=== PATIENT | male | born 1955 | race Caucasian/White ===

== ENCOUNTER → 2021-12-28 12:00 | Outpatient (BNVA) | payer MEDICARE, SELFPAY | PROVIDERS: Visit Provider Emergency Medicine | DX: R05.9 Cough, unspecified (principal); R06.02 Shortness of breath | CPT/HCPCS: 71046 ==

== ENCOUNTER 2022-01-04 13:10 | Outpatient (CLI) | payer MEDICARE, SELFPAY ==
--- NOTE | 2022-01-04 13:30 | CT_ITS ---
WS: [id number] CT CHEST TECHNIQUE: Noncontrast CT of the chest with coronal and sagittal reformatted images. CLINICAL INFORMATION: R91.8 - Other nonspecific abnormal finding of lung field COMPARISON: None. DLP: 771.[address] scans at [facility] use at least one of these dose optimization techniques: automated e xposure control; mA and/or kV adjustment per patient size (includes targeted exams where dose is matc hed to clinical indication); or iterative reconstruction. FINDINGS: Large RIGHT hilar and suprahilar mass measuring approximately 4.9 x 5.9 x 10.3 cm AP by transverse by craniocaudal. Mild associated narrowing of the RIGHT mainstem and RIGHT upper lobe bronchi. Associat ed mediastinal invasion. Anterior mediastinal and RIGHT hilar lymphadenopathy. Bulky subcarinal lymph adenopathy. Associated extension into the RIGHT upper lobe anteriorly along the anterior mediastinum. Compression of the SVC. Several noncalcified nodules in both lungs mainly in a subpleural location the largest measuring 7 mm . Normal GE junction. Noncontrast pancreas is normal. Splenic granulomas. Adrenal glands are normal. No axillary lymphadenopathy. CT/CT chest wo con [id number] IMPRESSION: 1. Large RIGHT hilar and suprahilar mass with compression of the SVC compatibl e with neoplasm. Recommend further evaluation with bronchoscopy. 2. Associated mediastinal invasion with bulky anterior mediastinal, RIGHT inez r, peribronchial, subcarinal lymphadenopathy. 3. Multiple noncalcified subpleural pulmonary nodules largest measuring 5 to 6 mm bilaterally. These are nonspecific but metastatic disease not excluded.
== END 2022-01-04 13:11 | disposition home or self-care (01) ==
LOC: RAD 13:14
PROVIDERS: Referring Provider Internal Medicine Pulmonary Disease; Visit Provider Emergency Medicine
DX: R91.8 Other nonspecific abnormal finding of lung field (principal); R05.9 Cough, unspecified; R06.02 Shortness of breath
CPT/HCPCS: 71250

== ENCOUNTER → 2022-01-07 08:31 | Outpatient (BNVA) | payer MEDICARE, SELFPAY | LOC: GILAB 01-08 06:05 → PULOACUTE 01-08 06:18 | PROVIDERS: PCP Emergency Medicine; Visit Provider Internal Medicine Pulmonary Disease | DX: R91.8 Other nonspecific abnormal finding of lung field (principal); R59.0 Localized enlarged lymph nodes; R68.89 Other general symptoms and signs; Z71.6 Tobacco abuse counseling; F17.210 Nicotine dependence, cigarettes, uncomplicated | CPT/HCPCS: 99204 ==

== ENCOUNTER 2022-01-08 07:37 | Day surgery (SDC) | payer MEDICARE, SELFPAY ==
[2022-01-08] VITALS (8 sets, daily range): BP systolic 121–142; BP diastolic 76–99; PULSE 68–91; RESP 18; TEMP 36.6–37.2; O2SAT 90–95; BMI 33.6
--- NOTE | 2022-01-08 08:40 | ANES.PREANE2 ---
Pre-Anesthetic Assessment Height/Weight: Height 1.7 m Weight 97.522 kg Temp Pulse Resp BP Pulse Ox O2 Del Method O2 Flow Rate 97.8 F 68 18 121/78 94 2 01/08/22 08:32 01/08/22 08:32 01/08/22 08:32 01/08/22 08:32 01/08/22 08:33 01/08/22 08:33 01/08/22 08:33 Operation Date: 01/08/22 09:20 Proposed Procedures p Ebus(Not Applicable) - Vito Chatterjee MD s Bronchoscopy(Not Applicable) - Vito Chatterjee MD Familial anesthetic complications: none Was Beta Arlene taken within 24 hours: Yes Was Clonidine taken within 24 hours: N/A Last intake: Intake Last Liquid Date 01/07/22 Last Liquid Time 22:30 Last Solid Date 01/07/22 Last Solid Time 18:00 Social Tobacco and No alcohol Exam alert, oriented x 3 and regular rate & rhythm Airway Submandibular: within normal limits Cervical ROM: within normal limits Mallampati: Class II Dentition: false Pulmonary Chronic Obstructive Pulmonary Disease and Sleep Apnea CV/HEM Coronary Artery Disease (stent), Hypertension, Myocardial Infarction and Peripheral Vascular Disease (AAA stent) Metabolic Morbid Obesity Anesthetic Plan ASA status: 3 Anesthesia: General Medications/Allergies Home Medications Medication Instructions Recorded Confirmed Last Taken Type albuterol sulfate 90 mcg/actuation 2 puff inhalation Q6H PRN 12/28/21 01/08/22 01/07/22 Rx aerosol inhaler shortness of breath or wheezing #8.5 grams ipratropium 0.5 mg-albuterol 3 mg 3 ml inhalation QID #180 mL 01/02/22 01/08/22 01/07/22 Rx (2.5 mg base)/3 mL nebulization soln nebulizers #1 ea 01/02/22 01/08/22 01/07/22 Rx amoxicillin 875 mg-potassium 1 tab PO BID 7 days #14 tabs 01/07/22 01/08/22 01/07/22 Rx clavulanate 125 mg tablet aspirin 81 mg tablet,delayed 81 mg PO DAILY 01/07/22 01/08/22 01/06/22 History release gabapentin 300 mg capsule 300 mg PO TID 01/07/22 01/08/22 01/07/22 History metoprolol tartrate 50 mg tablet 50 mg PO BID 01/07/22 01/08/22 01/08/22 History omeprazole 20 mg capsule,delayed 20 mg PO DAILY 01/07/22 01/08/22 01/07/22 History release tiotropium bromide 1.25 2 puff inhalation DAILY #4 grams 01/07/22 01/08/22 Unknown Rx mcg/actuation mist for inhalation (Spiriva Respimat) Allergies Allergy/AdvReac Type Severity Reaction Status Date / Time Statin Allergy Unknown Uncoded 01/07/22 08:48 [facility] Anesthesia Medical History Hilar mass Tuberculous tracheobronchial adenopathy Social History Smoking and tobacco status: current every day smoker cigarettes Packs smoked per day: 1.5 Years cigarettes smoked: 52 [ Other cigarette details: started at age 14] Data Anesthesia Cardiac Studies: No Data to Display
[2022-01-08] MEDS: sodium chloride 0.9% 1,000 ML 30 ML IV (12:03)
--- NOTE | 2022-01-08 12:32 | W.PM.OPSUD ---
Surgery/Procedure H&P Update DATE OF PROCEDURE: January 08, 2022 DATE H&P PERFORMED: 01/08/22 CHANGES TO PREVIOUS DOCUMENTATION: NONE PRIMARY INDICATION FOR PROCEDURE: HILAR /MEDIASTINAL LYMPHADENOPAHTY IN SMOKER - SUSPICIOUS FOR MALIGNANCY PLANNED PROCEDURE: Operation Date: 01/08/22 09:20 Proposed Procedures p Ebus(Not Applicable) - Vito Chatterjee MD s Bronchoscopy(Not Applicable) - Vito Chatterjee MD
[2022-01-08] MEDS: EPINEPHrine 1 mg/mL INJ XX (13:57)
[2022-01-08] MEDS: lidocaine 1% INJ 20 mL XX (13:57)
--- NOTE | 2022-01-08 14:05 | PM.OP ---
Operative Report Date of procedure: January 08, 2022 Pre-op diagnosis: suspected malignancy Post-op diagnosis: same Procedure done: 71884:Bronch via Trach site 70266:Dx Bronchoscope w/Washings or airway inspection 53217:Dx Bronchoscope w/BAL 57633:EBUS Sampling 1/2 nodes Brief History: 66-year-old male referred for mediastinal/hilar mass on recent imaging 01/04/2022. Patient endorses the loss of appetite as well as weight loss which he has been noticing last few months but could not quantify. Chest x-ray 12/28/2021 showed probable right hilar mass with associated right tracheobronchial lymphadenopathy for which he underwent a CT chest 01/04/2022 confirmed a large right hilar suprahilar mass with compression of SVC compatible with neoplasm and there is associated mediastinal invasion with bulky anterior mediastinal right hilar peribronchial and subcarinal lymphadenopathy.? There are multiple noncalcified subpleural pulmonary nodules largest measuring 5 to 6 mm bilaterally. Patient is current every day smoker, 1.5ppd X 52 years.? Currently smoking 1 pack/day.? Given his a significant smoking history these findings on CT chest are suspicious for malignancy. Today scheduled for bronchoscopic evaluation and endobronchial ultrasound-guided biopsies of hilar/mediastinal mass. Procedure: 24872:Bronch via Trach site 16404:Dx Bronchoscope w/Washings or airway inspection 29978:Dx Bronchoscope w/BAL 91042:EBUS Sampling 1/2 nodes Surgeon: Vito Chatterjee MD, [facility] Indication: large right hilar suprahilar mass with compression of SVC compatible with neoplasm and there is associated mediastinal invasion with bulky anterior mediastinal right hilar peribronchial and subcarinal lymphadenopathy-highly suspicious for malignancy in this patient with chronic smoking history. Anesthesia: General anesthesia. Local anesthesia: The yrn in the right and left mainstem bronchi were anesthetized with 1% lidocaine, 3 mL. Description of the procedure: The procedure was explained to the patient and the consent was obtained. The patient was brought to the OR. The patient underwent laryngeal mask airway for general anesthesia. Following induction of general anesthesia, the bronchoscope was advanced through the LMA. The trachea mucosa appeared normal, no endotracheal lesion was seen. The yrn was sharp. The ynr, the right and left mainstem bronchi are anesthetized with 1% lidocaine. In a systematic manner bilateral bronchial tree was then examined. The bronchoscope was advanced into the left mainstem bronchus. The mucosa appeared normal with no endobronchial lesions. The left upper lobe, lingula and left lower lobe bronchi were examined up to the third subsegmental level and no abnormalities were identified. Mucosa appeared normal with no endobronchial lesion, active bleeding or mucous plug. There were some clear secretions in lower lobe-which were suctioned right away. The bronchoscope was then introduced into the right mainstem bronchus. The right upper lobe, right middle lobe and right lower lobe bronchi were examined up to the third subsegmental level and no abnormalities were identified. The mucosa appeared normal with no endobronchial lesions, active bleeding or mucous plugs. Bronchoalveolar lavage was performed from the right upper lobe. 30 mL of saline was instilled, fluid return was 15 mL. The bronchoscope was retracted and endobronchial ultrasound was introduced. Identified a lymph node in station 7 area and fine-needle aspiration cytology samples were obtained. Prepared 1 touch prep from station 7 lymph node for JEN and preliminary pathology diagnosis was suspicious for malignancy. I made 3-4 more passes and obtained in station 7 area and tissue was placed in formalin for histopathology review. Also identified a large mass in 4R area- I made 3-4 more passes and obtained in station 7 area and tissue was placed in formalin for histopathology review. There were some bleeding from biopsy sites, which was controlled with cold saline and epinephrine mixture. EBUS retracted. Diagnostic bronchoscope reintroduced and after making sure there is no active bleeding, procedure was terminated. Samples: 1. Bronchoalveolar lavage specimen was sent for cell count and differential, gram stain and culture 2. EBUS guided fine-needle aspiration cytology of station 7 lymph node station 4R-samples sent in formalin for histopathology review Complications: None.The patient was extubated and brought to the PACU in stable condition. Disposition: Patient can be discharged home in stable condition. I will set up clinic follow-up in 7-10 days to follow-up on biopsy results.
[2022-01-08 14:45] LABS: Cyto Order Verification Order Verified
--- NOTE | 2022-01-08 16:08 | ANE.PACU2 ---
Inpatient post-anesthesia follow up: Airway intact: Yes Vital signs: Temperature 99.0 F Pulse Rate 84 Respiratory Rate 18 Blood Pressure 134/99 Pulse Oximetry 92 Oxygen Delivery Me thod Room Air Oxygen Flow Rate 2 Fraction of Inspir ed Oxygen Hydration adequate: Yes Nausea and vomiting: No Pain level: 2 Mental status: Baseline
[2022-01-09 14:15] LABS: Lymphoma Profile (BBPL) See Report
== END 2022-01-08 15:01 | disposition home or self-care (01) ==
PROVIDERS: PCP Emergency Medicine; Visit Provider Internal Medicine Pulmonary Disease
PROC: BB4BZZZ Ultrasonography of Pleura (ICD-10-PCS; principal; 2022-01-08 09:10)
PROC: 0BJ08ZZ Inspection of Tracheobronchial Tree, Via Natural or Artificial Opening Endoscopic (ICD-10-PCS; CPT 31622; 2022-01-08 09:10)
DX: C34.90 Malignant neoplasm of unspecified part of unspecified bronchus or lung (principal); I25.10 Atherosclerotic heart disease of native coronary artery without angina pectoris; J44.9 Chronic obstructive pulmonary disease, unspecified; G47.30 Sleep apnea, unspecified; Z95.5 Presence of coronary angioplasty implant and graft; I10 Essential (primary) hypertension; I25.2 Old myocardial infarction; E66.01 Morbid (severe) obesity due to excess calories; Z68.33 Body mass index [BMI] 33.0-33.9, adult; Z79.82 Long term (current) use of aspirin; F17.210 Nicotine dependence, cigarettes, uncomplicated
CPT/HCPCS: 31624; 31652; 80503; 87070; 87077; 87102; 87186; 87205; 87206; 88108; 88184; 88185; 88305; 88342; J0171; J2704; J7030

== ENCOUNTER → 2022-01-22 14:10 | Outpatient (BNVA) | payer MEDICARE, SELFPAY | PROVIDERS: PCP Emergency Medicine; Visit Provider Surgery | DX: C34.90 Malignant neoplasm of unspecified part of unspecified bronchus or lung (principal) | CPT/HCPCS: 99203 ==

== ENCOUNTER 2022-01-24 10:16 | Day surgery (SDC) | payer MEDICARE, SELFPAY ==
[2022-01-23 14:27] VITALS: BMI 32.8
[2022-01-24] VITALS (9 sets, daily range): BP systolic 106–137; BP diastolic 68–94; PULSE 57–64; RESP 17–25; TEMP 36.3–36.6; O2SAT 91–99
--- NOTE | 2022-01-24 | SCC_ITS ---
Procedure done: Mediport insertion 37 seconds of fluoroscopic guidance, for a cumulative dose of 9.8 mGy, was provided to Dr. Peña by the radiology department. C-arm images of the chest were saved for the patient's permanent record. [facility]
--- NOTE | 2022-01-24 | XR_ITS ---
WS: [id number] Portable AP upright chest, 01/24/2022 Clinical Data: pacu, post op, mediport Comparison: PA and lateral chest, 12/28/2021 Findings: The large right hilar and right tracheobronchial mass remains the same. The right diaphragm is elevated. There is a left infusion catheter which ends in the superior vena cava. The heart is sl ightly enlarged. The aortic arch shows calcification and tortuosity. The left lung is clear. There is a monitor lead on the chest wall. XR/XR chest 1V portable [id number] Impression: 1. No change in right hilar and right upper lobe mass. 2. Atherosclerosis.
--- NOTE | 2022-01-24 10:25 | W.PM.OPSUD ---
Surgery/Procedure H&P Update DATE OF PROCEDURE: January 24, 2022 DATE H&P PERFORMED: 01/22/22 PLANNED PROCEDURE: Operation Date: 01/24/22 11:50 Proposed Procedures p 11470 port a cath placement C34.90(Not Applicable) - Prasanth Peña DO
--- NOTE | 2022-01-24 10:28 | SC_ITS ---
WS: [id number] C-arm fluoroscopy of infusion port placement, 01/24/2022 Clinical Data: s/p mediport Comparison: None. Findings: Dr. Peña placed a left subclavian port catheter and the tip of the port ends in the superior vena cava. SC/C-arm FL for CVA 62025 Impression: Left infusion port catheter placement.
[2022-01-24] MEDS: sodium chloride 0.9% 1,000 ML 30 ML IV (10:50)
[2022-01-24] MEDS: ceFAZolin 2,000 MG in sodium chloride 0.9% (plus) 50 ML 100 MG IV (11:36)
[2022-01-24] MEDS: heparin, porcine 1,000 unit/mL INJ 10 mL 10000 UNIT INJECTION (12:06)
--- NOTE | 2022-01-24 13:06 | PM.OP ---
Operative Report Date of procedure: January 24, 2022 Pre-op diagnosis: Preop Diagnosis Lung cancer Post-op diagnosis: same Procedure done: Mediport insertion Implants: Mediport Surgeon: Dr. Prasanth Peña DO Anesthesia: MAC Estimated blood loss (mL): 20 Complications: None apparent Brief History: This very pleasant 66-year-old gentleman with lung cancer. Mediport placement is indicated for chemotherapy. The risks and benefits were explained and documented. Procedure: Patient was taken to the operating room and placed supine on the operating room table. All bony prominences were padded. She was given IV sedation and monitored throughout the case by the anesthesia personnel. SCDs were placed and turned on. The arms were tucked to the side. Patient received Ancef 2 g preoperatively IV. The bilateral chest wall was prepped and draped in usual sterile fashion using chlorhexidine base prep. Sterile drapes were applied. We did procedure pause prior to beginning. An 18 gauge needle was placed in the right/left subclavian vein. Dark, nonpulsatile blood was aspirated. A guidewire was placed through the needle centrally toward the atrial/vena caval junction. Fluoroscopy visualized good placement. The needle was removed and the guidewire was clipped to the drape with a hemostat. Further local anesthetic was infiltrated in the soft tissues of the right/left chest wall and a #15 blade was used to make a horizontal skin incision. A subcutaneous Mediport pocket was created using Bovie cautery, dissecting down through the skin and subcutaneous tissues. Meticulous hemostasis was achieved. The Mediport was sutured in position using 3-0 vicryl suture x2 stitches. A #15 blade was used to make a small skin luz around the guidewire insertion area. The Mediport tubing was tunneled through the subcutaneous tissues up to the needle insertion location. A dilator with a peel-away sheath was placed over the guidewire and placed centrally. After measuring with fluoroscopy, the Mediport tubing was cut to length so that the tip would end at the atrial/vena caval junction. The inner cannula and the guidewire were removed, leaving the dilator sheath in place. The Mediport was flushed. The tip of the catheter was inserted through the peel-away sheath and the peel-away sheath removed in the standard fashion. Despite numerous attempts to get the catheter to go caudad towards the heart, it repeatedly would go across the mediastinum. The Mediport was accessed with a straight Tillman needle and dark, nonpulsatile blood was aspirated and flushed using heparinized saline to hep-lock the Mediport. The Mediport was functioning very well. Final fluoroscopy visualization showed no kink in the catheter and the tip of the Mediport going across the mediastinum. But again the Mediport was functioning very well.. Both skin incisions were thoroughly irrigated and suctioned dry. Meticulous hemostasis noted. The Mediport incision was closed using interrupted 3-0 Vicryl suture for the deep dermal layer and 4-0 Vicryl run to close the skin edge. The right/left subclavian insertion site incision was closed with a single subcuticular stitch. Skin glue was applied as a topical dressing. This was allowed to dry. Patient was awakened from anesthesia and transferred via her cart to the recovery room in stable condition. All needle, sponge, and instrument counts were correct per the operating personnel x2 count
--- NOTE | 2022-01-24 13:49 | P.ANESASSM_ITS ---
Pre-Anesthetic Assessment Height/Weight: Height 1.7 m Weight 95.254 kg Temp Pulse Resp BP Pulse Ox O2 Del Method O2 Flow Rate 97.6 F 61 19 H 117/76 94 6 01/24/22 13:30 01/24/22 13:30 01/24/22 13:30 01/24/22 13:30 01/24/22 13:30 01/24/22 13:30 01/24/22 13:20 Preop Diagnosis: Lung cancer Operation Date: 01/24/22 11:50 Proposed Procedures p [id number] port a cath placement C34.90(Not Applicable) - Prasanth Peña DO Familial anesthetic complications: none Was Beta Arlene taken within 24 hours: Yes Was Clonidine taken within 24 hours: N/A Last intake: Intake Last Liquid Date 01/24/22 Last Liquid Time 07:40 Last Solid Date 01/23/22 Last Solid Time 19:00 Social Tobacco and No alcohol Exam alert, oriented x 3 and regular rate & rhythm Airway Submandibular: within normal limits Cervical ROM: within normal limits Mallampati: Class II Dentition: false Pulmonary Chronic Obstructive Pulmonary Disease and Sleep Apnea CV/HEM Coronary Artery Disease (stents) and Hypertension GI Gastroesophageal Reflux Disease Metabolic Morbid Obesity Anesthetic Plan ASA status: 3 Anesthesia: Choice Medications/Allergies Home Medications Medication Instructions Recorded Confirmed Last Taken Type albuterol sulfate 90 mcg/actuation 2 puff inhalation Q6H PRN 12/28/21 01/23/22 01/07/22 Rx aerosol inhaler shortness of breath or wheezing #8.5 grams ipratropium 0.5 mg-albuterol 3 mg 3 ml inhalation QID #180 mL 01/02/22 01/23/22 01/07/22 Rx (2.5 mg base)/3 mL nebulization soln nebulizers #1 ea 01/02/22 01/22/22 01/07/22 Rx aspirin 81 mg tablet,delayed 81 mg PO DAILY 01/07/22 01/24/22 01/23/22 History release metoprolol tartrate 50 mg tablet 50 mg PO BID 01/07/22 01/24/22 01/24/22 07:40 History omeprazole 20 mg capsule,delayed 20 mg PO DAILY 01/07/22 01/24/22 01/23/22 Histo ry release gabapentin 300 mg capsule 300 mg PO BID 11/10/0501/24/22 01/23/22 History lorazepam 0.5 mg tablet (Ativan) 0.5 mg PO Q8H PRN anxiety #60 tabs 01/21/22 01/23/22 Unknown Rx oxycodone-acetaminophen 5 mg-325 1 - 2 tab PO .Q4-6H PRN pain 30 01/21/22 01/24/22 01/23/22 Rx mg tablet (Percocet) days #60 tabs umeclidinium 62.5 mcg-vilanterol 1 inh inhalation DAILY #60 ea 01/21/22 01/24/22 01/23/22 Rx 25 mcg/actuation powdr for inhalation (Anoro Ellipta) Allergies Allergy/AdvReac Type Severity Reaction Status Date / Time Statin Allergy Unknown Uncoded 01/23/22 14:15 Current Medications Generic Name Dose Route Start Last Admin Trade Name Freq PRN Reason Stop Dose Admin Sodium Chloride 1,000 mls @ 30 mls/hr 01/24/22 10:30 01/24/22 10:50 Sodium Chloride 0.9% IV 01/25/22 10:29 30 mls/hr .Q24H DESTINY Administration PFSH Anesthesia Medical History (Updated 01/23/22 @ 16:18 by Ayla Desai MD) Abdominal aortic aneurysm Carpal tunnel syndrome on both sides Congenital umbilical hernia Hilar mass Hypertension Past heart attack Small cell lung cancer Small cell lung cancer, right middle lobe Tuberculous tracheobronchial adenopathy Surgical History History of heart artery stent S/P rotator cuff repair Family History Other CAD (coronary artery disease) Cancer Diabetes Hyperlipidemia Hypertension Lung disease Psychiatric illness Stroke Denies family history of Clotting disorder Dementia Chronic kidney disease (CKD) Suicide Anesthesia complication Bleeding disorder Social History Smoking and tobacco status: former smoker (smoked x 50+ years) Alcohol intake: never Data Anesthesia Cardiac Studies: No Data to Display
[2022-01-24] MEDS: oxyCODONE-APAP 5-325 mg Tablet 1 TAB PO (14:11)
--- NOTE | 2022-01-24 14:33 | SUR.PHASEII ---
patient port site oozing minimally. additional dressing of gauze and tegaderm applied to incision site. instructed patient to leave for 2 days
--- NOTE | 2022-01-24 15:36 | ANE.PACU2 ---
Inpatient post-anesthesia follow up: Airway intact: Yes Vital signs: Temperature 97.6 F Pulse Rate 57 Respiratory Rate 18 Blood Pressure 125/76 Pulse Oximetry 91 Oxygen Delivery Me thod Room Air Oxygen Flow Rate 6 Fraction of Inspir ed Oxygen Hydration adequate: Yes Nausea and vomiting: No Pain level: 2 Mental status: Baseline
== END 2022-01-24 14:32 | disposition home or self-care (01) ==
PROVIDERS: PCP Emergency Medicine; Visit Provider Surgery
PROC: (CPT 36561; principal; 2022-01-24 11:40)
DX: C34.90 Malignant neoplasm of unspecified part of unspecified bronchus or lung (principal); J44.9 Chronic obstructive pulmonary disease, unspecified; G47.30 Sleep apnea, unspecified; I25.10 Atherosclerotic heart disease of native coronary artery without angina pectoris; Z95.5 Presence of coronary angioplasty implant and graft; I10 Essential (primary) hypertension; K21.9 Gastro-esophageal reflux disease without esophagitis; E66.01 Morbid (severe) obesity due to excess calories; Z68.32 Body mass index [BMI] 32.0-32.9, adult; Z79.82 Long term (current) use of aspirin
CPT/HCPCS: 36561; 71045; 77001; C1788; J0690; J1644; J2704; J3010; J7030

== ENCOUNTER 2022-02-04 09:09 | Inpatient (IN) | payer MEDICARE, SELFPAY ==
[2022-02-04] VITALS (43 sets, daily range): BP systolic 119–168; BP diastolic 77–104; PULSE 64–882; RESP 14–25; TEMP 36.5–36.8; O2SAT 90–98; BMI 33.0
--- NOTE | 2022-02-04 09:14 | ECG_ITS ---
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 Measurements Intervals [place] Rate: 65 P: -40 WA: 213 QRS: -60 QRSD: 114 T: 17 QT: 389 QTc: 407 Interpretive Statements SINUS RHYTHM WITH FIRST DEGREE AV BLOCK PATTERN CONSISTENT WITH PULMONARY DISEASE LEFT ANTERIOR FASCICULAR BLOCK [QRS AXIS <= -45, QR IN I, RS IN II] No previous ECG available for comparison Electronically Signed On 02-04-2022 17:08:07 [employer] by Mervin Noe M.D. [id number]
--- NOTE | 2022-02-04 09:14 | CT_ITS ---
WS: [id number] CT HEAD NONCONTRAST HISTORY: SYMPTOMS OF ACUTE STROKE TECHNIQUE: Contiguous axial imaging performed through the brain in 2.5 mm imaging. Bone and soft tiss ue windows. Sagittal and coronal reformats reviewed. All CT scans at [facility] use at least one of these dose optimization techniques: automated exposure control; mA and/or kV adjustment per pa tient size (includes targeted exams where dose is matched to clinical indication); or iterative recon struction. DLP: 1149.75 mGy-cm. COMPARISON: Recent MRI 01/23/2022 No acute intracranial hemorrhage, midline shift or mass effect. Very mild atrophy and mild to moderate small vessel ischemic type changes. No loss of the simpson-white matter differentiation. No hemorrhage. Ventricles: Normal size with no hydrocephalus. No inferior displacement of the cerebellar tonsils. Paranasal sinuses: As visualized are clear. Mastoid air cells: Well pneumatized. Calvarium and scalp: Skull is intact with no soft tissue edema or swelling. CT/CT head thrombolytic 25847 IMPRESSION: 1. No acute intracranial hemorrhage or edema. 2. Mild atrophy and mild to moderate small vessel ischemic changes.
--- NOTE | 2022-02-04 09:24 | ED_ITS ---
HPI - Neuro Symptoms/Deficit General: Chief Complaint: Neuro Symptoms/Deficit Stated Complaint: STROKE LIKE SYMPTOMS Time Seen by Provider: 02/04/22 09:14 History of Present Illness: 66-year-old male who presents to the emergency room from the waiting room of the oncology center with complaints of a right- sided weakness. He was there to get an infusion and suddenly began to feel nu mbness tingling weakness in his right arm and leg and developed facial weakness. He was able to identify all of his symptoms and vocalized them there was also report of some difficulty with his speech. Rapid response was called he was brought back to the emergency room as a stroke alert they stopped in CT suite initially. I seen very briefly there. His CT did not show any signs of bleed. He did have a subclavian PowerPort placed to 2 weeks ago on the left. Couple months ago he had a iliac stent placed. He has stage III lung cancer. Onset (ago): minute(s) Location: speech History of same: Yes Severity: mild Quality: weak and numb Relieving factors: none Exacerbating factors: none Context: sudden onset Associated symptoms: Reports tingling and weakness; Deny chest pain, cough, diaphoresis, fevers/chills, headache(s), anorexia, ma laise, nausea, seizures, short of breath, syncope, vertigo or vomiting Treatments Prior to Arrival: none Review of Systems Const: Denies: fever(s), chills, fatigue, malaise or diaphoresis ENMT: Denies: throat pain, ear or mastoid pain, nasal discharge or nasal congestion Card: Denies: chest pain or syncope Resp: Denies: dyspnea, productive cough or non-productive cough GI: Denies: abdominal pain, nausea or vomiting : Denies: flank pain, dysuria, urinary frequency or urinary urgency Skin/Breast: Denies: rash or pruritus Neuro: Reports: numbness in extremities, weakness in extremities, sensory changes, lack of coordination, difficulty walking, dizziness and Slurred speech present; Denies: headache(s) or vertigo PFS ED PFSH: Medical History (Updated 02/04/22 @ 12:13 by Dimas Cuadra DO) Abdominal aortic aneurysm Carpal tunnel syndrome on both sides Chronic back pain Congenital umbilical hernia COPD (chronic obstructive pulmonary disease) Coronary artery disease GERD (gastroesophageal reflux disease) Hilar mass Hypertension Past heart attack Small cell lung cancer Small cell lung cancer, right middle lobe Tuberculous tracheobronchial adenopathy Surgical History (Updated 02/04/22 @ 12:00 by Montrell Graff MD) History of endovascular stent graft for abdominal aortic aneurysm (AAA) History of heart artery stent S/P rotator cuff repair Family History Other CAD (coronary artery disease) Cancer Diabetes Hyperlipidemia Hypertension Lung disease Psychiatric illness Stroke Denies family history of Clotting disorder Dementia Chronic kidney disease (CKD) Suicide Anesthesia complication Bleeding disorder Social History Smoking and tobacco status: former smoker (smoked x 50+ years) Alcohol intake: never NIH stroke score NIHSS: Level Of Consciousness - 1a: 0 Level Of Consciousness Questions - 1b: Both Correct Level Of Consciousness Commands - 1c: Both Correct Best Gaze - 2: Normal Visual Vidal - 3: No Visual Loss Facial Palsy - 4: Minor Paralysis Motor Arm Right - 5: No Drift Motor Arm Left - 5: Effort Against [place] Motor Leg Right - 6: No Drift Motor Leg Left - 6: Effort Against [place] Limb Ataxia - 7: Present In Two Limbs Sensory - 8: Mild To Moderate Loss Best Language - 9: No Aphasia Dysarthia - 10: Normal Extinction And Inattention - 11: 0 Score: Total Score: 8 Physical Exam Const: GENERAL APPEARANCE: cooperative and comfortable ORIENTATION/CONSCIOUSNESS: Yes awake, Yes oriented to person, Yes oriented to place and Yes oriented to time HENMT: COMMON NORMALS: normocephalic, atraumatic and hearing grossly normal bilaterally HEAD & SCALP: normocephalic and atraumatic Resp: COMMON NORMALS: normal respiratory effort, No retractions, No use of accessory muscles and clear to auscultation bilaterally AUSCULTATION: clear to auscultation bilaterally Cardio: COMMON NORMALS: regular rate, regular rhythm and No murmurs present (Cardio) RATE: regular rate RHYTHM: regular rhythm GI: COMMON NORMALS: Soft to palpation and No hepatosplenomegaly present AUSCULTATION: Yes normoactive bowel sounds PALPATION: Yes Soft to palpation, No Tenderness to palpation present (GI), No Guarding due to palpation present (GI) and Yes No hepatosplenomegaly present Extremity: COMMON NORMALS: normal to inspection, capillary refill normal, no clubbing, cyanosis or edema, no calf tenderness and no pedal edema Neuro: SENSORIUM/ORIENTATION: Yes oriented to person, Yes oriented to place and Yes oriented to time Skin: COMMON NORMALS: no rashes or lesions noted GENERAL SKIN EXAM: no rashes or lesions noted Course Vital Signs: Vital signs: Vital Signs Temperature 97.7 F 02/04/22 09:22 Pulse Rate 66 02/04/22 10:45 Respiratory Rate 20 H 02/04/22 10:45 Blood Pressure 136/80 02/04/22 10:45 Pulse Oximetry 93 02/04/22 10:45 Oxygen Delivery Me thod 02/04/22 09:22 Oxygen Flow Rate 2 02/04/22 09:22 MDM - Neuro Symptoms/Deficit Medical Decision Making By report I would put his initial NIH at 8 or 9. When I first contact the patient he had improved to a 7. The initial NIH documented in the chart was my initial contact with him. They reported facial weakness and speech difficulties that were present prior to him arriving here that would have given him 2 more points. When I seen him the speech and facial difficulties had resolved. Interestingly from the time I did a complete NIH in the trauma bay documented in the computer and went back into talk to the patient about the possibility of tPA his score had improved to a 4 he was able to lift and move his left arm and leg. I discussed with Dr. Hicks we both agree he has no exclusionary criteria and he still does meet criteria for thrombolytics discussed with the patient and his our recommendation of them is to proceed they wish to go and proceed he was given tPA Dr. Hicks did come to the ER and see the patient as well and discussed with him and she concurs with tPA treatment. Patient significantly improved. His port was not able to draw the infuse of tPA through the port hopefully they will open it up as well. Patient's left-sided symptoms have nearly completely resolved will admit to ICU discussed Dr. Graff orders are written Medical Records I reviewed the patient's medical records. Lab Data I reviewed the patient's lab results. 02/04/22 09:30 02/04/22 09:[address] 02/04/22 09:14 IMPRESSION: 1. No acute intracranial hemorrhage or edema. 2. Mild atrophy and mild to moderate small vessel ischemic changes. Head/Neck CTA 02/04/22 09:46 IMPRESSION: 1. Mild atherosclerotic disease. No significant stenosis or acute occlusion. 2. No occlusion or aneurysm within the [place] of [place]. 3. Known large RIGHT paratracheal mass and pulmonary nodules. Laboratory Results WBC 8.8 10^3/uL (4.0-10.0) 02/04/22 09:30 RBC 4.50 10^6/uL (4.1-5.3) 02/04/22 09:30 Hgb 13.1 g/dL (11.7-16.6) 02/04/22 09:30 Hct 39.8 % (42.0-52.0) L 02/04/22 09:30 MCV 88.4 fl (80-94) 02/04/22 09:30 MCH 29.1 pg (28.0-34.0) 02/04/22 09:30 MCHC 32.9 g/dL (30.0-36.0) 02/04/22 09:30 RDW 15.1 % (12.1-15.1) 02/04/22 09:30 Plt Count 207 10^3/cmm (130-400) 02/04/22 09:30 MPV 11.6 fL (7.4-10.4) H 02/04/22 09:30 Neut % (Auto) 48.4 % 02/04/22 09:30 Lymph % (Auto) 34.2 % 02/04/22 09:30 [place] % (Auto) 13.1 % 02/04/22 09:30 Eos % (Auto) 3.3 % 02/04/22 09:30 Baso % (Auto) 0.8 % 02/04/22 09:30 Neut # (Auto) 4.25 10^3/uL (1.8-7.7) 02/04/22 09:30 Lymph # (Auto) 3.0 10^3/uL (0.8-4.8) 02/04/22 09:30 [place] # (Auto) 1.2 10^3/uL (0.2-0.9) H 02/04/22 09:30 Eos # (Auto) 0.3 10^3/uL (0.0-0.8) 02/04/22 09:30 Baso # (Auto) 0.1 10^3/uL (0.0-0.1) 02/04/22 09:30 Nucleated RBC % (auto) 0 % 02/04/22 09:30 Nucleated RBCs # 0.0 /100WBC 02/04/22 09:30 PT 13.80 SECONDS (12.1-14.9) 02/04/22 09:30 INR 1.03 (0.8-1.2) 02/04/22 09:30 APTT 33.6 SECONDS (23.9-36.7) 02/04/22 09:30 Sodium 136 mmol/L (136-145) 02/04/22 09:30 Potassium 4.4 mmol/L (3.5-5.1) 02/04/22 09:30 Chloride 98 mmol/L (98-107) 02/04/22 09:30 Carbon Dioxide 27 mmol/L (22-29) 02/04/22 09:30 Anion Gap 15.4 (5-19) 02/04/22 09:30 BUN 16 mg/dL (8-23) 02/04/22 09:30 Creatinine 0.8 mg/dL (0.7-1.2) 02/04/22 09:30 GFR Calculation 96.4 mL/min (90-130) 02/04/22 09:30 Glucose 85 mg/dL (65-115) 02/04/22 09:30 Calculated Osmolality 282 mOsm/kg (285-295) L 02/04/22 09:30 Calcium 10.2 mg/dL (8.5-10.5) 02/04/22 09:30 Total Bilirubin 0.7 mg/dL (0.15-1.2) 02/04/22 09:30 AST 23 U/L (0-40) 02/04/22 09:30 ALT 14 U/L (0-41) 02/04/22 09:30 Alkaline Phosphatase 109 U/L (40-130) 02/04/22 09:30 Total Protein 7.7 g/dL (6.6-8.7) 02/04/22 09:30 Albumin 3.9 g/dL (3.5-5.2) 02/04/22 09:30 Globulin 3.8 g/dL (1.3-4.6) 11/21/22 09:30 Discharge Plan Discharge Patient Disposition: Admitted As Inpatient Admit Provider: Montrell Graff Clinical Impression: Cerebrovascular accident, Small cell lung cancer, right middle lobe Condition: Stable Coding Level of Care Code ED Stem Crusher for Chg Fwd Exam Detailed
[2022-02-04 09:38] LABS: Basophils # 0.1 10^3/uL (0.0-0.1); Basophils % 0.8 %; Eosinophils # 0.3 10^3/uL (0.0-0.8); Eosinophils % 3.3 %; Hematocrit 39.8 % (42.0-52.0); Hemoglobin 13.1 g/dL (11.7-16.6); Lymphocytes % 34.2 %; Mean Corpuscular HGB Conc 32.9 g/dL (30.0-36.0); Mean Corpuscular Hemoglobin 29.1 pg (28.0-34.0); Mean Corpuscular Volume 88.4 fl (80-94); Mean Platelet Volume 11.6 fL (7.4-10.4); Monocytes # 1.2 10^3/uL (0.2-0.9); Monocytes % 13.1 %; Neutrophils # 4.25 10^3/uL (1.8-7.7); Neutrophils % 48.4 %; Nucleated Red Blood Cells % 0 %; Platelet Count 207 10^3/cmm (130-400); Red Cell Distribution Width 15.1 % (12.1-15.1); White Blood Count 8.8 10^3/uL (4.0-10.0)
--- NOTE | 2022-02-04 09:38 | PC.NURSE ---
PT IS ON CONTINUOUS SPO2, NIBP, AND CM.
--- NOTE | 2022-02-04 09:46 | CT_ITS ---
WS: [id number] CT ANGIOGRAM CEREBRAL AND CAROTID ARTERIES HISTORY: acute CVA TECHNIQUE: CT angiogram is performed of the carotid and cerebral arteries. During arterial injection imaging is obtained from the skull vertex to the aortic arch in 1.25 mm imaging. Coronal and sagittal reformats are submitted. Additional multi planar reformats of the carotid and cerebral arteries are submitted, MIP imaging also reviewed. NASCET criteria utilized. [facility] CT [facility] at least one of these dose optimization techniques: automated exposure control; mA and/or kV adjust ment per patient size (includes targeted exams where dose is matched to clinical indication); or iter ative reconstruction. CONTRAST: Omnipaque 350; 100 mL IV. DLP: 514.26 mGy.cm COMPARISON: 01/04/2022 Carotid Angiogram: Right carotid: Common carotid artery: Arises normally from the innominate artery. No significant plaque or stenosis. Internal carotid artery: Mild atherosclerotic thickening. No significant plaque deposition or stenosi s. External carotid artery: Patent. Left carotid: Common carotid artery: Arises normally from the aorta. No significant plaque or stenosis. Internal carotid artery: Very mild atherosclerotic plaque and intimal thickening. No occlusions. External carotid artery: Patent. Right vertebral artery: Dominant and well opacified. Left vertebral artery: Small caliber LEFT vertebral artery. May be occluded proximally. There is a ve ry small proximal LEFT vertebral artery. Subclavian arteries: No stenosis or significant abnormality. Upper thorax: Patient has known bilateral pulmonary nodules. There is a large mass centered in the me diastinum and RIGHT paratracheal region which has been previously described on 01/04/2022 with partia l obstruction and displacement of the SVC. Thyroid gland: Normal. Osseous structures: Unremarkable. CEREBRAL ANGIOGRAM: Intracranial vertebral arteries: Dominant RIGHT vertebral artery. Very small caliber distal LEFT vert ebral artery but it is patent. Basilar artery: No significant stenosis or occlusion. No aneurysm. Intracranial Internal carotid arteries: Mild scattered plaque. No occlusions or thrombus identified. Middle cerebral arteries: Normal. Anterior cerebral arteries and ACOM: Normal. Posterior cerebral arteries and PCOM's: Very small or hypoplastic LEFT posterior communicating artery . Posterior cerebral arteries are both patent. Dural venous sinuses are normally enhancing. Mastoid air cells: Normal. Paranasal sinuses: Normal. Calvarium: Normal. CT/CT angio headneck* [id number] IMPRESSION: 1. Mild atherosclerotic disease. No significant stenosis or acute occlusion. 2. No occlusion or aneurysm within the [place] of [place]. 3. Known large RIGHT paratracheal mass and pulmonary nodules.
[2022-02-04 09:54] LABS: INR 1.03 (0.8-1.2)
[2022-02-04 09:55] LABS: Partial Thromboplastin Time 33.6 SECONDS (23.9-36.7)
[2022-02-04 09:58] LABS: Alanine Aminotransferase 14 U/L (0-41); Albumin Level 3.9 g/dL (3.5-5.2); Alkaline Phosphatase 109 U/L (40-130); Anion Gap 15.4 (5-19); Aspartate Amino Transferase 23 U/L (0-40); Blood Urea Nitrogen 16 mg/dL (8-23); Calcium 10.2 mg/dL (8.5-10.5); Carbon Dioxide 27 mmol/L (22-29); Chloride 98 mmol/L (98-107); Globulin 3.8 g/dL (1.3-4.6); Glomerular Filtration Rate 96.4 mL/min (90-130); Glucose 85 mg/dL (65-115); Osmolality Calculated 282 mOsm/kg (285-295); Potassium 4.4 mmol/L (3.5-5.1); Sodium 136 mmol/L (136-145); Total Bilirubin 0.7 mg/dL (0.15-1.2); Total Protein 7.7 g/dL (6.6-8.7)
[2022-02-04] MEDS: iohexol 350 mg/mL 500 mL Btl (per mL) IV ×2 (10:10→17:20)
--- NOTE | 2022-02-04 11:55 | PM.HP ---
Providers/Chief Complaint Admitting Physician: Montrell Graff MD Primary Care Provider: EUSEBIO Sanchez Chief Complaint: STROKE LIKE SYMPTOMS History of Present Illness Karl Martinez is a 66 year old male who this morning around 9 AM was at the infusion center getting ready for his first chemotherapy treatment. He started having trouble with left facial numbness, slurred speech, left upper and left lower extremity paresis. noticed symptoms of stroke, alerted the nurse, and he was diverted to the emergency department and stroke alert was called. Evaluation by the emergency department physician as well as neurology occurred, and it was deemed he was a candidate for tPA which was given after CT scan head showed no hemorrhage. CTA head and neck also done which demonstrated no occlusion or aneurysm. Stroke score prior to tPA was a 7. Patient reports he is currently doing better. reports he has no slurred speech, or facial droop currently. She reports his strength is improving and patient agrees. He denies any headache or nausea. He denies any recent injury. Most recent surgery was a port placement, January 24. Occasionally does have dark stools. Review of Systems General: Reports: 10 or more systems reviewed and unremarkable except in HPI and below Const: Denies: fever(s) or chills Eyes: Denies: change in vision ENMT: Denies: throat pain Card: Denies: chest pain Resp: Denies: dyspnea GI: Denies: nausea or vomiting : Denies: flank pain Musc: Denies: neck pain Skin/Breast: Denies: rash Neuro: Reports: weakness in extremities and sensory changes; Denies: headache(s) Psych: Denies: anxiety or depression Endo: Denies: polyuria Antoni/Lymph: Denies: easy bruising All/Imm: Denies: urticaria Medications/Allergies Home Medications Medication Instructions Recorded Confirmed Last Taken Type albuterol sulfate 90 mcg/actuation 2 puff inhalation Q6H PRN 12/28/21 02/04/22 01/07/22 Rx aerosol inhaler shortness of breath or wheezing #8.5 grams nebulizers #1 ea 01/02/22 02/04/22 01/07/22 Rx aspirin 81 mg tablet,delayed 81 mg PO QAM 01/07/22 02/04/22 02/04/22 History release metoprolol tartrate 50 mg tablet 50 mg PO BID 10/02/04/22 02/04/22 History omeprazole 20 mg capsule,delayed 20 mg PO QAM 01/07/22 02/04/22 02/04/22 History release gabapentin 300 mg capsule 300 mg PO BEDTIME 01/21/22 02/04/22 02/03/22 History lorazepam 0.5 mg tablet (Ativan) 0.5 mg PO Q8H PRN anxiety #60 tabs 01/21/22 02/04/22 Unknown Rx oxycodone-acetaminophen 5 mg-325 1 - 2 tab PO .Q4-6H PRN pain 30 01/21/22 02/04/22 02/03/22 Rx mg tablet (Percocet) days #60 tabs lorazepam 1 mg tablet 0.5 - 1 mg PO Q6H PRN Severe 01/31/22 02/04/22 Unknown Rx Nausea #30 tabs prochlorperazine maleate 10 mg 10 mg PO Q4H PRN Mild Nausea #30 01/31/22 02/04/22 Unknown Rx tablet (Compazine) tabs allopurinol 100 mg tablet 100 mg PO BID #60 tabs 02/01/22 02/04/22 02/04/22 Rx ascorbic acid (vitamin C) 1,000 mg 1,000 mg PO QAM 02/04/22 02/04/22 02/04/22 History tablet (Vitamin C) cholecalciferol (vitamin D3) 25 25 mcg PO QAM 02/04/22 02/04/22 02/04/22 History mcg (1,000 unit) tablet (Vitamin D3) cyanocobalamin (vitamin B-12) 1,000 mcg PO QAM 02/04/22 02/04/22 02/04/22 History 1,000 mcg tablet (Vitamin B-12) ipratropium 0.5 mg-albuterol 3 mg 3 ml inhalation QID PRN unknown 02/04/22 02/04/22 Unknown History (2.5 mg base)/3 mL nebulization soln multivitamin 1 tab PO QAM 02/04/22 02/04/22 02/04/22 History nitroglycerin 0.4 mg sublingual 0.4 mg sublingual Q5M PRN Chest 02/04/22 02/04/22 Unknown History tablet (Nitrostat) Pain umeclidinium 62.5 mcg-vilanterol 1 inh inhalation QAM 02/04/22 02/04/22 02/04/22 History 25 mcg/actuation powdr for inhalation (Anoro Ellipta) Allergies Allergy/AdvReac Type Severity Reaction Status Date / Time [id number] Reductase Allergy Unknown Verified 02/04/22 10:26 Inhibitor PFSH Acute PFSH: Medical History (Updated 02/04/22 @ 12:14 by Montrell Graff MD) Abdominal aortic aneurysm Carpal tunnel syndrome on both sides Chronic back pain Congenital umbilical hernia COPD (chronic obstructive pulmonary disease) Coronary artery disease GERD (gastroesophageal reflux disease) Hilar mass Hypertension Past heart attack Small cell lung cancer Small cell lung cancer, right middle lobe Tuberculous tracheobronchial adenopathy Surgical History (Updated 02/04/22 @ 12:00 by Montrell Graff MD) History of endovascular stent graft for abdominal aortic aneurysm (AAA) History of heart artery stent S/P rotator cuff repair Family History Other CAD (coronary artery disease) Cancer Diabetes Hyperlipidemia Hypertension Lung disease Psychiatric illness Stroke Denies family history of Clotting disorder Dementia Chronic kidney disease (CKD) Suicide Anesthesia complication Bleeding disorder Social History Smoking and tobacco status: former smoker (smoked x 50+ years) Alcohol intake: never Vitals/I&O/Wt Last Vital Signs Temp 97.7 F 02/04/22 09:22 Pulse 66 02/04/22 10:45 Resp 20 H 02/04/22 10:45 BP 136/80 02/04/22 10:45 Pulse Ox 93 02/04/22 10:45 O2 Del Method 02/04/22 09:22 O2 Flow Rate 2 02/04/22 09:22 Weight last 48 hrs Weight 95.799 kg Physical Exam Narrative: General exam no distress, conversant. I did a bedside swallow with a small amount of water and he did well. HEENT: Atraumatic normocephalic. Pupils equally round. Oropharynx clear. Neck is supple no lymphadenopathy or thyromegaly Cardiovascular regular rate and rhythm without murmur, no S3 or S4 Lungs clear no wheezing or crackles Abdomen is soft with positive bowel sounds. No obvious organomegaly. Diastases recti is noted. exams deferred Extremities no cyanosis clubbing or edema, cap refill brisk Skin no rash Neuro no facial droop currently. Excellent strength left upper and left lower extremity. Some issues with dexterity in his left hand. No facial droop or slurring of speech. I did not repeat a full NIHSS score at this exam although it is evident he is improved from the emergency department physician's scoring Data 02/04/22 09:30 02/04/22 09:30 Other Labs: INR is normal Calcium 10.2 LFTs normal Albumin 3.9 Head and neck CTA demonstrated mild atherosclerotic disease without significant stenosis or acute occlusion right paratracheal mass noted. Head CT mild to moderate small vessel disease changes but no hemorrhage EKG demonstrates sinus rhythm, left axis deviation, left anterior fascicular block and no obvious acute changes. Previous recent CT chest demonstrated a large right hilar and suprahilar mass with compression of SVC compatible with neoplasm, mediastinal invasion with bulky lymph nodes and some noncalcified subpleural nodules A&P Assessment and plan (1) Cerebrovascular accident: Status post tPA Permissive hypertension, not to treat unless blood pressure greater than 180/105 No antiplatelet medication currently, will initiate 24 hours following tPA Repeat CT head tomorrow Check echocardiogram Therapy evaluations Initiate statin. We will clarify why this is listed as an allergy. With his history of hypertension, being on metoprolol and not wanting withdrawal and tachycardia, but wanting to allow for some permissive hypertension initiate half dose at 25 mg twice daily (2) Small cell lung cancer: Newly diagnosed small cell lung cancer. Follow-up with oncology as an outpatient (3) COPD (chronic obstructive pulmonary disease): Budesonide DuoNeb as needed (4) Coronary artery disease: Continue beta-abraham, lower dose considering CVA. Initiate aspirin 24 hours after tPA dose Initiate statin, clarify allergy prior to doing so. Plan Multiple other medical problems as outlined in past medical history Full code SCDs, anticoagulation contraindicated in first 24 hours following tPA. Attestations Medical Necessity Statement*: Will need greater than 2 midnight stay for evaluation and treatment of stroke, status post tPA treatment. Coding Level of Care Code Acute Hand Collator for Gigi Roverto Diagnoses Cerebrovascular accident I63.9 Small cell lung cancer C34.90 COPD (chronic obstructive pulmonary disease) J44.9 Coronary artery disease I25.10
[2022-02-04 12:27] LABS: Add Urine Microscopic? NO; Charge for UA Resulting for Rev
[2022-02-04 12:30] LABS: Bilirubin Urine Neg (Negative); Blood Urine Neg (Negative); Glucose Urine UA Norm (Normal); Ketones Urine Negative (Negative); Leukocyte Esterase Urine Negative (Negative); Nitrate Urine Negative (Negative); Protein Urine Neg (Negative); Urine Appearance Clear (CLEAR); Urine Color Yellow (Yellow); Urobilinogen Urine Norm (Negative); pH Urine 6 (5-7)
[2022-02-04 12:37] LABS: Amphetamines Screen Urine Negative (Negative); Barbiturates Screen Urine Negative (Negative); Benzodiazepines Screen Urine Negative (Negative); Cocaine Screen Urine Negative (Negative); Opiate Screen Urine Negative (Negative); PCP Screen Urine Negative (Negative); THC Screen Urine Negative (Negative)
[2022-02-04] MEDS: sodium chloride 0.9% 1,000 ML 75 ML IV (13:25)
[2022-02-04] MEDS: ondansetron 2 mg/ML SDV 2 mL 4 MG IVP ×2 (13:26→17:26)
--- NOTE | 2022-02-04 13:34 | PC.NURSE ---
Patient arrived to ICU from ER at 1300. All v/s are WNL. Patient is able to move all limbs.
--- NOTE | 2022-02-04 16:54 | CTR_ITS ---
PROCEDURE INFORMATION: Exam: CTA Abdomen and Pelvis Without And With Contrast Exam date and time: 02/04/2022 5:05 PM Age: 66 years old Clinical indication: Prior surgery; Surgery date: 6+ months; Surgery type: Endograft; Patient HX: Acute abdominal pain today; Additional info: Nausea abd pain, endograft protocol TECHNIQUE: Imaging protocol: Computed tomographic angiography of the abdomen and pelvis without and with contrast. 3D rendering (Not supervised by radiologist): MIP and/or 3D reconstructed images were created by the technologist. Radiation optimization: All CT scans at this facility use at least one of these dose optimization techniques: automated exposure control; mA and/or kV adjustment per patient size (includes targeted exams where dose is matched to clinical indication); or iterative reconstruction. Contrast material: OMNIPAQUE 350; Contrast volume: 100 ml; Contrast route: INTRAVENOUS (IV); COMPARISON: CT chest wo con [id number] 01/04/2022 1:24 PM RADIATION DOSE METRICS: Total DLP (mGy-cm): 2390.77 FINDINGS: Lungs: Continued large right hilar and subcarinal mass most consistent with lung carcinoma versus other neoplasm. Interval mild right basilar atelectasis and/or pneumonia. Heart: Stable severe calcified coronary artery disease. Aorta: Calcification of the abdominal aorta and/or iliac arteries consistent with atherosclerotic vessel disease. 5.8 cm saccular infrarenal abdominal aortic aneurysm without rupture. Patent aortic bilateral iliac artery endovascular stent. 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 Renal arteries: No occlusion or significant stenosis. Right iliac arteries: No occlusion or significant stenosis. Left iliac arteries: No occlusion or significant stenosis. Liver: No mass. Gallbladder and bile ducts: Unremarkable. No calcified stones. No ductal dilation. Pancreas: Unremarkable. No mass. No ductal dilation. Spleen: Calcified splenic granulomas. Adrenal glands: Unremarkable. No mass. Kidneys and ureters: Acute infarct in the medial inferior 25% of the left kidney which can create pain, nausea, fever and leukocytosis. Stomach and bowel: Severe descending and/or sigmoid colon diverticulosis without diverticulitis. Appendix: No evidence of appendicitis. Intraperitoneal space: Unremarkable. No free air. No significant fluid collection. Lymph nodes: Stable right calcified hilar nodes and/or mediastinal nodes and/or lung nodules consistent with old granulomatous disease. Urinary bladder: Uniform urinary bladder wall thickening consistent with partial collapse of the urinary bladder, cystitis or chronic outlet obstruction. Reproductive: Nonspecific prostate calcifications. Bones/joints: Small endovascular leak identified with contrast enhanced blood extending superiorly from the anterior margin of the left common iliac branch of the endovascular stent. Axial series 7, images 142-143. Soft tissues: On the images without contrast, there is residual contrast in the collecting system from recent CTA head and neck which was performed 7 hours prior to this exam. CT/CT angio abdomen pelvis [id number] IMPRESSION: 1. Acute infarct in the medial inferior 25% of the left kidney which can create pain, nausea, fever and leukocytosis. 2. Continued large right hilar and subcarinal mass most consistent with lung carcinoma versus other neoplasm. 3. Interval mild right basilar atelectasis and/or pneumonia. 4. 5.8 cm saccular infrarenal abdominal aortic aneurysm without rupture. 5. Patent aortic bilateral iliac artery endovascular stent. 6. 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 7. Small endovascular leak identified with contrast enhanced blood extending superiorly from the anterior margin of the left common iliac branch of the endovascular stent. Axial series 7, images 142-143. 8. Uniform urinary bladder wall thickening consistent with partial collapse of the urinary bladder, cystitis or chronic outlet obstruction.
--- NOTE | 2022-02-04 17:05 | PC.NURSE ---
Patient complaining of left lower quadrant pain, pain level 6/10 along with vomiting. Zofran given earlier in the shift see MAR for record and patient continues to vomit. Notified Dr. Graff and he gave orders to obtain CT of abd and pelvis with contrast to monitor Aorta due to previous noted AAA repair with a leak. Patient received TPA in ER due to stroke and complete left side placidness. Patient transported to CT at 1705.
[2022-02-04] MEDS: allopurinol 100 mg Tablet PO (17:24)
[2022-02-04] MEDS: morphine 4 mg/mL SDV 1 mL 2 MG IVP ×2 (17:27→20:00)
[2022-02-04] MEDS: pantoprazole 40 mg SDV IVP (18:03)
[2022-02-04] MEDS: metoprolol tartrate 25 mg Tablet PO (20:01)
[2022-02-04] MEDS: atorvastatin 40 mg Tablet PO (20:01)
[2022-02-04] MEDS: gabapentin 300 mg Capsule PO (20:01)
[2022-02-04] MEDS: budesonide 0.5 mg/2 mL Neb INHALATION (20:24)
[2022-02-04] MEDS: ipratropium-albuterol 3 mL Neb INHALATION (20:24)
[2022-02-05] VITALS (21 sets, daily range): BP systolic 120–155; BP diastolic 78–98; PULSE 74–104; RESP 0–27; TEMP 36.7–36.8; O2SAT 90–95
[2022-02-05] MEDS: morphine 4 mg/mL SDV 1 mL 2 MG IVP (02:02)
[2022-02-05] MEDS: sodium chloride 0.9% 1,000 ML 75 ML IV ×2 (02:03→17:19)
[2022-02-05 03:41] LABS: Basophils % 0.4 %; Eosinophils % 0.3 %; Hematocrit 37.5 % (42.0-52.0); Hemoglobin 12.3 g/dL (11.7-16.6); Lymphocytes # 1.8 10^3/uL (0.8-4.8); Lymphocytes % 17.2 %; Mean Corpuscular HGB Conc 32.8 g/dL (30.0-36.0); Mean Corpuscular Hemoglobin 28.3 pg (28.0-34.0); Mean Corpuscular Volume 86.4 fl (80-94); Monocytes # 1.3 10^3/uL (0.2-0.9); Monocytes % 11.9 %; Neutrophils # 7.42 10^3/uL (1.8-7.7); Neutrophils % 69.7 %; Nucleated Red Blood Cells % 0 %; Platelet Count 195 10^3/cmm (130-400); Red Blood Count 4.34 10^6/uL (4.1-5.3); White Blood Count 10.6 10^3/uL (4.0-10.0)
[2022-02-05 03:43] LABS: Estmated Average Glucose 105; Hemoglobin A1C 5.3 % (4.0-6.0)
[2022-02-05 03:49] LABS: Anion Gap 16.9 (5-19); Blood Urea Nitrogen 16 mg/dL (8-23); Calcium 9.8 mg/dL (8.5-10.5); Carbon Dioxide 24 mmol/L (22-29); Chloride 99 mmol/L (98-107); Chol HDL Ratio 3.39 mg/dL (1.0-5.00); Cholesterol 156 mg/dL (0-200); Glomerular Filtration Rate 96.4 mL/min (90-130); Glucose 121 mg/dL (65-115); HDL Cholesterol 46 mg/dL (60-100); LDL Cholesterol Calculated 92 mg/dL (50-129); Osmolality Calculated 284 mOsm/kg (285-295); Potassium 3.9 mmol/L (3.5-5.1); Sodium 136 mmol/L (136-145); Triglycerides 91 mg/dL (0-150)
[2022-02-05] MEDS: pantoprazole 40 mg SDV IVP ×2 (05:34→17:18)
--- NOTE | 2022-02-05 06:00 | USCV_ITS ---
Karl Martinez Age: 66 Gender: M : 1955 Exam Date: 02/05/2022 01:19 Ordering Phys: Montrell Graff MD Technologist: CHASE [place] [facility] [place]: murmur BP: 147 / 96 HR: 84 Rhythm: Atrial fibrillation Technical Quality: Adequate MEASUREMENTS (Male / Female) Normal Values 2D ECHO LV Diastolic Diameter PLAX 3.5 cm 4.2 - 5.9 / 3.9 - 5.3 cm LV Systolic Diameter PLAX 2.4 cm IVS Diastolic Thickness 1.8 cm 0.6 - 1.0 / 0.6 - 0.9 cm IVS Systolic Thickness 1.8 cm LVPW Diastolic Thickness 1.5 cm 0.6 - 1.0 / 0.6 - 0.9 cm LVPW Systolic Thickness 1.8 cm LVOT Diameter 2.1 cm LV Ejection Fraction 2D Teich 62.7 % LV Ejection Fraction MOD 2C 67.6 % LV Ejection Fraction 2C AL 68.3 % LA Diameter 4.6 cm LA Width 3.5 cm LA Height 5.0 cm RA Width 2.1 cm RA Height 5.1 cm Aorta at Sinotubular Diameter 3.6 cm IVC Diameter 1.8 cm M-MODE Aortic Annulus Diameter 3.6 cm LA Ao Ratio MM 1.3 MV E Point Septal Separation 0.0 cm DOPPLER AV Peak Velocity 115.1 cm/s LVOT Peak Velocity 118.0 cm/s AV Area Cont Eq vti 3.3 cm squared AV Area Cont Eq pk 3.7 cm squared MV Peak Velocity 111.4 cm/s MV Area PHT 4.6 cm squared Mitral E to A Ratio 0.7 MV E' Velocity 35.3 cm/s Mitral E to MV E' Ratio 7.5 Mitral E to LV E' Lateral Ratio 7.6 Mitral E to LV E' Septal Ratio 7.5 TV Peak E Velocity 112.1 cm/s PV Peak Velocity 121.3 cm/s RV Acceleration Time 0.1 s RV Ejection Time 0.3 s RV AcT/ET 0.4 FINDINGS Left Ventricle Normal left ventricular size and systolic function, EF 64 %. Mild left ventricular hypertrophy. No regional wall motion abnormalities. Right Ventricle The right ventricle is normal in size and function. Right Atrium The right atrium is normal in size. Left Atrium The left atrium is normal in size. Mitral Valve Mild mitral annular calcification. Aortic Valve minimally thickened aortic valve. Possible bicuspid aortic valve Tricuspid Valve No gross abnormalities noted Pulmonic Valve Trace pulmonary valve regurgitation. Pericardium No pericardial effusion. Aorta Normal ascending aorta dimension. IVC The inferior vena cava appears normal. CONCLUSIONS Normal left ventricular size and systolic function, EF 64 %. Mild left ventricular hypertrophy. No regional wall motion abnormalities. Mild mitral annular calcification. Possible bicuspid aortic valve Trace pulmonary valve regurgitation. There is no pericardial effusion. There are no intracardiac masses. No similar previous studies are available for comparison Dr Asuncion Benjamin MD FACC (Electronically Signed) Final Date: 12 February 2022 21:08 S
[2022-02-05] MEDS: metoprolol tartrate 25 mg Tablet PO ×2 (08:09→20:16)
[2022-02-05] MEDS: allopurinol 100 mg Tablet PO ×2 (08:09→17:19)
--- NOTE | 2022-02-05 09:00 | CT_ITS ---
WS: [id number] CT HEAD NONCONTRAST HISTORY: Follow-up tPA TECHNIQUE: Contiguous axial imaging performed through the brain in 2.5 mm imaging. Bone and soft tiss ue windows. Sagittal and coronal reformats reviewed. All CT scans at [facility] use at least one of these dose optimization techniques: automated exposure control; mA and/or kV adjustment per pa tient size (includes targeted exams where dose is matched to clinical indication); or iterative recon struction. DLP: 1159.95 mGy.cm COMPARISON: 02/04/2022 No acute intracranial hemorrhage, midline shift or mass effect. Mild atrophy and small vessel ischemic disease. No interval hemorrhage. No new infarct or sulcal effa cement. Ventricles: Normal size with no hydrocephalus. No inferior displacement of the cerebellar tonsils. Paranasal sinuses: Mild mucoperiosteal thickening in the ethmoid air cells. No air-fluid levels. Mastoid air cells: Well pneumatized. Calvarium and scalp: Skull is intact with no soft tissue edema or swelling. CT/CT head wo con* [id number] IMPRESSION: 1. No intracranial hemorrhage. No mass effect or new infarct. 2. Mild atrophy and small vessel ischemic disease.
[2022-02-05] MEDS: budesonide 0.5 mg/2 mL Neb INHALATION (09:50)
[2022-02-05] MEDS: ipratropium-albuterol 3 mL Neb INHALATION (09:50)
--- NOTE | 2022-02-05 10:12 | P.PN_ITS ---
Subjective Subjective: Karl reports he feels better. No significant abdominal pain or nausea currently which she had yesterday prompting CT scan demonstrating renal infarct. Feels like he has back to normal neurologically. Medications: Reviewed: Yes Vitals/I&O/Wt Last Vital Signs Temp 98.0 F 02/05/22 04:00 Pulse 78 02/05/22 09:40 Resp 16 02/05/22 09:40 BP 139/83 02/05/22 09:00 Pulse Ox 94 02/05/22 09:40 O2 Del Method 02/05/22 09:40 O2 Flow Rate 2 02/05/22 09:40 02/04/22 02/05/22 02/05/22 22:59 06:59 14:59 Intake Total 240 / 326.9 1007.5 / 1334.4 360 / 360 Output Total 400 / 400 425 / 825 Balance -160 / -73.1 582.5 / 509.4 360 / 360 Weight last 48 hrs Weight 94 kg Weight 95.799 kg Physical Exam Narrative: General exam no distress, Neck is supple no lymphadenopathy or thyromegaly Cardiovascular regular rate and rhythm without murmur, no S3 or S4 Lungs clear no wheezing or crackles Abdomen is soft with positive bowel sounds. No obvious organomegaly. No pain this morning Extremities no cyanosis clubbing or edema, cap refill brisk Skin no rash Neuro appears neurologically intact with the exception of some left hand clumsiness but I did not get up and ambulate him yet. Data 02/05/22 02:24 02/05/22 02:24 A&P Assessment and plan (1) Cerebrovascular accident: Status post tPA 02/04 Permissive hypertension, not to treat unless blood pressure greater than 180/105 No antiplatelet medication currently, will initiate 24 hours following tPA. As anticoagulation is going to be added as well aspirin only 81 mg daily. [address] head CT, echocardiogram Therapy evaluations today Continue statin. With his history of hypertension, being on metoprolol and not wanting withdrawal and tachycardia, but wanting to allow for some permissive hypertension initiate half dose at 25 mg twice daily As a renal infarct was identified yesterday on a CT scan abdomen and pelvis, and stroke was noted yesterday as well consideration for anticoagulation. I discussed briefly with neurology and agree that anticoagulation is currently indicated. Plan on Xarelto to initiate tonight after discussing risks and benefits with the family. RADHA as outpatient, event monitor as outpatient. No arrhythmias detected on telemetry as of yet. (2) Small cell lung cancer: Newly diagnosed small cell lung cancer. Follow-up with oncology as an outpatient (3) COPD (chronic obstructive pulmonary disease): Budesonide DuoNeb as needed (4) Coronary artery disease: Continue beta-abraham, lower dose considering CVA. Initiate aspirin 24 hours after tPA dose. 81 mg Continue statin (5) Renal infarct: Identified on CT scan. Initiate anticoagulation prior to discharge. See comments under CVA. Plan Multiple other medical problems as outlined in past medical history Full code SCDs, anticoagulation contraindicated in first 24 hours following tPA. Attestations Medical Necessity Statement*: Needs continued hospital stay for close monitoring following tPA administration, initiation of Xarelto, therapy evaluations in this patient with multiple comorbidities and risks following CVA with renal infarct. Coding Level of Care Code Acute Switch Repairer for Preeti Layne Diagnoses Cerebrovascular accident I63.9 Small cell lung cancer C34.90 COPD (chronic obstructive pulmonary disease) J44.9 Coronary artery disease I25.10 Renal infarct N28.0
--- NOTE | 2022-02-05 14:54 | PC.NURSE ---
Patient transferred up to [place] at 1430.
[2022-02-05] MEDS: atorvastatin 40 mg Tablet PO (20:16)
[2022-02-05] MEDS: rivaroxaban 10 mg Tablet 20 MG PO (20:16)
[2022-02-05] MEDS: gabapentin 300 mg Capsule PO (20:16)
[2022-02-06 03:40] VITALS: BP 131/81; PULSE 99; RESP 16; TEMP 36.8; O2SAT 94
[2022-02-06 05:05] LABS: Basophils % 0.4 %; Eosinophils # 0.1 10^3/uL (0.0-0.8); Eosinophils % 0.7 %; Hematocrit 36.1 % (42.0-52.0); Hemoglobin 11.8 g/dL (11.7-16.6); Lymphocytes # 2.1 10^3/uL (0.8-4.8); Lymphocytes % 19.3 %; Mean Corpuscular HGB Conc 32.7 g/dL (30.0-36.0); Mean Corpuscular Hemoglobin 28.2 pg (28.0-34.0); Mean Corpuscular Volume 86.2 fl (80-94); Mean Platelet Volume 12.1 fL (7.4-10.4); Monocytes # 1.5 10^3/uL (0.2-0.9); Monocytes % 13.6 %; Neutrophils # 7.19 10^3/uL (1.8-7.7); Neutrophils % 65.6 %; Nucleated Red Blood Cells % 0 %; Platelet Count 171 10^3/cmm (130-400); Red Blood Count 4.19 10^6/uL (4.1-5.3)
[2022-02-06 05:26] LABS: Anion Gap 16.1 (5-19); Blood Urea Nitrogen 10 mg/dL (8-23); Calcium 9.4 mg/dL (8.5-10.5); Carbon Dioxide 25 mmol/L (22-29); Chloride 99 mmol/L (98-107); Glomerular Filtration Rate 96.4 mL/min (90-130); Glucose 96 mg/dL (65-115); Osmolality Calculated 281 mOsm/kg (285-295); Potassium 4.1 mmol/L (3.5-5.1); Sodium 136 mmol/L (136-145)
[2022-02-06] MEDS: pantoprazole 40 mg SDV IVP (05:47)
[2022-02-06 06:00] VITALS: PULSE 96
[2022-02-06 08:00] VITALS: BP 116/73; PULSE 89; RESP 18; TEMP 36.8; O2SAT 91
--- NOTE | 2022-02-06 08:09 | P.CONIM_ITS ---
Providers/Reason For Consult Consulting Physician/Specialty*: SHERIE Benjamin MD/cardiology Reason for Consult*: Patient with CVA/Eliquis for RADHA to evaluate for any cardiac source of embolization Requesting Physician: Dr. Graff/Dr. Hicks Attending Physician: Montrell Graff MD Primary Care Provider: EUSEBIO Sanchez History of Present Illness History of Present Illness Karl Martinez is a 66 year old male, is admitted to hospital with features of left-sided CVA. He was given tPA. He is almost back to his baseline. CT of his neck revealed no unstable lesions or any significant carotid artery stenosis. Cardiology consult is requested mainly to perform a RADHA to evaluate for any cardiac source of embolization. This patient is known to have atherosclerotic heart diseas and had PCI approximately 10 years ago. He also had aortic stent graft placement 2 weeks ago?. He moved to the [facility] recently from [place]. Is diagnosed with small cell carcinoma of the lung and had a Port-A-Cath placement on the left side 2 weeks ago. On the day of hospital admission, he was getting ready for a chemoradiation treatment. According the patient, history of Port-A-Cath was getting flashed for the IV infusion. While he was undergoing this, all of a sudden, he started getting weak on his left side with slurring of speech. The stroke team was alerted and he was evaluated in the emergency room. Subsequently he received the tPA. He has not had any complications with the tPA. Currently he is almost back to his baseline. He also developed features of renal infarct. A RADHA was requested to evaluate for any cardiac source of embolization. Patient also is scheduled for an event monitor as an outpatient. This patient has no previous history for any cardiac arrhythmia. No history for previous CVA. He has a history of high blood pressure, dyslipidemia and abdominal aortic aneurysm. Patient is in the process of being discharged home today Review of Systems Narrative: CONSTITUTIONAL: No fever or chills. EYES: No blurring of vision or other visual disturbances lately. ENT: No hoarseness of voice, auditory disturbances or sore throat. CARDIOVASCULAR: As mentioned above. RESPIRATORY: No significant cough. GASTROINTESTINAL: No hematemesis or melena. GENITOURINARY: Patient also developed renal infarct INTEGUMENTARY: No skin rashes or history of skin cancer. NEURO: Left-sided CVA as mentioned above. PSYCHIATRIC: No history of psychosis or major depression. HEMATOLOGIC: No bleeding disorders or significant anemia. ENDOCRINE: No history of polyuria or polydipsia. MUSCULOSKELETAL: No recent joint pain or swelling. ALLERGY/IMMUNOLOGY: As mentioned above. Medications/Allergies Home Medications Medication Instructions Recorded Confirmed Last Taken Type albuterol sulfate 90 mcg/actuation 2 puff inhalation Q6H PRN 12/28/21 02/04/22 01/07/22 Rx aerosol inhaler shortness of breath or wheezing #8.5 grams nebulizers #1 ea 01/02/22 02/04/22 01/07/22 Rx aspirin 81 mg tablet,delayed 81 mg PO QAM 01/07/22 02/04/22 02/04/22 History release metoprolol tartrate 50 mg tablet 50 mg PO BID 01/07/22 02/04/22 02/04/22 History omeprazole 20 mg capsule,delayed 20 mg PO QAM 01/07/22 02/04/22 02/04/22 History release gabapentin 300 mg capsule 300 mg PO BEDTIME 01/21/22 02/04/22 02/03/22 History lorazepam 0.5 mg tablet (Ativan) 0.5 mg PO Q8H PRN anxiety #60 tabs 01/21/22 02/04/22 Unknown Rx oxycodone-acetaminophen 5 mg-325 1 - 2 tab PO .Q4-6H PRN pain 30 01/21/22 02/04/22 02/03/22 Rx mg tablet (Percocet) days #60 tabs lorazepam 1 mg tablet 0.5 - 1 mg PO Q6H PRN Severe 01/31/22 02/04/22 Unknown Rx Nausea #30 tabs prochlorperazine maleate 10 mg 10 mg PO Q4H PRN Mild Nausea #30 01/31/22 02/04/22 Unknown Rx tablet (Compazine) tabs allopurinol 100 mg tablet 100 mg PO BID #60 tabs 02/01/22 02/04/22 02/04/22 Rx ascorbic acid (vitamin C) 1,000 mg 1,000 mg PO QAM 02/04/22 02/04/22 02/04/22 History tablet (Vitamin C) cholecalciferol (vitamin D3) 25 25 mcg PO QAM 02/04/22 02/04/22 02/04/22 History mcg (1,000 unit) tablet (Vitamin D3) cyanocobalamin (vitamin B-12) 1,000 mcg PO QAM 02/04/22 02/04/22 02/04/22 History 1,000 mcg tablet (Vitamin B-12) ipratropium 0.5 mg-albuterol 3 mg 3 ml inhalation QID PRN unknown 02/04/22 02/04/22 Unknown History (2.5 mg base)/3 mL nebulization soln multivitamin 1 tab PO QAM 02/04/22 02/04/22 02/04/22 History nitroglycerin 0.4 mg sublingual 0.4 mg sublingual Q5M PRN Chest 02/04/22 02/04/22 Unknown History tablet (Nitrostat) Pain umeclidinium 62.5 mcg-vilanterol 1 inh inhalation QAM 02/04/22 02/04/22 02/04/22 History 25 mcg/actuation powdr for inhalation (Anoro Ellipta) Allergies Allergy/AdvReac Type Severity Reaction Status Date / Time [id number] Reductase Allergy Unknown Verified 02/04/22 10:26 Inhibitor Current Medications Generic Name Dose Route Start Last Admin Trade Name Freq PRN Reason Stop Dose Admin Albuterol/Ipratropium 3 ml 02/04/22 12:22 02/05/22 09:50 Ipratropium-Albuterol 3 Ml Neb INHALATION 3 ml Q4H PRN Administration SHORTNESS OF BREATH Allopurinol 100 mg 02/04/22 18:00 02/05/22 17:19 Allopurinol 100 Mg Tablet PO 100 mg BID DESTINY Administration Atorvastatin Calcium 40 mg 02/04/22 21:00 02/05/22 20:16 Atorvastatin 40 Mg Tablet PO 40 mg BEDTIME DESTINY Administration Budesonide 0.5 mg 02/04/22 20:00 02/05/22 23:07 Budesonide 0.5 Mg/2 Ml Neb INHALATION Not Given BID.RESPIRATORY DESTINY Gabapentin 300 mg 02/04/22 21:00 02/05/22 20:16 Gabapentin 300 Mg Capsule PO 300 mg BEDTIME DESTINY Administration Sodium Chloride 1,000 mls @ 75 mls/hr 02/04/22 12:03 02/05/22 17:19 Sodium Chloride 0.9% IV 75 mls/hr .[id number] DESTINY Administration Metoprolol Tartrate 25 mg 02/04/22 21:00 02/05/22 20:16 Metoprolol Tartrate 25 Mg Tablet PO 25 mg BID@0900,2100 DESTINY Administration Morphine Sulfate 2 mg 02/04/22 19:46 02/05/22 02:02 Morphine 4 Mg/Ml Sdv 1 Ml IVP 2 mg Q3H PRN Administration SEVERE PAIN Ondansetron HCl 4 mg 02/04/22 13:09 02/04/22 17:26 Ondansetron 2 Mg/Ml Sdv 2 Ml IVP 4 mg Q6H PRN Administration NAUSEA AND VOMITING Pantoprazole Sodium 40 mg 02/04/22 17:45 02/06/22 05:47 Pantoprazole 40 Mg Sdv IVP 40 mg Q12H DESTINY Administration Rivaroxaban 20 mg 02/05/22 21:00 02/05/22 20:16 Rivaroxaban 10 Mg Tablet PO 20 mg BEDTIME DESTINY Administration PFSH Acute PFSH: Medical History Abdominal aortic aneurysm Carpal tunnel syndrome on both sides Chronic back pain Congenital umbilical hernia COPD (chronic obstructive pulmonary disease) Coronary artery disease GERD (gastroesophageal reflux disease) Hilar mass Hypertension Past heart attack Small cell lung cancer Small cell lung cancer, right middle lobe Tuberculous tracheobronchial adenopathy Surgical History History of endovascular stent graft for abdominal aortic aneurysm (AAA) History of heart artery stent S/P rotator cuff repair Family History Other CAD (coronary artery disease) Cancer Diabetes Hyperlipidemia Hypertension Lung disease Psychiatric illness Stroke Denies family history of Clotting disorder Dementia Chronic kidney disease (CKD) Suicide Anesthesia complication Bleeding disorder Social History Smoking and tobacco status: former smoker (smoked x 50+ years) Alcohol intake: never Vitals/I&O/Wt Last Vital Signs Temp 98.3 F 02/06/22 03:40 Pulse 96 02/06/22 06:00 Resp 16 02/06/22 03:40 BP 131/81 02/06/22 03:40 Pulse Ox 94 02/06/22 03:40 O2 Del Method 02/06/22 03:40 O2 Flow Rate 2 02/05/22 20:00 02/05/22 02/06/22 02/06/22 22:59 06:59 14:59 Intake Total 1240 / 1600 / 1959 Balance 1240 / 1600 / 1959 Weight last 48 hrs Weight 208 lb Weight 207 lb 3.752 oz Weight 211 lb 3.2 oz Physical Exam Narrative: GENERAL: The patient is alert and oriented times three. Not in any acute distress. HEENT: No significant pallor, icterus or lymphadenopathy.Oral cavity: There are no mucous membrane lesions. NECK: Trachea appears to be central. No masses noted. No JVD or thyromegaly appreciated. RESPIRATORY: Chest is symmetrical. No intercostals muscle retraction or any accessory muscle activation. There is no chest wall tenderness. Breath sounds are heard bilaterally. No rales or rhonchi heard. No evidence of any consolidation. BREASTS: Deferred. HEART: The heart sounds are normal. No S3 or S4. No significant murmurs. No pericardial rub ABDOMEN: No vessel pulsations or distention. No tenderness. No organomegaly appreciated. Bowel sounds are normally heard. : Deferred. RECTAL: Deferred. LYMPHATIC: No lymphadenopathy noted in the neck. EXTREMITIES: No edema or cyanosis. No clubbing. MUSCULOSKELETAL: No acute joint deformities or swelling SKIN: There are no significant rashes or ecchymosis NEUROPSYCHIATRIC: The patient is alert and oriented x3. Appears to be in a good mood. No tremors or rigidity noted. Data 02/06/22 04:30 02/06/22 04:30 Micro: Laboratory Last Values WBC 11.0 10^3/uL (4.0-10.0) H 02/06/22 04:30 RBC 4.19 10^6/uL (4.1-5.3) 02/06/22 04:30 Hgb 11.8 g/dL (11.7-16.6) 02/06/22 04:30 Hct 36.1 % (42.0-52.0) L 02/06/22 04:30 MCV 86.2 fl (80-94) 02/06/22 04:30 MCH 28.2 pg (28.0-34.0) 02/06/22 04:30 MCHC 32.7 g/dL (30.0-36.0) 02/06/22 04:30 RDW 15.0 % (12.1-15.1) 02/06/22 04:30 Plt Count 171 10^3/cmm (130-400) 02/06/22 04:30 MPV 12.1 fL (7.4-10.4) H 02/06/22 04:30 Neut % (Auto) 65.6 % 02/06/22 04:30 Lymph % (Auto) 19.3 % 02/06/22 04:30 [place] % (Auto) 13.6 % 02/06/22 04:30 Eos % (Auto) 0.7 % 02/06/22 04:30 Baso % (Auto) 0.4 % 02/06/22 04:30 Neut # (Auto) 7.19 10^3/uL (1.8-7.7) 02/06/22 04:30 Lymph # (Auto) 2.1 10^3/uL (0.8-4.8) 02/06/22 04:30 [place] # (Auto) 1.5 10^3/uL (0.2-0.9) H 02/06/22 04:30 Eos # (Auto) 0.1 10^3/uL (0.0-0.8) 02/06/22 04:30 Baso # (Auto) 0.0 10^3/uL (0.0-0.1) 02/06/22 04:30 Nucleated RBC % (auto) 0 % 02/06/22 04:30 Nucleated RBCs # 0.0 /100WBC 02/06/22 04:30 PT 13.80 SECONDS (12.1-14.9) 02/04/22 09:30 INR 1.03 (0.8-1.2) 02/04/22 09:30 APTT 33.6 SECONDS (23.9-36.7) 02/04/22 09:30 Sodium 136 mmol/L (136-145) 02/06/22 04:30 Potassium 4.1 mmol/L (3.5-5.1) 02/06/22 04:30 Chloride 99 mmol/L (98-107) 02/06/22 04:30 Carbon Dioxide 25 mmol/L (22-29) 02/06/22 04:30 Anion Gap 16.1 (5-19) 02/06/22 04:30 BUN 10 mg/dL (8-23) 02/06/22 04:30 Creatinine 0.8 mg/dL (0.7-1.2) 02/06/22 04:30 GFR Calculation 96.4 mL/min (90-130) 02/06/22 04:30 Glucose 96 mg/dL (65-115) 02/06/22 04:30 Estimat Average Glucose 105 02/05/22 02:24 Hemoglobin A1c 5.3 % (4.0-6.0) 02/05/22 02:24 Calculated Osmolality 281 mOsm/kg (285-295) L 02/06/22 04:30 Calcium 9.4 mg/dL (8.5-10.5) 02/06/22 04:30 Total Bilirubin 0.7 mg/dL (0.15-1.2) 02/04/22 09:30 AST 23 U/L (0-40) 02/04/22 09:30 ALT 14 U/L (0-41) 02/04/22 09:30 Alkaline Phosphatase 109 U/L (40-130) 02/04/22 09:30 Total Protein 7.7 g/dL (6.6-8.7) 02/04/22 09:30 Albumin 3.9 g/dL (3.5-5.2) 02/04/22 09:30 Globulin 3.8 g/dL (1.3-4.6) 02/04/22 09:30 Triglycerides 91 mg/dL (0-150) 02/05/22 02:24 Cholesterol 156 mg/dL (0-200) 02/05/22 02:24 LDL Cholesterol, Calc 92 mg/dL (50-129) 02/05/22 02:24 HDL Cholesterol 46 mg/dL (60-100) L 02/05/22 02:24 LDL/HDL Ratio 2.00 RATIO (0.00-3.22) 02/05/22 02:24 Cholesterol/HDL Ratio 3.39 mg/dL (1.0-5.00) 02/05/22 02:24 Urine Color Yellow (Yellow) 02/04/22 11:50 Urine Appearance Clear (CLEAR) 02/04/22 11:50 Urine pH 6 (5-7) 02/04/22 11:50 Ur Specific [place] 1.010 (1.005-1.030) 02/04/22 11:50 Urine Protein Neg (Negative) 02/04/22 11:50 Urine Glucose (UA) Norm (Normal) 02/04/22 11:50 Urine Ketones Negative (Negative) 02/04/22 11:50 Urine Blood Neg (Negative) 02/04/22 11:50 Urine Nitrate Negative (Negative) 02/04/22 11:50 Urine Bilirubin Neg (Negative) 02/04/22 11:50 Urine Urobilinogen Norm mg/dL (Negative) 02/04/22 11:50 Ur Leukocyte Esterase Negative (Negative) 02/04/22 11:50 Urine Opiates Screen Negative ng/mL (Negative) 02/04/22 11:50 Ur Barbiturates Screen Negative ng/mL (Negative) 02/04/22 11:50 Ur Phencyclidine Scrn Negative ng/mL (Negative) 02/04/22 11:50 Ur Amphetamines Screen Negative ng/mL (Negative) 02/04/22 11:50 U Benzodiazepines Scrn Negative ng/mL (Negative) 02/04/22 11:50 Urine Cocaine Screen Negative ng/mL (Negative) 02/04/22 11:50 U Marijuana (THC) Screen Negative ng/mL (Negative) 02/04/22 11:50 EKG 1: My Interpretation: No sinus rhythm with a heart rate of 65 bpm. Left anterior fascicular block first-degree AV block. Some nonspecific IVCD EKG computer-generated impression: Head/Neck CTA 02/04/22 09:46 IMPRESSION: 1. Mild atherosclerotic disease. No significant stenosis or acute occlusion. 2. No occlusion or aneurysm within the [place]. 3. Known large RIGHT paratracheal mass and pulmonary nodules. Abdomen/Pelvis CTA 02/04/22 16:54 IMPRESSION: 1. Acute infarct in the medial inferior 25% of the left kidney which can create pain, nausea, fever and leukocytosis. 2. Continued large right hilar and subcarinal mass most consistent with lung carcinoma versus other neoplasm. 3. Interval mild right basilar atelectasis and/or pneumonia. 4. 5.8 cm saccular infrarenal abdominal aortic aneurysm without rupture. 5. Patent aortic bilateral iliac artery endovascular stent. 6. 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 7. Small endovascular leak identified with contrast enhanced blood extending superiorly from the anterior margin of the left common iliac branch of the endovascular stent. Axial series 7, images 142-143. 8. Uniform urinary bladder wall thickening consistent with partial collapse of the urinary bladder, cystitis or chronic outlet obstruction. Head CT 02/05/22 09:00 IMPRESSION: 1. No intracranial hemorrhage. No mass effect or new infarct. 2. Mild atrophy and small vessel ischemic disease. A&P Assessment and plan (1) Cerebrovascular accident: Patient currently developed CVA and renal infarct. It is possible that he may have had a paradoxical embolization. Possibility of PFO is a consideration. For further evaluation, a RADHA would be appropriate. (2) Small cell lung cancer: Patient is in the process of getting the chemoradiation treatment (3) COPD (chronic obstructive pulmonary disease): Patient has a [id number] history of smoking abuse which he quit a month ago (4) Atherosclerosis of coronary artery of [place] heart without angina pectoris: Patient has no specific symptoms of coronary insufficiency. Continue current medications. (5) S/P AAA repair using bifurcation graft: Patient had a recent stent placement. Was found to have a small endoleak in the iliac graft. Need to get information about his aortic stent graft from [place]. (6) Dyslipidemia: Patient apparently has intolerance to statin. May need to consider PCSK9 inhibitors (7) Benign essential hypertension with target blood pressure below 140/90: Currently the patient is normotensive. Plan We will make arrangements to have the RADHA done as an outpatient. Apparently this patient had some difficulty in swallowing, possibly from the upper mediastinal lymph node. He had some features of venous obstruction. But he is able to eat his food without any difficulty. I may discuss with the oncology service as to the timing of the RADHA The risk of aspiration, bleeding, soft tissue injury, perforation of the stomach/esophagus and other concomitant complications were explained to the patient in detail. The patient understood this well and consented to proceed. Thank you for the opportunity to participate in the care of this patient Consult Attestations Medical Necessity Statement: Possible discharge home today Coding Level of Care Code Acute [employer] for [employer] Medical Decision Making Moderate Complexity Diagnoses Cerebrovascular accident I63.9 Small cell lung cancer C34.90 COPD (chronic obstructive pulmonary disease) J44.9 Atherosclerosis of coronary artery of [place] heart without angina pectoris I25.10 S/P AAA repair using bifurcation graft Z95.828; Z86.79 Dyslipidemia E78.5 Benign essential hypertension with target blood pressure below 140/90 I10
[2022-02-06] MEDS: allopurinol 100 mg Tablet PO (08:17)
[2022-02-06] MEDS: metoprolol tartrate 25 mg Tablet PO (08:17)
[2022-02-06] MEDS: aspirin 81 mg EC Tablet PO (08:17)
[2022-02-06 09:55] VITALS: PULSE 89; RESP 18; O2SAT 91
--- NOTE | 2022-02-06 10:49 | PM.DCS ---
Discharge Providers Date of Admission: 02/04/22 12:03 Date of Discharge: February 06, 2022 Attending Provider at Admission: Montrell Graff MD Attending Provider at Discharge: Montrell Graff MD Primary Care Provider: EUSEBIO Sanhcez Diagnoses at Discharge Discharge Diagnosis (1) Cerebrovascular accident: Status: Acute (2) Small cell lung cancer: Status: Acute (3) COPD (chronic obstructive pulmonary disease): Status: Acute (4) Atherosclerosis of coronary artery of [place] heart without angina pectoris: Status: Acute (5) S/P AAA repair using bifurcation graft: Status: Acute (6) Dyslipidemia: Status: Acute (7) Benign essential hypertension with target blood pressure below 140/90: Status: Acute Reason for Visit Reason for Visit: STROKE LIKE SYMPTOMS Hospital Course Hospital Course Karl presented to the hospital from the infusion center at [facility] with left hemiparesis and slurred speech. He was found to be having a stroke and initial CT demonstrated no hemorrhage. tPA was given as directed by neurology. He then transversed to ICU for close monitoring. In ICU heart rate remained sinus rhythm. He did develop abdominal pain, and CT scan of abdomen and pelvis was done with contrast demonstrating a left renal infarct. He was observed closely in the ICU and repeat CT scan following day of the head demonstrated no hemorrhage. He was moved out of the ICU and I had a brief discussion with neurology regarding anticoagulation. Secondary to 2 different areas of infarct anticoagulation was started in the form of Xarelto. Low-dose aspirin was continued secondary to patient's heart disease. He tolerated this well, had near complete resolution of his neurologic defect, and was able to go home on February 06. I had a long discussion with the patient regarding statin therapy. He reported this was an allergy in the past with rash as well as muscle pain. As statins are a more effective treatment to reduce CVA in the future he was amenable to continuing to try this at home, monitoring for any rash on muscle plan. We discussed that sometimes dose needs to be lowered, different agent tried to be able to tolerate these medicines as many people have muscle pain as a side effect but it is not a true allergy. He will monitor for this closely and notify his primary care provider should any of this occur. He will get a RADHA as an outpatient by cardiology, an event monitor as an outpatient, follow-up with neurology in 2 weeks, follow-up with his primary care provider 4 to 7 days. Physical Exam Narrative: General exam no distress Neck is supple no lymphadenopathy thyromegaly Cardiovascular regular in rhythm without murmur Lungs clear but with diminished breath sounds right side which is unchanged secondary to patient's history of lung malignancy. Abdomen is soft with positive bowel sounds Extremities no cyanosis clubbing or edema Skin without rash Neuro: No obvious residual deficit other than slight clumsiness of the left hand. Discharge Data Studies Completed and Pending Completed Studies During Hospitalization Category Date Time Status CT angio abdomen pelvis [id number] Stat Cat Scan 02/04/22 16:[address] head thrombolytic [id number] Stat Cat Scan 02/04/22 09:[address] head wo con* [id number] Routine Cat Scan 02/05/22 09:00 Completed CTA head neck [CT angio headneck* [id number]] Stat Cat Scan 02/04/22 09:46 Completed Pending at discharge Category Date Time Status CV. echo complete* [id number] Routine Ultrasound 02/05/22 06:00 Taken Radiology Impressions Head/Neck CTA 02/04/22 09:46 IMPRESSION: 1. Mild atherosclerotic disease. No significant stenosis or acute occlusion. 2. No occlusion or aneurysm within the [place] of [place]. 3. Known large RIGHT paratracheal mass and pulmonary nodules. Abdomen/Pelvis CTA 02/04/22 16:54 IMPRESSION: 1. Acute infarct in the medial inferior 25% of the left kidney which can create pain, nausea, fever and leukocytosis. 2. Continued large right hilar and subcarinal mass most consistent with lung carcinoma versus other neoplasm. 3. Interval mild right basilar atelectasis and/or pneumonia. 4. 5.8 cm saccular infrarenal abdominal aortic aneurysm without rupture. 5. Patent aortic bilateral iliac artery endovascular stent. 6. 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 7. Small endovascular leak identified with contrast enhanced blood extending superiorly from the anterior margin of the left common iliac branch of the endovascular stent. Axial series 7, images 142-143. 8. Uniform urinary bladder wall thickening consistent with partial collapse of the urinary bladder, cystitis or chronic outlet obstruction. Head CT 02/05/22 09:00 IMPRESSION: 1. No intracranial hemorrhage. No mass effect or new infarct. 2. Mild atrophy and small vessel ischemic disease. Laboratory Results WBC 11.0 10^3/uL (4.0-10.0) H 02/06/22 04:30 RBC 4.19 10^6/uL (4.1-5.3) 02/06/22 04:30 Hgb 11.8 g/dL (11.7-16.6) 02/06/22 04:30 Hct 36.1 % (42.0-52.0) L 02/06/22 04:30 MCV 86.2 fl (80-94) 02/06/22 04:30 MCH 28.2 pg (28.0-34.0) 02/06/22 04:30 MCHC 32.7 g/dL (30.0-36.0) 02/06/22 04:30 RDW 15.0 % (12.1-15.1) 02/06/22 04:30 Plt Count 171 10^3/cmm (130-400) 02/06/22 04:30 MPV 12.1 fL (7.4-10.4) H 02/06/22 04:30 Neut % (Auto) 65.6 % 02/06/22 04:30 Lymph % (Auto) 19.3 % 02/06/22 04:30 [place] % (Auto) 13.6 % 02/06/22 04:30 Eos % (Auto) 0.7 % 02/06/22 04:30 Baso % (Auto) 0.4 % 02/06/22 04:30 Neut # (Auto) 7.19 10^3/uL (1.8-7.7) 02/06/22 04:30 Lymph # (Auto) 2.1 10^3/uL (0.8-4.8) 02/06/22 04:30 [place] # (Auto) 1.5 10^3/uL (0.2-0.9) H 02/06/22 04:30 Eos # (Auto) 0.1 10^3/uL (0.0-0.8) 02/06/22 04:30 Baso # (Auto) 0.0 10^3/uL (0.0-0.1) 02/06/22 04:30 Nucleated RBC % (auto) 0 % 02/06/22 04:30 Nucleated RBCs # 0.0 /100WBC 02/06/22 04:30 PT 13.80 SECONDS (12.1-14.9) 02/04/22 09:30 INR 1.03 (0.8-1.2) 02/04/22 09:30 APTT 33.6 SECONDS (23.9-36.7) 02/04/22 09:30 Sodium 136 mmol/L (136-145) 02/06/22 04:30 Potassium 4.1 mmol/L (3.5-5.1) 02/06/22 04:30 Chloride 99 mmol/L (98-107) 02/06/22 04:30 Carbon Dioxide 25 mmol/L (22-29) 02/06/22 04:30 Anion Gap 16.1 (5-19) 02/06/22 04:30 BUN 10 mg/dL (8-23) 02/06/22 04:30 Creatinine 0.8 mg/dL (0.7-1.2) 02/06/22 04:30 GFR Calculation 96.4 mL/min (90-130) 02/06/22 04:30 Glucose 96 mg/dL (65-115) 02/06/22 04:30 Estimat Average Glucose 105 02/05/22 02:24 Hemoglobin A1c 5.3 % (4.0-6.0) 02/05/22 02:24 Calculated Osmolality 281 mOsm/kg (285-295) L 02/06/22 04:30 Calcium 9.4 mg/dL (8.5-10.5) 02/06/22 04:30 Total Bilirubin 0.7 mg/dL (0.15-1.2) 02/04/22 09:30 AST 23 U/L (0-40) 02/04/22 09:30 ALT 14 U/L (0-41) 02/04/22 09:30 Alkaline Phosphatase 109 U/L (40-130) 02/04/22 09:30 Total Protein 7.7 g/dL (6.6-8.7) 02/04/22 09:30 Albumin 3.9 g/dL (3.5-5.2) 02/04/22 09:30 Globulin 3.8 g/dL (1.3-4.6) 02/04/22 09:30 Triglycerides 91 mg/dL (0-150) 02/05/22 02:24 Cholesterol 156 mg/dL (0-200) 02/05/22 02:24 LDL Cholesterol, Calc 92 mg/dL (50-129) 02/05/22 02:24 HDL Cholesterol 46 mg/dL (60-100) L 02/05/22 02:24 LDL/HDL Ratio 2.00 RATIO (0.00-3.22) 02/05/22 02:24 Cholesterol/HDL Ratio 3.39 mg/dL (1.0-5.00) 02/05/22 02:24 Urine Color Yellow (Yellow) 02/04/22 11:50 Urine Appearance Clear (CLEAR) 02/04/22 11:50 Urine pH 6 (5-7) 02/04/22 11:50 Ur Specific [place] 1.010 (1.005-1.030) 02/04/22 11:50 Urine Protein Neg (Negative) 02/04/22 11:50 Urine Glucose (UA) Norm (Normal) 02/04/22 11:50 Urine Ketones Negative (Negative) 02/04/22 11:50 Urine Blood Neg (Negative) 02/04/22 11:50 Urine Nitrate Negative (Negative) 02/04/22 11:50 Urine Bilirubin Neg (Negative) 02/04/22 11:50 Urine Urobilinogen Norm mg/dL (Negative) 02/04/22 11:50 Ur Leukocyte Esterase Negative (Negative) 02/04/22 11:50 Urine Opiates Screen Negative ng/mL (Negative) 02/04/22 11:50 Ur Barbiturates Screen Negative ng/mL (Negative) 02/04/22 11:50 Ur Phencyclidine Scrn Negative ng/mL (Negative) 02/04/22 11:50 Ur Amphetamines Screen Negative ng/mL (Negative) 02/04/22 11:50 U Benzodiazepines Scrn Negative ng/mL (Negative) 02/04/22 11:50 Urine Cocaine Screen Negative ng/mL (Negative) 02/04/22 11:50 U Marijuana (THC) Screen Negative ng/mL (Negative) 02/04/22 11:50 Vitals Last Vital Signs Temp 98.3 F 02/06/22 08:00 Pulse 89 02/06/22 09:55 Resp 18 02/06/22 09:55 BP 116/73 02/06/22 08:00 Pulse Ox 91 02/06/22 09:55 O2 Del Method 11/23/22 09:55 O2 Flow Rate 2 02/05/22 20:00 Discharge Plan Discharge Patient Disposition: Home Condition: Stable Prescriptions: New atorvastatin 40 mg Tablet 40 mg PO BEDTIME Qty: 30 0RF Xarelto 10 mg Tablet 20 mg PO BEDTIME Qty: 30 0RF Continued albuterol sulfate 90 mcg/actuation HFA aerosol inhaler 2 puff inhalation Q6H PRN (Reason: shortness of breath or wheezing) Qty: 8.5 0RF (DME) nebulizers Misc See Rx Instructions .MEDSUPPLY Qty: 1 0RF Rx Instructions: As directed metoprolol tartrate 50 mg tablet 50 mg PO BID omeprazole 20 mg capsule,delayed release(DR/EC) 20 mg PO QAM aspirin 81 mg tablet,delayed release (DR/EC) 81 mg PO QAM gabapentin 300 mg capsule 300 mg PO BEDTIME lorazepam [Ativan] 0.5 mg tablet 0.5 mg PO Q8H PRN (Reason: anxiety) Qty: 60 0RF oxycodone-acetaminophen [Percocet] 5-325 mg tablet 1 - 2 tab PO .Q4-6H PRN (Reason: pain) 30 Days Qty: 60 0RF allopurinol 100 mg tablet 100 mg PO BID Qty: 60 0RF prochlorperazine maleate [Compazine] 10 mg tablet 10 mg PO Q4H PRN (Reason: Mild Nausea) Qty: 30 3RF lorazepam 1 mg tablet 0.5 - 1 mg PO Q6H PRN (Reason: Severe Nausea) Qty: 30 3RF multivitamin Tablet 1 tab PO QAM Vitamin C 1,000 mg Tablet 1,000 mg PO QAM Vitamin B-12 1,000 mcg Tablet 1,000 mcg PO QAM Vitamin D3 25 mcg (1,000 unit) Tablet 25 mcg PO QAM ipratropium-albuterol 0.5 mg-3 mg(2.5 mg base)/3 mL solution for nebulization 3 ml inhalation QID PRN (Reason: unknown) Anoro Ellipta 62.5-25 mcg/actuation blister with device 1 inh inhalation QAM Nitrostat 0.4 mg Tablet, Sublingual 0.4 mg SUBLINGUAL Q5M PRN (Reason: Chest Pain) Rx Instructions: do not exceed 3 doses per episode Discharge Orders: Discharge Order (Routine); Ordered 02/06/22 Ordered By: Montrell Graff Other Ambulatory Orders: CV. echo transesophageal [id number] (Routine) Timeframe: 2 Weeks Facility: [facility] - Location: GI Lab Ordered By: Asuncion Benjamin MCT/Event Monitor 21 Days (Routine) Timeframe: 1 Day Facility: [facility] - Location: Radiology Ordered By: Montrell Graff Referrals: Gayatri Hicks MD [Physician] - 04/15/22 12:30 pm (followup CVA) Asuncion Benjamin MD [Physician] - 02/11/22 10:45 am (Event monitor will be set up at this appointment. ) Cipriano Plascencia PA [Primary Care Provider] - 4-7 days (Please follow up within 1 week.) Discharge Diet: Cardiac Discharge Activity: Increase activity as tolerated Patient Instructions: Atorvastatin (By mouth), Rivaroxaban (By mouth), Opioid Safety Activity Restrictions/Additional Instructions: Take all medicine as prescribed Keep all follow-up Monitor for any bleeding such as blood in stool or black or tarry stools Please give stroke booklet, educate on Xarelto Patient's Health Concerns: Stroke Assessment: Significantly improved with resolution of much of left hemiparesis Plan of Treatment: Xarelto, cholesterol medicine for prevention of stroke Discharge Attestations Time Spent in Discharge Care*: greater than 30 min Quality Metrics Clinical Quality Measures [ Cerebrovascular Accident { Contraindication to Antithrombotic: None; antithrombotic prescribed; Contraindication to Anticoagulation: None; anticoagulation prescribed; Contraindication to Statin: None; Statin prescribed;}] Coding Level of Care Code Acute [facility] note Diagnoses Cerebrovascular accident I63.9 Small cell lung cancer C34.90 COPD (chronic obstructive pulmonary disease) J44.9 Atherosclerosis of coronary artery of [place] heart without angina pectoris I25.10 S/P AAA repair using bifurcation graft Z95.828; Z86.79 Dyslipidemia E78.5 Benign essential hypertension with target blood pressure below 140/90 I10
[2022-02-06 11:13] VITALS: BP 116/73; PULSE 89; RESP 18; TEMP 36.8; O2SAT 91
--- NOTE | 2022-02-06 16:25 | P.PNCC_ITS ---
Stroke Alert Activation ED Arrival Date: 02/04/22 ED Arrival Time: 09:14 Last Known Normal/at Baseline: < 1 hour ago Other Last Known Well Infomation: I was called stat for a stroke to the emergency department. This is a 66-year-old man with lung cancer and he was at the [facility] having placement of a port when he developed pure motor weakness of his entire right side. It started out with numbness and tingling and he called out to the staff and describe what he was experiencing. Rapid response was called and he was transferred to the emergency department where he was seen immediately by Dr. Castellanos who activated the stroke team. I called immediately and talked with Dr. Castellanos and we agreed that the patient should receive tPA. His blood pressure and blood sugar were both established to be stable. He was not on a blood thinner. His CT scan of the head was unremarkable. I talked with Dr. Castellanos by phone and I arrived in the emergency department just as the patient received his bolus of tPA. I reviewed his NIH stroke scale, performed an exam and talked with the patient and his about the treatment and the treatment plan. I later talked with Dr. Graff and asked him to go ahead with an outpatient stroke work-up. The patient's symptoms completely resolved after tPA and his CT angiogram did not show carotid artery or intracranial artery stenosis. I am scheduled to see him as an outpatient within a few weeks. Stroke Alert Activated by: Rapid manohar/Dr. Cuadra Stroke Alert Activation Time: 09:14 Stroke MD @ Bedside Time: 09:20 NIH stroke score NIHSS: Level Of Consciousness - 1a: 0 Level Of Consciousness Questions - 1b: Both Correct Level Of Consciousness Commands - 1c: Both Correct Best Gaze - 2: Normal Visual Vidal - 3: No Visual Loss Facial Palsy - 4: Minor Paralysis Motor Arm Right - 5: Drift Motor Arm Left - 5: No Drift Motor Leg Right - 6: Drift Motor Leg Left - 6: No Drift Limb Ataxia - 7: Absent Sensory - 8: Normal Best Language - 9: No Aphasia Dysarthia - 10: Mild/Moderate Dysarthia Stroke Alert Data/Treatment CT Impression: Mild white matter disease Stroke Risk Factors: hypertension tPA Started Date: 02/04/22 tPA Admin Prior to Arrival: No Other Patient & Family Education: Plan of care. Risks and benefits of tPA. Standardized Stroke Orders Used: Yes Critical Care Time Critical Care Time: 30 - 74 mins A&P Assessment and plan (1) Left acute arterial ischemic stroke, MCA (middle cerebral artery): 66-year-old man with known lung cancer presents with an acute stroke with pure motor hemiparesis on the right. Even with lacunar stroke it has been established that tPA is the correct treatment. I discussed this with the patient, his and with Dr. Castellanos and we were all in agreement. He received the bolus within 30 minutes of onset of his symptoms. Coding Level of Care Code Acute [employer] Diagnoses Left acute arterial ischemic stroke, MCA (middle cerebral artery) I63.512
== END 2022-02-06 12:00 | disposition home or self-care (01) | DRG 62 ==
LOC: ER 10:09 → ICU 12:13 → MEDSURG 02-05 14:36
PROVIDERS: Admitting Provider Internal Medicine; Emergency Provider Family Medicine; PCP Emergency Medicine; Visit Provider Internal Medicine
DX: I63.512 Cerebral infarction due to unspecified occlusion or stenosis of left middle cerebral artery (principal); C34.2 Malignant neoplasm of middle lobe, bronchus or lung; G81.91 Hemiplegia, unspecified affecting right dominant side; N28.0 Ischemia and infarction of kidney; R29.810 Facial weakness; R47.81 Slurred speech; R29.707 NIHSS score 7; I71.43 Infrarenal abdominal aortic aneurysm, without rupture; G89.29 Other chronic pain; M54.9 Dorsalgia, unspecified; J44.9 Chronic obstructive pulmonary disease, unspecified; I25.10 Atherosclerotic heart disease of native coronary artery without angina pectoris; Z95.5 Presence of coronary angioplasty implant and graft; K21.9 Gastro-esophageal reflux disease without esophagitis; I10 Essential (primary) hypertension; I25.2 Old myocardial infarction; Z87.891 Personal history of nicotine dependence; E78.5 Hyperlipidemia, unspecified; Z79.51 Long term (current) use of inhaled steroids; Z79.82 Long term (current) use of aspirin; Z79.891 Long term (current) use of opiate analgesic
CPT/HCPCS: 36415; 36416; 36593; 70450; 70496; 70498; 74174; 77300; 77301; 77338; 77386; 80048; 80053; 80061; 80306; 81003; 82962; 83036; 85025; 85610; 85730; 92507; 92523; 92526; 92610; 93005; 93306; 94640; 96374; 97110; 97161; 97165; 99285; 99291; C9113; J2270; J2405; J2997; J7030; J7626; Q9967

== ENCOUNTER 2022-02-11 06:00 | Outpatient (CLI) | payer MEDICARE, SELFPAY | END 2022-02-11 06:01 | disposition home or self-care (01) | LOC: LAB 03-27 13:02 | PROVIDERS: PCP Family Medicine; Visit Provider Family Medicine | DX: I63.9 Cerebral infarction, unspecified (principal); I49.1 Atrial premature depolarization; I49.3 Ventricular premature depolarization | CPT/HCPCS: 93270 ==

== ENCOUNTER 2022-02-13 08:00 | Oncology outpatient (recurring) (ONCR) | payer MEDICARE, SELFPAY ==
[2022-01-21 16:46] LABS: Basophils # 0.1 10^3/uL (0.0-0.1); Basophils % 0.8 %; Eosinophils # 0.4 10^3/uL (0.0-0.8); Eosinophils % 3.8 %; Hematocrit 38.5 % (42.0-52.0); Hemoglobin 12.2 g/dL (11.7-16.6); Lymphocytes # 3.3 10^3/uL (0.8-4.8); Lymphocytes % 36.7 %; Mean Corpuscular HGB Conc 31.7 g/dL (30.0-36.0); Mean Corpuscular Volume 88.3 fl (80-94); Mean Platelet Volume 11.1 fL (7.4-10.4); Monocytes # 1.1 10^3/uL (0.2-0.9); Monocytes % 12.4 %; Neutrophils % 46.1 %; Nucleated Red Blood Cells % 0 %; Platelet Count 248 10^3/cmm (130-400); Red Blood Count 4.36 10^6/uL (4.1-5.3); Red Cell Distribution Width 15.1 % (12.1-15.1); White Blood Count 9.1 10^3/uL (4.0-10.0)
[2022-01-21 17:33] LABS: Alanine Aminotransferase 15 U/L (0-41); Alkaline Phosphatase 102 U/L (40-130); Anion Gap 12.3 (5-19); Aspartate Amino Transferase 22 U/L (0-40); Blood Urea Nitrogen 18 mg/dL (8-23); Carbon Dioxide 29 mmol/L (22-29); Chloride 97 mmol/L (98-107); Globulin 3.5 g/dL (1.3-4.6); Glomerular Filtration Rate 84.2 mL/min (90-130); Glucose 82 mg/dL (65-115); Osmolality Calculated 277 mOsm/kg (285-295); Potassium 5.3 mmol/L (3.5-5.1); Sodium 133 mmol/L (136-145); Total Bilirubin 0.6 mg/dL (0.15-1.2); Total Protein 7.5 g/dL (6.6-8.7); Uric Acid 8.2 mg/dL (3.4-7.0)
--- NOTE | 2022-01-22 08:32 | N.ONRAD NP_ITS ---
Radiation Oncology Consultation Patient Name: Karl Martinez Date of : 1955 Date of Service: 01/21/2022 Attending Physician: Karl Hester M.D. Karl Martinez was seen in consultation this afternoon at the request of Chris Desai M.D. for consideration of palliative thoracic radiotherapy. He was evaluated by his primary care physician approximately 1 month ago for pain, dyspnea, and fatigue. A chest radiograph obtained on December 28, 2021 revealed a 5.7 cm lobulated mass in the right hilum. A thoracic CT scan (dependently reviewed in [facility]) ordered on January 04, 2022 confirmed a 4.9 cm x 5.9 cm x 10.3 cm right hilar mass that was associated with narrowing of the right mainstem bronchus and right upper lobe bronchus, anterior mediastinal, and bulky subcarinal lymphadenopathy. Endoscopy with endobronchial ultrasonography and biopsy was performed by Vito Chatterjee M.D. on January 08, 2022. 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 Following a discussion concerning Mr. Martinez???s symptoms, an attempt at palliative radiotherapy is warranted. I would recommend a two week course of hypo-fractionated treatment. A computed tomographic radiotherapy planning scan will be performed to identify the gross tumor volume. The potential toxicities of thoracic radiotherapy were reviewed. The patient has verbalized understanding would like to proceed as recommended. The patient's medical treatment plan was discussed with Chris Desai M.D. Signed by: Dr. Karl Hester 01/22/2022 8:30:37 AM
--- NOTE | 2022-01-23 | CT_ITS ---
Radiation Therapy Planning CT images; total exam DLP: 993.12 mGy-cm MTDD
--- NOTE | 2022-01-23 16:00 | MR_ITS ---
WS: [id number] MRI HEAD WITH CONTRAST TECHNIQUE: Sagittal T1, T2 axial, T2 axial FLAIR, axial susceptibility weighted imaging, axial diffus ion weighted images, and coronal T2 images were obtained. Pre and post-T1 axial and post T1 coronal i mages. ADC and FSPGR images. CLINICAL INFORMATION: STAGING COMPARISON: None. FINDINGS: No evidence of restricted diffusion to suggest acute ischemia. Ventricular system and basal cisterns are patent. Moderate small vessel changes. Moderate parenchymal volume loss. Normal posterior fossa. Normal vascular flow voids at the skull base. No extra-axial fluid collections. No evidence of mass o r mass effect. Mild mucosal thickening in the paranasal sinuses. Mastoid air cells are well aerated. Normal posterior nasopharynx. Normal parapharyngeal fat. No hemosiderin on susceptibly weighted image s. Normal optic chiasm and pituitary infundibulum. Temporal lobes and hippocampal formations are norm al in appearance. No abnormal gadolinium enhancement. No evidence of enhancing intracranial metastatic disease. Normal visualized dural venous sinuses. Enhancing small polypoid lesion adjacent to the RIGHT middle nasal t urbinate measuring 12 mm. Bilateral marlo bullosa. IMPRESSION: 1. No evidence of enhancing intracranial metastatic disease. 2. Moderate small vessel changes moderate parenchymal volume loss. 3. No restricted diffusion to suggest acute ischemia. 4. Small enhancing polypoid lesion adjacent to the RIGHT middle nasal turbinate measuring 12 mm. Thi s can be followed up with endoscopy. Bilateral marlo bullosa.
[2022-01-23] MEDS: gadobenate dimeglumine 20 mL vial IV (16:36)
[2022-02-04 09:10] VITALS: BP 140/88; PULSE 63; RESP 16; TEMP 36.6; O2SAT 95
[2022-02-04 09:25] LABS: Glucose Point of Care 90 mg/dL (70-110)
--- NOTE | 2022-02-04 09:56 | PC.NURSE ---
0905: Pt complains of left sided weakness after APC insertion, no blood return noted. CAthflo ordered. 0910: Pt states that pt cannot move left arm or lelg, noticable left sided facial droop noted. pt states he feelsfine but canoot move his left arm or leg at all. Dr fox in room, rapid response called. 0918: rapid response in room, pt transported to ER via infusion chair.
[2022-02-12 08:13] LABS: Basophils # 0.1 10^3/uL (0.0-0.1); Basophils % 1.1 %; Eosinophils # 0.3 10^3/uL (0.0-0.8); Eosinophils % 4.1 %; Hematocrit 34.7 % (42.0-52.0); Hemoglobin 11.4 g/dL (11.7-16.6); Lymphocytes # 1.6 10^3/uL (0.8-4.8); Lymphocytes % 22.5 %; Mean Corpuscular HGB Conc 32.9 g/dL (30.0-36.0); Mean Corpuscular Hemoglobin 28.4 pg (28.0-34.0); Mean Corpuscular Volume 86.5 fl (80-94); Mean Platelet Volume 10.8 fL (7.4-10.4); Monocytes # 0.9 10^3/uL (0.2-0.9); Monocytes % 12.4 %; Neutrophils # 4.22 10^3/uL (1.8-7.7); Neutrophils % 59.2 %; Nucleated Red Blood Cells % 0 %; Platelet Count 271 10^3/cmm (130-400); Red Blood Count 4.01 10^6/uL (4.1-5.3); Red Cell Distribution Width 14.6 % (12.1-15.1); White Blood Count 7.1 10^3/uL (4.0-10.0)
[2022-02-12 08:33] LABS: Alanine Aminotransferase 11 U/L (0-41); Albumin Level 3.6 g/dL (3.5-5.2); Alkaline Phosphatase 88 U/L (40-130); Anion Gap 15.3 (5-19); Aspartate Amino Transferase 20 U/L (0-40); Blood Urea Nitrogen 16 mg/dL (8-23); Calcium 9.9 mg/dL (8.5-10.5); Carbon Dioxide 24 mmol/L (22-29); Chloride 99 mmol/L (98-107); Globulin 3.6 g/dL (1.3-4.6); Glomerular Filtration Rate 96.4 mL/min (90-130); Glucose 99 mg/dL (65-115); Osmolality Calculated 279 mOsm/kg (285-295); Potassium 4.3 mmol/L (3.5-5.1); Sodium 134 mmol/L (136-145); Total Bilirubin 0.6 mg/dL (0.15-1.2); Total Protein 7.2 g/dL (6.6-8.7)
--- NOTE | 2022-02-12 09:03 | ONCRAD TMN_ITS ---
Radiation Oncology Treatment Management Note Patient Name: Karl Martinez Date of : 1955 Date of Service: 02/12/2022 Attending Physician: Karl Hester M.D. 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 A chest radiograph obtained on December 28, 2021 revealed a 5.7 cm lobulated mass in the right hilum. A thoracic CT scan ordered on January 04, 2022 confirmed a 4.9 cm x 5.9 cm x 10.3 cm right hilar mass that was associated with narrowing of the right mainstem bronchus and right upper lobe bronchus, anterior mediastinal, and bulky subcarinal lymphadenopathy. Endoscopy with endobronchial ultrasonography and biopsy was performed by Vito Chatterjee M.D. on January 08, 2022. 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 A PET scan ordered on January 31, 2022 confirmed a right suprahilar mass and right upper-lobe densities. An MRI of the head did not identify intracranial disease. The patient has received 8 Gy of a prescribed 66 Cadena with an intensity modulated radiotherapy plan utilizing a step and shoot treatment technique. He has been prescribed cisplatin (75 mg/m???) and etoposide (100 mg/m???) every three weeks. Upon review of systems, he denied new pulmonary symptoms. On physical examination, the patient weighed 205 lbs. His temperature was 98.2 ???F and the blood pressure was 96/64 mmHg. The pulse was 67 bpm and his respiratory rate was 18. Oxygen saturation while breathing room air was 95%. There was no erythema within the treatment kiser. Continue thoracic radiotherapy as prescribed. Signed by: Dr. Karl Hester 02/12/2022 9:07:11 AM
[2022-02-12] MEDS: sodium chloride 0.9% 250 ML 100 ML IV (11:01)
[2022-02-12] MEDS: ondansetron 2 mg/ML SDV 2 mL 8 MG IVP (11:02)
[2022-02-12] MEDS: diphenhydrAMINE 50 mg/mL SDV 1mL 25 MG IVP (11:03)
[2022-02-12] MEDS: OLANZapine 5 mg TABLET PO (11:04)
[2022-02-12] MEDS: acetaminophen 325 mg Tablet 650 MG PO (11:04)
[2022-02-12] MEDS: fosaprepitant 150 MG in sodium chloride 0.9% 150 ML 300 MG IV (11:06)
[2022-02-12] MEDS: famotidine 20 mg/2 mL INJ IVP (11:51)
[2022-02-12] MEDS: etoposide 205 MG in sodium chloride 0.9%(non-DEHP) 500 ML 510.25 MG IV (12:07)
[2022-02-12] MEDS: FUROsemide 10 mg/mL SDV 2mL 20 MG IVP (14:38)
[2022-02-12] MEDS: potassium chloride 20 MEQ in sodium chloride 0.9% 500 ML 500 MEQ IV (14:41)
[2022-02-12 15:44] VITALS: BP 120/72; PULSE 80; RESP 16; TEMP 36.7; O2SAT 93
[2022-02-13] MEDS: sodium chloride 0.9% 250 ML 100 ML IV (08:34)
[2022-02-13] MEDS: ondansetron 2 mg/ML SDV 2 mL 8 MG IVP (08:37)
[2022-02-13 08:54] VITALS: BP 131/80; PULSE 62; RESP 16; TEMP 36.2; O2SAT 94
[2022-02-13] MEDS: etoposide 205 MG in sodium chloride 0.9%(non-DEHP) 500 ML 510.25 MG IV (09:09)
== END 2022-02-13 23:59 | disposition home or self-care (01) ==
PROVIDERS: Internal Medicine Hematology & Oncology; PCP Emergency Medicine; Visit Provider Radiology Radiation Oncology
DX: Z51.0 Encounter for antineoplastic radiation therapy; Z51.11 Encounter for antineoplastic chemotherapy; C34.81 Malignant neoplasm of overlapping sites of right bronchus and lung; Z79.52 Long term (current) use of systemic steroids; Z79.899 Other long term (current) drug therapy
CPT/HCPCS: 36416; 36593; 70553; 77300; 77301; 77334; 77338; 77386; 77470; 80053; 82962; 84550; 85025; 96367; 96375; 96413; 96417; 99204; 99205; A9577; J1100; J1200; J1453; J1940; J2405; J3475; J3480; J3490; J7030; J7040; J7050; J9060; J9181

== ENCOUNTER 2022-02-27 10:12 | Emergency (ER) | payer MEDICARE, SELFPAY ==
[2022-02-27] VITALS (36 sets, daily range): BP systolic 94–151; BP diastolic 65–87; PULSE 100–117; RESP 15–22; TEMP 36.8–36.9; O2SAT 90–98; BMI 29.7; BMI 29.2
--- NOTE | 2022-02-27 11:02 | W.ED.GENADLT ---
HPI - General Adult General: Chief complaint: Shortness of Breath/Dyspnea Stated complaint: Dr. Acosta sent for low white blood cells Time Seen by Provider: 02/27/22 11:01 History of Present Illness: Mr. Martinez is a 66-year-old gentleman with recent diagnosis of small cell carcinoma of the lung presenting to the emergency department due to generalized illness with concern for neutropenic fever. He is currently on cisplatin/etoposide as well as radiation. He began feeling ill 2 days ago with generalized illness and subjective fevers. He continues to endorse sore throat which is largely unchanged likely secondary to radiation, he is currently undergoing treatment for thrush as well. He presented to clinic and was administered IV fluids for hypotension however still continues to feel worse. Laboratory studies yesterday noted an ANC of 160 and he was referred to the emergency department for further treatment. Continues to feel generally ill without focal source of infection. Intensity symptoms moderate. Course has worsened. No other specific changes in health, exacerbating, or alleviating factors identified. Onset (ago): day(s) Severity: moderate Relieving factors: none Exacerbating factors: other (Exertion) Associated symptoms: Reports fevers/chills and malaise Review of Systems General: Reports: 10 or more systems reviewed and unremarkable except in HPI and below Const: Reports: malaise PFSH ED PFSH: Medical History Abdominal aortic aneurysm Carpal tunnel syndrome on both sides Chronic back pain Congenital umbilical hernia COPD (chronic obstructive pulmonary disease) Coronary artery disease GERD (gastroesophageal reflux disease) Hypertension Past heart attack Port-A-Cath in place Small cell lung cancer, right middle lobe Surgical History History of bilateral carpal tunnel release History of endovascular stent graft for abdominal aortic aneurysm (AAA) History of heart artery stent History of tonsillectomy and adenoidectomy Hx of umbilical hernia repair S/P AAA repair using bifurcation graft S/P rotator cuff repair Family History Family/Other Cancer Father CAD (coronary artery disease) Stroke Brother CAD (coronary artery disease) Brother CAD (coronary artery disease) Diabetes Sister CAD (coronary artery disease) Cancer Chronic kidney disease (CKD) Diabetes Sister Cancer Diabetes Mother Stroke Other Hyperlipidemia Hypertension Psychiatric illness Denies family history of Clotting disorder Dementia Suicide Anesthesia complication Bleeding disorder Lung disease Social History Smoking and tobacco status: former smoker (smoked x 50+ years) Alcohol intake: never Physical Exam Const: COMMON NORMALS: alert GENERAL APPEARANCE: cooperative and well developed HENMT: COMMON NORMALS: normocephalic and atraumatic HEAD & SCALP: normocephalic and atraumatic THROAT: posterior oropharynx normal Eye: COMMON NORMALS: conjunctivae normal CONJUNCTIVA: Yes conjunctivae normal SCLERA: sclerae normal Neck/C-Spine: COMMON NORMALS: supple GENERAL: Yes trachea midline Resp: COMMON NORMALS: clear to auscultation bilaterally EFFORT & INSPECTION: Yes able to speak in complete sentences AUSCULTATION: clear to auscultation bilaterally Cardio: COMMON NORMALS: regular rate and regular rhythm RATE: regular rate RHYTHM: regular rhythm GI: COMMON NORMALS: Soft to palpation PALPATION: Yes Soft to palpation and No Tenderness to palpation present (GI) Extremity: GENERAL: Yes normal exam except as noted and No edema Neuro: COMMON NORMALS: moves all extremities SENSORIUM/ORIENTATION: Yes alert and No Orientation impaired Psych: COMMON NORMALS: mental status grossly normal and Normal thought process present THOUGHT PROCESS: Normal thought process present Course Vital Signs: Vital signs: Vital Signs Temperature 98.3 F 02/27/22 11:07 Pulse Rate 105 H 02/27/22 14:34 Respiratory Rate 16 02/27/22 14:34 Blood Pressure 111/69 02/27/22 14:34 Pulse Oximetry 94 02/27/22 14:34 Oxygen Delivery Az thod 02/27/22 11:07 Oxygen Flow Rate 6 02/27/22 11:07 [facility] - General Adult Medical Decision Making 66-year-old gentleman on chemotherapy presenting due to low white blood cell count. He has felt somewhat ill however has not had measured fevers at home. He is on baseline oxygen. Patient is mildly ill however nontoxic in appearance. Labs notable for improved white blood cell count with ANC now greater than 500. Mild evidence of dehydration on metabolic panel. No UTI. Viral panel negative. Chest x-ray with significant improved infiltrate compared to prior Prior to obtaining completed lab results patient was empirically given cefepime dose. He feels significantly improved after 1 L of IV fluids. I discussed possible disposition options. Given improvement and no measured fever at home the patient feels comfortable going home with antibiotics and strict return precautions. Most likely etiology of patient symptoms is unclear. The results of ED evaluation were discussed with the patient including prescriptions and/or symptomatic cares (if applicable) including appropriate and responsible use, followup plan, and return precautions. The patient verbalized understanding and felt safe for discharge. Medical Records I reviewed the patient's medical records. Lab Data I reviewed the patient's lab results. 02/27/22 11:27 02/27/22 11:27 Radiology Impressions Chest X-Ray 02/27/22 11:11 IMPRESSION: Considerable improvement regarding right hilar lung mass and adjacent perihilar infiltrate. Laboratory Results WBC 1.7 10^3/uL (4.0-10.0) L 02/27/22 11:27 RBC 3.53 10^6/uL (4.1-5.3) L 02/27/22 11:27 Hgb 9.9 g/dL (11.7-16.6) L 02/27/22 11:27 Hct 30.0 % (42.0-52.0) L 02/27/22 11:27 MCV 85.0 fl (80-94) 02/27/22 11:27 MCH 28.0 pg (28.0-34.0) 02/27/22 11:27 MCHC 33.0 g/dL (30.0-36.0) 02/27/22 11:27 RDW 14.5 % (12.1-15.1) 02/27/22 11:27 Plt Count 145 10^3/cmm (130-400) 02/27/22 11:27 MPV 9.9 fL (7.4-10.4) 02/27/22 11:27 Neut % (Auto) 35.5 % 02/27/22 11:27 Lymph % (Auto) 19.9 % 02/27/22 11:27 [place] % (Auto) 39.2 % 02/27/22 11:27 Eos % (Auto) 4.2 % 02/27/22 11:27 Baso % (Auto) 0.0 % 02/27/22 11:27 Neut # (Auto) 0.59 10^3/uL (1.8-7.7) L* 02/27/22 11:27 Lymph # (Auto) 0.3 10^3/uL (0.8-4.8) L 02/27/22 11:27 [place] # (Auto) 0.7 10^3/uL (0.2-0.9) 02/27/22 11:27 Eos # (Auto) 0.1 10^3/uL (0.0-0.8) 02/27/22 11:27 Baso # (Auto) 0.0 10^3/uL (0.0-0.1) 02/27/22 11:27 Nucleated RBC % (auto) 0 % 02/27/22 11:27 Nucleated RBCs # 0.0 /100WBC 02/27/22 11:27 Sodium 135 mmol/L (136-145) L 02/27/22 11:27 Potassium 4.2 mmol/L (3.5-5.1) 02/27/22 11:27 Chloride 99 mmol/L (98-107) 02/27/22 11:27 Carbon Dioxide 24 mmol/L (22-29) 02/27/22 11:27 Anion Gap 16.2 (5-19) 02/27/22 11:27 BUN 16 mg/dL (8-23) 02/27/22 11:27 Creatinine 0.9 mg/dL (0.7-1.2) 02/27/22 11:27 GFR Calculation 84.2 mL/min (90-130) L 02/27/22 11:27 Glucose 93 mg/dL (65-115) 02/27/22 11:27 Calculated Osmolality 281 mOsm/kg (285-295) L 02/27/22 11:27 Lactic Acid 1.0 mmol/L (0.5-2.2) 02/27/22 11:47 Calcium 9.3 mg/dL (8.5-10.5) 02/27/22 11:27 Total Bilirubin 0.7 mg/dL (0.15-1.2) 02/27/22 11:27 AST 18 U/L (0-40) 02/27/22 11:27 ALT 15 U/L (0-41) 02/27/22 11:27 Alkaline Phosphatase 77 U/L (40-130) 02/27/22 11:27 Total Protein 7.0 g/dL (6.6-8.7) 02/27/22 11:27 Albumin 3.9 g/dL (3.5-5.2) 02/27/22 11:27 Globulin 3.1 g/dL (1.3-4.6) 02/27/22 11:27 Urine Color Debbie (Yellow) 02/27/22 13:54 Urine Appearance Clear (CLEAR) 02/27/22 13:54 Urine pH 5 (5-7) 02/27/22 13:54 Ur Specific [place] 1.015 (1.005-1.030) 02/27/22 13:54 Urine Protein Neg (Negative) 02/27/22 13:54 Urine Glucose (UA) Norm (Normal) 02/27/22 13:54 Urine Ketones 2+ (Negative) H 02/27/22 13:54 Urine Blood 2+ (Negative) H 02/27/22 13:54 Urine Nitrate Negative (Negative) 02/27/22 13:54 Urine Bilirubin Neg (Negative) 02/27/22 13:54 Urine Urobilinogen Neg mg/dL (Negative) 02/27/22 13:54 Ur Leukocyte Esterase Negative (Negative) 02/27/22 13:54 Urine RBC 0-4 /hpf (0-2) H 02/27/22 13:54 Urine WBC None /hpf (0-5) 02/27/22 13:54 Ur Squamous Epith Cells Rare /hpf (0-5) 02/27/22 13:54 Amorphous Sediment Not Reportable 02/27/22 13:54 Urine Bacteria None /hpf (NONE) 02/27/22 13:54 Urine Mucus 3+ /hpf 02/27/22 13:54 Nasal Influ A H1 2009 PCR Not detected (NOT DETECT) 02/27/22 11:45 Adenovirus (PCR) Not detected (NOT DETECT) 02/27/22 11:45 C. pneumoniae DNA (PCR) Not detected (NOT DETECT) 02/27/22 11:45 Coronavirus 229E (PCR) Not detected (NOT DETECT) 02/27/22 11:45 Human Metapneumovir PCR Not detected (NOT DETECT) 02/27/22 11:45 Influenza A (H1) PCR Not detected (NOT DETECT) 02/27/22 11:45 Influenza A (H3) PCR Not detected (NOT DETECT) 02/27/22 11:45 Influenza Type A (PCR) Not detected (NOT DETECT) 02/27/22 11:45 Influenza Type B (PCR) Not detected (NOT DETECT) 02/27/22 11:45 M. pneumoniae (PCR) Not detected (NOT DETECT) 02/27/22 11:45 Parainfluenza 1 (PCR) Not detected (NOT DETECT) 02/27/22 11:45 Parainfluenza 2 (PCR) Not detected (NOT DETECT) 02/27/22 11:45 Parainfluenza 3 (PCR) Not detected (NOT DETECT) 02/27/22 11:45 Parainfluenza 4 (PCR) Not detected (NOT DETECT) 02/27/22 11:45 RSV Type A (PCR) Not detected (NOT DETECT) 02/27/22 11:45 RSV Type B (PCR) Not detected (NOT DETECT) 02/27/22 11:45 Entero/Rhino (PCR) Not detected (NOT DETECT) 02/27/22 11:45 SARS-CoV-2 (PCR) Not detected (NOT DETECT) 02/27/22 11:45 Discharge Plan Discharge Patient Disposition: Home Clinical Impression: Generalized weakness, Leukopenia, Neutropenia, Dehydration, Anemia, Hematuria Condition: Stable Prescriptions: No Action albuterol sulfate 90 mcg/actuation HFA aerosol inhaler 2 puff inhalation Q6H PRN (Reason: shortness of breath or wheezing) Qty: 8.5 0RF (DME) nebulizers Misc See Rx Instructions .MEDSUPPLY Qty: 1 0RF Rx Instructions: As directed gabapentin 300 mg capsule 300 mg PO BEDTIME 30 Days Qty: 30 2RF omeprazole 20 mg capsule,delayed release(DR/EC) 20 mg PO QAM 90 Days Qty: 90 1RF Nitrostat 0.4 mg tablet, sublingual 0.4 mg SUBLINGUAL Q5M PRN (Reason: Chest Pain) Qty: 25 0RF Rx Instructions: do not exceed 3 doses per episode tizanidine 2 mg tablet 2 mg PO Q8H PRN (Reason: muscle spasticity) Qty: 30 1RF aspirin 81 mg tablet,delayed release (DR/EC) 81 mg PO QAM oxycodone-acetaminophen [Percocet] 5-325 mg tablet 1 - 2 tab PO .Q4-6H PRN (Reason: pain) 30 Days Qty: 60 0RF allopurinol 100 mg tablet 100 mg PO BID Qty: 60 0RF lidocaine-prilocaine 2.5-2.5 % cream 1 applic topical .COMPLEX Qty: 30 0RF Rx Instructions: Apply quarter sized amount 30-45 minutes prior to port access. Cover with cellophane after application. Xarelto 10 mg tablet 20 mg PO BEDTIME Qty: 30 3RF oxycodone 5 mg/5 mL solution 5 mg PO Q6H PRN (Reason: pain) 14 Days Qty: 250 0RF lidocaine HCl [Lidocaine Viscous] 2 % solution 5 ml mucous membrane QID PRN (Reason: pain) 7 Days Qty: 80 5RF Rx Instructions: Add 80cc Benadryl and 80cc Maalox - Magic Mouthwash. Swallow nystatin 100,000 unit/mL suspension 5 ml PO TID Qty: 200 0RF Rx Instructions: swish and swallow atorvastatin 40 mg tablet 40 mg PO BEDTIME prochlorperazine maleate [Compazine] 10 mg tablet 10 mg PO Q4H PRN (Reason: Mild Nausea) Qty: 30 3RF multivitamin Tablet 1 tab PO QAM ascorbic acid (vitamin C) [Vitamin C] 1,000 mg Tablet 1,000 mg PO QAM cyanocobalamin (vitamin B-12) [Vitamin B-12] 1,000 mcg Tablet 1,000 mcg PO QAM cholecalciferol (vitamin D3) [Vitamin D3] 25 mcg (1,000 unit) Tablet 25 mcg PO QAM Anoro Ellipta 62.5-25 mcg/actuation blister with device 1 inh inhalation QAM mupirocin 2 % ointment kit See Rx Instructions .ROUTE .COMPLEX Qty: 1 0RF Rx Instructions: Nasal, armpit folds, groin folds daily for 5 days in a month for 6 months Discharge Orders: Discharge ED (Routine); Ordered 02/27/22 Ordered By: Arturo Markham Referrals: Lianet Hannah MD [Primary Care Provider] - Discharge Diet: Usual diet Discharge Activity: Increase activity as tolerated Patient Instructions: Dehydration (ED), Hematuria (ED), Neutropenia - Oncology Activity Restrictions/Additional Instructions: Thank you for visiting the emergency department. You were seen and evaluated for abnormal lab work with concern for generalized illness. Because your absolute neutrophil count has improved and because you have not had documented fever I believe that outpatient management is reasonable especially since you feel significantly improved. I will prescribe antibiotics. Please ensure that you are staying hydrated and follow up closely with your primary care provider and oncology. Please return to the emergency department for worsening symptoms or anything else that you are concerned about and feel needs emergency department evaluation. 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
--- NOTE | 2022-02-27 11:11 | XRR_ITS ---
PROCEDURE INFORMATION: Exam: XR Chest Exam date and time: 02/27/2022 11:59 AM Age: 66 years old Clinical indication: Fever; Additional info: Neutropenic fever TECHNIQUE: Imaging protocol: Radiologic exam of the chest. Views: 1 view. COMPARISON: CR XR chest 1V portable [id number] 01/24/2022 1:14 PM FINDINGS: Tubes, catheters and devices: There is a left-sided chest port whose tip terminates at the junction of the left subclavian vein and SVC, unchanged. There is an electronic monitoring device projecting over the left mid chest. Lungs: There is considerable improvement regarding right perihilar lung mass and adjacent perihilar infiltrate that is presumed neoplastic in nature. There are stable granulomatous calcifications within the right lung. Left lung field is aerated and clear. Pleural spaces: Unremarkable. No pleural effusion. No pneumothorax. Heart/Mediastinum: Unremarkable. No cardiomegaly. Diaphragm: There is moderate elevation right hemidiaphragm, stable. Bones/joints: Unremarkable for age. XR/XR chest 1V portable [id number] IMPRESSION: Considerable improvement regarding right hilar lung mass and adjacent perihilar infiltrate.
[2022-02-27 11:39] LABS: Eosinophils # 0.1 10^3/uL (0.0-0.8); Eosinophils % 4.2 %; Hemoglobin 9.9 g/dL (11.7-16.6); Lymphocytes # 0.3 10^3/uL (0.8-4.8); Lymphocytes % 19.9 %; Mean Platelet Volume 9.9 fL (7.4-10.4); Monocytes # 0.7 10^3/uL (0.2-0.9); Monocytes % 39.2 %; Neutrophils % 35.5 %; Nucleated Red Blood Cells % 0 %; Platelet Count 145 10^3/cmm (130-400); Red Blood Count 3.53 10^6/uL (4.1-5.3); Red Cell Distribution Width 14.5 % (12.1-15.1); White Blood Count 1.7 10^3/uL (4.0-10.0)
[2022-02-27] MEDS: sodium chloride 0.9% 1,000 ML 999 ML IV (11:51)
[2022-02-27] MEDS: cefepime 2,000 MG in sodium chloride 0.9% (plus) 50 ML 100 MG IV (11:51)
[2022-02-27 11:55] LABS: Neutrophils # 0.59 10^3/uL (1.8-7.7)
[2022-02-27 11:56] LABS: Alanine Aminotransferase 15 U/L (0-41); Albumin Level 3.9 g/dL (3.5-5.2); Alkaline Phosphatase 77 U/L (40-130); Anion Gap 16.2 (5-19); Aspartate Amino Transferase 18 U/L (0-40); Blood Urea Nitrogen 16 mg/dL (8-23); Calcium 9.3 mg/dL (8.5-10.5); Carbon Dioxide 24 mmol/L (22-29); Chloride 99 mmol/L (98-107); Globulin 3.1 g/dL (1.3-4.6); Glomerular Filtration Rate 84.2 mL/min (90-130); Glucose 93 mg/dL (65-115); Osmolality Calculated 281 mOsm/kg (285-295); Potassium 4.2 mmol/L (3.5-5.1); Slide Review Slide Review Perform; Sodium 135 mmol/L (136-145); Total Bilirubin 0.7 mg/dL (0.15-1.2)
[2022-02-27 14:10] LABS: Blood Urine 2+ (Negative); Glucose Urine UA Norm (Normal); Ketones Urine 2+ (Negative); Protein Urine Neg (Negative); Specific Gravity, Urine 1.015 (1.005-1.030); Urine Appearance Clear (CLEAR); Urine Color Amber (Yellow); pH Urine 5 (5-7)
[2022-02-27 14:11] LABS: Add Urine Microscopic? YES; Bilirubin Urine Neg (Negative); Leukocyte Esterase Urine Negative (Negative); Nitrate Urine Negative (Negative); Urobilinogen Urine Neg (Negative)
[2022-02-27 14:12] LABS: Adenovirus Not Detected (NOT DETECT); Chlamydia Pneumoniae Not Detected (NOT DETECT); Coronavirus 229E,HKU1,NL63,OC4 Not Detected (NOT DETECT); Human Metapneumovirus Not Detected (NOT DETECT); Human Rhinovirus/Enterovirus Not Detected (NOT DETECT); Influenza A Not Detected (NOT DETECT); Influenza A H1 Not Detected (NOT DETECT); Influenza A H1-2009 Not Detected (NOT DETECT); Influenza A H3 Not Detected (NOT DETECT); Influenza B Not Detected (NOT DETECT); Mycoplasma Pneumoniae Not Detected (NOT DETECT); Parainfluenza Virus Type 1 Not Detected (NOT DETECT); Parainfluenza Virus Type 2 Not Detected (NOT DETECT); Parainfluenza Virus Type 3 Not Detected (NOT DETECT); Parainfluenza Virus Type 4 Not Detected (NOT DETECT); Respiratory Syncytial Virus A Not Detected (NOT DETECT); Respiratory Syncytial Virus B Not Detected (NOT DETECT); SARS-COV-2 Not Detected (NOT DETECT)
[2022-02-27 14:12] LABS: Add Urine Culture? No; Mucus Urine 3+ /hpf; RBC Urine 0-4 /hpf (0-2); Squamous Epithelial Cell Urine RARE /hpf (0-5)
--- NOTE | 2022-02-28 06:17 | PC.NURSE ---
lab called with positive blood culture, gram positive cocci in clusters; Dr. Parker informed of results and that patient was sent home on Levaquin; agreed patient was covered.
== END 2022-02-27 14:38 | disposition home or self-care (01) ==
PROVIDERS: Physician Assistant; Emergency Provider Emergency Medicine; PCP Family Medicine
DX: D70.9 Neutropenia, unspecified (principal); E86.0 Dehydration; R31.9 Hematuria, unspecified; D64.9 Anemia, unspecified; R53.1 Weakness; Z79.82 Long term (current) use of aspirin; Z20.822 Contact with and (suspected) exposure to COVID-19; Z87.891 Personal history of nicotine dependence; J44.9 Chronic obstructive pulmonary disease, unspecified; I25.10 Atherosclerotic heart disease of native coronary artery without angina pectoris; I10 Essential (primary) hypertension; C34.90 Malignant neoplasm of unspecified part of unspecified bronchus or lung; Z79.899 Other long term (current) drug therapy
CPT/HCPCS: 36415; 71045; 80053; 81001; 83605; 85025; 87040; 87077; 87086; 87150; 87186; 87205; 87486; 87581; 87633; 96365; 99284; J0692; J7030

== ENCOUNTER 2022-02-28 20:10 | Inpatient (IN) | payer MEDICARE, SELFPAY ==
[2022-02-28 20:13] VITALS: BP 114/77; PULSE 87; RESP 16; TEMP 36.9; O2SAT 96; BMI 29.7
--- NOTE | 2022-02-28 20:23 | XRR_ITS ---
PROCEDURE INFORMATION: Exam: XR Chest Exam date and time: 02/28/2022 8:34 PM Age: 66 years old Clinical indication: Fever TECHNIQUE: Imaging protocol: Radiologic exam of the chest. Views: 1 view. COMPARISON: CR XR chest 1V portable [id number] 02/27/2022 11:59 AM FINDINGS: Tubes, catheters and devices: Left-sided Port-A-Cath. Lungs: Bilateral mid to lower lung field right greater left mixed interstitial and airspace infiltrates. Pleural spaces: Unremarkable. No pleural effusion. No pneumothorax. Heart/Mediastinum: Unremarkable. No cardiomegaly. Bones/joints: Unremarkable. XR/XR chest 1V portable [id number] IMPRESSION: 1. Bilateral mid to lower lung field right greater left mixed interstitial and airspace infiltrates. 2. Left-sided Port-A-Cath.
--- NOTE | 2022-02-28 20:27 | W.ED.GENADLT ---
HPI - General Adult General: Chief complaint: General Medical Stated complaint: Staff Infections Time Seen by Provider: 02/28/22 20:19 Source: patient Mode of arrival: ambulatory Limitations: no limitations History of Present Illness: 66-year-old male who has a history of small cell lung cancer is currently on radiation he was sent here yesterday for neutropenia he was afebrile he states he felt improved and wanted to go home states today's felt much worse he has been fatigued he is slept all day he is called to come back she did have a positive blood culture. He is still afebrile denies any cough denies any vomiting diarrhea Associated symptoms: Deny chest pain, dyspnea, headache(s), nausea, rash or vomiting Review of Systems Const: Reports: chills, body aches and fatigue Eyes: Denies: blurry vision or eye discomfort ENMT: Denies: throat pain or dental pain Card: Denies: chest pain Resp: Denies: dyspnea GI: Denies: abdominal pain, nausea, vomiting or diarrhea : Denies: dysuria Musc: Denies: neck pain or back pain Skin/Breast: Denies: rash Neuro: Denies: headache(s) Psych: Denies: depression Antoni/Lymph: Denies: easy bruising All/Imm: Denies: urticaria PFSH ED PFSH: Medical History Abdominal aortic aneurysm Carpal tunnel syndrome on both sides Chronic back pain Congenital umbilical hernia COPD (chronic obstructive pulmonary disease) Coronary artery disease GERD (gastroesophageal reflux disease) Hypertension Past heart attack Small cell lung cancer, right middle lobe Surgical History History of endovascular stent graft for abdominal aortic aneurysm (AAA) History of heart artery stent S/P rotator cuff repair Family History Family/Other Cancer Father CAD (coronary artery disease) Stroke Brother CAD (coronary artery disease) Brother CAD (coronary artery disease) Diabetes Sister CAD (coronary artery disease) Cancer Chronic kidney disease (CKD) Diabetes Sister Cancer Diabetes Mother Stroke Other Hyperlipidemia Hypertension Psychiatric illness Denies family history of Clotting disorder Dementia Suicide Anesthesia complication Bleeding disorder Lung disease Social History Smoking and tobacco status: former smoker (smoked x 50+ years) Alcohol intake: never Physical Exam Const: COMMON NORMALS: patient oriented x3 GENERAL APPEARANCE: ill appearing HENMT: COMMON NORMALS: normocephalic and atraumatic HEAD & SCALP: normocephalic and atraumatic Eye: COMMON NORMALS: Equal, round and reactive pupils present and EOMs intact bilaterally PUPIL: Yes Equal, round and reactive pupils present Neck/C-Spine: COMMON NORMALS: full ROM and supple Chest: COMMONS NORMALS: normal inspection of the chest and normal palpation of entire chest wall Resp: COMMON NORMALS: normal respiratory effort, No retractions, No use of accessory muscles and clear to auscultation bilaterally AUSCULTATION: clear to auscultation bilaterally Cardio: COMMON NORMALS: regular rate, regular rhythm and No murmurs present (Cardio) RATE: regular rate RHYTHM: regular rhythm GI: COMMON NORMALS: Normal to inspection, nondistended, normoactive bowel sounds present, Soft to palpation, non-tender and no masses PALPATION: Yes Soft to palpation Extremity: COMMON NORMALS: normal to inspection and full ROM Neuro: COMMON NORMALS: patient oriented x3, moves all extremities and no focal motor deficits Psych: COMMON NORMALS: mental status grossly normal, Normal thought process present and cooperative THOUGHT PROCESS: Normal thought process present Skin: COMMON NORMALS: no rashes or lesions noted and no wounds GENERAL SKIN EXAM: no rashes or lesions noted Course Vital Signs: Vital signs: Vital Signs Temperature 98.4 F 02/28/22 20:13 Pulse Rate 87 02/28/22 20:13 Respiratory Rate 16 02/28/22 20:13 Blood Pressure 114/77 02/28/22 20:13 Pulse Oximetry 96 02/28/22 20:13 Oxygen Delivery Me thod 02/28/22 20:13 [facility] - General Adult Medical Decision Making Patient presents here with neutropenia x-ray shows a possible pneumonia he did have positive blood cultures that were drawn yesterday will admit for IV antibiotics at this time. Lab Data 02/28/22 20:45 02/28/22 20:45 Radiology Impressions Chest X-Ray 02/28/22 20:23 IMPRESSION: 1. Bilateral mid to lower lung field right greater left mixed interstitial and airspace infiltrates. 2. Left-sided Port-A-Cath. Laboratory Results WBC 3.0 10^3/uL (4.0-10.0) L 02/28/22 20:45 RBC 3.28 10^6/uL (4.1-5.3) L 02/28/22 20:45 Hgb 9.2 g/dL (11.7-16.6) L 02/28/22 20:45 Hct 28.1 % (42.0-52.0) L 02/28/22 20:45 MCV 85.7 fl (80-94) 02/28/22 20:45 MCH 28.0 pg (28.0-34.0) 02/28/22 20:45 MCHC 32.7 g/dL (30.0-36.0) 02/28/22 20:45 RDW 14.6 % (12.1-15.1) 02/28/22 20:45 Plt Count 197 10^3/cmm (130-400) 02/28/22 20:45 MPV 10.8 fL (7.4-10.4) H 02/28/22 20:45 Neut % (Auto) 47.2 % 02/28/22 20:45 Lymph % (Auto) 13.3 % 02/28/22 20:45 [place] % (Auto) 35.2 % 02/28/22 20:45 Eos % (Auto) 1.7 % 02/28/22 20:45 Baso % (Auto) 0.3 % 02/28/22 20:45 Neut # (Auto) 1.42 10^3/uL (1.8-7.7) L 02/28/22 20:45 Lymph # (Auto) 0.4 10^3/uL (0.8-4.8) L 02/28/22 20:45 [place] # (Auto) 1.1 10^3/uL (0.2-0.9) H 02/28/22 20:45 Eos # (Auto) 0.1 10^3/uL (0.0-0.8) 02/28/22 20:45 Baso # (Auto) 0.0 10^3/uL (0.0-0.1) 02/28/22 20:45 Nucleated RBC % (auto) 0 % 02/28/22 20:45 Nucleated RBCs # 0.0 /100WBC 02/28/22 20:45 Discharge Plan Discharge Patient Disposition: Admitted As Inpatient Clinical Impression: Small cell lung cancer, right middle lobe, Neutropenia, Pneumonia Condition: Stable 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
[2022-02-28] MEDS: piperacillin-tazobactam 3.375 GM in sodium chloride 0.9% (plus) 50 ML IV (21:03)
[2022-02-28 21:17] VITALS: BP 126/81; PULSE 102; RESP 18; O2SAT 94
[2022-02-28 21:17] LABS: Basophils % 0.3 %; Eosinophils # 0.1 10^3/uL (0.0-0.8); Eosinophils % 1.7 %; Hematocrit 28.1 % (42.0-52.0); Hemoglobin 9.2 g/dL (11.7-16.6); Lymphocytes # 0.4 10^3/uL (0.8-4.8); Lymphocytes % 13.3 %; Mean Corpuscular HGB Conc 32.7 g/dL (30.0-36.0); Mean Corpuscular Volume 85.7 fl (80-94); Mean Platelet Volume 10.8 fL (7.4-10.4); Monocytes # 1.1 10^3/uL (0.2-0.9); Monocytes % 35.2 %; Neutrophils # 1.42 10^3/uL (1.8-7.7); Neutrophils % 47.2 %; Nucleated Red Blood Cells % 0 %; Platelet Count 197 10^3/cmm (130-400); Red Blood Count 3.28 10^6/uL (4.1-5.3); Red Cell Distribution Width 14.6 % (12.1-15.1)
[2022-02-28] MEDS: vancomycin 1,000 MG in sodium chloride 0.9% 250 ML 250 MG IV (21:25)
[2022-02-28 21:34] LABS: Alanine Aminotransferase 14 U/L (0-41); Albumin Level 3.7 g/dL (3.5-5.2); Alkaline Phosphatase 78 U/L (40-130); Anion Gap 15.8 (5-19); Aspartate Amino Transferase 18 U/L (0-40); Blood Urea Nitrogen 15 mg/dL (8-23); Calcium 9.2 mg/dL (8.5-10.5); Carbon Dioxide 22 mmol/L (22-29); Chloride 100 mmol/L (98-107); Globulin 3.2 g/dL (1.3-4.6); Glomerular Filtration Rate 112.5 mL/min (90-130); Glucose 95 mg/dL (65-115); Osmolality Calculated 279 mOsm/kg (285-295); Potassium 3.8 mmol/L (3.5-5.1); Sodium 134 mmol/L (136-145); Total Bilirubin 0.5 mg/dL (0.15-1.2); Total Protein 6.9 g/dL (6.6-8.7)
--- NOTE | 2022-02-28 21:34 | P.HP_ITS ---
Providers/Chief Complaint Primary Care Provider: Lianet Hannah MD Chief Complaint: Staff Infections History of Present Illness Karl Martinez is a 66 year old male with history of small cell lung cancer, was admitted last month for management and evaluation of left hemiparesis slurred speech, cranial imaging unremarkable. He was given tPA and monitored in ICU. He had complete resolution of his symptoms, CT scan of abdomen pelvis showed renal infarct, he was put on Xarelto secondary to 2 different areas of infarct, was called in by the ER physician today for positive blood cultures, he was discharged from the ER yesterday when he was sent for evaluation of neutropenia. Patient is under care of Dr. Desai for chemoradiation. He is getting cisplatin/etoposide. Patient was seen in the ER yesterday for neutropenia and hypotension, his blood pressure improved after IV fluids and he was discharged home he was called and by the ER physician because 1 out of 4 cultures are positive with MRSA patient has not noticed any fever, chest pain. Patient is stating mostly after his radiation therapy he gets nauseous and gets couple of episodes of diarrhea. Today he has only eaten 2 cups of pudding his appetite is poor urine is c oncentrated. He does not use oxygen. Review of Systems Const: Reports: chills, body aches and fatigue Eyes: Denies: change in vision ENMT: Denies: throat pain Card: Reports: dyspnea on exertion; Denies: chest pain Resp: Reports: dyspnea GI: Reports: nausea; Denies: abdominal pain : Denies: flank pain Musc: Denies: neck pain Skin/Breast: Denies: rash Neuro: Denies: headache(s) Psych: Denies: anxiety Endo: Denies: polyuria Antoni/Lymph: Denies: easy bruising All/Imm: Denies: urticaria Medications/Allergies Home Medications Medication Instructions Recorded Confirmed Last Taken Type albuterol sulfate 90 mcg/actuation 2 puff inhalation Q6H PRN 12/28/21 02/27/22 01/07/22 Rx aerosol inhaler shortness of breath or wheezing #8.5 grams nebulizers #1 ea 01/02/22 02/27/22 01/07/22 Rx aspirin 81 mg tablet,delayed 81 mg PO QAM 01/07/22 02/27/22 02/26/22 History release oxycodone-acetaminophen 5 mg-325 1 - 2 tab PO .Q4-6H PRN pain 30 01/21/22 02/27/22 02/03/22 Rx mg tablet (Percocet) days #60 tabs prochlorperazine maleate 10 mg 10 mg PO Q4H PRN Mild Nausea #30 01/31/22 02/27/22 Unknown Rx tablet (Compazine) tabs allopurinol 100 mg tablet 100 mg PO BID #60 tabs 02/01/22 02/27/22 02/26/22 Rx ascorbic acid (vitamin C) 1,000 mg 1,000 mg PO QAM 02/04/22 02/27/22 02/26/22 History tablet (Vitamin C) cholecalciferol (vitamin D3) 25 25 mcg PO QAM 02/04/22 02/27/22 02/26/22 History mcg (1,000 unit) tablet (Vitamin D3) cyanocobalamin (vitamin B-12) 1,000 mcg PO QAM 02/04/22 02/27/22 02/26/22 His tory 1,000 mcg tablet (Vitamin B-12) multivitamin 1 tab PO QAM 02/04/22 02/27/22 02/26/22 History umeclidinium 62.5 mcg-vilanterol 1 inh inhalation QAM 02/04/22 02/27/22 02/27/22 History 25 mcg/actuation powdr for inhalation (Anoro Ellipta) lidocaine-prilocaine 2.5 %-2.5 % 1 applic topical .COMPLEX #30 grams 02/06/22 02/27/22 Unknown Rx topical cream rivaroxaban 10 mg tablet (Xarelto) 20 mg PO BEDTIME #30 tabs 02/13/22 02/27/22 02/26/22 Rx gabapentin 300 mg capsule 300 mg PO BEDTIME 30 days #30 caps 02/21/22 02/27/22 02/26/22 Rx nitroglycerin 0.4 mg sublingual 0.4 mg sublingual Q5M PRN Chest 02/21/22 02/27/22 Unknown Rx tablet (Nitrostat) Pain #25 tabs omeprazole 20 mg capsule,delayed 20 mg PO QAM 90 days #90 caps 02/21/22 02/27/22 02/26/22 Rx release tizanidine 2 mg tablet 2 mg PO Q8H PRN muscle spasticity 02/21/22 02/27/22 Unknown Rx #30 tabs oxycodone 5 mg/5 mL oral solution 5 mg (5 mL) PO Q6H PRN pain 2 02/25/22 02/27/22 Unknown Rx weeks #250 mL lidocaine HCl 2 % mucosal solution 5 ml mucous membrane QID PRN pain 02/26/22 02/27/22 Unknown Rx (Lidocaine Viscous) 1 week #80 mL nystatin 100,000 unit/mL oral 5 ml PO TID #200 mL 02/26/22 02/27/22 Unknown Rx suspension atorvastatin 40 mg tablet 40 mg PO BEDTIME 02/27/22 02/27/22 02/26/22 History levofloxacin 750 mg tablet 750 mg PO Q24H 10 days #10 tabs 02/27/22 Unknown Rx Allergies Allergy/AdvReac Type Severity Reaction Status Date / Time Hpqihht-MEJ-MfX Reductase Allergy Unknown Verified 02/27/22 11:23 Inhibitor PFSH Acute PFSH: Medical History Abdominal aortic aneurysm Carpal tunnel syndrome on both sides Chronic back pain Congenital umbilical hernia COPD (chronic obstructive pulmonary disease) Coronary artery disease GERD (gastroesophageal reflux disease) Hypertension Past heart attack Small cell lung cancer, right middle lobe Surgical History History of endovascular stent graft for abdominal aortic aneurysm (AAA) History of heart artery stent S/P rotator cuff repair Family History Family/Other Cancer Father CAD (coronary artery disease) Stroke Brother CAD (coronary artery disease) Brother CAD (coronary artery disease) Diabetes Sister CAD (coronary artery disease) Cancer Chronic kidney disease (CKD) Diabetes Sister Cancer Diabetes Mother Stroke Other Hyperlipidemia Hypertension Psychiatric illness Denies family history of Clotting disorder Dementia Suicide Anesthesia complication Bleeding disorder Lung disease Social History Smoking and tobacco status: former smoker (smoked x 50+ years) Alcohol intake: never Vitals/I&O/Wt Last Vital Signs Temp 98.4 F 02/28/22 20:13 Pulse 87 02/28/22 20:13 Resp 16 02/28/22 20:13 BP 114/77 02/28/22 20:13 Pulse Ox 96 02/28/22 20:13 O2 Del Method 02/28/22 20:13 02/28/22 02/28/22 02/28/22 06:59 14:59 22:59 Intake Total 50 / 50 Balance 50 / 50 Weight last 48 hrs Weight 86.183 kg Physical Exam Narrative: Patient is sitting comfortably in his bed Clinically looks dehydrated Currently on room air S1, S2 sinus tachycardia Abdomen soft No signs of edema Pleasant and cooperative Nonfocal neuro exam Hard of hearing at the bedside No audible stridor or wheezing Bilateral breath sounds slightly diminished right as compared to left No active rhonchi or wheezing Data 02/28/22 20:45 02/28/22 20:45 Micro: Microbiology 02/28/22 20:53 Blood Culture - Preliminary Blood SPECIMEN COLLECTED 02/28/22 20:45 Blood Culture - Preliminary Blood SPECIMEN COLLECTED A&P Assessment and plan (1) Generalized weakness: (2) Neutropenia: (3) Dehydration: (4) Leukopenia: (5) Anemia: Plan Perihilar infiltrate Neutropenia, leukopenia likely chemo radiation therapy related Severity of neutropenia improving Afebrile Sinus tachycardia Blood pressure stable Currently on room air No active signs of sepsis Perihilar infiltrate with increased vascular marking, could be related to underlying cancer, patient is not experiencing cough, fever sputum production, he does get shortness of breath on exertion We will start him on cefepime and vancomycin, check MRSA PCR, in the ER he has received vancomycin and Zosyn Blood culture 1/4 positive for MRSA Check procalcitonin level At this point we are not sure whether this is contamination versus real bacte remia Patient suffers from emesis and diarrhea after radiation therapy, last radiation therapy was on 02/28 He is on anticoagulating agent since his recent stroke for stroke and renal infarct, continue Xarelto Chronic anemia hemoglobin stable Hemodynamically stable Patient is dehydrated we will start him on IV fluids Full code in case of any event to make decision for him Regular diet Neutropenic precautions with contact isolation Attestations Medical Necessity Statement*: Anticipating more than 2 midnights Time Spent in Patient Care: 40 Coding Level of Care Code Acute Inspecting Engineer for [facility] [facility] Diagnoses Generalized weakness R53.1 Neutropenia D70.9 Dehydration E86.0 Leukopenia D72.819 Anemia D64.9
[2022-02-28 22:04] LABS: Add Urine Microscopic? YES; Bilirubin Urine Neg (Negative); Blood Urine 2+ (Negative); Glucose Urine UA Norm (Normal); Ketones Urine Trace (Negative); Leukocyte Esterase Urine Negative (Negative); Nitrate Urine Negative (Negative); Protein Urine Trace (Negative); Urine Appearance Clear (CLEAR); Urine Color Yellow (Yellow); Urobilinogen Urine Norm (Negative); pH Urine 5 (5-7)
[2022-02-28 22:05] LABS: Add Urine Culture? No; Mucus Urine 2+ /hpf; Transitional Epi Cells Urine 0-4 /hpf
[2022-02-28 22:14] VITALS: BP 126/81; PULSE 102; RESP 18; O2SAT 94
[2022-02-28 22:26] VITALS: BMI 30.2
[2022-02-28 22:46] LABS: Influenza A by IFA negative (Negative); Influenza B by IFA negative (Negative); SARS Covid-2 Antigen negative (Negative)
[2022-02-28 23:15] LABS: Procalcitonin 0.15 ng/mL (0-0.5)
[2022-02-28 23:31] VITALS: BP 109/74; PULSE 103; RESP 18; TEMP 37.1; O2SAT 94
[2022-03-01] VITALS (7 sets, daily range): BP systolic 98–120; BP diastolic 62–78; PULSE 83–95; RESP 16–19; TEMP 36.6–37.7; O2SAT 92–97
[2022-03-01 04:35] LABS: Basophils % 0.6 %; Eosinophils % 1.2 %; Hematocrit 26.8 % (42.0-52.0); Lymphocytes # 0.4 10^3/uL (0.8-4.8); Mean Corpuscular HGB Conc 33.6 g/dL (30.0-36.0); Mean Corpuscular Hemoglobin 28.6 pg (28.0-34.0); Mean Corpuscular Volume 85.1 fl (80-94); Mean Platelet Volume 10.7 fL (7.4-10.4); Monocytes # 1.1 10^3/uL (0.2-0.9); Monocytes % 32.7 %; Neutrophils # 1.64 10^3/uL (1.8-7.7); Neutrophils % 50.7 %; Nucleated Red Blood Cells % 0 %; Platelet Count 209 10^3/cmm (130-400); Red Blood Count 3.15 10^6/uL (4.1-5.3); Red Cell Distribution Width 14.6 % (12.1-15.1); White Blood Count 3.2 10^3/uL (4.0-10.0)
[2022-03-01] MEDS: acetaminophen 500 mg Tablet PO (04:35)
[2022-03-01 04:59] LABS: Anion Gap 13.9 (5-19); Blood Urea Nitrogen 15 mg/dL (8-23); C Reactive Protein 177.1 mg/L (0.0-4.9); Calcium 8.2 mg/dL (8.5-10.5); Carbon Dioxide 23 mmol/L (22-29); Chloride 103 mmol/L (98-107); Glomerular Filtration Rate 112.5 mL/min (90-130); Glucose 94 mg/dL (65-115); Magnesium 1.8 mg/dL (1.7-2.3); Osmolality Calculated 283 mOsm/kg (285-295); Phosphorus 2.7 mg/dL (2.5-4.5); Potassium 3.9 mmol/L (3.5-5.1); Sodium 136 mmol/L (136-145)
[2022-03-01] MEDS: aspirin 81 mg EC Tablet PO (05:33)
[2022-03-01] MEDS: pantoprazole DR 40 mg Tablet PO (05:33)
[2022-03-01] MEDS: nystatin 100,000 unit/mL UDC 5 mL 500000 UNIT PO ×3 (10:30→20:04)
[2022-03-01] MEDS: allopurinol 100 mg Tablet PO ×2 (10:30→18:20)
[2022-03-01] MEDS: vancomycin 1,500 MG/300 ML PIGGYBACK 200 MG IV ×2 (10:55→21:26)
--- NOTE | 2022-03-01 11:15 | USCV_ITS ---
Karl Martinez Age: 66 Gender: M : 1955 Exam Date: 03/01/2022 14:53 Ordering Phys: Garth Crowder MD Technologist: KYRA Exam Location: [facility] [place] Indication: stroke BP: 99 / 64 HR: 75 Rhythm: Sinus Technical Quality: Adequate MEASUREMENTS (Male / Female) Normal Values 2D ECHO LV Diastolic Diameter PLAX 5.7 cm 4.2 - 5.9 / 3.9 - 5.3 cm LV Systolic Diameter PLAX 3.3 cm IVS Diastolic Thickness 0.5 cm 0.6 - 1.0 / 0.6 - 0.9 cm IVS Systolic Thickness 0.8 cm LVPW Diastolic Thickness 0.6 cm 0.6 - 1.0 / 0.6 - 0.9 cm LVPW Systolic Thickness 0.9 cm LVOT Diameter 2.4 cm LV Ejection Fraction 2D Teich 72.4 % LV Ejection Fraction MOD 2C 59.9 % LV Ejection Fraction 2C AL 59.5 % LA Diameter 3.6 cm M-MODE Aortic Annulus Diameter 3.6 cm LA Ao Ratio MM 1.2 MV E Point Septal Separation 0.0 cm DOPPLER AV Peak Velocity 140.0 cm/s LVOT Peak Velocity 91.0 cm/s AV Area Cont Eq vti 2.6 cm squared AV Area Cont Eq pk 2.9 cm squared MV Area PHT 3.2 cm squared Mitral E to A Ratio 0.8 MV E' Velocity 46.0 cm/s Mitral E to MV E' Ratio 9.2 Mitral E to LV E' Lateral Ratio 7.8 Mitral E to LV E' Septal Ratio 11.4 TR Peak Velocity 194.0 cm/s TR Peak Gradient 15.1 mmHg TV Peak E Velocity 84.0 cm/s PV Peak Velocity 110.0 cm/s FINDINGS Left Ventricle Normal left ventricular size, systolic function and wall thickness, with no regional wall motion abnormalities. EF 58 %. Contrast utilized for this study.Grade I/IV diastolic dysfunction (abnormal relaxation filling pattern), normal to mildly elevated filling pressures. Right Ventricle The right ventricle is normal in size and function. Right Atrium The right atrium is normal in size. Left Atrium The left atrium is normal in size. Mitral Valve Structurally normal mitral valve without significant stenosis or prolapse. There is no mitral regurgitation. Aortic Valve Structurally normal aortic valve without significant sclerosis or stenosis. There is trace aortic regurgitation. Tricuspid Valve Structurally normal tricuspid valve without significant stenosis or regurgitation. Pulmonary artery systolic pressure is normal. Pulmonic Valve Structurally normal pulmonic valve without significant stenosis. There is trace pulmonic regurgitation. Pericardium Normal pericardium without effusion. Aorta Normal ascending aorta dimension. IVC The inferior vena cava appears normal. CONCLUSIONS Normal left ventricular size, systolic function and wall thickness, with no regional wall motion abnormalities. EF 58 %. Contrast utilized for this study.Grade I/IV diastolic dysfunction (abnormal relaxation filling pattern), normal to mildly elevated filling pressures. Gabriele Garcia MD (Electronically Signed) Final Date: 03 March 2022 14:10 S
[2022-03-01 11:54] LABS: Iron 20 ug/dL (59-158); Percent Saturation 11.5 % (20-50); Total Iron Binding Capacity 173 mcg/dl; Unsaturated Iron Binding 153 ug/dL (112-347)
[2022-03-01 12:32] LABS: Vitamin B12 > 2000 pg/mL (232-1245)
[2022-03-01] MEDS: cefepime 1,000 MG in sodium chloride 0.9% (plus) 50 ML 100 MG IV ×2 (13:00→20:04)
--- NOTE | 2022-03-01 15:41 | P.PN_ITS ---
Subjective Subjective: Admitted overnight. H&P and labs appreciated. Seen with family at bedside. Patient is awake and alert sitting up in chair. Denies any nausea, vomiting, headache. Remains on room air. Blood pressure stable. Port site looks healthy without any drainage. Event monitor in place. Vitals/I&O/Wt Last Vital Signs Temp 97.8 F 03/01/22 07:00 Pulse 86 03/01/22 07:52 Resp 16 03/01/22 07:52 BP 99/64 03/01/22 07:00 Pulse Ox 97 03/01/22 07:52 O2 Del Method 03/01/22 07:52 03/01/22 03/01/22 03/01/22 06:59 14:59 22:59 Intake Total 600 / 900 350 / 350 Balance 600 / 900 350 / 350 Weight last 48 hrs Weight 87.742 kg Weight 86.183 kg Physical Exam Narrative: General: No acute distress, AO x3, on room air HEENT: PERRLA, pupils bilaterally equal and reactive Chest: Bilateral bronchial breath sounds, occasional rhonchi all over the lung kiser, coarse crackles present in right parasternal space CVS: S1-S2 regular, no murmurs, no tachycardia, no gallops, no rubs Abdomen: Soft, nontender, no organomegaly, bowel sounds present, morbidly obese Neuro: No focal deficits, no facial deformity, AO x3, power 5/5 in all limbs Data 03/01/22 04:20 03/01/22 04:20 Micro: Microbiology 02/28/22 20:53 Blood Culture - Preliminary Blood SPECIMEN COLLECTED 02/28/22 20:45 Blood Culture - Preliminary Blood SPECIMEN COLLECTED A&P Assessment and plan (1) Bacteremia due to Staphylococcus aureus: Blood cultures from 02/27 positive for Staph aureus. MRSA not sure for now as sensitivities still awaited. Repeat blood cultures sent on 02/28. Check MRSA swab. For now continue with vancomycin and Zosyn. Will de-escalate as per culture sensitivities. Check echocardiogram. If repeat blood cultures are positive will need to discuss about removing the port for possible port infection. Will consult ID for further recommendation. (2) Neutropenia: On chemotherapy for small cell lung cancer. Seems to be resolving. Neutropenia seems to resolve today. Continue to monitor. Maintain neutropenic precautions for 1 more day. (3) Small cell lung cancer, right middle lobe: Follows up with Dr. Desai as an outpatient. Under going chemoradiation. Maintained on room air currently. (4) Atherosclerosis of coronary artery of [place] heart without angina pectoris: No chest pain. Continue with home dose of aspirin, statin. Qualifiers: Coronary Disease-Associated Artery/Lesion type: [place] artery Qualified Code(s): I25.10 - Atherosclerotic heart disease of [place] coronary artery without angina pectoris (5) Renal infarct: (6) Left acute arterial ischemic stroke, MCA (middle cerebral artery): Recent. Most likely thromboembolic given presence of renal infarct as well. No residual effects. Continue with Xarelto 20 mg daily. (7) Port-A-Cath in place: Plan Full code. Cardiac diet. Xarelto will suffice for DVT prophylaxis. Protonix for PUD prophylaxis Attestations Medical Necessity Statement*: Requires further hospitalization for management of Staphylococcus bacteremia, resolving neutropenia in a patient who is postchemotherapy for small lung cell cancer Time Spent in Patient Care: Greater than 35 minutes Coding Level of Care Code Acute Green Marketing Specialist for [facility] Diagnoses Bacteremia due to Staphylococcus aureus R78.81; B95.61 Neutropenia D70.9 Small cell lung cancer, right middle lobe C34.2 Atherosclerosis of coronary artery of [place] heart without angina pectoris I25.10 Coronary Disease-Associated Artery/Lesion type: [place] artery Renal infarct N28.0 Left acute arterial ischemic stroke, MCA (middle cerebral artery) I63.512 Port-A-Cath in place Z95.828
[2022-03-01] MEDS: perflutren protein-a microsphr 0.22 mg/mL SDV 3 mL IV (15:54)
--- NOTE | 2022-03-01 19:45 | PM.CONSULT ---
Providers/Reason For Consult Consulting Physician/Specialty*: Yuki Soto MD/ Infectious disease Reason for Consult*: Staph bacteremia Requesting Physician: Garth Crowder MD Attending Physician: Garth Crowder MD Primary Care Provider: Lianet Hannah MD History of Present Illness History of Present Illness Karl Martinez is a 66 year old male with lung cancer, right suprahilar mass invading the mediastinum and prominent subcarinal lymph nodes, currently on chemoradiation with cisplatin etoposide, last dose February 12, 2022. His course has been complicated by recent CVA in January 2022. He was recently seen in the medical oncology office on February 27, 2022 where he was found to be neutropenic with a white blood cell count of 1.1 ANC of 160 and had a fever. He was also noted to be tachycardic at that time. Sent him to the emergency room Where he was noted to be hypotensive transiently. This improved with fluids. Neutropenic fever work-up was done and patient was discharged home. He was called back when his blood cultures returned positive for Staph aureus. His T-max during this course of admission is 99.9 Fahrenheit. Neutropenia has since resolved. His Mediport was inserted on January 24, 2022. He has not noticed any problems with the port recently. Denies any symptoms of cough dyspnea chest pain abdominal pain nausea vomiting or diarrhea. Review of records show that he was admitted here between 02 04-02 06 with left hemiparesis and slurred speech. He received tPA for acute stroke. Interestingly he was also noted to have left renal infarct after he complained of abdominal pain. Secondary to 2 different areas of infarct anticoagulation was started with Xarelto. He was supposed to get a RADHA as an outpatient by cardiology and also an event monitor, however this is yet to happen. Blood cultures are not available from this admission. A TTE obtained on 02/05/2022 had shown LVEF of 64% possible bicuspid aortic valve. Review of Systems General: Reports: 10 or more systems reviewed and unremarkable except in HPI and below Const: Denies: fever(s), chills or body aches Eyes: Denies: change in vision, blurry vision or photophobia ENMT: Reports: hoarseness; Denies: throat pain, enlarged tonsils, odynophagia or nasal congestion Card: Denies: chest pain, palpitations, irregular heart rhythm, edema, swelling of feet/ankles, lightheadedness, pre-syncope, dyspnea on exertion or orthopnea Resp: Denies: dyspnea, productive cough, non-productive cough, wheezing, stridor, pain on inspiration, change in phlegm color, hemoptysis or chest congestion GI: Denies: abdominal pain, nausea, vomiting, hematemesis, coffee ground emesis, dysphagia, heartburn, diarrhea, constipation, GI cramping, change in stool character, hematochezia or melena : Denies: flank pain, dysuria, urinary frequency, urinary urgency, urinary hesitancy or hematuria Musc: Denies: neck pain, back pain, extremity pain, joint swelling, joint warmth or deformity Neuro: Denies: headache(s), numbness in extremities, weakness in extremities, sensory changes, difficulty walking, frequent falls, dizziness, vertigo, behavioral changes, Slurred speech present or seizure-like activity Psych: Denies: anxiety, depression, suicidal ideation or homicidal ideation Endo: Denies: polyuria, polydipsia, tired all the time, cold intolerance or hot flashes Antoni/Lymph: Denies: easy bruising or easy bleeding Medications/Allergies Home Medications Medication Instructions Recorded Confirmed Last Taken Type albuterol sulfate 90 mcg/actuation 2 puff inhalation Q6H PRN 12/28/21 03/01/22 01/07/22 Rx aerosol inhaler shortness of breath or wheezing #8.5 grams nebulizers #1 ea 01/02/22 03/01/22 01/07/22 Rx aspirin 81 mg tablet,delayed 81 mg PO QAM 01/07/22 03/01/22 02/26/22 History release oxycodone-acetaminophen 5 mg-325 1 - 2 tab PO .Q4-6H PRN pain 30 01/21/22 03/01/22 02/03/22 Rx mg tablet (Percocet) days #60 tabs prochlorperazine maleate 10 mg 10 mg PO Q4H PRN Mild Nausea #30 01/31/22 03/01/22 Unknown Rx tablet (Compazine) tabs allopurinol 100 mg tablet 100 mg PO BID #60 tabs 02/01/22 03/01/22 02/26/22 Rx ascorbic acid (vitamin C) 1,000 mg 1,000 mg PO QAM 02/04/22 03/01/22 02/26/22 History tablet (Vitamin C) cholecalciferol (vitamin D3) 25 25 mcg PO QAM 02/04/22 03/01/22 02/26/22 History mcg (1,000 unit) tablet (Vitamin D3) cyanocobalamin (vitamin B-12) 1,000 mcg PO QAM 02/04/22 03/01/22 02/26/22 History 1,000 mcg tablet (Vitamin B-12) multivitamin 1 tab PO QAM 02/04/22 03/01/22 02/26/22 History umeclidinium 62.5 mcg-vilanterol 1 inh inhalation QAM 02/04/22 03/01/22 02/27/22 History 25 mcg/actuation powdr for inhalation (Anoro Ellipta) lidocaine-prilocaine 2.5 %-2.5 % 1 applic topical .COMPLEX #30 grams 02/06/22 03/01/22 Unknown Rx topical cream rivaroxaban 10 mg tablet (Xarelto) 20 mg PO BEDTIME #30 tabs 02/13/22 03/01/22 02/26/22 Rx gabapentin 300 mg capsule 300 mg PO BEDTIME 30 days #30 caps 02/21/22 03/01/22 02/26/22 Rx nitroglycerin 0.4 mg sublingual 0.4 mg sublingual Q5M PRN Chest 02/21/22 03/01/22 Unknown Rx tablet (Nitrostat) Pain #25 tabs omeprazole 20 mg capsule,delayed 20 mg PO QAM 90 days #90 caps 02/21/22 03/01/22 02/26/22 Rx release tizanidine 2 mg tablet 2 mg PO Q8H PRN muscle spasticity 02/21/22 03/01/22 Unknown Rx #30 tabs oxycodone 5 mg/5 mL oral solution 5 mg (5 mL) PO Q6H PRN pain 2 02/25/22 03/01/22 Unknown Rx weeks #250 mL lidocaine HCl 2 % mucosal solution 5 ml mucous membrane QID PRN pain 02/26/22 03/01/22 Unknown Rx (Lidocaine Viscous) 1 week #80 mL nystatin 100,000 unit/mL oral 5 ml PO TID #200 mL 02/26/22 03/01/22 Unknown Rx suspension atorvastatin 40 mg tablet 40 mg PO BEDTIME 02/27/22 03/01/22 02/26/22 History levofloxacin 750 mg tablet 750 mg PO Q24H 10 days #10 tabs 02/27/22 03/01/22 Unknown Rx Allergies Allergy/AdvReac Type Severity Reaction Status Date / Time [id number] Reductase Allergy Unknown Verified 02/27/22 11:23 Inhibitor Current Medications Generic Name Dose Route Start Last Admin Trade Name [place] PRN Reason Stop Dose Admin Acetaminophen 500 mg 02/28/22 22:25 03/01/22 04:35 Acetaminophen 500 Mg Tablet PO 500 mg Q4H PRN Administration fever Allopurinol 100 mg 03/01/22 09:00 03/01/22 18:20 Allopurinol 100 Mg Tablet PO 100 mg BID DESTINY Administration Aspirin 81 mg 03/01/22 06:00 03/01/22 05:33 Aspirin 81 Mg Ec Tablet PO 81 mg QAM DESTINY Administration Cefepime HCl 1,000 mg/ Sodium 50 mls @ 100 mls/hr 03/01/22 09:00 03/01/22 13:38 Chloride IV Infused Q12H DESTINY Infusion Protocol Vancomycin/PEG/NADA/Lysine/Water 1,500 mg in 300 mls @ 200 mls/hr 03/01/22 09:00 03/01/22 13:04 Vancocin IV Infused Q12H DESTINY Infusion Nystatin 500,000 unit 03/01/22 09:00 03/01/22 16:39 Nystatin 100,000 Unit/Ml Udc 5 Ml PO 500,000 unit TID DESTINY Administration Pantoprazole Sodium 40 mg 03/01/22 06:00 03/01/22 05:[address] 40 Mg Tablet PO 40 mg QAM DESTINY Administration Senna/Docusate Sodium 1 tab 03/01/22 09:00 03/01/22 10:34 Sennosides-Docusate Tablet PO Not Given DAILY DESTINY PFSH Acute PFSH: Medical History Abdominal aortic aneurysm Carpal tunnel syndrome on both sides Chronic back pain Congenital umbilical hernia COPD (chronic obstructive pulmonary disease) Coronary artery disease GERD (gastroesophageal reflux disease) Hypertension Past heart attack Port-A-Cath in place Small cell lung cancer, right middle lobe Surgical History History of bilateral carpal tunnel release History of endovascular stent graft for abdominal aortic aneurysm (AAA) History of heart artery stent History of tonsillectomy and adenoidectomy Hx of umbilical hernia repair S/P AAA repair using bifurcation graft S/P rotator cuff repair Family History Family/Other Cancer Father CAD (coronary artery disease) Stroke Brother CAD (coronary artery disease) Brother CAD (coronary artery disease) Diabetes Sister CAD (coronary artery disease) Cancer Chronic kidney disease (CKD) Diabetes Sister Cancer Diabetes Mother Stroke Other Hyperlipidemia Hypertension Psychiatric illness Denies family history of Clotting disorder Dementia Suicide Anesthesia complication Bleeding disorder Lung disease Social History Smoking and tobacco status: former smoker (smoked x 50+ years) Alcohol intake: never Vitals/I&O/Wt Last Vital Signs Temp 98.5 F 03/01/22 19:42 Pulse 95 03/01/22 19:42 Resp 17 03/01/22 19:42 BP 113/73 03/01/22 19:42 Pulse Ox 92 03/01/22 19:42 O2 Del Method 03/01/22 07:52 03/01/22 03/01/22 03/01/22 06:59 14:59 22:59 Intake Total 600 / 900 710 / 710 Balance 600 / 900 710 / 710 Weight last 48 hrs Weight 87.742 kg Weight 86.183 kg Physical Exam Narrative: General: No acute distress, AO x3 HEENT: PERRLA, pupils bilaterally equal and reactive, pallors not present Chest: Normal vesicular breath sounds, no added sounds, equal good air entry bilaterally CVS: S1-S2 regular, no murmurs, no tachycardia, no gallops, no rubs Abdomen: Soft, nontender, no organomegaly, bowel sounds present Neuro: No focal deficits, no facial deformity, AO x3, power 5/5 in all limbs Data 03/01/22 04:20 03/01/22 04:20 Other Labs: PBCX: 1 of 4 : 02/27: Staph aureus, pending susceptibility 02/28: PBCX: pending Micro: Microbiology 02/28/22 22:38 MRSA Culture - Final Nose 02/28/22 20:53 Blood Culture - Preliminary Blood SPECIMEN COLLECTED 02/28/22 20:45 Blood Culture - Preliminary Blood SPECIMEN COLLECTED A&P Assessment and plan (1) Bacteremia due to Staphylococcus aureus: (2) Port-A-Cath in place: Plan Patient with lung cancer, port placement in early January, presenting today with recent neutropenic fever and blood culture positive for staph aureus upon evaluation on February 27, 2022. Repeat blood cultures from February 28, 2022 are pending. Recommend to obtain port cultures additionally. Given patient's recent history of infarct in 2 separate areas including abdomen and head with presence of a bicuspid aortic valve, suspicious for an endovascular infection which may be related to port infection versus endocarditis. Patient was planned for a RADHA on last admit, would recommend to complete this admission as this will additionally help rule out endocarditis conclusively. Based on clearance of blood cultures, echo findings and port cultures will likely need to decide if port needs to be removed. Can continue cefepime and vancomycin for now, will narrow antibiotics once susceptibilities are obtained. 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
[2022-03-01] MEDS: rivaroxaban 10 mg Tablet 20 MG PO (20:04)
[2022-03-01] MEDS: gabapentin 300 mg Capsule PO (20:04)
[2022-03-02 04:00] VITALS: BP 103/64; PULSE 84; RESP 17; TEMP 36.9; O2SAT 95
[2022-03-02 04:30] LABS: Basophils % 0.6 %; Eosinophils % 1.2 %; Hemoglobin 8.4 g/dL (11.7-16.6); Lymphocytes # 0.4 10^3/uL (0.8-4.8); Lymphocytes % 12.6 %; Mean Corpuscular HGB Conc 32.3 g/dL (30.0-36.0); Mean Corpuscular Hemoglobin 27.9 pg (28.0-34.0); Mean Corpuscular Volume 86.4 fl (80-94); Mean Platelet Volume 10.8 fL (7.4-10.4); Monocytes % 29.5 %; Neutrophils # 1.68 10^3/uL (1.8-7.7); Neutrophils % 51.8 %; Nucleated Red Blood Cells % 0 %; Platelet Count 243 10^3/cmm (130-400); Red Blood Count 3.01 10^6/uL (4.1-5.3); Red Cell Distribution Width 14.6 % (12.1-15.1); White Blood Count 3.3 10^3/uL (4.0-10.0)
[2022-03-02 05:17] LABS: Estmated Average Glucose 108; Hemoglobin A1C 5.4 % (4.0-6.0)
[2022-03-02 05:29] LABS: Albumin Level 2.9 g/dL (3.5-5.2); Aspartate Amino Transferase 18 U/L (0-40); Blood Urea Nitrogen 13 mg/dL (8-23); Calcium 8.9 mg/dL (8.5-10.5); Carbon Dioxide 22 mmol/L (22-29); Globulin 3.3 g/dL (1.3-4.6); Glomerular Filtration Rate 112.5 mL/min (90-130); Glucose 85 mg/dL (65-115); Potassium 3.4 mmol/L (3.5-5.1); Total Bilirubin 0.4 mg/dL (0.15-1.2); Total Protein 6.2 g/dL (6.6-8.7)
[2022-03-02 05:31] LABS: Alanine Aminotransferase 16 U/L (0-41); Alkaline Phosphatase 71 U/L (40-130)
[2022-03-02 05:33] LABS: Folate Level 18.4 ng/mL (4.5-32.2)
[2022-03-02 05:51] LABS: HDL Cholesterol 27 mg/dL (60-100); LDL Cholesterol Calculated 51 mg/dL (50-129); Thyroid Stimulating Hormone 0.48 uIU/mL (0.27-4.20); Triglycerides 79 mg/dL (0-150); VLDL Cholestrol Calculation 16 mg/dL (0-30)
[2022-03-02 05:53] LABS: Chol HDL Ratio 3.48 mg/dL (1.0-5.00); Cholesterol 94 mg/dL (0-200)
[2022-03-02] MEDS: aspirin 81 mg EC Tablet PO (06:12)
[2022-03-02] MEDS: pantoprazole DR 40 mg Tablet PO (06:12)
[2022-03-02 07:52] VITALS: PULSE 79; RESP 16; O2SAT 92
[2022-03-02 08:00] VITALS: BP 109/73; PULSE 87; RESP 17; TEMP 36.9; O2SAT 95
[2022-03-02] MEDS: cefepime 1,000 MG in sodium chloride 0.9% (plus) 50 ML 100 MG IV ×2 (10:24→20:42)
[2022-03-02] MEDS: nystatin 100,000 unit/mL UDC 5 mL 500000 UNIT PO ×3 (10:24→20:42)
[2022-03-02] MEDS: allopurinol 100 mg Tablet PO ×2 (10:25→18:12)
[2022-03-02] MEDS: vancomycin 1,500 MG/300 ML PIGGYBACK 200 MG IV ×2 (11:16→21:47)
[2022-03-02 12:00] VITALS: BP 102/66; PULSE 82; RESP 17; TEMP 36.6; O2SAT 96
[2022-03-02 12:08] LABS: Anion Gap 15.4 (5-19); Chloride 101 mmol/L (98-107); Osmolality Calculated 279 mOsm/kg (285-295); Sodium 135 mmol/L (136-145)
[2022-03-02] MEDS: lidocaine 2% viscous 1.667 ML, diphenhydrAMINE oral liq 4.165 MG, aluminum-mag hydrox-s... MUCOUS MEM ×2 (13:34→18:11)
--- NOTE | 2022-03-02 15:36 | PM.PN ---
Subjective Subjective: No acute events continues to remain on room air. Seen with family at bedside. Sitting in chair. Continues to have few episodes of diarrhea. T-max in last 24 hours 99.9 Fahrenheit. Vitals/I&O/Wt Last Vital Signs Temp 97.8 F 03/02/22 12:00 Pulse 82 03/02/22 12:00 Resp 17 03/02/22 12:00 BP 102/66 03/02/22 12:00 Pulse Ox 96 03/02/22 12:00 O2 Del Method 03/02/22 08:00 03/02/22 03/02/22 03/02/22 06:59 14:59 22:59 Intake Total 780 / 1780 510 / 510 Balance 780 / 1780 510 / 510 Weight last 48 hrs Weight 86.682 kg Weight 87.742 kg Weight 86.183 kg Physical Exam Narrative: General: No acute distress, AO x3, on room air HEENT: PERRLA, pupils bilaterally equal and reactive Chest: Bilateral bronchial breath sounds, occasional rhonchi all over the lung kiser, coarse crackles present in right parasternal space CVS: S1-S2 regular, no murmurs, no tachycardia, no gallops, no rubs Abdomen: Soft, nontender, no organomegaly, bowel sounds present, morbidly obese Neuro: No focal deficits, no facial deformity, AO x3, power 5/5 in all limbs Data 03/02/22 04:13 03/02/22 04:13 Micro: Microbiology 03/02/22 02:00 Blood Culture - Preliminary Blood SPECIMEN COLLECTED 02/28/22 20:53 Blood Culture - Preliminary Blood NEGATIVE TO DATE 02/28/22 20:45 Blood Culture - Preliminary Blood NEGATIVE TO DATE 02/28/22 22:38 MRSA Culture - Final Nose A&P Assessment and plan (1) Bacteremia due to Staphylococcus aureus: Blood cultures from 02/27 positive for Staph aureus. MRSA not sure for now as sensitivities still awaited. Repeat blood cultures sent on 02/28. Repeat cultures through port sent. MRSA swab positive. Appreciate ID recommendations. For now continue with vancomycin and cefepime. Will de-escalate as per culture sensitivities. Echocardiogram showed EF 64% with mild LVH, mild mitral annular calcification, possible bicuspid aortic valve. Patient will need infective endocarditis work-up with RADHA as per ID recommendations. If repeat blood cultures are positive will need to discuss about removing the port for possible port infection. (2) Neutropenia: On chemotherapy for small cell lung cancer. Seems to be resolving. Neutropenia seems to resolve today. Continue to monitor. Remove isolation as per neutropenic precautions. (3) Small cell lung cancer, right middle lobe: Follows up with Dr. Desai as an outpatient. Under going chemoradiation. Maintained on room air currently. (4) Atherosclerosis of coronary artery of [place] heart without angina pectoris: No chest pain. Continue with home dose of aspirin, statin. Qualifiers: Coronary Disease-Associated Artery/Lesion type: [place] artery Qualified Code(s): I25.10 - Atherosclerotic heart disease of [place] coronary artery without angina pectoris (5) Renal infarct: (6) Left acute arterial ischemic stroke, MCA (middle cerebral artery): Recent. Most likely thromboembolic given presence of renal infarct as well. No residual effects. Continue with Xarelto 20 mg daily. (7) Port-A-Cath in place: (8) Oral thrush: Extensive. Continue with nystatin swish and swallow. Continue with Magic mouthwash. Patient currently is okay with regular cardiac diet. Plan Full code. Cardiac diet. Xarelto will suffice for DVT prophylaxis. 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
[2022-03-02 16:00] VITALS: BP 110/76; PULSE 77; RESP 17; TEMP 36.8; O2SAT 92
--- NOTE | 2022-03-02 17:58 | PM.PN ---
Subjective Subjective: Infectious disease progress note no new complaints , awaiting cx Vitals/I&O/Wt Last Vital Signs Temp 97.8 F 03/02/22 12:00 Pulse 82 03/02/22 12:00 Resp 17 03/02/22 12:00 BP 102/66 03/02/22 12:00 Pulse Ox 96 03/02/22 12:00 O2 Del Method 03/02/22 08:00 03/02/22 03/02/22 03/02/22 06:59 14:59 22:59 Intake Total 780 / 1780 510 / 510 Balance 780 / 1780 510 / 510 Weight last 48 hrs Weight 86.682 kg Weight 87.742 kg Weight 86.183 kg Physical Exam Narrative: General: No acute distress, AO x3 HEENT: PERRLA, pupils bilaterally equal and reactive, pallors not present Chest: Normal vesicular breath sounds, no added sounds, equal good air entry bilaterally CVS: S1-S2 regular, no murmurs, no tachycardia, no gallops, no rubs Abdomen: Soft, nontender, no organomegaly, bowel sounds present Neuro: No focal deficits, no facial deformity, AO x3, power 5/5 in all limbs Data 03/02/22 04:13 03/02/22 04:13 Micro: Microbiology 03/02/22 02:00 Blood Culture - Preliminary Blood SPECIMEN COLLECTED 02/28/22 20:53 Blood Culture - Preliminary Blood NEGATIVE TO DATE 02/28/22 20:45 Blood Culture - Preliminary Blood NEGATIVE TO DATE 02/28/22 22:38 MRSA Culture - Final Nose A&P Assessment and plan (1) Bacteremia due to Staphylococcus aureus: (2) Port-A-Cath in place: Plan Patient with lung cancer, port placement in early January, presenting today with recent neutropenic fever and blood culture positive for staph aureus upon evaluation on February 27, 2022. Repeat blood cultures from February 28, 2022 are pending. Recommend to obtain port cultures additionally. Given patient's recent history of infarct in 2 separate areas including abdomen and head with presence of a bicuspid aortic valve, suspicious for an endovascular infection which may be related to port infection versus endocarditis. Patient was planned for a RADHA on last admit, would recommend to complete this admission as this will additionally help rule out endocarditis conclusively. Based on clearance of blood cultures, echo findings and port cultures will likely need to decide if port needs to be removed. Can continue cefepime and vancomycin for now, will narrow antibiotics once susceptibilities are obtained. 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
[2022-03-02] MEDS: potassium chloride ER 20 mEq Tablet 40 MEQ PO (18:12)
[2022-03-02 20:00] VITALS: BP 101/67; PULSE 85; PULSE 90; RESP 17; TEMP 36.9; O2SAT 93; O2SAT 95
[2022-03-02] MEDS: rivaroxaban 10 mg Tablet 20 MG PO (20:42)
[2022-03-02] MEDS: gabapentin 300 mg Capsule PO (20:42)
[2022-03-02 21:20] LABS: Vancomycin Trough 15.7 ug/mL (10-15)
[2022-03-03] VITALS (7 sets, daily range): BP systolic 91–99; BP diastolic 52–66; PULSE 82–88; RESP 16–18; TEMP 36.5–36.9; O2SAT 91–97
[2022-03-03 04:08] LABS: Basophils % 0.6 %; Eosinophils % 1.1 %; Hematocrit 26.2 % (42.0-52.0); Hemoglobin 8.5 g/dL (11.7-16.6); Lymphocytes # 0.7 10^3/uL (0.8-4.8); Lymphocytes % 18.5 %; Mean Corpuscular HGB Conc 32.4 g/dL (30.0-36.0); Mean Corpuscular Volume 86.2 fl (80-94); Mean Platelet Volume 10.6 fL (7.4-10.4); Monocytes # 0.9 10^3/uL (0.2-0.9); Monocytes % 25.9 %; Neutrophils # 1.73 10^3/uL (1.8-7.7); Neutrophils % 47.6 %; Nucleated Red Blood Cells % 0 %; Platelet Count 348 10^3/cmm (130-400); Red Blood Count 3.04 10^6/uL (4.1-5.3); Red Cell Distribution Width 14.8 % (12.1-15.1); White Blood Count 3.6 10^3/uL (4.0-10.0)
[2022-03-03 04:33] LABS: Alanine Aminotransferase 18 U/L (0-41); Albumin Level 3.3 g/dL (3.5-5.2); Alkaline Phosphatase 71 U/L (40-130); Anion Gap 15.1 (5-19); Aspartate Amino Transferase 21 U/L (0-40); Blood Urea Nitrogen 12 mg/dL (8-23); Calcium 9.1 mg/dL (8.5-10.5); Carbon Dioxide 21 mmol/L (22-29); Chloride 100 mmol/L (98-107); Globulin 2.9 g/dL (1.3-4.6); Glomerular Filtration Rate 112.5 mL/min (90-130); Glucose 87 mg/dL (65-115); Osmolality Calculated 273 mOsm/kg (285-295); Potassium 4.1 mmol/L (3.5-5.1); Sodium 132 mmol/L (136-145); Total Bilirubin 0.4 mg/dL (0.15-1.2); Total Protein 6.2 g/dL (6.6-8.7)
[2022-03-03 04:52] LABS: Slide Review Slide Review Perform
[2022-03-03] MEDS: aspirin 81 mg EC Tablet PO (05:05)
[2022-03-03] MEDS: pantoprazole DR 40 mg Tablet PO (05:06)
[2022-03-03] MEDS: cefepime 1,000 MG in sodium chloride 0.9% (plus) 50 ML 100 MG IV (08:37)
[2022-03-03] MEDS: lidocaine 2% viscous 1.667 ML, diphenhydrAMINE oral liq 4.165 MG, aluminum-mag hydrox-s... MUCOUS MEM ×2 (08:37→17:27)
[2022-03-03] MEDS: allopurinol 100 mg Tablet PO ×2 (08:37→17:27)
[2022-03-03] MEDS: nystatin 100,000 unit/mL UDC 5 mL 500000 UNIT PO ×3 (08:37→20:34)
--- NOTE | 2022-03-03 09:28 | PC.SOCIAL ---
IMM update Imm updated with patient at bedside. Copy of page 2 provided. Patient verbalized understanding. Copy in chart initialed, dated and timed.
[2022-03-03] MEDS: vancomycin 1,500 MG/300 ML PIGGYBACK 200 MG IV ×2 (09:36→20:34)
--- NOTE | 2022-03-03 14:37 | P.PN_ITS ---
Subjective Subjective: No acute events overnight. Patient denies any nausea, vomiting, headache. Seen sitting up in chair. Denies any new complaints. Vitals/I&O/Wt Last Vital Signs Temp 97.7 F 03/03/22 11:25 Pulse 83 03/03/22 11:25 Resp 16 03/03/22 11:25 BP 98/66 03/03/22 11:25 Pulse Ox 97 03/03/22 11:25 O2 Del Method 03/03/22 11:25 03/02/22 03/03/22 03/03/22 22:59 06:59 14:59 Intake Total 520 / 1030 300 / 1330 710 / 710 Balance 520 / 1030 300 / 1330 710 / 710 Weight last 48 hrs Weight 86.682 kg Physical Exam Narrative: General: No acute distress, AO x3, on room air HEENT: PERRLA, pupils bilaterally equal and reactive Chest: Bilateral bronchial breath sounds, occasional rhonchi all over the lung kiser, coarse crackles present in right parasternal space CVS: S1-S2 regular, no murmurs, no tachycardia, no gallops, no rubs Abdomen: Soft, nontender, no organomegaly, bowel sounds present, morbidly obese Neuro: No focal deficits, no facial deformity, AO x3, power 5/5 in all limbs Data 03/03/22 03:20 03/03/22 03:26 Micro: Microbiology 03/02/22 02:00 Blood Culture - Preliminary Blood NEGATIVE TO DATE A&P Assessment and plan (1) Bacteremia due to Staphylococcus aureus: Blood cultures from 02/27 positive for Staph aureus. Culture ID today changed to Staph hominis. As per micro tech staff aureus read was by mistake. Care discussed in detail with ID. For now we will continue to follow cultures sent during the hospitalization. Most likely if blood cultures remain negative patient will not need any further treatment. For now we will continue with IV antibiotics. Will DC cefepime and continue vancomycin. Will hold off on RADHA for now. Appreciate ID recommendations. For now continue with vancomycin and cefepime. (2) Neutropenia: On chemotherapy for small cell lung cancer. Seems to be resolving. Neutropenia seems to resolve today. Continue to monitor. Remove isolation as per neutropenic precautions. (3) Small cell lung cancer, right middle lobe: Follows up with Dr. Desai as an outpatient. Under going chemoradiation. Maintained on room air currently. Will reach out to radiation team tomorrow for therapy on Friday. If blood cultures come back negative patient can most likely get chemotherapy as well. (4) Atherosclerosis of coronary artery of [place] heart without angina pectoris: No chest pain. Continue with home dose of aspirin, statin. Qualifiers: Coronary Disease-Associated Artery/Lesion type: [place] artery Qualified Code(s): I25.10 - Atherosclerotic heart disease of [place] coronary artery without angina pectoris (5) Renal infarct: (6) Left acute arterial ischemic stroke, MCA (middle cerebral artery): Recent. Most likely thromboembolic given presence of renal infarct as well. No residual effects. Continue with Xarelto 20 mg daily. (7) Port-A-Cath in place: (8) Oral thrush: Extensive. Continue with nystatin swish and swallow. Continue with Magic mouthwash. Patient currently is okay with regular cardiac diet. Plan Full code. Cardiac diet. Xarelto will suffice for DVT prophylaxis. 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
--- NOTE | 2022-03-03 16:32 | P.PN_ITS ---
Subjective Subjective: Infectious disease progress note no new complaints updated by lab today that staph aureus reported on blood cx from02/27 was an error. the onky isolate identified on was staph hominis. Vitals/I&O/Wt Last Vital Signs Temp 97.7 F 03/03/22 11:25 Pulse 83 03/03/22 11:25 Resp 16 03/03/22 11:25 BP 98/66 03/03/22 11:25 Pulse Ox 97 03/03/22 11:25 O2 Del Method 03/03/22 15:31 03/03/22 03/03/22 03/03/22 06:59 14:59 22:59 Intake Total 300 / 1330 710 / 710 Balance 300 / 1330 710 / 710 Weight last 48 hrs Weight 86.682 kg Physical Exam Narrative: General: No acute distress, AO x3 HEENT: PERRLA, pupils bilaterally equal and reactive, pallors not present Chest: Normal vesicular breath sounds, no added sounds, equal good air entry bilaterally CVS: S1-S2 regular, no murmurs, no tachycardia, no gallops, no rubs Abdomen: Soft, nontender, no organomegaly, bowel sounds present Neuro: No focal deficits, no facial deformity, AO x3, power 5/5 in all limbs Data 03/03/22 03:20 03/03/22 03:26 Micro: Microbiology 03/02/22 02:00 Blood Culture - Preliminary Blood NEGATIVE TO DATE [facility] [address] [place] [address] OR[place]O PARSONS, [facility] SCI[employer] NAME: Karl Martinez LOC: ER U #: [id number] AGE/SX: 66/M ROOM: RE02/27/[address]: Arturo Markham MD : 1955 BED: DIS: FAX #: STATUS: DEP ER TLOC: Spec #: [id number] Marcus: 02/27/22 Status: COMP Req #: [id number] Recd: 02/27/22-[address]: Arturo Markham MD Src: Blood SpDesc: Ordered: Bcult Procedure Result Verified Site Blood Culture Final 03/03/22-1439 BLOOD CULTURE BOTTLE POSITIVE, AEROBIC BOTTLE 1 OF 4 DIRECT GRAM STAIN: GRAM POSITIVE COCCI IN CLUSTERS IDENTIFICATION BY PCR CORRECTED REPORT: NO STAPH AUREUS ISOLATED Organism 1 Staphylococcus hominis Growth 1 BOTTLE Gram Stain Charge Charge for Gram Stain CRITICAL RESULT YES/NO: YES CRITICAL CALLED BY: RT TO AND READ BACK BY: JC DATE: 02/28/22 TIME: 1039 2ND CRITICAL RES YES/NO: YES 2ND CRITICAL CALLED BY: DANA 2ND TO AND READ BACK BY: DR PRUITT DATE: 03/03/22 2ND CRITICAL TIME: 1438 * This is a corrected result. * A prior result that was reported as final has been changed. S hominis M.I.C. RX --------- ------ * Amoxicillin/Clavulanate >4/2 R * Ampicillin >8 R * Ampicillin/Sulbactam 16/8 R * Ceftriaxone 32 R * Ciprofloxacin <=1 S * Clindamycin <=0.5 S * Erythromycin <=0.5 S * Gentamicin <=4 S * Levofloxacin <=1 S * Linezolid 2 S * Oxacillin >2 R * Penicillin >8 R * Rifampin <=1 S * Tetracycline <=4 S * Trimethoprim/Sulfamethoxazole <=0.5/9.5 S Vancomycin 1 S Daptomycin <=0.5 S Blood Culture Final (changed) 03/02/22-2148 BLOOD CULTURE BOTTLE POSITIVE, AEROBIC BOTTLE 1OF 4 DIRECT GRAM STAIN: GRAM POSITIVE COCCI IN CLUSTERS Staphylococcus aureusMEC A Organism 1 Staphylococcus hominis Growth 1 BOTTLE Gram Stain Charge Charge for Gram Stain CRITICAL RESULT YES/NO: YES CRITICAL CALLED BY: RT TO AND READ BACK BY: JC DATE: 02/28/22 TIME: 1039 S hominis M.I.C. RX --------- ------ * Amoxicillin/Clavulanate >4/2 R * Ampicillin >8 R * Ampicillin/Sulbactam 16/8 R * Ceftriaxone 32 R * Ciprofloxacin <=1 S * Clindamycin <=0.5 S * Erythromycin <=0.5 S * Gentamicin <=4 S * Levofloxacin <=1 S * Linezolid 2 S * Oxacillin >2 R * Penicillin >8 R * Rifampin <=1 S * Tetracycline <=4 S * Trimethoprim/Sulfamethoxazole <=0.5/9.5 S Vancomycin 1 S Daptomycin <=0.5 S Blood Culture Preliminary (changed) 02/28/22-1039 BLOOD CULTURE BOTTLE POSITIVE, AEROBIC BOTTLE 1OF 4 DIRECT GRAM STAIN: GRAM POSITIVE COCCI IN CLUSTERS Staphylococcus aureusMEC A SUSCEPTIBILITIES TO FOLLOW Organism 1 Staphylococcus aureus Growth 1 BOTTLE Gram Stain Charge Charge for Gram Stain CRITICAL RESULT YES/NO: YES CRITICAL CALLED BY: RT CLIFTON AND READ BACK BY: JC DATE: 02/28/22 TIME: 1039 Blood Culture Preliminary (changed) 02/27/22-1141 SPECIMEN COLLECTED A&P Assessment and plan (1) Bacteremia due to Staphylococcus aureus: (2) Port-A-Cath in place: Plan Patient with lung cancer, port placement in early January, admitted for recent neutropenic fever and blood culture positive for 1 of 4 staph aureus upon evaluation on February 27, 2022. However now reported by lab that this isolate was not a staph aureus at all. In error, staph hominis was reported as staph aureus. Repeat peripheral blood cultures from February 28, 2022 are thus far negative. Port cx from 03/02 thus far negative. Given this updated information, staph hominis is likely to be a contaminant in this case, therefore would not recommend port removal or RADHA for endocarditis specifically anymore. Can d/c cefepime Repeat PBCX and port cx are currently running. If no organism identified at 48 h, can d/c all abx and discharge Will follow Attestations Medical Necessity Statement*: per admitting Coding Level of Care Code Acute Sleeve Setter Lockstitch for [facility] Fwd Diagnoses Bacteremia due to Staphylococcus aureus R78.81; B95.61 Port-A-Cath in place Z95.828
[2022-03-03] MEDS: rivaroxaban 10 mg Tablet 20 MG PO (20:33)
[2022-03-03] MEDS: gabapentin 300 mg Capsule PO (20:34)
[2022-03-03] MEDS: acetaminophen 500 mg Tablet PO (20:42)
[2022-03-04] VITALS: BP 94/58; PULSE 71; RESP 16; TEMP 36.6; O2SAT 92
[2022-03-04 04:00] VITALS: BP 88/58; PULSE 64; RESP 17; TEMP 36.8; O2SAT 91
[2022-03-04 04:21] LABS: Hematocrit 27.1 % (42.0-52.0); Hemoglobin 8.8 g/dL (11.7-16.6); Mean Corpuscular HGB Conc 32.5 g/dL (30.0-36.0); Mean Corpuscular Hemoglobin 28.1 pg (28.0-34.0); Mean Corpuscular Volume 86.6 fl (80-94); Mean Platelet Volume 10.7 fL (7.4-10.4); Platelet Count 370 10^3/cmm (130-400); Red Blood Count 3.13 10^6/uL (4.1-5.3); Red Cell Distribution Width 14.9 % (12.1-15.1)
[2022-03-04 04:55] LABS: Alanine Aminotransferase 19 U/L (0-41); Alkaline Phosphatase 68 U/L (40-130); Anion Gap 14.3 (5-19); Aspartate Amino Transferase 19 U/L (0-40); Blood Urea Nitrogen 11 mg/dL (8-23); Calcium 9.3 mg/dL (8.5-10.5); Carbon Dioxide 23 mmol/L (22-29); Chloride 102 mmol/L (98-107); Globulin 3.2 g/dL (1.3-4.6); Glomerular Filtration Rate 112.5 mL/min (90-130); Glucose 90 mg/dL (65-115); Osmolality Calculated 279 mOsm/kg (285-295); Potassium 4.3 mmol/L (3.5-5.1); Sodium 135 mmol/L (136-145); Total Bilirubin 0.3 mg/dL (0.15-1.2); Total Protein 6.2 g/dL (6.6-8.7)
[2022-03-04 05:03] LABS: Total Cells Counted 100 (0-100)
[2022-03-04 05:07] LABS: Absolute Neutrophil 2.5 10^3/cmm (1.4-6.5); Absolute Segmented Neutrophil 2.2 10/cmm (1.6-7.1); Band Neutrophils Absolute 0.4 10^3/cmm (0.0-1.2); Eosinophils 0 %; Lymphocytes 15 %; Lymphocytes Absolute 0.6 10^3/cmm (1.2-3.4); Monocytes Absolute 0.7 10^3/cmm (0.1-0.6); Platelet Estimate Normal (Normal); Segmented Neutrophils 54 %
[2022-03-04 05:08] LABS: Anisocytosis 2+; Polychromasia Trace
[2022-03-04] MEDS: aspirin 81 mg EC Tablet PO (05:48)
[2022-03-04] MEDS: pantoprazole DR 40 mg Tablet PO (05:48)
[2022-03-04 08:00] VITALS: BP 101/65; PULSE 74; PULSE 86; RESP 15; RESP 18; TEMP 36.7; O2SAT 94; O2SAT 95
[2022-03-04] MEDS: allopurinol 100 mg Tablet PO (09:13)
[2022-03-04] MEDS: nystatin 100,000 unit/mL UDC 5 mL 500000 UNIT PO ×2 (09:13→15:02)
[2022-03-04] MEDS: lidocaine 2% viscous 1.667 ML, diphenhydrAMINE oral liq 4.165 MG, aluminum-mag hydrox-s... MUCOUS MEM (09:15)
[2022-03-04] MEDS: vancomycin 1,500 MG/300 ML PIGGYBACK 200 MG IV (09:17)
[2022-03-04 12:00] VITALS: BP 96/64; PULSE 83; RESP 16; TEMP 36.6; O2SAT 97
--- NOTE | 2022-03-04 12:19 | PC.CHAP ---
Pastoral Care Encounter/Spiritual Assessment Type of Contact [] Declined neurology technologist visit [] Patient/Family/Request visit [] Outpatient visit [] Follow-up visit [] Physician referral [] Code/Alert [x] Routine visit [] Staff referral [] Actively dying [] Patient sleeping [] Family support [] [] Out of room [] Palliative care [] [] Receiving care in room [] Pre-surgical visit [] Trauma [] Long length of stay [] ICU visit [] Other: Relational/Emotional Strength [x] Patient feels connected with others/family/visitors/staff [] Distress [] Loneliness/isolation [] Abandonment Spirituality of Patient [x] Person of [place] [x] Attends Voodoo of their [place] [x] Believes in Prayer [x] Reads Bible or Church materials [] There are Spiritual issues to be addressed Broodmare Barn Groom Interventions [x] Prayer []x Active listening x[] Non-anxious presence [x] Spiritual/emotional support [] Crisis/trauma care [] Spiritual counseling [] Bereavement support [] Provided bereavement packet [] Provided Bible/devotional materials [] Provided toy/stuffed animal, coloring book to patient or family member [] Provided Communion [] Anointing/[place] [] Salvation [x] Completed spiritual assessment [] Other: Impact on Illness or Injury [] Angry [] Fearful [] Anxious [] Often cries [] Exhaustion [] Unable to work [] Unable to attend buddhism [] Unable to walk/stand [] Unable to read [] Unable to drive [] Unable to eat/drink [] Unable to sleep [] Unable to be with family [] Patient intubated [] Other: Summary Time spent with patient 15 min
--- NOTE | 2022-03-04 13:33 | P.PN_ITS ---
Subjective Subjective: infectiosu disease progress note Chart reveiwed, care discussed with hospitalist, micro lab ; patient not examined today no acute interim events Medications: Reviewed: Yes Vitals/I&O/Wt Last Vital Signs Temp 97.8 F 03/04/22 12:00 Pulse 83 03/04/22 12:00 Resp 16 03/04/22 12:00 BP 96/64 03/04/22 12:00 Pulse Ox 97 03/04/22 12:00 O2 Del Method 03/04/22 12:00 O2 Flow Rate 1 03/03/22 20:00 03/03/22 03/04/22 03/04/22 22:59 06:59 14:59 Intake Total 740 / 1450 400 / 1850 360 / 360 Balance 740 / 1450 400 / 1850 360 / 360 Data 03/04/22 03:59 03/04/22 03:59 A&P Assessment and plan (1) Bacteremia due to coagulase-negative Staphylococcus: (2) MRSA nasal colonization: Plan Patient with lung cancer, port placement in early January, admitted for recent neutropenic fever and blood culture positive for 1 of 4 staph aureus upon evaluation on February 27, 2022. However now reported by lab on 03/03 that this isolate was not a staph aureus at all. In error, staph hominis was reported as staph aureus by lab. Repeat peripheral blood cultures from February 28, 2022 are thus far negative. Port cx from 03/02 thus far negative. Given this updated information, staph hominis is likely to be a contaminant in this case, therefore would not recommend port removal or RADHA for endocarditis specifically anymore. Since all follow up cultures remains negative, can discontinue all antibiotics. For MRSA nasal colonization, recommend decolonization with Mupirocin 2% to B/L anterior nares, B/L groin folds and B/L axillae for 5 days a month for 6 months. Additionally also recommend hibiclens 4% bath five days a month, to be repeated montly x 6 months. okay to get chemo tomorrow from ID standpoint Attestations Medical Necessity Statement*: per admitting Coding Level of Care Code Acute Resident Services Manager for [facility] Fwd Diagnoses Bacteremia due to coagulase-negative Staphylococcus R78.81; B95.7 MRSA nasal colonization Z22.322
--- NOTE | 2022-03-04 15:30 | PM.DCS ---
Discharge Providers Date of Admission: 02/28/22 21:26 Date of Discharge: March 04, 2022 Attending Provider at Admission: Caio Hollis MD Attending Provider at Discharge: Salazar Mcbride Primary Care Provider: Lianet Hannah MD Diagnoses at Discharge Discharge Diagnosis (1) Bacteremia due to coagulase-negative Staphylococcus: Status: Acute (2) MRSA nasal colonization: Status: Acute Reason for Visit Reason for Visit: Staff Infections Hospital Course Hospital Course Pleasant 66-year-old gentleman with lung cancer, currently undergoing chemoradiation, recent CVA, renal infarct, recently neutropenic, tachycardic on February 27, was assessed in ER where he was transiently hypotensive but improved with fluids. He was discharged home after work-up that included blood cultures. Blood cultures were then reported positive for staph aureus. Neutropenia has since resolved. He has had odynophagia with oropharyngeal candidiasis, but this has been improving with nystatin swish and swallow. He has not had any issues with his port. He otherwise is doing well. During his hospitalization he was initially started on Ceftin and vancomycin empirically also with question of whether perihilar infiltrate was not related to pneumonia. Repeat blood cultures were drawn. TTE was obtained which showed normal ejection fraction, no R WMA. Grade 1 diastolic dysfunction. Structurally normal aortic valve. Trace TVR. RADHA was considered depending on progress and findings. He was assessed by infectious disease. Repeat cultures are all so far negative. Also per discussion by ID specialist with micro lab, MRSA finding on additional culture appears to have been overread in error with MRSA reported instead of staph hominis. He does appear to have MRSA colonization with nasal MRSA PCR positive. On discharge medication protocol is recommended with mupirocin to bilateral anterior nares, bilateral groin folds and axilla for 5 days a month for 6 months. Additionally recommended also Hibiclens 4% bath 5 days a month, to be repeated monthly for 6 months. He otherwise is doing well, and is ready for discharge with chemotherapy tomorrow and resuming prior follow-up. Physical Exam Narrative: Spouse at bedside. Const: COMMON NORMALS: patient oriented x3 and alert GENERAL APPEARANCE: cooperative ORIENTATION/CONSCIOUSNESS: Yes awake HENMT: COMMON NORMALS: oropharynx normal OTHER: No thrush Neck/C-Spine: COMMON NORMALS: no JVD Resp: COMMON NORMALS: normal respiratory effort and clear to auscultation bilaterally AUSCULTATION: clear to auscultation bilaterally Cardio: COMMON NORMALS: no JVD, regular rhythm, S1 normal heart sound present, S2 normal heart sound present and No murmurs present (Cardio) RHYTHM: regular rhythm HEART SOUNDS: S1 normal heart sound present and S2 normal heart sound present GI: COMMON NORMALS: Normal to inspection, nondistended, normoactive bowel sounds present, Soft to palpation and non-tender PALPATION: Yes Soft to palpation Extremity: COMMON NORMALS: no joint enlargement and no pedal edema Neuro: COMMON NORMALS: patient oriented x3 and moves all extremities SENSORIUM/ORIENTATION: Yes alert Skin: COMMON NORMALS: no rashes or lesions noted GENERAL SKIN EXAM: no rashes or lesions noted Discharge Data Studies Completed and Pending Completed Studies During Hospitalization Category Date Time Status CXRP [XR chest 1V portable [id number]] Stat Exams 02/28/22 20:23 Completed CV. echo wo/w contrast [id number] Routine Ultrasound 03/01/22 11:15 Completed Pending at discharge Category Date Time Status Basic Metabolic Panel AM LABS Lab 03/05/22 04:00 Ordered Basic Metabolic Panel AM LABS Lab 03/06/22 04:00 Ordered Basic Metabolic Panel AM LABS Lab 03/07/22 04:00 Ordered Blood Culture Stat Lab 02/28/22 20:53 Results Blood Culture Stat Lab 03/02/22 02:00 Results Clostridioides Difficile PCR Routine Lab 03/02/22 15:37 Ordered Complete Blood Count w/Auto AM LABS Lab 03/05/22 04:00 Ordered Complete Blood Count w/Auto AM LABS Lab 03/06/22 04:00 Ordered Complete Blood Count w/Auto AM LABS Lab 03/07/22 04:00 Ordered Enteric Bacterial Panel by PCR Routine Lab 03/02/22 15:37 Ordered Enteric Parasite Panel by PCR Routine Lab 03/02/22 15:37 Ordered Immunochemical Fecal OCB Routine Lab 03/02/22 15:37 Ordered Lactoferrin Routine Lab 03/02/22 15:37 Ordered Sputum Culture and Gram Stain Routine Lab 02/28/22 21:38 Uncollected Radiology Impressions Chest X-Ray 02/28/22 20:23 IMPRESSION: 1. Bilateral mid to lower lung field right greater left mixed interstitial and airspace infiltrates. 2. Left-sided Port-A-Cath. Laboratory Results WBC 4.0 10^3/uL (4.0-10.0) 03/04/22 03:59 RBC 3.13 10^6/uL (4.1-5.3) L 03/04/22 03:59 Hgb 8.8 g/dL (11.7-16.6) L 03/04/22 03:59 Hct 27.1 % (42.0-52.0) L 03/04/22 03:59 MCV 86.6 fl (80-94) 03/04/22 03:59 MCH 28.1 pg (28.0-34.0) 03/04/22 03:59 MCHC 32.5 g/dL (30.0-36.0) 03/04/22 03:59 RDW 14.9 % (12.1-15.1) 03/04/22 03:59 Plt Count 370 10^3/cmm (130-400) 03/04/22 03:59 MPV 10.7 fL (7.4-10.4) H 03/04/22 03:59 Neut % (Auto) 47.6 % 03/03/22 03:20 Lymph % (Auto) Not Reportable 03/04/22 03:59 [place] % (Auto) Not Reportable 03/04/22 03:59 Eos % (Auto) 1.1 % 03/03/22 03:20 Baso % (Auto) 0.6 % 03/03/22 03:20 Neut # (Auto) 1.73 10^3/uL (1.8-7.7) L 03/03/22 03:20 Lymph # (Auto) Not Reportable 03/04/22 03:59 [place] # (Auto) Not Reportable 03/04/22 03:59 Eos # (Auto) 0.0 10^3/uL (0.0-0.8) 03/03/22 03:20 Baso # (Auto) 0.0 10^3/uL (0.0-0.1) 03/03/22 03:20 Nucleated RBC % (auto) 0 % 03/03/22 03:20 Total Counted 100 (0-100) 03/04/22 03:59 Atypical Lymphs % 1.0 % (0-5) 03/04/22 03:59 Absolute Neutrophils 2.5 10^3/cmm (1.4-6.5) 03/04/22 03:59 Segmented Neutrophils 54 % 03/04/22 03:59 Abs Segm Neuts (Man) 2.2 10/cmm (1.6-7.1) 03/04/22 03:59 Band Neutrophils 9.0 % 03/04/22 03:59 Abs Band Neuts (Man) 0.4 10^3/cmm (0.0-1.2) 03/04/22 03:59 Absolute Lymphocytes 0.6 10^3/cmm (1.2-3.4) L 03/04/22 03:59 Lymphocytes (Manual) 15 % 03/04/22 03:59 Monocytes (Manual) 18.0 % 03/04/22 03:59 Absolute Monocytes 0.7 10^3/cmm (0.1-0.6) H 03/04/22 03:59 Eosinophils (Manual) 0 % 03/04/22 03:59 Absolute Eosinophils 0.0 10^3/cmm (0.0-0.7) 03/04/22 03:59 Basophils (Manual) 0.0 % 03/04/22 03:59 Absolute Basophils 0.0 10^3/cmm (0.0-0.2) 03/04/22 03:59 Metamyelocytes 3.0 % 03/04/22 03:59 Nucleated RBCs # 0.0 /100WBC 03/03/22 03:20 Platelet Estimate Normal (Normal) 03/04/22 03:59 Polychromasia Trace 03/04/22 03:59 Anisocytosis 2+ H 03/04/22 03:59 Sodium 135 mmol/L (136-145) L 03/04/22 03:59 Potassium 4.3 mmol/L (3.5-5.1) 03/04/22 03:59 Chloride 102 mmol/L (98-107) 03/04/22 03:59 Carbon Dioxide 23 mmol/L (22-29) 03/04/22 03:59 Anion Gap 14.3 (5-19) 03/04/22 03:59 BUN 11 mg/dL (8-23) 03/04/22 03:59 Creatinine 0.7 mg/dL (0.7-1.2) 03/04/22 03:59 GFR Calculation 112.5 mL/min (90-130) 03/04/22 03:59 Glucose 90 mg/dL (65-115) 03/04/22 03:59 Estimat Average Glucose 108 03/02/22 04:13 Hemoglobin A1c 5.4 % (4.0-6.0) 03/02/22 04:13 Calculated Osmolality 279 mOsm/kg (285-295) L 03/04/22 03:59 Calcium 9.3 mg/dL (8.5-10.5) 03/04/22 03:59 Phosphorus 2.7 mg/dL (2.5-4.5) 03/01/22 04:20 Magnesium 1.8 mg/dL (1.7-2.3) 03/01/22 04:20 Iron 20 ug/dL (59-158) L 03/01/22 04:20 TIBC 173 mcg/dl 03/01/22 04:20 % Saturation 11.5 % (20-50) L 03/01/22 04:20 Unsat Iron Binding 153 ug/dL (112-347) 03/01/22 04:20 Total Bilirubin 0.3 mg/dL (0.15-1.2) 03/04/22 03:59 AST 19 U/L (0-40) 03/04/22 03:59 ALT 19 U/L (0-41) 03/04/22 03:59 Alkaline Phosphatase 68 U/L (40-130) 03/04/22 03:59 C-Reactive Protein 177.1 mg/L (0.0-4.9) H 03/01/22 04:20 Total Protein 6.2 g/dL (6.6-8.7) L 03/04/22 03:59 Albumin 3.0 g/dL (3.5-5.2) L 03/04/22 03:59 Globulin 3.2 g/dL (1.3-4.6) 03/04/22 03:59 Triglycerides 79 mg/dL (0-150) 03/02/22 04:13 Cholesterol 94 mg/dL (0-200) 03/02/22 04:13 LDL Cholesterol, Calc 51 mg/dL (50-129) 03/02/22 04:13 Total VLDL Cholesterol 16 mg/dL (0-30) 03/02/22 04:13 HDL Cholesterol 27 mg/dL (60-100) L 03/02/22 04:13 Cholesterol/HDL Ratio 3.48 mg/dL (1.0-5.00) 03/02/22 04:13 Vitamin B12 > 2000 pg/mL (232-1245) H 03/01/22 04:20 Folate 18.4 ng/mL (4.5-32.2) 03/02/22 04:13 Procalcitonin 0.15 ng/mL (0-0.5) 02/28/22 20:45 TSH 0.48 uIU/mL (0.27-4.20) 03/02/22 04:13 Urine Color Yellow (Yellow) 02/28/22 21: Urine Appearance Clear (CLEAR) 02/28/22 21: Urine pH 5 (5-7) 02/28/22 21:26 Ur Specific [place] 1.020 (1.005-1.030) 02/28/22 21:26 Urine Protein Trace (Negative) 02/28/22 21: Urine Glucose (UA) Norm (Normal) 02/28/22 21:26 Urine Ketones Trace (Negative) H 02/28/22 21:26 Urine Blood 2+ (Negative) H 02/28/22 21: Urine Nitrate Negative (Negative) 02/28/22 21: Urine Bilirubin Neg (Negative) 02/28/22 21:26 Urine Urobilinogen Norm mg/dL (Negative) 02/28/22 21:26 Ur Leukocyte Esterase Negative (Negative) 02/28/22 21:26 Urine RBC 5-10 /hpf (0-2) H 02/28/22 21:26 Urine WBC None /hpf (0-5) 02/28/22 21:26 Ur Squamous Epith Cells None /hpf (0-5) 02/28/22 21:26 Ur Transition Epith Cell 0-4 /hpf 02/28/22 21: Amorphous Sediment Not Reportable 02/28/22 21: Urine Bacteria None /hpf (NONE) 02/28/22 21:26 Urine Mucus 2+ /hpf 02/28/22 21:26 Vancomycin Trough 15.7 ug/mL (10-15) H 03/02/22 20:25 Influenza Type A Ag negative (Negative) 02/28/22 21:34 Influenza Type B Ag negative (Negative) 02/28/22 21:34 SARS-CoV-2 Ag (Rapid) negative (Negative) 02/28/22 21:34 Vitals Last Vital Signs Temp 97.8 F 03/04/22 12:00 Pulse 83 03/04/22 12:00 Resp 16 03/04/22 12:00 BP 96/64 03/04/22 12:00 Pulse Ox 97 03/04/22 12:00 O2 Del Method 03/04/22 12:00 O2 Flow Rate 1 03/03/22 20:00 Discharge Plan Discharge Patient Disposition: Home Condition: Stable Prescriptions: New mupirocin 2 % ointment kit See Rx Instructions .ROUTE .COMPLEX Qty: 1 0RF Rx Instructions: Nasal, armpit folds, groin folds daily for 5 days in a month for 6 months Continued albuterol sulfate 90 mcg/actuation HFA aerosol inhaler 2 puff inhalation Q6H PRN (Reason: shortness of breath or wheezing) Qty: 8.5 0RF (DME) nebulizers Misc See Rx Instructions .MEDSUPPLY Qty: 1 0RF Rx Instructions: As directed gabapentin 300 mg capsule 300 mg PO BEDTIME 30 Days Qty: 30 2RF omeprazole 20 mg capsule,delayed release(DR/EC) 20 mg PO QAM 90 Days Qty: 90 1RF Nitrostat 0.4 mg tablet, sublingual 0.4 mg SUBLINGUAL Q5M PRN (Reason: Chest Pain) Qty: 25 0RF Rx Instructions: do not exceed 3 doses per episode tizanidine 2 mg tablet 2 mg PO Q8H PRN (Reason: muscle spasticity) Qty: 30 1RF aspirin 81 mg tablet,delayed release (DR/EC) 81 mg PO QAM oxycodone-acetaminophen [Percocet] 5-325 mg tablet 1 - 2 tab PO .Q4-6H PRN (Reason: pain) 30 Days Qty: 60 0RF allopurinol 100 mg tablet 100 mg PO BID Qty: 60 0RF lidocaine-prilocaine 2.5-2.5 % cream 1 applic topical .COMPLEX Qty: 30 0RF Rx Instructions: Apply quarter sized amount 30-45 minutes prior to port access. Cover with cellophane after application. Xarelto 10 mg tablet 20 mg PO BEDTIME Qty: 30 3RF oxycodone 5 mg/5 mL solution 5 mg PO Q6H PRN (Reason: pain) 14 Days Qty: 250 0RF lidocaine HCl [Lidocaine Viscous] 2 % solution 5 ml mucous membrane QID PRN (Reason: pain) 7 Days Qty: 80 5RF Rx Instructions: Add 80cc Benadryl and 80cc Maalox - Magic Mouthwash. Swallow nystatin 100,000 unit/mL suspension 5 ml PO TID Qty: 200 0RF Rx Instructions: swish and swallow atorvastatin 40 mg tablet 40 mg PO BEDTIME prochlorperazine maleate [Compazine] 10 mg tablet 10 mg PO Q4H PRN (Reason: Mild Nausea) Qty: 30 3RF multivitamin Tablet 1 tab PO QAM ascorbic acid (vitamin C) [Vitamin C] 1,000 mg Tablet 1,000 mg PO QAM cyanocobalamin (vitamin B-12) [Vitamin B-12] 1,000 mcg Tablet 1,000 mcg PO QAM cholecalciferol (vitamin D3) [Vitamin D3] 25 mcg (1,000 unit) Tablet 25 mcg PO QAM Anoro Ellipta 62.5-25 mcg/actuation blister with device 1 inh inhalation QAM Discontinued levofloxacin 750 mg tablet 750 mg PO Q24H 10 Days Qty: 10 0RF Discharge Orders: Discharge Order (Routine); Ordered 03/04/22 Ordered By: Salazar Mcbride Referrals: Lianet Hannah MD [Primary Care Provider] - 03/12/22 9:15 am Discharge Diet: Cardiac Discharge Activity: Increase activity as tolerated Patient Instructions: Mupirocin (On the skin), Opioid Safety Activity Restrictions/Additional Instructions: Apply mupirocin to anterior nares, both armpits, both groin folds daily for 5 days each month for 6 months. At the same time use 4% Hibiclens for showers five days a month, to be repeated montly x 6 months. Chemotherapy tomorrow at 0800. Labs will be done at this appointment. Discharge Attestations Time Spent in Discharge Care*: greater than 30 min Quality Metrics Clinical Quality Measures [ No reported AMI, CVA or VTE this stay] Coding Level of Care Code Acute Chg FW DC note Diagnoses Bacteremia due to coagulase-negative Staphylococcus R78.81; B95.7 MRSA nasal colonization Z22.322
--- NOTE | 2022-03-04 17:23 | PC.NURSE ---
Discharged discussed with patient and spouse. New medications with special instructions, stopped medications, follow up appointments and chemo/radiation appointments discussed. Verbalized understaning.
[2022-03-04 17:25] VITALS: BP 96/64; PULSE 83; RESP 16; TEMP 36.6; O2SAT 97
--- NOTE | 2022-03-04 17:58 | PC.NURSE ---
Patient required Hibiclens 4% upon d/c per Dr. Mcbride's order. I placed a verbal order and it was delivered to bedside. Education provided on Hibiclens use with patient and patient's spouse. They verbalized understanding.
== END 2022-03-04 16:55 | disposition home or self-care (01) | DRG 809 ==
LOC: ER 21:31 → MEDSURG 21:37
PROVIDERS: Student in an Organized Health Care Education/Training Program; Admitting Provider Internal Medicine; Emergency Provider Emergency Medicine; PCP Family Medicine; Visit Provider Internal Medicine
DX: D70.1 Agranulocytosis secondary to cancer chemotherapy (principal); B37.0 Candidal stomatitis; C34.2 Malignant neoplasm of middle lobe, bronchus or lung; N28.0 Ischemia and infarction of kidney; E86.0 Dehydration; R11.0 Nausea; R00.0 Tachycardia, unspecified; T45.1X5A Adverse effect of antineoplastic and immunosuppressive drugs, initial encounter; T66.XXXA Radiation sickness, unspecified, initial encounter; D63.0 Anemia in neoplastic disease; J44.9 Chronic obstructive pulmonary disease, unspecified; I25.10 Atherosclerotic heart disease of native coronary artery without angina pectoris; I10 Essential (primary) hypertension; K21.9 Gastro-esophageal reflux disease without esophagitis; I25.2 Old myocardial infarction; Z87.891 Personal history of nicotine dependence; Z79.01 Long term (current) use of anticoagulants; Z22.322 Carrier or suspected carrier of Methicillin resistant Staphylococcus aureus; Z79.891 Long term (current) use of opiate analgesic; Z95.5 Presence of coronary angioplasty implant and graft; Z79.899 Other long term (current) drug therapy; Z86.73 Personal history of transient ischemic attack (TIA), and cerebral infarction without residual deficits; Z95.9 Presence of cardiac and vascular implant and graft, unspecified
CPT/HCPCS: 36415; 71045; 80048; 80053; 80061; 80202; 81001; 82607; 82746; 83036; 83540; 83550; 83605; 83735; 84100; 84145; 84443; 85007; 85025; 86140; 87040; 87077; 87086; 87150; 87186; 87205; 87426; 87486; 87581; 87633; 87641; 87804; 96365; 97161; 99284; C8929; J0692; J2543; J3370; J7030; J7050; Q9956

== ENCOUNTER 2022-03-16 10:01 | Oncology outpatient (recurring) (ONCR) | payer MEDICARE, SELFPAY ==
[2022-02-14 07:58] VITALS: BP 135/84; PULSE 53; RESP 16; TEMP 36.4; O2SAT 99
[2022-02-14] MEDS: sodium chloride 0.9% 250 ML 100 ML IV (08:17)
[2022-02-14] MEDS: palonosetron 0.25 mg/5 mL SDV IVP (08:18)
[2022-02-14] MEDS: etoposide 205 MG in sodium chloride 0.9%(non-DEHP) 500 ML 510.25 MG IV (09:00)
[2022-02-14 11:34] VITALS: BP 127/78; PULSE 57; RESP 18; TEMP 35.9; O2SAT 98
[2022-02-18 08:07] LABS: Basophils % 0.6 %; Eosinophils # 0.1 10^3/uL (0.0-0.8); Eosinophils % 1.9 %; Hematocrit 36.5 % (42.0-52.0); Hemoglobin 11.5 g/dL (11.7-16.6); Lymphocytes # 0.7 10^3/uL (0.8-4.8); Lymphocytes % 13.7 %; Mean Corpuscular HGB Conc 31.5 g/dL (30.0-36.0); Mean Corpuscular Hemoglobin 28.9 pg (28.0-34.0); Mean Corpuscular Volume 91.7 fl (80-94); Monocytes % 0.6 %; Neutrophils # 3.91 10^3/uL (1.8-7.7); Neutrophils % 82.1 %; Nucleated Red Blood Cells % 0 %; Platelet Count 222 10^3/cmm (130-400); Red Blood Count 3.98 10^6/uL (4.1-5.3); Red Cell Distribution Width 14.5 % (12.1-15.1); White Blood Count 4.8 10^3/uL (4.0-10.0)
[2022-02-18 08:25] LABS: Alanine Aminotransferase 18 U/L (0-41); Albumin Level 3.6 g/dL (3.5-5.2); Alkaline Phosphatase 85 U/L (40-130); Anion Gap 15.5 (5-19); Aspartate Amino Transferase 17 U/L (0-40); Blood Urea Nitrogen 21 mg/dL (8-23); Calcium 9.6 mg/dL (8.5-10.5); Carbon Dioxide 25 mmol/L (22-29); Chloride 94 mmol/L (98-107); Glomerular Filtration Rate 96.4 mL/min (90-130); Glucose 99 mg/dL (65-115); Osmolality Calculated 273 mOsm/kg (285-295); Potassium 4.5 mmol/L (3.5-5.1); Sodium 130 mmol/L (136-145); Total Bilirubin 0.6 mg/dL (0.15-1.2); Total Protein 6.6 g/dL (6.6-8.7)
[2022-02-18 08:40] LABS: Slide Review Slide Review Perform
--- NOTE | 2022-02-18 10:17 | ONCRAD TMN_ITS ---
Radiation Oncology Treatment Management Note Patient Name: Karl Martinez Date of : 1955 Date of Service: 02/18/2022 Attending Physician: Karl Hester M.D. 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 A chest radiograph obtained on December 28, 2021 revealed a 5.7 cm lobulated mass in the right hilum. A thoracic CT scan ordered on January 04, 2022 confirmed a 4.9 cm x 5.9 cm x 10.3 cm right hilar mass that was associated with narrowing of the right mainstem bronchus and right upper lobe bronchus, anterior mediastinal, and bulky subcarinal lymphadenopathy. Endoscopy with endobronchial ultrasonography and biopsy was performed by Vito Chatterjee M.D. on January 08, 2022. 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 A PET scan ordered on January 31, 2022 confirmed a right suprahilar mass and right upper-lobe densities. An MRI of the head did not identify intracranial disease. The patient has received 16 Gy of a prescribed 66 Cadena with an intensity modulated radiotherapy plan utilizing a step and shoot treatment technique. He has been prescribed cisplatin (75 mg/m???) and etoposide (100 mg/m???) every three weeks. Upon review of systems, he denied new pulmonary symptoms. On physical examination, the patient weighed 203 lbs. His temperature was 97 ???F and the blood pressure was 96/64 mmHg. The pulse was 87 bpm and his respiratory rate was 18. Oxygen saturation while breathing room air was 93%. There was no erythema within the treatment kiser. Bilateral decreased breath sounds were present Continue thoracic radiotherapy as planned. Signed by: Dr. Karl Hester 02/18/2022 10:15:26 AM
[2022-02-20] MEDS: loperamide 2 mg Capsule 4 MG PO (11:47)
[2022-02-20] MEDS: sodium chloride 0.9% 500 ML 999 ML IV (11:48)
[2022-02-20 12:05] VITALS: BP 109/64; PULSE 78; RESP 18; TEMP 36.6; O2SAT 97
--- NOTE | 2022-02-20 13:13 | PC.NURSE ---
patient had office visit with requesting IV fluids due to diarrhea with the port accessed by Peg Stewart RN with good blood return,IV normal saline started prior to radiation therapy. He also having loose stools with loperimide given.
--- NOTE | 2022-02-25 11:06 | ONCRAD TMN_ITS ---
Radiation Oncology Treatment Management Note Patient Name: Karl Martinez Date of : 1955 Date of Service: 02/25/2022 Attending Physician: Karl Hester M.D. 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 A chest radiograph obtained on December 28, 2021 revealed a 5.7 cm lobulated mass in the right hilum. A thoracic CT scan ordered on January 04, 2022 confirmed a 4.9 cm x 5.9 cm x 10.3 cm right hilar mass that was associated with narrowing of the right mainstem bronchus and right upper lobe bronchus, anterior mediastinal, and bulky subcarinal lymphadenopathy. Endoscopy with endobronchial ultrasonography and biopsy was performed by Vito Chatterjee M.D. on January 08, 2022. 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 A PET scan ordered on January 31, 2022 confirmed a right suprahilar mass and right upper-lobe densities. An MRI of the head did not identify intracranial disease. The patient has received 26 Gy of a prescribed 66 Cadena with an intensity modulated radiotherapy plan utilizing a step and shoot treatment technique. He has been prescribed cisplatin (75 mg/m???) and etoposide (100 mg/m???) every three weeks. Upon review of systems, he reported odynophagia. On physical examination, the patient weighed 194 lbs. His temperature was 98.1 ???F and the blood pressure was 92/62 mmHg. The pulse was 112 bpm and his respiratory rate was 18. Oxygen saturation while breathing room air was 95%. There was no erythema within the treatment kiser. Decreased breath sounds were auscultated. Continue thoracic radiotherapy as prescribed. I will prescribe oxycodone elixir for odynophagia. Signed by: Dr. Karl Hester 02/25/2022 11:04:27 AM
[2022-02-26] MEDS: sodium chloride 0.9% 500 ML 999 ML IV (10:00)
[2022-02-26 10:36] LABS: Basophils % 1.9 %; Eosinophils # 0.1 10^3/uL (0.0-0.8); Eosinophils % 5.6 %; Hematocrit 30.9 % (42.0-52.0); Hemoglobin 10.5 g/dL (11.7-16.6); Lymphocytes # 0.4 10^3/uL (0.8-4.8); Lymphocytes % 37.4 %; Mean Corpuscular Hemoglobin 28.5 pg (28.0-34.0); Mean Corpuscular Volume 83.7 fl (80-94); Mean Platelet Volume 10.5 fL (7.4-10.4); Monocytes # 0.4 10^3/uL (0.2-0.9); Monocytes % 40.2 %; Neutrophils % 14.9 %; Nucleated Red Blood Cells % 0 %; Platelet Count 132 10^3/cmm (130-400); Red Blood Count 3.69 10^6/uL (4.1-5.3); Red Cell Distribution Width 14.3 % (12.1-15.1); White Blood Count 1.1 10^3/uL (4.0-10.0)
[2022-02-26 10:39] LABS: Neutrophils # 0.16 10^3/uL (1.8-7.7)
[2022-02-26 10:58] LABS: Alanine Aminotransferase 14 U/L (0-41); Albumin Level 3.9 g/dL (3.5-5.2); Alkaline Phosphatase 77 U/L (40-130); Anion Gap 15.5 (5-19); Aspartate Amino Transferase 17 U/L (0-40); Blood Urea Nitrogen 21 mg/dL (8-23); Calcium 9.4 mg/dL (8.5-10.5); Carbon Dioxide 25 mmol/L (22-29); Chloride 100 mmol/L (98-107); Globulin 2.5 g/dL (1.3-4.6); Glomerular Filtration Rate 214.6 mL/min (90-130); Glucose 127 mg/dL (65-115); Osmolality Calculated 287 mOsm/kg (285-295); Potassium 4.5 mmol/L (3.5-5.1); Sodium 136 mmol/L (136-145); Total Bilirubin 0.6 mg/dL (0.15-1.2); Total Protein 6.4 g/dL (6.6-8.7)
[2022-02-26 11:04] VITALS: BP 88/66; PULSE 100; RESP 18; TEMP 36.9; O2SAT 98
[2022-03-05 08:45] VITALS: BMI 29.9
[2022-03-05] MEDS: alteplase 1 mg/mL SDV 2 mL 2 MG INTRACATH ×2 (08:49→09:47)
[2022-03-05] MEDS: sodium chloride 0.9% 250 ML 50 ML IV (12:46)
[2022-03-05] MEDS: acetaminophen 325 mg Tablet 650 MG PO (12:48)
[2022-03-05] MEDS: OLANZapine 5 mg TABLET PO (12:49)
[2022-03-05] MEDS: famotidine 20 mg/2 mL INJ IVP (12:51)
[2022-03-05] MEDS: diphenhydrAMINE 50 mg/mL SDV 1mL 25 MG IVP (12:51)
[2022-03-05] MEDS: ondansetron 2 mg/ML SDV 2 mL 8 MG IVP (12:54)
[2022-03-05] MEDS: fosaprepitant 150 MG in sodium chloride 0.9% 150 ML 300 MG IV (13:30)
[2022-03-05] MEDS: FUROsemide 10 mg/mL SDV 2mL 20 MG IVP (16:15)
[2022-03-05] MEDS: potassium chloride 20 MEQ in sodium chloride 0.9% 500 ML 500 MEQ IV (16:17)
[2022-03-05 17:29] VITALS: BP 110/68; PULSE 81; RESP 18; TEMP 36.3; O2SAT 97
[2022-03-06] MEDS: sodium chloride 0.9% 250 ML 75 ML IV (10:37)
[2022-03-06] MEDS: ondansetron 2 mg/ML SDV 2 mL 8 MG IVP (10:42)
[2022-03-06 12:58] VITALS: BP 129/82; PULSE 83; RESP 18; TEMP 35.8; O2SAT 99
[2022-03-07] MEDS: sodium chloride 0.9% 250 ML 100 ML IV (08:11)
[2022-03-07] MEDS: palonosetron 0.25 mg/5 mL SDV IVP (08:12)
[2022-03-07 09:50] VITALS: BP 118/79; PULSE 74; RESP 16; TEMP 36.7; O2SAT 93
--- NOTE | 2022-03-12 11:58 | ONCRAD TMN_ITS ---
Radiation Oncology Weekly Treatment Management Patient: Juan Romo MR#: [id number] : 1955> Attending Physician: Dr. Jason Willard Date of Service: 03/12/2022 Referring Physician(s) : Diagnosis: C34.10 - Malignant neoplasm of upper lobe, unspecified bronchus or lung, Diagnosed 01/08/2022 (Active) Limited, T4, N2, M0 Radiotherapy to date: Course: SVC - Rt Lung, Treatment Site: SCLCa - Rt Lung, Ref. ID: [id number], Energy: 6X, Dose/Fx (cGy): 200, #Fx: , Dose Correction (cGy): 0, Total Dose (cGy): 4,000, Start Date: 02/05/2022, Elapsed Days: 35 Reason for visit: The patient is being seen today as part of his regularly scheduled weekly on treatment visits to assess for acute toxicities from radiotherapy. Review of Systems: Activity level and appetite are stable. He has noticed some foods are not passing freely through the esophagus. He is also having mild esophageal discomfort. We will have Magic mouthwash prescribed today. No complaints with regard to his breathing. No fever or purulent sputum production. No unusual pain. Vital Signs: Performed on 03/12/2022 10:22 AM BMI - 29.476 kg/m2 (high), Height - 67 in, Weight - 188.2 lbs, Temperature - 98.7 f, Pulse - 100 /min, Respiration - 18 /min, O2 Sat - 94 % (low), Pain - 0, Fatigue - 8 and BP - 104/ 61 mm(hg)(/low). Physical Exam: Alert, oriented, no acute distress. Lungs clear to auscultation. No rales, rhonchi, or wheezes. Heart rhythm regular with no murmur or gallop. Imaging: Radiation therapy imaging related to accurate target localization (i.e. KV, MV and CBCT) was reviewed. Appropriate changes, if any, were made to ensure treatment accuracy. Plan: Magic mouthwash for mild esophagitis. Continue treatment as planned. Signed by: Dr. Mc Willard 03/12/2022 11:56:46 AM
[2022-03-13] MEDS: sodium chloride 0.9% 500 ML 999 ML IV ×2 (10:01→11:18)
[2022-03-13 12:13] LABS: Basophils % 1.1 %; Hematocrit 27.1 % (42.0-52.0); Hemoglobin 9.1 g/dL (11.7-16.6); Lymphocytes # 0.2 10^3/uL (0.8-4.8); Mean Corpuscular HGB Conc 33.6 g/dL (30.0-36.0); Mean Corpuscular Hemoglobin 28.4 pg (28.0-34.0); Mean Corpuscular Volume 84.7 fl (80-94); Monocytes % 1.7 %; Neutrophils # 1.45 10^3/uL (1.8-7.7); Neutrophils % 82.9 %; Nucleated Red Blood Cells % 0 %; Platelet Count 212 10^3/cmm (130-400); Red Cell Distribution Width 14.7 % (12.1-15.1); White Blood Count 1.8 10^3/uL (4.0-10.0)
[2022-03-13 12:24] LABS: Slide Review Slide Review Perform
[2022-03-13 12:32] LABS: Alanine Aminotransferase 26 U/L (0-41); Albumin Level 3.4 g/dL (3.5-5.2); Alkaline Phosphatase 89 U/L (40-130); Anion Gap 11.4 (5-19); Aspartate Amino Transferase 24 U/L (0-40); Blood Urea Nitrogen 22 mg/dL (8-23); Calcium 8.7 mg/dL (8.5-10.5); Carbon Dioxide 27 mmol/L (22-29); Chloride 98 mmol/L (98-107); Globulin 2.9 g/dL (1.3-4.6); Glomerular Filtration Rate 96.4 mL/min (90-130); Glucose 85 mg/dL (65-115); Osmolality Calculated 277 mOsm/kg (285-295); Potassium 4.4 mmol/L (3.5-5.1); Sodium 132 mmol/L (136-145); Total Bilirubin 0.3 mg/dL (0.15-1.2); Total Protein 6.3 g/dL (6.6-8.7)
[2022-03-14] MEDS: sodium chloride 0.9% 1,000 ML 999 ML IV (10:33)
[2022-03-14 11:42] VITALS: BP 103/71; PULSE 84; TEMP 36.6
[2022-03-15 09:00] VITALS: BP 100/69; TEMP 36.7
[2022-03-15] MEDS: sodium chloride 0.9% 1,000 ML 999 ML IV (09:11)
[2022-03-15 10:21] VITALS: BP 107/74; PULSE 88; TEMP 36.3
[2022-03-16 09:15] VITALS: BP 106/73; PULSE 94; TEMP 37.3; O2SAT 97
[2022-03-16 09:34] VITALS: BMI 29.9
[2022-03-16] MEDS: sodium chloride 0.9% 1,000 ML 999 ML IV (09:50)
[2022-03-16 11:00] VITALS: BP 135/95; PULSE 90; RESP 16; TEMP 37.2; O2SAT 98
[2022-03-16 11:05] VITALS: BP 135/95; PULSE 91; RESP 16; TEMP 37.2; O2SAT 98
== END 2022-03-16 23:59 | disposition home or self-care (01) ==
LOC: ONCMED 10:01 → OPS 03-17 00:01
PROVIDERS: Internal Medicine Hematology & Oncology; Internal Medicine Medical Oncology; PCP Family Medicine; Visit Provider Specialist
DX: C34.81 Malignant neoplasm of overlapping sites of right bronchus and lung; Z79.899 Other long term (current) drug therapy
CPT/HCPCS: 36415; 36591; 36593; 77014; 77336; 77386; 80053; 85025; 96360; 96365; 96366; 96367; 96375; 96413; 96417; 99024; 99213; 99214; J1100; J1200; J1453; J1940; J2405; J2469; J2997; J3475; J3480; J3490; J7030; J7040; J7050; J9060; J9181

== ENCOUNTER 2022-03-17 08:22 | Outpatient (RCR) | payer MEDICARE, SELFPAY ==
[2022-03-17 09:05] VITALS: BP 105/76; PULSE 102; RESP 17; TEMP 37.8; O2SAT 97
[2022-03-17] MEDS: sodium chloride 0.9% 1,000 ML 999 ML IV (09:30)
[2022-03-17 10:11] VITALS: BP 104/80; PULSE 95; RESP 17; TEMP 37.7; O2SAT 96
[2022-03-18 09:00] VITALS: BP 128/84; PULSE 100; RESP 18; TEMP 38.4; O2SAT 96
[2022-03-18] MEDS: sodium chloride 0.9% 1,000 ML 999 ML IV (09:15)
--- NOTE | 2022-03-18 09:31 | PC.NURSE ---
patient is here today for hydration ordered by Dr. Desai. patient's temp this morning is 101.2/101.4 on the forehead under beanie hat and 100.4 at shinto to ear. patient states his temp was the same yesterday. He feels cold, does not report any other symptoms. patients HR 100. temp documented Friday at 99.2. Dr. Desai notified of his temp for today and yesterday, he requests patient to go to ER for evaluation for infection. I told this to the patient. He is skilled nursing done with ordered hydration today and then will go to ER when done. is with him today and agrees.
[2022-03-18 10:08] VITALS: BP 126/78; PULSE 95; RESP 18; TEMP 38; O2SAT 96
== END 2022-04-16 23:59 | disposition home or self-care (01) ==
LOC: GILAB 08:22
PROVIDERS: PCP Family Medicine; Visit Provider Internal Medicine Hematology & Oncology
DX: C34.2 Malignant neoplasm of middle lobe, bronchus or lung (principal)
CPT/HCPCS: 96360; J7030

== ENCOUNTER 2022-03-19 13:04 | Inpatient (IN) | payer MEDICARE, SELFPAY ==
[2022-03-19] VITALS (40 sets, daily range): BP systolic 89–129; BP diastolic 50–87; PULSE 104–141; RESP 6–28; TEMP 37–39.3; O2SAT 89–98
--- NOTE | 2022-03-19 13:03 | PC.NURSE ---
Arrived to unit via wc with oncology staff, AYESHA x4, transferred self to bed
--- NOTE | 2022-03-19 13:09 | XR_ITS ---
WS: [id number] Portable AP upright chest, 03/19/2022 Clinical Data: cough, fever Comparison: Portable chest, 02/28/2022 Findings: No nodules, masses or effusions are seen. The heart is normal. The pulmonary vascularity is not increased. No pneumonia or pneumothorax is seen. The left Port-A-Cath remains in the same positi on. The aortic arch and descending thoracic aorta show tortuosity. Monitor leads are on the chest wal l. There are orthopedic anchors in the left shoulder. XR/XR chest 1V portable [id number] Impression: 1. Clearing of bibasilar opacities. 2. Atherosclerosis.
--- NOTE | 2022-03-19 13:12 | P.HP_ITS ---
Providers/Chief Complaint Admitting Physician: Montrell Graff MD Primary Care Provider: Lianet Hannah MD Chief Complaint: [place] History of Present Illness Karl Martinez is a 66 year old male with metastatic small cell cancer presenting from oncology clinic with hypotension, tachycardia, and fever. Had been running some low-grade fevers last several days but got up to 103 ?F last night. He has been coughing more than usual. He received his last chemotherapy, around March 05 with cisplatin/etoposide followed by Neulasta. He is also getting radiation, with last treatment being around March 12. He has been having some difficulty eating, but still able to tolerate some pur?ed foods. He denies any headache. reports that with his high fever he seemed confused, but this is gone away. No recent issues with his port. He has been known to be MRSA PCR positive in the past. He has been losing weight recently secondary to difficulty with feeding. Occasionally gags and chokes when trying to eat. Review of Systems General: Reports: 10 or more systems reviewed and unremarkable except in HPI and below Const: Reports: fever(s), chills and malaise Eyes: Denies: change in vision ENMT: Reports: odynophagia Card: Denies: chest pain Resp: Reports: dyspnea and non-productive cough GI: Reports: nausea; Denies: abdominal pain : Denies: flank pain Musc: Denies: neck pain Skin/Breast: Denies: rash Neuro: Denies: headache(s) Psych: Denies: anxiety or depression Endo: Denies: polyuria Antoni/Lymph: Denies: easy bruising All/Imm: Denies: urticaria Medications/Allergies Home Medications Medication Instructions Recorded Confirmed Last Taken Type albuterol sulfate 90 mcg/actuation 2 puff inhalation Q6H PRN 12/28/21 03/14/22 01/07/22 Rx aerosol inhaler shortness of breath or wheezing #8.5 grams nebulizers #1 ea 01/02/22 03/14/22 01/07/22 Rx aspirin 81 mg tablet,delayed 81 mg PO QAM 01/07/22 03/14/22 02/26/22 History release oxycodone-acetaminophen 5 mg-325 1 - 2 tab PO .Q4-6H PRN pain 30 01/21/22 03/14/22 02/03/22 Rx mg tablet (Percocet) days #60 tabs prochlorperazine maleate 10 mg 10 mg PO Q4H PRN Mild Nausea #30 01/31/22 03/14/22 Unknown Rx tablet (Compazine) tabs allopurinol 100 mg tablet 100 mg PO BID #60 tabs 02/01/22 03/14/22 02/26/22 Rx ascorbic acid (vitamin C) 1,000 mg 1,000 mg PO QAM 02/04/22 03/14/22 02/26/22 History tablet (Vitamin C) cholecalciferol (vitamin D3) 25 25 mcg PO QAM 02/04/22 03/14/22 02/26/22 History mcg (1,000 unit) tablet (Vitamin D3) cyanocobalamin (vitamin B-12) 1,000 mcg PO QAM 02/04/22 03/14/22 02/26/22 History 1,000 mcg tablet (Vitamin B-12) multivitamin 1 tab PO QAM 02/04/22 03/14/22 02/26/22 History umeclidinium 62.5 mcg-vilanterol 1 inh inhalation QAM 02/04/22 03/14/22 02/27/22 History 25 mcg/actuation powdr for inhalation (Anoro Ellipta) lidocaine-prilocaine 2.5 %-2.5 % 1 applic topical .COMPLEX #30 grams 02/06/22 03/14/22 Unknown Rx topical cream rivaroxaban 10 mg tablet (Xarelto) 20 mg PO BEDTIME #30 tabs 02/13/22 03/14/22 02/26/22 Rx gabapentin 300 mg capsule 300 mg PO BEDTIME 30 days #30 caps 02/21/22 03/14/22 02/26/22 Rx nitroglycerin 0.4 mg sublingual 0.4 mg sublingual Q5M PRN Chest 02/21/22 03/14/22 Unknown Rx tablet (Nitrostat) Pain #25 tabs omeprazole 20 mg capsule,delayed 20 mg PO QAM 90 days #90 caps 02/21/22 03/14/22 02/26/22 Rx release tizanidine 2 mg tablet 2 mg PO Q8H PRN muscle spasticity 02/21/22 03/14/22 Unknown Rx #30 tabs oxycodone 5 mg/5 mL oral solution 5 mg (5 mL) PO Q6H PRN pain 2 02/25/22 03/14/22 Unknown Rx weeks #250 mL lidocaine HCl 2 % mucosal solution 5 ml mucous membrane QID PRN pain 02/26/22 03/14/22 Unknown Rx (Lidocaine Viscous) 1 week #80 mL nystatin 100,000 unit/mL oral 5 ml PO TID #200 mL 02/26/22 03/14/22 Unknown Rx suspension mupirocin 2 % ointment topical kit See Rx Instructions .Route 03/04/22 03/14/22 Unknown Rx .COMPLEX #1 ea atorvastatin 40 mg tablet 20 mg PO BEDTIME 03/12/22 03/14/22 Unknown History Allergies Allergy/AdvReac Type Severity Reaction Status Date / Time Iccwrik-[id number]-DwY Reductase Allergy Unknown Verified 03/14/22 09:23 Inhibitor PFSH Acute PFSH: Medical History Abdominal aortic aneurysm Carpal tunnel syndrome on both sides Chronic back pain Congenital umbilical hernia COPD (chronic obstructive pulmonary disease) Coronary artery disease GERD (gastroesophageal reflux disease) Hypertension Past heart attack Port-A-Cath in place Small cell lung cancer, right middle lobe Surgical History History of bilateral carpal tunnel release History of endovascular stent graft for abdominal aortic aneurysm (AAA) History of heart artery stent History of tonsillectomy and adenoidectomy Hx of umbilical hernia repair S/P AAA repair using bifurcation graft S/P rotator cuff repair Family History Family/Other Cancer Father CAD (coronary artery disease) Stroke Brother CAD (coronary artery disease) Brother CAD (coronary artery disease) Diabetes Sister CAD (coronary artery disease) Cancer Chronic kidney disease (CKD) Diabetes Sister Cancer Diabetes Mother Stroke Other Hyperlipidemia Hypertension Psychiatric illness Denies family history of Clotting disorder Dementia Suicide Anesthesia complication Bleeding disorder Lung disease Social History Smoking and tobacco status: former smoker (smoked x 50+ years) Alcohol intake: never Physical Exam Narrative: General exam is a white male, no distress, conversive. HEENT: Atraumatic and normocephalic. Oropharynx no obvious thrush currently Neck is supple no lymphadenopathy or thyromegaly Cardiovascular regular rate and rhythm, no murmur, port noted left chest Lungs diminished breath sounds bilaterally but no wheezes or crackles Abdomen is soft, positive bowel sounds. No obvious organomegaly. exams deferred Extremities no cyanosis clubbing or edema, cap refill brisk Skin no rash Neuro no focal deficits Data Other Labs: White blood cell count 0.7, neutrophil count 230 Hemoglobin 8.9 Platelets 78,000 Sodium 135, potassium 3.2, chloride 98, bicarb 23, BUN 12, creatinine 0.9 Calcium, LFTs normal Urinalysis pending Chest x-ray, COVID/flu PCR ordered and pending Blood culture ordered A&P Assessment and plan (1) Fever and neutropenia: Patient with significant fever and neutropenia. Last chemotherapy given 2 weeks ago and subsequent radiation Blood cultures x2 Chest x-ray Await urinalysis Initiate cefepime and vancomycin COVID/flu PCR Reverse isolation Had hypotension in oncology office, but this resolved with 1 L fluid (2) Anemia: Continue to follow. No evidence of active blood loss (3) Thrombocytopenia: Likely secondary to chemotherapy. Continue to follow. No evidence of active blood loss. (4) Small cell lung cancer: Recent issues with hydration, and difficulty swallowing with the radiation he has been receiving Continue hydration here with D5 normal saline with 20 mill equivalents of potassium Plan Hypokalemia. Supplement. Check magnesium level tomorrow. Dysphagia. Continue pur?ed diet. Speech therapy evaluation. Other medical problems as outlined in past medical history Full code SCDs for DVT prophylaxis. Anticoagulation contraindicated secondary to thrombocytopenia. Attestations Medical Necessity Statement*: Will need greater than 2 midnight stay for evaluation and treatment of fever and neutropenia Coding Level of Care Code Acute Furniture Upholsterer Apprentice for g Fwd Diagnoses Fever and neutropenia D70.9; R50.81 Anemia D64.9 Thrombocytopenia D69.6 Small cell lung cancer C34.90
[2022-03-19] MEDS: cefepime 2,000 MG in sodium chloride 0.9% (plus) 50 ML 100 MG IV (14:57)
[2022-03-19] MEDS: lidocaine 1% 5 ML in potassium chloride premix 100 ML 25 ML IV (14:58)
[2022-03-19] MEDS: sodium chlor 0.9% + KCl 20 mEq 20 MEQ/1,000 ML BAG 125 MEQ IV (15:10)
[2022-03-19] MEDS: nystatin 100,000 unit/mL UDC 5 mL 500000 UNIT PO ×2 (16:03→20:00)
[2022-03-19] MEDS: allopurinol 100 mg Tablet PO (18:08)
[2022-03-19] MEDS: gabapentin 300 mg Capsule PO (20:00)
[2022-03-19] MEDS: acetaminophen 650 mg/20.3 mL UDC PO (20:00)
[2022-03-19] MEDS: atorvastatin 40 mg Tablet 20 MG PO (20:00)
[2022-03-19] MEDS: ondansetron 2 mg/ML SDV 2 mL 4 MG IVP (20:06)
[2022-03-19 20:07] LABS: Adenovirus Not Detected (NOT DETECT); Chlamydia Pneumoniae Not Detected (NOT DETECT); Coronavirus 229E,HKU1,NL63,OC4 Not Detected (NOT DETECT); Human Metapneumovirus Not Detected (NOT DETECT); Human Rhinovirus/Enterovirus Not Detected (NOT DETECT); Influenza A Not Detected (NOT DETECT); Influenza A H1 Not Detected (NOT DETECT); Influenza A H1-2009 Not Detected (NOT DETECT); Influenza A H3 Not Detected (NOT DETECT); Influenza B Not Detected (NOT DETECT); Mycoplasma Pneumoniae Not Detected (NOT DETECT); Parainfluenza Virus Type 1 Not Detected (NOT DETECT); Parainfluenza Virus Type 2 Not Detected (NOT DETECT); Parainfluenza Virus Type 3 Not Detected (NOT DETECT); Parainfluenza Virus Type 4 Not Detected (NOT DETECT); Respiratory Syncytial Virus A Not Detected (NOT DETECT); Respiratory Syncytial Virus B Not Detected (NOT DETECT); SARS-COV-2 Not Detected (NOT DETECT)
[2022-03-20] VITALS (49 sets, daily range): BP systolic 96–134; BP diastolic 56–88; PULSE 73–113; RESP 1–26; TEMP 36.4–37.9; O2SAT 86–98
[2022-03-20] MEDS: cefepime 2,000 MG in sodium chloride 0.9% (plus) 50 ML 100 MG IV ×2 (00:32→13:18)
[2022-03-20] MEDS: tizanidine 4 mg Tablet 2 MG PO (01:43)
[2022-03-20] MEDS: sodium chlor 0.9% + KCl 20 mEq 20 MEQ/1,000 ML BAG 125 MEQ IV ×2 (02:12→10:58)
[2022-03-20] MEDS: vancomycin 1,250 MG/250 ML PIGGYBACK 250 MG IV ×2 (02:15→16:33)
[2022-03-20 04:05] LABS: Basophils % 1.2 %; Eosinophils % 1.2 %; Hematocrit 22.5 % (42.0-52.0); Hemoglobin 7.2 g/dL (11.7-16.6); Lymphocytes # 0.1 10^3/uL (0.8-4.8); Lymphocytes % 14.6 %; Mean Corpuscular Hemoglobin 27.8 pg (28.0-34.0); Mean Corpuscular Volume 86.9 fl (80-94); Mean Platelet Volume 11.8 fL (7.4-10.4); Monocytes # 0.2 10^3/uL (0.2-0.9); Monocytes % 24.4 %; Neutrophils % 57.4 %; Nucleated Red Blood Cells % 0 %; Platelet Count 72 10^3/cmm (130-400); Red Blood Count 2.59 10^6/uL (4.1-5.3); Red Cell Distribution Width 15.9 % (12.1-15.1)
[2022-03-20 04:33] LABS: Magnesium 1.5 mg/dL (1.7-2.3)
[2022-03-20 04:36] LABS: Alanine Aminotransferase 12 U/L (0-41); Albumin Level 2.9 g/dL (3.5-5.2); Alkaline Phosphatase 63 U/L (40-130); Anion Gap 14.6 (5-19); Aspartate Amino Transferase 23 U/L (0-40); Blood Urea Nitrogen 13 mg/dL (8-23); Carbon Dioxide 22 mmol/L (22-29); Chloride 105 mmol/L (98-107); Globulin 2.5 g/dL (1.3-4.6); Glomerular Filtration Rate 112.5 mL/min (90-130); Glucose 86 mg/dL (65-115); Osmolality Calculated 285 mOsm/kg (285-295); Potassium 3.6 mmol/L (3.5-5.1); Sodium 138 mmol/L (136-145); Total Bilirubin 0.6 mg/dL (0.15-1.2); Total Protein 5.4 g/dL (6.6-8.7)
[2022-03-20 05:32] LABS: Neutrophils # 0.47 10^3/uL (1.8-7.7); White Blood Count 0.8 10^3/uL (4.0-10.0)
[2022-03-20] MEDS: aspirin 81 mg EC Tablet PO (05:52)
[2022-03-20] MEDS: pantoprazole DR 40 mg Tablet PO (05:52)
[2022-03-20] MEDS: magnesium sulfate premix 2 GM/50 ML PIGGYBACK IV (08:15)
[2022-03-20] MEDS: nystatin 100,000 unit/mL UDC 5 mL 500000 UNIT PO ×4 (08:20→20:30)
[2022-03-20] MEDS: allopurinol 100 mg Tablet PO ×2 (08:20→17:36)
[2022-03-20] MEDS: lidocaine 2% viscous 1.667 ML, diphenhydrAMINE oral liq 4.165 MG, aluminum-mag hydrox-s... MUCOUS MEM (09:33)
--- NOTE | 2022-03-20 10:17 | PM.PN ---
Subjective Subjective: Karl reports he is doing okay. Wanting some Magic mouthwash so he can drive to eat. Feels like he has a little bit more energy than yesterday. Medications: Reviewed: Yes Vitals/I&O/Wt Last Vital Signs Temp 100.2 F H 03/20/22 06:00 Pulse 101 H 03/20/22 09:15 Resp 16 03/20/22 09:15 BP 118/77 03/20/22 08:30 Pulse Ox 92 03/20/22 09:15 O2 Del Method 03/20/22 09:15 03/19/22 03/20/22 03/20/22 22:59 06:59 14:59 Intake Total 955.00 / 955.00 1306.25 / 2261.25 Output Total 400 / 400 550 / 950 Balance 555.00 / 555.00 756.25 / 1311.25 Weight last 48 hrs Weight 83.007 kg Weight 83.007 kg Physical Exam Narrative: General exam is a white male, no distress, conversive. T-max 101.2 Neck is supple no lymphadenopathy or thyromegaly Cardiovascular regular rate and rhythm, no murmur, port noted left chest Lungs diminished breath sounds bilaterally but no wheezes or crackles Abdomen is soft, positive bowel sounds. No obvious organomegaly. Extremities no cyanosis clubbing or edema, cap refill brisk Skin no rash Neuro no focal deficits Data 03/20/22 03:17 03/20/22 03:17 Micro: Microbiology 03/19/22 12:23 Blood Culture - Preliminary Blood SPECIMEN COLLECTED 03/19/22 11:52 Blood Culture - Preliminary Blood SPECIMEN COLLECTED A&P Assessment and plan (1) Fever and neutropenia: Patient with significant fever and neutropenia. Last chemotherapy given 2 weeks ago and subsequent radiation ANC has increased to 470 Blood cultures x2 have been obtained and are negative to date Chest x-ray no infiltrate Urinalysis no infection Continue cefepime and vancomycin COVID/flu PCR negative Continue reverse isolation Had hypotension in oncology office, but this resolved with 1 L fluid (2) Anemia: Continue to follow. No evidence of active blood loss Hemoglobin drifted down to 7.2. Transfuse 1 unit irradiated leukocyte deplete (3) Thrombocytopenia: Likely secondary to chemotherapy. Continue to follow. No evidence of active blood loss. Stable currently (4) Small cell lung cancer: Recent issues with hydration, and difficulty swallowing with the radiation he has been receiving Continue hydration here with D5 normal saline with 20 mill equivalents of potassium Plan Hypokalemia. Supplemented and normal. Magnesium slightly low and will supplement today. Dysphagia. Continue pur?ed diet. Speech therapy evaluation. Other medical problems as outlined in past medical history Full code SCDs for DVT prophylaxis. Anticoagulation contraindicated secondary to thrombocytopenia. Transfer out of ICU. Attestations Medical Necessity Statement*: Needs continued hospitalization for IV antibiotics secondary to fever and neutropenia. Coding Level of Care Code Acute Telegraph And Teletype Operator for g Fwd Diagnoses Fever and neutropenia D70.9; R50.81 Anemia D64.9 Thrombocytopenia D69.6 Small cell lung cancer C34.90
--- NOTE | 2022-03-20 10:39 | PC.CHAP ---
Pastoral Care Encounter/Spiritual Assessment Type of Contact [] Declined set up inspector visit [] Patient/Family/Request visit [] Outpatient visit [] Follow-up visit [] Physician referral [] Code/Alert [x] Routine visit [] Staff referral [] Actively dying [] Patient sleeping [] Family support [] [] Out of room [] Palliative care [] [] Receiving care in room [] Pre-surgical visit [] Trauma [] Long length of stay [x] ICU visit [x] Other: setting up in bed.. preparing to have breakfast... enjoyed visit Relational/Emotional Strength [] Patient feels connected with others/family/visitors/staff [] Distress [] Loneliness/isolation [] Abandonment Spirituality of Patient [] Person of [place] [] Attends Adventist of their [place] [] Believes in Prayer [] Reads Bible or Baptism materials [] There are Spiritual issues to be addressed Asset Liability Analyst Interventions [x] Prayer [] Active listening [] Non-anxious presence [] Spiritual/emotional support [] Crisis/trauma care [] Spiritual counseling [] Bereavement support [] Provided bereavement packet [] Provided Bible/devotional materials [] Provided toy/stuffed animal, coloring book to patient or family member [] Provided Communion [] Anointing/[place] [] Salvation [x] Completed spiritual assessment [] Other: Impact on Illness or Injury [] Angry [] Fearful [] Anxious [] Often cries [] Exhaustion [] Unable to work [] Unable to attend gnosticist [] Unable to walk/stand [] Unable to read [] Unable to drive [] Unable to eat/drink [] Unable to sleep [] Unable to be with family [] Patient intubated [] Other: Summary Time spent with patient
[2022-03-20] MEDS: oxyCODONE 5 mg IR Tab/Cap PO (12:10)
[2022-03-20] MEDS: sodium chloride 0.9% 100 mL Bag 50 ML IV (14:54)
[2022-03-20] MEDS: albuterol 2.5 mg/3 mL Neb INHALATION (21:35)
[2022-03-20] MEDS: atorvastatin 40 mg Tablet 20 MG PO (22:16)
[2022-03-20] MEDS: gabapentin 300 mg Capsule PO (22:16)
[2022-03-21] VITALS (14 sets, daily range): BP systolic 100–133; BP diastolic 63–86; PULSE 79–109; RESP 16–20; TEMP 36.4–37.9; O2SAT 90–98
[2022-03-21] MEDS: cefepime 2,000 MG in sodium chloride 0.9% (plus) 50 ML 100 MG IV ×2 (01:36→14:31)
[2022-03-21] MEDS: acetaminophen 650 mg/20.3 mL UDC PO (01:36)
[2022-03-21] MEDS: sodium chlor 0.9% + KCl 20 mEq 20 MEQ/1,000 ML BAG 125 MEQ IV ×2 (01:37→03:12)
[2022-03-21 02:00] LABS: Basophils % 0.8 %; Eosinophils % 3.2 %; Hematocrit 24.4 % (42.0-52.0); Lymphocytes # 0.1 10^3/uL (0.8-4.8); Lymphocytes % 7.9 %; Mean Corpuscular HGB Conc 32.8 g/dL (30.0-36.0); Mean Corpuscular Volume 85.3 fl (80-94); Monocytes # 0.3 10^3/uL (0.2-0.9); Monocytes % 20.6 %; Neutrophils % 66.7 %; Nucleated Red Blood Cells % 0 %; Platelet Count 75 10^3/cmm (130-400); Positive M 1; Red Blood Count 2.86 10^6/uL (4.1-5.3); Red Cell Distribution Width 15.6 % (12.1-15.1); White Blood Count 1.3 10^3/uL (4.0-10.0)
[2022-03-21 02:33] LABS: Alanine Aminotransferase 14 U/L (0-41); Albumin Level 2.9 g/dL (3.5-5.2); Alkaline Phosphatase 60 U/L (40-130); Anion Gap 13.3 (5-19); Aspartate Amino Transferase 25 U/L (0-40); Blood Urea Nitrogen 15 mg/dL (8-23); Calcium 7.9 mg/dL (8.5-10.5); Carbon Dioxide 22 mmol/L (22-29); Chloride 106 mmol/L (98-107); Globulin 2.5 g/dL (1.3-4.6); Glomerular Filtration Rate 134.4 mL/min (90-130); Glucose 85 mg/dL (65-115); Osmolality Calculated 286 mOsm/kg (285-295); Potassium 3.3 mmol/L (3.5-5.1); Sodium 138 mmol/L (136-145); Total Bilirubin 0.8 mg/dL (0.15-1.2); Total Protein 5.4 g/dL (6.6-8.7); Vancomycin Trough 11.8 ug/mL (10-15)
[2022-03-21] MEDS: vancomycin 1,250 MG/250 ML PIGGYBACK 250 MG IV ×2 (03:12→15:41)
[2022-03-21 05:34] LABS: Neutrophils # 0.84 10^3/uL (1.8-7.7)
[2022-03-21] MEDS: aspirin 81 mg EC Tablet PO (05:50)
[2022-03-21] MEDS: pantoprazole DR 40 mg Tablet PO (05:50)
[2022-03-21] MEDS: nystatin 100,000 unit/mL UDC 5 mL 500000 UNIT PO ×4 (08:57→20:23)
[2022-03-21] MEDS: allopurinol 100 mg Tablet PO ×2 (08:57→19:03)
[2022-03-21] MEDS: oxyCODONE 5 mg IR Tab/Cap PO (09:42)
[2022-03-21] MEDS: potassium chloride oral liq 20 mEq/15 mL UDC 40 MEQ PO (09:42)
--- NOTE | 2022-03-21 10:52 | P.PN_ITS ---
Subjective Subjective: Karl reports he feels little stronger today. No complaints of pain. Able to eat small amounts. Medications: Reviewed: Yes Vitals/I&O/Wt Last Vital Signs Temp 97.6 F 03/21/22 07:36 Pulse 90 03/21/22 07:46 Resp 18 03/21/22 09:42 BP 117/78 03/21/22 07:36 Pulse Ox 97 03/21/22 07:46 O2 Del Method 03/21/22 07:46 O2 Flow Rate 2 03/21/22 08:00 03/20/22 03/21/22 03/21/22 22:59 06:59 14:59 Intake Total 1490 / 2590 197.917 / 2787.917 420 / 420 Balance 1490 / 2590 197.917 / 2787.917 420 / 420 Weight last 48 hrs Weight 86.636 kg Weight 83.007 kg Weight 83.007 kg Physical Exam Narrative: General exam is a white male, no distress, conversive. T-max 100.2 Neck is supple no lymphadenopathy or thyromegaly Cardiovascular regular rate and rhythm, no murmur, port noted left chest Lungs diminished breath sounds bilaterally but no wheezes or crackles Abdomen is soft, positive bowel sounds. No obvious organomegaly. Extremities no cyanosis clubbing or edema, cap refill brisk Skin no rash Neuro no focal deficits Data 03/21/22 01:33 03/21/22 01:33 Micro: Microbiology 03/19/22 12:23 Blood Culture - Preliminary Blood NEGATIVE TO DATE 03/19/22 11:52 Blood Culture - Preliminary Blood NEGATIVE TO DATE A&P Assessment and plan (1) Fever and neutropenia: Patient with significant fever and neutropenia. Last chemotherapy given 2 weeks ago and subsequent radiation ANC has increased to 840 Blood cultures x2 have been obtained and are negative to date Chest x-ray no infiltrate Urinalysis no infection Continue cefepime and vancomycin COVID/flu PCR negative Continue reverse isolation Had hypotension in oncology office, but this resolved with 1 L fluid Possible discharge tomorrow if continues to remain stable, and afebrile (2) Anemia: Continue to follow. No evidence of active blood loss Transfused yesterday and hemoglobin increased appropriately to 8.0 (3) Thrombocytopenia: Likely secondary to chemotherapy. Continue to follow. No evidence of active blood loss. Stable currently (4) Small cell lung cancer: Recent issues with hydration, and difficulty swallowing with the radiation he has been receiving Continue hydration here with D5 normal saline with 20 mill equivalents of potassium. Reduce rate Plan Hypokalemia. Supplement today Dysphagia. Continue pur?ed diet. Speech therapy evaluation appreciated History of CVA, renal infarct. Platelet count and hemoglobin relatively stable. Reinitiate Xarelto at lower dose tonight Other medical problems as outlined in past medical history Full code SCDs for DVT prophylaxis. Anticoagulation contraindicated secondary to thrombocytopenia. Transfer out of ICU. Attestations Medical Necessity Statement*: Requires continued hospitalization with fever neutropenia awaiting cultures Coding Level of Care Code Acute Television News Reporter for g Fwd Diagnoses Fever and neutropenia D70.9; R50.81 Anemia D64.9 Thrombocytopenia D69.6 Small cell lung cancer C34.90
[2022-03-21] MEDS: sodium chlor 0.9% + KCl 20 mEq 20 MEQ/1,000 ML BAG 75 MEQ IV (11:21)
[2022-03-21] MEDS: ondansetron 2 mg/ML SDV 2 mL 4 MG IVP (13:12)
[2022-03-21] MEDS: lidocaine 2% viscous 1.667 ML, diphenhydrAMINE oral liq 4.165 MG, aluminum-mag hydrox-s... MUCOUS MEM (16:14)
[2022-03-21] MEDS: rivaroxaban 10 mg Tablet 15 MG PO (20:23)
[2022-03-21] MEDS: gabapentin 300 mg Capsule PO (20:23)
[2022-03-21] MEDS: atorvastatin 40 mg Tablet 20 MG PO (20:24)
[2022-03-21] MEDS: albuterol 2.5 mg/3 mL Neb INHALATION (20:53)
[2022-03-22] VITALS (22 sets, daily range): BP systolic 107–132; BP diastolic 69–87; PULSE 74–106; RESP 17–18; TEMP 36.3–37.6; O2SAT 89–98
[2022-03-22] MEDS: cefepime 2,000 MG in sodium chloride 0.9% (plus) 50 ML 100 MG IV (00:24)
[2022-03-22] MEDS: sodium chlor 0.9% + KCl 20 mEq 20 MEQ/1,000 ML BAG 75 MEQ IV (00:24)
[2022-03-22] MEDS: vancomycin 1,250 MG/250 ML PIGGYBACK 250 MG IV (02:45)
[2022-03-22] MEDS: pantoprazole DR 40 mg Tablet PO (05:31)
[2022-03-22] MEDS: aspirin 81 mg EC Tablet PO (05:31)
[2022-03-22 06:00] LABS: Basophils % 0.8 %; Eosinophils # 0.1 10^3/uL (0.0-0.8); Eosinophils % 5.5 %; Hemoglobin 7.4 g/dL (11.7-16.6); Lymphocytes # 0.2 10^3/uL (0.8-4.8); Lymphocytes % 15.6 %; Mean Corpuscular HGB Conc 32.2 g/dL (30.0-36.0); Mean Corpuscular Hemoglobin 27.5 pg (28.0-34.0); Mean Corpuscular Volume 85.5 fl (80-94); Mean Platelet Volume 11.5 fL (7.4-10.4); Monocytes # 0.3 10^3/uL (0.2-0.9); Monocytes % 20.3 %; Nucleated Red Blood Cells % 0 %; Platelet Count 94 10^3/cmm (130-400); Red Blood Count 2.69 10^6/uL (4.1-5.3); Red Cell Distribution Width 15.9 % (12.1-15.1); White Blood Count 1.3 10^3/uL (4.0-10.0)
[2022-03-22 06:09] LABS: Neutrophils # 0.73 10^3/uL (1.8-7.7)
[2022-03-22 06:15] LABS: Anion Gap 11.7 (5-19); Blood Urea Nitrogen 12 mg/dL (8-23); Carbon Dioxide 21 mmol/L (22-29); Chloride 105 mmol/L (98-107); Glomerular Filtration Rate 134.4 mL/min (90-130); Glucose 81 mg/dL (65-115); Magnesium 1.6 mg/dL (1.7-2.3); Osmolality Calculated 277 mOsm/kg (285-295); Potassium 3.7 mmol/L (3.5-5.1); Sodium 134 mmol/L (136-145)
[2022-03-22] MEDS: allopurinol 100 mg Tablet PO (09:05)
[2022-03-22] MEDS: magnesium sulfate premix 2 GM/50 ML PIGGYBACK IV (09:05)
[2022-03-22] MEDS: nystatin 100,000 unit/mL UDC 5 mL 500000 UNIT PO ×2 (09:05→13:43)
[2022-03-22] MEDS: sodium chloride 0.9% 100 mL Bag 50 ML IV (09:13)
--- NOTE | 2022-03-22 11:41 | PM.DCS ---
Discharge Providers Date of Admission: 03/19/22 13:04 Date of Discharge: March 22, 2022 Attending Provider at Admission: Montrell Graff MD Attending Provider at Discharge: Montrell Graff MD Primary Care Provider: Lianet Hannah MD Diagnoses at Discharge Discharge Diagnosis (1) Fever and neutropenia: Status: Acute (2) Anemia: Status: Acute (3) Thrombocytopenia: Status: Acute (4) Small cell lung cancer: Status: Acute Reason for Visit Reason for Visit: [facility] Hospital Course Hospital Course Karl is a 66-year-old white male who presented to the hospital with fever and neutropenia. He been getting chemo therapy as well as radiation for his lung cancer. ANC was less than 500. He was febrile with a temperature of over 102 ?F. No obvious infection was noted. He was placed on vancomycin and cefepime and cultures were obtained. Throughout his hospital stay he had gradual improvement. Fevers went away. ANC became greater than 500. He did require 1 unit of blood initially, and another 2 units at discharge for anemia likely associated with his chemoradiation. By March 22 he was feeling much better, cultures were negative, and he was requested to go home. It was thought he could finish 5 days of Levaquin as an outpatient, following up with his oncologist next week for repeat blood counts. In total he received 3 units of blood at the hospital. Other tests done at the hospital included a COVID and flu PCR which were negative. Physical Exam Narrative: General exam is no distress Neck is supple Cardiovascular regular rate and rhythm without murmur Lungs clear Abdomen is soft, positive bowel sounds Extremities no cyanosis clubbing or edema Skin without rash Discharge Data Studies Completed and Pending Completed Studies During Hospitalization Category Date Time Status XR chest 1V portable [id number] Routine Exams 03/19/22 13:09 Completed Pending at discharge Category Date Time Status Blood Culture Stat Lab 03/19/22 12:23 Results Irradiated Leuko Red RBC Routine Lab 03/20/22 09:04 Results Type and Screen Routine Lab 03/20/22 09:04 Results Radiology Impressions Chest X-Ray 03/19/22 13:09 Impression: 1. Clearing of bibasilar opacities. 2. Atherosclerosis. Laboratory Results WBC 1.3 10^3/uL (4.0-10.0) L 03/22/22 05:23 RBC 2.69 10^6/uL (4.1-5.3) L 03/22/22 05:23 Hgb 7.4 g/dL (11.7-16.6) L 03/22/22 05:23 Hct 23.0 % (42.0-52.0) L 03/22/22 05:23 MCV 85.5 fl (80-94) 03/22/22 05:23 MCH 27.5 pg (28.0-34.0) L 03/22/22 05: MCHC 32.2 g/dL (30.0-36.0) 03/22/22 05:23 RDW 15.9 % (12.1-15.1) H 03/22/22 05:23 Plt Count 94 10^3/cmm (130-400) L 03/22/22 05: MPV 11.5 fL (7.4-10.4) H 03/22/22 05:23 Neut % (Auto) 57.0 % 03/22/22 05:23 Lymph % (Auto) 15.6 % 03/22/22 05:23 Metcalfe % (Auto) 20.3 % 03/22/22 05:23 Eos % (Auto) 5.5 % 03/22/22 05:23 Baso % (Auto) 0.8 % 03/22/22 05:23 Neut # (Auto) 0.73 10^3/uL (1.8-7.7) L* 03/22/22 05:23 Lymph # (Auto) 0.2 10^3/uL (0.8-4.8) L 03/22/22 05:23 Metcalfe # (Auto) 0.3 10^3/uL (0.2-0.9) 03/22/22 05:23 Eos # (Auto) 0.1 10^3/uL (0.0-0.8) 03/22/22 05:23 Baso # (Auto) 0.0 10^3/uL (0.0-0.1) 03/22/22 05:23 Nucleated RBC % (auto) 0 % 03/22/22 05: Nucleated RBCs # 0.0 /100WBC 03/22/22 05: Sodium 134 mmol/L (136-145) L 03/22/22 05:23 Potassium 3.7 mmol/L (3.5-5.1) 03/22/22 05:23 Chloride 105 mmol/L (98-107) 03/22/22 05:23 Carbon Dioxide 21 mmol/L (22-29) L 03/22/22 05:23 Anion Gap 11.7 (5-19) 03/22/22 05:23 BUN 12 mg/dL (8-23) 03/22/22 05:23 Creatinine 0.6 mg/dL (0.7-1.2) L 03/22/22 05:23 GFR Calculation 134.4 mL/min (90-130) H 03/22/22 05:23 Glucose 81 mg/dL (65-115) 03/22/22 05: Calculated Osmolality 277 mOsm/kg (285-295) L 03/22/22 05:23 Calcium 8.0 mg/dL (8.5-10.5) L 03/22/22 05: Magnesium 1.6 mg/dL (1.7-2.3) L 03/22/22 05:23 Total Bilirubin 0.8 mg/dL (0.15-1.2) 03/21/22 01:33 AST 25 U/L (0-40) 03/21/22 01:33 ALT 14 U/L (0-41) 03/21/22 01:33 Alkaline Phosphatase 60 U/L (40-130) 03/21/22 01:33 Total Protein 5.4 g/dL (6.6-8.7) L 03/21/22 01:33 Albumin 2.9 g/dL (3.5-5.2) L 03/21/22 01:33 Globulin 2.5 g/dL (1.3-4.6) 03/21/22 01:33 Vancomycin Trough 11.8 ug/mL (10-15) 03/21/22 01:33 Coronavirus 229E (PCR) Not detected (NOT DETECT) 03/19/22 18:10 SARS-CoV-2 (PCR) Not detected (NOT DETECT) 03/19/22 18:10 Blood Type O Positive 03/20/22 09:04 Rho(D) Type Positive 03/20/22 09:04 Antibody Screen Negative 03/20/22 09:04 Crossmatch See Detail 03/20/22 09:04 Vitals Last Vital Signs Temp 97.9 F 03/22/22 07:52 Pulse 80 03/22/22 08:22 Resp 18 03/22/22 08:22 BP 112/72 03/22/22 07:52 Pulse Ox 96 03/22/22 08:22 O2 Del Method 03/22/22 08:22 O2 Flow Rate 1.5 03/22/22 08:22 Discharge Plan Discharge Patient Disposition: Home Condition: Stable Prescriptions: New levofloxacin 750 mg tablet 750 mg PO DAILY 5 Days Qty: 5 0RF Continued albuterol sulfate 90 mcg/actuation HFA aerosol inhaler 2 puff inhalation Q6H PRN (Reason: shortness of breath or wheezing) Qty: 8.5 0RF (DME) nebulizers Misc See Rx Instructions .MEDSUPPLY Qty: 1 0RF Rx Instructions: As directed gabapentin 300 mg capsule 300 mg PO BEDTIME 30 Days Qty: 30 2RF omeprazole 20 mg capsule,delayed release(DR/EC) 20 mg PO QAM 90 Days Qty: 90 1RF Nitrostat 0.4 mg tablet, sublingual 0.4 mg SUBLINGUAL Q5M PRN (Reason: Chest Pain) Qty: 25 0RF Rx Instructions: do not exceed 3 doses per episode tizanidine 2 mg tablet 2 mg PO Q8H PRN (Reason: muscle spasticity) Qty: 30 1RF aspirin 81 mg tablet,delayed release (DR/EC) 81 mg PO QAM oxycodone-acetaminophen [Percocet] 5-325 mg tablet 1 - 2 tab PO .Q4-6H PRN (Reason: pain) 30 Days Qty: 60 0RF allopurinol 100 mg tablet 100 mg PO BID Qty: 60 0RF lidocaine-prilocaine 2.5-2.5 % cream 1 applic topical .COMPLEX Qty: 30 0RF Rx Instructions: Apply quarter sized amount 30-45 minutes prior to port access. Cover with cellophane after application. Xarelto 10 mg tablet 20 mg PO BEDTIME Qty: 30 3RF oxycodone 5 mg/5 mL solution 5 mg PO Q6H PRN (Reason: pain) 14 Days Qty: 250 0RF lidocaine HCl [Lidocaine Viscous] 2 % solution 5 ml mucous membrane QID PRN (Reason: pain) 7 Days Qty: 80 5RF Rx Instructions: Add 80cc Benadryl and 80cc Maalox - Magic Mouthwash. Swallow nystatin 100,000 unit/mL suspension 5 ml PO TID Qty: 200 0RF Rx Instructions: swish and swallow atorvastatin 40 mg tablet 20 mg PO BEDTIME prochlorperazine maleate [Compazine] 10 mg tablet 10 mg PO Q4H PRN (Reason: Mild Nausea) Qty: 30 3RF Anoro Ellipta 62.5-25 mcg/actuation blister with device 1 inh inhalation QAM mupirocin 2 % ointment kit See Rx Instructions .ROUTE .COMPLEX Qty: 1 0RF Rx Instructions: Nasal, armpit folds, groin folds daily for 5 days in a month for 6 months Discharge Orders: Discharge Order (Routine); Ordered 03/22/22 Ordered By: Montrell Graff Referrals: Ayla Desai MD [Staff Physician] - 4-7 days Lianet Hannah MD [Primary Care Provider] - 4-7 days Discharge Diet: Usual diet Discharge Activity: Increase activity as tolerated Patient Instructions: Opioid Safety Activity Restrictions/Additional Instructions: Take all medicine as prescribed CBC and BMP on Friday Follow-up with Dr. Desai, primary care provider 4 to 7 days May discharge after blood transfusion completed Home oxygen evaluation prior to discharge Patient's Health Concerns: Fever Assessment: Now resolved, no evidence of definitive infection Plan of Treatment: Finish short course of antibiotics Discharge Attestations Time Spent in Discharge Care*: greater than 30 min Quality Metrics Clinical Quality Measures [ No reported AMI, CVA or VTE this stay] Coding Level of Care Code Acute Chg FW DC note Diagnoses Fever and neutropenia D70.9; R50.81 Anemia D64.9 Thrombocytopenia D69.6 Small cell lung cancer C34.90
--- NOTE | 2022-03-22 12:32 | PC.SOCIAL ---
Pg 2 IMM Explained to pt Pg 2 IMM. No questions voiced. Provided pt a copy. Initialed, dated, & timed a copy & placed in chart.
[2022-03-22] MEDS: sodium chloride 0.9% 100 mL Bag IV (14:29)
== END 2022-03-22 17:20 | disposition home or self-care (01) | DRG 809 ==
LOC: ICU 03-20 10:07 → MEDSURG 03-20 16:34
PROVIDERS: Admitting Provider Internal Medicine; PCP Family Medicine; Visit Provider Internal Medicine
DX: D70.1 Agranulocytosis secondary to cancer chemotherapy (principal); C34.2 Malignant neoplasm of middle lobe, bronchus or lung; T45.1X5A Adverse effect of antineoplastic and immunosuppressive drugs, initial encounter; I95.9 Hypotension, unspecified; Z79.899 Other long term (current) drug therapy; Z86.14 Personal history of Methicillin resistant Staphylococcus aureus infection; I71.40 Abdominal aortic aneurysm, without rupture, unspecified; G89.29 Other chronic pain; M54.9 Dorsalgia, unspecified; J44.9 Chronic obstructive pulmonary disease, unspecified; I25.10 Atherosclerotic heart disease of native coronary artery without angina pectoris; Z95.5 Presence of coronary angioplasty implant and graft; K21.9 Gastro-esophageal reflux disease without esophagitis; I10 Essential (primary) hypertension; I25.2 Old myocardial infarction; Z79.01 Long term (current) use of anticoagulants; Z79.891 Long term (current) use of opiate analgesic; Z79.82 Long term (current) use of aspirin; Z79.51 Long term (current) use of inhaled steroids; D64.81 Anemia due to antineoplastic chemotherapy; Z86.73 Personal history of transient ischemic attack (TIA), and cerebral infarction without residual deficits; R13.10 Dysphagia, unspecified; E87.6 Hypokalemia; D69.59 Other secondary thrombocytopenia; Z87.891 Personal history of nicotine dependence
CPT/HCPCS: 36430; 36591; 71045; 77386; 80048; 80053; 80202; 81001; 83735; 85025; 86850; 86900; 86920; 87040; 87635; 92526; 92610; 94640; 94760; 96360; 96365; 99024; J0692; J2405; J3370; J3475; J3480; J7030; J7050; J7613; P9040

== ENCOUNTER 2022-04-06 11:51 | Outpatient (CLI) | payer MEDICARE, SELFPAY ==
--- NOTE | 2022-04-06 | PETR_ITS ---
PROCEDURE INFORMATION: Exam: PET/CT Skull Base to Mid-thigh Exam date and time: 04/06/2022 12:35 PM Age: 66 years old Clinical indication: Primary cancer: Small cell lung CA middle lobe dx'd 01/05; Follow-up oncological assessment; Condition/disease: Patient was started on combined chemoradiation with cisplatin/etoposide on February 12, 2022, due to progressive, severe radiation-induced esophagitis, patient decided to discontinue radiation therapy on March 19, 2022, by that time, he had already completed 24/33 recommended dose of radiation therapy; Prior surgery; Surgery type: Port, cardiac stent, abd aorta stent. LABS AND CLINICAL REPORTS: Glucose: 104 mg/dl Treatment strategy for malignancy (PET staging): Initial Staging (PI) TECHNIQUE: Imaging protocol: Following at least four-hour fasting and following the injection of F-18-FDG, low dose CT images were obtained. Then, PET images were obtained. Attenuation corrected images were constructed using the CT scan. Fused images of PET and CT were reviewed. The standardized uptake values (SUV) reported below are maximum values within a region of interest, expressed in gm/ml. Exam includes orbital meatal line to mid-thigh. Radiopharmaceutical: 13.1 mCi F-18 FDG (Fluorodeoxyglucose), IV. Time of imaging post radiopharmaceutical administration: 1 hour Injection site: Right hand COMPARISON: CT chest wo con 01/04/2022, CT abdomen pelvis 02/04/2022 FINDINGS: Brain: Visualized brain has normal physiologic uptake. Pharynx: No abnormal uptake. Larynx: No abnormal uptake. Lungs, pleura and trachea: About 3.4 x 1.8 cm patchy consolidation anteriorly in the right upper lobe on image 53 with borderline uptake of 2.7 SUV, 2.2 x 0.6 cm on gated focus of consolidation in the right upper lobe on image 51 with low-grade uptake of 1.3 SUV probably represent acute postradiation pneumonitis. There is subsegmental atelectasis medially in the right upper lobe abutting the mediastinal pleura measuring 2.6 SUV suggestive of benign finding. There are stable granulomas inferiorly in the right lung. No pleural effusion. Heart: Normal physiologic uptake. There is no cardiomegaly. Coronary artery calcification is present. There is no pericardial effusion. Mediastinal space: Conglomerate of treated malignant lymph nodes in the right mediastinum between the superior vena cava and the right mainstem bronchus decreased in anterior-posterior diameter from 5.8 cm to 2.4 cm and in frdk-it-yqbb diameter from 8 cm to 3.5 cm with increased uptake of 6.9 SUV. There is stable sequela of exposure to granulomatous disease with calcified right hilar lymph nodes. Liver: No abnormal uptake. Gallbladder and bile ducts: No abnormal uptake. No calcified gallstones. Pancreas: No abnormal uptake. Spleen: No abnormal uptake. The liver is normal in size with multiple tiny calcified granulomas.. Adrenal glands: No abnormal uptake. No nodules. Kidneys and ureters: Normal physiologic uptake. No hydronephrosis. Small nonobstructive stone in the mid tacos of the left kidney. Stomach and bowel: No abnormal uptake. Intraperitoneal and retroperitoneal spaces: No abnormal uptake. No ascites. Bladder: Normal physiologic uptake. Reproductive: No abnormal uptake. The prostate is mildly enlarged. Vasculature: No abnormal uptake. Stable stent graft within infrarenal abdominal aortic aneurysm. The aneurysmal sac measures 5.1 cm, previously 5.4 cm. Lymph nodes: See above in mediastinal space . No FDG avid lymphadenopathy in the head, neck, abdomen, pelvis, and extremities. Bones/joints: No abnormal uptake in the visualized axial and appendicular skeleton. Soft tissues: No mass. Small focus of uptake in the right hand likely representing injection site. Catheters, tubes and devices: Port catheter placed via the left subclavian vein terminates in the superior vena cava. PET[facility] SUBSEQ [id number] IMPRESSION: There is no baseline PET-CT for comparison. In comparison with CT chest on 01/04/2022 there is significant morphologic response with decrease in size of the mediastinal mass. Current increased uptake within the mediastinal mass measures 6.9 SUV. There is no FDG avid findings outside of the chest to suggest distant metastatic disease. New small opacities in the right upper lobe with low-grade uptake up to 2.7 SUV are suggestive of benign findings (postradiation pneumonitis given course of radiotherapy terminated on 03/19/2022 versus pneumonia). Benign incidental findings (sequela of exposure to granulomatous disease with calcified granulomas in the right hilar lymph nodes, right lung and the spleen, nonobstructive stone in the left kidney, 5.1 cm infrarenal abdominal aortic aneurysm with stent graft in place, enlarged prostate).
== END 2022-04-06 11:52 | disposition home or self-care (01) ==
LOC: RAD 04-08 06:08
PROVIDERS: PCP Family Medicine; Visit Provider Internal Medicine Hematology & Oncology
DX: C34.2 Malignant neoplasm of middle lobe, bronchus or lung (principal)
CPT/HCPCS: 78815; A9552

== ENCOUNTER 2022-04-08 08:08 | Outpatient (RCR) | payer MEDICARE, SELFPAY ==
[2022-03-19 09:43] LABS: Hematocrit 26.9 % (42.0-52.0); Hemoglobin 8.9 g/dL (11.7-16.6); Lymphocytes # 0.1 10^3/uL (0.8-4.8); Lymphocytes % 18.2 %; Mean Corpuscular HGB Conc 33.1 g/dL (30.0-36.0); Mean Corpuscular Hemoglobin 27.7 pg (28.0-34.0); Mean Corpuscular Volume 83.8 fl (80-94); Monocytes # 0.3 10^3/uL (0.2-0.9); Monocytes % 43.9 %; Neutrophils % 34.9 %; Nucleated Red Blood Cells % 0 %; Platelet Count 78 10^3/cmm (130-400); Red Blood Count 3.21 10^6/uL (4.1-5.3); Red Cell Distribution Width 15.6 % (12.1-15.1)
[2022-03-19 09:56] LABS: Alanine Aminotransferase 12 U/L (0-41); Albumin Level 3.7 g/dL (3.5-5.2); Alkaline Phosphatase 77 U/L (40-130); Anion Gap 17.2 (5-19); Aspartate Amino Transferase 19 U/L (0-40); Blood Urea Nitrogen 12 mg/dL (8-23); Calcium 8.6 mg/dL (8.5-10.5); Carbon Dioxide 23 mmol/L (22-29); Chloride 98 mmol/L (98-107); Globulin 2.8 g/dL (1.3-4.6); Glomerular Filtration Rate 84.2 mL/min (90-130); Glucose 105 mg/dL (65-115); Osmolality Calculated 280 mOsm/kg (285-295); Potassium 3.2 mmol/L (3.5-5.1); Sodium 135 mmol/L (136-145); Total Bilirubin 0.8 mg/dL (0.15-1.2); Total Protein 6.5 g/dL (6.6-8.7)
[2022-03-19 10:13] LABS: Neutrophils # 0.23 10^3/uL (1.8-7.7); White Blood Count 0.7 10^3/uL (4.0-10.0)
[2022-03-19 10:14] LABS: Slide Review Slide Review Perform
--- NOTE | 2022-03-19 10:25 | ONCRAD TMN_ITS ---
Radiation Oncology Treatment Management Note Patient Name: Karl Martinez Date of : 1955 Date of Service: 03/19/2022 Attending Physician: Karl Hester M.D. 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 A chest radiograph obtained on December 28, 2021 revealed a 5.7 cm lobulated mass in the right hilum. A thoracic CT scan ordered on January 04, 2022 confirmed a 4.9 cm x 5.9 cm x 10.3 cm right hilar mass that was associated with narrowing of the right mainstem bronchus and right upper lobe bronchus, anterior mediastinal, and bulky subcarinal lymphadenopathy. Endoscopy with endobronchial ultrasonography and biopsy was performed by Vito Chatterjee M.D. on January 08, 2022. Biopsies of a lymph node from station 4R and station 7 were positive for small-cell carcinoma. A PET scan ordered on January 31, 2022 confirmed a right suprahilar mass and right upper-lobe densities. An MRI of the head did not identify intracranial disease. The patient has received 48 Gy of a prescribed 66 Cadena with an intensity modulated radiotherapy plan utilizing a step and shoot treatment technique. He has been prescribed cisplatin (75 mg/m???) and etoposide (100 mg/m???) every three weeks. Upon review of systems, he continues to have esophagitis. He had a 103???F oral temperature this morning. On physical examination, the patient weighed 179 lbs. His temperature was 98.8???F and the blood pressure was 87/59 mmHg. The pulse was 113 bpm and his respiratory rate was 16. Oxygen saturation while breathing room air was 93%. He will be admitted for neutropenic fever (ANC 230). Signed by: Dr. Karl Hester 03/19/2022 10:23:04 AM
[2022-03-19] MEDS: sodium chloride 0.9% 1,000 ML 999 ML IV (10:39)
[2022-03-19 13:51] LABS: Specific Gravity, Urine 1.025 (1.005-1.030); Urine Appearance Hazy (CLEAR); Urine Color Yellow (Yellow); pH Urine 5 (5-7)
[2022-03-19 13:52] LABS: Add Urine Microscopic? YES; Bacteria Urine 1+ /hpf; Bilirubin Urine Neg (Negative); Blood Urine 3+ (Negative); Glucose Urine UA Norm (Normal); Hyaline Casts Urine 0-4 /lpf; Ketones Urine 1+ (Negative); Leukocyte Esterase Urine Negative (Negative); Mucus Urine 1+ /hpf; Nitrate Urine Negative (Negative); Protein Urine 1+ (Negative); RBC Urine 0-4 /hpf (0-2); Squamous Epithelial Cell Urine 0-4 /hpf (0-5); Urobilinogen Urine 1 mg/dL (Negative); WBC Urine 0-4 /hpf (0-5)
[2022-03-25 08:52] LABS: Basophils % 0.7 %; Eosinophils % 0.5 %; Hemoglobin 10.8 g/dL (11.7-16.6); Lymphocytes # 1.3 10^3/uL (0.8-4.8); Mean Corpuscular HGB Conc 32.7 g/dL (30.0-36.0); Mean Corpuscular Hemoglobin 27.6 pg (28.0-34.0); Mean Corpuscular Volume 84.2 fl (80-94); Mean Platelet Volume 11.5 fL (7.4-10.4); Monocytes # 0.7 10^3/uL (0.2-0.9); Monocytes % 16.6 %; Neutrophils # 2.12 10^3/uL (1.8-7.7); Nucleated Red Blood Cells % 0 %; Platelet Count 172 10^3/cmm (130-400); Red Blood Count 3.92 10^6/uL (4.1-5.3); Red Cell Distribution Width 15.8 % (12.1-15.1); White Blood Count 4.3 10^3/uL (4.0-10.0)
[2022-03-25 09:13] LABS: Alanine Aminotransferase 26 U/L (0-41); Albumin Level 3.2 g/dL (3.5-5.2); Alkaline Phosphatase 75 U/L (40-130); Anion Gap 13.1 (5-19); Aspartate Amino Transferase 30 U/L (0-40); Blood Urea Nitrogen 8 mg/dL (8-23); Calcium 8.6 mg/dL (8.5-10.5); Carbon Dioxide 27 mmol/L (22-29); Chloride 97 mmol/L (98-107); Globulin 2.6 g/dL (1.3-4.6); Glomerular Filtration Rate 134.4 mL/min (90-130); Glucose 90 mg/dL (65-115); Osmolality Calculated 276 mOsm/kg (285-295); Potassium 3.1 mmol/L (3.5-5.1); Sodium 134 mmol/L (136-145); Total Bilirubin 0.4 mg/dL (0.15-1.2); Total Protein 5.8 g/dL (6.6-8.7)
[2022-03-25 09:16] LABS: Slide Review Slide Review Perform
[2022-03-25] MEDS: sodium chlor 0.45% +KCl 20 mEq 20 MEQ/1,000 ML BAG 500 MEQ IV (11:10)
[2022-03-25] MEDS: magnesium sulfate premix 2 GM/50 ML PIGGYBACK IV (11:10)
[2022-03-25 13:22] VITALS: BP 109/75; PULSE 90; TEMP 36.2; O2SAT 98
[2022-04-01 08:39] LABS: Basophils # 0.1 10^3/uL (0.0-0.1); Basophils % 0.9 %; Eosinophils % 0.4 %; Hematocrit 34.1 % (42.0-52.0); Hemoglobin 10.8 g/dL (11.7-16.6); Lymphocytes # 2.4 10^3/uL (0.8-4.8); Lymphocytes % 35.1 %; Mean Corpuscular HGB Conc 31.7 g/dL (30.0-36.0); Mean Corpuscular Hemoglobin 27.3 pg (28.0-34.0); Mean Corpuscular Volume 86.1 fl (80-94); Mean Platelet Volume 10.2 fL (7.4-10.4); Monocytes % 14.2 %; Neutrophils # 3.29 10^3/uL (1.8-7.7); Neutrophils % 48.4 %; Nucleated Red Blood Cells % 0 %; Platelet Count 257 10^3/cmm (130-400); Red Blood Count 3.96 10^6/uL (4.1-5.3); Red Cell Distribution Width 16.5 % (12.1-15.1); White Blood Count 6.8 10^3/uL (4.0-10.0)
[2022-04-01 08:56] LABS: Alanine Aminotransferase 14 U/L (0-41); Albumin Level 3.4 g/dL (3.5-5.2); Alkaline Phosphatase 105 U/L (40-130); Aspartate Amino Transferase 19 U/L (0-40); Blood Urea Nitrogen 11 mg/dL (8-23); Calcium 9.8 mg/dL (8.5-10.5); Carbon Dioxide 28 mmol/L (22-29); Globulin 3.1 g/dL (1.3-4.6); Glomerular Filtration Rate 112.5 mL/min (90-130); Glucose 90 mg/dL (65-115); Total Bilirubin 0.6 mg/dL (0.15-1.2); Total Protein 6.5 g/dL (6.6-8.7)
[2022-04-01 09:29] LABS: Chloride 100 mmol/L (98-107); Osmolality Calculated 281 mOsm/kg (285-295); Sodium 136 mmol/L (136-145)
[2022-04-01 09:31] LABS: Anion Gap 12.1 (5-19); Potassium 4.1 mmol/L (3.5-5.1)
== END 2022-04-16 23:59 | disposition home or self-care (01) ==
LOC: ONCMED 08:08
PROVIDERS: Internal Medicine Hematology & Oncology; PCP Family Medicine; Visit Provider Radiology Radiation Oncology
DX: Z51.0 Encounter for antineoplastic radiation therapy (principal); C34.81 Malignant neoplasm of overlapping sites of right bronchus and lung; C77.8 Secondary and unspecified malignant neoplasm of lymph nodes of multiple regions; K20.90 Esophagitis, unspecified without bleeding; Z79.899 Other long term (current) drug therapy; C78.02 Secondary malignant neoplasm of left lung; K52.9 Noninfective gastroenteritis and colitis, unspecified; E87.6 Hypokalemia; D70.1 Agranulocytosis secondary to cancer chemotherapy; Z79.52 Long term (current) use of systemic steroids; T45.1X5A Adverse effect of antineoplastic and immunosuppressive drugs, initial encounter; Z79.2 Long term (current) use of antibiotics; Z86.19 Personal history of other infectious and parasitic diseases; Z87.891 Personal history of nicotine dependence
CPT/HCPCS: 36591; 77386; 80053; 81001; 85025; 96365; 96366; 96368; 99024; 99214; J3475; J3480; J7030

== ENCOUNTER → 2022-04-23 14:00 | Outpatient (BNVA) | payer MEDICARE, SELFPAY | PROVIDERS: PCP Family Medicine; Visit Provider Internal Medicine Cardiovascular Disease | DX: I25.10 Atherosclerotic heart disease of native coronary artery without angina pectoris (principal); I10 Essential (primary) hypertension; E78.5 Hyperlipidemia, unspecified; J41.0 Simple chronic bronchitis; C34.2 Malignant neoplasm of middle lobe, bronchus or lung; Z87.891 Personal history of nicotine dependence; Z86.73 Personal history of transient ischemic attack (TIA), and cerebral infarction without residual deficits | CPT/HCPCS: 99214 ==

== ENCOUNTER 2022-05-13 10:00 | Oncology outpatient (recurring) (ONCR) | payer MEDICARE, SELFPAY ==
[2022-04-26 09:59] LABS: Basophils # 0.1 10^3/uL (0.0-0.1); Basophils % 0.7 %; Eosinophils # 0.3 10^3/uL (0.0-0.8); Eosinophils % 4.5 %; Hematocrit 31.8 % (42.0-52.0); Hemoglobin 10.1 g/dL (11.7-16.6); Lymphocytes # 1.6 10^3/uL (0.8-4.8); Lymphocytes % 22.8 %; Mean Corpuscular HGB Conc 31.8 g/dL (30.0-36.0); Mean Corpuscular Volume 91.4 fl (80-94); Mean Platelet Volume 11.2 fL (7.4-10.4); Monocytes # 0.8 10^3/uL (0.2-0.9); Monocytes % 10.4 %; Neutrophils # 4.41 10^3/uL (1.8-7.7); Neutrophils % 61.3 %; Nucleated Red Blood Cells % 0 %; Platelet Count 176 10^3/cmm (130-400); Red Blood Count 3.48 10^6/uL (4.1-5.3); Red Cell Distribution Width 18.7 % (12.1-15.1); White Blood Count 7.2 10^3/uL (4.0-10.0)
[2022-04-26 10:17] LABS: Alanine Aminotransferase 9 U/L (0-41); Albumin Level 4.1 g/dL (3.5-5.2); Alkaline Phosphatase 123 U/L (40-130); Anion Gap 15.4 (5-19); Aspartate Amino Transferase 19 U/L (0-40); Blood Urea Nitrogen 15 mg/dL (8-23); Calcium 9.5 mg/dL (8.5-10.5); Carbon Dioxide 26 mmol/L (22-29); Chloride 101 mmol/L (98-107); Globulin 2.4 g/dL (1.3-4.6); Glomerular Filtration Rate 96.4 mL/min (90-130); Glucose 130 mg/dL (65-115); Osmolality Calculated 289 mOsm/kg (285-295); Potassium 4.4 mmol/L (3.5-5.1); Sodium 138 mmol/L (136-145); Total Bilirubin 0.5 mg/dL (0.15-1.2); Total Protein 6.5 g/dL (6.6-8.7)
[2022-04-29] MEDS: acetaminophen 325 mg Tablet 650 MG PO (10:17)
[2022-04-29] MEDS: OLANZapine 5 mg TABLET PO (10:18)
[2022-04-29] MEDS: sodium chloride 0.9% 250 ML 100 ML IV (10:47)
[2022-04-29] MEDS: ondansetron 2 mg/ML SDV 2 mL 8 MG IVP (10:48)
[2022-04-29] MEDS: famotidine 20 mg/2 mL INJ IVP (10:49)
[2022-04-29] MEDS: diphenhydrAMINE 50 mg/mL SDV 1mL 25 MG IVP (10:49)
[2022-04-29] MEDS: fosaprepitant 150 MG in sodium chloride 0.9% 150 ML 300 MG IV (10:57)
[2022-04-29] MEDS: FUROsemide 10 mg/mL SDV 2mL 20 MG IVP (14:43)
[2022-04-29] MEDS: potassium chloride 20 MEQ in sodium chloride 0.9% 500 ML 500 MEQ IV (14:46)
[2022-04-29 15:52] VITALS: BP 123/81; PULSE 92; TEMP 36.1; O2SAT 99
[2022-04-30] MEDS: sodium chloride 0.9% 250 ML 100 ML IV (10:13)
[2022-04-30] MEDS: ondansetron 2 mg/ML SDV 2 mL 8 MG IVP (10:13)
[2022-04-30 12:35] VITALS: BP 130/85; PULSE 84; TEMP 36.4; O2SAT 98
[2022-05-01] MEDS: sodium chloride 0.9% 250 ML 100 ML IV (10:38)
[2022-05-01] MEDS: palonosetron 0.25 mg/5 mL SDV IVP (10:38)
[2022-05-01] MEDS: chlorPROMazine 25 mg Tablet 12.5 MG PO (12:21)
[2022-05-01 15:54] VITALS: BP 120/79; PULSE 70; TEMP 36.6; O2SAT 98
[2022-05-10 08:46] LABS: Eosinophils % 3.8 %; Hematocrit 23.7 % (42.0-52.0); Hemoglobin 7.6 g/dL (11.7-16.6); Lymphocytes # 0.9 10^3/uL (0.8-4.8); Lymphocytes % 84.6 %; Mean Corpuscular HGB Conc 32.1 g/dL (30.0-36.0); Mean Corpuscular Hemoglobin 29.3 pg (28.0-34.0); Mean Corpuscular Volume 91.5 fl (80-94); Mean Platelet Volume 11.3 fL (7.4-10.4); Monocytes % 3.8 %; Neutrophils % 6.8 %; Nucleated Red Blood Cells % 0 %; Platelet Count 68 10^3/cmm (130-400); Red Blood Count 2.59 10^6/uL (4.1-5.3); Red Cell Distribution Width 17.4 % (12.1-15.1)
[2022-05-10 09:06] LABS: Alanine Aminotransferase 12 U/L (0-41); Albumin Level 3.8 g/dL (3.5-5.2); Alkaline Phosphatase 124 U/L (40-130); Anion Gap 14.6 (5-19); Aspartate Amino Transferase 15 U/L (0-40); Blood Urea Nitrogen 19 mg/dL (8-23); Calcium 9.3 mg/dL (8.5-10.5); Carbon Dioxide 27 mmol/L (22-29); Chloride 100 mmol/L (98-107); Globulin 2.6 g/dL (1.3-4.6); Glomerular Filtration Rate 96.4 mL/min (90-130); Glucose 96 mg/dL (65-115); Osmolality Calculated 286 mOsm/kg (285-295); Potassium 4.6 mmol/L (3.5-5.1); Sodium 137 mmol/L (136-145); Total Bilirubin 0.3 mg/dL (0.15-1.2); Total Protein 6.4 g/dL (6.6-8.7)
[2022-05-10 09:34] LABS: Slide Review Slide Review Perform
[2022-05-10 09:36] LABS: Neutrophils # 0.07 10^3/uL (1.8-7.7)
[2022-05-10] MEDS: filgrastim-sndz 480 mcg/0.8 mL Syringe SUBCUT (12:00)
[2022-05-13] VITALS (7 sets, daily range): BP systolic 98–109; BP diastolic 68–69; PULSE 86–87; RESP 18; TEMP 35.8–36.6; O2SAT 96–97
[2022-05-13 10:36] LABS: Basophils % 0.6 %; Eosinophils # 0.1 10^3/uL (0.0-0.8); Eosinophils % 3.8 %; Hematocrit 24.1 % (42.0-52.0); Hemoglobin 7.7 g/dL (11.7-16.6); Lymphocytes # 1.1 10^3/uL (0.8-4.8); Lymphocytes % 68.8 %; Mean Corpuscular Volume 93.8 fl (80-94); Mean Platelet Volume 11.1 fL (7.4-10.4); Monocytes # 0.3 10^3/uL (0.2-0.9); Neutrophils % 5.8 %; Nucleated Red Blood Cells % 0 %; Platelet Count 91 10^3/cmm (130-400); Red Blood Count 2.57 10^6/uL (4.1-5.3); Red Cell Distribution Width 18.4 % (12.1-15.1); White Blood Count 1.6 10^3/uL (4.0-10.0)
[2022-05-13 10:54] LABS: Alanine Aminotransferase 9 U/L (0-41); Alkaline Phosphatase 121 U/L (40-130); Anion Gap 15.3 (5-19); Aspartate Amino Transferase 15 U/L (0-40); Blood Urea Nitrogen 18 mg/dL (8-23); Calcium 9.6 mg/dL (8.5-10.5); Carbon Dioxide 25 mmol/L (22-29); Chloride 101 mmol/L (98-107); Globulin 2.4 g/dL (1.3-4.6); Glomerular Filtration Rate 74.5 mL/min (90-130); Glucose 91 mg/dL (65-115); Osmolality Calculated 285 mOsm/kg (285-295); Potassium 4.3 mmol/L (3.5-5.1); Sodium 137 mmol/L (136-145); Total Bilirubin 0.4 mg/dL (0.15-1.2); Total Protein 6.4 g/dL (6.6-8.7)
[2022-05-13 11:29] LABS: Neutrophils # 0.09 10^3/uL (1.8-7.7)
[2022-05-13 11:48] LABS: Slide Review Slide Review Perform
[2022-05-13] MEDS: sodium chloride 0.9% 250 mL Bag IV (12:35)
[2022-05-13] MEDS: diphenhydrAMINE 25 mg Capsule PO (12:35)
[2022-05-13] MEDS: acetaminophen 325 mg Tablet 650 MG PO (12:35)
== END 2022-05-14 23:59 | disposition home or self-care (01) ==
PROVIDERS: PCP Family Medicine; Visit Provider Internal Medicine Hematology & Oncology
DX: C34.2 Malignant neoplasm of middle lobe, bronchus or lung; D64.9 Anemia, unspecified; Z79.899 Other long term (current) drug therapy
CPT/HCPCS: 36415; 36430; 36591; 80053; 85025; 86850; 86900; 86920; 96366; 96367; 96372; 96375; 96413; 96417; 99214; J1100; J1200; J1453; J1940; J2405; J2469; J3475; J3480; J3490; J7030; J7040; J7050; J9060; J9181; P9040; Q0161; Q5101

== ENCOUNTER 2022-05-20 05:23 | Day surgery (SDC) | payer MEDICARE, SELFPAY ==
[2022-05-16 10:38] VITALS: BMI 29.7
[2022-05-20 06:12] VITALS: BP 111/79; PULSE 88; RESP 18; TEMP 36.6; O2SAT 98
[2022-05-20] MEDS: sodium chloride 0.9% 1,000 ML 30 ML IV (06:20)
--- NOTE | 2022-05-20 06:43 | USCV_ITS ---
MartinezKarl Age: 66 Gender: M : 1955 Exam Date: 05/20/2022 07:19 Ordering Phys: Asuncion Benjamin MD ([email or web address]) Technologist: Rahul Shepard [place] [facility] [place] Indication: cva BP: / HR: Rhythm: Sinus Technical Quality: Adequate MEASUREMENTS (Male / Female) Normal Values Medications Patient given IV sedation by anesthesia service, for details please refer to the anesthesia report. Complications None. Proc. Components The patient was brought to the RADHA examination room in a fasting state after obtaining an informed consent. The RADHA probe was passed into the posterior pharynx , mid-esophagus and distal esophagus. RADHA was performed at multiple levels. FINDINGS Left Ventricle Normal size and ejection fraction with no significant wall motion normalities Right Ventricle Appears to normal size with no intracardiac masses Right Atrium No intracavitary lesions were noted Left Atrium No intracavitary masses LA Appendage Normal left atrial appendage. Normal flow velocities in the left atrial appendage. IA Septum Lipomatous atrial septum. No patent foramen ovale. No evidence for an atrial septal defect. Mitral Valve Trace mitral valve regurgitation. Aortic Valve Thickened aortic valve. Tricuspid Valve No morphology abnormalities noted Pulmonic Valve Structurally normal pulmonic valve. Pericardium No pericardial effusion. Aorta Normal aortic annulus size. Minimal plaque in the arch and descending aorta CONCLUSIONS No intracavitary masses No intracardiac shunts based on color-flow Doppler examination/saline contrast injection Trace of mitral regurgitation Possibly normal cardiac chamber sizes. Minimal plaques in the arch and descending aorta. Left atrial appendage has normal contractility with no intracavitary masses. Minimally thickened aortic valve. Dr Asuncion Benjamin MD FAC (Electronically Signed) Final Date: 20 May 2022 17:55 S
--- NOTE | 2022-05-20 07:01 | ANES.PREANE2 ---
Pre-Anesthetic Assessment Height/Weight: Height 1.7 m Weight 86.183 kg Temp Pulse Resp BP Pulse Ox O2 Del Method 97.9 F 88 18 111/79 98 05/20/22 06:12 05/20/22 06:12 05/20/22 06:12 05/20/22 06:12 05/20/22 06:12 05/20/22 06:12 Preop Diagnosis: Lung cancer Operation Date: 05/20/22 07:00 Proposed Procedures p RADHA [id number],I63.512(Not Applicable) - Asuncion Benjamin MD Familial anesthetic complications: none Was Beta Arlene taken within 24 hours: N/A Was Clonidine taken within 24 hours: N/A Last intake: Intake Last Liquid Date 05/19/22 Last Liquid Time 21:00 Last Solid Date 05/19/22 Last Solid Time 18:00 Last Intake: 21:00 Social Tobacco (stop Dec 2021) and No alcohol Exam alert, oriented x 3, clear to auscultation bilaterally and regular rate & rhythm Airway Submandibular: within normal limits Cervical ROM: within normal limits Mallampati: Class II Dentition: false Pulmonary Chronic Obstructive Pulmonary Disease lung CA. Chemo and radiation CV/HEM Deep Vein Thrombosis, Hypertension and Myocardial Infarction (PTCA 2009. No problems since) None reported Hepatic None reported GI Gastroesophageal Reflux Disease Metabolic None reported Musc/skel Osteoarthritis/DJD Neuropsych Cerebrovascular Accident (L side weakness) Anesthetic Plan ASA status: 3 Anesthesia: MAC Risk of > 500 ml blood loss (7ml/kg in children): No Medications/Allergies Home Medications Medication Instructions Recorded Confirmed Last Taken Type albuterol sulfate 90 mcg/actuation 2 puff inhalation Q6H PRN 12/28/21 05/20/22 01/07/22 Rx aerosol inhaler shortness of breath or wheezing #8.5 grams nebulizers #1 ea 01/02/22 05/20/22 01/07/22 Rx aspirin 81 mg tablet,delayed 81 mg PO QAM 01/07/22 05/20/22 05/19/22 History release oxycodone-acetaminophen 5 mg-325 1 - 2 tab PO .Q4-6H PRN pain 30 01/21/22 05/20/22 02/03/22 Rx mg tablet (Percocet) days #60 tabs allopurinol 100 mg tablet 100 mg PO BID #60 tabs 02/01/22 05/20/22 05/19/22 Rx gabapentin 300 mg capsule 300 mg PO BEDTIME 30 days #30 caps 02/21/22 05/20/22 05/19/22 Rx nitroglycerin 0.4 mg sublingual 0.4 mg sublingual Q5M PRN Chest 02/21/22 05/20/22 Unknown Rx tablet (Nitrostat) Pain #25 tabs omeprazole 20 mg capsule,delayed 20 mg PO QAM 90 days #90 caps 02/21/22 05/20/22 05/19/22 Rx release tizanidine 2 mg tablet 2 mg PO Q8H PRN muscle spasticity 02/21/22 05/20/22 Unknown Rx #30 tabs oxycodone 5 mg/5 mL oral solution 5 mg (5 mL) PO Q6H PRN pain 2 02/25/22 05/20/22 Unknown Rx weeks #250 mL lidocaine HCl 2 % mucosal solution 5 ml mucous membrane QID PRN pain 02/26/22 05/20/22 Unknown Rx (Lidocaine Viscous) 1 week #80 mL diphenoxylate-atropine 2.5 1 tab PO Q6H PRN diarrhea #30 tabs 03/25/22 05/20/22 Unknown Rx mg-0.025 mg tablet (Lomotil) rivaroxaban 20 mg tablet (Xarelto) 20 mg PO DAILY #30 tabs 03/25/22 05/20/22 05/19/22 Rx nystatin 100,000 unit/mL oral 5 ml PO TID PRN sore mouth 04/26/22 05/20/22 Unknown History suspension chlorpromazine 10 mg tablet 10 mg PO TID PRN hiccups #15 tabs 05/01/22 05/20/22 Unknown Rx lidocaine-prilocaine 2.5 %-2.5 % 1 applic topical .COMPLEX #30 grams 05/13/22 05/20/22 05/17/22 Rx topical cream prochlorperazine maleate 10 mg 10 mg PO Q4H PRN Nausea 05/20/22 05/20/22 Unknown History tablet (Compazine) Allergies Allergy/AdvReac Type Severity Reaction Status Date / Time Jniokar-NCJ-CaC Reductase Allergy Unknown Verified 05/20/22 06:07 Inhibitor Current Medications Generic Name Dose Route Start Last Admin Trade Name Freq PRN Reason Stop Dose Admin Sodium Chloride 1,000 mls @ 30 mls/hr 05/20/22 06:15 05/20/22 06:20 Sodium Chloride 0.9% IV 05/21/22 06:14 30 mls/hr .Q24H DESTINY Administration PFSH Anesthesia Medical History Abdominal aortic aneurysm Carpal tunnel syndrome on both sides Chronic back pain Congenital umbilical hernia COPD (chronic obstructive pulmonary disease) Coronary artery disease GERD (gastroesophageal reflux disease) Hypertension Neutropenia Past heart attack Port-A-Cath in place Small cell lung cancer, right middle lobe Surgical History History of bilateral carpal tunnel release History of endovascular stent graft for abdominal aortic aneurysm (AAA) History of heart artery stent History of tonsillectomy and adenoidectomy Hx of umbilical hernia repair S/P AAA repair using bifurcation graft S/P rotator cuff repair Family History Family/Other Cancer Father CAD (coronary artery disease) Stroke Brother CAD (coronary artery disease) Brother CAD (coronary artery disease) Diabetes Sister CAD (coronary artery disease) Cancer Chronic kidney disease (CKD) Diabetes Sister Cancer Diabetes Mother Stroke Other Hyperlipidemia Hypertension Psychiatric illness Denies family history of Clotting disorder Dementia Suicide Anesthesia complication Bleeding disorder Lung disease Social History Smoking and tobacco status: former smoker (smoked x 50+ years) Alcohol intake: never Data Anesthesia Cardiac Studies: Echocardiogram 03/01/22 Cardiac Event Monitor 02/11/22
--- NOTE | 2022-05-20 07:05 | W.PM.OPSUD ---
Surgery/Procedure H&P Update DATE OF PROCEDURE: May 20, 2022 DATE H&P PERFORMED: 04/23/22 H&P UPDATE INFORMATION: I have reviewed H&P completed within last 30 days, I have examined patient prior to procedure and No changes to prior documentation PREOP DIAGNOSIS: CVA PRIMARY INDICATION FOR PROCEDURE: looking for any intra cardiac shunt PLANNED PROCEDURE: Operation Date: 05/20/22 07:00 Proposed Procedures p RADHA 47058,I63.512(Not Applicable) - Asuncion Benjamin MD
[2022-05-20 07:43] VITALS: BP 94/66; PULSE 82; RESP 16; TEMP 36.3; O2SAT 97
[2022-05-20 07:54] VITALS: BP 111/68; PULSE 78; RESP 18; O2SAT 90
--- NOTE | 2022-05-20 13:00 | ANE.PACU2 ---
Inpatient post-anesthesia follow up: Airway intact: Yes Vital signs: Temperature 97.3 F Pulse Rate 78 Respiratory Rate 18 Blood Pressure 111/68 Pulse Oximetry 90 Oxygen Delivery Me thod Room Air Oxygen Flow Rate Fraction of Inspir ed Oxygen Hydration adequate: Yes Nausea and vomiting: No Pain level: 1 Mental status: Baseline
== END 2022-05-20 08:17 | disposition home or self-care (01) ==
PROVIDERS: PCP Family Medicine; Visit Provider Internal Medicine Cardiovascular Disease
PROC: (CPT 93312; principal; 2022-05-20 07:00)
DX: I48.91 Unspecified atrial fibrillation (principal); I10 Essential (primary) hypertension; E78.5 Hyperlipidemia, unspecified; I25.10 Atherosclerotic heart disease of native coronary artery without angina pectoris; I25.2 Old myocardial infarction; J44.9 Chronic obstructive pulmonary disease, unspecified; C34.2 Malignant neoplasm of middle lobe, bronchus or lung; K21.9 Gastro-esophageal reflux disease without esophagitis; I69.354 Hemiplegia and hemiparesis following cerebral infarction affecting left non-dominant side; Z79.82 Long term (current) use of aspirin; Z86.718 Personal history of other venous thrombosis and embolism; Z87.891 Personal history of nicotine dependence; Z95.9 Presence of cardiac and vascular implant and graft, unspecified; Z82.49 Family history of ischemic heart disease and other diseases of the circulatory system
CPT/HCPCS: 93312; 93320; 93325; J2704; J7030

== ENCOUNTER → 2022-05-23 10:14 | Outpatient (BNVA) | payer MEDICARE, SELFPAY | PROVIDERS: PCP Family Medicine; Visit Provider Specialist | DX: N28.0 Ischemia and infarction of kidney (principal); C34.2 Malignant neoplasm of middle lobe, bronchus or lung; Z86.73 Personal history of transient ischemic attack (TIA), and cerebral infarction without residual deficits; Z87.891 Personal history of nicotine dependence; Z92.21 Personal history of antineoplastic chemotherapy | CPT/HCPCS: 99205 ==

== ENCOUNTER 2022-06-07 08:24 | Oncology outpatient (recurring) (ONCR) | payer MEDICARE, SELFPAY ==
[2022-05-17 09:16] LABS: Basophils % 0.3 %; Eosinophils % 1.2 %; Hematocrit 27.8 % (42.0-52.0); Hemoglobin 8.9 g/dL (11.7-16.6); Lymphocytes # 1.1 10^3/uL (0.8-4.8); Lymphocytes % 32.4 %; Mean Corpuscular Volume 93.6 fl (80-94); Mean Platelet Volume 10.2 fL (7.4-10.4); Monocytes # 0.7 10^3/uL (0.2-0.9); Monocytes % 21.6 %; Neutrophils # 1.41 10^3/uL (1.8-7.7); Neutrophils % 42.4 %; Nucleated Red Blood Cells % 0 %; Platelet Count 130 10^3/cmm (130-400); Red Blood Count 2.97 10^6/uL (4.1-5.3); Red Cell Distribution Width 18.8 % (12.1-15.1); White Blood Count 3.3 10^3/uL (4.0-10.0)
[2022-05-21] VITALS (11 sets, daily range): BP systolic 116–122; BP diastolic 70–82; PULSE 77–87; RESP 18; TEMP 36.3–37.1; O2SAT 95–99
[2022-05-21 08:32] LABS: Basophils % 0.5 %; Eosinophils % 0.7 %; Hematocrit 24.7 % (42.0-52.0); Hemoglobin 7.8 g/dL (11.7-16.6); Lymphocytes # 1.3 10^3/uL (0.8-4.8); Lymphocytes % 23.3 %; Mean Corpuscular HGB Conc 31.6 g/dL (30.0-36.0); Mean Corpuscular Hemoglobin 30.2 pg (28.0-34.0); Mean Corpuscular Volume 95.7 fl (80-94); Monocytes # 0.7 10^3/uL (0.2-0.9); Monocytes % 11.8 %; Nucleated Red Blood Cells % 0 %; Platelet Count 202 10^3/cmm (130-400); Red Blood Count 2.58 10^6/uL (4.1-5.3); Red Cell Distribution Width 18.5 % (12.1-15.1); White Blood Count 5.6 10^3/uL (4.0-10.0)
[2022-05-21 08:51] LABS: Alanine Aminotransferase 7 U/L (0-41); Albumin Level 3.8 g/dL (3.5-5.2); Alkaline Phosphatase 120 U/L (40-130); Anion Gap 11.3 (5-19); Aspartate Amino Transferase 14 U/L (0-40); Blood Urea Nitrogen 27 mg/dL (8-23); Calcium 9.3 mg/dL (8.5-10.5); Carbon Dioxide 27 mmol/L (22-29); Chloride 100 mmol/L (98-107); Globulin 2.5 g/dL (1.3-4.6); Glomerular Filtration Rate 112.5 mL/min (90-130); Glucose 92 mg/dL (65-115); Osmolality Calculated 283 mOsm/kg (285-295); Potassium 4.3 mmol/L (3.5-5.1); Sodium 134 mmol/L (136-145); Total Bilirubin 0.2 mg/dL (0.15-1.2); Total Protein 6.3 g/dL (6.6-8.7)
[2022-05-21] MEDS: acetaminophen 325 mg Tablet 650 MG PO (12:14)
[2022-05-21] MEDS: diphenhydrAMINE 25 mg Capsule PO (12:14)
[2022-05-21] MEDS: sodium chloride 0.9% 250 mL Bag IV (12:15)
[2022-05-21] MEDS: FUROsemide 10 mg/mL SDV 2mL 20 MG IVP (15:22)
[2022-05-28 08:46] LABS: Basophils # 0.1 10^3/uL (0.0-0.1); Basophils % 1.2 %; Eosinophils % 0.6 %; Hemoglobin 10.9 g/dL (11.7-16.6); Lymphocytes # 1.2 10^3/uL (0.8-4.8); Lymphocytes % 23.6 %; Mean Corpuscular HGB Conc 32.1 g/dL (30.0-36.0); Mean Corpuscular Hemoglobin 30.4 pg (28.0-34.0); Mean Corpuscular Volume 94.7 fl (80-94); Mean Platelet Volume 10.1 fL (7.4-10.4); Monocytes # 0.8 10^3/uL (0.2-0.9); Neutrophils # 2.91 10^3/uL (1.8-7.7); Neutrophils % 58.4 %; Nucleated Red Blood Cells % 0 %; Platelet Count 298 10^3/cmm (130-400); Red Blood Count 3.59 10^6/uL (4.1-5.3); Red Cell Distribution Width 17.2 % (12.1-15.1)
[2022-05-28 09:05] LABS: Alanine Aminotransferase 8 U/L (0-41); Alkaline Phosphatase 118 U/L (40-130); Anion Gap 15.5 (5-19); Aspartate Amino Transferase 20 U/L (0-40); Blood Urea Nitrogen 26 mg/dL (8-23); Calcium 9.6 mg/dL (8.5-10.5); Carbon Dioxide 26 mmol/L (22-29); Chloride 102 mmol/L (98-107); Globulin 2.8 g/dL (1.3-4.6); Glomerular Filtration Rate 84.2 mL/min (90-130); Glucose 103 mg/dL (65-115); Osmolality Calculated 293 mOsm/kg (285-295); Potassium 4.5 mmol/L (3.5-5.1); Sodium 139 mmol/L (136-145); Total Bilirubin 0.4 mg/dL (0.15-1.2); Total Protein 6.8 g/dL (6.6-8.7)
[2022-05-28] MEDS: ondansetron 2 mg/ML SDV 2 mL 8 MG IVP (12:39)
[2022-05-28] MEDS: famotidine 20 mg/2 mL INJ IVP (12:40)
[2022-05-28] MEDS: sodium chloride 0.9% 250 ML 100 ML IV (12:40)
[2022-05-28] MEDS: diphenhydrAMINE 50 mg/mL SDV 1mL 25 MG IVP (12:40)
[2022-05-28] MEDS: acetaminophen 325 mg Tablet 650 MG PO (12:48)
[2022-05-28] MEDS: OLANZapine 5 mg TABLET PO (12:48)
[2022-05-28] MEDS: fosaprepitant 150 MG in sodium chloride 0.9% 150 ML 300 MG IV (13:14)
[2022-05-28] MEDS: FUROsemide 10 mg/mL SDV 2mL 20 MG IVP (16:10)
[2022-05-28] MEDS: potassium chloride 20 MEQ in sodium chloride 0.9% 500 ML 500 MEQ IV (16:17)
[2022-05-28 16:51] VITALS: BP 125/82; PULSE 79; TEMP 36.4; O2SAT 98
[2022-05-29 09:57] VITALS: BP 133/89; PULSE 88; RESP 16; TEMP 36.2; O2SAT 95
[2022-05-29] MEDS: ondansetron 2 mg/ML SDV 2 mL 8 MG IVP (10:00)
[2022-05-29] MEDS: sodium chloride 0.9% 250 ML 75 ML IV (10:00)
[2022-05-29 12:22] VITALS: BP 136/89; PULSE 78; RESP 16; TEMP 37; O2SAT 98
[2022-05-30] MEDS: sodium chloride 0.9% 250 ML 100 ML IV (09:45)
[2022-05-30] MEDS: palonosetron 0.25 mg/5 mL SDV IVP (09:46)
[2022-05-30] MEDS: pegfilgrastim 6 mg/0.6 mL Kit (onpro) SUBCUT (11:47)
[2022-05-30 12:00] VITALS: BP 138/85; PULSE 71; TEMP 36.8; O2SAT 94
[2022-06-07 08:40] VITALS: BP 90/66; PULSE 80; TEMP 36.4; O2SAT 96
[2022-06-07 08:52] LABS: Basophils % 1.7 %; Eosinophils % 2.5 %; Hematocrit 27.9 % (42.0-52.0); Hemoglobin 9.1 g/dL (11.7-16.6); Lymphocytes # 0.6 10^3/uL (0.8-4.8); Lymphocytes % 46.3 %; Mean Corpuscular HGB Conc 32.6 g/dL (30.0-36.0); Mean Corpuscular Hemoglobin 30.1 pg (28.0-34.0); Mean Corpuscular Volume 92.4 fl (80-94); Mean Platelet Volume 12.4 fL (7.4-10.4); Monocytes # 0.2 10^3/uL (0.2-0.9); Monocytes % 14.9 %; Neutrophils % 33.8 %; Nucleated Red Blood Cells % 0 %; Platelet Count 65 10^3/cmm (130-400); Red Blood Count 3.02 10^6/uL (4.1-5.3); Red Cell Distribution Width 15.9 % (12.1-15.1); White Blood Count 1.2 10^3/uL (4.0-10.0)
[2022-06-07 09:10] LABS: Neutrophils # 0.41 10^3/uL (1.8-7.7); Slide Review Slide Review Perform
[2022-06-07 09:11] LABS: Alanine Aminotransferase 23 U/L (0-41); Albumin Level 3.5 g/dL (3.5-5.2); Alkaline Phosphatase 129 U/L (40-130); Anion Gap 14.9 (5-19); Aspartate Amino Transferase 25 U/L (0-40); Blood Urea Nitrogen 30 mg/dL (8-23); Calcium 8.6 mg/dL (8.5-10.5); Carbon Dioxide 24 mmol/L (22-29); Chloride 98 mmol/L (98-107); Globulin 2.8 g/dL (1.3-4.6); Glomerular Filtration Rate 66.8 mL/min (90-130); Glucose 136 mg/dL (65-115); Osmolality Calculated 284 mOsm/kg (285-295); Potassium 3.9 mmol/L (3.5-5.1); Sodium 133 mmol/L (136-145); Total Bilirubin 0.2 mg/dL (0.15-1.2); Total Protein 6.3 g/dL (6.6-8.7)
[2022-06-07] MEDS: sodium chloride 0.9% 1,000 ML 999 ML IV (10:21)
[2022-06-07] MEDS: levofloxacin-dextrose 5 % 500 MG/100 ML PREMIX 100 MG IV (10:21)
[2022-06-07 11:43] VITALS: BP 105/72; PULSE 69; TEMP 36.1; O2SAT 93
== END 2022-06-14 23:59 | disposition home or self-care (01) ==
PROVIDERS: PCP Family Medicine; Visit Provider Internal Medicine Hematology & Oncology
DX: C34.2 Malignant neoplasm of middle lobe, bronchus or lung; Z51.11 Encounter for antineoplastic chemotherapy; D70.1 Agranulocytosis secondary to cancer chemotherapy; T45.1X5A Adverse effect of antineoplastic and immunosuppressive drugs, initial encounter; Z79.2 Long term (current) use of antibiotics; Z79.899 Other long term (current) drug therapy; Z87.891 Personal history of nicotine dependence
CPT/HCPCS: 36430; 36591; 80053; 85025; 86850; 86900; 86920; 96361; 96365; 96367; 96372; 96375; 96413; 96417; 99214; J1100; J1200; J1453; J1940; J1956; J2405; J2469; J2506; J3475; J3480; J3490; J7030; J7040; J7050; J9060; J9181; P9016

== ENCOUNTER 2022-06-15 05:42 | Outpatient (CLI) | payer MEDICARE, SELFPAY ==
--- NOTE | 2022-06-15 09:00 | PETR_ITS ---
PROCEDURE INFORMATION: Exam: PET/CT Skull Base to Mid-thigh Exam date and time: 06/15/2022 8:55 AM Age: 66 years old Clinical indication: Condition or disease; Primary cancer: C34.2 malignant neoplasm of middle lobe, bronchus or lung; Follow-up oncological assessment; Additional info: Follow up, to be completed mid-june LABS AND CLINICAL REPORTS: Glucose: 103 mg/dl Treatment strategy for malignancy (PET staging): Restaging (PS) TECHNIQUE: Imaging protocol: Following at least four-hour fasting and following the injection of F-18-FDG, low dose CT images were obtained. Then, PET images were obtained. Attenuation corrected images were constructed using the CT scan. Fused images of PET and CT were reviewed. The standardized uptake values (SUV) reported below are maximum values within a region of interest, expressed in gm/ml. Exam includes orbital meatal line to mid-thigh. Radiopharmaceutical: 15.4 mCi F-18 FDG (Fluorodeoxyglucose), IV. Time of imaging post radiopharmaceutical administration: 1 hour Injection site: Right hand COMPARISON: PT PET [facility] INITIAL [id number] 04/06/2022 12:35 PM FINDINGS: Tubes, catheters and devices: Left Port-A-Cath terminates near the junction of the brachiocephalic vein and SVC. Brain: Visualized brain has normal physiologic uptake. Pharynx: No abnormal uptake. Larynx: No abnormal uptake. Lungs, pleura and trachea: Mildly decreased size of a wedge-shaped opacity in the right upper lobe with low level FDG uptake (SUV max 2.2), again favored to reflect post treatment change. Calcified granulomas in the right lung. Similar 6 mm left upper lobe pulmonary nodule without increased FDG uptake. Heart: Normal physiologic uptake. Mediastinal space: Mildly decreased size and FDG uptake of the right paratracheal mass in the mediastinum, now with SUV max 6.4, previously 6.9. This now measures approximately 2.5 x 2.4 cm. Liver: No abnormal uptake. Gallbladder and bile ducts: No abnormal uptake. Pancreas: No abnormal uptake. Spleen: Calcified splenic granulomas. Adrenal glands: No abnormal uptake. Kidneys and ureters: Tiny nonobstructing bilateral renal calculi. Stomach and bowel: Small duodenal diverticulum. No abnormal uptake in the small or large bowel. No bowel obstruction. Colonic diverticulosis without evidence of diverticulitis. Reproductive: Prostatomegaly. Small left hydrocele. Vasculature: Status post EVAR of an abdominal aortic aneurysm. The overall aneurysm sac measures similarly at 5.2 cm. Lymph nodes: Redemonstrated calcified mediastinal and hilar lymph nodes. Bones/joints: No abnormal uptake in the visualized axial and appendicular skeleton. Soft tissues: Small focus of increased FDG uptake with some associated skin thickening overlying the right lateral gluteal region with SUV max 3.1, which should be amenable to direct inspection. [id number] IMPRESSION: 1. Mildly decreased size and FDG uptake of the right paratracheal mass in the mediastinum as further described above. 2. Mildly decreased size of the right upper lobe wedge-shaped opacity with low level FDG uptake, again favored to reflect post treatment change. 3. Small focus of increased FDG uptake with some associated skin thickening overlying the right lateral gluteal region with SUV max 3.1, which should be amenable to direct inspection.
== END 2022-06-15 05:43 | disposition home or self-care (01) ==
PROVIDERS: PCP Family Medicine; Visit Provider Internal Medicine Hematology & Oncology
DX: C34.2 Malignant neoplasm of middle lobe, bronchus or lung (principal)
CPT/HCPCS: 78815; A9552

== ENCOUNTER 2022-06-28 08:00 | Oncology outpatient (recurring) (ONCR) | payer MEDICARE, SELFPAY ==
[2022-06-17 10:02] VITALS: BMI 30.5
[2022-06-17 10:14] VITALS: BP 119/80; PULSE 75; RESP 18; TEMP 36.5; O2SAT 99
[2022-06-17 10:21] LABS: Basophils % 0.4 %; Eosinophils % 0.5 %; Hematocrit 29.8 % (42.0-52.0); Hemoglobin 9.5 g/dL (11.7-16.6); Lymphocytes # 1.3 10^3/uL (0.8-4.8); Lymphocytes % 17.1 %; Mean Corpuscular HGB Conc 31.9 g/dL (30.0-36.0); Mean Corpuscular Hemoglobin 30.4 pg (28.0-34.0); Mean Corpuscular Volume 95.5 fl (80-94); Mean Platelet Volume 10.5 fL (7.4-10.4); Monocytes # 0.9 10^3/uL (0.2-0.9); Monocytes % 12.5 %; Neutrophils # 5.07 10^3/uL (1.8-7.7); Neutrophils % 68.3 %; Nucleated Red Blood Cells % 0 %; Platelet Count 282 10^3/cmm (130-400); Red Blood Count 3.12 10^6/uL (4.1-5.3); Red Cell Distribution Width 17.3 % (12.1-15.1); White Blood Count 7.4 10^3/uL (4.0-10.0)
[2022-06-17 10:49] LABS: Alanine Aminotransferase 9 U/L (0-41); Alkaline Phosphatase 118 U/L (40-130); Anion Gap 12.6 (5-19); Aspartate Amino Transferase 19 U/L (0-40); Blood Urea Nitrogen 18 mg/dL (8-23); Calcium 9.3 mg/dL (8.5-10.5); Carbon Dioxide 26 mmol/L (22-29); Chloride 98 mmol/L (98-107); Globulin 2.6 g/dL (1.3-4.6); Glomerular Filtration Rate 84.2 mL/min (90-130); Glucose 88 mg/dL (65-115); Osmolality Calculated 275 mOsm/kg (285-295); Potassium 4.6 mmol/L (3.5-5.1); Sodium 132 mmol/L (136-145); Total Bilirubin 0.2 mg/dL (0.15-1.2); Total Protein 6.6 g/dL (6.6-8.7)
[2022-06-17 11:43] LABS: Ferritin 418 ng/mL (30-400); Iron 49 ug/dL (59-158); Percent Saturation 18.7 % (20-50); Total Iron Binding Capacity 262 mcg/dl; Unsaturated Iron Binding 213 ug/dL (112-347)
[2022-06-17 11:47] VITALS: BP 119/80; PULSE 63; RESP 16; TEMP 36.5; O2SAT 99
[2022-06-28 08:10] VITALS: BP 120/83; PULSE 79; TEMP 36.3; O2SAT 99
[2022-06-28 08:36] LABS: Basophils % 0.7 %; Eosinophils # 0.1 10^3/uL (0.0-0.8); Eosinophils % 1.2 %; Hematocrit 31.5 % (42.0-52.0); Hemoglobin 10.1 g/dL (11.7-16.6); Lymphocytes # 1.2 10^3/uL (0.8-4.8); Mean Corpuscular HGB Conc 32.1 g/dL (30.0-36.0); Mean Corpuscular Hemoglobin 30.3 pg (28.0-34.0); Mean Corpuscular Volume 94.6 fl (80-94); Mean Platelet Volume 10.4 fL (7.4-10.4); Monocytes % 17.1 %; Neutrophils # 3.52 10^3/uL (1.8-7.7); Neutrophils % 59.5 %; Nucleated Red Blood Cells % 0 %; Platelet Count 204 10^3/cmm (130-400); Red Blood Count 3.33 10^6/uL (4.1-5.3); Red Cell Distribution Width 17.2 % (12.1-15.1); White Blood Count 5.9 10^3/uL (4.0-10.0)
[2022-06-28 09:02] LABS: Alanine Aminotransferase 7 U/L (0-41); Albumin Level 4.1 g/dL (3.5-5.2); Alkaline Phosphatase 116 U/L (40-130); Anion Gap 13.4 (5-19); Aspartate Amino Transferase 16 U/L (0-40); Blood Urea Nitrogen 15 mg/dL (8-23); Calcium 9.2 mg/dL (8.5-10.5); Carbon Dioxide 28 mmol/L (22-29); Chloride 102 mmol/L (98-107); Globulin 2.4 g/dL (1.3-4.6); Glomerular Filtration Rate 74.5 mL/min (90-130); Glucose 83 mg/dL (65-115); Osmolality Calculated 288 mOsm/kg (285-295); Potassium 4.4 mmol/L (3.5-5.1); Sodium 139 mmol/L (136-145); Total Bilirubin 0.3 mg/dL (0.15-1.2); Total Protein 6.5 g/dL (6.6-8.7)
== END 2022-07-14 23:59 | disposition home or self-care (01) ==
PROVIDERS: PCP Family Medicine; Visit Provider Internal Medicine Hematology & Oncology
DX: Z08 Encounter for follow-up examination after completed treatment for malignant neoplasm (principal); Z85.118 Personal history of other malignant neoplasm of bronchus and lung; D50.9 Iron deficiency anemia, unspecified; Z92.21 Personal history of antineoplastic chemotherapy; Z92.3 Personal history of irradiation; Z87.891 Personal history of nicotine dependence; Z79.899 Other long term (current) drug therapy
CPT/HCPCS: 36591; 80053; 82728; 83540; 83550; 85025; 99214

== ENCOUNTER 2022-08-09 09:09 | Oncology outpatient (recurring) (ONCR) | payer MEDICARE, SELFPAY ==
[2022-08-09 09:40] VITALS: BP 130/87; PULSE 77; RESP 18; TEMP 36.5; O2SAT 98
[2022-08-09 09:51] LABS: Basophils # 0.1 10^3/uL (0.0-0.1); Eosinophils # 0.3 10^3/uL (0.0-0.8); Eosinophils % 4.1 %; Hematocrit 35.6 % (42.0-52.0); Hemoglobin 11.3 g/dL (11.7-16.6); Lymphocytes # 1.4 10^3/uL (0.8-4.8); Lymphocytes % 23.3 %; Mean Corpuscular HGB Conc 31.7 g/dL (30.0-36.0); Mean Corpuscular Hemoglobin 30.5 pg (28.0-34.0); Mean Platelet Volume 10.6 fL (7.4-10.4); Monocytes # 0.8 10^3/uL (0.2-0.9); Neutrophils # 3.53 10^3/uL (1.8-7.7); Neutrophils % 58.3 %; Nucleated Red Blood Cells % 0 %; Platelet Count 198 10^3/cmm (130-400); Red Blood Count 3.71 10^6/uL (4.1-5.3); Red Cell Distribution Width 15.8 % (12.1-15.1); White Blood Count 6.1 10^3/uL (4.0-10.0)
[2022-08-09 10:05] LABS: Alanine Aminotransferase 10 U/L (0-41); Albumin Level 4.5 g/dL (3.5-5.2); Alkaline Phosphatase 111 U/L (40-130); Anion Gap 17.4 (5-19); Aspartate Amino Transferase 19 U/L (0-40); Blood Urea Nitrogen 28 mg/dL (8-23); Calcium 9.5 mg/dL (8.5-10.5); Carbon Dioxide 25 mmol/L (22-29); Chloride 101 mmol/L (98-107); Globulin 2.6 g/dL (1.3-4.6); Glomerular Filtration Rate 74.5 mL/min (90-130); Glucose 81 mg/dL (65-115); Osmolality Calculated 293 mOsm/kg (285-295); Potassium 4.4 mmol/L (3.5-5.1); Sodium 139 mmol/L (136-145); Total Bilirubin 0.5 mg/dL (0.15-1.2); Total Protein 7.1 g/dL (6.6-8.7)
== END 2022-08-14 23:59 | disposition home or self-care (01) ==
PROVIDERS: PCP Family Medicine; Visit Provider Internal Medicine Hematology & Oncology
DX: C34.2 Malignant neoplasm of middle lobe, bronchus or lung (principal); D64.9 Anemia, unspecified; Z87.891 Personal history of nicotine dependence; Z95.828 Presence of other vascular implants and grafts
CPT/HCPCS: 36591; 80053; 85025; 96374; 99213; J1642

== ENCOUNTER 2022-09-04 13:01 | Oncology outpatient (recurring) (ONCR) | payer MEDICARE, SELFPAY ==
[2022-09-04 13:15] VITALS: BP 107/74; PULSE 92; RESP 18; TEMP 37.1; O2SAT 95
== END 2022-09-13 23:59 | disposition home or self-care (01) ==
PROVIDERS: PCP Family Medicine; Visit Provider Internal Medicine Hematology & Oncology
DX: C34.2 Malignant neoplasm of middle lobe, bronchus or lung (principal); D64.9 Anemia, unspecified; Z87.891 Personal history of nicotine dependence; Z51.11 Encounter for antineoplastic chemotherapy
CPT/HCPCS: 96523; J1642

== ENCOUNTER 2022-09-11 07:53 | Outpatient (CLI) | payer MEDICARE, SELFPAY ==
--- NOTE | 2022-09-11 08:00 | MR_ITS ---
WS: [id number] MRI HEAD WITH CONTRAST TECHNIQUE: Sagittal T1, T2 axial, T2 axial FLAIR, axial susceptibility weighted imaging, axial diffus ion weighted images, and coronal T2 images were obtained. Pre and post-T1 axial and post T1 coronal i mages. ADC and FSPGR images. CLINICAL INFORMATION: SURVEILLANCE COMPARISON: MRI January 23, 2022 FINDINGS: No evidence of restricted diffusion to suggest acute ischemia. Ventricular system and basal cisterns are patent. Normal posterior fossa. Normal vascular flow voids at the skull base. No extra- axial fluid collections. No evidence of mass or mass effect. Paranasal sinuses and mastoid air cells well aerated. Moderate small vessel changes progressed compared to previous. Moderate parenchymal vol ume loss. Normal posterior nasopharynx and parapharyngeal fat. No hemosiderin on susceptibly weighted images. Normal optic chiasm and pituitary infundibulum. No abnormal gadolinium enhancement. No evidence of enhancing intracranial metastatic disease. Enhancing small polypoid lesion adjacent to the RIGHT middle nasal turbinate measuring 12 mm unchange d. Bilateral marlo bullosa. MR/MR head wo/w con [id number] IMPRESSION: 1. No evidence of enhancing intracranial metastatic disease. 2. Moderate small vessel changes with moderate parenchymal volume loss. Small vessel changes have progressed compared to previous. 3. No restricted diffusion to suggest acute ischemia. 4. Stable small enhancing polypoid lesion adjacent to the RIGHT middle nasal tu rbinate measuring 12 mm. This can be followed up with endoscopy. Bilateral conc amos bullosa.
[2022-09-11] MEDS: gadobenate dimeglumine 20 mL vial IV (08:49)
== END 2022-09-11 07:54 | disposition home or self-care (01) ==
PROVIDERS: PCP Family Medicine; Visit Provider Nurse Practitioner Family
DX: C34.90 Malignant neoplasm of unspecified part of unspecified bronchus or lung (principal); I67.89 Other cerebrovascular disease; J33.9 Nasal polyp, unspecified
CPT/HCPCS: 70553; A9577

== ENCOUNTER 2022-10-04 08:31 | Oncology outpatient (recurring) (ONCR) | payer MEDICARE, SELFPAY ==
[2022-10-04 08:42] VITALS: BP 121/79; PULSE 83; RESP 18; TEMP 36.4; O2SAT 97
[2022-10-04 08:55] LABS: Basophils # 0.1 10^3/uL (0.0-0.1); Basophils % 0.8 %; Eosinophils # 0.3 10^3/uL (0.0-0.8); Hematocrit 36.7 % (42.0-52.0); Lymphocytes # 1.5 10^3/uL (0.8-4.8); Lymphocytes % 19.4 %; Mean Corpuscular HGB Conc 32.7 g/dL (30.0-36.0); Mean Corpuscular Hemoglobin 30.3 pg (28.0-34.0); Mean Corpuscular Volume 92.7 fl (80-94); Mean Platelet Volume 10.4 fL (7.4-10.4); Monocytes # 0.9 10^3/uL (0.2-0.9); Monocytes % 12.1 %; Neutrophils # 4.88 10^3/uL (1.8-7.7); Neutrophils % 63.4 %; Nucleated Red Blood Cells % 0 %; Platelet Count 235 10^3/cmm (130-400); Red Blood Count 3.96 10^6/uL (4.1-5.3); Red Cell Distribution Width 14.2 % (12.1-15.1); White Blood Count 7.7 10^3/uL (4.0-10.0)
[2022-10-04 09:22] LABS: Alanine Aminotransferase 10 U/L (0-41); Albumin Level 4.2 g/dL (3.5-5.2); Alkaline Phosphatase 124 U/L (40-130); Anion Gap 15.8 (5-19); Aspartate Amino Transferase 18 U/L (0-40); Blood Urea Nitrogen 20 mg/dL (8-23); Calcium 9.7 mg/dL (8.5-10.5); Carbon Dioxide 25 mmol/L (22-29); Chloride 104 mmol/L (98-107); Ferritin 161 ng/mL (30-400); Globulin 2.7 g/dL (1.3-4.6); Glomerular Filtration Rate 66.6 mL/min (90-130); Glucose 93 mg/dL (65-115); Iron 51 ug/dL (59-158); Osmolality Calculated 292 mOsm/kg (285-295); Percent Saturation 19.9 % (20-50); Potassium 4.8 mmol/L (3.5-5.1); Sodium 140 mmol/L (136-145); Total Bilirubin 0.4 mg/dL (0.15-1.2); Total Iron Binding Capacity 256 mcg/dl; Total Protein 6.9 g/dL (6.6-8.7); Unsaturated Iron Binding 205 ug/dL (112-347)
== END 2022-10-14 23:59 | disposition home or self-care (01) ==
PROVIDERS: Nurse Practitioner Family; PCP Family Medicine; Visit Provider Internal Medicine Hematology & Oncology
DX: C34.90 Malignant neoplasm of unspecified part of unspecified bronchus or lung; D64.9 Anemia, unspecified
CPT/HCPCS: 36591; 80053; 82728; 83540; 83550; 85025; 99214; J1642

== ENCOUNTER → 2022-10-16 11:32 | Outpatient (BNVA) | payer MEDICARE, SELFPAY | PROVIDERS: PCP Family Medicine; Visit Provider Family Medicine | DX: M77.8 Other enthesopathies, not elsewhere classified (principal) | CPT/HCPCS: 73030 ==

== ENCOUNTER 2022-11-01 09:35 | Outpatient (CLI) | payer MEDICARE, SELFPAY ==
--- NOTE | 2022-11-01 10:30 | CTR_ITS ---
PROCEDURE INFORMATION: Exam: CT Chest Without Contrast; Diagnostic Exam date and time: 11/01/2022 9:48 AM Age: 67 years old Clinical indication: Condition or disease; Lung condition and disease; Cancer of the lung; Bilateral; Unspecified; Primary cancer: Lung cancer; Prior surgery; Surgery date: 6+ months; Surgery type: Cardiac stents, port, aaa; Additional info: Compare to previous TECHNIQUE: Imaging protocol: Diagnostic computed tomography of the chest without contrast. Radiation optimization: All CT scans at this facility use at least one of these dose optimization techniques: automated exposure control; mA and/or kV adjustment per patient size (includes targeted exams where dose is matched to clinical indication); or iterative reconstruction. REPORTING DATA: Count of CT and Cardiac NM exams in prior 12 months: This patient has received 8 known CTs and 0 known cardiac nuclear medicine studies in the 12 months prior to the current study. COMPARISON: [facility] IN[facility] [id number] 04/06/2022 12:35 PM RADIATION DOSE METRICS: Total DLP (mGy-cm): 301.47 FINDINGS: Lungs: Compared with prior exam, interval improvement with decrease in size right hilar and suprahilar mass noted. Interval decrease in size with improvement in nodular area within the anterior upper right lung is seen as well. Interval improvement in increased density draped along the adjacent right mediastinum is seen. Lung windows demonstrate interval new areas nodular type opacity within the mid and lower right lung with today's exam, including adjacent and below the right hilar region.. Rounded nodule within the posterior upper left is stable. Scattered ground-glass opacity is seen mid and lower left lung on the lung windows with today's exam. Benign calcified granulomas within the right lung and around the right hilar region again noted. Findings indicate healed granulomatous disease. No pleural effusion or pneumothorax. Pleural spaces: See Lungs finding. Heart: No significant cardiomegaly. Coronary artery calcification. No pericardial effusion. Lymph nodes: Stable appearance right mediastinal/hilar node appearance. Vasculature: Arteriosclerosis of the thoracic aorta. Bones/joints: Spondylotic change thoracic spine. No acute osseous abnormality. Soft tissues: Unremarkable. CT/CT chest wo con [id number] IMPRESSION: 1. Suggestion of mild improvement or decrease in size right hilar and suprahilar mass with prior exam. This includes improvement in nodular areas in the anterior upper right lung. 2. Lung windows demonstrate interval new areas of nodular opacity within the mid and lower right lung, including around the inferior right hilar region. This could indicate superimposed pneumonia (including possibly related to treatment) or interval worsening of malignancy within the mid and lower right lung. Follow-up suggested. 3. Mild scattered ground-glass opacity within the mid and lower left lung on the lung windows could reflect inflammatory change or edema. 4. Stable appearance otherwise with previous exam.
== END 2022-11-01 09:36 | disposition home or self-care (01) ==
PROVIDERS: PCP Family Medicine; Visit Provider Internal Medicine Hematology & Oncology
DX: C34.90 Malignant neoplasm of unspecified part of unspecified bronchus or lung (principal)
CPT/HCPCS: 71250

== ENCOUNTER 2022-11-06 12:40 | Oncology outpatient (recurring) (ONCR) | payer MEDICARE, SELFPAY ==
[2022-11-06 12:42] VITALS: BMI 30.8
[2022-11-06 12:43] VITALS: BP 110/74; PULSE 0; RESP 18; TEMP 36.8; O2SAT 95
[2022-11-06 13:03] LABS: Basophils # 0.1 10^3/uL (0.0-0.1); Basophils % 0.7 %; Eosinophils # 0.2 10^3/uL (0.0-0.8); Eosinophils % 2.5 %; Hematocrit 35.5 % (37-53); Lymphocytes # 1.2 10^3/uL (0.8-4.8); Lymphocytes % 17.2 %; Mean Corpuscular HGB Conc 32.7 g/dL (30-55); Mean Corpuscular Hemoglobin 29.7 pg (27-33); Mean Corpuscular Volume 90.8 fl (82-101); Mean Platelet Volume 10.2 fL (7.4-10.4); Monocytes # 0.7 10^3/uL (0.2-0.9); Monocytes % 10.2 %; Neutrophils # 4.65 10^3/uL (1.8-7.7); Neutrophils % 69.1 %; Nucleated Red Blood Cells % 0 %; Platelet Count 203 10^3/cmm (157-399); Red Blood Count 3.91 10^6/uL (3.85-5.65); White Blood Count 6.74 10^3/uL (3.29-11.43)
[2022-11-06 13:21] LABS: Alanine Aminotransferase 10 U/L (0-41); Albumin Level 4.2 g/dL (3.5-5.2); Alkaline Phosphatase 112 U/L (40-130); Anion Gap 14.6 (5-19); Aspartate Amino Transferase 20 U/L (0-40); Blood Urea Nitrogen 28 mg/dL (8-23); Calcium 9.1 mg/dL (8.5-10.5); Carbon Dioxide 25 mmol/L (22-29); Chloride 103 mmol/L (98-107); Globulin 2.4 g/dL (1.3-4.6); Glomerular Filtration Rate 60.2 mL/min (90-130); Glucose 138 mg/dL (65-115); Osmolality Calculated 294 mOsm/kg (285-295); Potassium 4.6 mmol/L (3.5-5.1); Sodium 138 mmol/L (136-145); Total Bilirubin 0.4 mg/dL (0.15-1.2); Total Protein 6.6 g/dL (6.6-8.7)
== END 2022-11-14 23:59 | disposition home or self-care (01) ==
LOC: ONCMED 12:40
PROVIDERS: Internal Medicine Medical Oncology; PCP Family Medicine; Visit Provider Internal Medicine Hematology & Oncology
DX: Z08 Encounter for follow-up examination after completed treatment for malignant neoplasm; Z85.118 Personal history of other malignant neoplasm of bronchus and lung; D64.9 Anemia, unspecified; J33.9 Nasal polyp, unspecified; Z87.891 Personal history of nicotine dependence; Z92.21 Personal history of antineoplastic chemotherapy; Z92.3 Personal history of irradiation
CPT/HCPCS: 36591; 80053; 85025; 99215; J1642

== ENCOUNTER → 2022-11-26 09:48 | Outpatient (BNVA) | payer MEDICARE, SELFPAY | PROVIDERS: PCP Family Medicine; Visit Provider Otolaryngology | DX: Z71.1 Person with feared health complaint in whom no diagnosis is made (principal); C34.2 Malignant neoplasm of middle lobe, bronchus or lung | CPT/HCPCS: 99203; 99204 ==

== ENCOUNTER 2022-11-30 05:43 | Outpatient (CLI) | payer MEDICARE, SELFPAY ==
--- NOTE | 2022-11-30 11:30 | PETR_ITS ---
PROCEDURE INFORMATION: Exam: PET/CT Skull Base to Mid-thigh Exam date and time: 11/30/2022 12:27 PM Age: 67 years old Clinical indication: Condition or disease; Follow-up oncological assessment; Prior surgery; Surgery date: 6+ months; Surgery type: Cardiac stents, port, aaa; Patient HX: HX of lung cancer; Additional info: Abnormal CT scan - compare, jessy LABS AND CLINICAL REPORTS: Glucose: 103 mg/dl Treatment strategy for malignancy (PET staging): Restaging (PS) TECHNIQUE: Imaging protocol: Following at least four-hour fasting and following the injection of radiopharmaceutical, low dose CT images were obtained. Then, PET images were obtained. Attenuation corrected images were constructed using the CT scan. Fused images of PET and CT were reviewed. The standardized uptake values (SUV) reported below are maximum values within a region of interest, expressed in gm/ml. Exam includes orbital meatal line to mid-thigh. Radiopharmaceutical: 12.39 mCi F-18 FDG (Fluorodeoxyglucose), IV. Time of imaging post radiopharmaceutical administration: 1 hour Injection site: Right hand COMPARISON: CT chest 11/01/2022, PT PET [facility] SUBSEQ [id number] 06/15/2022 8:55 AM FINDINGS: Limitations: Motion artifact. Tubes, catheters and devices: A left subclavian central venous port catheter terminates in the proximal SVC. Brain: Visualized brain has normal physiologic uptake. Paranasal sinuses: There is mild non radiotracer avid mucosal thickening of the right maxillary sinus consistent with chronic benign sinusitis. Pharynx: No abnormal uptake. Larynx: No abnormal uptake. Lungs, pleura and trachea: Multifocal regions of patchy and nodular density are identified throughout the right lung and to a lesser extent in the left lower lobe similar to the CT from 11/01/2022, increased since the prior PET-CT. New elevated uptake identified in these regions in the right lung, greatest along the posteromedial right lower lobe in a region measuring 2.9 x 1.7 cm on series 3, image 59, SUV max 3.7. A right superior paratracheal region of elevated uptake extending into the right hilar region is noted, SUV max 4.9. There appear to be clustered partially calcified lymph nodes or mass in this region which are difficult to measure secondary to lack of intravenous contrast. The appearance however is similar compared with 11/01/2022 and the prior PET-CT from 06/15/2022 where there was a previous SUV max in this region of 6.4. Non radiotracer avid right hilar and subcarinal lymph nodes are also present. Heart: Normal physiologic uptake. Mediastinal space: No abnormal uptake. Liver: No abnormal uptake. Gallbladder and bile ducts: No abnormal uptake. Pancreas: No abnormal uptake. Spleen: No abnormal uptake. Calcified granulomas in the spleen are present. Adrenal glands: New soft tissue density nodularity of the right adrenal gland is noted compared to the prior PET-CT measuring 2.9 x 1.9 cm on series 3, image 89, SUV max 6.8. This appears increased compared with the prior CT of 11/01/2022 where the region of right adrenal nodularity measuring approximately 2.0 x 1.5 cm. Unremarkable left adrenal gland. Kidneys and ureters: Normal physiologic uptake. There are small bilateral nonobstructing renal calculi. Stomach and bowel: No abnormal uptake. There are scattered colonic diverticula. Vasculature: No abnormal uptake. There are diffuse atherosclerotic changes. A distal abdominal aortic stent graft is noted with limbs extending into the bilateral common iliac arteries. The [place] infrarenal abdominal aorta in this region measures approximately 4.6 cm in diameter. Lymph nodes: There is a new rounded soft tissue density structure likely representing a lymph node along the right lateral aspect of the pancreatic head compared to the prior PET-CT measuring 2.2 cm in diameter on series 3, image 100, SUV max 10.4. Bones/joints: There is mild asymmetric probable inflammatory uptake in the region of the right glenohumeral joint capsule, SUV max 4.8. Yudp-zh-reboplao diffuse degenerative vertebral body spondylosis is present. Suture anchors in the left humeral greater tuberosity are present. Soft tissues: No abnormal uptake in the visualized head, neck, chest, abdomen, pelvis, and extremities. METRICS: Mediastinal blood pool: SUV max 2.1 PET/PET [facility] SUBSEQ [id number] IMPRESSION: 1. Similar morphologic appearance a right superior paratracheal masslike density with an SUV max 4.9 (previously 6.4) which may represent an interval partial response to therapy. 2. Numerous regions of patchy nodular density throughout the right hemithorax and to a lesser extent in the left lower lobe have increased in demonstrate new uptake on the right (SUV max 3.7). Although atypical infectious involvement and/or post treatment changes may account for this appearance, the possibility of hypermetabolic malignancy cannot be excluded. 3. New right adrenal nodule since the prior PET-CT which is radiotracer avid consistent with a metastasis. 4. A radiotracer avid prominent lymph node along the right lateral aspect of the pancreatic head has developed since the prior PET-CT consistent with malignancy. 5. Additional nonurgent findings as detailed above.
== END 2022-11-30 05:44 | disposition home or self-care (01) ==
LOC: RAD 12-02 05:43
PROVIDERS: PCP Family Medicine; Visit Provider Nurse Practitioner Family
DX: C34.90 Malignant neoplasm of unspecified part of unspecified bronchus or lung (principal); C79.71 Secondary malignant neoplasm of right adrenal gland; C77.2 Secondary and unspecified malignant neoplasm of intra-abdominal lymph nodes
CPT/HCPCS: 78815; A9552

== ENCOUNTER 2022-12-05 07:50 | Oncology outpatient (recurring) (ONCR) | payer MEDICARE, SELFPAY ==
--- NOTE | 2022-12-05 16:39 | ONCRAD EPV_ITS ---
Radiation Oncology Established Patient Visit Patient: Karl Martinez [id number] : 1955> Age: 67> Sex: Male> Dictated by: Axel Garcia Date of Service: 12/05/2022 Referring Physician(s) : Dr. Ndiaye Diagnosis: C34.10 - Malignant neoplasm of upper lobe, unspecified bronchus or lung, Diagnosed 01/08/2022 (Active) Limited, T4, N2, M0 Radiotherapy to Date: Course: SVC - Rt Lung, Treatment Site: SCLCa - Rt Lung, Ref. ID: [id number], Energy: 6X, Dose/Fx (cGy): 200, #Fx: , Dose Correction (cGy): 0, Total Dose (cGy): 4,800 Start Date: 02/05/2022, End Date: 03/19/2022, Elapsed Days: 42 Current History: He notes 6moths of right flank pain worse over the last 2 months. It comes and goes. Currently absent. Occasionally up to 7 to 8 on 10 scale. Pain treated with APAP and ibuprofen. Some cough with clear sputum. No fevers. Currently on ATB for this. Previous chest radiation was poorly due to severe esophagitis requiring IV fluids for hydration Treatment was stopped early as a result this. PET/CT 11/30/2022. Stable pot treatment changes in right chest> New regions of increased uptake in new right adrenal nodule and in lymph node next to pancreatic head both worrisome for metastatic progression. Current Medications: Allergies: statins. Current Complaints / Review of Systems: . Vital Signs: BMI - 30.228 kg/m2 (high), Height - 67 in, Weight - 193 lbs, Temperature - 97.8 f, Pulse - 79 /min, Respiration - 16 /min, O2 Sat - 96 %, Pain - 0, Fatigue - 0 and BP - 124/ 82 mm(hg). Physical Exam: General: Alert and oriented x 3. No acute distress. No palpable cervical or supraclavicular adenopathy. Mild right flank tenderness to palpation. No pedal edema. Performance Status: 0 - 1 Pathology: Primary, c34.10 - malignant neoplasm of upper lobe, unspecified bronchus or lung, Diagnosed 01/08/2022 (active) limited, t4, n2, m0. Impression: Limited small cell lung cancer now with systemic relapse in right adrenal gland and upper abdominal para pancreatic lymph node. His flank pain which may be related to the adrenal involvement is well controlled. I recommend systemic treatment alone at this time. Reconsider palliative radiation at the time of any symptomatic progression. Discussed in detail with patient and spouse. Signed by: 12/05/2022 4:38:27 PM <<Signature on File>> Time spent with patient: CPT Code: CPT Code:
== END 2022-12-14 23:59 | disposition home or self-care (01) ==
PROVIDERS: PCP Family Medicine; Visit Provider Internal Medicine Hematology & Oncology
DX: C34.91 Malignant neoplasm of unspecified part of right bronchus or lung (principal); C79.71 Secondary malignant neoplasm of right adrenal gland; C77.9 Secondary and unspecified malignant neoplasm of lymph node, unspecified; D64.9 Anemia, unspecified; J33.9 Nasal polyp, unspecified; Z87.891 Personal history of nicotine dependence
CPT/HCPCS: 99215

== ENCOUNTER 2022-12-17 07:58 | Oncology outpatient (recurring) (ONCR) | payer MEDICARE, SELFPAY ==
[2022-12-17 07:59] VITALS: BP 138/84; PULSE 72; RESP 16; TEMP 36.4; O2SAT 95
[2022-12-17 08:11] LABS: Basophils # 0.1 10^3/uL (0.0-0.1); Basophils % 0.8 %; Eosinophils # 0.3 10^3/uL (0.0-0.8); Eosinophils % 4.1 %; Hematocrit 36.9 % (37-53); Lymphocytes # 1.4 10^3/uL (0.8-4.8); Lymphocytes % 19.2 %; Mean Corpuscular HGB Conc 33.3 g/dL (30-55); Mean Platelet Volume 10.6 fL (7.4-10.4); Monocytes # 0.9 10^3/uL (0.2-0.9); Neutrophils # 4.49 10^3/uL (1.8-7.7); Neutrophils % 63.6 %; Nucleated Red Blood Cells % 0 %; Platelet Count 232 10^3/cmm (157-399); Red Cell Distribution Width 15.6 % (12.1-15.1); White Blood Count 7.07 10^3/uL (3.29-11.43)
[2022-12-17 08:29] LABS: Alanine Aminotransferase 9 U/L (0-41); Albumin Level 4.3 g/dL (3.5-5.2); Alkaline Phosphatase 119 U/L (40-130); Anion Gap 13.7 (5-19); Aspartate Amino Transferase 19 U/L (0-40); Blood Urea Nitrogen 26 mg/dL (8-23); Calcium 9.5 mg/dL (8.5-10.5); Carbon Dioxide 26 mmol/L (22-29); Chloride 104 mmol/L (98-107); Creatine Phosphokinase 52 U/L (39-308); Globulin 2.6 g/dL (1.3-4.6); Glomerular Filtration Rate 66.6 mL/min (90-130); Glucose 91 mg/dL (65-115); Osmolality Calculated 292 mOsm/kg (285-295); Potassium 4.7 mmol/L (3.5-5.1); Sodium 139 mmol/L (136-145); Total Bilirubin 0.4 mg/dL (0.15-1.2); Total Protein 6.9 g/dL (6.6-8.7)
[2022-12-17] MEDS: sodium chloride 0.9% 250 ML 75 ML IV (11:00)
[2022-12-17] MEDS: palonosetron 0.25 mg/5 mL SDV IVP (11:03)
[2022-12-17] MEDS: SODIUM CHLORIDE 0.9% IV (11:33)
[2022-12-17] MEDS: LURBINECTEDIN IV (11:33)
[2022-12-17 12:46] VITALS: BP 134/73; PULSE 77; RESP 17; TEMP 36.4; O2SAT 91
== END 2022-12-17 23:59 | disposition home or self-care (01) ==
PROVIDERS: Internal Medicine Medical Oncology; PCP Family Medicine; Visit Provider Internal Medicine Hematology & Oncology
DX: C34.90 Malignant neoplasm of unspecified part of unspecified bronchus or lung (principal); D64.9 Anemia, unspecified; Z51.11 Encounter for antineoplastic chemotherapy; J33.9 Nasal polyp, unspecified; Z79.899 Other long term (current) drug therapy; Z53.9 Procedure and treatment not carried out, unspecified reason
CPT/HCPCS: 80053; 82550; 85025; 96367; 96375; 96413; 99215; J1100; J1642; J2469; J7050; J9999

== ENCOUNTER 2022-12-31 09:39 | Outpatient (CLI) | payer MEDICARE, SELFPAY ==
--- NOTE | 2022-12-31 10:15 | MR_ITS ---
WS: [id number] MRI BRAIN WITH AND WITHOUT CONTRAST HISTORY: onset of headaches with SCLC COMPARISON: 09/11/2022 TECHNIQUE: Multiplanar imaging performed through the brain with MultiHance 20 ml's IV. No acute infarcts are seen. Cadena-white matter differentiation is well preserved. Moderate atrophy. Mo derate small vessel ischemic type changes are very similar to 09/11/2022. More than expected for the p atient's age. Periventricular and subcortical white matter signal abnormalities are identified. No susceptibility artifacts or prior lacunar infarcts. Ventricles and extra-axial spaces are normal. Clivus and pituitary gland are normal. Visualized posterior fossa and brainstem are also normal. Postcontrast images are negative for masses or vascular malformations. Dural venous sinuses are normal. Paranasal sinuses: Reidentified is a small polypoid lesion adjacent to the RIGHT middle nasal turbina te extending over a length of 10 mm. No interval change since 09/11/2022. Mastoid air cells: Normal. Calvarium and scalp: Normal. IMPRESSION: 1. No metastatic disease to the brain. 2. 2 stable moderate atrophy and small vessel ischemic disease. Very similar to the prior study with out progression. 3. No acute infarct. 4. Stable polypoid nodule along the RIGHT middle nasal turbinate.
[2022-12-31] MEDS: gadobenate dimeglumine 20 mL vial IV (10:27)
== END 2022-12-31 09:40 | disposition home or self-care (01) ==
LOC: RAD 09:39
PROVIDERS: PCP Family Medicine; Visit Provider Nurse Practitioner Family
DX: C34.2 Malignant neoplasm of middle lobe, bronchus or lung (principal); C79.71 Secondary malignant neoplasm of right adrenal gland; R51.9 Headache, unspecified; I67.89 Other cerebrovascular disease; J33.8 Other polyp of sinus; G89.3 Neoplasm related pain (acute) (chronic); D63.0 Anemia in neoplastic disease; D70.9 Neutropenia, unspecified; J33.9 Nasal polyp, unspecified; Z79.2 Long term (current) use of antibiotics; Z87.891 Personal history of nicotine dependence; Z92.21 Personal history of antineoplastic chemotherapy; Z92.3 Personal history of irradiation
CPT/HCPCS: 70553; 99214; A9577

== ENCOUNTER 2023-01-07 09:45 | Oncology outpatient (recurring) (ONCR) | payer MEDICARE, SELFPAY ==
[2022-12-24 09:08] VITALS: BP 108/77; PULSE 58; RESP 18; TEMP 36.3; O2SAT 98
[2022-12-24 09:26] LABS: Basophils % 0.6 %; Eosinophils # 0.1 10^3/uL (0.0-0.8); Eosinophils % 1.1 %; Hematocrit 34.8 % (37-53); Lymphocytes % 15.7 %; Mean Corpuscular Hemoglobin 29.6 pg (27-33); Mean Corpuscular Volume 89.7 fl (82-101); Mean Platelet Volume 10.7 fL (7.4-10.4); Monocytes # 0.2 10^3/uL (0.2-0.9); Neutrophils # 4.96 10^3/uL (1.8-7.7); Neutrophils % 78.6 %; Nucleated Red Blood Cells % 0 %; Platelet Count 164 10^3/cmm (157-399); Red Blood Count 3.88 10^6/uL (3.85-5.65); Red Cell Distribution Width 14.9 % (12.1-15.1); White Blood Count 6.31 10^3/uL (3.29-11.43)
[2022-12-24 09:47] LABS: Alanine Aminotransferase 21 U/L (0-41); Albumin Level 4.3 g/dL (3.5-5.2); Alkaline Phosphatase 115 U/L (40-130); Anion Gap 13.6 (5-19); Aspartate Amino Transferase 21 U/L (0-40); Blood Urea Nitrogen 34 mg/dL (8-23); Carbon Dioxide 26 mmol/L (22-29); Chloride 101 mmol/L (98-107); Globulin 2.7 g/dL (1.3-4.6); Glomerular Filtration Rate 66.6 mL/min (90-130); Glucose 97 mg/dL (65-115); Osmolality Calculated 290 mOsm/kg (285-295); Potassium 4.6 mmol/L (3.5-5.1); Sodium 136 mmol/L (136-145); Total Bilirubin 1.2 mg/dL (0.15-1.2)
[2022-12-31 10:27] LABS: Hematocrit 33.5 % (37-53); Mean Corpuscular HGB Conc 32.2 g/dL (30-55); Mean Corpuscular Hemoglobin 29.3 pg (27-33); Mean Platelet Volume 10.3 fL (7.4-10.4); Platelet Count 169 10^3/cmm (157-399); Red Blood Count 3.68 10^6/uL (3.85-5.65); Red Cell Distribution Width 15.2 % (12.1-15.1)
[2022-12-31 10:47] LABS: Alanine Aminotransferase 12 U/L (0-41); Albumin Level 4.2 g/dL (3.5-5.2); Alkaline Phosphatase 123 U/L (40-130); Anion Gap 13.3 (5-19); Aspartate Amino Transferase 18 U/L (0-40); Blood Urea Nitrogen 29 mg/dL (8-23); Calcium 9.4 mg/dL (8.5-10.5); Carbon Dioxide 26 mmol/L (22-29); Chloride 103 mmol/L (98-107); Globulin 2.6 g/dL (1.3-4.6); Glomerular Filtration Rate 74.3 mL/min (90-130); Glucose 98 mg/dL (65-115); Osmolality Calculated 292 mOsm/kg (285-295); Potassium 4.3 mmol/L (3.5-5.1); Sodium 138 mmol/L (136-145); Total Bilirubin 0.3 mg/dL (0.15-1.2); Total Protein 6.8 g/dL (6.6-8.7)
[2022-12-31 11:29] LABS: Slide Review Slide Review Perform
[2022-12-31 11:30] LABS: Absolute Eosinophils 0.1 10^3/cmm (0.0-0.7); Absolute Segmented Neutrophil 0.9 10/cmm (1.6-7.1); Eosinophils 4 %; Lymphocytes 33 %; Lymphocytes Absolute 1.1 10^3/cmm (1.2-3.4); Monocytes Absolute 0.3 10^3/cmm (0.1-0.6); Segmented Neutrophils 37 %; Total Cells Counted 100 (0-100)
[2022-12-31 11:31] LABS: Absolute Neutrophil 0.9 10^3/cmm (1.4-6.5); Anisocytosis 1+; Giant Platelets 1+; Macrocytosis 1+; Platelet Estimate Normal (Normal)
[2023-01-02 10:30] VITALS: BP 136/90; PULSE 80; RESP 18; TEMP 36.1; O2SAT 97
[2023-01-02 10:30] LABS: Basophils % 0.4 %; Eosinophils # 0.1 10^3/uL (0.0-0.8); Eosinophils % 3.5 %; Hematocrit 32.9 % (37-53); Lymphocytes # 0.9 10^3/uL (0.8-4.8); Lymphocytes % 35.2 %; Mean Corpuscular HGB Conc 33.1 g/dL (30-55); Mean Corpuscular Hemoglobin 30.1 pg (27-33); Mean Corpuscular Volume 90.9 fl (82-101); Mean Platelet Volume 10.3 fL (7.4-10.4); Monocytes # 0.9 10^3/uL (0.2-0.9); Neutrophils % 26.9 %; Nucleated Red Blood Cells % 0 %; Platelet Count 209 10^3/cmm (157-399); Red Blood Count 3.62 10^6/uL (3.85-5.65); Red Cell Distribution Width 15.3 % (12.1-15.1); White Blood Count 2.56 10^3/uL (3.29-11.43)
[2023-01-02 10:35] LABS: Neutrophils # 0.69 10^3/uL (1.8-7.7)
[2023-01-07 09:36] VITALS: BP 127/82; PULSE 67; RESP 16; TEMP 36.7; O2SAT 94
[2023-01-07] MEDS: alteplase 1 mg/mL SDV 2 mL 2 MG INTRACATH (09:58)
[2023-01-07 10:00] LABS: Basophils % 0.9 %; Eosinophils # 0.1 10^3/uL (0.0-0.8); Eosinophils % 1.1 %; Hematocrit 35.9 % (37-53); Lymphocytes # 1.1 10^3/uL (0.8-4.8); Lymphocytes % 24.7 %; Mean Corpuscular HGB Conc 32.6 g/dL (30-55); Mean Corpuscular Hemoglobin 29.7 pg (27-33); Mean Corpuscular Volume 91.1 fl (82-101); Mean Platelet Volume 9.7 fL (7.4-10.4); Monocytes % 21.4 %; Neutrophils # 2.37 10^3/uL (1.8-7.7); Neutrophils % 51.7 %; Nucleated Red Blood Cells % 0 %; Platelet Count 254 10^3/cmm (157-399); Red Blood Count 3.94 10^6/uL (3.85-5.65); Red Cell Distribution Width 15.6 % (12.1-15.1); White Blood Count 4.58 10^3/uL (3.29-11.43)
[2023-01-07 10:26] LABS: Alanine Aminotransferase 9 U/L (0-41); Albumin Level 4.1 g/dL (3.5-5.2); Alkaline Phosphatase 128 U/L (40-130); Anion Gap 14.1 (5-19); Aspartate Amino Transferase 16 U/L (0-40); Blood Urea Nitrogen 24 mg/dL (8-23); Calcium 9.7 mg/dL (8.5-10.5); Carbon Dioxide 27 mmol/L (22-29); Chloride 102 mmol/L (98-107); Chol HDL Ratio 3.31 mg/dL (1.0-5.00); Cholesterol 149 mg/dL (0-200); Creatine Phosphokinase 41 U/L (39-308); Glomerular Filtration Rate 60.2 mL/min (90-130); Glucose 96 mg/dL (65-115); HDL Cholesterol 45 mg/dL (60-100); LDL Cholesterol Calculated 87 mg/dL (50-129); LDL HDL Ratio 1.93 RATIO (0.00-3.22); Osmolality Calculated 290 mOsm/kg (285-295); Potassium 5.1 mmol/L (3.5-5.1); Sodium 138 mmol/L (136-145); Total Bilirubin 0.4 mg/dL (0.15-1.2); Total Protein 7.1 g/dL (6.6-8.7); Triglycerides 85 mg/dL (0-150)
[2023-01-07] MEDS: palonosetron 0.25 mg/5 mL SDV IVP (12:31)
[2023-01-07] MEDS: sodium chloride 0.9% 250 ML 75 ML IV (12:31)
[2023-01-07] MEDS: SODIUM CHLORIDE 0.9% IV (13:07)
[2023-01-07] MEDS: LURBINECTEDIN IV (13:07)
[2023-01-07 15:19] VITALS: BP 117/84; PULSE 79; TEMP 35.6; O2SAT 97
== END 2023-01-07 23:59 | disposition home or self-care (01) ==
PROVIDERS: Nurse Practitioner Family; PCP Family Medicine; Visit Provider Internal Medicine Medical Oncology
DX: C34.2 Malignant neoplasm of middle lobe, bronchus or lung (principal); D64.9 Anemia, unspecified; J33.9 Nasal polyp, unspecified; Z79.899 Other long term (current) drug therapy; Z51.11 Encounter for antineoplastic chemotherapy
CPT/HCPCS: 36415; 36591; 36593; 70553; 80053; 80061; 82550; 85007; 85025; 96367; 96375; 96413; 99213; 99214; A9577; J1100; J1642; J2469; J2997; J7050; J9999

== ENCOUNTER 2023-01-22 16:57 | Inpatient (IN) | payer MEDICARE, SELFPAY ==
[2023-01-22 17:11] VITALS: BP 129/70; PULSE 119; RESP 17; TEMP 39.1; O2SAT 92; BMI 29.7
--- NOTE | 2023-01-22 17:18 | ECG_ITS ---
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 Measurements Intervals Guinda Rate: 113 P: 7 ID: [id number] QRS: -71 QRSD: 102 T: 75 QT: 318 QTc: 436 Interpretive Statements SINUS TACHYCARDIA PATTERN CONSISTENT WITH PULMONARY DISEASE LEFT ANTERIOR FASCICULAR BLOCK [QRS AXIS <= -45, QR IN I, RS IN II] Compared to ECG 02/04/2022 09:24:18 Sinus rhythm no longer present First degree AV block no longer present Electronically Signed On 01-23-2023 0:44:49 EQUIP TECH by Asuncion Benjamin M.D. [id number]
--- NOTE | 2023-01-22 17:18 | XRR_ITS ---
PROCEDURE INFORMATION: Exam: XR Chest Exam date and time: 01/22/2023 5:22 PM Age: 67 years old Clinical indication: Shortness of breath; Additional info: SOB TECHNIQUE: Imaging protocol: Radiologic exam of the chest. Views: 1 view. COMPARISON: CT chest gerhard [id number] 11/01/2022 9:48 AM FINDINGS: Tubes, catheters and devices: Left subclavian central venous access catheter or port remains in good position with prior CT chest exam. Lungs: Nodular type opacity seen medial lower right lung below the right hilum. Patchy interstitial infiltrate is seen within both lower lungs. No significant pleural effusion. No pneumothorax. Pleural spaces: See Lungs finding. Heart/Mediastinum: Cardiac size is within normal limits. Vasculature: Mild calcification thoracic aorta. Bones/joints: Visualized osseous structures show no acute abnormality. Minimal thoracic scoliosis. XR/XR chest 1V portable [id number] IMPRESSION: Nodular type opacity medial lower right lung below the right hilum, along with patchy interstitial type infiltrate within both lower lungs. Findings worrisome for mass appearance inferior to the right hilum within the medial lower right lung, with suggestion of interval worsened appearance from prior CT chest. Patchy interstitial infiltrate within both lower lungs more suggestive of pneumonia appearance. Follow-up suggested.
[2023-01-22 17:43] VITALS: PULSE 68; RESP 17; O2SAT 98
[2023-01-22] MEDS: piperacillin-tazobactam 3.375 GM in sodium chloride 0.9% (plus) 50 ML IV ×2 (17:53→23:54)
--- NOTE | 2023-01-22 17:53 | ED_ITS ---
HPI - Fever General: Chief Complaint: Fever Stated Complaint: Fever\Cancer PT Time Seen by Provider: 01/22/23 17:17 Source: patient Mode of arrival: ambulatory Limitations: no limitations History of Present Illness: 67-year-old male with a history of cancer he is currently on chemo he states that he had had neutropenia recently he states that today he had a fever he does have a fever here 102 he states over the last 2 days he has had a increasing cough along with shortness of breath. He has body aches and chills as well. Denies any vomiting or diarrhea denies any abdominal pain. Associated symptoms: Reports chills; Deny abdominal pain, chest pain, diarrhea, dysuria, headache(s), nausea or vomiting Review of Systems Const: Reports: fever(s), chills and body aches; Denies: change in appetite Eyes: Denies: eye discomfort ENMT: Denies: throat pain or dental pain Card: Denies: chest pain Resp: Reports: dyspnea and productive cough GI: Denies: abdominal pain, nausea, vomiting or diarrhea : Denies: dysuria Musc: Denies: neck pain or back pain Skin/Breast: Denies: rash Neuro: Denies: headache(s) PFSH ED PFSH: Medical History Abdominal aortic aneurysm Carpal tunnel syndrome on both sides Chronic back pain Congenital umbilical hernia COPD (chronic obstructive pulmonary disease) Coronary artery disease GERD (gastroesophageal reflux disease) Hypertension Neutropenia Past heart attack Port-A-Cath in place Small cell lung cancer, right middle lobe Surgical History History of bilateral carpal tunnel release History of endovascular stent graft for abdominal aortic aneurysm (AAA) History of heart artery stent History of tonsillectomy and adenoidectomy Hx of umbilical hernia repair S/P AAA repair using bifurcation graft S/P rotator cuff repair Family History Family/Other Cancer Father CAD (coronary artery disease) Stroke Brother CAD (coronary artery disease) Brother CAD (coronary artery disease) Diabetes Sister CAD (coronary artery disease) Cancer Chronic kidney disease (CKD) Diabetes Sister Cancer Diabetes Mother Stroke Other Hyperlipidemia Hypertension Psychiatric illness Denies family history of Clotting disorder Dementia Suicide Anesthesia complication Bleeding disorder Lung disease Social History Smoking and tobacco/nicotine status: former use of tobacco/nicotine (smoked x 50+ years) Quit status (tobacco/nicotine): has quit using Year quit tobacco: 2021 Former quit date comment: December 2021 Alcohol intake: never Substance/Drug Use: never Physical Exam Const: COMMON NORMALS: patient oriented x3 GENERAL APPEARANCE: in distress and ill appearing HENMT: COMMON NORMALS: normocephalic and atraumatic HEAD & SCALP: normocephalic and atraumatic Eye: COMMON NORMALS: Equal, round and reactive pupils present and EOMs intact bilaterally PUPIL: Yes Equal, round and reactive pupils present Neck/C-Spine: COMMON NORMALS: full ROM and supple Chest: COMMONS NORMALS: normal inspection of the chest and normal palpation of entire chest wall Resp: COMMON NORMALS: No retractions and No use of accessory muscles EFFORT & INSPECTION: Yes tachypneic and Yes respiratory distress AUSCULTATION: rales Cardio: COMMON NORMALS: regular rhythm and No murmurs present (Cardio) RATE: tachycardic RHYTHM: regular rhythm GI: COMMON NORMALS: Normal to inspection, nondistended, normoactive bowel sounds present, Soft to palpation, non-tender and no masses PALPATION: Yes Soft to palpation Extremity: COMMON NORMALS: normal to inspection and full ROM Neuro: COMMON NORMALS: patient oriented x3, moves all extremities and no focal motor deficits Psych: COMMON NORMALS: mental status grossly normal, Normal thought process present and cooperative THOUGHT PROCESS: Normal thought process present Skin: COMMON NORMALS: no rashes or lesions noted and no wounds GENERAL SKIN EXAM: no rashes or lesions noted Course Vital Signs: Vital signs: Vital Signs Temperature 101.6 F H 01/22/23 18:05 Pulse Rate 103 H 01/22/23 18:05 Respiratory Rate 17 01/22/23 17:43 Blood Pressure 122/66 01/22/23 18:05 Pulse Oximetry 91 01/22/23 18:05 Oxygen Delivery Me thod Room Air 01/22/23 18:05 MDM - Fever Medical Decision Making Patient presents here with pneumonia seen on x-ray likely causing his fever he is not neutropenic here but will admit for IV to biotics that he is having hypoxia. Medical Records I reviewed the patient's medical records. Lab Data I reviewed the patient's lab results. 01/22/23 18:15 01/22/23 18:15 Radiology Impressions Chest X-Ray 01/22/23 17:18 IMPRESSION: Nodular type opacity medial lower right lung below the right hilum, along with patchy interstitial type infiltrate within both lower lungs. Findings worrisome for mass appearance inferior to the right hilum within the medial lower right lung, with suggestion of interval worsened appearance from prior CT chest. Patchy interstitial infiltrate within both lower lungs more suggestive of pneumonia appearance. Follow-up suggested. Laboratory Results WBC 3.09 10^3/uL (3.29-11.43) L 01/22/23 18:15 RBC 3.43 10^6/uL (3.85-5.65) L 01/22/23 18:15 Hgb 10.40 g/dL (11.27-16.99) L 01/22/23 18:15 Hct 30.9 % (37-53) L 01/22/23 18:15 MCV 90.1 fl (82-101) 01/22/23 18:15 MCH 30.3 pg (27-33) 01/22/23 18:15 MCHC 33.7 g/dL (30-55) 01/22/23 18:15 RDW 15.9 % (12.1-15.1) H 01/22/23 18:15 Plt Count 173 10^3/cmm (157-399) 01/22/23 18:15 MPV 10.8 fL (7.4-10.4) H 01/22/23 18:15 Neut % (Auto) 37.0 % 01/22/23 18:15 Lymph % (Auto) 23.6 % 01/22/23 18:15 Shannon % (Auto) 36.6 % 01/22/23 18:15 Eos % (Auto) 0.6 % 01/22/23 18:15 Baso % (Auto) 0.3 % 01/22/23 18:15 Neut # (Auto) 1.14 10^3/uL (1.8-7.7) L 01/22/23 18:15 Lymph # (Auto) 0.7 10^3/uL (0.8-4.8) L 01/22/23 18:15 Shannon # (Auto) 1.1 10^3/uL (0.2-0.9) H 01/22/23 18:15 Eos # (Auto) 0.0 10^3/uL (0.0-0.8) 01/22/23 18:15 Baso # (Auto) 0.0 10^3/uL (0.0-0.1) 01/22/23 18:15 Nucleated RBC % (auto) 0 % 01/22/23 18:15 Nucleated RBCs # 0.0 /100WBC 01/22/23 18:15 PT 14.40 SECONDS (12.1-14.9) 01/22/23 18:15 INR 1.09 (0.8-1.2) 01/22/23 18:15 Sodium 139 mmol/L (136-145) 01/22/23 18:15 Potassium 4.0 mmol/L (3.5-5.1) 01/22/23 18:15 Chloride 104 mmol/L (98-107) 01/22/23 18:15 Carbon Dioxide 22 mmol/L (22-29) 01/22/23 18:15 Anion Gap 17.0 (5-19) 01/22/23 18:15 BUN 27 mg/dL (8-23) H 01/22/23 18:15 Creatinine 1.1 mg/dL (0.7-1.2) 01/22/23 18:15 GFR Calculation 66.6 mL/min (90-130) L 01/22/23 18:15 Glucose 109 mg/dL (65-115) 01/22/23 18:15 Calculated Osmolality 294 mOsm/kg (285-295) 01/22/23 18:15 Lactic Acid 1.9 mmol/L (0.5-2.2) 01/22/23 18:15 Calcium 9.3 mg/dL (8.5-10.5) 01/22/23 18:15 Total Bilirubin 0.4 mg/dL (0.15-1.2) 01/22/23 18:15 AST 17 U/L (0-40) 01/22/23 18:15 ALT 10 U/L (0-41) 01/22/23 18:15 Alkaline Phosphatase 108 U/L (40-130) 01/22/23 18:15 Total Protein 6.3 g/dL (6.6-8.7) L 01/22/23 18:15 Albumin 3.9 g/dL (3.5-5.2) 01/22/23 18:15 Globulin 2.4 g/dL (1.3-4.6) 01/22/23 18:15 SARS-CoV-2 Ag (Rapid) negative (Negative) 01/22/23 18:12 All radiology interpretation(s) finalized by discharge Discharge Plan Discharge Patient Disposition: Admitted As Inpatient Clinical Impression: Small cell lung cancer, Community acquired pneumonia Condition: Stable Coding Level of Care Code 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
[2023-01-22 18:05] VITALS: BP 122/66; PULSE 103; TEMP 38.7; O2SAT 91
[2023-01-22] MEDS: acetaminophen 500 mg Tablet 1000 MG PO (18:09)
[2023-01-22 18:24] LABS: Basophils % 0.3 %; Eosinophils % 0.6 %; Hematocrit 30.9 % (37-53); Lymphocytes # 0.7 10^3/uL (0.8-4.8); Lymphocytes % 23.6 %; Mean Corpuscular HGB Conc 33.7 g/dL (30-55); Mean Corpuscular Hemoglobin 30.3 pg (27-33); Mean Corpuscular Volume 90.1 fl (82-101); Mean Platelet Volume 10.8 fL (7.4-10.4); Monocytes # 1.1 10^3/uL (0.2-0.9); Monocytes % 36.6 %; Neutrophils # 1.14 10^3/uL (1.8-7.7); Nucleated Red Blood Cells % 0 %; Platelet Count 173 10^3/cmm (157-399); Red Blood Count 3.43 10^6/uL (3.85-5.65); Red Cell Distribution Width 15.9 % (12.1-15.1); White Blood Count 3.09 10^3/uL (3.29-11.43)
[2023-01-22 18:39] LABS: INR 1.09 (0.8-1.2)
[2023-01-22 18:41] LABS: SARS Covid-2 Antigen negative (Negative)
[2023-01-22 18:45] LABS: Alanine Aminotransferase 10 U/L (0-41); Albumin Level 3.9 g/dL (3.5-5.2); Alkaline Phosphatase 108 U/L (40-130); Aspartate Amino Transferase 17 U/L (0-40); Blood Urea Nitrogen 27 mg/dL (8-23); Calcium 9.3 mg/dL (8.5-10.5); Carbon Dioxide 22 mmol/L (22-29); Chloride 104 mmol/L (98-107); Globulin 2.4 g/dL (1.3-4.6); Glomerular Filtration Rate 66.6 mL/min (90-130); Glucose 109 mg/dL (65-115); Osmolality Calculated 294 mOsm/kg (285-295); Sodium 139 mmol/L (136-145); Total Bilirubin 0.4 mg/dL (0.15-1.2); Total Protein 6.3 g/dL (6.6-8.7)
[2023-01-22 18:46] LABS: Lactic Sepsis W/Reflex 1.9 mmol/L (0.5-2.2)
[2023-01-22 18:54] LABS: Slide Review Slide Review Perform
[2023-01-22] MEDS: vancomycin 1,000 MG in sodium chloride 0.9% 250 ML 250 MG IV (19:13)
[2023-01-22 19:32] LABS: Add Urine Microscopic? NO; Charge for UA Resulting for Rev
[2023-01-22 19:34] LABS: Urine Appearance Clear (CLEAR); Urine Color Yellow (Yellow); pH Urine 5 (5-7)
[2023-01-22 19:35] LABS: Bilirubin Urine Neg (Negative); Blood Urine Neg (Negative); Glucose Urine UA Norm (Normal); Ketones Urine 1+ (Negative); Leukocyte Esterase Urine Negative (Negative); Nitrate Urine Negative (Negative); Protein Urine Neg (Negative); Urobilinogen Urine Norm (Negative)
[2023-01-22 19:56] VITALS: BP 109/67; PULSE 91; TEMP 36.9; O2SAT 91
--- NOTE | 2023-01-22 20:01 | P.HP_ITS ---
Providers/Chief Complaint Admitting Physician: Salazar Mcbride Primary Care Provider: Lianet Hannah MD Chief Complaint: Fever\Cancer PT History of Present Illness Pleasant 67-year-old gentleman with recurrent metastatic small cell lung cancer with mets including around his pancreas and right adrenal, recently started on palliative chemotherapy 2 weeks ago, subsequently several days afterwards started feeling unwell. At the end of December had a course of treatment with Levaquin. Comes into the hospital due to worsening dyspnea particularly this morning, states he was panting for air, as well as fever up to 104. Yesterday his neutrophils were 650. Review of Systems Const: Denies: fever(s), chills, body aches or malaise ENMT: Denies: throat pain Card: Denies: chest pain, edema, pre-syncope or dyspnea on exertion Resp: Denies: dyspnea, productive cough, change in phlegm color or hemoptysis GI: Denies: abdominal pain, nausea, vomiting, diarrhea, constipation, hematochezia or melena : Denies: flank pain, difficulty urinating, urinary frequency or hematuria Musc: Denies: back pain, joint swelling or joint redness Skin/Breast: Denies: rash or new lesions Neuro: Denies: headache(s), numbness in extremities, weakness in extremities, dizziness, confusion or seizure-like activity Medications/Allergies Home Medications Medication Instructions Recorded Confirmed Last Taken Type aspirin 81 mg tablet,delayed 81 mg PO QAM 01/07/22 01/21/23 05/19/22 History release nitroglycerin 0.4 mg sublingual 0.4 mg sublingual Q5M PRN Chest 02/21/22 01/21/23 Unknown Rx tablet (Nitrostat) Pain #25 tabs tizanidine 2 mg tablet 2 mg PO Q8H PRN muscle spasticity 02/21/22 01/21/23 Unknown Rx #30 tabs lidocaine-prilocaine 2.5 %-2.5 % 1 applic topical .COMPLEX #30 grams 05/13/22 01/21/23 05/17/22 Rx topical cream prochlorperazine maleate 10 mg 10 mg PO Q4H PRN Nausea 05/20/22 01/21/23 Unknown History tablet (Compazine) ferrous sulfate 325 mg (65 mg 325 mg PO DAILY 06/28/22 01/21/23 Unknown History iron) tablet ascorbic acid (vitamin C) 1,000 mg 1 g PO DAILY 08/09/22 01/21/23 Unknown History capsule cholecalciferol (vitamin D3) 125 125 mcg PO DAILY 08/09/22 01/21/23 Unknown History mcg (5,000 unit) capsule mecobalamin (vitamin B12) 500 mcg See Rx Instructions PO DAILY 08/09/22 01/21/23 Unknown History chewable tablet [id number] 150 mcg-vit K1 1 tab PO DAILY 08/09/22 01/21/23 Unknown History 30 mcg-lycop 300 mcg-lutein tablet (Centrum Minis Men 50 Plus) Focus Factor PO DAILY 11/06/22 01/21/23 Unknown History fluticasone propionate 50 1 spray intranasal Q12H #16 grams 12/04/22 01/21/23 Unknown Rx mcg/actuation nasal spray,suspension gabapentin 300 mg capsule 300 mg PO BEDTIME 30 days #30 caps 12/04/22 01/21/23 Unknown Rx omeprazole 20 mg capsule,delayed 20 mg PO QAM 90 days #90 caps 12/04/22 01/21/23 Unknown Rx release lorazepam 1 mg tablet 0.5 - 1 mg PO Q6H PRN Severe 12/16/22 01/21/23 Unknown Rx Nausea #30 tabs acetaminophen 650 mg 650 mg PO Q8H 12/17/22 01/21/23 Unknown History tablet,extended release (Pain Relief (acetaminophen)) dextromethorphan-guaifenesin 5 10 ml PO Q6H PRN 12/17/22 01/21/23 Unknown History mg-100 mg/5 mL oral liquid (Robitussin Cough-Chest Congestion DM) ibuprofen 200 mg capsule 200 mg PO Q6H PRN 12/17/22 01/21/23 Unknown History ondansetron HCl 4 mg tablet 4 mg PO QID PRN Nausea/vomiting 12/17/22 01/21/23 Unknown Rx #30 tabs prochlorperazine maleate 10 mg 10 mg PO Q4H PRN Mild Nausea #30 12/17/22 01/21/23 Unknown Rx tablet (Compazine) tabs levofloxacin 500 mg tablet 500 mg PO DAILY 7 days #7 tabs 12/31/22 01/21/23 Unknown Rx Allergies Allergy/AdvReac Type Severity Reaction Status Date / Time [id number] Reductase Allergy Unknown Verified 01/21/23 11:24 Inhibitor PFSH Acute PFSH: Medical History (Updated 01/22/23 @ 20:11 by Salazar Mcbride MD) Abdominal aortic aneurysm Carpal tunnel syndrome on both sides Chronic back pain Congenital umbilical hernia COPD (chronic obstructive pulmonary disease) Coronary artery disease GERD (gastroesophageal reflux disease) Hypertension Neutropenia Past heart attack Port-A-Cath in place Small cell lung cancer, right middle lobe Surgical History History of bilateral carpal tunnel release History of endovascular stent graft for abdominal aortic aneurysm (AAA) History of heart artery stent History of tonsillectomy and adenoidectomy Hx of umbilical hernia repair S/P AAA repair using bifurcation graft S/P rotator cuff repair Family History Family/Other Cancer Father CAD (coronary artery disease) Stroke Brother CAD (coronary artery disease) Brother CAD (coronary artery disease) Diabetes Sister CAD (coronary artery disease) Cancer Chronic kidney disease (CKD) Diabetes Sister Cancer Diabetes Mother Stroke Other Hyperlipidemia Hypertension Psychiatric illness Denies family history of Clotting disorder Dementia Suicide Anesthesia complication Bleeding disorder Lung disease Social History Smoking and tobacco/nicotine status: former use of tobacco/nicotine (smoked x 50+ years) Quit status (tobacco/nicotine): has quit using Year quit tobacco: 2021 Former quit date comment: December 2021 Alcohol intake: never Substance/Drug Use: never Vitals/I&O/Wt Last Vital Signs Temp 101.6 F H 01/22/23 18:05 Pulse 91 01/22/23 19:56 Resp 17 01/22/23 17:43 BP 109/67 01/22/23 19:56 Pulse Ox 91 01/22/23 19:56 O2 Del Method Room Air 01/22/23 19:56 01/22/23 01/22/23 01/22/23 06:59 14:59 22:59 Intake Total 50 / 50 Balance 50 / 50 Weight last 48 hrs Weight 86.183 kg Physical Exam Narrative: Accompanied by his . Const: COMMON NORMALS: patient oriented x3 and alert GENERAL APPEARANCE: co operative ORIENTATION/CONSCIOUSNESS: Yes awake HENMT: COMMON NORMALS: oropharynx normal Neck/C-Spine: COMMON NORMALS: no JVD Chest: OTHER: Port Resp: AUSCULTATION: rhonchi right lower and wheezes right lower Cardio: COMMON NORMALS: no JVD, regular rhythm, S1 normal heart sound present, S2 normal heart sound present and No murmurs present (Cardio) RHYTHM: regular rhythm HEART SOUNDS: S1 normal heart sound present and S2 normal heart sound present GI: COMMON NORMALS: Normal to inspection, nondistended, normoactive bowel sounds present, Soft to palpation and non-tender PALPATION: Yes Soft to palpation Extremity: COMMON NORMALS: no joint enlargement and no pedal edema Neuro: COMMON NORMALS: patient oriented x3 and moves all extremities SENSORIUM/ORIENTATION: Yes alert Skin: COMMON NORMALS: no rashes or lesions noted GENERAL SKIN EXAM: no rashes or lesions noted Data 01/22/23 18:15 01/22/23 18:15 Micro: Microbiology 01/22/23 18:15 Blood Culture - Preliminary Blood SPECIMEN COLLECTED 01/22/23 18:15 Blood Culture - Preliminary Blood SPECIMEN COLLECTED A&P Assessment and plan (1) Fever and neutropenia: Neutropenic fever, suspected secondary to pneumonia. Noted neutropenia with 1100 ANC. Collect blood cultures. Sputum cultures if able to provide. UA has been collected as well, pending. Follow-up. We will obtain respiratory viral panel. At this time treat empirically with Zosyn, vancomycin. CBC reviewed, follow-up CBC requested. ER documentation reviewed, discussed with ER physician. Oncology documentation reviewed. Obtain sputum culture, urine bacterial antigens, MRSA PCR, respiratory viral panel. Follow-up blood culture. Continue Zosyn, vancomycin. At risk of kidney injury with antibiotic treatment, creatinine at 1.1, BUN 27. Follow-up renal function. (2) Pneumonia: Right lower lobe pneumonia. In the setting of neutropenia. Metastatic small cell lung cancer, palliative care chemotherapy. History of radiation therapy. Additionally reports some oropharyngeal dysphagia, some liquid building up at the back of his throat. Possibility of aspiration pneumonia. Dysphagia diet. Mildly thick liquids. Assess with MBS (3) Dysphagia: Additionally reports some oropharyngeal dysphagia, some liquid building up at the back of his throat. Possibility of aspiration pneumonia. Dysphagia diet. Mildly thick liquids. 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 Plan Recurrent metastatic SCLC: On palliative chemo, s/p radiation. Continue follow up with oncology. AAA Chronic back pain COPD: DuoNebs CAD: Continue aspirin GERD: Continue PPI HTN: Monitor blood pressures Port-A-Cath in place Attestations Medical Necessity Statement*: Admission of over 2 midnights anticipated for assessment management of neutropenic fever, pneumonia, and a gentleman with recurrent metastatic small cell lung cancer currently on palliative chemotherapy. Diagnoses Fever and neutropenia D70.9; R50.81 Pneumonia J18.9 Dysphagia R13.10
[2023-01-22 21:02] VITALS: BP 98/62; PULSE 88; RESP 18; TEMP 36.8; O2SAT 91
--- NOTE | 2023-01-22 21:44 | PC.PHAR ---
[id number] vancomycin - pt pneumonia with cancer, standard dosing requested, dosing to reach higher end of 10-15 requested. 1250 q12h starting 0500 01-23-23 (2 hours earlier than schedule from ER dose due to increased dose) trough 01/24 before 4th dose of full dose @ 1600.
[2023-01-22 21:52] LABS: Influenza A by IFA Negative (Negative); Influenza B by IFA Negative (Negative)
[2023-01-22] MEDS: nystatin 100,000 unit/mL UDC 5 mL 400000 UNIT PO (22:29)
[2023-01-22] MEDS: enoxaparin 40 mg/0.4 mL Syringe SUBCUT (22:30)
[2023-01-22] MEDS: fluticasone nasal spray 16gm Btl 1 SPRAY INTRANASAL (22:30)
[2023-01-23] VITALS (7 sets, daily range): BP systolic 92–109; BP diastolic 57–71; PULSE 72–95; RESP 17–18; TEMP 36.4–37.2; O2SAT 90–93; BMI 29.7
[2023-01-23 00:27] LABS: Adenovirus Not Detected (NOT DETECT); Chlamydia Pneumoniae Not Detected (NOT DETECT); Coronavirus 229E,HKU1,NL63,OC4 Not Detected (NOT DETECT); Human Metapneumovirus Not Detected (NOT DETECT); Human Rhinovirus/Enterovirus Not Detected (NOT DETECT); Influenza A Not Detected (NOT DETECT); Influenza A H1 Not Detected (NOT DETECT); Influenza A H1-2009 Not Detected (NOT DETECT); Influenza A H3 Not Detected (NOT DETECT); Influenza B Not Detected (NOT DETECT); Mycoplasma Pneumoniae Not Detected (NOT DETECT); Parainfluenza Virus Type 1 Not Detected (NOT DETECT); Parainfluenza Virus Type 2 Not Detected (NOT DETECT); Parainfluenza Virus Type 3 Not Detected (NOT DETECT); Parainfluenza Virus Type 4 Not Detected (NOT DETECT); Respiratory Syncytial Virus A Not Detected (NOT DETECT); Respiratory Syncytial Virus B Not Detected (NOT DETECT); SARS-COV-2 Not Detected (NOT DETECT)
[2023-01-23] MEDS: tizanidine 4 mg Tablet 2 MG PO ×3 (01:31→21:14)
[2023-01-23] MEDS: vancomycin 1,250 MG/250 ML PIGGYBACK 250 MG IV ×2 (04:36→16:38)
--- NOTE | 2023-01-23 05:12 | PC.NURSE ---
pt stated he went voided 3x since he was admitted educated pt to use urinal
[2023-01-23] MEDS: pantoprazole DR 40 mg Tablet PO (05:30)
[2023-01-23] MEDS: aspirin 81 mg EC Tablet PO (05:30)
[2023-01-23 06:12] LABS: Hematocrit 27.7 % (37-53); Mean Corpuscular HGB Conc 32.9 g/dL (30-55); Mean Corpuscular Hemoglobin 29.8 pg (27-33); Mean Corpuscular Volume 90.8 fl (82-101); Mean Platelet Volume 11.1 fL (7.4-10.4); Platelet Count 161 10^3/cmm (157-399); Red Blood Count 3.05 10^6/uL (3.85-5.65); Red Cell Distribution Width 16.4 % (12.1-15.1); White Blood Count 3.46 10^3/uL (3.29-11.43)
[2023-01-23 06:35] LABS: Anion Gap 12.8 (5-19); Blood Urea Nitrogen 21 mg/dL (8-23); Calcium 8.9 mg/dL (8.5-10.5); Carbon Dioxide 22 mmol/L (22-29); Chloride 105 mmol/L (98-107); Creatinine Clr Calc Pharmacy 74.1332; Glomerular Filtration Rate 74.3 mL/min (90-130); Glucose 101 mg/dL (65-115); Osmolality Calculated 285 mOsm/kg (285-295); Potassium 3.8 mmol/L (3.5-5.1); Sodium 136 mmol/L (136-145)
[2023-01-23 07:10] LABS: Slide Review Slide Review Perform
[2023-01-23 07:15] LABS: Absolute Segmented Neutrophil 0.6 10/cmm (1.6-7.1); Band Neutrophils Absolute 0.6 10^3/cmm (0.0-1.2); Lymphocytes 42 %; Segmented Neutrophils 18 %; Total Cells Counted 100 (0-100)
[2023-01-23 07:16] LABS: Absolute Eosinophils 0.1 10^3/cmm (0.0-0.7); Eosinophils 3 %; Lymphocytes Absolute 1.5 10^3/cmm (1.2-3.4); Monocytes Absolute 0.7 10^3/cmm (0.1-0.6)
[2023-01-23 07:19] LABS: Absolute Neutrophil 1.2 10^3/cmm (1.4-6.5); Platelet Estimate Normal (Normal)
[2023-01-23 07:21] LABS: Anisocytosis Trace
[2023-01-23] MEDS: nystatin 100,000 unit/mL UDC 5 mL 400000 UNIT PO ×4 (08:50→21:15)
[2023-01-23] MEDS: piperacillin-tazobactam 3.375 GM in sodium chloride 0.9% (plus) 50 ML IV ×2 (08:50→16:39)
[2023-01-23 10:21] LABS: Procalcitonin 0.25 ng/mL (0-0.5)
--- NOTE | 2023-01-23 10:37 | PC.CHAP ---
Pastoral Care Encounter/Spiritual Assessment Type of Contact [] Declined collaborating supervising physician visit [] Patient/Family/Request visit [] Outpatient visit [] Follow-up visit [] Physician referral [] Code/Alert [] Routine visit [] Staff referral [] Actively dying [] Patient sleeping [] Family support [] [] Out of room [] Palliative care [] [] Receiving care in room [] Pre-surgical visit [] Trauma [] Long length of stay [] ICU visit [x I Isolation Other: Relational/Emotional Strength [] Patient feels connected with others/family/visitors/staff [] Distress [] Loneliness/isolation [] Abandonment Spirituality of Patient [] Person of [place] [] Attends Confucianism of their [place] [] Believes in Prayer [] Reads Bible or Yazidism materials [] There are Spiritual issues to be addressed Balance Weigher Interventions [] Prayer [] Active listening [] Non-anxious presence [] Spiritual/emotional support [] Crisis/trauma care [] Spiritual counseling [] Bereavement support [] Provided bereavement packet [] Provided Bible/devotional materials [] Provided toy/stuffed animal, coloring book to patient or family member [] Provided Communion [] Anointing/[place] [] Salvation [] Completed spiritual assessment [] Other: Impact on Illness or Injury [] Angry [] Fearful [] Anxious [] Often cries [] Exhaustion [] Unable to work [] Unable to attend cheondoism [] Unable to walk/stand [] Unable to read [] Unable to drive [] Unable to eat/drink [] Unable to sleep [] Unable to be with family [] Patient intubated [] Other: Summary Islation Time spent with patient
[2023-01-23] MEDS: fluticasone nasal spray 16gm Btl 1 SPRAY INTRANASAL ×2 (11:28→21:19)
[2023-01-23] MEDS: acetaminophen 325 mg Tablet 650 MG PO ×2 (11:28→21:14)
--- NOTE | 2023-01-23 16:37 | PM.PN ---
Subjective Subjective: Patient was seen this morning, he is sitting up to the side of the bed, is at bedside, denies any fevers, no chills, does have sinus congestion, mild cough, no abdominal pain, no diarrhea, no dysuria, no hematuria, no sick contacts, recent travel, his last round of chemotherapy was about a week ago, he also tells me that he got Neupogen roughly about a week ago Vitals/I&O/Wt Last Vital Signs Temp 97.5 F L 01/23/23 16:00 Pulse 75 01/23/23 16:00 Resp 18 01/23/23 16:00 BP 97/57 01/23/23 16:00 Pulse Ox 91 01/23/23 16:00 O2 Del Method Room Air 01/23/23 16:00 01/23/23 01/23/23 01/23/23 06:59 14:59 22:59 Intake Total 420 / 3425.49 530 / 530 Output Total 675 / 675 Balance 420 / 3425.49 -145 / -145 Weight last 48 hrs Weight 86.183 kg Weight 86.183 kg Physical Exam Const: COMMON NORMALS: no acute distress and patient oriented x3 Resp: COMMON NORMALS: normal respiratory effort, No retractions, No use of accessory muscles and clear to auscultation bilaterally AUSCULTATION: clear to auscultation bilaterally Cardio: COMMON NORMALS: regular rate, regular rhythm, S1 normal heart sound present and S2 normal heart sound present RATE: regular rate RHYTHM: regular rhythm HEART SOUNDS: S1 normal heart sound present and S2 normal heart sound present GI: COMMON NORMALS: Normal to inspection, nondistended, normoactive bowel sounds present and non-tender Extremity: COMMON NORMALS: no pedal edema Neuro: COMMON NORMALS: patient oriented x3 Psych: COMMON NORMALS: mental status grossly normal Data 01/23/23 05:30 01/23/23 05:30 Micro: Microbiology 01/22/23 21:20 Legionella Urinary Antigen - Final Urine,Voided Bacterial Antigens - Final 01/22/23 18:15 Blood Culture - Preliminary Blood SPECIMEN COLLECTED 01/22/23 18:15 Blood Culture - Preliminary Blood SPECIMEN COLLECTED A&P Assessment and plan (1) Fever and neutropenia: Neutropenic fever, suspected secondary to pneumonia, possible acute sinusitis, ? Follow sputum cultures, ?, Follow stool cultures, ?, Follow C. difficile, ?, Continue vancomycin, ? Continue Zosyn, ? Continue follow fever trend, - continue to clinically monitor, (2) Pneumonia: Right lower lobe pneumonia. In the setting of neutropenia. Metastatic small cell lung cancer, palliative care chemotherapy. History of radiation therapy. Additionally reports some oropharyngeal dysphagia, some liquid building up at the back of his throat. Possibility of aspiration pneumonia. Dysphagia diet. Mildly thick liquids. Assess with MBS (3) Dysphagia: Additionally reports some oropharyngeal dysphagia, some liquid building up at the back of his throat. Possibility of aspiration pneumonia. Dysphagia diet. Mildly thick liquids. 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 (4) Immunocompromised patient: (5) Chemotherapy induced neutropenia: Plan Recurrent metastatic SCLC: On palliative chemo, s/p radiation. Continue follow up with oncology. AAA Chronic back pain COPD: DuoNebs CAD: Continue aspirin GERD: Continue PPI HTN: Monitor blood pressures Port-A-Cath in place, Plan for today is to continue antibiotic therapy, follow cultures, DVT prophylaxis Lovenox, full code, follow-up modified barium swallow Attestations Medical Necessity Statement*: Patient requires hospitalization for pneumonia, febrile COVID neutropenia Related to chemotherapy Diagnoses Fever and neutropenia D70.9; R50.81 Pneumonia J18.9 Dysphagia R13.10 Immunocompromised patient D84.9 Chemotherapy induced neutropenia D70.1; T45.1X5A
[2023-01-23] MEDS: predniSONE 20 mg Tablet 40 MG PO (17:05)
--- NOTE | 2023-01-23 20:43 | FL_ITS ---
WS: [id number] Modified barium swallow, 01/23/2023 Clinical Data: Oropharyngeal dysphagia Comparison: None. Fluoroscopy time: 1min [id number] # of spot films: Findings: The patient initiated swallowing but there was premature spill and which did clear on further swallow ing. There is penetration with liquids but not solid foods. No aspiration occurred. There was minimal residual in the hypopharynx which did clear. The patient swallowed the barium tablet without hesitat ion and it advanced rapidly into the stomach. Impression: 1. Minimal premature spillage. 2. Mild penetration with liquids but not solid foods. 3. No aspiration.
[2023-01-23] MEDS: enoxaparin 40 mg/0.4 mL Syringe SUBCUT (21:15)
[2023-01-24] MEDS: piperacillin-tazobactam 3.375 GM in sodium chloride 0.9% (plus) 50 ML IV ×4 (00:39→23:20)
[2023-01-24 04:22] VITALS: BP 98/60; PULSE 76; RESP 18; TEMP 36.4; O2SAT 91
[2023-01-24] MEDS: vancomycin 1,250 MG/250 ML PIGGYBACK 250 MG IV ×2 (05:07→16:51)
[2023-01-24] MEDS: aspirin 81 mg EC Tablet PO (05:08)
[2023-01-24] MEDS: pantoprazole DR 40 mg Tablet PO (05:08)
[2023-01-24 06:52] LABS: Hematocrit 29.6 % (37-53); Mean Corpuscular HGB Conc 31.8 g/dL (30-55); Mean Corpuscular Hemoglobin 29.7 pg (27-33); Mean Corpuscular Volume 93.7 fl (82-101); Mean Platelet Volume 11.1 fL (7.4-10.4); Platelet Count 188 10^3/cmm (157-399); Red Blood Count 3.16 10^6/uL (3.85-5.65); Red Cell Distribution Width 16.3 % (12.1-15.1); White Blood Count 12.66 10^3/uL (3.29-11.43)
[2023-01-24 07:19] LABS: Anion Gap 18.1 (5-19); Blood Urea Nitrogen 18 mg/dL (8-23); Calcium 9.1 mg/dL (8.5-10.5); Carbon Dioxide 18 mmol/L (22-29); Chloride 106 mmol/L (98-107); Glomerular Filtration Rate 66.6 mL/min (90-130); Glucose 117 mg/dL (65-115); Osmolality Calculated 289 mOsm/kg (285-295); Potassium 4.1 mmol/L (3.5-5.1); Sodium 138 mmol/L (136-145)
[2023-01-24 08:00] VITALS: BP 104/64; PULSE 76; RESP 17; TEMP 36.4; O2SAT 92
[2023-01-24] MEDS: nystatin 100,000 unit/mL UDC 5 mL 400000 UNIT PO ×4 (08:38→19:44)
[2023-01-24 08:41] LABS: Slide Review Slide Review Perform
[2023-01-24 08:43] LABS: Absolute Neutrophil 9.5 10^3/cmm (1.4-6.5); Absolute Segmented Neutrophil 5.2 10/cmm (1.6-7.1); Anisocytosis Trace; Band Neutrophils Absolute 4.3 10^3/cmm (0.0-1.2); Eosinophils 0 %; Lymphocytes 8 %; Platelet Estimate Normal (Normal); Segmented Neutrophils 41 %; Total Cells Counted 100 (0-100)
[2023-01-24] MEDS: fluticasone nasal spray 16gm Btl 1 SPRAY INTRANASAL ×2 (11:44→19:44)
[2023-01-24] MEDS: tizanidine 4 mg Tablet 2 MG PO ×2 (11:45→21:24)
[2023-01-24] MEDS: acetaminophen 325 mg Tablet 650 MG PO ×2 (11:46→21:24)
--- NOTE | 2023-01-24 11:54 | PC.SOCIAL ---
Pg 2 IMM Explained to pt Pg 2 IMM. No questions voiced. Provided pt a copy. Initialed, dated, & timed a copy & placed in chart.
[2023-01-24 12:00] VITALS: BP 108/69; PULSE 75; RESP 17; TEMP 36.4; O2SAT 94
--- NOTE | 2023-01-24 15:49 | P.PN_ITS ---
Vitals/I&O/Wt Last Vital Signs Temp 97.6 F 01/24/23 12:00 Pulse 75 01/24/23 12:00 Resp 17 01/24/23 12:00 BP 108/69 01/24/23 12:00 Pulse Ox 94 01/24/23 12:00 O2 Del Method Room Air 01/23/23 16:00 01/24/23 01/24/23 01/24/23 06:59 14:59 22:59 Intake Total 780 / 2330.000 390 / 390 Output Total 1300 / 2575 275 / 275 Balance -520 / -245.000 115 / 115 Weight last 48 hrs Weight 86.183 kg Weight 86.183 kg Weight 86.183 kg Physical Exam Const: COMMON NORMALS: no acute distress and patient oriented x3 Resp: COMMON NORMALS: normal respiratory effort, No retractions, No use of accessory muscles and clear to auscultation bilaterally AUSCULTATION: clear to auscultation bilaterally Cardio: COMMON NORMALS: regular rate, regular rhythm, S1 normal heart sound present and S2 normal heart sound present RATE: regular rate RHYTHM: re gular rhythm HEART SOUNDS: S1 normal heart sound present and S2 normal heart sound present GI: COMMON NORMALS: Normal to inspection, nondistended, normoactive bowel sounds present and non-tender Extremity: COMMON NORMALS: no pedal edema Neuro: COMMON NORMALS: patient oriented x3 Psych: COMMON NORMALS: mental status grossly normal Data 01/24/23 06:10 01/24/23 06:10 Micro: Microbiology 01/22/23 18:15 Blood Culture - Preliminary Blood NEGATIVE TO DATE 01/22/23 18:15 Blood Culture - Preliminary Blood NEGATIVE TO DATE 01/22/23 21:20 Legionella Urinary Antigen - Final Urine,Voided Bacterial Antigens - Final A&P Assessment and plan (1) Fever and neutropenia: Neutropenic fever, suspected secondary to pneumonia, possible acute sinusitis, ? Follow sputum cultures, ?, Follow stool cultures, ?, Follow C. difficile, ?, Continue vancomycin, ? Continue Zosyn, ? Continue follow fever trend, - continue to clinically monitor, (2) Pneumonia: Right lower lobe pneumonia. In the setting of neutropenia. Metastatic small cell lung cancer, palliative care chemotherapy. History of radiation therapy. Additionally reports some oropharyngeal dysphagia, some liquid building up at the back of his throat. Possibility of aspiration pneumonia. Dysphagia diet. Mildly thick liquids. Assess with MBS (3) Dysphagia: Additionally reports some oropharyngeal dysphagia, some liquid building up at the back of his throat. Possibility of aspiration pneumonia. Dysphagia diet. Mildly thick liquids. 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 (4) Immunocompromised patient: (5) Chemotherapy induced neutropenia: Plan Recurrent metastatic SCLC: On palliative chemo, s/p radiation. Continue follow up with oncology. AAA Chronic back pain COPD: DuoNebs CAD: Continue aspirin GERD: Continue PPI HTN: Monitor blood pressures Port-A-Cath in place, Plan for today is to continue antibiotic therapy, follow cultures, DVT prophylaxis Lovenox, full code, follow-up modified barium swallow Attestations Medical Necessity Statement*: Patient requires hospitalization for chemotherapy-induced neutropenia with fevers, Diagnoses Fever and neutropenia D70.9; R50.81 Pneumonia J18.9 Dysphagia R13.10 Immunocompromised patient D84.9 Chemotherapy induced neutropenia D70.1; T45.1X5A
[2023-01-24 16:00] VITALS: BP 97/65; PULSE 78; TEMP 36.4; O2SAT 94
[2023-01-24 16:35] LABS: Vancomycin Trough 15.4 ug/mL (10-15)
[2023-01-24] MEDS: enoxaparin 40 mg/0.4 mL Syringe SUBCUT (19:44)
[2023-01-24 20:11] VITALS: BP 112/74; PULSE 78; RESP 18; TEMP 36.4; O2SAT 94
[2023-01-25 00:27] VITALS: BP 91/55; PULSE 62; RESP 16; TEMP 36.4; O2SAT 93
[2023-01-25 04:56] VITALS: BP 94/57; PULSE 72; RESP 18; TEMP 36.4; O2SAT 92
[2023-01-25 05:09] VITALS: BMI 29.7
[2023-01-25] MEDS: vancomycin 1,250 MG/250 ML PIGGYBACK 250 MG IV (05:12)
[2023-01-25] MEDS: pantoprazole DR 40 mg Tablet PO (05:12)
[2023-01-25] MEDS: aspirin 81 mg EC Tablet PO (05:12)
[2023-01-25 05:30] LABS: Basophils % 0.2 %; Eosinophils # 0.1 10^3/uL (0.0-0.8); Eosinophils % 0.5 %; Hematocrit 30.1 % (37-53); Lymphocytes # 1.4 10^3/uL (0.8-4.8); Lymphocytes % 6.9 %; Mean Corpuscular HGB Conc 32.2 g/dL (30-55); Mean Corpuscular Hemoglobin 29.6 pg (27-33); Mean Corpuscular Volume 91.8 fl (82-101); Monocytes # 2.8 10^3/uL (0.2-0.9); Monocytes % 14.2 %; Neutrophils # 13.58 10^3/uL (1.8-7.7); Neutrophils % 68.4 %; Nucleated Red Blood Cells # 0.1 /100WBC; Nucleated Red Blood Cells % 0.3 %; Platelet Count 252 10^3/cmm (157-399); Red Blood Count 3.28 10^6/uL (3.85-5.65); Red Cell Distribution Width 16.6 % (12.1-15.1); White Blood Count 19.85 10^3/uL (3.29-11.43)
[2023-01-25 05:58] LABS: Anion Gap 16.1 (5-19); Blood Urea Nitrogen 17 mg/dL (8-23); Calcium 9.3 mg/dL (8.5-10.5); Carbon Dioxide 21 mmol/L (22-29); Chloride 109 mmol/L (98-107); Glomerular Filtration Rate 60.2 mL/min (90-130); Glucose 87 mg/dL (65-115); Osmolality Calculated 295 mOsm/kg (285-295); Potassium 4.1 mmol/L (3.5-5.1); Sodium 142 mmol/L (136-145)
[2023-01-25 06:30] LABS: Slide Review Slide Review Perform
[2023-01-25 08:00] VITALS: BP 119/76; PULSE 66; RESP 17; TEMP 36.9; O2SAT 94
[2023-01-25] MEDS: nystatin 100,000 unit/mL UDC 5 mL 400000 UNIT PO (08:56)
[2023-01-25] MEDS: piperacillin-tazobactam 3.375 GM in sodium chloride 0.9% (plus) 50 ML IV (09:00)
--- NOTE | 2023-01-25 10:31 | PM.DCS ---
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 At the end of December had a course of treatment with Levaquin.? Comes into the hospital due to worsening dyspnea particularly this morning, states he was panting for air, as well as fever up to 104.? Yesterday his neutrophils were 650. This is a 67-year-old male, who presents [facility] for fevers, febrile neutropenia, likely secondary to pneumonia, right lower lobe, patient was monitored as inpatient, received broad-spectrum antibiotic therapy, blood cultures so far negative for the 8 hours, remains afebrile, clinically improving, ambulating without significant symptomatology, no fevers, no chills, no cough, no abdominal pain, no diarrhea, no dysuria, patient will be discharged home with 5 remaining days of Levaquin, continue to hydrate well, facemask, hand wash, if any recurrent fevers go to the emergency room, follow-up with oncology next week, for his dysphagia, follow dysphagia diet, 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, Physical Exam Const: COMMON NORMALS: no acute distress and patient oriented x3 Resp: COMMON NORMALS: normal respiratory effort, No retractions, No use of accessory muscles and clear to auscultation bilaterally AUSCULTATION: clear to auscultation bilaterally Cardio: COMMON NORMALS: regular rate, regular rhythm, S1 normal heart sound present and S2 normal heart sound present RATE: regular rate RHYTHM: regular rhythm HEART SOUNDS: S1 normal heart sound present and S2 normal heart sound present GI: COMMON NORMALS: Normal to inspection, nondistended, normoactive bowel sounds present and non-tender Extremity: COMMON NORMALS: no pedal edema Neuro: COMMON NORMALS: patient oriented x3 Psych: COMMON NORMALS: mental status grossly normal Discharge Data Studies Completed and Pending Completed Studies During Hospitalization Category Date Time Status FL barium swallow modifd 03106 Routine Exams 01/23/23 20:43 Completed XR chest 1V portable [id number] Stat Exams 01/22/23 17:18 Completed Pending at discharge Category Date Time Status Blood Culture Stat Lab 01/22/23 18:15 Results Clostridium Difficile PCR Routine Lab 01/23/23 08:54 Received MRSA [Methicillin Resistant S.aureu] Routine Lab 01/22/23 20:43 Ordered OVA and Parasites, Conc and PE Routine Lab 01/25/23 07:12 Received Salmonella / Shigella / Campy Routine Lab 01/23/23 08:54 Received Sputum Culture and Gram Stain Routine Lab 01/23/23 22:14 Received Radiology Impressions Chest X-Ray 01/22/23 17:18 IMPRESSION: Nodular type opacity medial lower right lung below the right hilum, along with patchy interstitial type infiltrate within both lower lungs. Findings worrisome for mass appearance inferior to the right hilum within the medial lower right lung, with suggestion of interval worsened appearance from prior CT chest. Patchy interstitial infiltrate within both lower lungs more suggestive of pneumonia appearance. Follow-up suggested. Laboratory Results WBC 19.85 10^3/uL (3.29-11.43) H 01/25/23 05:15 RBC 3.28 10^6/uL (3.85-5.65) L 01/25/23 05:15 Hgb 9.70 g/dL (11.27-16.99) L 01/25/23 05:15 Hct 30.1 % (37-53) L 01/25/23 05:15 MCV 91.8 fl (82-101) 01/25/23 05:15 MCH 29.6 pg (27-33) 01/25/23 05:15 MCHC 32.2 g/dL (30-55) 01/25/23 05:15 RDW 16.6 % (12.1-15.1) H 01/25/23 05:15 Plt Count 252 10^3/cmm (157-399) D 01/25/23 05:15 MPV 11.0 fL (7.4-10.4) H 01/25/23 05:15 Neut % (Auto) 68.4 % 01/25/23 05:15 Lymph % (Auto) 6.9 % 01/25/23 05:15 [place] % (Auto) 14.2 % 01/25/23 05:15 Eos % (Auto) 0.5 % 01/25/23 05:15 Baso % (Auto) 0.2 % 01/25/23 05:15 Neut # (Auto) 13.58 10^3/uL (1.8-7.7) H 01/25/23 05:15 Lymph # (Auto) 1.4 10^3/uL (0.8-4.8) 01/25/23 05:15 [place] # (Auto) 2.8 10^3/uL (0.2-0.9) H 01/25/23 05:15 Eos # (Auto) 0.1 10^3/uL (0.0-0.8) 01/25/23 05:15 Baso # (Auto) 0.0 10^3/uL (0.0-0.1) 01/25/23 05:15 Nucleated RBC % (auto) 0.3 % 01/25/23 05:15 Total Counted 100 (0-100) 01/24/23 06:10 Atypical Lymphs % 0.0 % (0-5) 01/24/23 06:10 Absolute Neutrophils 9.5 10^3/cmm (1.4-6.5) H 01/24/23 06:10 Segmented Neutrophils 41 % 01/24/23 06:10 Abs Segm Neuts (Man) 5.2 10/cmm (1.6-7.1) 01/24/23 06:10 Band Neutrophils 34.0 % 01/24/23 06:10 Abs Band Neuts (Man) 4.3 10^3/cmm (0.0-1.2) H 01/24/23 06:10 Absolute Lymphocytes 1.0 10^3/cmm (1.2-3.4) L 01/24/23 06:10 Lymphocytes (Manual) 8 % 01/24/23 06:10 Monocytes (Manual) 16.0 % 01/24/23 06:10 Absolute Monocytes 2.0 10^3/cmm (0.1-0.6) H 01/24/23 06:10 Eosinophils (Manual) 0 % 01/24/23 06:10 Absolute Eosinophils 0.0 10^3/cmm (0.0-0.7) 01/24/23 06:10 Basophils (Manual) 0.0 % 01/24/23 06:10 Absolute Basophils 0.0 10^3/cmm (0.0-0.2) 01/24/23 06:10 Metamyelocytes 1.0 % 01/24/23 06:10 Myelocytes 0.0 % 01/23/23 05:30 Nucleated RBCs # 0.1 /100WBC 01/25/23 05:15 Platelet Estimate Normal (Normal) 01/24/23 06:10 Anisocytosis Trace 01/24/23 06:10 PT 14.40 SECONDS (12.1-14.9) 01/22/23 18:15 INR 1.09 (0.8-1.2) 01/22/23 18:15 Sodium 142 mmol/L (136-145) 01/25/23 05:15 Potassium 4.1 mmol/L (3.5-5.1) 01/25/23 05:15 Chloride 109 mmol/L (98-107) H 01/25/23 05:15 Carbon Dioxide 21 mmol/L (22-29) L 01/25/23 05:15 Anion Gap 16.1 (5-19) 01/25/23 05:15 BUN 17 mg/dL (8-23) 01/25/23 05:15 Creatinine 1.2 mg/dL (0.7-1.2) 01/25/23 05:15 GFR Calculation 60.2 mL/min (90-130) L 01/25/23 05:15 Glucose 87 mg/dL (65-115) 01/25/23 05:15 Calculated Osmolality 295 mOsm/kg (285-295) 01/25/23 05:15 Lactic Acid 1.9 mmol/L (0.5-2.2) 01/22/23 18:15 Calcium 9.3 mg/dL (8.5-10.5) 01/25/23 05:15 Total Bilirubin 0.4 mg/dL (0.15-1.2) 01/22/23 18:15 AST 17 U/L (0-40) 01/22/23 18:15 ALT 10 U/L (0-41) 01/22/23 18:15 Alkaline Phosphatase 108 U/L (40-130) 01/22/23 18:15 Total Protein 6.3 g/dL (6.6-8.7) L 01/22/23 18:15 Albumin 3.9 g/dL (3.5-5.2) 01/22/23 18:15 Globulin 2.4 g/dL (1.3-4.6) 01/22/23 18:15 Procalcitonin 0.25 ng/mL (0-0.5) 01/23/23 05:30 Urine Color Yellow (Yellow) 01/22/23 19:15 Urine Appearance Clear (CLEAR) 01/22/23 19:15 Urine pH 5 (5-7) 01/22/23 19:15 Ur Specific [place] 1.020 (1.005-1.030) 01/22/23 19:15 Urine Protein Neg (Negative) 01/22/23 19:15 Urine Glucose (UA) Norm (Normal) 01/22/23 19:15 Urine Ketones 1+ (Negative) H 01/22/23 19:15 Urine Blood Neg (Negative) 01/22/23 19:15 Urine Nitrate Negative (Negative) 01/22/23 19:15 Urine Bilirubin Neg (Negative) 01/22/23 19:15 Urine Urobilinogen Norm mg/dL (Negative) 01/22/23 19:15 Ur Leukocyte Esterase Negative (Negative) 01/22/23 19:15 Nasal Influ A H1 2008 PCR Not detected (NOT DETECT) 01/22/23 22:35 Vancomycin Trough 15.4 ug/mL (10-15) H 01/24/23 16:08 Adenovirus (PCR) Not detected (NOT DETECT) 01/22/23 22:35 C. pneumoniae DNA (PCR) Not detected (NOT DETECT) 01/22/23 22:35 Coronavirus 229E (PCR) Not detected (NOT DETECT) 01/22/23 22:35 Human Metapneumovir PCR Not detected (NOT DETECT) 01/22/23 22:35 Influenza A (H1) PCR Not detected (NOT DETECT) 01/22/23 22:35 Influenza A (H3) PCR Not detected (NOT DETECT) 01/22/23 22:35 Influenza Type A Ag Negative (Negative) 01/22/23 18:12 Influenza Type A (PCR) Not detected (NOT DETECT) 01/22/23 22:35 Influenza Type B Ag Negative (Negative) 01/22/23 18:12 Influenza Type B (PCR) Not detected (NOT DETECT) 01/22/23 22:35 M. pneumoniae (PCR) Not detected (NOT DETECT) 01/22/23 22:35 Parainfluenza 1 (PCR) Not detected (NOT DETECT) 01/22/23 22:35 Parainfluenza 2 (PCR) Not detected (NOT DETECT) 01/22/23 22:35 Parainfluenza 3 (PCR) Not detected (NOT DETECT) 01/22/23 22:35 Parainfluenza 4 (PCR) Not detected (NOT DETECT) 01/22/23 22:35 RSV Type A (PCR) Not detected (NOT DETECT) 01/22/23 22:35 RSV Type B (PCR) Not detected (NOT DETECT) 01/22/23 22:35 Entero/Rhino (PCR) Not detected (NOT DETECT) 01/22/23 22:35 SARS-CoV-2 (PCR) Not detected (NOT DETECT) 01/22/23 22:35 SARS-CoV-2 Ag (Rapid) negative (Negative) 01/22/23 18:12 Vitals Last Vital Signs Temp 98.4 F 01/25/23 08:00 Pulse 66 01/25/23 08:00 Resp 17 01/25/23 08:00 BP 119/76 01/25/23 08:00 Pulse Ox 94 01/25/23 08:00 O2 Del Method Room Air 01/24/23 16:00 Discharge Plan Discharge Patient Disposition: Home Condition: Stable Prescriptions: New levofloxacin 750 mg tablet 750 mg PO DAILY 5 Days Qty: 5 0RF Continued Nitrostat 0.4 mg tablet, sublingual 0.4 mg SUBLINGUAL Q5M PRN (Reason: Chest Pain) Qty: 25 0RF Rx Instructions: do not exceed 3 doses per episode tizanidine 2 mg tablet 2 mg PO Q8H PRN (Reason: muscle spasticity) Qty: 30 1RF ibuprofen 200 mg capsule 200 mg PO Q6H PRN (Reason: Pain) acetaminophen [Pain Relief (acetaminophen)] 650 mg tablet extended release 650 mg PO Q8H Robitussin Cough-Chest Nate DM 5-100 mg/5 mL liquid 10 ml PO Q6H PRN (Reason: Cough) aspirin 81 mg tablet,delayed release (DR/EC) 81 mg PO QAM ferrous sulfate 325 mg (65 mg iron) tablet 325 mg PO DAILY cholecalciferol (vitamin D3) 125 mcg (5,000 unit) capsule 125 mcg PO DAILY mecobalamin (vitamin B12) 500 mcg tablet,chewable See Rx Instructions PO DAILY Rx Instructions: 1 tablet orally daily; ascorbic acid (vitamin C) 1,000 mg capsule 1 g PO DAILY Centrum Minis Men 50 Plus [phone] mcg tablet 1 tab PO DAILY gabapentin 300 mg capsule 300 mg PO BEDTIME 30 Days Qty: 30 5RF omeprazole 20 mg capsule,delayed release(DR/EC) 20 mg PO QAM 90 Days Qty: 90 3RF fluticasone propionate 50 mcg/actuation spray,suspension 1 spray intranasal Q12H Qty: 16 11RF Rx Instructions: administer into each nostril prochlorperazine maleate [Compazine] 10 mg tablet 10 mg PO Q4H PRN (Reason: Mild Nausea) Qty: 30 3RF ondansetron HCl 4 mg tablet 4 mg PO QID PRN (Reason: Nausea/vomiting) Qty: 30 3RF lorazepam 1 mg tablet 0.5 - 1 mg PO Q6H PRN (Reason: Severe Nausea) Qty: 30 3RF Discharge Orders: Discharge Order (Routine); Ordered 01/25/23 Ordered By: Carlito Valadez Referrals: Lianet Hannah MD [Primary Care Provider] - Discharge Diet: As Directed Discharge Activity: Resume usual activity Patient Instructions: Neutropenia (DC), Opioid Safety Activity Restrictions/Additional Instructions: -Please come back to the emergency room if you have fever, cough, Discharge Attestations Time Spent in Discharge Care*: greater than 30 min Quality Metrics Clinical Quality Measures [ No reported AMI, CVA or VTE this stay] Coding Level of Care Code 97651 Total time (in minutes) for Discharge: 45 Diagnoses Fever and neutropenia D70.9; R50.81 Pneumonia J18.9 Dysphagia R13.10 Immunocompromised patient D84.9 Chemotherapy induced neutropenia D70.1; T45.1X5A
[2023-01-25 12:00] VITALS: BP 116/72; PULSE 76; RESP 17; TEMP 36.4; O2SAT 92
[2023-01-25 14:02] VITALS: BP 116/72; PULSE 76; RESP 17; TEMP 36.4; O2SAT 92
[2023-01-27 13:39] LABS: Methicillin-Resist S.aureu PCR NOT DETECTED (NOT DETECTED)
== END 2023-01-25 12:55 | disposition home or self-care (01) | DRG 808 ==
LOC: ER 19:16 → MEDSURG 19:39
PROVIDERS: Admitting Provider Internal Medicine; Emergency Provider Emergency Medicine; PCP Family Medicine; Visit Provider Family Medicine
DX: D70.1 Agranulocytosis secondary to cancer chemotherapy (principal); J18.9 Pneumonia, unspecified organism; C34.2 Malignant neoplasm of middle lobe, bronchus or lung; C78.89 Secondary malignant neoplasm of other digestive organs; C79.71 Secondary malignant neoplasm of right adrenal gland; D84.821 Immunodeficiency due to drugs; Z79.60 Long term (current) use of unspecified immunomodulators and immunosuppressants; Z11.52 Encounter for screening for COVID-19; G89.29 Other chronic pain; M54.9 Dorsalgia, unspecified; J44.9 Chronic obstructive pulmonary disease, unspecified; I25.10 Atherosclerotic heart disease of native coronary artery without angina pectoris; Z95.5 Presence of coronary angioplasty implant and graft; K21.9 Gastro-esophageal reflux disease without esophagitis; I10 Essential (primary) hypertension; I25.2 Old myocardial infarction; Z95.828 Presence of other vascular implants and grafts; Z87.891 Personal history of nicotine dependence; T45.1X5A Adverse effect of antineoplastic and immunosuppressive drugs, initial encounter; R13.12 Dysphagia, oropharyngeal phase; K22.2 Esophageal obstruction; W88.1XXS Exposure to radioactive isotopes, sequela; J01.90 Acute sinusitis, unspecified; Z79.82 Long term (current) use of aspirin
CPT/HCPCS: 36415; 71045; 74230; 80048; 80053; 80202; 81003; 83605; 84145; 85007; 85018; 85025; 85610; 86403; 87040; 87045; 87070; 87177; 87205; 87209; 87426; 87427; 87449; 87486; 87493; 87581; 87633; 87641; 87804; 92611; 93005; 94640; 96372; 99214; J1642; J1650; J2543; J3370; J7030; J7050; J7512; Q5108

== ENCOUNTER 2023-02-04 09:15 | Oncology outpatient (recurring) (ONCR) | payer MEDICARE, SELFPAY ==
[2023-01-21 09:59] VITALS: BP 109/73; PULSE 87; RESP 16; TEMP 36.4; O2SAT 93
[2023-01-21 10:25] LABS: Basophils % 0.5 %; Eosinophils # 0.1 10^3/uL (0.0-0.8); Eosinophils % 3.3 %; Hematocrit 34.4 % (37-53); Lymphocytes # 0.9 10^3/uL (0.8-4.8); Lymphocytes % 42.1 %; Mean Corpuscular HGB Conc 33.4 g/dL (30-55); Mean Corpuscular Hemoglobin 30.2 pg (27-33); Mean Corpuscular Volume 90.3 fl (82-101); Mean Platelet Volume 10.6 fL (7.4-10.4); Monocytes # 0.5 10^3/uL (0.2-0.9); Monocytes % 24.8 %; Neutrophils % 28.8 %; Nucleated Red Blood Cells % 0 %; Platelet Count 168 10^3/cmm (157-399); Red Blood Count 3.81 10^6/uL (3.85-5.65); Red Cell Distribution Width 15.8 % (12.1-15.1); White Blood Count 2.14 10^3/uL (3.29-11.43)
[2023-01-21 10:46] LABS: Alanine Aminotransferase 15 U/L (0-41); Albumin Level 4.5 g/dL (3.5-5.2); Alkaline Phosphatase 116 U/L (40-130); Anion Gap 13.6 (5-19); Aspartate Amino Transferase 18 U/L (0-40); Blood Urea Nitrogen 31 mg/dL (8-23); Calcium 9.9 mg/dL (8.5-10.5); Carbon Dioxide 27 mmol/L (22-29); Chloride 101 mmol/L (98-107); Globulin 2.5 g/dL (1.3-4.6); Glomerular Filtration Rate 74.3 mL/min (90-130); Glucose 96 mg/dL (65-115); Osmolality Calculated 290 mOsm/kg (285-295); Potassium 4.6 mmol/L (3.5-5.1); Sodium 137 mmol/L (136-145); Total Bilirubin 0.4 mg/dL (0.15-1.2)
[2023-01-21 11:39] LABS: Neutrophils # 0.62 10^3/uL (1.8-7.7)
[2023-01-21 11:42] LABS: Slide Review Slide Review Perform
[2023-01-21 12:17] VITALS: BP 104/69; PULSE 84; RESP 18; TEMP 36.8; O2SAT 98
[2023-02-04 09:08] VITALS: BP 100/68; PULSE 76; RESP 16; TEMP 36.8; O2SAT 97
[2023-02-04 09:39] LABS: Basophils # 0.1 10^3/uL (0.0-0.1); Eosinophils # 0.1 10^3/uL (0.0-0.8); Eosinophils % 0.5 %; Hematocrit 34.1 % (37-53); Lymphocytes # 1.2 10^3/uL (0.8-4.8); Lymphocytes % 12.6 %; Mean Corpuscular HGB Conc 33.1 g/dL (30-55); Mean Corpuscular Volume 90.5 fl (82-101); Mean Platelet Volume 9.9 fL (7.4-10.4); Monocytes # 1.1 10^3/uL (0.2-0.9); Monocytes % 11.7 %; Neutrophils # 6.88 10^3/uL (1.8-7.7); Neutrophils % 73.9 %; Nucleated Red Blood Cells % 0 %; Platelet Count 328 10^3/cmm (157-399); Red Blood Count 3.77 10^6/uL (3.85-5.65); Red Cell Distribution Width 16.4 % (12.1-15.1); White Blood Count 9.31 10^3/uL (3.29-11.43)
[2023-02-04 09:51] LABS: Alanine Aminotransferase 10 U/L (0-41); Albumin Level 4.1 g/dL (3.5-5.2); Alkaline Phosphatase 132 U/L (40-130); Aspartate Amino Transferase 15 U/L (0-40); Blood Urea Nitrogen 28 mg/dL (8-23); Carbon Dioxide 26 mmol/L (22-29); Chloride 103 mmol/L (98-107); Globulin 3.2 g/dL (1.3-4.6); Glomerular Filtration Rate 74.3 mL/min (90-130); Glucose 92 mg/dL (65-115); Osmolality Calculated 293 mOsm/kg (285-295); Sodium 139 mmol/L (136-145); Total Bilirubin 0.5 mg/dL (0.15-1.2); Total Protein 7.3 g/dL (6.6-8.7)
[2023-02-04] MEDS: alteplase 1 mg/mL SDV 2 mL 2 MG INTRACATH (12:20)
[2023-02-04] MEDS: sodium chloride 0.9% 250 ML 75 ML IV (12:52)
[2023-02-04] MEDS: palonosetron 0.25 mg/5 mL SDV IVP (12:52)
[2023-02-04] MEDS: pegfilgrastim 6 mg/0.6 mL Kit (onpro) SUBCUT (14:43)
[2023-02-04 14:59] VITALS: BP 106/72; PULSE 78; RESP 16; TEMP 36.3; O2SAT 98
== END 2023-02-04 23:59 | disposition home or self-care (01) ==
PROVIDERS: Nurse Practitioner Family; PCP Family Medicine; Visit Provider Internal Medicine Medical Oncology
DX: C34.2 Malignant neoplasm of middle lobe, bronchus or lung (principal); C34.90 Malignant neoplasm of unspecified part of unspecified bronchus or lung; Z87.891 Personal history of nicotine dependence; Z79.899 Other long term (current) drug therapy; Z51.11 Encounter for antineoplastic chemotherapy
CPT/HCPCS: 36415; 36593; 80053; 85025; 96372; 96377; 96413; 99214; J1100; J1642; J2469; J2506; J2997; J7050; J9223; Q5108

== ENCOUNTER 2023-02-11 12:26 | Oncology outpatient (recurring) (ONCR) | payer MEDICARE, SELFPAY ==
[2023-02-11 12:35] VITALS: BP 119/78; PULSE 88; RESP 16; TEMP 36.8; O2SAT 97
[2023-02-11 12:57] LABS: Basophils # 0.1 10^3/uL (0.0-0.1); Basophils % 0.7 %; Eosinophils # 0.1 10^3/uL (0.0-0.8); Eosinophils % 0.8 %; Hematocrit 34.4 % (37-53); Lymphocytes # 1.6 10^3/uL (0.8-4.8); Mean Corpuscular HGB Conc 32.6 g/dL (30-55); Mean Corpuscular Volume 92.2 fl (82-101); Mean Platelet Volume 10.3 fL (7.4-10.4); Monocytes # 0.9 10^3/uL (0.2-0.9); Monocytes % 8.4 %; Neutrophils # 7.97 10^3/uL (1.8-7.7); Neutrophils % 73.9 %; Nucleated Red Blood Cells % 0 %; Platelet Count 281 10^3/cmm (157-399); Red Blood Count 3.73 10^6/uL (3.85-5.65); Red Cell Distribution Width 17.1 % (12.1-15.1)
[2023-02-11 13:18] LABS: Alanine Aminotransferase 20 U/L (0-41); Albumin Level 4.4 g/dL (3.5-5.2); Alkaline Phosphatase 162 U/L (40-130); Anion Gap 16.2 (5-19); Aspartate Amino Transferase 27 U/L (0-40); Blood Urea Nitrogen 20 mg/dL (8-23); Calcium 9.4 mg/dL (8.5-10.5); Carbon Dioxide 24 mmol/L (22-29); Chloride 99 mmol/L (98-107); Globulin 3.1 g/dL (1.3-4.6); Glomerular Filtration Rate 74.3 mL/min (90-130); Glucose 91 mg/dL (65-115); Osmolality Calculated 282 mOsm/kg (285-295); Potassium 4.2 mmol/L (3.5-5.1); Sodium 135 mmol/L (136-145); Total Bilirubin 0.6 mg/dL (0.15-1.2); Total Protein 7.5 g/dL (6.6-8.7)
[2023-02-11 13:56] LABS: Slide Review Slide Review Perform
== END 2023-02-13 23:59 | disposition home or self-care (01) ==
PROVIDERS: Nurse Practitioner Family; PCP Family Medicine; Visit Provider Internal Medicine Medical Oncology
DX: C34.90 Malignant neoplasm of unspecified part of unspecified bronchus or lung
CPT/HCPCS: 36591; 80053; 85025; J1642

== ENCOUNTER 2023-02-25 09:25 | Outpatient (CLI) | payer MEDICARE, SELFPAY ==
--- NOTE | 2023-02-25 10:30 | CT_ITS ---
WS: [id number] CT CHEST, ABDOMEN, AND PELVIS TECHNIQUE: Contrast-enhanced CT of the chest, abdomen, and pelvis with coronal and sagittal reformatt ed images. CLINICAL INFORMATION: restaging COMPARISON: PET/CT 11/30/[address] chest 11/01/2022 DLP: 975.[address] scans at [facility] use at least one of these dose optimization techniques: automated e xposure control; mA and/or kV adjustment per patient size (includes targeted exams where dose is matc hed to clinical indication); or iterative reconstruction. CT CHEST: Again seen is the RIGHT hilar and suprahilar masslike density measuring approximately 1.8 x 1.7 cm al constantine the RIGHT trachea. This is similar in appearance to the recent examinations. RIGHT mainstem bronc hus remains patent. Similar-appearing fibrotic infiltrates in the RIGHT upper and lower lobes some of which may be due to postobstructive pneumonia. This is not significantly changed compared to 11/02/[address] Tiny RIGHT pleural effusion. A few patchy opacities in the LEFT lower lobe are similar i n appearance. Normal caliber thoracic aorta. Aortic calcification. Coronary calcification. No axillar y lymphadenopathy. Hypertrophic changes thoracic spine. CT ABDOMEN AND PELVIS: Diffuse fatty filtration of the liver. Normal portal vein and splenic vein. Normal GE junction. Suspe cted RIGHT adrenal metastasis is stable to decreased in size since the prior PET/CT. Previously descr ibed FDG avid peripancreatic lymph node appears to have decreased in size today. Normal renal parench ymal enhancement. No hydronephrosis. A few tiny incidental renal cysts. Normal caliber upper abdomina l aorta. Aortic endograft is stable in appearance compared to the recent studies. Excluded aneurysm s ac measures 4.4 x 4.8 cm. Biiliac extension. Markedly enlarged prostate with heterogeneous enhancement. Recommend correlation PSA. Prostate measur es 5.2 cm with evidence of bladder outlet obstruction. Grade 1 anterolisthesis L4 on L5. Sigmoid dive rticulosis. No visualized adenopathy in the abdomen or pelvis. IMPRESSION: 1. No evidence of progressed disease in the chest. Findings are similar compared to previous. 2. No evidence of progressed disease in the abdomen or pelvis. 3. Previously described RIGHT adrenal metastasis appears smaller today. 4. Previously described peripancreatic FDG avid lymph node appears to have decreased in size compare d to the prior PET/CT 5. Markedly enlarged prostate suspicious for neoplasia/hyperplasia measuring 5.2 cm with evidence o f bladder outlet obstruction. Recommend correlation PSA. 6. Tiny RIGHT pleural effusion.
[2023-02-25] MEDS: iohexol 350 mg/mL 500 mL Btl (per mL) PO (11:08)
[2023-02-25] MEDS: iohexol 350 mg/mL 500 mL Btl (per mL) IV (11:08)
== END 2023-02-25 09:26 | disposition home or self-care (01) ==
LOC: RAD 09:25
PROVIDERS: PCP Family Medicine; Visit Provider Nurse Practitioner Family
DX: C79.71 Secondary malignant neoplasm of right adrenal gland (principal); C34.90 Malignant neoplasm of unspecified part of unspecified bronchus or lung; N40.1 Benign prostatic hyperplasia with lower urinary tract symptoms; N32.0 Bladder-neck obstruction
CPT/HCPCS: 71260; 74177; Q9967

== ENCOUNTER 2023-02-26 11:00 | Oncology outpatient (recurring) (ONCR) | payer MEDICARE, SELFPAY ==
[2023-02-18 12:07] VITALS: BP 104/69; PULSE 76; RESP 16; TEMP 36.7; O2SAT 92
[2023-02-18 12:26] LABS: Basophils % 0.3 %; Eosinophils # 0.2 10^3/uL (0.0-0.8); Eosinophils % 1.6 %; Lymphocytes # 1.7 10^3/uL (0.8-4.8); Lymphocytes % 14.9 %; Mean Corpuscular HGB Conc 33.3 g/dL (30-55); Mean Corpuscular Hemoglobin 31.1 pg (27-33); Mean Corpuscular Volume 93.3 fl (82-101); Mean Platelet Volume 10.5 fL (7.4-10.4); Neutrophils % 73.8 %; Nucleated Red Blood Cells % 0 %; Platelet Count 270 10^3/cmm (157-399); Red Blood Count 3.86 10^6/uL (3.85-5.65); Red Cell Distribution Width 17.8 % (12.1-15.1); White Blood Count 11.38 10^3/uL (3.29-11.43)
[2023-02-18 12:54] LABS: Alanine Aminotransferase 11 U/L (0-41); Albumin Level 4.3 g/dL (3.5-5.2); Alkaline Phosphatase 206 U/L (40-130); Anion Gap 14.4 (5-19); Aspartate Amino Transferase 35 U/L (0-40); Blood Urea Nitrogen 20 mg/dL (8-23); Calcium 9.8 mg/dL (8.5-10.5); Carbon Dioxide 24 mmol/L (22-29); Chloride 100 mmol/L (98-107); Globulin 3.1 g/dL (1.3-4.6); Glomerular Filtration Rate 74.3 mL/min (90-130); Glucose 130 mg/dL (65-115); Osmolality Calculated 282 mOsm/kg (285-295); Potassium 4.4 mmol/L (3.5-5.1); Sodium 134 mmol/L (136-145); Total Bilirubin 0.5 mg/dL (0.15-1.2); Total Protein 7.4 g/dL (6.6-8.7)
[2023-02-25 11:26] LABS: Basophils # 0.1 10^3/uL (0.0-0.1); Basophils % 0.6 %; Eosinophils # 0.1 10^3/uL (0.0-0.8); Eosinophils % 0.9 %; Hematocrit 33.5 % (37-53); Lymphocytes # 1.4 10^3/uL (0.8-4.8); Lymphocytes % 12.8 %; Mean Corpuscular HGB Conc 33.4 g/dL (30-55); Mean Corpuscular Hemoglobin 31.5 pg (27-33); Mean Corpuscular Volume 94.4 fl (82-101); Mean Platelet Volume 10.3 fL (7.4-10.4); Monocytes # 1.3 10^3/uL (0.2-0.9); Monocytes % 11.9 %; Neutrophils # 8.17 10^3/uL (1.8-7.7); Neutrophils % 73.4 %; Nucleated Red Blood Cells % 0 %; Platelet Count 249 10^3/cmm (157-399); Red Blood Count 3.55 10^6/uL (3.85-5.65); Red Cell Distribution Width 17.8 % (12.1-15.1); White Blood Count 11.13 10^3/uL (3.29-11.43)
[2023-02-25 11:48] LABS: Alanine Aminotransferase 10 U/L (0-41); Alkaline Phosphatase 122 U/L (40-130); Aspartate Amino Transferase 15 U/L (0-40); Blood Urea Nitrogen 23 mg/dL (8-23); Calcium 9.1 mg/dL (8.5-10.5); Carbon Dioxide 26 mmol/L (22-29); Chloride 100 mmol/L (98-107); Creatine Phosphokinase 45 U/L (39-308); Globulin 2.6 g/dL (1.3-4.6); Glomerular Filtration Rate 74.3 mL/min (90-130); Glucose 94 mg/dL (65-115); Osmolality Calculated 281 mOsm/kg (285-295); Sodium 134 mmol/L (136-145); Total Bilirubin 0.4 mg/dL (0.15-1.2); Total Protein 6.6 g/dL (6.6-8.7)
[2023-02-26] MEDS: sodium chloride 0.9% 250 ML 75 ML IV (12:51)
[2023-02-26] MEDS: palonosetron 0.25 mg/5 mL SDV IVP (12:52)
[2023-02-26 13:00] VITALS: BP 100/65; PULSE 90; RESP 16; TEMP 36.7; O2SAT 93
[2023-02-26 14:40] VITALS: BP 120/78; PULSE 77; RESP 16; O2SAT 96
== END 2023-02-26 23:59 | disposition home or self-care (01) ==
PROVIDERS: Internal Medicine; Nurse Practitioner Family; PCP Family Medicine; Visit Provider Internal Medicine Medical Oncology
DX: C34.90 Malignant neoplasm of unspecified part of unspecified bronchus or lung (principal); Z51.11 Encounter for antineoplastic chemotherapy; N40.0 Benign prostatic hyperplasia without lower urinary tract symptoms; D64.9 Anemia, unspecified; D70.9 Neutropenia, unspecified; Z79.899 Other long term (current) drug therapy
CPT/HCPCS: 36591; 71260; 74177; 80053; 82550; 84153; 85025; 96367; 96413; 99215; J1100; J1642; J2469; J7050; J9223; Q9967

== ENCOUNTER 2023-02-28 07:55 | Oncology outpatient (recurring) (ONCR) | payer MEDICARE, SELFPAY | END 2023-03-16 23:59 | disposition home or self-care (01) | PROVIDERS: PCP Family Medicine; Visit Provider Internal Medicine Medical Oncology | DX: C34.90 Malignant neoplasm of unspecified part of unspecified bronchus or lung (principal) | CPT/HCPCS: 96372; Q5108 ==

== ENCOUNTER 2023-03-19 09:06 | Oncology outpatient (recurring) (ONCR) | payer MEDICARE, SELFPAY ==
[2023-03-19 09:30] VITALS: BP 115/75; PULSE 83; RESP 16; TEMP 36.7; O2SAT 98
[2023-03-19 09:48] LABS: Basophils # 0.1 10^3/uL (0.0-0.1); Basophils % 0.8 %; Eosinophils # 0.2 10^3/uL (0.0-0.8); Eosinophils % 2.2 %; Hematocrit 36.3 % (37-53); Lymphocytes # 1.1 10^3/uL (0.8-4.8); Lymphocytes % 12.6 %; Mean Corpuscular HGB Conc 32.5 g/dL (30-55); Mean Corpuscular Hemoglobin 30.9 pg (27-33); Mean Platelet Volume 10.3 fL (7.4-10.4); Monocytes % 12.1 %; Neutrophils # 6.17 10^3/uL (1.8-7.7); Neutrophils % 71.8 %; Nucleated Red Blood Cells % 0 %; Platelet Count 258 10^3/cmm (157-399); Red Blood Count 3.82 10^6/uL (3.85-5.65); Red Cell Distribution Width 17.4 % (12.1-15.1); White Blood Count 8.59 10^3/uL (3.29-11.43)
[2023-03-19 10:17] LABS: Alanine Aminotransferase 9 U/L (0-41); Albumin Level 4.2 g/dL (3.5-5.2); Alkaline Phosphatase 130 U/L (40-130); Anion Gap 13.6 (5-19); Aspartate Amino Transferase 20 U/L (0-40); Blood Urea Nitrogen 22 mg/dL (8-23); Calcium 9.8 mg/dL (8.5-10.5); Carbon Dioxide 27 mmol/L (22-29); Chloride 101 mmol/L (98-107); Creatine Phosphokinase 41 U/L (39-308); Globulin 2.8 g/dL (1.3-4.6); Glomerular Filtration Rate 83.9 mL/min (90-130); Glucose 88 mg/dL (65-115); Osmolality Calculated 287 mOsm/kg (285-295); Potassium 4.6 mmol/L (3.5-5.1); Sodium 137 mmol/L (136-145); Total Bilirubin 0.5 mg/dL (0.15-1.2)
[2023-03-19] MEDS: sodium chloride 0.9% 250 ML 75 ML IV (11:41)
[2023-03-19] MEDS: palonosetron 0.25 mg/5 mL SDV IVP (11:43)
[2023-03-19] MEDS: LURBINECTEDIN IV (12:10)
[2023-03-19] MEDS: SODIUM CHLORIDE 0.9% IV (12:10)
[2023-03-19] MEDS: pegfilgrastim 6 mg/0.6 mL Kit (onpro) SUBCUT (13:02)
[2023-03-19 13:30] VITALS: BP 110/73; PULSE 76; O2SAT 94
== END 2023-03-19 23:59 | disposition home or self-care (01) ==
PROVIDERS: Internal Medicine; PCP Family Medicine; Visit Provider Internal Medicine Medical Oncology
DX: C34.90 Malignant neoplasm of unspecified part of unspecified bronchus or lung (principal); C34.01 Malignant neoplasm of right main bronchus; N40.0 Benign prostatic hyperplasia without lower urinary tract symptoms; D64.9 Anemia, unspecified; D70.9 Neutropenia, unspecified; Z79.899 Other long term (current) drug therapy
CPT/HCPCS: 80053; 82550; 84153; 85025; 96367; 96375; 96377; 96413; 99215; J1100; J1642; J2469; J2506; J7050; J9223

== ENCOUNTER 2023-04-09 09:21 | Oncology outpatient (recurring) (ONCR) | payer MEDICARE, SELFPAY ==
[2023-04-09 10:32] VITALS: BP 121/83; PULSE 76; RESP 18; TEMP 36.6; O2SAT 92
[2023-04-09 10:37] LABS: Basophils # 0.1 10^3/uL (0.0-0.1); Basophils % 0.7 %; Eosinophils # 0.1 10^3/uL (0.0-0.8); Eosinophils % 1.1 %; Lymphocytes # 1.3 10^3/uL (0.8-4.8); Lymphocytes % 13.6 %; Mean Corpuscular HGB Conc 33.4 g/dL (30-55); Mean Corpuscular Hemoglobin 32.1 pg (27-33); Mean Corpuscular Volume 95.9 fl (82-101); Mean Platelet Volume 10.4 fL (7.4-10.4); Monocytes # 1.2 10^3/uL (0.2-0.9); Monocytes % 12.6 %; Neutrophils # 6.57 10^3/uL (1.8-7.7); Neutrophils % 71.7 %; Nucleated Red Blood Cells % 0 %; Platelet Count 263 10^3/cmm (157-399); Red Blood Count 3.65 10^6/uL (3.85-5.65); Red Cell Distribution Width 16.6 % (12.1-15.1); White Blood Count 9.17 10^3/uL (3.29-11.43)
[2023-04-09 10:53] LABS: Alanine Aminotransferase 14 U/L (0-41); Albumin Level 4.3 g/dL (3.5-5.2); Alkaline Phosphatase 138 U/L (40-130); Anion Gap 13.5 (5-19); Aspartate Amino Transferase 21 U/L (0-40); Blood Urea Nitrogen 16 mg/dL (8-23); Carbon Dioxide 27 mmol/L (22-29); Chloride 101 mmol/L (98-107); Glomerular Filtration Rate 96.1 mL/min (90-130); Glucose 92 mg/dL (65-115); Osmolality Calculated 285 mOsm/kg (285-295); Potassium 4.5 mmol/L (3.5-5.1); Sodium 137 mmol/L (136-145); Total Bilirubin 0.5 mg/dL (0.15-1.2); Total Protein 7.3 g/dL (6.6-8.7)
[2023-04-09] MEDS: palonosetron 0.25 mg/5 mL SDV IVP (11:45)
[2023-04-09] MEDS: sodium chloride 0.9% 250 ML 75 ML IV (11:45)
[2023-04-09] MEDS: SODIUM CHLORIDE 0.9% IV (12:33)
[2023-04-09] MEDS: LURBINECTEDIN IV (12:33)
[2023-04-09] MEDS: pegfilgrastim 6 mg/0.6 mL Kit (onpro) SUBCUT (13:49)
[2023-04-09 14:00] VITALS: BP 103/65; PULSE 85; RESP 18; TEMP 36.8; O2SAT 94
[2023-04-09 18:19] VITALS: BMI 31.1
== END 2023-04-09 23:59 | disposition home or self-care (01) ==
PROVIDERS: Internal Medicine; PCP Family Medicine; Visit Provider Internal Medicine Medical Oncology
DX: C34.90 Malignant neoplasm of unspecified part of unspecified bronchus or lung (principal); C34.01 Malignant neoplasm of right main bronchus; Z79.899 Other long term (current) drug therapy; Z51.11 Encounter for antineoplastic chemotherapy; N40.0 Benign prostatic hyperplasia without lower urinary tract symptoms; D70.9 Neutropenia, unspecified
CPT/HCPCS: 99214; 80053; 85025; 96365; 96374; 96375; 96401; 96413; J1100; J1642; J2469; J2506; J7050; J9223

== ENCOUNTER 2023-04-14 00:08 | Inpatient (IN) | payer MEDICARE, SELFPAY ==
[2023-04-14] VITALS (25 sets, daily range): BP systolic 90–115; BP diastolic 56–71; PULSE 70–93; RESP 16–22; TEMP 36.8–37.9; O2SAT 90–97; BMI 29.7
--- NOTE | 2023-04-14 00:19 | ECG_ITS ---
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 Measurements Intervals [place] Rate: 83 P: 1 NH: 226 QRS: -57 QRSD: 95 T: 31 QT: 345 QTc: 406 Interpretive Statements SINUS RHYTHM WITH FIRST DEGREE AV BLOCK PATTERN CONSISTENT WITH PULMONARY DISEASE LEFT ANTERIOR FASCICULAR BLOCK [QRS AXIS <= -45, QR IN I, RS IN II] Compared to ECG 01/22/2023 17:31:24 First degree AV block now present Sinus tachycardia no longer present Electronically Signed On 04-14-2023 19:25:46 DATA SECURITY CONSULTANT by Asuncion Benjamin M.D. [email or web address]
--- NOTE | 2023-04-14 00:19 | XRR_ITS ---
PROCEDURE INFORMATION: Exam: XR Chest Exam date and time: 04/14/2023 12:24 AM Age: 67 years old Clinical indication: Chest pressure; Prior surgery; Surgery date: 6+ months; Surgery type: Chest port; Patient HX: C/O chest pain. History of lung cancer with RT hilar mass. ; Additional info: Cp TECHNIQUE: Imaging protocol: Radiologic exam of the chest. Views: 1 view. COMPARISON: CT chest abdpel w/*[id number] 02/25/2023 10:58 AM FINDINGS: Tubes, catheters and devices: Left-sided Port-A-Cath redemonstrated. Lungs: Large opacities in the right perihilar station extending laterally and right infrahilar station. Pleural spaces: Unremarkable. No pleural effusion. No pneumothorax. Heart/Mediastinum: Unremarkable. No cardiomegaly. Bones/joints: Unremarkable. XR/XR chest 1V portable [id number] IMPRESSION: Large opacities in the right perihilar station extending laterally and right infrahilar station.
[2023-04-14 00:48] LABS: Basophils % 0.1 %; Eosinophils # 0.1 10^3/uL (0.0-0.8); Eosinophils % 0.2 %; Hematocrit 31.6 % (37-53); Lymphocytes # 0.7 10^3/uL (0.8-4.8); Lymphocytes % 2.4 %; Mean Corpuscular HGB Conc 32.9 g/dL (30-55); Mean Corpuscular Hemoglobin 32.4 pg (27-33); Mean Corpuscular Volume 98.4 fl (82-101); Mean Platelet Volume 10.3 fL (7.4-10.4); Monocytes # 0.3 10^3/uL (0.2-0.9); Monocytes % 0.9 %; Neutrophils % 91.4 %; Nucleated Red Blood Cells % 0 %; Platelet Count 219 10^3/cmm (157-399); Red Blood Count 3.21 10^6/uL (3.85-5.65); Red Cell Distribution Width 16.7 % (12.1-15.1); White Blood Count 29.11 10^3/uL (3.29-11.43)
[2023-04-14 00:58] LABS: INR 0.96 (0.8-1.2)
[2023-04-14 01:04] LABS: Troponin(5th) Baseline 12 ng/L (0-15)
[2023-04-14 01:07] LABS: Alanine Aminotransferase 17 U/L (0-41); Alkaline Phosphatase 146 U/L (40-130); Anion Gap 17.5 (5-19); Aspartate Amino Transferase 23 U/L (0-40); Blood Urea Nitrogen 28 mg/dL (8-23); Calcium 9.3 mg/dL (8.5-10.5); Carbon Dioxide 22 mmol/L (22-29); Chloride 101 mmol/L (98-107); Globulin 2.5 g/dL (1.3-4.6); Glomerular Filtration Rate 66.6 mL/min (90-130); Glucose 138 mg/dL (65-115); Osmolality Calculated 290 mOsm/kg (285-295); Potassium 4.5 mmol/L (3.5-5.1); Sodium 136 mmol/L (136-145); Total Bilirubin 0.5 mg/dL (0.15-1.2); Total Protein 6.5 g/dL (6.6-8.7)
[2023-04-14 01:22] LABS: NT Pro B Type Natriuretic Pept 611 pg/mL (0-125)
[2023-04-14 01:25] LABS: Partial Thromboplastin Time 182.9 SECONDS (23.9-36.7)
[2023-04-14] MEDS: morphine 4 mg/mL SDV 1 mL IVP ×2 (01:45→02:32)
[2023-04-14] MEDS: ondansetron 2 mg/ML SDV 2 mL 4 MG IVP ×2 (01:46→06:43)
[2023-04-14] MEDS: LACTATED RINGERS 2585.49 ML IV (01:47)
[2023-04-14] MEDS: piperacillin-tazobactam 4.5 GM in sodium chloride 0.9% (plus) 50 ML IV (01:48)
--- NOTE | 2023-04-14 01:50 | CTR_ITS ---
PROCEDURE INFORMATION: Exam: CTA Chest With Contrast Exam date and time: 04/14/2023 2:51 AM Age: 67 years old Clinical indication: Shortness of breath; Prior surgery; Surgery date: 6+ months; Surgery type: Chest port. Coronary stent; Patient HX: C/O chest pain radiating into upper back with SOB. History of small cell lung cancer and copd. ; Additional info: Chest pain, Dr. Valadez request TECHNIQUE: Imaging protocol: Computed tomographic angiography of the chest with contrast. Exam focused on the arteries. 3D rendering (Not supervised by radiologist): MIP and/or 3D reconstructed images were created by the technologist. Radiation optimization: All CT scans at this facility use at least one of these dose optimization techniques: automated exposure control; mA and/or kV adjustment per patient size (includes targeted exams where dose is matched to clinical indication); or iterative reconstruction. Contrast material: OMNI 350; Contrast volume: 47 ml; Contrast route: INTRAVENOUS (IV); COMPARISON: CT chest abdpel w/*[id number] 02/25/2023 10:58 AM RADIATION DOSE METRICS: Total DLP (mGy-cm): 505.48 FINDINGS: Tubes, catheters and devices: A Port-A-Cath is implanted in the subcutaneous tissues of the anterior left upper chest with the catheter tip in the superior vena cava there is likely fibrin sheath noted at the catheter tip. Pulmonary arteries: There is relatively poor enhancement of the right upper lobe pulmonary arteries without evidence for a central filling defect. Aorta: Unremarkable. No aortic aneurysm. No aortic dissection. Lungs: There is perihilar, upper and lower lobe patchy consolidation in the right lung. Vague ground-glass interstitial change is noted in the left lower lobe. Calcified granulomas are noted in the right lung measuring up to 10 mm in the lower lobe. Pleural spaces: There is a small to moderate right pleural effusion with loculated fluid noted along the anterior aspect of the right upper lobe. Heart: Unremarkable. No cardiomegaly. No pericardial effusion. Coronary artery calcification is present. Lymph nodes: Calcified mediastinal right hilar lymphadenopathy is present. Spleen: Granulomatous disease is noted in the spleen. Bones/joints: Degenerative changes are noted in the bones. Soft tissues: Unremarkable. CT/CT angio chest PE protcl [id number] IMPRESSION: There is no evidence for acute pulmonary embolism. Relatively poor enhancement of the right upper lobe pulmonary arteries likely due to encasement and obstruction by lymphadenopathy. Perihilar consolidations noted on the right. Right pleural effusion. Granulomatous disease in the chest and upper abdomen. Other than mild enlargement of the right pleural effusion, there is no significant change from the prior examination.
[2023-04-14] MEDS: vancomycin 1,250 MG/250 ML PIGGYBACK 250 MG IV ×2 (01:51→20:28)
--- NOTE | 2023-04-14 02:53 | USCV_ITS ---
Karl Martinez Age: 67 Gender: M : 1955 Exam Date: 04/14/2023 08:09 Ordering Phys: Carlito Valadez MD Technologist: Rahul Shepard Exam Location: [facility] [place] Indication: CP BP: 156 / 86 HR: 83 Rhythm: Sinus Technical Quality: Adequate MEASUREMENTS (Male / Female) Normal Values 2D ECHO LV Diastolic Diameter PLAX 4.3 cm 4.2 - 5.9 / 3.9 - 5.3 cm LV Systolic Diameter PLAX 1.9 cm IVS Diastolic Thickness 1.1 cm 0.6 - 1.0 / 0.6 - 0.9 cm IVS Systolic Thickness 1.3 cm LVPW Diastolic Thickness 1.0 cm 0.6 - 1.0 / 0.6 - 0.9 cm LVPW Systolic Thickness 1.3 cm LVOT Diameter 2.0 cm LV Ejection Fraction 2D Teich 86.0 % LV Ejection Fraction MOD 2C 62.1 % LV Ejection Fraction 2C AL 62.2 % LA Diameter 3.4 cm M-MODE Aortic Annulus Diameter 4.0 cm LA Ao Ratio MM 1.0 MV E Point Septal Separation 0.6 cm DOPPLER AV Peak Velocity 168.0 cm/s LVOT Peak Velocity 118.0 cm/s AV Area Cont Eq vti 2.9 cm squared AV Area Cont Eq pk 2.3 cm squared MV Area PHT 5.0 cm squared Mitral E to A Ratio 1.2 MV E' Velocity 54.5 cm/s Mitral E to MV E' Ratio 9.3 Mitral E to LV E' Lateral Ratio 9.8 Mitral E to LV E' Septal Ratio 8.8 TR Peak Velocity 183.7 cm/s TR Peak Gradient 13.5 mmHg RV Acceleration Time 0.1 s FINDINGS Left Ventricle Left ventricle is normal in size. LV systolic function is normal with EF of 60 to 65%. No regional wall motion abnormalities are seen. Right Ventricle Normal in size and function Right Atrium Normal in size Left Atrium Normal in size Mitral Valve Structurally normal mitral valve. Mild mitral regurgitation. Aortic Valve Aortic valve is thickened. No significant stenosis or regurgitation. Tricuspid Valve Mild tricuspid regurgitation. Insufficient TR jet to calculate RVSP. Pulmonic Valve Not well-visualized. Pericardium Normal Aorta Normal in size IVC Appears to be normal CONCLUSIONS LV systolic function is normal with EF of 60 to 65%. Mild mitral regurgitation. Mild tricuspid regurgitation. Compared to prior echocardiogram from 2021, no significant changes are seen Mervin Noe MD (Electronically Signed) Final Date: 14 April 2023 12:15 S
--- NOTE | 2023-04-14 02:54 | PM.HP ---
Providers/Chief Complaint Chief Complaint: cp,back pain History of Present Illness Karl Martinez is a 67 year old male ecurrent metastatic small cell lung cancer with mets including around his pancreas and right adrenal, on chemotherapy, who presents to [facility] due to chest pain, and shortness of breath fatigue, malaise. Patient tells me that he recently had a chemotherapy session, received Neulasta, since then he has been feeling unwell, fatigue, malaise, this evening he started develop chest pain radiating to his back to his neck associate with shortness of breath does have a nonproductive cough, no fevers, no chills Review of Systems Const: Denies: fever(s) Card: Reports: chest pain Resp: Reports: dyspnea Medications/Allergies Home Medications Medication Instructions Recorded Confirmed Last Taken Type aspirin 81 mg tablet,delayed 81 mg PO QAM 01/07/22 04/09/23 05/19/22 History release nitroglycerin 0.4 mg sublingual 0.4 mg sublingual Q5M PRN Chest 02/21/22 04/09/23 Unknown Rx tablet (Nitrostat) Pain #25 tabs ferrous sulfate 325 mg (65 mg 325 mg PO DAILY 06/28/22 04/09/23 Unknown History iron) tablet ascorbic acid (vitamin C) 1,000 mg 1 g PO DAILY 08/09/22 04/09/23 Unknown History capsule cholecalciferol (vitamin D3) 125 125 mcg PO DAILY 08/09/22 04/09/23 Unknown History mcg (5,000 unit) capsule mecobalamin (vitamin B12) 500 mcg See Rx Instructions PO DAILY 08/09/22 04/09/23 Unknown History chewable tablet nmgedsru-yil-oaspg 150 mcg-vit K1 1 tab PO DAILY 08/09/22 04/09/23 Unknown History 30 mcg-lycop 300 mcg-lutein tablet (Centrum Minis Men 50 Plus) fluticasone propionate 50 1 spray intranasal Q12H #16 grams 12/04/22 04/09/23 Unknown Rx mcg/actuation nasal spray,suspension lorazepam 1 mg tablet 0.5 - 1 mg (0.5 - 1 x 1 mg) PO Q6H 12/16/22 04/09/23 Unknown Rx PRN Severe Nausea #30 tabs acetaminophen 650 mg 650 mg PO Q8H 12/17/22 04/09/23 Unknown History tablet,extended release (Pain Relief (acetaminophen)) ibuprofen 200 mg capsule 200 mg PO Q6H PRN Pain 12/17/22 04/09/23 Unknown History ondansetron HCl 4 mg tablet 4 mg PO QID PRN Nausea/vomiting 12/17/22 04/09/23 Unknown Rx #30 tabs prochlorperazine maleate 10 mg 10 mg PO Q4H PRN Mild Nausea #30 12/17/22 04/09/23 Unknown Rx tablet (Compazine) tabs tizanidine 2 mg tablet 2 mg PO Q8H PRN muscle spasticity 02/03/23 04/09/23 Unknown Rx #90 tabs omeprazole 20 mg capsule,delayed 20 mg PO QAM 90 days #90 caps 03/04/23 04/09/23 Unknown Rx release sertraline 25 mg tablet (Zoloft) 25 mg PO DAILY 90 days #90 tabs 03/04/23 04/09/23 Unknown Rx Allergies Allergy/AdvReac Type Severity Reaction Status Date / Time Hwmdxth-NOU-IpA Reductase Allergy Unknown Verified 04/09/23 10:46 Inhibitor PFSH Acute PFSH: Medical History Port-A-Cath in place Neutropenia Chronic back pain GERD (gastroesophageal reflux disease) Coronary artery disease Small cell lung cancer, right middle lobe Hypertension Abdominal aortic aneurysm Congenital umbilical hernia Carpal tunnel syndrome on both sides Past heart attack COPD (chronic obstructive pulmonary disease) Surgical History Hx of umbilical hernia repair History of tonsillectomy and adenoidectomy History of bilateral carpal tunnel release S/P AAA repair using bifurcation graft History of endovascular stent graft for abdominal aortic aneurysm (AAA) History of heart artery stent S/P rotator cuff repair Family History Family/Other Cancer Father CAD (coronary artery disease) Stroke Brother CAD (coronary artery disease) Brother CAD (coronary artery disease) Diabetes Sister CAD (coronary artery disease) Cancer Chronic kidney disease (CKD) Diabetes Sister Cancer Diabetes Mother Stroke Other Hyperlipidemia Hypertension Psychiatric illness Denies family history of Clotting disorder Dementia Suicide Anesthesia complication Bleeding disorder Lung disease Social History Smoking and tobacco/nicotine status: former use of tobacco/nicotine (smoked x 50+ years) Quit status (tobacco/nicotine): has quit using Year quit tobacco: 2021 Former quit date comment: December 2021 Alcohol intake: never Substance/Drug Use: never Vitals/I&O/Wt Last Vital Signs Temp 99.6 F 04/14/23 02:42 Pulse 84 04/14/23 02:42 Resp 22 H 04/14/23 02:32 BP 90/61 04/14/23 02:42 Pulse Ox 93 04/14/23 02:42 O2 Del Method Nasal Cannula 04/14/23 02:42 O2 Flow Rate 3 04/14/23 02:42 Weight last 48 hrs Weight 86.183 kg Physical Exam Const: COMMON NORMALS: no acute distress and patient oriented x3 HENMT: COMMON NORMALS: normocephalic HEAD & SCALP: normocephalic Eye: COMMON NORMALS: Equal, round and reactive pupils present and EOMs intact bilaterally Neck/C-Spine: COMMON NORMALS: full ROM and no lymphadenopathy Resp: COMMON NORMALS: normal respiratory effort, No retractions and No use of accessory muscles AUSCULTATION: crackles and wheezes Cardio: COMMON NORMALS: regular rate, regular rhythm, S1 normal heart sound present and S2 normal heart sound present RATE: regular rate RHYTHM: regular rhythm HEART SOUNDS: S1 normal heart sound present and S2 normal heart sound present GI: COMMON NORMALS: Normal to inspection, nondistended, normoactive bowel sounds present, Soft to palpation and non-tender Extremity: COMMON NORMALS: no calf tenderness and no pedal edema Neuro: COMMON NORMALS: patient oriented x3, CN's II-XII intact bilaterally and moves all extremities Psych: COMMON NORMALS: mental status grossly normal Data 04/14/23 00:39 04/14/23 00:39 A&P Assessment and plan (1) Acute hypoxic respiratory failure: (2) Small cell lung cancer: (3) Pneumonia: (4) Chest pain: Plan Acute hypoxic respiratory failure -Secondary to pneumonia -Suspicion for PE, CT angiogram of the chest ordered -Immunocompromised on chemotherapy Plan -CT angiogram of the chest, serial EKGs, short appointment telemetry monitoring, cardiac echo -Sputum cultures, blood cultures -Respiratory viral panel -Continue vancomycin -Continue zosyn -DuoNeb -Monitor respiratory status closely -Chest pain, serial EKGs, serial troponins, telemetry monitoring -Full code -Lovenox for DVT prophylaxis Attestations Medical Necessity Statement*: Patient requires hospitalization, inpatient, greater than 2 minutes, for acute hypoxic respiratory failure secondary to pneumonia Diagnoses Acute hypoxic respiratory failure J96.01 Small cell lung cancer C34.90 Pneumonia J18.9 Chest pain R07.9
[2023-04-14] MEDS: iohexol 350 mg/mL 500 mL Btl (per mL) IV (02:56)
--- NOTE | 2023-04-14 02:58 | CTR_ITS ---
PROCEDURE INFORMATION: Exam: CT Thoracic Spine Without Contrast Exam date and time: 04/14/2023 3:38 AM Age: 67 years old Clinical indication: Other: Radiating pain; Patient HX: C/O chest pain that radiates into upper back. History of small cell lung cancer. TECHNIQUE: Imaging protocol: Computed tomography of the thoracic spine without contrast. Radiation optimization: All CT scans at this facility use at least one of these dose optimization techniques: automated exposure control; mA and/or kV adjustment per patient size (includes targeted exams where dose is matched to clinical indication); or iterative reconstruction. COMPARISON: PT PET skulltothi INITIAL [id number] 04/06/2022 12:35 PM RADIATION DOSE METRICS: Total DLP (mGy-cm): 1262.51 FINDINGS: Bones/joints: There is a 19 degree dextroscoliosis of the thoracic spine centered at T7. Vertebral body heights are generally preserved. There is no significant thoracic canal or foraminal narrowing. Soft tissues: Unremarkable. Lungs: Please correlate with the report for a CT angiogram of the thorax for more complete description of pulmonary findings. CT/CT thoracic spin wo con* [id number] IMPRESSION: Dextroscoliosis of the thoracic spine. Otherwise no acute process. If there is clinical suspicion for metastatic disease, consider PET-CT or MRI of the thoracic spine with and without intravenous contrast.
[2023-04-14 03:01] LABS: Troponin 5 2HR 10.99 ng/L (0-15); Troponin 5 2HR Delta -1.01 ABS# (0-10)
[2023-04-14 03:21] LABS: C Reactive Protein 9.4 mg/L (0.0-4.9); Lactic Sepsis W/Reflex 1.6 mmol/L (0.5-2.2)
[2023-04-14 03:47] LABS: Adenovirus Not Detected (NOT DETECT); Chlamydia Pneumoniae Not Detected (NOT DETECT); Coronavirus 229E,HKU1,NL63,OC4 Not Detected (NOT DETECT); Human Metapneumovirus Not Detected (NOT DETECT); Human Rhinovirus/Enterovirus Not Detected (NOT DETECT); Influenza A Not Detected (NOT DETECT); Influenza A H1 Not Detected (NOT DETECT); Influenza A H1-2009 Not Detected (NOT DETECT); Influenza A H3 Not Detected (NOT DETECT); Influenza B Not Detected (NOT DETECT); Mycoplasma Pneumoniae Not Detected (NOT DETECT); Parainfluenza Virus Type 1 Not Detected (NOT DETECT); Parainfluenza Virus Type 2 Not Detected (NOT DETECT); Parainfluenza Virus Type 3 Not Detected (NOT DETECT); Parainfluenza Virus Type 4 Not Detected (NOT DETECT); Respiratory Syncytial Virus A Not Detected (NOT DETECT); Respiratory Syncytial Virus B Not Detected (NOT DETECT); SARS-COV-2 Not Detected (NOT DETECT)
[2023-04-14 04:15] LABS: Thyroid Stimulating Hormone 0.99 uIU/mL (0.27-4.20)
[2023-04-14] MEDS: enoxaparin 40 mg/0.4 mL Syringe SUBCUT (04:38)
[2023-04-14] MEDS: pantoprazole 40 mg SDV IVP (04:38)
--- NOTE | 2023-04-14 04:40 | ED_ITS ---
HPI - Chest Pain 2 General: Chief Complaint: Chest Pain Stated Complaint: cp,back pain Time Seen by Provider: 04/14/23 00:17 History of Present Illness: 67-year-old male with a known history of right-sided lung cancer. He presents with right greater than left pleuritic type chest discomfort. He is mildly short of breath. Pain is intense. It started around 10 PM. He has a history of coronary disease with a stent in 2009. No definite history of fever. PFSH ED 2 PFSH: Medical History Port-A-Cath in place Neutropenia Chronic back pain GERD (gastroesophageal reflux disease) Coronary artery disease Small cell lung cancer, right middle lobe Hypertension Abdominal aortic aneurysm Congenital umbilical hernia Carpal tunnel syndrome on both sides Past heart attack COPD (chronic obstructive pulmonary disease) Surgical History Hx of umbilical hernia repair History of tonsillectomy and adenoidectomy History of bilateral carpal tunnel release S/P AAA repair using bifurcation graft History of endovascular stent graft for abdominal aortic aneurysm (AAA) History of heart artery stent S/P rotator cuff repair Family History Family/Other Cancer Father CAD (coronary artery disease) Stroke Brother CAD (coronary artery disease) Brother CAD (coronary artery disease) Diabetes Sister CAD (coronary artery disease) Cancer Chronic kidney disease (CKD) Diabetes Sister Cancer Diabetes Mother Stroke Other Hyperlipidemia Hypertension Psychiatric illness Denies family history of Clotting disorder Dementia Suicide Anesthesia complication Bleeding disorder Lung disease Social History Smoking and tobacco/nicotine status: former use of tobacco/nicotine (smoked x 50+ years) Quit status (tobacco/nicotine): has quit using Year quit tobacco: 2021 Former quit date comment: December 2021 Alcohol intake: never Substance/Drug Use: never Course 2 Vital Signs: Vital signs: Vital Signs Temperature 98.2 F 04/14/23 05:00 Pulse Rate 81 04/14/23 05:00 Respiratory Rate 18 04/14/23 05:00 Blood Pressure 102/66 04/14/23 05:00 Pulse Oximetry 93 04/14/23 05:00 Oxygen Delivery Me thod Nasal Cannula 04/14/23 03:20 Oxygen Flow Rate 3 04/14/23 03:20 MDM - Chest Pain Medical Decision Making Patient's pain is improved after morphine and Zofran here in the ER. White blood cell count is 29, but the patient did receive Neupogen shot 3 days prior. Hemoglobin is 10. BUN is 28, creatinine is 1.1. Chest x-ray shows opacities in the right perihilar section of the lung consistent with pneumonia. Viral panel shows no virus detected. CRP is only 9. EKG shows a sinus rhythm with a rate of 90. No ST elevation was noted. SC interval is 0.23 indicating first-degree AV block. Other intervals are normal. CTA is performed showing right-sided infiltrates and effusion. Delta troponin is -1. He will be admitted given oxygen requirement, consolidation on chest x-ray and CTA, in fact that he is a cancer patient. He was started on Vanco and Zosyn after blood cultures in the ER. Fluid bolus was completed as well. Hospitalist has seen the patient in the ER. Lab Data 04/14/23 00:39 04/14/23 00:39 Radiology Impressions Chest X-Ray 04/14/23 00:19 IMPRESSION: Large opacities in the right perihilar station extending laterally and right infrahilar station. Chest CTA 04/14/23 01:50 IMPRESSION: There is no evidence for acute pulmonary embolism. Relatively poor enhancement of the right upper lobe pulmonary arteries likely due to encasement and obstruction by lymphadenopathy. Perihilar consolidations noted on the right. Right pleural effusion. Granulomatous disease in the chest and upper abdomen. Other than mild enlargement of the right pleural effusion, there is no significant change from the prior examination. Thoracic Spine CT 04/14/23 02:58 IMPRESSION: Dextroscoliosis of the thoracic spine. Otherwise no acute process. If there is clinical suspicion for metastatic disease, consider PET-CT or MRI of the thoracic spine with and without intravenous contrast. Laboratory Results WBC 29.11 10^3/uL (3.29-11.43) H 04/14/23 00:39 RBC 3.21 10^6/uL (3.85-5.65) L 04/14/23 00:39 Hgb 10.40 g/dL (11.27-16.99) L 04/14/23 00:39 Hct 31.6 % (37-53) L 04/14/23 00:39 MCV 98.4 fl (82-101) 04/14/23 00:39 MCH 32.4 pg (27-33) 04/14/23 00:39 MCHC 32.9 g/dL (30-55) 04/14/23 00:39 RDW 16.7 % (12.1-15.1) H 04/14/23 00:39 Plt Count 219 10^3/cmm (157-399) 04/14/23 00:39 MPV 10.3 fL (7.4-10.4) 04/14/23 00:39 Neut % (Auto) 91.4 % 04/14/23 00:39 Lymph % (Auto) 2.4 % 04/14/23 00:39 [place] % (Auto) 0.9 % 04/14/23 00:39 Eos % (Auto) 0.2 % 04/14/23 00:39 Baso % (Auto) 0.1 % 04/14/23 00:39 Neut # (Auto) 26.60 10^3/uL (1.8-7.7) H 04/14/23 00:39 Lymph # (Auto) 0.7 10^3/uL (0.8-4.8) L 04/14/23 00:39 [place] # (Auto) 0.3 10^3/uL (0.2-0.9) 04/14/23 00:39 Eos # (Auto) 0.1 10^3/uL (0.0-0.8) 04/14/23 00:39 Baso # (Auto) 0.0 10^3/uL (0.0-0.1) 04/14/23 00:39 Nucleated RBC % (auto) 0 % 04/14/23 00:39 Nucleated RBCs # 0.0 /100WBC 04/14/23 00:39 PT 13.00 SECONDS (12.1-14.9) 04/14/23 00:39 INR 0.96 (0.8-1.2) 04/14/23 00:39 APTT 182.9 SECONDS (23.9-36.7) H* 04/14/23 00:39 Sodium 136 mmol/L (136-145) 04/14/23 00:39 Potassium 4.5 mmol/L (3.5-5.1) 04/14/23 00:39 Chloride 101 mmol/L (98-107) 04/14/23 00:39 Carbon Dioxide 22 mmol/L (22-29) 04/14/23 00:39 Anion Gap 17.5 (5-19) 04/14/23 00:39 BUN 28 mg/dL (8-23) H 04/14/23 00:39 Creatinine 1.1 mg/dL (0.7-1.2) 04/14/23 00:39 GFR Calculation 66.6 mL/min (90-130) L 04/14/23 00:39 Glucose 138 mg/dL (65-115) H 04/14/23 00:39 Calculated Osmolality 290 mOsm/kg (285-295) 04/14/23 00:39 Lactic Acid 1.6 mmol/L (0.5-2.2) 04/14/23 00:39 Calcium 9.3 mg/dL (8.5-10.5) 04/14/23 00:39 Total Bilirubin 0.5 mg/dL (0.15-1.2) 04/14/23 00:39 AST 23 U/L (0-40) 04/14/23 00:39 ALT 17 U/L (0-41) 04/14/23 00:39 Alkaline Phosphatase 146 U/L (40-130) H 04/14/23 00:39 Troponin T Baseline 12 ng/L (0-15) 04/14/23 00:39 Troponin T 120 Minute 10.99 ng/L (0-15) 04/14/23 02:37 Delta Troponin T -1.01 ABS# (0-10) L 04/14/23 02:37 C-Reactive Protein 9.4 mg/L (0.0-4.9) H 04/14/23 00:39 NT-Pro-B Natriuret Pep 611 pg/mL (0-125) H 04/14/23 00:39 Total Protein 6.5 g/dL (6.6-8.7) L 04/14/23 00:39 Albumin 4.0 g/dL (3.5-5.2) 04/14/23 00:39 Globulin 2.5 g/dL (1.3-4.6) 04/14/23 00:39 Procalcitonin 0.10 ng/mL (0-0.5) 04/14/23 00:39 TSH 0.99 uIU/mL (0.27-4.20) 04/14/23 02:37 Adenovirus (PCR) Not detected (NOT DETECT) 04/14/23 01:53 C. pneumoniae DNA (PCR) Not detected (NOT DETECT) 04/14/23 01:53 Coronavirus 229E (PCR) Not detected (NOT DETECT) 04/14/23 01:53 Human Metapneumovir PCR Not detected (NOT DETECT) 04/14/23 01:53 Influenza A (H1) PCR Not detected (NOT DETECT) 04/14/23 01:53 Influ A (H1/09) PCR Not detected (NOT DETECT) 04/14/23 01:53 Influenza A (H3) PCR Not detected (NOT DETECT) 04/14/23 01:53 Influenza Type A (PCR) Not detected (NOT DETECT) 04/14/23 01:53 Influenza Type B (PCR) Not detected (NOT DETECT) 04/14/23 01:53 M. pneumoniae (PCR) Not detected (NOT DETECT) 04/14/23 01:53 Parainfluenza 1 (PCR) Not detected (NOT DETECT) 04/14/23 01:53 Parainfluenza 2 (PCR) Not detected (NOT DETECT) 04/14/23 01:53 Parainfluenza 3 (PCR) Not detected (NOT DETECT) 04/14/23 01:53 Parainfluenza 4 (PCR) Not detected (NOT DETECT) 04/14/23 01:53 RSV Type A (PCR) Not detected (NOT DETECT) 04/14/23 01:53 RSV Type B (PCR) Not detected (NOT DETECT) 04/14/23 01:53 Entero/Rhino (PCR) Not detected (NOT DETECT) 04/14/23 01:53 SARS-CoV-2 (PCR) Not detected (NOT DETECT) 04/14/23 01:53 All radiology interpretation(s) finalized by discharge Discharge Plan Discharge Patient Disposition: Admitted As Inpatient Admit Provider: Carlito Valadez Clinical Impression: Acute hypoxic respiratory failure, Chest pain, Small cell lung cancer, Pneumonia Condition: Fair Coding Level of Care Code ED Foundry Helper for g Fwd
[2023-04-14] MEDS: morphine 4 mg/mL SDV 1 mL 2 MG IVP ×3 (04:45→23:37)
[2023-04-14 05:02] LABS: Partial Thromboplastin Time 29.7 SECONDS (23.9-36.7)
[2023-04-14] MEDS: aspirin 81 mg EC Tablet PO (05:11)
--- NOTE | 2023-04-14 06:19 | ECG_ITS ---
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 Measurements Intervals [place] Rate: 80 P: -20 VT: 230 QRS: -56 QRSD: 92 T: 7 QT: 351 QTc: 406 Interpretive Statements SINUS RHYTHM WITH FIRST DEGREE AV BLOCK LEFT ANTERIOR FASCICULAR BLOCK [QRS AXIS <= -45, QR IN I, RS IN II] Compared to ECG 04/14/2023 02:19:06 No significant changes Electronically Signed On 04-14-2023 19:31:54 BIOMEDICAL ENGINEERING TECHNICIAN by Asuncion Benjamin M.D. [id number]
[2023-04-14 06:55] LABS: Troponin 5 6HR 11.62 ng/L (0-15); Troponin 5 6HR Delta -0.38 ng/L (0-12)
[2023-04-14] MEDS: piperacillin-tazobactam 3.375 GM in sodium chloride 0.9% (plus) 50 ML IV ×3 (08:58→23:36)
[2023-04-14] MEDS: sertraline 50 mg Tablet 25 MG PO (08:59)
[2023-04-14] MEDS: ipratropium-albuterol 3 mL Neb INHALATION ×4 (09:10→20:10)
--- NOTE | 2023-04-14 11:02 | W.PM.EVENTAC ---
Event Note Event Note: Significant leukocytosis No active chest pain No signs of PE however due to lymphadenopathy right upper lobe pulmonary vessels were not visualized completely she is requiring 3 L of oxygen Will plan for stress test tomorrow morning No signs of PE as of now Will request venous Doppler Right-sided pleural effusion Concern for pneumonia
--- NOTE | 2023-04-14 11:04 | ECG_ITS ---
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 Interpretive Statements NAME OF STUDY: LEXISCAN SESTAMIBI STRESS TEST INDICATION: [UA] Procedure: At the baseline, the blood pressure was 91/53 mmHg with a heart rate of 76 bpm. The electrocardiogram showed normal sinus rhythm, normal axis with baseline nonspecific ST elevation in lead I. The Lexiscan was infused over a period of 20 seconds. A total of 0.4 mg of Lexiscan was infused. The stress phase was continued for a total of 5 minutes. Heart rate was at the end of stress phase was 104 bpm and a blood pressure of 101/63 mmHg. The EKG at the peak infusion revealed normal sinus rhythm with no significant ST-T wave changes. Sestamibi was injected 20 seconds after the Lexiscan infusion. Blood pressure at the end of recovery phase was 95/45 mmHg with a heart rate of 88 bpm. Conclusion: 1. Normal EKG response to Lexiscan infusion 2. No Lexiscan induced chest pain or cardiac arrhythmia. 3. Normal blood pressure and heart rate response. 4. Sestamibi/sestamibi perfusion scan pending; see separate report. Electronically Signed On 04-20-2023 12:07:58 WATCH AND CLOCK MAKER AND REPAIRER by Mervin Noe M.D. [id number]
[2023-04-15] VITALS (10 sets, daily range): BP systolic 91–110; BP diastolic 45–78; PULSE 75–88; RESP 16–18; TEMP 36.7–36.9; O2SAT 85–97
[2023-04-15] MEDS: aspirin 81 mg EC Tablet PO (05:27)
[2023-04-15] MEDS: enoxaparin 40 mg/0.4 mL Syringe SUBCUT (05:27)
[2023-04-15 05:41] LABS: Basophils # 0.1 10^3/uL (0.0-0.1); Basophils % 0.7 %; Eosinophils % 0.3 %; Hematocrit 26.5 % (37-53); Lymphocytes # 0.7 10^3/uL (0.8-4.8); Lymphocytes % 7.5 %; Mean Corpuscular HGB Conc 32.5 g/dL (30-55); Mean Corpuscular Hemoglobin 32.1 pg (27-33); Mean Corpuscular Volume 98.9 fl (82-101); Mean Platelet Volume 9.9 fL (7.4-10.4); Monocytes # 0.3 10^3/uL (0.2-0.9); Monocytes % 3.4 %; Neutrophils # 7.47 10^3/uL (1.8-7.7); Neutrophils % 85.5 %; Nucleated Red Blood Cells % 0 %; Platelet Count 136 10^3/cmm (157-399); Red Blood Count 2.68 10^6/uL (3.85-5.65); Red Cell Distribution Width 16.4 % (12.1-15.1); White Blood Count 8.75 10^3/uL (3.29-11.43)
[2023-04-15 06:06] LABS: Anion Gap 14.6 (5-19); Blood Urea Nitrogen 22 mg/dL (8-23); Calcium 8.6 mg/dL (8.5-10.5); Carbon Dioxide 24 mmol/L (22-29); Chloride 101 mmol/L (98-107); Glomerular Filtration Rate 66.6 mL/min (90-130); Glucose 104 mg/dL (65-115); Osmolality Calculated 284 mOsm/kg (285-295); Potassium 4.6 mmol/L (3.5-5.1); Sodium 135 mmol/L (136-145)
[2023-04-15 06:11] LABS: Slide Review Slide Review Perform
[2023-04-15] MEDS: regadenoson 0.4 Mg/5 ml Syringe IVP (07:35)
--- NOTE | 2023-04-15 08:00 | NMCV_ITS ---
NM leah perf SPECT r/s* [id number] Karl Martinez Age: 67 Gender: M : 1955 Exam Date: 04/15/2023 06:39 Ordering Phys: Caio Hollis MD Technologist: BRANDIE Vides Exam Location: [facility] Indications: CHEST PAIN STRESS TEST Please see separate stress test report in [facility] for full findings IMAGE PROTOCOL Rest/Stress 1 Lexiscan Day Radiopharmaceutical Dose (mCi) Administration Site Administered by Rest: Tc-99m 10.7 IV BRANDIE Remy Sestamibi Stress:Tc-99m 33.0 IV BRANDIE Remy Sestamibi Rest: 15-Apr-2023 60 Discovery 630 Stress: 15-Apr-2023 30 Discovery 630 0.4mg Lexiscan. Supine position only as patient was unable to lay prone. SPECT RESULTS Technical Quality: Excellent Raw Data Analysis: Normal Image Corrections: No attenuation or motion correction applied Summed Stress Score: 8 Summed Rest Score: 10 Summed Difference Score: 1 PERFUSION FINDINGS There is a large in size, mostly fixed perfusion defect noted in inferior wall. This is consistent with large sized prior infarct with minimal brien-infarct ischemia seen in RCA territory. FUNCTIONAL RESULTS (calculated via Gated SPECT) Stress Image LV EF (%): 72 Stress EDV (mL):119 TID: 1.01 Stress ESV (mL):33 FUNCTIONAL FINDINGS: There is normal left ventricular systolic function. IMPRESSIONS 1. Large sized prior infarct with minimal brien-infarct ischemia is seen in the RCA territory. 2. LV systolic function is normal Mervin Noe MD (Electronically Signed) Final Date: 15 April 2023 09:47 S
[2023-04-15] MEDS: piperacillin-tazobactam 3.375 GM in sodium chloride 0.9% (plus) 50 ML IV (08:45)
[2023-04-15] MEDS: sertraline 50 mg Tablet 25 MG PO (08:45)
--- NOTE | 2023-04-15 10:08 | PC.CHAP ---
Pastoral Care Encounter/Spiritual Assessment Type of Contact [] Declined clay grinder visit [] Patient/Family/Request visit [] Outpatient visit [] Follow-up visit [] Physician referral [] Code/Alert [x] Routine visit [] Staff referral [] Actively dying [] Patient sleeping [] Family support [] [] Out of room [] Palliative care [] [] Receiving care in room [] Pre-surgical visit [] Trauma [] Long length of stay [] ICU visit [] Other: Relational/Emotional Strength [x] Patient feels connected with others/family/visitors/staff [] Distress [] Loneliness/isolation [] Abandonment Spirituality of Patient [x] Person of [place] [] Attends Caodaism of their [place] [x] Believes in Prayer [] Reads Bible or Bahai materials [] There are Spiritual issues to be addressed [place] Interventions [x] Prayer [] Active listening [] Non-anxious presence [x] Spiritual/emotional support [] Crisis/trauma care [] Spiritual counseling [] Bereavement support [] Provided bereavement packet [] Provided Bible/devotional materials [] Provided toy/stuffed animal, coloring book to patient or family member [] Provided Communion [] Anointing/[place] [] Salvation [x] Completed spiritual assessment [] Other: Impact on Illness or Injury [] Angry [] Fearful [] Anxious [] Often cries [] Exhaustion [] Unable to work [] Unable to attend zoroastrianism [] Unable to walk/stand [] Unable to read [] Unable to drive [] Unable to eat/drink [] Unable to sleep [] Unable to be with family [] Patient intubated [] Other: Summary Time spent with patient 5 min
--- NOTE | 2023-04-15 10:16 | PM.DCS ---
Discharge Providers Date of Admission: 04/14/23 02:49 Date of Discharge: April 15, 2023 Attending Provider at Admission: Carlito Valadez MD Attending Provider at Discharge: Caio Hollis MD Diagnoses at Discharge Discharge Diagnosis (1) Acute hypoxic respiratory failure: Status: Acute (2) Small cell lung cancer: Status: Acute (3) Pneumonia: Status: Resolved (4) Chest pain: Status: Acute Reason for Visit Reason for Visit: cp,back pain Hospital Course Hospital Course 67-year-old male who was admitted for management evaluation of atypical chest discomfort, stress test was recommended, his echo was unremarkable, CTA did not show any PE however he does seem to have right hilar consolidation consistent with pneumonia, he remained afebrile, he required 3 L of oxygen at the time of discharge which is new, etiology of hypoxia is likely pneumonia, please note right upper lobe blood vessels were not completely able to be visualized because of significant lymphadenopathy related to cancer patient is due for a PET scan in June, CBC unremarkable, process showed previous infarct and brien-infarct ischemia in RCA territory, echo is unremarkable, no active chest pain, troponins with negative delta maximum troponin value was noted to be 11.6 BNP 611 Optimize antianginal medication Physical Exam Narrative: Awake and alert Laying supine Currently requiring 3 L GCS 15 Pleasant cough No active chest pain Discharge Data Studies Completed and Pending Completed Studies During Hospitalization Category Date Time Status CT angio chest PE protcl [id number] Urgent Cat Scan 04/14/23 01:[address] thoracic spin wo con* [id number] Stat Cat Scan 04/14/23 02:58 Completed Sestamibi Stress Test Request Routine Exams 04/14/23 11:04 Draft XR chest 1V portable [id number] Stat Exams 04/14/23 00:19 Completed NM leah perf SPECT r/s* [id number] Routine Nuc Med 04/15/23 08:00 Completed CV. echo complete* [id number] Stat Ultrasound 04/14/23 02:53 Completed Pending at discharge Category Date Time Status Blood Cultures ([facility]) Routine Lab 04/14/23 01:22 Received Blood Cultures ([facility]) Routine Lab 04/14/23 01:24 Received Sputum Culture and Gram Stain Stat Lab 04/14/23 02:53 Uncollected Radiology Impressions Chest X-Ray 04/14/23 00:19 IMPRESSION: Large opacities in the right perihilar station extending laterally and right infrahilar station. Chest CTA 04/14/23 01:50 IMPRESSION: There is no evidence for acute pulmonary embolism. Relatively poor enhancement of the right upper lobe pulmonary arteries likely due to encasement and obstruction by lymphadenopathy. Perihilar consolidations noted on the right. Right pleural effusion. Granulomatous disease in the chest and upper abdomen. Other than mild enlargement of the right pleural effusion, there is no significant change from the prior examination. Thoracic Spine CT 04/14/23 02:58 IMPRESSION: Dextroscoliosis of the thoracic spine. Otherwise no acute process. If there is clinical suspicion for metastatic disease, consider PET-CT or MRI of the thoracic spine with and without intravenous contrast. Laboratory Results WBC 8.75 10^3/uL (3.29-11.43) 04/15/23 05:30 RBC 2.68 10^6/uL (3.85-5.65) L 04/15/23 05:30 Hgb 8.60 g/dL (11.27-16.99) L 04/15/23 05:30 Hct 26.5 % (37-53) L 04/15/23 05:30 MCV 98.9 fl (82-101) 04/15/23 05:30 MCH 32.1 pg (27-33) 04/15/23 05:30 MCHC 32.5 g/dL (30-55) 04/15/23 05:30 RDW 16.4 % (12.1-15.1) H 04/15/23 05:30 Plt Count 136 10^3/cmm (157-399) L D 04/15/23 05:30 MPV 9.9 fL (7.4-10.4) 04/15/23 05:30 Neut % (Auto) 85.5 % 04/15/23 05:30 Lymph % (Auto) 7.5 % 04/15/23 05:30 [place] % (Auto) 3.4 % 04/15/23 05:30 Eos % (Auto) 0.3 % 04/15/23 05:30 Baso % (Auto) 0.7 % 04/15/23 05:30 Neut # (Auto) 7.47 10^3/uL (1.8-7.7) 04/15/23 05:30 Lymph # (Auto) 0.7 10^3/uL (0.8-4.8) L 04/15/23 05:30 [place] # (Auto) 0.3 10^3/uL (0.2-0.9) 04/15/23 05:30 Eos # (Auto) 0.0 10^3/uL (0.0-0.8) 04/15/23 05:30 Baso # (Auto) 0.1 10^3/uL (0.0-0.1) 04/15/23 05:30 Nucleated RBC % (auto) 0 % 04/15/23 05:30 Nucleated RBCs # 0.0 /100WBC 04/15/23 05:30 PT 13.00 SECONDS (12.1-14.9) 04/14/23 00:39 INR 0.96 (0.8-1.2) 04/14/23 00:39 APTT 29.7 SECONDS (23.9-36.7) D 04/14/23 04:31 Sodium 135 mmol/L (136-145) L 04/15/23 05:30 Potassium 4.6 mmol/L (3.5-5.1) 04/15/23 05:30 Chloride 101 mmol/L (98-107) 04/15/23 05:30 Carbon Dioxide 24 mmol/L (22-29) 04/15/23 05:30 Anion Gap 14.6 (5-19) 04/15/23 05:30 BUN 22 mg/dL (8-23) 04/15/23 05:30 Creatinine 1.1 mg/dL (0.7-1.2) 04/15/23 05:30 GFR Calculation 66.6 mL/min (90-130) L 04/15/23 05:30 Glucose 104 mg/dL (65-115) 04/15/23 05:30 Calculated Osmolality 284 mOsm/kg (285-295) L 04/15/23 05:30 Lactic Acid 1.6 mmol/L (0.5-2.2) 04/14/23 00:39 Calcium 8.6 mg/dL (8.5-10.5) 04/15/23 05:30 Total Bilirubin 0.5 mg/dL (0.15-1.2) 04/14/23 00:39 AST 23 U/L (0-40) 04/14/23 00:39 ALT 17 U/L (0-41) 04/14/23 00:39 Alkaline Phosphatase 146 U/L (40-130) H 04/14/23 00:39 Troponin T Baseline 12 ng/L (0-15) 04/14/23 00:39 Troponin T 120 Minute 10.99 ng/L (0-15) 04/14/23 02:37 Delta Troponin T -1.01 ABS# (0-10) L 04/14/23 02:37 Troponin T Hi Sens 6Hr 11.62 ng/L (0-15) 04/14/23 06:27 Troponin T Hi Sens 6Hr Delta -0.38 ng/L (0-12) L 04/14/23 06:27 C-Reactive Protein 9.4 mg/L (0.0-4.9) H 04/14/23 00:39 NT-Pro-B Natriuret Pep 611 pg/mL (0-125) H 04/14/23 00:39 Total Protein 6.5 g/dL (6.6-8.7) L 04/14/23 00:39 Albumin 4.0 g/dL (3.5-5.2) 04/14/23 00:39 Globulin 2.5 g/dL (1.3-4.6) 04/14/23 00:39 Procalcitonin 0.10 ng/mL (0-0.5) 04/14/23 00:39 TSH 0.99 uIU/mL (0.27-4.20) 04/14/23 02:37 Adenovirus (PCR) Not detected (NOT DETECT) 04/14/23 01:53 C. pneumoniae DNA (PCR) Not detected (NOT DETECT) 04/14/23 01:53 Coronavirus 229E (PCR) Not detected (NOT DETECT) 04/14/23 01:53 Human Metapneumovir PCR Not detected (NOT DETECT) 04/14/23 01:53 Influenza A (H1) PCR Not detected (NOT DETECT) 04/14/23 01:53 Influ A (H1/09) PCR Not detected (NOT DETECT) 04/14/23 01:53 Influenza A (H3) PCR Not detected (NOT DETECT) 04/14/23 01:53 Influenza Type A (PCR) Not detected (NOT DETECT) 04/14/23 01:53 Influenza Type B (PCR) Not detected (NOT DETECT) 04/14/23 01:53 M. pneumoniae (PCR) Not detected (NOT DETECT) 04/14/23 01:53 Parainfluenza 1 (PCR) Not detected (NOT DETECT) 04/14/23 01:53 Parainfluenza 2 (PCR) Not detected (NOT DETECT) 04/14/23 01:53 Parainfluenza 3 (PCR) Not detected (NOT DETECT) 04/14/23 01:53 Parainfluenza 4 (PCR) Not detected (NOT DETECT) 04/14/23 01:53 RSV Type A (PCR) Not detected (NOT DETECT) 04/14/23 01:53 RSV Type B (PCR) Not detected (NOT DETECT) 04/14/23 01:53 Entero/Rhino (PCR) Not detected (NOT DETECT) 04/14/23 01:53 SARS-CoV-2 (PCR) Not detected (NOT DETECT) 04/14/23 01:53 Vitals Last Vital Signs Temp 98.1 F 04/15/23 08:00 Pulse 80 04/15/23 08:00 Resp 16 04/15/23 08:00 BP 110/69 04/15/23 08:00 Pulse Ox 85 L 04/15/23 08:46 O2 Del Method Nasal Cannula 04/15/23 08:00 O2 Flow Rate 3 04/15/23 08:46 Discharge Plan Discharge Patient Disposition: Home Condition: Fair Prescriptions: New furosemide [Lasix] 20 mg tablet 20 mg PO DAILY PRN (Reason: Weight gain more than 3 pounds in a day) Qty: 60 0RF levofloxacin 750 mg tablet 750 mg PO DAILY 7 Days Qty: 7 0RF potassium chloride 10 mEq tablet extended release 10 meq PO DAILY PRN (Reason: Only take when you do take Lasix) Qty: 30 0RF Rx Instructions: Only when you take Lasix albuterol sulfate 90 mcg/actuation HFA aerosol inhaler 2 inh inhalation Q8H PRN (Reason: shortness of breath or wheezing) Qty: 6.7 3RF metoprolol tartrate 25 mg tablet 12.5 mg PO BID Qty: 60 3RF Continued Nitrostat 0.4 mg tablet, sublingual 0.4 mg SUBLINGUAL Q5M PRN (Reason: Chest Pain) Qty: 25 0RF Rx Instructions: do not exceed 3 doses per episode tizanidine 2 mg tablet 2 mg PO Q8H PRN (Reason: muscle spasticity) Qty: 90 5RF acetaminophen [Pain Relief (acetaminophen)] 650 mg tablet extended release 650 mg PO Q8H sertraline [Zoloft] 25 mg tablet 25 mg PO DAILY 90 Days Qty: 90 2RF omeprazole 20 mg capsule,delayed release(DR/EC) 20 mg PO QAM 90 Days Qty: 90 3RF aspirin 81 mg tablet,delayed release (DR/EC) 81 mg PO QAM ferrous sulfate 325 mg (65 mg iron) tablet 325 mg PO DAILY cholecalciferol (vitamin D3) 125 mcg (5,000 unit) capsule 125 mcg PO DAILY mecobalamin (vitamin B12) 500 mcg tablet,chewable 500 mcg PO DAILY ascorbic acid (vitamin C) 1,000 mg capsule 1 g PO DAILY Centrum Minis Men 50 Plus [id number] mcg tablet 1 tab PO DAILY fluticasone propionate 50 mcg/actuation spray,suspension 1 spray intranasal Q12H Qty: 16 11RF Rx Instructions: administer into each nostril prochlorperazine maleate [Compazine] 10 mg tablet 10 mg PO Q4H PRN (Reason: Mild Nausea) Qty: 30 3RF ondansetron HCl 4 mg tablet 4 mg PO QID PRN (Reason: Nausea/vomiting) Qty: 30 3RF lorazepam 1 mg tablet 0.5 - 1 mg PO Q6H PRN (Reason: Severe Nausea) Qty: 30 3RF Discontinued ibuprofen 200 mg capsule 200 mg PO Q6H PRN (Reason: Pain) Patient Instructions: Opioid Safety Discharge Attestations Time Spent in Discharge Care*: greater than 30 min Quality Metrics Clinical Quality Measures [ No reported AMI, CVA or VTE this stay] Coding Level of Care Code Acute Code for [facility] Diagnoses Acute hypoxic respiratory failure J96.01 Small cell lung cancer C34.90 Pneumonia J18.9 Chest pain R07.9
[2023-04-15] MEDS: ipratropium-albuterol 3 mL Neb INHALATION (11:14)
[2023-04-15] MEDS: morphine 4 mg/mL SDV 1 mL 2 MG IVP (12:13)
--- NOTE | 2023-04-15 12:39 | PC.NURSE ---
Discharge Note Patient discharged to home via private vehicle accompanied by . Discharge instructions reviewed with patient and/or provider relations representative. Mobile pharmacy medications and/or prescriptions provided. Belongings/home medications returned.
== END 2023-04-15 14:43 | disposition home or self-care (01) | DRG 193 ==
LOC: ER 02:40 → MEDSURG 03:22
PROVIDERS: Admitting Provider Family Medicine; Emergency Provider Emergency Medicine; Visit Provider Internal Medicine
DX: J18.9 Pneumonia, unspecified organism (principal); J96.01 Acute respiratory failure with hypoxia; D84.821 Immunodeficiency due to drugs; J90 Pleural effusion, not elsewhere classified; C34.2 Malignant neoplasm of middle lobe, bronchus or lung; C78.89 Secondary malignant neoplasm of other digestive organs; C79.71 Secondary malignant neoplasm of right adrenal gland; Z87.891 Personal history of nicotine dependence; I25.10 Atherosclerotic heart disease of native coronary artery without angina pectoris; Z95.5 Presence of coronary angioplasty implant and graft; K21.9 Gastro-esophageal reflux disease without esophagitis; I10 Essential (primary) hypertension; I25.2 Old myocardial infarction; J44.9 Chronic obstructive pulmonary disease, unspecified; T45.1X5A Adverse effect of antineoplastic and immunosuppressive drugs, initial encounter; R59.0 Localized enlarged lymph nodes; Z95.828 Presence of other vascular implants and grafts
CPT/HCPCS: 36415; 36591; 71045; 71275; 72128; 78452; 80048; 80053; 83605; 83880; 84145; 84443; 84484; 85025; 85610; 85730; 86140; 87040; 87486; 87581; 87633; 93005; 93017; 93306; 94640; 94664; 94760; 96365; 96367; 96372; 96375; 96376; 99285; A9500; C9113; J1650; J2270; J2405; J2543; J2785; J3370; J7120; Q9967

== ENCOUNTER 2023-04-30 09:04 | Oncology outpatient (recurring) (ONCR) | payer MEDICARE, SELFPAY ==
[2023-04-30 09:47] LABS: Basophils # 0.1 10^3/uL (0.0-0.1); Basophils % 0.8 %; Eosinophils # 0.1 10^3/uL (0.0-0.8); Eosinophils % 0.7 %; Lymphocytes # 1.2 10^3/uL (0.8-4.8); Lymphocytes % 15.2 %; Mean Corpuscular HGB Conc 33.2 g/dL (30-55); Mean Corpuscular Hemoglobin 31.4 pg (27-33); Mean Corpuscular Volume 94.4 fl (82-101); Mean Platelet Volume 10.4 fL (7.4-10.4); Monocytes # 1.1 10^3/uL (0.2-0.9); Monocytes % 14.1 %; Neutrophils # 5.22 10^3/uL (1.8-7.7); Neutrophils % 68.9 %; Nucleated Red Blood Cells % 0 %; Platelet Count 317 10^3/cmm (157-399); Red Cell Distribution Width 14.9 % (12.1-15.1); White Blood Count 7.57 10^3/uL (3.29-11.43)
[2023-04-30 10:15] LABS: Alanine Aminotransferase 10 U/L (0-41); Albumin Level 4.2 g/dL (3.5-5.2); Alkaline Phosphatase 137 U/L (40-130); Anion Gap 14.4 (5-19); Aspartate Amino Transferase 19 U/L (0-40); Blood Urea Nitrogen 21 mg/dL (8-23); Calcium 9.3 mg/dL (8.5-10.5); Carbon Dioxide 27 mmol/L (22-29); Chloride 101 mmol/L (98-107); Creatine Phosphokinase 33 U/L (39-308); Globulin 3.1 g/dL (1.3-4.6); Glomerular Filtration Rate 74.3 mL/min (90-130); Glucose 88 mg/dL (65-115); Osmolality Calculated 288 mOsm/kg (285-295); Potassium 4.4 mmol/L (3.5-5.1); Sodium 138 mmol/L (136-145); Total Bilirubin 0.3 mg/dL (0.15-1.2); Total Protein 7.3 g/dL (6.6-8.7)
[2023-04-30] MEDS: sodium chloride 0.9% 250 ML 75 ML IV (12:11)
[2023-04-30] MEDS: palonosetron 0.25 mg/5 mL SDV IVP (12:12)
[2023-04-30] MEDS: LURBINECTEDIN IV (12:43)
[2023-04-30] MEDS: SODIUM CHLORIDE 0.9% IV (12:43)
[2023-04-30] MEDS: pegfilgrastim 6 mg/0.6 mL Kit (onpro) SUBCUT (13:56)
[2023-04-30 14:07] VITALS: BP 110/69; PULSE 92; RESP 17; TEMP 36.8; O2SAT 92
== END 2023-04-30 23:59 | disposition home or self-care (01) ==
PROVIDERS: Nurse Practitioner Family; PCP Family Medicine; Visit Provider Internal Medicine Medical Oncology
DX: C34.01 Malignant neoplasm of right main bronchus; Z51.11 Encounter for antineoplastic chemotherapy; D70.1 Agranulocytosis secondary to cancer chemotherapy; T45.1X5A Adverse effect of antineoplastic and immunosuppressive drugs, initial encounter; Z99.81 Dependence on supplemental oxygen; R06.02 Shortness of breath; Z87.891 Personal history of nicotine dependence; Z92.3 Personal history of irradiation; C79.71 Secondary malignant neoplasm of right adrenal gland; C77.5 Secondary and unspecified malignant neoplasm of intrapelvic lymph nodes; N40.0 Benign prostatic hyperplasia without lower urinary tract symptoms
CPT/HCPCS: 80053; 82550; 85025; 96367; 96372; 96375; 96377; 96413; 99213; J1100; J1642; J2469; J2506; J7050; J9223

== ENCOUNTER 2023-05-21 09:59 | Oncology outpatient (recurring) (ONCR) | payer MEDICARE, SELFPAY ==
[2023-05-21 10:48] LABS: Basophils # 0.1 10^3/uL (0.0-0.1); Basophils % 0.9 %; Eosinophils # 0.1 10^3/uL (0.0-0.8); Eosinophils % 1.1 %; Hematocrit 33.6 % (37-53); Lymphocytes # 1.2 10^3/uL (0.8-4.8); Lymphocytes % 15.3 %; Mean Corpuscular HGB Conc 33.3 g/dL (30-55); Mean Corpuscular Hemoglobin 31.6 pg (27-33); Mean Corpuscular Volume 94.9 fl (82-101); Mean Platelet Volume 10.1 fL (7.4-10.4); Monocytes # 1.2 10^3/uL (0.2-0.9); Monocytes % 14.7 %; Neutrophils # 5.47 10^3/uL (1.8-7.7); Neutrophils % 67.5 %; Nucleated Red Blood Cells % 0 %; Platelet Count 261 10^3/cmm (157-399); Red Blood Count 3.54 10^6/uL (3.85-5.65)
[2023-05-21 11:21] LABS: Alanine Aminotransferase 9 U/L (0-41); Albumin Level 4.2 g/dL (3.5-5.2); Alkaline Phosphatase 123 U/L (40-130); Anion Gap 15.6 (5-19); Aspartate Amino Transferase 17 U/L (0-40); Blood Urea Nitrogen 24 mg/dL (8-23); Calcium 9.2 mg/dL (8.5-10.5); Carbon Dioxide 26 mmol/L (22-29); Chloride 102 mmol/L (98-107); Creatine Phosphokinase 53 U/L (39-308); Globulin 2.8 g/dL (1.3-4.6); Glomerular Filtration Rate 96.1 mL/min (90-130); Glucose 99 mg/dL (65-115); Osmolality Calculated 292 mOsm/kg (285-295); Potassium 4.6 mmol/L (3.5-5.1); Sodium 139 mmol/L (136-145); Total Bilirubin 0.3 mg/dL (0.15-1.2)
[2023-05-21 12:45] LABS: Ferritin 194 ng/mL (30-400); Iron 54 ug/dL (59-158); Lactate Dehydrogenase 162 U/L (135-225); Percent Saturation 19.2 % (20-50); Total Iron Binding Capacity 280 mcg/dl; Unsaturated Iron Binding 226 ug/dL (112-347)
[2023-05-21] MEDS: sodium chloride 0.9% 250 ML 75 ML IV (13:00)
[2023-05-21] MEDS: palonosetron 0.25 mg/5 mL SDV IVP (13:00)
[2023-05-21] MEDS: SODIUM CHLORIDE 0.9% IV (13:37)
[2023-05-21] MEDS: LURBINECTEDIN IV (13:37)
[2023-05-21 14:44] VITALS: BP 108/68; PULSE 82; TEMP 36.3; O2SAT 90
[2023-05-21] MEDS: pegfilgrastim 6 mg/0.6 mL Kit (onpro) SUBCUT (14:51)
== END 2023-05-21 23:59 | disposition home or self-care (01) ==
PROVIDERS: Internal Medicine; Nurse Practitioner Family; PCP Family Medicine; Visit Provider Internal Medicine Medical Oncology
DX: C34.90 Malignant neoplasm of unspecified part of unspecified bronchus or lung (principal); C34.01 Malignant neoplasm of right main bronchus; D69.6 Thrombocytopenia, unspecified; D64.9 Anemia, unspecified; D70.9 Neutropenia, unspecified; Z79.899 Other long term (current) drug therapy
CPT/HCPCS: 80053; 82550; 82728; 83540; 83550; 83615; 84238; 85025; 96367; 96372; 96375; 96377; 96413; 99215; J1100; J1642; J2469; J2506; J7050; J9223

== ENCOUNTER 2023-06-04 14:49 | Emergency (ER) | payer MEDICARE, SELFPAY ==
[2023-06-04 14:57] VITALS: BP 110/72; PULSE 103; RESP 18; TEMP 38; O2SAT 95
--- NOTE | 2023-06-04 15:06 | CTR_ITS ---
PROCEDURE INFORMATION: Exam: CT Chest With Contrast; Diagnostic Exam date and time: 06/04/2023 3:48 PM Age: 67 years old Clinical indication: Other: Lung CA with mets, rlq pain, n/d; Prior surgery; Surgery date: 6+ months; Surgery type: Aaa, stent TECHNIQUE: Imaging protocol: Diagnostic computed tomography of the chest with contrast. Radiation optimization: All CT scans at this facility use at least one of these dose optimization techniques: automated exposure control; mA and/or kV adjustment per patient size (includes targeted exams where dose is matched to clinical indication); or iterative reconstruction. Contrast material: OMNI 350; Contrast volume: 100 ml; Contrast route: INTRAVENOUS (IV); COMPARISON: CT angio chest PE protcl [id number] 04/14/2023 2:51 AM RADIATION DOSE METRICS: Total DLP (mGy-cm): 436.1 FINDINGS: Lungs: There is extensive fibrotic consolidation involving the perihilar portion of the right lung. There is very faint patchy infiltrate involving the left lower lobe. Mildly enlarged lymph nodes involve the subcarinal space of the mediastinum measuring up to 2 cm in diameter. Pleural spaces: A small right pleural effusion is noted. Heart: Unremarkable. No cardiomegaly. No pericardial effusion. Lymph nodes: See Lungs finding. Vasculature: Unremarkable. No aortic aneurysm. Bones/joints: Unremarkable. No acute fracture. Soft tissues: Unremarkable. PROCEDURE INFORMATION: Exam: CT Abdomen And Pelvis With Contrast Exam date and time: 06/04/2023 3:48 PM Age: 67 years old Clinical indication: Other: Lung CA with mets, rlq pain, n/d; Prior surgery; Surgery date: 6+ months; Surgery type: Aaa, stent TECHNIQUE: Imaging protocol: Computed tomography of the abdomen and pelvis with contrast. Radiation optimization: All CT scans at this facility use at least one of these dose optimization techniques: automated exposure control; mA and/or kV adjustment per patient size (includes targeted exams where dose is matched to clinical indication); or iterative reconstruction. Contrast material: OMNI 350; Contrast volume: 100 ml; Contrast route: INTRAVENOUS (IV); COMPARISON: CT chest abdpel w/*[id number] 02/25/2023 10:58 AM RADIATION DOSE METRICS: Total DLP (mGy-cm): 649.5 FINDINGS: Lungs: Lung bases are clear. No pleural effusion. Liver: Normal. No mass. Gallbladder and bile ducts: Normal. No calcified stones. No ductal dilation. Pancreas: Normal. No ductal dilation. Spleen: Normal. No splenomegaly. Adrenal glands: Normal. No mass. Kidneys and ureters: Normal. No hydronephrosis. Stomach and bowel: Unremarkable. No obstruction. No mucosal thickening. Appendix: No evidence of appendicitis. Intraperitoneal space: Unremarkable. No free air. No significant fluid collection. Vasculature: There is a widely patent, intact aortic stent graft in the abdominal aorta. Aneurysm measures 4.7 cm. Lymph nodes: Unremarkable. No enlarged lymph nodes. Urinary bladder: Unremarkable as visualized. Reproductive: The prostate gland is abnormally enlarged. Bones/joints: Unremarkable. No acute fracture. Soft tissues: Unremarkable. CT/CT chest abdpel w/*[id number] IMPRESSION: I see no evidence of interval disease progression. There are stable pulmonary and pleural findings. Stable mediastinal adenopathy. IMPRESSION: 1. There is no evidence of active neoplastic disease. 2. Prostate enlargement again noted 3. Stable abdominal aortic aneurysm
--- NOTE | 2023-06-04 15:07 | ED_ITS ---
HPI - Abdominal Pain 2 General: Chief Complaint: Abdominal Pain Stated Complaint: right side abd pain Time Seen by Provider: 06/04/23 15:02 Source: patient Mode of arrival: ambulatory Limitations: no limitations History of Present Illness: 67-year-old male with history of small c ell carcinoma he is currently on chemo he states that this morning he started having right lower quadrant pain its worsened much worse with ambulation and palpation. He also has a fever here of 100.4 he denies any vomiting or diarrhea or cough. Associated Symptoms: Denies chills, diarrhea, dysuria, fever(s), nausea and vomiting Review of Systems 2 Const: Denies: fever(s), chills, body aches or change in appetite ENMT: Denies: throat pain or dental pain Card: Denies: chest pain Resp: Denies: dyspnea GI: Reports: abdominal pain; Denies: nausea, vomiting or diarrhea : Denies: dysuria Musc: Denies: neck pain or back pain Skin/Breast: Denies: rash Neuro: Denies: headache(s) PFSH ED 2 PFSH: Medical History Pneumonia Small cell lung cancer Port-A-Cath in place Neutropenia Chronic back pain GERD (gastroesophageal reflux disease) Coronary artery disease Small cell lung cancer, right middle lobe Hypertension Abdominal aortic aneurysm Congenital umbilical hernia Carpal tunnel syndrome on both sides Past heart attack COPD (chronic obstructive pulmonary disease) Surgical History Hx of umbilical hernia repair History of tonsillectomy and adenoidectomy History of bilateral carpal tunnel release S/P AAA repair using bifurcation graft History of endovascular stent graft for abdominal aortic aneurysm (AAA) History of heart artery stent S/P rotator cuff repair Family History Family/Other Cancer Father CAD (coronary artery disease) Stroke Brother CAD (coronary artery disease) Brother CAD (coronary artery disease) Diabetes Sister CAD (coronary artery disease) Cancer Chronic kidney disease (CKD) Diabetes Sister Cancer Diabetes Mother Stroke Other Hyperlipidemia Hypertension Psychiatric illness Denies family history of Clotting disorder Dementia Suicide Anesthesia complication Bleeding disorder Lung disease Social History Smoking and tobacco/nicotine status: former use of tobacco/nicotine (smoked x 50+ years) Quit status (tobacco/nicotine): has quit using Year quit tobacco: 2021 Former quit date comment: December 2021 Alcohol intake: never Substance/Drug Use: never Physical Exam 2 Const: COMMON NORMALS: no acute distress, patient oriented x3 and healthy appearing HENMT: COMMON NORMALS: normocephalic and atraumatic HEAD & SCALP: n ormocephalic and atraumatic Neck/C-Spine: COMMON NORMALS: full ROM and supple Chest: COMMONS NORMALS: normal inspection of the chest Resp: COMMON NORMALS: normal respiratory effort, No retractions, No use of accessory muscles and clear to auscultation bilaterally AUSCULTATION: clear to auscultation bilaterally Cardio: COMMON NORMALS: regular rate, regular rhythm and No murmurs present (Cardio) RATE: regular rate RHYTHM: regular rhythm GI: COMMON NORMALS: Normal to inspection, nondistended, normoactive bowel sounds present, Soft to palpation and no masses PALPATION: Yes Soft to palpation and Yes Tenderness to palpation present (GI) Details: RLQ Extremity: COMMON NORMALS: normal to inspection and full ROM Neuro: COMMON NORMALS: patient oriented x3, moves all extremities and no focal motor deficits Psych: COMMON NORMALS: mental status grossly normal, Normal thought process present and cooperative THOUGHT PROCESS: Normal thought process present Skin: COMMON NORMALS: no rashes or lesions noted and no wounds GENERAL SKIN EXAM: no rashes or lesions noted Course 2 Vital Signs: Vital signs: Vital Signs Temperature 100.4 F H 06/04/23 14:57 Pulse Rate 103 H 06/04/23 14:57 Respiratory Rate 16 06/04/23 16:06 Blood Pressure 110/72 06/04/23 14:57 Pulse Oximetry 93 06/04/23 16:06 Oxygen Delivery Me thod Nasal Cannula 06/04/23 14:57 Oxygen Flow Rate 3 06/04/23 14:57 MDM - Abdominal Pain Medical Decision Making Patient presents with fever along with abdominal pain is abdominal pain is improved here CT chest abdomen is all normal he does have a leukocytosis as well. I recommended admission due to his fever and high white count along with his history of cancer on chemo he stated he has been in the hospital multiple times and he does not want to stay and refused to stay. He is well-appearing here in feels improved did give him an IV dose of Levaquin we will place him on Levaquin will follow blood cultures he is follow-up with his oncologist return if worsening he understands agrees plan Medical Records I reviewed the patient's medical records. Lab Data I reviewed the patient's lab results. 06/04/23 15:15 06/04/23 15:15 Labs/Radiology: Radiology Impressions Chest/Abdomen/Pelvis CT 06/04/23 15:06 IMPRESSION: I see no evidence of interval disease progression. There are stable pulmonary and pleural findings. Stable mediastinal adenopathy. IMPRESSION: 1. There is no evidence of active neoplastic disease. 2. Prostate enlargement again noted 3. Stable abdominal aortic aneurysm Laboratory Results WBC 15.86 10^3/uL (3.29-11.43) H 06/04/23 15:15 RBC 3.53 10^6/uL (3.85-5.65) L 06/04/23 15:15 Hgb 11.20 g/dL (11.27-16.99) L 06/04/23 15:15 Hct 33.4 % (37-53) L 06/04/23 15:15 MCV 94.6 fl (82-101) 06/04/23 15:15 MCH 31.7 pg (27-33) 06/04/23 15:15 MCHC 33.5 g/dL (30-55) 06/04/23 15:15 RDW 16.3 % (12.1-15.1) H 06/04/23 15:15 Plt Count 149 10^3/cmm (157-399) L 06/04/23 15:15 MPV 11.3 fL (7.4-10.4) H 06/04/23 15:15 Neut % (Auto) 78.1 % 06/04/23 15:15 Lymph % (Auto) 8.3 % 06/04/23 15:15 [place] % (Auto) 12.5 % 06/04/23 15:15 Eos % (Auto) 0.1 % 06/04/23 15:15 Baso % (Auto) 0.3 % 06/04/23 15:15 Neut # (Auto) 12.39 10^3/uL (1.8-7.7) H 06/04/23 15:15 Lymph # (Auto) 1.3 10^3/uL (0.8-4.8) 06/04/23 15:15 [place] # (Auto) 2.0 10^3/uL (0.2-0.9) H 06/04/23 15:15 Eos # (Auto) 0.0 10^3/uL (0.0-0.8) 06/04/23 15:15 Baso # (Auto) 0.0 10^3/uL (0.0-0.1) 06/04/23 15:15 Nucleated RBC % (auto) 0 % 06/04/23 15:15 Nucleated RBCs # 0.0 /100WBC 06/04/23 15:15 Sodium 134 mmol/L (136-145) L 06/04/23 15:15 Potassium 3.9 mmol/L (3.5-5.1) 06/04/23 15:15 Chloride 99 mmol/L (98-107) 06/04/23 15:15 Carbon Dioxide 21 mmol/L (22-29) L 06/04/23 15:15 Anion Gap 17.9 (5-19) 06/04/23 15:15 BUN 22 mg/dL (8-23) 06/04/23 15:15 Creatinine 1.0 mg/dL (0.7-1.2) 06/04/23 15:15 GFR Calculation 74.3 mL/min (90-130) L 06/04/23 15:15 Glucose 105 mg/dL (65-115) 06/04/23 15:15 Calculated Osmolality 282 mOsm/kg (285-295) L 06/04/23 15:15 Lactic Acid 0.9 mmol/L (0.5-2.2) 06/04/23 15:15 Calcium 9.6 mg/dL (8.5-10.5) 06/04/23 15:15 Total Bilirubin 0.8 mg/dL (0.15-1.2) 06/04/23 15:15 AST 14 U/L (0-40) 06/04/23 15:15 ALT 9 U/L (0-41) 06/04/23 15:15 Alkaline Phosphatase 132 U/L (40-130) H 06/04/23 15:15 Total Protein 7.2 g/dL (6.6-8.7) 06/04/23 15:15 Albumin 4.0 g/dL (3.5-5.2) 06/04/23 15:15 Globulin 3.2 g/dL (1.3-4.6) 06/04/23 15:15 Lipase 14 U/L (13-60) 06/04/23 15:15 Urine Color Yellow (Yellow) 06/04/23 16:40 Urine Appearance Clear (CLEAR) 06/04/23 16:40 Urine pH 5 (5-7) 06/04/23 16:40 Ur Specific [place] 1.010 (1.005-1.030) 06/04/23 16:40 Urine Protein Neg (Negative) 06/04/23 16:40 Urine Glucose (UA) Norm (Normal) 06/04/23 16:40 Urine Ketones Negative (Negative) 06/04/23 16:40 Urine Blood Neg (Negative) 06/04/23 16:40 Urine Nitrate Negative (Negative) 06/04/23 16:40 Urine Bilirubin Neg (Negative) 06/04/23 16:40 Urine Urobilinogen Norm mg/dL (Negative) 06/04/23 16:40 Ur Leukocyte Esterase Negative (Negative) 06/04/23 16:40 All radiology interpretation(s) finalized by discharge Discharge Plan Discharge Patient Disposition: Home Clinical Impression: Abdominal pain, Fever Condition: Stable Prescriptions: New levofloxacin 750 mg tablet 750 mg PO DAILY 7 Days Qty: 7 0RF No Action Nitrostat 0.4 mg tablet, sublingual 0.4 mg SUBLINGUAL Q5M PRN (Reason: Chest Pain) Qty: 25 0RF Rx Instructions: do not exceed 3 doses per episode tizanidine 2 mg tablet 2 mg PO Q8H PRN (Reason: muscle spasticity) Qty: 90 5RF acetaminophen [Pain Relief (acetaminophen)] 650 mg tablet extended release 650 mg PO Q8H sertraline [Zoloft] 25 mg tablet 25 mg PO DAILY 90 Days Qty: 90 2RF omeprazole 20 mg capsule,delayed release(DR/EC) 20 mg PO QAM 90 Days Qty: 90 3RF aspirin 81 mg tablet,delayed release (DR/EC) 81 mg PO QAM ferrous sulfate 325 mg (65 mg iron) tablet 325 mg PO DAILY cholecalciferol (vitamin D3) 125 mcg (5,000 unit) capsule 125 mcg PO DAILY mecobalamin (vitamin B12) 500 mcg tablet,chewable 500 mcg PO DAILY ascorbic acid (vitamin C) 1,000 mg capsule 1 g PO DAILY Centrum Minis Men 50 Plus [id number] mcg tablet 1 tab PO DAILY fluticasone propionate 50 mcg/actuation spray,suspension 1 spray intranasal Q12H Qty: 16 11RF Rx Instructions: administer into each nostril prochlorperazine maleate [Compazine] 10 mg tablet 10 mg PO Q4H PRN (Reason: Mild Nausea) Qty: 30 3RF ondansetron HCl 4 mg tablet 4 mg PO QID PRN (Reason: Nausea/vomiting) Qty: 30 3RF lorazepam 1 mg tablet 0.5 - 1 mg PO Q6H PRN (Reason: Severe Nausea) Qty: 30 3RF furosemide [Lasix] 20 mg tablet 20 mg PO DAILY PRN (Reason: Weight gain more than 3 pounds in a day) Qty: 60 0RF potassium chloride 10 mEq tablet extended release 10 meq PO DAILY PRN (Reason: Only take when you do take Lasix) Qty: 30 0RF Rx Instructions: Only when you take Lasix albuterol sulfate 90 mcg/actuation HFA aerosol inhaler 2 inh inhalation Q8H PRN (Reason: shortness of breath or wheezing) Qty: 6.7 3RF Discharge Orders: Discharge ED (Routine); Ordered 06/04/23 Ordered By: Nicol Beasley Referrals: Lianet Hannah MD [Primary Care Provider] - Discharge Diet: Advance as tolerated Discharge Activity: Resume usual activity Patient Instructions: Fever in Adults (ED), Abdominal Pain (ED) Coding Level of Care Code ED 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
--- NOTE | 2023-06-04 15:09 | XR_ITS ---
WS: [id number] Portable AP upright chest, 06/04/2023 Clinical Data: fever Comparison: Portable chest, 04/14/2023 Findings: The right hilar opacity extending into the lateral aspect of the right lung remains the kasia e. The right diaphragm is elevated. The heart is at the upper limits of normal. The left lung shows m inimal opacity over the surface of the diaphragm. No nodules, masses or effusions are seen. The aorti c arch is tortuous. No pneumothorax is seen. There is an infusion catheter ending in the superior danielle a cava at its superior aspect. There are orthopedic anchors in the left humeral head. Impression: 1. No change in right hilar opacity and peripheral right lung opacity. 2. Minimal opacity over surface of the left diaphragm which could represent pneumonia and/or atelecta sis. 3. No change in atherosclerosis and mild cardiomegaly.
[2023-06-04 15:24] LABS: Basophils % 0.3 %; Eosinophils % 0.1 %; Hematocrit 33.4 % (37-53); Lymphocytes # 1.3 10^3/uL (0.8-4.8); Lymphocytes % 8.3 %; Mean Corpuscular HGB Conc 33.5 g/dL (30-55); Mean Corpuscular Hemoglobin 31.7 pg (27-33); Mean Corpuscular Volume 94.6 fl (82-101); Mean Platelet Volume 11.3 fL (7.4-10.4); Monocytes % 12.5 %; Neutrophils # 12.39 10^3/uL (1.8-7.7); Neutrophils % 78.1 %; Nucleated Red Blood Cells % 0 %; Platelet Count 149 10^3/cmm (157-399); Red Blood Count 3.53 10^6/uL (3.85-5.65); Red Cell Distribution Width 16.3 % (12.1-15.1); White Blood Count 15.86 10^3/uL (3.29-11.43)
--- NOTE | 2023-06-04 15:36 | PC.PHAR ---
PT ONLY ABLE TO TAKE HIS TYLENOL TODAY DUE TO NAUSEA. 06/04/23
[2023-06-04 15:44] LABS: Alanine Aminotransferase 9 U/L (0-41); Alkaline Phosphatase 132 U/L (40-130); Anion Gap 17.9 (5-19); Aspartate Amino Transferase 14 U/L (0-40); Blood Urea Nitrogen 22 mg/dL (8-23); Calcium 9.6 mg/dL (8.5-10.5); Carbon Dioxide 21 mmol/L (22-29); Chloride 99 mmol/L (98-107); Creatinine Clr Calc Pharmacy 74.1332; Globulin 3.2 g/dL (1.3-4.6); Glomerular Filtration Rate 74.3 mL/min (90-130); Glucose 105 mg/dL (65-115); Lipase 14 U/L (13-60); Osmolality Calculated 282 mOsm/kg (285-295); Potassium 3.9 mmol/L (3.5-5.1); Sodium 134 mmol/L (136-145); Total Bilirubin 0.8 mg/dL (0.15-1.2); Total Protein 7.2 g/dL (6.6-8.7)
[2023-06-04 15:45] LABS: Lactic Sepsis W/Reflex 0.9 mmol/L (0.5-2.2)
[2023-06-04] MEDS: iohexol 350 mg/mL 500 mL Btl (per mL) IV (15:49)
[2023-06-04] MEDS: sodium chloride 0.9% 1,000 ML 999 ML IV (16:05)
[2023-06-04 16:06] VITALS: RESP 16; O2SAT 93
[2023-06-04] MEDS: morphine 4 mg/mL SDV 1 mL IVP (16:06)
[2023-06-04] MEDS: ondansetron 2 mg/ML SDV 2 mL 4 MG IVP (16:06)
[2023-06-04] MEDS: levofloxacin-dextrose 5 % 750 MG/150 ML PREMIX 100 MG IV (16:35)
[2023-06-04 17:02] LABS: Add Urine Microscopic? NO; Charge for UA Resulting for Rev
[2023-06-04 17:07] LABS: Bilirubin Urine Neg (Negative); Blood Urine Neg (Negative); Glucose Urine UA Norm (Normal); Ketones Urine Negative (Negative); Leukocyte Esterase Urine Negative (Negative); Nitrate Urine Negative (Negative); Protein Urine Neg (Negative); Urine Appearance Clear (CLEAR); Urine Color Yellow (Yellow); Urobilinogen Urine Norm (Negative); pH Urine 5 (5-7)
--- NOTE | 2023-06-04 19:15 | PC.NURSE ---
pts port was accessed during visit. location: left upper chest. sterile technique used. de-accessed prior to leaving facility.
[2023-06-04 19:56] VITALS: BP 91/69; PULSE 88; O2SAT 93
== END 2023-06-04 19:57 | disposition home or self-care (01) ==
PROVIDERS: Emergency Provider Emergency Medicine; PCP Family Medicine
DX: R10.31 Right lower quadrant pain (principal); R50.9 Fever, unspecified; Z79.82 Long term (current) use of aspirin; Z87.891 Personal history of nicotine dependence; Z85.118 Personal history of other malignant neoplasm of bronchus and lung; I25.10 Atherosclerotic heart disease of native coronary artery without angina pectoris; I10 Essential (primary) hypertension; J44.9 Chronic obstructive pulmonary disease, unspecified
CPT/HCPCS: 36415; 71045; 71260; 74177; 80053; 81003; 83605; 83690; 85025; 87040; 96365; 96366; 96375; 99285; J1642; J1956; J2270; J2405; J7030; Q9967

== ENCOUNTER 2023-06-11 10:00 | Oncology outpatient (recurring) (ONCR) | payer MEDICARE, SELFPAY ==
[2023-06-11 10:27] LABS: Basophils # 0.1 10^3/uL (0.0-0.1); Basophils % 0.6 %; Eosinophils # 0.1 10^3/uL (0.0-0.8); Eosinophils % 0.8 %; Mean Corpuscular HGB Conc 32.9 g/dL (30-55); Mean Corpuscular Hemoglobin 31.5 pg (27-33); Mean Corpuscular Volume 95.7 fl (82-101); Mean Platelet Volume 10.1 fL (7.4-10.4); Monocytes # 1.2 10^3/uL (0.2-0.9); Monocytes % 13.9 %; Neutrophils # 6.06 10^3/uL (1.8-7.7); Neutrophils % 72.2 %; Nucleated Red Blood Cells % 0 %; Platelet Count 254 10^3/cmm (157-399); Red Blood Count 3.24 10^6/uL (3.85-5.65); Red Cell Distribution Width 15.5 % (12.1-15.1)
[2023-06-11 10:45] LABS: Alanine Aminotransferase 9 U/L (0-41); Albumin Level 3.6 g/dL (3.5-5.2); Alkaline Phosphatase 107 U/L (40-130); Aspartate Amino Transferase 17 U/L (0-40); Blood Urea Nitrogen 14 mg/dL (8-23); Calcium 9.3 mg/dL (8.5-10.5); Carbon Dioxide 26 mmol/L (22-29); Chloride 104 mmol/L (98-107); Creatine Phosphokinase 28 U/L (39-308); Globulin 2.7 g/dL (1.3-4.6); Glomerular Filtration Rate 83.9 mL/min (90-130); Glucose 137 mg/dL (65-115); Lactate Dehydrogenase 114 U/L (135-225); Osmolality Calculated 293 mOsm/kg (285-295); Sodium 140 mmol/L (136-145); Total Bilirubin 0.4 mg/dL (0.15-1.2); Total Protein 6.3 g/dL (6.6-8.7)
[2023-06-11] MEDS: sodium chloride 0.9% 250 ML 75 ML IV (12:49)
[2023-06-11] MEDS: palonosetron 0.25 mg/5 mL SDV IVP (12:50)
[2023-06-11 13:18] LABS: Ferritin 320 ng/mL (30-400); Iron 31 ug/dL (59-158); Percent Saturation 15.5 % (20-50); Thyroid Stimulating Hormone 2.83 uIU/mL (0.27-4.20); Total Iron Binding Capacity 200 mcg/dl; Unsaturated Iron Binding 169 ug/dL (112-347)
[2023-06-11] MEDS: SODIUM CHLORIDE 0.9% IV (13:23)
[2023-06-11] MEDS: LURBINECTEDIN IV (13:23)
[2023-06-11 14:39] LABS: Prostate Specific Antigen Scr 1.81 ng/mL (0-4)
[2023-06-11 14:40] LABS: Folate Level > 20.0 ng/mL (4.5-32.2)
[2023-06-11] MEDS: pegfilgrastim 6 mg/0.6 mL Kit (onpro) SUBCUT (14:49)
[2023-06-16 12:09] LABS: Soluble Transferrin Receptor 1.29 mg/L (0.76-1.76)
== END 2023-06-11 23:59 | disposition home or self-care (01) ==
PROVIDERS: Internal Medicine; PCP Family Medicine; Visit Provider Internal Medicine Medical Oncology
DX: C34.90 Malignant neoplasm of unspecified part of unspecified bronchus or lung (principal); C34.01 Malignant neoplasm of right main bronchus; Z53.9 Procedure and treatment not carried out, unspecified reason; Z79.899 Other long term (current) drug therapy; Z12.5 Encounter for screening for malignant neoplasm of prostate; E78.5 Hyperlipidemia, unspecified
CPT/HCPCS: 80053; 82550; 82728; 82746; 83540; 83550; 83615; 84238; 84443; 85025; 96367; 96377; 96413; 99215; G0103; J1100; J1642; J2469; J2506; J7050; J9223

== ENCOUNTER 2023-06-13 14:03 | Outpatient (CLI) | payer MEDICARE, SELFPAY ==
--- NOTE | 2023-06-13 14:30 | MR_ITS ---
WS: [id number] MRI BRAIN WITH AND WITHOUT CONTRAST HISTORY: small cell lung cancer COMPARISON: 12/31/2022 TECHNIQUE: Multiplanar imaging performed through the brain with MultiHance 20 ml's IV. No acute infarct. New enhancing cerebral masses are identified since 12/31/2022 highly suspicious for metastatic sites. At least 3 masses are identified. The largest measures 13 x 6 mm in the anterior RIGHT temporal lobe . Additional 5 mm enhancing cortical based mass in the parafalcine RIGHT frontal lobe. 7 mm enhancing mass posterior LEFT parietal cortex. There are a few additional very tiny areas of scattered nodules and enhancement within the brain which may be vessels on end or additional very early metastatic sit es. No hemorrhage. Additional mild to moderate small vessel ischemic changes. Ventricles and extra-axial spaces are normal. Clivus and pituitary gland are normal. Visualized posterior fossa and brainstem are also normal. Paranasal sinuses: Well aerated with no significant disease. Mastoid air cells: Normal. Calvarium and scalp: Nonenhancing nodule in the posterior LEFT occipital region is probably a small s ebaceous cyst. IMPRESSION: 1. New enhancing intracranial mass is highly suspicious for metastatic disease. 2. Intracranial masses x3. The largest in the RIGHT temporal lobe measures 13 x 6 mm. There is an ad ditional 5 mm cortical based mass in the parafalcine RIGHT frontal lobe and a 7 mm mass in the braille teacher ior LEFT parietal cortex. No hemorrhage. 3. Otherwise stable.
[2023-06-13] MEDS: gadobenate dimeglumine 20 mL vial IV (14:46)
== END 2023-06-13 14:04 | disposition home or self-care (01) ==
LOC: RAD 14:03
PROVIDERS: PCP Family Medicine; Visit Provider Internal Medicine
DX: D69.6 Thrombocytopenia, unspecified (principal); D64.9 Anemia, unspecified; D70.9 Neutropenia, unspecified
CPT/HCPCS: 70553; A9577

== ENCOUNTER 2023-07-02 09:30 | Oncology outpatient (recurring) (ONCR) | payer MEDICARE, SELFPAY ==
--- NOTE | 2023-06-16 15:18 | ONCRAD EPV_ITS ---
Radiation Oncology Established Patient Visit Patient: Juan Barajas [id number] : 1955> Age: 67> Sex: Male> Dictated by: Dr. Mounika Bradshaw Date of Service: 06/16/2023 Referring Physician(s) : Anne Diagnosis: C34.10 - Malignant neoplasm of upper lobe, unspecified bronchus or lung, Diagnosed 01/08/2022 (Active) Limited, T4, N2, M0 Brain metastasis: C79.1 Radiotherapy to Date: Course: SVC - Rt Lung, Treatment Site: SCLCa - Rt Lung, Ref. ID: [id number], Energy: 6X, Dose/Fx (cGy): 200, #Fx: , Dose Correction (cGy): 0, Total Dose Delivered (cGy): 4,800, Start Date: 02/05/2022, End Date: 03/19/2022, Elapsed Days: 42 Current History: Patient has completed the initial radiation and chemotherapy in March 2022. He subsequently within 2 to 3 months had developed metastatic disease in the pancreas and periaortic region. He received additional chemotherapy and had scans in the fall which were clear. He had an MRI in November which was also clear. He just last week had additional CTs of the chest abdomen pelvis which were clear but the MRI of his head showed 3 separate lesions. The largest was in the right temporal lobe and it was 13 x 6mm, 1 in the right frontal lobe was 5 mm and the 1 in the left parietal lobe was 7 mm. He is here today to discuss radiation for small cell carcinoma lung with brain metastasis. Current Medications: Tylenol as needed, albuterol, vitamin C, daily aspirin, vitamin D, iron, Nasonex, Lasix, lorazepam, B12, metoprolol, on parasol, ondansetron as needed, potassium, Compazine, Zoloft, tizanidine Allergies: statins. Current Complaints / Review of Systems: . He has begun to have increasing difficulty over the last several months with headaches. These were originally fairly sporadic. He was able to take Tylenol and they would decrease in severity. They have gotten to the point where they are daily. Vital Signs: Performed on 06/16/2023 2:12 PM BMI - 31.325 kg/m2 (high), Height - 67 in, Weight - 200 lbs, Temperature - 98.1 f, Pulse - 85 /min, Respiration - 16 /min, O2 Sat - 91 % (low), Pain - 3 and BP - 101/ 64 mm(hg)(/low). Physical Exam: General: Alert and oriented x 3. No acute distress. HEENT: Normocephalic, atraumatic. Extraocular Movements Intact: Pupils Equal, Round, Reactive tolight: Sclerae anicteric. LUNGS:. Respiratory rate is regular nonlabored HEART: Regular rate and rhythm, ABDOMEN: Soft, nontender, nondistended EXTREMITIES: No peripheral edema is identified NEUROLOGIC: Alert and orient x 3. Gait and speech within normal limits. No focal neurological deficits noted Psych: Appropriate for current situation. Performance Status: 100 Lab: None pending. Pathology: Primary, c34.10 - malignant neoplasm of upper lobe, unspecified bronchus or lung, Diagnosed 01/08/2022 (active) limited, t4, n2, m0. 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 Talavera and his the role of radiation in brain metastasis. We discussed the simulation process. We reviewed the daily treatment regiment. We discussed the risks and side effects both acute and long-term. He understands that he can have a worsening of the already poor short-term memory that he has from his chemotherapy. Since his diagnosis was initially small cell carcinoma he is not a candidate for SRS. Appropriate treatment is the whole brain. He has a this week in [place] and he will be back on Friday to undergo simulation. In the interim I have placed him on dexamethasone 4 mg twice a day. Will also go ahead and see if we can memantine approved. Patient has agreed to proceed. We did review his imaging on the laptop. Signed by: 06/16/2023 3:16:19 PM <<Signature on File>> Time spent with patient:45 CPT Code: CPT Code:
--- NOTE | 2023-07-01 10:24 | ONCRAD TMN_ITS ---
Radiation Oncology Weekly Treatment Management Patient: Juan Barajas> MR#: [id number] : 1955> Attending Physician: Dr. Mounika Bradshaw Date of Service: 07/01/2023 Referring Physician(s) : Diagnosis: C34.10 - Malignant neoplasm of upper lobe, unspecified bronchus or lung, Diagnosed 01/08/2022 (Active) Limited, T4, N2, M0 Radiotherapy to date: Course: WholeBrain 2023, Treatment Site: [id number], Ref. ID: [id number], Energy: 15X, Dose/Fx (cGy): 300, #Fx: 5 / 10, Dose Correction (cGy): 0, Total Dose Delivered (cGy): 1,500, Start Date: 06/25/2023, Elapsed Days: 6 Reason for visit: The patient is being seen today as part of their regularly scheduled weekly on treatment visits to assess for acute toxicities from radiotherapy. Review of Systems: Patient has had some brain fog over the last few days. Vital Signs: Performed on 07/01/2023 10:11 AM BMI - 30.322 kg/m2 (high), Height - 67 in, Weight - 193.6 lbs, Temperature - 96.7 f, Pulse - 96.718 /min, Respiration - 18 /min, O2 Sat - 97 %, Pain - 0, Fatigue - 0 and BP - 119/ 74 mm(hg). Physical Exam: No changes on exam Imaging: Radiation therapy imaging related to accurate target localization (i.e. KV, MV and CBCT) was reviewed. Appropriate changes, if any, were made to ensure treatment accuracy. Plan: I have given him a dexamethasone taper which I went over with his . He will be off of his steroids in 2 weeks. He has a PET scan scheduled for July 14 and we will go ahead and schedule an MRI of his head in a month. Will continue with treatments as planned. Signed by: Dr. Mounika Bradshaw 07/01/2023 10:23:15 AM
[2023-07-02 09:47] LABS: Basophils # 0.1 10^3/uL (0.0-0.1); Basophils % 0.2 %; Hematocrit 34.3 % (37-53); Lymphocytes # 0.6 10^3/uL (0.8-4.8); Lymphocytes % 2.1 %; Mean Corpuscular HGB Conc 33.2 g/dL (30-55); Mean Corpuscular Hemoglobin 32.3 pg (27-33); Mean Corpuscular Volume 97.2 fl (82-101); Mean Platelet Volume 10.6 fL (7.4-10.4); Monocytes # 1.8 10^3/uL (0.2-0.9); Monocytes % 6.8 %; Neutrophils # 23.77 10^3/uL (1.8-7.7); Neutrophils % 89.6 %; Nucleated Red Blood Cells % 0 %; Platelet Count 271 10^3/cmm (157-399); Red Blood Count 3.53 10^6/uL (3.85-5.65); Red Cell Distribution Width 19.2 % (12.1-15.1); White Blood Count 26.52 10^3/uL (3.29-11.43)
[2023-07-02 10:05] LABS: Alanine Aminotransferase 22 U/L (0-41); Albumin Level 3.6 g/dL (3.5-5.2); Alkaline Phosphatase 108 U/L (40-130); Anion Gap 13.9 (5-19); Aspartate Amino Transferase 14 U/L (0-40); Blood Urea Nitrogen 46 mg/dL (8-23); Calcium 8.9 mg/dL (8.5-10.5); Carbon Dioxide 24 mmol/L (22-29); Chloride 100 mmol/L (98-107); Glomerular Filtration Rate 83.9 mL/min (90-130); Glucose 92 mg/dL (65-115); Osmolality Calculated 288 mOsm/kg (285-295); Potassium 4.9 mmol/L (3.5-5.1); Sodium 133 mmol/L (136-145); Total Bilirubin 0.5 mg/dL (0.15-1.2); Total Protein 6.6 g/dL (6.6-8.7)
[2023-07-02] MEDS: sodium chloride 0.9% 250 ML 75 ML IV (12:50)
[2023-07-02] MEDS: palonosetron 0.25 mg/5 mL SDV IVP (12:51)
[2023-07-02] MEDS: loperamide 2 mg Capsule PO (12:51)
[2023-07-02] MEDS: LURBINECTEDIN IV (13:18)
[2023-07-02] MEDS: SODIUM CHLORIDE 0.9% IV (13:18)
[2023-07-02] MEDS: pegfilgrastim 6 mg/0.6 mL Kit (onpro) SUBCUT (14:44)
[2023-07-02 14:50] VITALS: BP 125/82; PULSE 73; RESP 16; TEMP 36.3; O2SAT 96
--- NOTE | 2023-07-02 15:00 | XR_ITS ---
WS: [id number] Exam: XR chest 2V* [id number] Date/Time of Exam: 07/02/2023 3:02 PM Reason For Exam: cough Comparison 06/04/2023. Again noted is large RIGHT hilar mass showing little change since the last study. Chronic elevation o f the RIGHT diaphragm. The LEFT lung is generally clear. No pneumothorax or pleural effusion. There a ppears to be some widening of the mediastinum. Heart size top limits normal. Bony structures are inta ct. LEFT subclavian port ends in the midportion of the SVC. IMPRESSION: 1. Large masslike consolidation at the RIGHT hilar area. Little change since the previous study. 2. There is likely some widening of the mediastinum that may be secondary to mediastinal mass or lymp hadenopathy. Chronic elevation of the RIGHT diaphragm. 3. LEFT subclavian port in satisfactory location unchanged.
== END 2023-07-02 23:59 | disposition home or self-care (01) ==
PROVIDERS: Internal Medicine; Absent Provider Internal Medicine Medical Oncology; PCP Family Medicine; Visit Provider Radiology Radiation Oncology
DX: Z53.9 Procedure and treatment not carried out, unspecified reason (principal); C34.81 Malignant neoplasm of overlapping sites of right bronchus and lung; C79.31 Secondary malignant neoplasm of brain; Z79.52 Long term (current) use of systemic steroids; Z51.0 Encounter for antineoplastic radiation therapy; C34.01 Malignant neoplasm of right main bronchus; Z51.11 Encounter for antineoplastic chemotherapy; Z79.899 Other long term (current) drug therapy; R05.9 Cough, unspecified; Z87.891 Personal history of nicotine dependence; D64.81 Anemia due to antineoplastic chemotherapy; I71.40 Abdominal aortic aneurysm, without rupture, unspecified
CPT/HCPCS: 71046; 77290; 77295; 77300; 77334; 77387; 77412; 80053; 85025; 96367; 96375; 96377; 96413; 99024; 99214; 99215; J1100; J2469; J2506; J7050; J9223

== ENCOUNTER 2023-07-08 09:31 | Oncology outpatient (recurring) (ONCR) | payer MEDICARE, SELFPAY ==
[2023-07-07 10:15] LABS: Basophils # 0.2 10^3/uL (0.0-0.1); Basophils % 0.6 %; Eosinophils % 0.1 %; Hematocrit 35.1 % (37-53); Lymphocytes # 0.6 10^3/uL (0.8-4.8); Lymphocytes % 2.2 %; Mean Corpuscular HGB Conc 33.3 g/dL (30-55); Mean Corpuscular Hemoglobin 32.4 pg (27-33); Mean Corpuscular Volume 97.2 fl (82-101); Mean Platelet Volume 10.6 fL (7.4-10.4); Monocytes # 0.2 10^3/uL (0.2-0.9); Monocytes % 0.6 %; Neutrophils # 23.92 10^3/uL (1.8-7.7); Nucleated Red Blood Cells % 0 %; Platelet Count 216 10^3/cmm (157-399); Red Blood Count 3.61 10^6/uL (3.85-5.65); Red Cell Distribution Width 18.2 % (12.1-15.1); White Blood Count 26.93 10^3/uL (3.29-11.43)
[2023-07-07 10:31] LABS: Alanine Aminotransferase 88 U/L (0-41); Albumin Level 3.6 g/dL (3.5-5.2); Alkaline Phosphatase 168 U/L (40-130); Anion Gap 14.8 (5-19); Aspartate Amino Transferase 30 U/L (0-40); Blood Urea Nitrogen 41 mg/dL (8-23); Carbon Dioxide 22 mmol/L (22-29); Chloride 100 mmol/L (98-107); Globulin 3.2 g/dL (1.3-4.6); Glomerular Filtration Rate 96.1 mL/min (90-130); Glucose 93 mg/dL (65-115); Osmolality Calculated 284 mOsm/kg (285-295); Potassium 4.8 mmol/L (3.5-5.1); Sodium 132 mmol/L (136-145); Total Bilirubin 0.9 mg/dL (0.15-1.2); Total Protein 6.8 g/dL (6.6-8.7)
[2023-07-07 10:46] LABS: Neutrophils % 96.5 %; Slide Review Slide Review Perform
[2023-07-07] MEDS: sodium chloride 0.9% 1,000 ML 999 ML IV (12:59)
--- NOTE | 2023-07-08 11:17 | N.ONRD TS_ITS ---
Radiation Oncology Treatment Summary/Treatment Management Note Patient: Karl Martinez MR#: [id number] : 1955 Age: 67 Sex: Male Dictated by: Dr. Mounika Bradshaw Date of Service: 07/08/2023 Referring Physician(s) : Diagnosis: C34.10 - Malignant neoplasm of upper lobe, unspecified bronchus or lung, Diagnosed 01/08/2022 (Active) Limited, T4, N2, M0 Radiotherapy to Date: Course: SVC - Rt Lung, Treatment Site: SCLCa - Rt Lung, Ref. ID: [id number], Energy: 6X, Dose/Fx (cGy): 200, #Fx: , Dose Correction (cGy): 0, Total Dose Delivered (cGy): 4,800, Start Date: 02/05/2022, End Date: 03/19/2022, Elapsed Days: 42 WholeBrain 2023, Treatment Site: [id number], Ref. ID: [id number], Energy: 15X, Dose/Fx (cGy): 300, #Fx: , Dose Correction (cGy): 0, Total Dose Delivered (cGy): 3,000, Start Date: 06/25/2023, End Date: 07/08/2023, Elapsed Days: 13 Clinical Summary: The patient tolerated RT well. He had no skin changes during the course of his treatment. He did have a weeks worth of diarrhea which was only related to his whole brain radiation Vitals: Performed on 07/08/2023 9:46 AM BMI - 29.57 kg/m2 (high), Height - 67 in, Weight - 188.8 lbs, Temperature - 96.7 f, Pulse - 69 /min, Respiration - 16 /min, O2 Sat - 97 %, Pain - 0, Fatigue - 3 and BP - 136/ 79 mm(hg). Plan: End of treatment today. Continue on the above medication until the skin reaction resolves. Patient will begin chemotherapy in 2 to 4 weeks. He has a PET scan scheduled prior to starting his chemo. His is requested an MRI of his head which will order for approximately 1 month.. Signed by: Dr. Mounika Bradshaw>07/08/2023 11:15:30 AM <<Signature on File>>
== END 2023-07-15 23:59 | disposition home or self-care (01) ==
PROVIDERS: Nurse Practitioner Family; Absent Provider Internal Medicine Medical Oncology; PCP Family Medicine; Visit Provider Radiology Radiation Oncology
DX: C34.90 Malignant neoplasm of unspecified part of unspecified bronchus or lung (principal); C34.01 Malignant neoplasm of right main bronchus; C34.2 Malignant neoplasm of middle lobe, bronchus or lung
CPT/HCPCS: 36591; 77336; 77387; 77412; 80053; 85025; 96360; 99024; J7030

== ENCOUNTER 2023-07-23 09:16 | Oncology outpatient (recurring) (ONCR) | payer MEDICARE, SELFPAY ==
[2023-07-23 09:33] LABS: Basophils # 0.1 10^3/uL (0.0-0.1); Basophils % 0.4 %; Eosinophils % 0.2 %; Hematocrit 37.1 % (37-53); Lymphocytes # 1.1 10^3/uL (0.8-4.8); Lymphocytes % 8.2 %; Mean Corpuscular HGB Conc 33.4 g/dL (30-55); Mean Corpuscular Hemoglobin 33.2 pg (27-33); Mean Corpuscular Volume 99.5 fl (82-101); Mean Platelet Volume 9.6 fL (7.4-10.4); Monocytes # 0.8 10^3/uL (0.2-0.9); Monocytes % 6.1 %; Neutrophils # 11.18 10^3/uL (1.8-7.7); Neutrophils % 82.8 %; Nucleated Red Blood Cells % 0 %; Platelet Count 148 10^3/cmm (157-399); Red Blood Count 3.73 10^6/uL (3.85-5.65); Red Cell Distribution Width 20.3 % (12.1-15.1)
[2023-07-23 09:53] LABS: Alanine Aminotransferase 24 U/L (0-41); Albumin Level 3.7 g/dL (3.5-5.2); Alkaline Phosphatase 114 U/L (40-130); Anion Gap 16.1 (5-19); Aspartate Amino Transferase 18 U/L (0-40); Blood Urea Nitrogen 37 mg/dL (8-23); Calcium 8.8 mg/dL (8.5-10.5); Carbon Dioxide 25 mmol/L (22-29); Chloride 99 mmol/L (98-107); Creatine Phosphokinase 32 U/L (39-308); Globulin 2.6 g/dL (1.3-4.6); Glomerular Filtration Rate 96.1 mL/min (90-130); Glucose 92 mg/dL (65-115); Osmolality Calculated 290 mOsm/kg (285-295); Potassium 4.1 mmol/L (3.5-5.1); Sodium 136 mmol/L (136-145); Total Bilirubin 0.4 mg/dL (0.15-1.2); Total Protein 6.3 g/dL (6.6-8.7)
[2023-07-23] MEDS: sodium chloride 0.9% 250 ML 75 ML IV (11:44)
[2023-07-23] MEDS: palonosetron 0.25 mg/5 mL SDV IVP (11:46)
[2023-07-23] MEDS: SODIUM CHLORIDE 0.9% IV (12:29)
[2023-07-23] MEDS: LURBINECTEDIN IV (12:29)
[2023-07-23] MEDS: pegfilgrastim 6 mg/0.6 mL Kit (onpro) SUBCUT (13:45)
[2023-07-23 13:50] VITALS: BP 117/75; PULSE 77; RESP 16; TEMP 36.2; O2SAT 99
== END 2023-07-23 23:59 | disposition home or self-care (01) ==
PROVIDERS: Nurse Practitioner Family; Absent Provider Internal Medicine Medical Oncology; PCP Family Medicine; Visit Provider Radiology Radiation Oncology
DX: C34.90 Malignant neoplasm of unspecified part of unspecified bronchus or lung (principal); Z53.9 Procedure and treatment not carried out, unspecified reason; Z51.11 Encounter for antineoplastic chemotherapy; Z87.891 Personal history of nicotine dependence; Z92.3 Personal history of irradiation; Z79.899 Other long term (current) drug therapy; Z79.52 Long term (current) use of systemic steroids; D70.1 Agranulocytosis secondary to cancer chemotherapy; D64.81 Anemia due to antineoplastic chemotherapy; T45.1X5A Adverse effect of antineoplastic and immunosuppressive drugs, initial encounter
CPT/HCPCS: 80053; 82550; 85025; 96367; 96375; 96377; 96413; 99213; J1100; J2469; J2506; J7050; J9223

== ENCOUNTER 2023-08-07 10:34 | Outpatient (CLI) | payer MEDICARE, SELFPAY ==
--- NOTE | 2023-08-07 11:00 | MR_ITS ---
WS: [id number] MRI HEAD WITH CONTRAST TECHNIQUE: Sagittal T1, T2 axial, T2 axial FLAIR, axial susceptibility weighted imaging, axial diffus ion weighted images, and coronal T2 images were obtained. Pre and post-T1 axial and post T1 coronal i mages. ADC and FSPGR images. CLINICAL INFORMATION: sp xrt for brain mets COMPARISON: MRI 06/13/2023 FINDINGS: No evidence of restricted diffusion to suggest acute ischemia. Ventricular system and basal cisterns are patent. Moderate small vessel changes. Moderate parenchymal volume loss. Normal posterior fossa. Normal vascular flow voids at the skull base. No extra-axial fluid collections. Paranasal sinuses and mastoid air cells are well aerated. No hemosiderin on the susceptibility weighted images. Normal opt ic chiasm and pituitary infundibulum. Mild symmetric atrophy temporal lobes and hippocampal formation s. Previously described enhancing metastatic lesions have improved or essentially resolved compared to p revious. Largest lesion in the RIGHT temporal lobe demonstrates a small punctate focus of residual en hancement with a small amount of residual T2 signal abnormality. No evidence of progressed or new dis ease. MR/MR head wo/w con [id number] IMPRESSION: 1. Previously described small areas of enhancing metastatic disease have impro ana or resolved resolved. Larger lesion in the RIGHT temporal lobe demonstrates a tiny punctate focus of residual enhancement. 2. No evidence of new or progressive disease. 3. No restricted diffusion to suggest acute ischemia. 4. Moderate small vessel changes with moderate parenchymal volume loss. 5. No other acute findings.
[2023-08-07] MEDS: gadobenate dimeglumine 20 mL vial IV (11:33)
== END 2023-08-07 10:35 | disposition home or self-care (01) ==
LOC: RAD 10:34
PROVIDERS: PCP Family Medicine; Visit Provider Radiology Radiation Oncology
DX: C79.31 Secondary malignant neoplasm of brain (principal); C34.90 Malignant neoplasm of unspecified part of unspecified bronchus or lung; C34.2 Malignant neoplasm of middle lobe, bronchus or lung
CPT/HCPCS: 70553; A9577

== ENCOUNTER 2023-08-13 09:30 | Oncology outpatient (recurring) (ONCR) | payer MEDICARE, SELFPAY | END 2023-08-15 23:59 | disposition home or self-care (01) | LOC: ONCMED 08-21 09:44 | PROVIDERS: Absent Provider Internal Medicine Medical Oncology; PCP Family Medicine; Visit Provider Radiology Radiation Oncology | DX: Z53.9 Procedure and treatment not carried out, unspecified reason (principal) | CPT/HCPCS: 99214 ==

== ENCOUNTER 2023-08-13 09:39 | Oncology outpatient (recurring) (ONCR) | payer MEDICARE, SELFPAY ==
--- NOTE | 2023-07-22 16:00 | PETR_ITS ---
PROCEDURE INFORMATION: Exam: PET/CT Skull Base to Mid-thigh Exam date and time: 07/22/2023 4:15 PM Age: 67 years old Clinical indication: Condition or disease; Primary cancer: Lung cancer with mets; Follow-up oncological assessment; Additional info: Lung cancer with mets, has progressive disease every 3 to 6 months LABS AND CLINICAL REPORTS: Glucose: 96 mg/dl Treatment strategy for malignancy (PET staging): Restaging (PS) TECHNIQUE: Imaging protocol: Following at least four-hour fasting and following the injection of radiopharmaceutical, low dose CT images were obtained. Then, PET images were obtained. Attenuation corrected images were constructed using the CT scan. Fused images of PET and CT were reviewed. The standardized uptake values (SUV) reported below are maximum values within a region of interest, expressed in gm/ml. Exam includes orbital meatal line to mid-thigh. Radiopharmaceutical: 12.16 mCi F-18 FDG (Fluorodeoxyglucose), IV. Time of imaging post radiopharmaceutical administration: 1 hour Injection site: Right hand COMPARISON: [id number] 11/30/2022 12:27 PM FINDINGS: Brain: Visualized brain has normal physiologic uptake. Pharynx: No abnormal uptake. Larynx: No abnormal uptake. Lungs, pleura and trachea: Redemonstrated regional linear areas of fibrotic change in the right perihilar/medial right upper lung corresponding to post treatment change. No focal FDG uptake seen in this region to suggest residual tumor. Heart: Normal physiologic uptake. Mediastinal space: No abnormal uptake. Liver: No abnormal uptake. Gallbladder and bile ducts: No abnormal uptake. Pancreas: No abnormal uptake. Spleen: No abnormal uptake. Adrenal glands: There is moderate residual uptake of the right adrenal gland mass now measuring 2.2 x 1.3 cm (previously measuring 3.2 x 2.0 cm) with a max SUV measuring 2.5 (previously measuring 6.0 SUV). Kidneys and ureters: Normal physiologic uptake. Stomach and bowel: No abnormal uptake. Vasculature: No abnormal uptake. Lymph nodes: No abnormal uptake. No lymphadenopathy in the head, neck, chest, abdomen, pelvis, and extremities. Bones/joints: No abnormal uptake in the visualized axial and appendicular skeleton. Soft tissues: No abnormal uptake in the visualized head, neck, chest, abdomen, pelvis, and extremities. PET[facility] SUB[facility] [id number] IMPRESSION: Compared to most recent PET-CT, the FDG avid mediastinal lymph nodes have intervally resolved as well as the radiotracer uptake lateral to the pancreatic head. There is improving size and FDG uptake of the right adrenal nodule described on prior study. No evidence of new or progressing disease.
[2023-08-13 10:24] LABS: Basophils % 0.2 %; Eosinophils % 0.1 %; Hematocrit 35.5 % (37-53); Lymphocytes # 1.2 10^3/uL (0.8-4.8); Lymphocytes % 6.2 %; Mean Corpuscular Hemoglobin 32.7 pg (27-33); Mean Corpuscular Volume 99.2 fl (82-101); Mean Platelet Volume 10.3 fL (7.4-10.4); Monocytes # 0.8 10^3/uL (0.2-0.9); Monocytes % 4.4 %; Neutrophils # 16.19 10^3/uL (1.8-7.7); Neutrophils % 86.5 %; Nucleated Red Blood Cells % 0.1 %; Platelet Count 158 10^3/cmm (157-399); Red Blood Count 3.58 10^6/uL (3.85-5.65); White Blood Count 18.73 10^3/uL (3.29-11.43)
[2023-08-13 10:45] LABS: Alanine Aminotransferase 18 U/L (0-41); Albumin Level 3.4 g/dL (3.5-5.2); Alkaline Phosphatase 104 U/L (40-130); Anion Gap 13.3 (5-19); Aspartate Amino Transferase 15 U/L (0-40); Blood Urea Nitrogen 37 mg/dL (8-23); Calcium 8.8 mg/dL (8.5-10.5); Carbon Dioxide 23 mmol/L (22-29); Chloride 101 mmol/L (98-107); Creatine Phosphokinase 41 U/L (39-308); Globulin 2.7 g/dL (1.3-4.6); Glomerular Filtration Rate 83.9 mL/min (90-130); Glucose 91 mg/dL (65-115); Osmolality Calculated 284 mOsm/kg (285-295); Potassium 4.3 mmol/L (3.5-5.1); Sodium 133 mmol/L (136-145); Total Bilirubin 0.4 mg/dL (0.15-1.2); Total Protein 6.1 g/dL (6.6-8.7)
[2023-08-13] MEDS: sodium chloride 0.9% (100 ml) 200 ML 75 ML (12:59)
[2023-08-13] MEDS: palonosetron 0.25 mg/5 mL SDV IVP (13:03)
[2023-08-13] MEDS: LURBINECTEDIN IV (13:44)
[2023-08-13] MEDS: SODIUM CHLORIDE 0.9% IV (13:44)
[2023-08-13 15:20] VITALS: BP 144/90; PULSE 65; RESP 17; TEMP 36.6; O2SAT 97
[2023-08-13] MEDS: pegfilgrastim 6 mg/0.6 mL Kit (onpro) SUBCUT (15:26)
== END 2023-08-13 23:59 | disposition home or self-care (01) ==
PROVIDERS: Nurse Practitioner Family; PCP Family Medicine; Visit Provider Radiology Radiation Oncology
DX: Z53.9 Procedure and treatment not carried out, unspecified reason; Z51.11 Encounter for antineoplastic chemotherapy; C34.2 Malignant neoplasm of middle lobe, bronchus or lung; Z87.891 Personal history of nicotine dependence; C79.71 Secondary malignant neoplasm of right adrenal gland; N40.0 Benign prostatic hyperplasia without lower urinary tract symptoms; Z92.21 Personal history of antineoplastic chemotherapy; Z92.3 Personal history of irradiation; J06.9 Acute upper respiratory infection, unspecified; Z79.52 Long term (current) use of systemic steroids
CPT/HCPCS: 78815; 80053; 82550; 85025; 96367; 96375; 96377; 96413; 99214; A9552; J1100; J2469; J2506; J7050; J9223

== ENCOUNTER 2023-09-03 11:13 | Oncology outpatient (recurring) (ONCR) | payer MEDICARE, SELFPAY ==
[2023-09-03 11:39] LABS: Basophils % 0.2 %; Eosinophils % 0.2 %; Hematocrit 36.8 % (37-53); Lymphocytes % 14.6 %; Mean Corpuscular HGB Conc 33.2 g/dL (30-55); Mean Corpuscular Hemoglobin 33.5 pg (27-33); Mean Corpuscular Volume 101.1 fl (82-101); Monocytes # 0.8 10^3/uL (0.2-0.9); Monocytes % 6.1 %; Neutrophils # 10.48 10^3/uL (1.8-7.7); Neutrophils % 75.9 %; Nucleated Red Blood Cells % 0.1 %; Platelet Count 136 10^3/cmm (157-399); Red Blood Count 3.64 10^6/uL (3.85-5.65); Red Cell Distribution Width 20.3 % (12.1-15.1); White Blood Count 13.81 10^3/uL (3.29-11.43)
[2023-09-03 11:55] LABS: Alanine Aminotransferase 27 U/L (0-41); Albumin Level 3.8 g/dL (3.5-5.2); Alkaline Phosphatase 109 U/L (40-130); Anion Gap 14.2 (5-19); Aspartate Amino Transferase 19 U/L (0-40); Blood Urea Nitrogen 35 mg/dL (8-23); Calcium 9.2 mg/dL (8.5-10.5); Carbon Dioxide 29 mmol/L (22-29); Chloride 97 mmol/L (98-107); Creatine Phosphokinase 26 U/L (39-308); Globulin 2.5 g/dL (1.3-4.6); Glomerular Filtration Rate 112.1 mL/min (90-130); Glucose 77 mg/dL (65-115); Osmolality Calculated 289 mOsm/kg (285-295); Potassium 4.2 mmol/L (3.5-5.1); Sodium 136 mmol/L (136-145); Total Bilirubin 0.4 mg/dL (0.15-1.2); Total Protein 6.3 g/dL (6.6-8.7)
[2023-09-03] MEDS: palonosetron 0.25 mg/5 mL SDV IVP (14:29)
[2023-09-03] MEDS: sodium chloride 0.9% 250 ML 75 ML IV (14:30)
[2023-09-03] MEDS: dexamethasone 4 mg/mL INJ 5 mL 12 MG IVP (14:32)
[2023-09-03] MEDS: SODIUM CHLORIDE 0.9% IV (14:57)
[2023-09-03] MEDS: LURBINECTEDIN IV (14:57)
[2023-09-03] MEDS: pegfilgrastim 6 mg/0.6 mL Kit (onpro) SUBCUT (16:45)
[2023-09-03 16:49] VITALS: BP 105/65; PULSE 85; RESP 18; TEMP 36.6; O2SAT 99
== END 2023-09-03 23:59 | disposition home or self-care (01) ==
PROVIDERS: Nurse Practitioner Family; PCP Family Medicine; Visit Provider Radiology Radiation Oncology
DX: C34.2 Malignant neoplasm of middle lobe, bronchus or lung (principal); Z51.11 Encounter for antineoplastic chemotherapy; Z79.899 Other long term (current) drug therapy; Z79.52 Long term (current) use of systemic steroids; Z87.891 Personal history of nicotine dependence; Z92.3 Personal history of irradiation; D70.1 Agranulocytosis secondary to cancer chemotherapy; T45.1X5A Adverse effect of antineoplastic and immunosuppressive drugs, initial encounter
CPT/HCPCS: 80053; 82550; 85025; 96375; 96377; 96413; 99214; J1100; J2469; J2506; J7050; J9223

== ENCOUNTER 2023-10-01 08:30 | Oncology outpatient (recurring) (ONCR) | payer MEDICARE, SELFPAY ==
[2023-09-24 09:00] LABS: Mean Corpuscular HGB Conc 33.9 g/dL (30-55); Mean Corpuscular Hemoglobin 34.6 pg (27-33); Platelet Count 186 10^3/cmm (157-399); Red Blood Count 3.53 10^6/uL (3.85-5.65); Red Cell Distribution Width 18.3 % (12.1-15.1); White Blood Count 14.65 10^3/uL (3.29-11.43)
[2023-09-24 09:26] LABS: Alanine Aminotransferase 15 U/L (0-41); Albumin Level 3.7 g/dL (3.5-5.2); Alkaline Phosphatase 100 U/L (40-130); Anion Gap 16.3 (5-19); Aspartate Amino Transferase 17 U/L (0-40); Blood Urea Nitrogen 43 mg/dL (8-23); Calcium 9.2 mg/dL (8.5-10.5); Carbon Dioxide 23 mmol/L (22-29); Chloride 102 mmol/L (98-107); Creatine Phosphokinase 20 U/L (39-308); Globulin 2.9 g/dL (1.3-4.6); Glomerular Filtration Rate 133.6 mL/min (90-130); Glucose 102 mg/dL (65-115); Osmolality Calculated 295 mOsm/kg (285-295); Potassium 4.3 mmol/L (3.5-5.1); Sodium 137 mmol/L (136-145); Total Bilirubin 0.3 mg/dL (0.15-1.2); Total Protein 6.6 g/dL (6.6-8.7)
[2023-09-24 09:39] LABS: Slide Review Slide Review Perform
[2023-09-24 09:40] LABS: Absolute Neutrophil 11.9 10^3/cmm (1.4-6.5); Absolute Segmented Neutrophil 11.9 10/cmm (1.6-7.1); Anisocytosis 1+; Eosinophils 0 %; Lymphocytes 10 %; Lymphocytes Absolute 1.5 10^3/cmm (1.2-3.4); Macrocytosis 1+; Monocytes Absolute 0.4 10^3/cmm (0.1-0.6); Platelet Estimate Normal (Normal); Segmented Neutrophils 81 %; Total Cells Counted 100 (0-100)
[2023-09-24] MEDS: sodium chloride 0.9% 1,000 ML 999 ML IV (11:15)
[2023-10-01 08:55] LABS: Basophils % 0.3 %; Eosinophils % 0.3 %; Hematocrit 35.3 % (37-53); Lymphocytes # 1.9 10^3/uL (0.8-4.8); Lymphocytes % 15.4 %; Mean Corpuscular HGB Conc 33.7 g/dL (30-55); Mean Corpuscular Hemoglobin 34.6 pg (27-33); Mean Corpuscular Volume 102.6 fl (82-101); Mean Platelet Volume 10.4 fL (7.4-10.4); Monocytes # 0.7 10^3/uL (0.2-0.9); Monocytes % 6.1 %; Neutrophils # 9.05 10^3/uL (1.8-7.7); Neutrophils % 75.5 %; Nucleated Red Blood Cells % 0.2 %; Platelet Count 180 10^3/cmm (157-399); Red Blood Count 3.44 10^6/uL (3.85-5.65); Red Cell Distribution Width 17.8 % (12.1-15.1); White Blood Count 11.99 10^3/uL (3.29-11.43)
[2023-10-01 09:13] LABS: Alanine Aminotransferase 28 U/L (0-41); Albumin Level 3.6 g/dL (3.5-5.2); Alkaline Phosphatase 94 U/L (40-130); Anion Gap 17.1 (5-19); Aspartate Amino Transferase 21 U/L (0-40); Blood Urea Nitrogen 38 mg/dL (8-23); Calcium 8.9 mg/dL (8.5-10.5); Carbon Dioxide 21 mmol/L (22-29); Chloride 107 mmol/L (98-107); Glomerular Filtration Rate 111.8 mL/min (90-130); Glucose 80 mg/dL (65-115); Osmolality Calculated 300 mOsm/kg (285-295); Potassium 4.1 mmol/L (3.5-5.1); Sodium 141 mmol/L (136-145); Total Bilirubin 0.4 mg/dL (0.15-1.2); Total Protein 6.6 g/dL (6.6-8.7)
[2023-10-01] MEDS: sodium chloride 0.9% 500 ML 999 ML IV (11:07)
[2023-10-01 11:46] VITALS: BP 107/78; PULSE 88; RESP 17; TEMP 36.3; O2SAT 94
== END 2023-10-15 23:59 | disposition home or self-care (01) ==
PROVIDERS: PCP Family Medicine; Visit Provider Nurse Practitioner Family
DX: C34.2 Malignant neoplasm of middle lobe, bronchus or lung (principal); Z53.9 Procedure and treatment not carried out, unspecified reason; C79.9 Secondary malignant neoplasm of unspecified site; D64.9 Anemia, unspecified; D70.1 Agranulocytosis secondary to cancer chemotherapy; T45.1X5A Adverse effect of antineoplastic and immunosuppressive drugs, initial encounter; X58.XXXA Exposure to other specified factors, initial encounter
CPT/HCPCS: 80053; 82550; 85007; 85025; 96360; 99214; J7030; J7040

== ENCOUNTER 2023-10-14 06:00 | Outpatient (RCR) | payer MEDICARE, SELFPAY | END 2023-10-15 23:59 | disposition home or self-care (01) | LOC: MPT 06:00 | PROVIDERS: Visit Provider Emergency Medicine | DX: R54 Age-related physical debility (principal) | CPT/HCPCS: 97162 ==

== ENCOUNTER 2023-11-03 14:28 | Oncology outpatient (recurring) (ONCR) | payer MEDICARE, SELFPAY ==
--- NOTE | 2023-10-16 14:30 | MR_ITS ---
WS: [id number] MRI BRAIN WITH AND WITHOUT CONTRAST HISTORY: falling frequently, history of lung cancer. COMPARISON: 08/07/2023 TECHNIQUE: Multiplanar imaging performed through the brain with MultiHance 20 ml's IV. Diffusion imaging is normal. Moderate small vessel ischemic changes within the white matter. No progr ession. No susceptibility artifacts or prior lacunar infarcts. Ventricles and extra-axial spaces are normal. Clivus and pituitary gland are normal. Visualized posterior fossa and brainstem are also normal. Reidentified is a single enhancing nodule within the anterior RIGHT temporal lobe that was previously described. Enhancing cortical lesion measures 3 mm. No additional or recurrent metastatic sites are identified. Dural venous sinuses are normal. Paranasal sinuses: Mucoperiosteal thickening in the LEFT sphenoid sinus. No air-fluid levels. Mastoid air cells: Normal. Calvarium and scalp: Normal. MR/MR head wo/w con [id number] IMPRESSION: 1. No acute infarct. 2. Reidentified is a focus of residual enhancement for metastatic disease in t he anterior RIGHT temporal lobe measuring 3 mm. Unchanged since 08/07/2023. No n ew or additional metastatic sites are identified today. 3. Moderate small vessel ischemic disease. 4. LEFT sphenoid sinus disease.
[2023-10-16] MEDS: gadobenate dimeglumine 20 mL vial IV (14:58)
[2023-10-16 15:58] LABS: Basophils # 0.1 10^3/uL (0.0-0.1); Basophils % 0.6 %; Eosinophils # 0.1 10^3/uL (0.0-0.8); Eosinophils % 1.1 %; Hematocrit 32.3 % (37-53); Mean Corpuscular HGB Conc 32.2 g/dL (30-55); Mean Corpuscular Volume 105.6 fl (82-101); Mean Platelet Volume 10.5 fL (7.4-10.4); Monocytes # 1.1 10^3/uL (0.2-0.9); Monocytes % 12.8 %; Neutrophils # 5.14 10^3/uL (1.8-7.7); Neutrophils % 60.7 %; Nucleated Red Blood Cells % 0.2 %; Platelet Count 204 10^3/cmm (157-399); Red Blood Count 3.06 10^6/uL (3.85-5.65); Red Cell Distribution Width 17.2 % (12.1-15.1); White Blood Count 8.46 10^3/uL (3.29-11.43)
[2023-10-16 16:22] LABS: Alanine Aminotransferase 13 U/L (0-41); Albumin Level 3.6 g/dL (3.5-5.2); Alkaline Phosphatase 81 U/L (40-130); Anion Gap 18.3 (5-19); Aspartate Amino Transferase 42 U/L (0-40); Blood Urea Nitrogen 22 mg/dL (8-23); Calcium 9.4 mg/dL (8.5-10.5); Carbon Dioxide 22 mmol/L (22-29); Chloride 107 mmol/L (98-107); Globulin 3.1 g/dL (1.3-4.6); Glomerular Filtration Rate 95.8 mL/min (90-130); Glucose 92 mg/dL (65-115); Osmolality Calculated 299 mOsm/kg (285-295); Potassium 4.3 mmol/L (3.5-5.1); Sodium 143 mmol/L (136-145); Total Bilirubin 0.4 mg/dL (0.15-1.2); Total Protein 6.7 g/dL (6.6-8.7)
== END 2023-11-15 23:59 | disposition home or self-care (01) ==
PROVIDERS: PCP Family Medicine; Visit Provider Nurse Practitioner Family
DX: C79.31 Secondary malignant neoplasm of brain (principal); C34.2 Malignant neoplasm of middle lobe, bronchus or lung; B02.29 Other postherpetic nervous system involvement; Z87.891 Personal history of nicotine dependence; Z86.73 Personal history of transient ischemic attack (TIA), and cerebral infarction without residual deficits; Z92.3 Personal history of irradiation; Z92.21 Personal history of antineoplastic chemotherapy; Z79.52 Long term (current) use of systemic steroids; Z79.891 Long term (current) use of opiate analgesic
CPT/HCPCS: 36591; 70553; 80053; 85025; 99214; A9577

== ENCOUNTER 2023-11-21 10:56 | Inpatient (IN) | payer MEDICARE, SELFPAY ==
[2023-11-21] VITALS (94 sets, daily range): BP systolic 77–129; BP diastolic 47–88; PULSE 67–122; RESP 9–31; TEMP 36.7–38.6; O2SAT 89–100; BMI 29.7
--- NOTE | 2023-11-21 11:04 | XR_ITS ---
WS: [id number] Examination: XR chest 1V portable [id number] Reason for Exam: dyspnea/cough Date: 11/21/2023 Comparison: 09/29/2023 Findings: An ET tube is identified with its tip in good position above the yrn. An NG tube is seen with its tip looped within the stomach. There is a left-sided Port-A-Cath. The cardiomediastinal silhouette is unchanged with continued mass density and parenchymal opacity rose mary und the right hilum There is no failure or effusion The lung markings are increased which may be at least in part chronic in nature and/or developing pne umonia, particularly on the left.. XR/XR chest 1V portable [id number] Impression: The ET tube is well-positioned. The right perihilar mass density persists. In general lung markings are increased without edema or effusion. This may be c hronic in nature versus developing pneumonia..
--- NOTE | 2023-11-21 11:05 | ECG_ITS ---
[facility] Test Date: 2023-11-21 Pat Name: Karl Martinez Department: Room: Gender: Male Product Info Specialist: : 1955 Requested By: Dimas Granados Order Number: [id number] Malinda MD: Asuncion Benjamin M.D. Measurements Intervals [place] Rate: 119 P: 14 SC: 194 QRS: -66 QRSD: 92 T: 63 QT: 282 QTc: 397 Interpretive Statements SINUS TACHYCARDIA LEFT ANTERIOR FASCICULAR BLOCK [QRS AXIS <= -45, QR IN I, RS IN II] POSSIBLE ANTERIOR MYOCARDIAL INFARCTION , OF INDETERMINATE AGE [30 ms Q WAVE IN V3/V4, OR R < 0.2 mV IN V4] Compared to ECG 04/14/2023 05:28:49 Myocardial infarct finding now present Sinus rhythm no longer present First degree AV block no longer present Electronically Signed On 11-21-2023 17:03:37 CDT by Asuncion Benjamin M.D. [id number]
[2023-11-21] MEDS: etomidate 2 mg/mL INJ SDV 10 mL 20 MG IVP (11:09)
[2023-11-21] MEDS: succinylcholine 20 mg/mL SDV 10mL 100 MG IVP (11:09)
--- NOTE | 2023-11-21 11:09 | PC.NURSE ---
100 MG SUCC WASTED WITH PATTI Dowd RN.
--- NOTE | 2023-11-21 11:11 | CT_ITS ---
WS: [id number] CT HEAD NONCONTRAST HISTORY: Possible stroke TECHNIQUE: Contiguous axial imaging performed through the brain in 3.0 mm imaging. Bone and soft tiss ue windows. Sagittal and coronal reformats reviewed. All CT scans at [facility] use at least one of these dose optimization techniques: automated exposure control; mA and/or kV adjustment per pa tient size (includes targeted exams where dose is matched to clinical indication); or iterative recon struction. DLP: 1150.00 mGy.cm COMPARISON: 02/05/2022 No acute intracranial hemorrhage, midline shift or mass effect. Mild atrophy. There is extensive decreased attenuation throughout the white matter which has progress ed since 02/05/2022. With this amount of white matter disease small acute infarcts would easily be ob scured. Small lacunar infarct RIGHT basal ganglia. Ventricles: Normal size with no hydrocephalus. Paranasal sinuses: Air-fluid level RIGHT maxillary sinus. Mild mucoperiosteal thickening in the poste rior ethmoid air cells. Mild sphenoid sinus thickening. Increased secretions in the posterior nasopha rynx. Mastoid air cells: Well pneumatized. Calvarium and scalp: Skull is intact with no soft tissue edema or swelling. CT/CT head wo con* [id number] IMPRESSION: 1. No acute intracranial hemorrhage or edema. 2. Moderate progression of small vessel ischemic changes since 02/05/2022. Acu te infarct would be difficult to exclude this amount of chronic microvascular d isease. 3. Acute sinusitis. Air-fluid level in the RIGHT maxillary sinus. Increased se cretions also in the posterior nasopharynx.
[2023-11-21] MEDS: propofol 1,000 MG/100 ML INJ 2.59 MG IV ×2 (11:22→19:00)
[2023-11-21 11:24] LABS: Hematocrit 42.5 % (37-53); Mean Corpuscular HGB Conc 32.2 g/dL (30-55); Mean Corpuscular Hemoglobin 33.2 pg (27-33); Mean Corpuscular Volume 102.9 fl (82-101); Mean Platelet Volume 11.1 fL (7.4-10.4); Platelet Count 90 10^3/cmm (157-399); Red Blood Count 4.13 10^6/uL (3.85-5.65); Red Cell Distribution Width 16.5 % (12.1-15.1); White Blood Count 4.07 10^3/uL (3.29-11.43)
[2023-11-21] MEDS: sodium chloride 0.9% 1,000 ML 999 ML IV ×2 (11:30→11:40)
[2023-11-21 11:32] LABS: ABG PCO2 46.7 mmHg (35-45); ABG PH Result 7.34 (7.35-7.45); Arterial Blood Gas Hematocrit 41.1 % (42-52); Base Excess ABG -1.2 mmol/L (-2.0-2.0); Blood Gas Allen Test Pos; Blood Gas Sample Type Arterial; Carboxyhemoglobin 1.6 %THgb (0.4-20.1); Ionized Calcium Level - ABG 1.2 mmol/L (1.1-1.4); Methemoglobin 0.4 % (0.4-1.5); Potassium Level - ABG 4.4 mmol/L (3.5-5.0); Total Hemoglobin 13.4 g/dL (14-18)
--- NOTE | 2023-11-21 11:32 | W.ED.AMS ---
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 She was extremely somnolent and not responsive to any painful stimuli. I intubated him fairly quickly on presentation. Family was not present initially. Related Data Home Medications Medication Instructions Recorded Confirmed aspirin 81 mg tablet,delayed 81 mg PO QAM 01/07/22 11/20/23 release ferrous sulfate 325 mg (65 mg 325 mg PO DAILY 06/28/22 11/20/23 iron) tablet ascorbic acid (vitamin C) 1,000 mg 1 g PO DAILY 08/09/22 11/20/23 capsule cholecalciferol (vitamin D3) 125 125 mcg PO DAILY 08/09/22 11/20/23 mcg (5,000 unit) capsule mecobalamin (vitamin B12) 500 mcg 500 mcg PO DAILY 08/09/22 11/20/23 chewable tablet [id number] 150 mcg-vit K1 1 tab PO DAILY 08/09/22 11/20/23 30 mcg-lycop 300 mcg-lutein tablet (Centrum Minis Men 50 Plus) acetaminophen 650 mg 650 mg PO Q8H 12/17/22 11/20/23 tablet,extended release (Pain Relief (acetaminophen)) Previous Rx's Medication Instructions Recorded nitroglycerin 0.4 mg sublingual 0.4 mg sublingual Q5M PRN Chest 02/21/22 tablet (Nitrostat) Pain #25 tabs lorazepam 1 mg tablet 0.5 - 1 mg (0.5 - 1 x 1 mg) PO Q6H 12/16/22 PRN Severe Nausea #30 tabs ondansetron HCl 4 mg tablet 4 mg PO QID PRN Nausea/vomiting 12/17/22 #30 tabs prochlorperazine maleate 10 mg 10 mg PO Q4H PRN Mild Nausea #30 12/17/22 tablet (Compazine) tabs albuterol sulfate 90 mcg/actuation 2 inh inhalation Q8H PRN shortness 04/15/23 aerosol inhaler of breath or wheezing #6.7 grams furosemide 20 mg tablet (Lasix) 20 mg PO DAILY PRN Weight gain 04/15/23 more than 3 pounds in a day #60 tabs metoprolol tartrate 25 mg tablet 12.5 mg (1/2 x 25 mg) PO BID #30 06/16/23 tabs cefuroxime axetil 500 mg tablet 500 mg PO BID 10 days #20 tabs 08/13/23 omeprazole 20 mg capsule,delayed 20 mg PO BID 90 days #180 caps 08/14/23 release fluticasone propionate 50 1 spray intranasal Q12H #16 grams 08/15/23 mcg/actuation nasal spray,suspension sertraline 25 mg tablet (Zoloft) 25 mg PO DAILY 90 days #90 tabs 08/15/23 tizanidine 2 mg tablet 2 mg PO Q8H PRN muscle spasticity 08/15/23 #90 tabs acetaminophen 300 mg-codeine 30 mg 1 tab PO Q8H PRN pain 7 days #21 10/13/23 tablet tabs dexamethasone 4 mg tablet 4 mg PO BID #60 tabs 10/20/23 gabapentin 300 mg capsule 600 mg (2 x 300 mg) PO BID 30 days 10/20/23 #120 caps oxycodone 15 mg tablet 15 mg PO Q6H PRN pain 30 days #120 11/03/23 tabs Allergies Allergy/AdvReac Type Severity Reaction Status Date / Time [id number] Reductase Allergy Unknown Verified 11/20/23 09:17 Inhibitor Review of Systems General: Reports: ROS unobtainable due to endotracheal tube, ROS unobtainable due to medical condition and ROS unobtainable due to mental status PFSH ED PFSH: Medical History Falls frequently Frail elderly Small cell lung cancer Pneumonia Port-A-Cath in place Neutropenia Chronic back pain GERD (gastroesophageal reflux disease) Coronary artery disease Hypertension Abdominal aortic aneurysm Congenital umbilical hernia Carpal tunnel syndrome on both sides Past heart attack COPD (chronic obstructive pulmonary disease) Surgical History Hx of umbilical hernia repair History of tonsillectomy and adenoidectomy History of bilateral carpal tunnel release S/P AAA repair using bifurcation graft History of endovascular stent graft for abdominal aortic aneurysm (AAA) History of heart artery stent S/P rotator cuff repair Family History Family/Other Cancer Father CAD (coronary artery disease) Stroke Brother CAD (coronary artery disease) Brother CAD (coronary artery disease) Diabetes Sister CAD (coronary artery disease) Cancer Chronic kidney disease (CKD) Diabetes Sister Cancer Diabetes Mother Stroke Other Hyperlipidemia Hypertension Psychiatric illness Denies family history of Clotting disorder Dementia Suicide Anesthesia complication Bleeding disorder Lung disease Social History Smoking and tobacco/nicotine status: unknown if used tobacco/nicotine Quit status (tobacco/nicotine): has quit using Year quit tobacco: 2021 Former quit date comment: December 2021 Alcohol intake: never Substance/Drug Use: never Physical Exam Narrative: General: Does not respond to painful stimuli Skin: Warm, dry Head: Normocephalic, atraumatic. Neck: Supple, trachea midline. Eye: Extraocular movements are intact. Ears, nose, mouth and throat: Dry oral mucosa. Cardiovascular: Regular rate and rhythm, Normal peripheral perfusion. Does have some edema Respiratory: Sonorous breathing, requiring significant oxygen support. Appears in respiratory distress. Intubated to protect airway. Gastrointestinal: Soft, mildly distended, Normal bowel sounds. Musculoskeletal: no deformity. Neurological: Not Alert and oriented, No obvious focal neurological deficit observed. Psychiatric: unable to assess. Course Vital Signs: Vital signs: Vital Signs Temperature 101.5 F H 11/21/23 10:59 Pulse Rate 97 11/21/23 13:05 Respiratory Rate 14 11/21/23 13:05 Blood Pressure 105/66 11/21/23 13:05 Pulse Oximetry 100 11/21/23 13:05 Oxygen Delivery Me thod Mechanical Ventil ation 11/21/23 13:05 Oxygen Flow Rate 15 11/21/23 10:59 Fraction of Inspir ed Oxygen 100 11/21/23 11:40 MDM - Altered Mental Status Medical Decision Making Medical decision making: Differential diagnosis including but not limited to and based on the above HPI, review of systems and physical exam: In this patient with altered mental status: Stroke. Hypoglycemia. Metabolic encephalopathy. Infections such as pneumonia, urinary tract infection, Covid-19, Influenza. Electrolyte abnormalities such as hypernatremia. Renal failure / uremia. Hepatic encephalopathy. Hypoxemia. Hypercapnic respiratory failure. Psychosis. Drug or alcohol intoxication. Medication overdose. Orders placed to evaluate differential diagnosis based on the above differential, HPI and physical exam Endotracheal intubation Time: 1100 a.m. Confirmed: Patient, procedure, and site correct. Consent: , Emergent. Indication: Respiratory failure. Airway protection Procedural sedation: Succinylcholine and etomidate . Monitoring: Cardiac, blood pressure, continuous pulse oximetry. Preparation: Pre oxygenated, Inline stabilization of cervical spine maintained, Ensured proper cuff inflation. Technique: Oral intubation: A 8 ET tube was inserted, glydescope, visualized cords and ett passing through cords. . Confirmation of tube placement: Bilateral chest rise, Positive color change indicated on end title CO2. Post procedure exam: Equal breath sounds. Complications: None. Performed by: Self. Total time: 10 minutes. AB.34/47/227. 100% oxygenation. Patient was a bit over oxygenated. No CO2 retention to speak of. No overt acidosis. Although he is mildly acidotic. EKG: Time 1259. Rate 96. Normal sinus rhythm, No ST-T changes, no ectopy, first degree AV Block, EP Interpretation. This was reviewed and interpreted by myself the ER physician at 103 Chest x-ray: ET tube is in good place. There is a right perihilar mass that is persistent. Lung markings are increased without obvious edema or effusion. CT head: No obvious masses. Progression of small vessel ischemic changes. No acute intracranial process. no intracranial hemorrhage, no evidence of infarct. no evidence of acute fracture.This was reviewed and interpreted by myself the ER physician. CT of the chest abdomen pelvis with contrast: This was ordered secondary to unclear source of possible sepsis. He also had some abdominal distention which was concerning with copious watery diarrhea so the abdomen was added as well. Fibrotic changes and continued mass in the right lung. Acute bilateral groundglass attenuation and opacifications and atelectasis. Suspicion for acute pneumonia/pneumonitis. Significant fluid and air distention of the colon. There is no wall thickening or pneumatosis. May be some mild colitis. No free fluid. No free air. No renal obstructions. No pneumothorax. This was reviewed and interpreted by myself the emergency room physician. I also reviewed the radiology report. Lab Review: Laboratory results were reviewed and interpreted by myself the emergency room physician. White count normal at 4. Hemoglobin normal at 13.7. Platelets a little low at 90. Sodium is 132. Some mild acidosis with a bicarb of 20. BUN is elevated at 32 with a normal creatinine at 0.8. Troponin initially is elevated slightly at 132. proBNP is elevated as well at 20 870/500 and a previous measurement. UA is negative but a bit concentrated. UDS is positive for opiates. Patient takes oxycodone. I reviewed the patient's medical record. Reexamination: Patient is now stable on the vent. Blood pressures have been a little bit soft. Whether this is from sedation or from sepsis difficult to say. His heart rate has improved from initial. He has coughed and moved while on the vent received vecuronium for CT scan. Further history: I spoke with the family. They do endorse that he is a full code. He has non-small cell lung cancer. Has been receiving chemotherapy. He has mets to the brain which she said have been getting smaller and mets to his adrenals. She says it is very aggressive and he follows with Dr. Recinos. She says he has been fighting with pain from shingles that he had a couple months ago. He had been on gabapentin which made him extremely somnolent. She says she stopped this abruptly 2 days ago when he started back on oxycodone. He has had 2 doses of oxycodone in the last 1224 hrs. She says this morning when she went to wake him up he was completely unresponsive. He has had a bad cough recently she says. Assessment and plan: Metabolic encephalopathy/unresponsiveness Respiratory failure Sepsis Pneumonia Hypotension Fever -2.5 L normal saline bolus. Fluid volumes based on ideal body weight. -Broad-spectrum antibiotics were administered. Zyvox and meropenem -Sepsis quality measures. -Lactic acid with a reflex was ordered. -Blood cultures were ordered. -Levophed has been ordered but has not been required thus far. ?Sedation initially with propofol but blood pressure did not tolerate so now on Versed. -I discussed the patient with the hospitalist on-call who is admitting the patient. - Discussed findings and plan with patient. Answered any questions. - All laboratory values were reviewed and interpreted personally by myself, the ER physician - All imaging was reviewed and interpreted personally by myself, the ER physician. - Evaluation and treatment of this problem were appropriate in the emergency setting Critical care -I spent a total of >75 minutes of critical care time managing the patient, independent of any other practitioner. -The time involved in the performance of separately reportable procedures was not counted towards critical care time. Lab Data 11/21/23 11:05 11/21/23 11:05 Radiology Impressions Chest X-Ray 11/21/23 11:04 Impression: The ET tube is well-positioned. The right perihilar mass density persists. In general lung markings are increased without edema or effusion. This may be chronic in nature versus developing pneumonia.. Head CT 11/21/23 11:11 IMPRESSION: 1. No acute intracranial hemorrhage or edema. 2. Moderate progression of small vessel ischemic changes since 02/05/2022. Acute infarct would be difficult to exclude this amount of chronic microvascular disease. 3. Acute sinusitis. Air-fluid level in the RIGHT maxillary sinus. Increased secretions also in the posterior nasopharynx. Chest/Abdomen/Pelvis CT 11/21/23 11:39 IMPRESSION: 1. Patient is status post treatment for RIGHT lung cancer. Pulmonary fibrotic changes centrally are reidentified. 2. Acute bilateral groundglass attenuation, opacifications and atelectasis. Lung volumes are decreased. Suspect acute pneumonitis. 3. Patient is intubated. 4. Nasogastric tube in good position. 5. No pneumothorax. 6. No renal obstruction. 7. Significant fluid and air distention of the colon. There is no wall thickening or pneumatosis. The distal colon there is slight wall thickening and enhancement suggesting a mild colitis. With the increasing fluid and colon diameter ileus should be considered. 8. No free fluid. 9. Status post endovascular graft repair abdominal aorta, no complications. Laboratory Results WBC 4.07 10^3/uL (3.29-11.43) 11/21/23 11:05 RBC 4.13 10^6/uL (3.85-5.65) 11/21/23 11:05 Hgb 13.70 g/dL (11.27-16.99) 11/21/23 11:05 Hct 42.5 % (37-53) 11/21/23 11:05 MCV 102.9 fl (82-101) H 11/21/23 11:05 MCH 33.2 pg (27-33) H 11/21/23 11:05 MCHC 32.2 g/dL (30-55) 11/21/23 11:05 RDW 16.5 % (12.1-15.1) H 11/21/23 11:05 Plt Count 90 10^3/cmm (157-399) L 11/21/23 11:05 MPV 11.1 fL (7.4-10.4) H 11/21/23 11:05 Lymph % (Auto) Not Reportable 11/21/23 11:05 [place] % (Auto) Not Reportable 11/21/23 11:05 Lymph # (Auto) Not Reportable 11/21/23 11:05 [place] # (Auto) Not Reportable 11/21/23 11:05 Total Counted 100 (0-100) 11/21/23 11:05 Atypical Lymphs % 3.0 % (0-5) 11/21/23 11:05 Absolute Neutrophils 3.1 10^3/cmm (1.4-6.5) 11/21/23 11:05 Segmented Neutrophils 52 % 11/21/23 11:05 Abs Segm Neuts (Man) 2.1 10/cmm (1.6-7.1) 11/21/23 11:05 Band Neutrophils 24.0 % 11/21/23 11:05 Abs Band Neuts (Man) 1.0 10^3/cmm (0.0-1.2) 11/21/23 11:05 Absolute Lymphocytes 0.8 10^3/cmm (1.2-3.4) L 11/21/23 11:05 Lymphocytes (Manual) 17 % 11/21/23 11:05 Monocytes (Manual) 4.0 % 11/21/23 11:05 Absolute Monocytes 0.2 10^3/cmm (0.1-0.6) 11/21/23 11:05 Eosinophils (Manual) 0 % 11/21/23 11:05 Absolute Eosinophils 0.0 10^3/cmm (0.0-0.7) 11/21/23 11:05 Basophils (Manual) 0.0 % 11/21/23 11:05 Absolute Basophils 0.0 10^3/cmm (0.0-0.2) 11/21/23 11:05 Nucleated RBCs 2.0 /100WBC (0-1) H 11/21/23 11:05 Platelet Estimate Decreased (Normal) 11/21/23 11:05 Giant Platelets Trace 11/21/23 11:05 Anisocytosis 1+ H 11/21/23 11:05 Specimen Type Arterial 11/21/23 11:20 Sample Site Radial, right 11/21/23 11:20 ABG pH 7.34 (7.35-7.45) L 11/21/23 11:20 ABG pCO2 46.7 mmHg (35-45) H 11/21/23 11:20 ABG pO2 227.0 mmHg (80.0-100.0) H 11/21/23 11:20 ABG PO2/FiO2 Ratio 227 11/21/23 11:20 ABG HCO3 25.0 mmol/L (22-26) 11/21/23 11:20 ABG O2 Saturation 100.0 11/21/23 11:20 ABG Base Excess -1.2 mmol/L (-2.0-2.0) 11/21/23 11:20 Juan Test Pos 11/21/23 11:20 A-a O2 Gradient 55.5 mmHg (5-10) H 11/21/23 11:20 Hematocrit 41.1 % (42-52) L 11/21/23 11:20 Hgb O2 Saturation 98.0 % (95-100) 11/21/23 11:20 Carboxyhemoglobin 1.6 %THgb (0.4-20.1) 11/21/23 11:20 Methemoglobin 0.4 % (0.4-1.5) 11/21/23 11:20 Total Hemoglobin 13.4 g/dL (14-18) L 11/21/23 11:20 Sodium 134.0 mmol/L (131-143) 11/21/23 11:20 Potassium 4.4 mmol/L (3.5-5.0) 11/21/23 11:20 Glucose 102.0 mg/dL (70-115) 11/21/23 11:20 Ionized Calcium 1.2 mmol/L (1.1-1.4) 11/21/23 11:20 O2 Delivery Device Ambu 11/21/23 11:20 FiO2 100.0 % 11/21/23 11:20 Security Solutions Engineer ID [facility]h 11/21/23 11:20 Sodium 132 mmol/L (136-145) L 11/21/23 11:05 Potassium 4.5 mmol/L (3.5-5.1) 11/21/23 11:05 Chloride 98 mmol/L (98-107) 11/21/23 11:05 Carbon Dioxide 20 mmol/L (22-29) L 11/21/23 11:05 Anion Gap 18.5 (5-19) 11/21/23 11:05 BUN 32 mg/dL (8-23) H 11/21/23 11:05 Creatinine 0.8 mg/dL (0.7-1.2) 11/21/23 11:05 GFR Calculation 95.8 mL/min (90-130) 11/21/23 11:05 Glucose 105 mg/dL (65-115) 11/21/23 11:05 Calculated Osmolality 281 mOsm/kg (285-295) L 11/21/23 11:05 Lactic Acid 1.9 mmol/L (0.5-2.2) 11/21/23 11:05 Calcium 8.0 mg/dL (8.5-10.5) L 11/21/23 11:05 Magnesium 2.6 mg/dL (1.7-2.3) H 11/21/23 11:05 Total Bilirubin 1.3 mg/dL (0.15-1.2) H 11/21/23 11:05 AST 44 U/L (0-40) H 11/21/23 11:05 ALT 32 U/L (0-41) 11/21/23 11:05 Alkaline Phosphatase 77 U/L (40-130) 11/21/23 11:05 Troponin T Baseline 132 ng/L (0-15) H* 11/21/23 11:05 NT-Pro-B Natriuret Pep 2870 pg/mL (0-125) H 11/21/23 11:05 Total Protein 5.7 g/dL (6.6-8.7) L 11/21/23 11:05 Albumin 3.0 g/dL (3.5-5.2) L 11/21/23 11:05 Globulin 2.7 g/dL (1.3-4.6) 11/21/23 11:05 Lipase 9 U/L (13-60) L 11/21/23 11:05 Urine Color Dark yellow (Yellow) A 11/21/23 11:22 Urine Appearance Clear (CLEAR) 11/21/23 11:22 Urine pH 5.0 (5-7) 11/21/23 11:22 Ur Specific Malcom 1.020 (1.005-1.030) 11/21/23 11:22 Urine Protein Negative (Negative) 11/21/23 11:22 Urine Glucose (UA) Negative (Normal) 11/21/23 11:22 Urine Ketones Negative (Negative) 11/21/23 11:22 Urine Blood Negative (Negative) 11/21/23 11:22 Urine Nitrate Negative (Negative) 11/21/23 11:22 Urine Bilirubin 1+ (Negative) H 11/21/23 11:22 Urine Urobilinogen 1.0 mg/dL (Negative) 11/21/23 11:22 Ur Leukocyte Esterase Negative (Negative) 11/21/23 11:22 Amorphous Sediment Not Reportable 11/21/23 11:22 Salicylates < 0.3 mg/dL (3-10) L 11/21/23 11:05 Urine Opiates Screen Positive ng/mL (Negative) H 11/21/23 11:22 Acetaminophen < 5.0 ug/mL (10-30) L 11/21/23 11:05 Ur Barbiturates Screen Negative ng/mL (Negative) 11/21/23 11:22 Ur Phencyclidine Scrn Negative ng/mL (Negative) 11/21/23 11:22 Ur Amphetamines Screen Negative ng/mL (Negative) 11/21/23 11:22 U Benzodiazepines Scrn Negative ng/mL (Negative) 11/21/23 11:22 Urine Cocaine Screen Negative ng/mL (Negative) 11/21/23 11:22 U Marijuana (THC) Screen Negative ng/mL (Negative) 11/21/23 11:22 Ethyl Alcohol < 10 mg/dL (0-10) 11/21/23 11:05 Serum Ketones Negative (Negative) 11/21/23 11:05 Adenovirus (PCR) Cancelled 11/21/23 12:57 C. pneumoniae DNA (PCR) Cancelled 11/21/23 12:57 Coronavirus 229E (PCR) Cancelled 11/21/23 12:57 Human Metapneumovir PCR Cancelled 11/21/23 12:57 Influenza A (H1) PCR Cancelled 11/21/23 12:57 Influ A (H1/09) PCR Cancelled 11/21/23 12:57 Influenza A (H3) PCR Cancelled 11/21/23 12:57 Influenza Type A (PCR) Cancelled 11/21/23 12:57 M. pneumoniae (PCR) Cancelled 11/21/23 12:57 Parainfluenza 1 (PCR) Cancelled 11/21/23 12:57 Parainfluenza 2 (PCR) Cancelled 11/21/23 12:57 Parainfluenza 3 (PCR) Cancelled 11/21/23 12:57 Parainfluenza 4 (PCR) Cancelled 11/21/23 12:57 RSV Type A (PCR) Cancelled 11/21/23 12:57 RSV Type B (PCR) Cancelled 11/21/23 12:57 Entero/Rhino (PCR) Cancelled 11/21/23 12:57 SARS-CoV-2 (PCR) Cancelled 11/21/23 12:57 All radiology interpretation(s) finalized by discharge Discharge Plan Discharge Patient Disposition: Admitted As Inpatient Clinical Impression: Respiratory failure, Small cell lung cancer, right middle lobe, Sepsis, Acute metabolic encephalopathy, Pneumonia Condition: Stable Coding Level of Care Code ED Securities Compliance Examiner for Preeti Layne
[2023-11-21 11:33] LABS: Alveolar-Arterial Oxygen Gradi 55.5 mmHg (5-10); Blood Gas Operator Identificat AMH; Blood Gas Sample Site Radial, right; Oxygen Device AMBU; PO2 FiO2 Ratio Arterial Blood 227
[2023-11-21 11:35] LABS: Ketone (Acetest) Serum Negative (Negative)
--- NOTE | 2023-11-21 11:39 | CT_ITS ---
WS: [id number] CT CHEST, ABDOMEN AND PELVIS WITH CONTRAST HISTORY: trauma TECHNIQUE: Contiguous 5 mm axial imaging performed through the chest, abdomen and pelvis with IV cont rast, oral contrast has not been provided. Coronal and sagittal reformats chest. Coronal and sagittal reformats through the abdomen and pelvis. All CT scans at [facility] use at least one of the se dose optimization techniques: automated exposure control; mA and/or kV adjustment per patient size (includes targeted exams where dose is matched to clinical indication); or iterative reconstruction. CONTRAST: Omnipaque 350; 100 mL IV. DLP: 1444.43 mGy.cm COMPARISON: 06/04/[address]: Patient is intubated. Patient with a history of lung cancer. There is extensive pulmonary f ibrotic changes centered at the medial RIGHT lung. This has been previously described and thought to be related to patient's lung cancer treatment. There has been a progression otherwise bilaterally of patchy opacification) and groundglass attenuation. Small RIGHT pleural effusion. No pneumothorax. Levi g volumes are decreased. Mild atherosclerosis aorta. Normal size pulmonary artery. Proximally the pul monary artery is normal size. No RIGHT heart strain. No pericardial effusion. Nasogastric tube is not ed. Abdomen CT: Artifact through the abdomen by patient's arm placement. Gallbladder is slightly hydropic without adjacent inflammatory changes. Normal size spleen. Splenic granulomata. Mild pancreatic atro phy. RIGHT adrenal mass 2.4 x 2.7 cm is new since 06/04/2023. No LEFT adrenal mass. Mild bilateral sylvain al atrophy with perinephric stranding. Nonobstructing calcifications. Prior stent grafting of the abd ominal aorta. Stent graft appears appropriate. Proximal mesenteric arteries are normal. Nasogastric tube in the stomach. No small bowel obstruction. Increased air and fluid throughout the c olon. No ischemic changes. No pneumatosis. No appendicitis. No ascites or adenopathy in the abdomen or pelvis. Pelvic CT: No free fluid. Strange catheter present in the urinary bladder. No destructive bone lesions. CT/CT chest abdpel w/*[id number] IMPRESSION: 1. Patient is status post treatment for RIGHT lung cancer. Pulmonary fibrotic changes centrally are reidentified. 2. Acute bilateral groundglass attenuation, opacifications and atelectasis. Megan ng volumes are decreased. Suspect acute pneumonitis. 3. Patient is intubated. 4. Nasogastric tube in good position. 5. No pneumothorax. 6. No renal obstruction. 7. Significant fluid and air distention of the colon. There is no wall thicken ing or pneumatosis. The distal colon there is slight wall thickening and enhanc ement suggesting a mild colitis. With the increasing fluid and colon diameter i leus should be considered. 8. No free fluid. 9. Status post endovascular graft repair abdominal aorta, no complications.
[2023-11-21 11:40] LABS: Lactic Sepsis W/Reflex 1.9 mmol/L (0.5-2.2)
--- NOTE | 2023-11-21 11:45 | PC.NURSE ---
THIS NURSE CALLED PHARMACY TO CHECK COMPATIBILITY OF DRUGS VERSED AND PROPOFOL. SPOKE WITH PHARMACIST YU, HE VERIFIED THEY ARE COMPATIBLE AND OKAY TO RUN TOGETHER.
[2023-11-21] MEDS: midazolam hcl 100 MG/100 ML BAG IV (11:47)
[2023-11-21 11:50] LABS: Alanine Aminotransferase 32 U/L (0-41); Alkaline Phosphatase 77 U/L (40-130); Blood Urea Nitrogen 32 mg/dL (8-23); Carbon Dioxide 20 mmol/L (22-29); Chloride 98 mmol/L (98-107); Creatinine Clr Calc Pharmacy 91.3795; Globulin 2.7 g/dL (1.3-4.6); Glomerular Filtration Rate 95.8 mL/min (90-130); Glucose 105 mg/dL (65-115); Lipase 9 U/L (13-60); Magnesium 2.6 mg/dL (1.7-2.3); NT Pro B Type Natriuretic Pept 2870 pg/mL (0-125); Osmolality Calculated 281 mOsm/kg (285-295); Sodium 132 mmol/L (136-145); Total Bilirubin 1.3 mg/dL (0.15-1.2); Total Protein 5.7 g/dL (6.6-8.7); Troponin(5th) Baseline 132 ng/L (0-15)
[2023-11-21 11:51] LABS: Acetaminophen < 5.0 ug/mL (10-30); Alcohol Level < 10 mg/dL (0-10); Salicylate < 0.3 mg/dL (3-10)
[2023-11-21 11:52] LABS: Anion Gap 18.5 (5-19); Aspartate Amino Transferase 44 U/L (0-40); Potassium 4.5 mmol/L (3.5-5.1)
[2023-11-21] MEDS: vecuronium 10 mg SDV IVP (12:01)
[2023-11-21 12:11] LABS: Slide Review Slide Review Perform
[2023-11-21 12:12] LABS: Absolute Neutrophil 3.1 10^3/cmm (1.4-6.5); Absolute Segmented Neutrophil 2.1 10/cmm (1.6-7.1); Eosinophils 0 %; Giant Platelets Trace; Lymphocytes 17 %; Lymphocytes Absolute 0.8 10^3/cmm (1.2-3.4); Monocytes Absolute 0.2 10^3/cmm (0.1-0.6); Platelet Estimate Decreased (Normal); Segmented Neutrophils 52 %; Total Cells Counted 100 (0-100)
[2023-11-21 12:13] LABS: Anisocytosis 1+
[2023-11-21] MEDS: iohexol 350 mg/mL 500 mL Btl (per mL) IV (12:24)
[2023-11-21] MEDS: sodium chloride 0.9% 500 ML 999 ML IV (12:30)
--- NOTE | 2023-11-21 13:02 | PC.NURSE ---
Antibiotics ordered @1117 delayed d/t need second blood culture drawn and IV access
--- NOTE | 2023-11-21 13:05 | ECG_ITS ---
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 Measurements Intervals [place] Rate: 96 P: -5 AL: 212 QRS: -58 QRSD: 106 T: 52 QT: 338 QTc: 429 Interpretive Statements SINUS RHYTHM WITH FIRST DEGREE AV BLOCK PATTERN CONSISTENT WITH PULMONARY DISEASE LEFT ANTERIOR FASCICULAR BLOCK [QRS AXIS <= -45, QR IN I, RS IN II] Compared to ECG 11/21/2023 11:02:23 First degree AV block now present Sinus tachycardia no longer present Myocardial infarct finding no longer present Electronically Signed On 11-21-2023 17:11:31 CDT by Asuncion Benjamin M.D. [id number]
[2023-11-21 13:10] LABS: Bilirubin Urine 1+ (Negative); Blood Urine Negative (Negative); Glucose Urine UA Negative (Normal); Ketones Urine Negative (Negative); Leukocyte Esterase Urine Negative (Negative); Nitrate Urine Negative (Negative); Protein Urine Negative (Negative); Urine Appearance Clear (CLEAR); Urine Color Dark Yellow (Yellow)
[2023-11-21 13:18] LABS: Amphetamines Screen Urine Negative (Negative); Barbiturates Screen Urine Negative (Negative); Benzodiazepines Screen Urine Negative (Negative); Cocaine Screen Urine Negative (Negative); Opiate Screen Urine Positive (Negative); PCP Screen Urine Negative (Negative); THC Screen Urine Negative (Negative)
[2023-11-21] MEDS: linezolid premix 600 MG/300 ML PREMIX 300 MG IV (13:30)
[2023-11-21] MEDS: norepinephrine 4 MG/250 ML BAG 30 MG IV (13:32)
[2023-11-21] MEDS: meropenem 500 mg SDV IVP (13:54)
[2023-11-21] MEDS: sodium chloride 0.9% 1,000 ML 75 ML IV (13:54)
[2023-11-21] MEDS: acetaminophen 650 mg/20.3 mL UDC NG-TUBE (14:02)
[2023-11-21 14:10] LABS: Troponin 5 2HR 127.4 ng/L (0-15); Troponin 5 2HR Delta -4.6 ABS# (0-10)
[2023-11-21 14:16] LABS: Influenza A NEGATIVE (Negative); Influenza B NEGATIVE (Negative); Respiratory Syncytial Virus Ce NEGATIVE (Negative)
[2023-11-21 14:22] LABS: Covid PCR Positive (Negative)
[2023-11-21 14:26] LABS: Blood Gas Allen Test Pos; Blood Gas Operator Identificat AMH; Blood Gas Sample Site Radial, right; Blood Gas Sample Type Arterial; Blood Gas Tidal Volume 0.45; Methemoglobin 0.3 % (0.4-1.5); Oxygen Device VENT
[2023-11-21 14:28] LABS: ABG PCO2 46.4 mmHg (35-45); Alveolar-Arterial Oxygen Gradi 68.4 mmHg (5-10); Arterial Blood Gas Hematocrit 39.9 % (42-52); Base Excess ABG -3.9 mmol/L (-2.0-2.0); Carboxyhemoglobin 1.3 %THgb (0.4-20.1); HCO3 ABG 22.7 mmol/L (22-26); HGB O2 Sat 97.5 % (95-100); Ionized Calcium Level - ABG 1.1 mmol/L (1.1-1.4); PO2 FiO2 Ratio Arterial Blood 130; Potassium Level - ABG 3.6 mmol/L (3.5-5.0)
--- NOTE | 2023-11-21 15:24 | P.HP_ITS ---
Providers/Chief Complaint 2 Primary Care Provider: Lianet Hannah MD Chief Complaint: UNRESPONSIVE History of Present Illness Karl Martinez is a 68 year old male with past medical history of right middle lobe small cell carcinoma, metastasis to brain, Staphylococcus bacteremia in the past, MCA stroke, hypertension was brought into the ER via EMS today because he was found obtunded at home. 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 Most recently 2 weeks ago the dose was supposed to be increased from 600 3 times daily to 800 3 times daily. The last few days he was prescribed of oxycodone. was concerned about his mentation so she did not give him gabapentin yesterday and gave oxycodone 15 mg last night. Today morning patient was somnolent and was not able to wake up to physical or verbal stimulus hence EMS was called. When EMS arrived patient was found obtunded hence she was brought to the ER in unresponsive status where he was intubated. He was also found to have extensive diarrhea on presentation to the ER. He was found to be hypotensive for which she received 2 L of IV fluid bolus after which he was started on Levophed drip. As for the vitals at bedside patient has not been complaining of headache more than usual, photophobia, nausea, vomiting. Patient has been having diarrhea on and off. Patient has not been complaining of cough more than usual. Denies any difficulty in breathing or expectoration no sick contacts. She also denies of recent antibiotic use. Review of Systems 2 General: Reports: ROS unobtainable due to endotracheal tube Medications/Allergies Home Medications Medication Instructions Recorded Confirmed Last Taken Type aspirin 81 mg tablet,delayed 81 mg PO QAM 01/07/22 11/21/23 11/20/23 History release nitroglycerin 0.4 mg sublingual 0.4 mg sublingual Q5M PRN Chest 02/21/22 11/21/23 Unknown Rx tablet (Nitrostat) Pain #25 tabs ferrous sulfate 325 mg (65 mg 325 mg PO QPM 06/28/22 11/21/23 11/20/23 History iron) tablet cholecalciferol (vitamin D3) 125 125 mcg PO DAILY 08/09/22 11/21/23 11/20/23 History mcg (5,000 unit) capsule mecobalamin (vitamin B12) 500 mcg 500 mcg PO DAILY 08/09/22 11/21/23 11/20/23 History chewable tablet [id number] 150 mcg-vit K1 1 tab PO DAILY 08/09/22 11/21/23 11/20/23 History 30 mcg-lycop 300 mcg-lutein tablet (Centrum Minis Men 50 Plus) lorazepam 1 mg tablet 0.5 - 1 mg (0.5 - 1 x 1 mg) PO Q6H 12/16/22 11/21/23 Unknown Rx PRN Severe Nausea #30 tabs acetaminophen 650 mg 650 mg PO Q8H PRN pain or 12/17/22 11/21/23 06/04/23 History tablet,extended release (Pain inflammation Relief (acetaminophen)) metoprolol tartrate 25 mg tablet 12.5 mg (1/2 x 25 mg) PO BID #30 06/16/23 11/21/23 11/20/23 Rx tabs omeprazole 20 mg capsule,delayed 20 mg PO BID 90 days #180 caps 08/14/23 11/21/23 11/20/23 Rx release sertraline 25 mg tablet (Zoloft) 25 mg PO DAILY 90 days #90 tabs 08/15/23 11/21/23 11/20/23 Rx tizanidine 2 mg tablet 2 mg PO Q8H PRN muscle spasticity 08/15/23 11/21/23 Unknown Rx #90 tabs acetaminophen 300 mg-codeine 30 mg 1 tab PO Q8H PRN pain 7 days #21 10/13/23 11/21/23 Unknown Rx tablet tabs oxycodone 15 mg tablet 15 mg PO Q6H PRN pain 30 days #120 11/03/23 11/21/23 11/20/23 Rx tabs ascorbic acid (vitamin C) 500 mg 250 mg PO BID 11/21/23 11/21/23 11/20/23 History tablet (Vitamin C) gabapentin 300 mg capsule 300 mg PO TID 11/21/23 11/21/23 Unknown History Allergies Allergy/AdvReac Type Severity Reaction Status Date / Time Kqevoey-[id number]-CzQ Reductase Allergy Unknown Verified 11/20/23 09:17 Inhibitor PFSH Acute 2 PFSH: Medical History Falls frequently Frail elderly Small cell lung cancer Pneumonia Port-A-Cath in place Neutropenia Chronic back pain GERD (gastroesophageal reflux disease) Coronary artery disease Hypertension Abdominal aortic aneurysm Congenital umbilical hernia Carpal tunnel syndrome on both sides Past heart attack COPD (chronic obstructive pulmonary disease) Surgical History Hx of umbilical hernia repair History of tonsillectomy and adenoidectomy History of bilateral carpal tunnel release S/P AAA repair using bifurcation graft History of endovascular stent graft for abdominal aortic aneurysm (AAA) History of heart artery stent S/P rotator cuff repair Family History Family/Other Cancer Father CAD (coronary artery disease) Stroke Brother CAD (coronary artery disease) Brother CAD (coronary artery disease) Diabetes Sister CAD (coronary artery disease) Cancer Chronic kidney disease (CKD) Diabetes Sister Cancer Diabetes Mother Stroke Other Hyperlipidemia Hypertension Psychiatric illness Denies family history of Clotting disorder Dementia Suicide Anesthesia complication Bleeding disorder Lung disease Social History Smoking and tobacco/nicotine status: unknown if used tobacco/nicotine Quit status (tobacco/nicotine): has quit using Year quit tobacco: 2021 Former quit date comment: December 2021 Alcohol intake: never Substance/Drug Use: never Vitals/I&O/Wt Last Vital Signs Temp 101.5 F H 11/21/23 10:59 Pulse 95 11/21/23 13:50 Resp 19 H 11/21/23 14:42 BP 100/61 11/21/23 13:50 Pulse Ox 99 11/21/23 13:50 O2 Del Method Mechanical Ventilation 11/21/23 13:05 O2 Flow Rate 15 11/21/23 10:59 FiO2 60 11/21/23 14:42 11/21/23 11/21/23 11/21/23 06:59 14:59 22:59 Intake Total 2502.942 / 2502.942 49 / 2551.942 Balance 2502.942 / 2502.942 49 / 2551.942 Weight last 48 hrs Weight 86.183 kg Physical Exam 2 Narrative: General: Intubated, sedated HEENT: PERRLA, pupils bilaterally equal and reactive Chest: Bilateral rhonchi all over lung kiser with coarse crackles and rhonchi spread all over lung kiser and y CVS: S1-S2 regular, no murmurs, no tachycardia, no gallops, no rubs Abdomen: Soft, nontender, no organomegaly, bowel sounds present Neuro: No focal deficits, no facial deformity, intubated Urinary Catheter Management: Strange: Cath Placed During This Visit: yes Urinary Catheter Date of Insertion: 11/21/23 Urinary Catheter Time of Insertion: 11:40 Quick SOFA Score: Respiratory Rate: 16 Blood Pressure: 99/59 [place] Coma Scale: 3 qSOFA Score: 2 If qSOFA score 2 or greater, continue: PaO2/FiO2 Ratio (mmHg): 130 Blood Pressure Mean: 72 Norepinephrine Current Rate (?g/kg/min): 6 Bilirubin (mg/dl): 1.3 Platelets (x10?/ml): 90 Creatinine (mg/dl): 0.8 SOFA Score: 14 Evaluation: Current stage of sepsis: septic shock Sepsis stage criteria used: [facility] Sep-1 and Sepsis-3 Crystalloid fluids: 30 mL/kg crystalloid fluids ordered and initiated within 3 hours Blood cultures ordered: Yes Possible source: pulmonary Focused Exam: Vital signs: Temp Pulse Resp BP Pulse Ox O2 Del Method O2 Flow Rate 11/21/23 16:55 99/59 11/21/23 16:20 90 16 90/62 95 11/21/23 16:00 92 21 H 88/61 95 11/21/23 15:40 92 17 90/61 95 11/21/23 15:20 93 14 94/63 94 11/21/23 15:00 89 15 101/65 91 11/21/23 14:42 19 H 11/21/23 14:40 92 31 H 93/58 99 11/21/23 14:20 94 30 H 95/63 98 11/21/23 13:50 95 18 100/61 99 11/21/23 13:45 97 20 H 81/49 98 11/21/23 13:40 95 21 H 77/47 98 11/21/23 13:35 96 18 77/47 99 11/21/23 13:30 94 16 78/56 99 11/21/23 13:25 97 14 78/56 99 11/21/23 13:20 99 14 93/59 99 11/21/23 13:15 96 14 93/59 100 11/21/23 13:10 96 14 105/66 100 11/21/23 13:05 97 14 105/66 100 11/21/23 13:05 97 14 105/66 100 Mechanical Ventila tion 11/21/23 11:49 110 H 80/56 98 Mechanical Ventila tion 11/21/23 11:40 21 H 11/21/23 10:59 101.5 F H 120 H 24 H 118/78 97 Non-Rebreather 15 FiO2 11/21/23 16:55 11/21/23 16:20 11/21/23 16:00 11/21/23 15:40 11/21/23 15:20 11/21/23 15:00 11/21/23 14:42 60 11/21/23 14:40 11/21/23 14:20 11/21/23 13:50 11/21/23 13:45 11/21/23 13:40 11/21/23 13:35 11/21/23 13:30 11/21/23 13:25 11/21/23 13:20 11/21/23 13:15 11/21/23 13:10 11/21/23 13:05 11/21/23 13:05 11/21/23 11:49 11/21/23 11:40 100 11/21/23 10:59 Respiratory exam: crackles present, diminished lung sounds and mechanicaly ventilated Capillary refill: > 3 Seconds Date exam was performed: 11/21/23 Time exam was performed: 17:10 2 Sepsis Screen No Definite Risk 11/21/23 16:55 Respiratory Rate 16 breaths/min (12 - 18) 11/21/23 16:20 Blood Pressure 99/59 mmHg 11/21/23 16:55 Mandy Coma Scale Score 3 11/21/23 16:20 Quick SOFA Score 1 11/21/23 16:55 SOFA Score: 2 ABG PO2/FiO2 Ratio 130 11/21/23 14:15 Cl[place] Coma Scale Score 3 11/21/23 16:20 Blood Pressure Mean 72 mmHg 11/21/23 16:55 Total Bilirubin 1.3 mg/dL (0.15-1.2) H 11/21/23 11:05 Platelet Count 90 10^3/cmm (157-399) L 11/21/23 11:05 Creatinine 0.8 mg/dL (0.7-1.2) 11/21/23 11:05 Data 11/21/23 11:05 11/21/23 11:05 A&P Assessment and plan (1) Respiratory failure: Intubated because of concerns for respiratory failure in setting of metabolic encephalopathy leading to unresponsiveness. Oxygen supplementation keeping saturation over 90%. Check ABG. Appreciate CT chest done in the ER. (2) Septic shock: Keep mean artery pressure 65. Already received sepsis bolus in the ER. Start on normal saline at 75 cc/h. Wean Levophed drip keeping mean artery pressure as per goal. (3) Acute hypoxic respiratory failure: Most likely in combination of altered mental status along with pneumonitis as seen on CT. COVID-19 positive. Check sputum culture, urine Legionella, bacterial antigen, blood culture, MRSA swab. Empirically start patient on IV vancomycin and Zosyn and azithromycin for atypical coverage. De-escalate antibiotics as per culture sensitivities. (4) COVID-19: Hypoxia secondary to COVID-19 pneumonia: Severe disease. Oxygen supplementation keeping saturation over 88%. Dexamethasone 6 mg daily. Remdesivir to finish a 5-day course. Zinc daily DuoNeb every 6 hour, budesonide twice daily Pulmonary toilet with incentive spirometry flutter valve once patient is extubated. We will monitor inflammatory markers including CRP, D-dimer every 48 hours. Check D-dimer. Patient already had CT chest with contrast which is negative for PE. Not a CTA study done. Did have elevated troponin on admission so for now we will start on full dose Lovenox 1 mg/kg body weight every 12 hourly. Depending on the clinical picture and renal function within next 24 to 48 hours can plan for CTA. Last echocardiogram from March showed an EF of 60 to 65% without regional wall motion bradycardia, mild TR. Strict input output charting, daily weights. (5) Elevated troponin: Cannot rule out non-ST elevation AL. Concerns for type II AL. Echocardiogram to monitor EF and rule out regional wall motion abnormality. Check A1c, lipid panel. Continue with home dose of aspirin 81 mg daily. Statin as per lipid panel. (6) C. difficile colitis: Colitis seen on CT abdomen/pelvis. Extensive diarrhea. Start on 250 every 6 of oral vancomycin. Will plan to continue oral vancomycin for at least 2 weeks after completion of IV antibiotic course. (7) Acute metabolic encephalopathy: Most likely in setting of severe infection/COVID-19 along with high doses of gabapentin and oxycodone. Continue to monitor. Currently sedated. Will plan for daily sedation medication. (8) Port-A-Cath in place: (9) Small cell lung cancer: Qualifiers: Laterality: unspecified laterality Lung location: unspecified part of lung Qualified Code(s): C34.90 - Malignant neoplasm of unspecified part of unspecified bronchus or lung (10) Metastasis to brain: (11) MRSA nasal colonization: (12) Diarrhea: Plan Restart other chronic medication including Xanax as needed, sertraline. Restart gabapentin at a lower dose to avoid withdrawals at 100 mg 3 times daily. CODE STATUS: will be the DPOA. Full code. N.p.o. Full dose Lovenox will be sufficient for DVT prophylaxis Protonix OPD prophylaxis Attestations 2 Medical Necessity Statement*: Admission for than 2 midnights for management of respiratory failure, septic shock in setting of metabolic encephalopathy, pneumonitis in setting of COVID-19 while superadded bacterial infection cannot be ruled out, C. difficile colitis Critical Care Time: The high probability of a clinically significant, sudden or life threatening deterioration of the patient's [pulmonary, GI, infectious, cardiac] system(s) required my full and direct attention, intervention and personal management. The critical care time is as shown. This time is in addition to time spent performing any reported procedures but includes the following: [x] Data and vital sign review and interpretation [x] Patient assessment, examination and intervention [x] Documentation [x] Medication orders and management Critical Care Time (min): 90 Coding Level of Care Code Critical Care >/= 30 minutes Critical care time (in minutes): 90 The high probability of a clinically significant, sudden or life threatening deterioration, as referenced in this documentation, required my full and direct attention, intervention and personal management. The critical care time shown is in addition to time spent performing any reported separately billable procedures and includes the following: [x] Data and vital sign review and interpretation [x ] Patient assessment, examination and intervention [x] Medication orders and management [x] Patient/Family updates as able [x] Care Coordination and Documentation. Other Coding Information This patient has a high probability of clinically significant, sudden or life threatening deterioration of the patient's (neurological/pulmonary/cardiac/renal/ID/endocrine) systems required my full, direct attention, the highest level of physician preparedness for urgent intervention and personal management. I managed/supervised life or organ supporting interventions that required frequent physician assessment. I devoted my full attention in the ICU to the direct care of this patient for the period of time indicated above. Time I spent with family or surrogate(s) is included only if the patient was incapable of providing necessary information or participating in decision making. This time includes the following services provided: Telemetry review Mechanical Ventilation Hemodynamic interpretation, assessment and management Review and interpretation of CXR Review and interpretation of lab values Review and interpretation of microbiologic data and culture results Review of medications and administration Review and interpretation of Nutrition requirements and management Discussion of management with other consultants and services Clinical update to family members Diagnoses Respiratory failure J96.90 Septic shock A41.9; R65.21 Acute hypoxic respiratory failure J96.01 COVID-19 U07.1 Elevated troponin R79.89 C. difficile colitis A04.72 Acute metabolic encephalopathy G93.41 Port-A-Cath in place Z95.828 Small cell carcinoma of lung, unspecified laterality, unspecified part of lung C34.90 Laterality: unspecified laterality Lung location: unspecified part of lung Metastasis to brain C79.31 MRSA nasal colonization Z22.322 Diarrhea R19.7
[2023-11-21] MEDS: enoxaparin 100 mg/mL Syringe 90 MG SUBCUT (15:53)
[2023-11-21 15:54] LABS: Potassium, Radom Urine 52 mmol/L; Urine Random Chloride 113 mmol/L; Urine Random Sodium 108 mmol/L
[2023-11-21] MEDS: dexamethasone 4 mg/mL INJ 6 MG IVP (15:54)
[2023-11-21] MEDS: remdesivir 200 MG in sodium chloride 0.9% (100 ml) 100 ML 100 MG IV (15:56)
[2023-11-21 16:06] LABS: D Dimer 19.05 ug/mLFEU (0-0.59)
[2023-11-21 16:08] LABS: Procalcitonin 4.48 ng/mL (0-0.5)
[2023-11-21 16:39] LABS: C.Diff PCR (Lab) POSITIVE (Negative)
[2023-11-21 16:40] LABS: Clostridioides Difficile Toxin NEGATIVE (Negative)
--- NOTE | 2023-11-21 16:54 | PC.NURSE ---
report called to Jeff Dowd RN in ICU approx @1621, no further questions at end of report.
--- NOTE | 2023-11-21 17:42 | ECG_ITS ---
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: : 1955 Requested By: Dimas Granados Order Number: [id number] Reading MD: SYDNEE CURTIS Measurements Intervals [place] Rate: 91 P: -3 ND: 218 QRS: -59 QRSD: 100 T: 32 QT: 344 QTc: 423 Interpretive Statements SINUS RHYTHM WITH FIRST DEGREE AV BLOCK WITH OCCASIONAL VENTRICULAR PREMATURE COMPLEXES INCOMPLETE RIGHT BUNDLE BRANCH BLOCK [90+ ms QRS DURATION, TERMINAL R IN V1/V2, 40+ ms S IN I/aVL/V4/V5/V6] LEFT ANTERIOR FASCICULAR BLOCK [QRS AXIS <= -45, QR IN I, RS IN II] POSSIBLE ANTERIOR MYOCARDIAL INFARCTION , OF INDETERMINATE AGE [30 ms Q WAVE IN V3/V4, OR R < 0.2 mV IN V4] Compared to ECG 11/21/2023 12:59:09 Ventricular premature complex(es) now present Incomplete right bundle-branch block now present Myocardial infarct finding now present Electronically Signed On 11-23-2023 19:01:26 CDT by SYDNEE CURTIS [id number]
[2023-11-21] MEDS: vancomycin 125 mg Capsule 250 MG PO ×2 (17:49→21:45)
[2023-11-21] MEDS: pantoprazole 40 mg SDV IVP (17:50)
[2023-11-21] MEDS: norepinephrine 4 MG/250 ML BAG 45 MG IV (17:50)
--- NOTE | 2023-11-21 17:50 | PHA.VACGOAL ---
Vancomycin Goal - Goal Vancomycin Goal:: 10-15 mg/L Vancomycin Indication:: Pneumonia - Therapy Current therapy:: Pip/Tazo Day of therpy:: Day []of [] . Actual body weight (kg): 190 lb - Data Labs: WBC 4.07 10^3/uL (3.29-11.43) 11/21/23 11:05 RBC 4.13 10^6/uL (3.85-5.65) 11/21/23 11:05 Hgb 13.70 g/dL (11.27-16.99) 11/21/23 11:05 Hct 42.5 % (37-53) 11/21/23 11:05 MCV 102.9 fl (82-101) H 11/21/23 11:05 MCH 33.2 pg (27-33) H 11/21/23 11:05 MCHC 32.2 g/dL (30-55) 11/21/23 11:05 RDW 16.5 % (12.1-15.1) H 11/21/23 11:05 Sodium 132 mmol/L (136-145) L 11/21/23 11:05 Potassium 4.5 mmol/L (3.5-5.1) 11/21/23 11:05 Chloride 98 mmol/L (98-107) 11/21/23 11:05 Carbon Dioxide 20 mmol/L (22-29) L 11/21/23 11:05 Anion Gap 18.5 (5-19) 11/21/23 11:05 BUN 32 mg/dL (8-23) H 11/21/23 11:05 Creatinine 0.8 mg/dL (0.7-1.2) 11/21/23 11:05 GFR Calculation 95.8 mL/min (90-130) 11/21/23 11:05 Last dialysis session:: N/A Treatment plan:: new consult Regimen:: INITIAL DOSE 1500 MG Q18H Follow up:: WILL MONITOR RENAL FUNCTION AND CONTINUE TO FOLLOW UP DAILY
[2023-11-21] MEDS: piperacillin-tazobactam 3.375 GM in sodium chloride 0.9% (plus) 50 ML IV (18:25)
[2023-11-21] MEDS: vancomycin 1,500 MG/300 ML PIGGYBACK 200 MG IV (18:28)
[2023-11-21 19:37] LABS: Troponin 5 6HR 99.27 ng/L (0-15)
--- NOTE | 2023-11-21 19:37 | PC.NURSE ---
REceived patient from ER staff at 1729. Patient is intubated. Sedated with 2mg/hr of versed and on 16mcg/min of levophed. Unresponsive to painful stimuli. HR: 100, BP: 106/74, SPO2: 98% on 50%FIO2 ventilated, Temp: 98.1. After settling patient into ICU, was brought to beside. It is documented that patient arrived with belongings (dentures and medications), they are not with the patent, states that she has taken them home.
[2023-11-21 19:38] LABS: Troponin 5 6HR Delta -32.73 ng/L (0-12)
--- NOTE | 2023-11-21 19:40 | PC.NURSE ---
SHift SUmmary: uneventful shift, Has only been in ICU for 2 hours at the times of this note. Report given to Koby ROSEN, currently waiting on fentanyl form the pharmacy. Propofol has been started at 5mcg, beginning attempts to transition off of versed.
[2023-11-21] MEDS: ipratropium-albuterol 3 mL Neb INHALATION (20:01)
[2023-11-21] MEDS: budesonide 0.5 mg/2 mL Neb INHALATION (20:02)
[2023-11-21] MEDS: fentaNYL 1,000 MCG/100 ML BAG 2.5 MCG IV (21:14)
[2023-11-21] MEDS: gabapentin 100 mg Capsule PO (21:24)
[2023-11-21 21:44] LABS: Glucose Point of Care 215 mg/dL (70-110)
[2023-11-21 23:34] LABS: Vitamin B12 1753 pg/mL (232-1245)
[2023-11-22] VITALS (110 sets, daily range): BP systolic 68–154; BP diastolic 44–95; PULSE 62–90; RESP 15–16; TEMP 35–37; O2SAT 91–100; BMI 31.6
[2023-11-22 01:46] LABS: Glucose Point of Care 197 mg/dL (70-110)
[2023-11-22] MEDS: ipratropium-albuterol 3 mL Neb INHALATION ×4 (02:06→19:20)
--- NOTE | 2023-11-22 02:35 | PC.NURSE ---
Advised Dr. Valadez of a small ulcer on patient's buttocks. Received orders for optifoam dressing.
[2023-11-22] MEDS: chlorhexidine gluconate 4% Btl 118 mL 1 APPLIC TOPICAL (02:40)
[2023-11-22] MEDS: piperacillin-tazobactam 3.375 GM in sodium chloride 0.9% (plus) 50 ML IV ×3 (02:41→17:42)
[2023-11-22] MEDS: sodium chloride 0.9% 1,000 ML 75 ML IV ×2 (02:41→15:41)
[2023-11-22] MEDS: enoxaparin 100 mg/mL Syringe 90 MG SUBCUT ×2 (02:41→16:14)
[2023-11-22 04:22] LABS: ABG PCO2 35.7 mmHg (35-45); ABG PH Result 7.37 (7.35-7.45); Base Excess ABG -3.9 mmol/L (-2.0-2.0); Blood Gas Allen Test Pos; Blood Gas Operator Identificat ED; Blood Gas Sample Site Radial, right; Blood Gas Sample Type Arterial; Carboxyhemoglobin 0.9 %THgb (0.4-20.1); HCO3 ABG 20.8 mmol/L (22-26); HGB O2 Sat 98.6 % (95-100); Ionized Calcium Level - ABG 1.1 mmol/L (1.1-1.4); Oxygen Device VENT; Oxygen Saturation ABG > 100.0; PO2 FiO2 Ratio Arterial Blood 842; Potassium Level - ABG 2.9 mmol/L (3.5-5.0); Total Hemoglobin 12.1 g/dL (14-18)
[2023-11-22 06:22] LABS: Basophils % 1.1 %; Hematocrit 34.9 % (37-53); Lymphocytes # 0.2 10^3/uL (0.8-4.8); Lymphocytes % 5.4 %; Mean Corpuscular HGB Conc 32.7 g/dL (30-55); Mean Corpuscular Hemoglobin 33.4 pg (27-33); Mean Corpuscular Volume 102.3 fl (82-101); Mean Platelet Volume 11.5 fL (7.4-10.4); Monocytes # 0.1 10^3/uL (0.2-0.9); Monocytes % 2.4 %; Neutrophils # 3.37 10^3/uL (1.8-7.7); Neutrophils % 90.8 %; Nucleated Red Blood Cells % 0 %; Platelet Count 87 10^3/cmm (157-399); Red Blood Count 3.41 10^6/uL (3.85-5.65); Red Cell Distribution Width 15.8 % (12.1-15.1); White Blood Count 3.71 10^3/uL (3.29-11.43)
[2023-11-22] MEDS: norepinephrine 4 MG/250 ML BAG 37.5 MG IV ×2 (06:34)
[2023-11-22] MEDS: aspirin 81 mg EC Tablet PO (06:40)
[2023-11-22 06:46] LABS: Alanine Aminotransferase 35 U/L (0-41); Albumin Level 2.5 g/dL (3.5-5.2); Alkaline Phosphatase 59 U/L (40-130); Anion Gap 17.1 (5-19); Aspartate Amino Transferase 54 U/L (0-40); Blood Urea Nitrogen 25 mg/dL (8-23); Calcium 7.2 mg/dL (8.5-10.5); Carbon Dioxide 19 mmol/L (22-29); Chloride 105 mmol/L (98-107); Chol HDL Ratio 2.18 mg/dL (1.0-5.00); Cholesterol 109 mg/dL (0-200); Globulin 2.5 g/dL (1.3-4.6); Glomerular Filtration Rate 133.6 mL/min (90-130); Glucose 225 mg/dL (65-115); HDL Cholesterol 50 mg/dL (60-100); LDL Cholesterol Calculated 42 mg/dL (50-129); LDL HDL Ratio 0.84 RATIO (0.00-3.22); Magnesium 2.3 mg/dL (1.7-2.3); Osmolality Calculated 297 mOsm/kg (285-295); Phosphorus 3.4 mg/dL (2.5-4.5); Potassium 3.1 mmol/L (3.5-5.1); Sodium 138 mmol/L (136-145); Total Bilirubin 0.7 mg/dL (0.15-1.2); Triglycerides 83 mg/dL (0-150)
[2023-11-22 06:47] LABS: Procalcitonin 18.28 ng/mL (0-0.5)
[2023-11-22 06:52] LABS: Estmated Average Glucose 114; Hemoglobin A1C 5.6 % (4.0-6.0)
[2023-11-22] MEDS: propofol 1,000 MG/100 ML INJ 5.17 MG IV (08:10)
[2023-11-22] MEDS: budesonide 0.5 mg/2 mL Neb INHALATION ×2 (08:19→19:20)
[2023-11-22 09:04] LABS: Folate Level > 20.0 ng/mL (4.5-32.2)
[2023-11-22] MEDS: sertraline 50 mg Tablet 25 MG PO (09:34)
[2023-11-22] MEDS: zinc gluconate 50 mg Tablet PO (09:34)
[2023-11-22] MEDS: gabapentin 100 mg Capsule PO ×3 (09:34→21:13)
[2023-11-22] MEDS: vancomycin 100 mg/1 mL Oral Syringe 250 MG PO ×4 (09:35→21:13)
--- NOTE | 2023-11-22 09:57 | PC.NURSE ---
repositioned at this time sx moderate amt salter sputum og tube clamped at this time head of bed elevated 30 degree at bedside , isolation covid, rectal tube in place dark green stool and lópez nadege urine noted
[2023-11-22] MEDS: lidocaine 1% 5 ML in potassium chloride premix 100 ML 26.25 ML IV ×2 (10:24→14:12)
[2023-11-22] MEDS: vancomycin 1,500 MG/300 ML PIGGYBACK 200 MG IV (12:36)
[2023-11-22] MEDS: norepinephrine 4 MG/250 ML BAG 22.5 MG IV (14:31)
--- NOTE | 2023-11-22 15:30 | XRR_ITS ---
PROCEDURE INFORMATION: Exam: XR Chest Exam date and time: 11/22/2023 3:34 PM Age: 68 years old Clinical indication: Shortness of breath; Patient HX: Fluid retention; Covid +; Vent maintenance; HX cardiac stent; Left port placement TECHNIQUE: Imaging protocol: Radiologic exam of the chest. Views: 1 view. COMPARISON: CT chest abdpel w/*[id number] 11/21/2023 12:13 PM FINDINGS: Tubes, catheters and devices: Low-lying ETT projecting 12 mm superior to the yrn. Distal G-tube is positioned in the left upper quadrant abdomen in the expected location of the stomach fundus. Central venous catheter tip projects over the expected location of the junction of the brachiocephalic vein and superior vena cava. Lungs: Patchy bilateral pulmonary opacities. Pleural spaces: Blunting of the costophrenic angles is suggestive of small pleural effusions. Heart/Mediastinum: The heart is obscured by the pulmonary opacities. Bones/joints: Unremarkable. XR/XR chest 1V portable [id number] IMPRESSION: 1. Low-lying ETT projecting 12 mm superior to the yrn. 2. Patchy bilateral pulmonary opacities. 3. Blunting of the costophrenic angles is suggestive of small pleural effusions. 4. Central venous catheter tip projects over the expected location of the junction of the brachiocephalic vein and superior vena cava.
--- NOTE | 2023-11-22 15:56 | P.PN_ITS ---
Subjective 2 Subjective: No acute events overnight. Seen with multiple family members at bedside. Currently on ventilator with ventilator settings of FiO2 45%, tidal volume of 500, PEEP of 5, saturating more than 95%. Currently on Levophed of 8 being weaned down. Overnight was on Levophed of 12. Has remained afebrile. Heart rate stable. Continues to have diarrhea through rectal tube. Vitals/I&O/Wt Last Vital Signs Temp 98.6 F 11/22/23 00:00 Pulse 68 11/22/23 15:52 Resp 15 11/22/23 13:51 BP 129/78 11/22/23 12:15 Pulse Ox 99 11/22/23 13:51 O2 Del Method Mechanical Ventilation 11/22/23 13:47 O2 Flow Rate 15 11/21/23 10:59 FiO2 35 11/22/23 13:51 11/22/23 11/22/23 11/22/23 06:59 14:59 22:59 Intake Total 1518.232 / 4571.199 1078.401 / 1078.401 975 / 2053.401 Output Total 600 / 1600 Balance 918.232 / 2971.199 1078.401 / 1078.401 975 / 2053.401 Weight last 48 hrs Weight 91.464 kg Weight 91.464 kg Weight 91.8 kg Weight 86.183 kg Physical Exam 2 Narrative: General: Intubated, sedated HEENT: PERRLA, pupils bilaterally equal and reactive Chest: Bilateral rhonchi all over lung kiser with coarse crackles and rhonchi spread all over lung kiser and y CVS: S1-S2 regular, no murmurs, no tachycardia, no gallops, no rubs Abdomen: Soft, nontender, no organomegaly, bowel sounds present Neuro: No focal deficits, no facial deformity, intubated Const: GENERAL APPEARANCE: patient mechanically ventilated Resp: AUSCULTATION: crackles and diminished lung sounds Urinary Catheter Management: Strange: Cath Placed During This Visit: yes Reason for Continuing Indwelling Catheter: Accurate Measurement of Urinary Output in Critically Ill Patients Urinary Catheter Date of Insertion: 11/21/23 Urinary Catheter Time of Insertion: 11:40 Data 11/22/23 05:47 11/22/23 05:47 Micro: Microbiology 11/21/23 13:30 Blood Culture - Preliminary Blood NEGATIVE TO DATE 11/21/23 13:51 Blood Culture - Preliminary Blood NEGATIVE TO DATE 11/21/23 11:25 Gram Stain - Final Sputum - Endotracheal Tube Aspirate Sputum Culture - Preliminary 11/21/23 11:22 Bacterial Antigens - Final Urine Kidney 11/21/23 11:22 Legionella Urinary Antigen - Final Unknown Source A&P Assessment and plan (1) Respiratory failure: Intubated because of concerns for respiratory failure in setting of metabolic encephalopathy leading to unresponsiveness. Oxygen supplementation keeping saturation over 90%. Concerns for pneumonitis on CT chest done in the ER. Keep ventilated for now. Patient has an extensive secretions. Sedation vacation daily. Sedation with propofol and fentanyl. (2) Septic shock: Keep mean artery pressure 65. Continue with normal saline at 75 cc/h. Wean Levophed drip keeping mean artery pressure as per goal. (3) Acute hypoxic respiratory failure: Most likely in combination of altered mental status along with pneumonitis as seen on CT. COVID-19 positive. Urine Legionella bacterial antigen negative. Sputum culture, blood culture pending. Check MRSA swab. Empirically start patient on IV vancomycin and Zosyn and azithromycin for atypical coverage. De-escalate antibiotics as per culture sensitivities. Discontinue vancomycin if MRSA swab negative. (4) COVID-19: Hypoxia secondary to COVID-19 pneumonia: Severe disease. Oxygen supplementation keeping saturation over 88%. Dexamethasone 6 mg daily. Remdesivir to finish a 5-day course. Zinc daily DuoNeb every 6 hour, budesonide twice daily Pulmonary toilet with incentive spirometry flutter valve once patient is extubated. We will monitor inflammatory markers including CRP, D-dimer every 48 hours. D-dimer extremely elevated. Patient already had CT chest with contrast which is negative for PE. Not a CTA study done. Did have elevated troponin on admission so for now we will start on full dose Lovenox 1 mg/kg body weight every 12 hourly. Depending on the clinical picture and renal function within next 24 to 48 hours can plan for CTA. Continue monitors D-dimer every 48 hours for now. Last echocardiogram from March showed an EF of 60 to 65% without regional wall motion bradycardia, mild TR. Strict input output charting, daily weights. (5) Elevated troponin: Cannot rule out non-ST elevation KS. Concerns for type II KS. Echocardiogram to monitor EF and rule out regional wall motion abnormality. Appreciate A1c, lipid panel. Continue with home dose of aspirin 81 mg daily. (6) C. difficile colitis: Colitis seen on CT abdomen/pelvis. Extensive diarrhea. Start on 250 every 6 hr of oral vancomycin. Will plan to continue oral vancomycin for at least 2 weeks after completion of IV antibiotic course. (7) Acute metabolic encephalopathy: Most likely in setting of severe infection/COVID-19 along with high doses of gabapentin and oxycodone. Continue to monitor. Currently sedated. Will plan for daily sedation medication. (8) Port-A-Cath in place: (9) Small cell lung cancer: Qualifiers: Laterality: unspecified laterality Lung location: unspecified part of lung Qualified Code(s): C34.90 - Malignant neoplasm of unspecified part of unspecified bronchus or lung (10) Metastasis to brain: (11) MRSA nasal colonization: (12) Diarrhea: Plan Restart other chronic medication including Xanax as needed, sertraline. Restart gabapentin at a lower dose to avoid withdrawals at 100 mg 3 times daily. Replace potassium. Recheck BMP later in the day. CODE STATUS: will be the DPOA. Full code. N.p.o. Full dose Lovenox will be sufficient for DVT prophylaxis Protonix OPD prophylaxis Attestations 2 Medical Necessity Statement*: Requires further hospitalization for management of hypoxic respiratory failure with septic shock in setting of pneumonia, COVID-19, C. difficile colitis in a patient with history of lung cancer with brain metastasis currently on mechanical ventilation Critical Care Time: The high probability of a clinically significant, sudden or life threatening deterioration of the patient's [pulmonary, cardiac, GI] system(s) required my full and direct attention, intervention and personal management. The critical care time is as shown. This time is in addition to time spent performing any reported procedures but includes the following: [x] Data and vital sign review and interpretation [x] Patient assessment, examination and intervention [x] Documentation [x] Medication orders and management Critical Care Time (min): 80 Coding Level of Care Code Critical Care >/= 30 minutes Critical care time (in minutes): 80 The high probability of a clinically significant, sudden or life threatening deterioration, as referenced in this documentation, required my full and direct attention, intervention and personal management. The critical care time shown is in addition to time spent performing any reported separately billable procedures and includes the following: [x] Data and vital sign review and interpretation [x ] Patient assessment, examination and intervention [x] Medication orders and management [x] Patient/Family updates as able [x] Care Coordination and Documentation. Other Coding Information This patient has a high probability of clinically significant, sudden or life threatening deterioration of the patient's (neurological/pulmonary/cardiac/renal/ID/endocrine) systems required my full, direct attention, the highest level of physician preparedness for urgent intervention and personal management. I managed/supervised life or organ supporting interventions that required frequent physician assessment. I devoted my full attention in the ICU to the direct care of this patient for the period of time indicated above. Time I spent with family or surrogate(s) is included only if the patient was incapable of providing necessary information or participating in decision making. This time includes the following services provided: Telemetry review Mechanical Ventilation Hemodynamic interpretation, assessment and management Review and interpretation of CXR Review and interpretation of lab values Review and interpretation of microbiologic data and culture results Review of medications and administration Review and interpretation of Nutrition requirements and management Discussion of management with other consultants and services Clinical update to family members Diagnoses Respiratory failure J96.90 Septic shock A41.9; R65.21 Acute hypoxic respiratory failure J96.01 COVID-19 U07.1 Elevated troponin R79.89 C. difficile colitis A04.72 Acute metabolic encephalopathy G93.41 Port-A-Cath in place Z95.828 Small cell carcinoma of lung, unspecified laterality, unspecified part of lung C34.90 Laterality: unspecified laterality Lung location: unspecified part of lung Metastasis to brain C79.31 MRSA nasal colonization Z22.322 Diarrhea R19.7
[2023-11-22] MEDS: dexamethasone 4 mg/mL INJ 6 MG IVP (16:14)
[2023-11-22] MEDS: remdesivir 100 MG in sodium chloride 0.9% (100 ml) 100 ML IV (17:42)
[2023-11-22] MEDS: pantoprazole 40 mg SDV IVP (17:43)
[2023-11-22 17:52] LABS: NT Pro B Type Natriuretic Pept 813 pg/mL (0-125); Procalcitonin 15.45 ng/mL (0-0.5)
[2023-11-22 18:03] LABS: Blood Urea Nitrogen 23 mg/dL (8-23); Calcium 7.6 mg/dL (8.5-10.5); Carbon Dioxide 19 mmol/L (22-29); Chloride 104 mmol/L (98-107); Creatinine Clr Calc Pharmacy 93.9833; Glomerular Filtration Rate 164.9 mL/min (90-130); Glucose 188 mg/dL (65-115); Osmolality Calculated 291 mOsm/kg (285-295); Sodium 136 mmol/L (136-145)
[2023-11-22 18:04] LABS: Anion Gap 17.1 (5-19); Potassium 4.1 mmol/L (3.5-5.1)
--- NOTE | 2023-11-22 19:43 | PC.RESP ---
Suctioning ETT hardly no secretions. What little comes is yellow thin. Oral suction is thick yellow with blood tinged color.
[2023-11-23] VITALS (100 sets, daily range): BP systolic 76–127; BP diastolic 45–75; PULSE 64–90; RESP 15–23; TEMP 36.4–36.8; O2SAT 91–98; BMI 33.6
[2023-11-23] MEDS: propofol 1,000 MG/100 ML INJ 5.17 MG IV ×2 (02:08→15:46)
[2023-11-23] MEDS: chlorhexidine gluconate 4% Btl 118 mL 1 APPLIC TOPICAL ×2 (02:08→22:10)
[2023-11-23] MEDS: piperacillin-tazobactam 3.375 GM in sodium chloride 0.9% (plus) 50 ML IV ×3 (02:08→18:18)
[2023-11-23] MEDS: fentaNYL 1,000 MCG/100 ML BAG 7.5 MCG IV ×2 (02:09→15:34)
[2023-11-23] MEDS: ipratropium-albuterol 3 mL Neb INHALATION ×4 (02:50→20:08)
[2023-11-23] MEDS: enoxaparin 100 mg/mL Syringe 90 MG SUBCUT ×2 (03:51→15:33)
[2023-11-23 04:03] LABS: Basophils % 0.7 %; Hematocrit 28.5 % (37-53); Lymphocytes # 0.3 10^3/uL (0.8-4.8); Lymphocytes % 7.8 %; Mean Corpuscular HGB Conc 32.6 g/dL (30-55); Mean Corpuscular Hemoglobin 33.1 pg (27-33); Mean Corpuscular Volume 101.4 fl (82-101); Monocytes # 0.1 10^3/uL (0.2-0.9); Monocytes % 2.7 %; Neutrophils # 3.48 10^3/uL (1.8-7.7); Neutrophils % 85.1 %; Nucleated Red Blood Cells % 0 %; Platelet Count 69 10^3/cmm (157-399); Red Blood Count 2.81 10^6/uL (3.85-5.65); Red Cell Distribution Width 16.1 % (12.1-15.1); White Blood Count 4.09 10^3/uL (3.29-11.43)
[2023-11-23 04:24] LABS: D Dimer 3.52 ug/mLFEU (0-0.59)
[2023-11-23 04:25] LABS: ABG PCO2 33.8 mmHg (35-45); Arterial Blood Gas Hematocrit 30.5 % (42-52); Base Excess ABG -3.1 mmol/L (-2.0-2.0); Blood Gas Allen Test Pos; Blood Gas Sample Type Arterial; Carboxyhemoglobin 1.3 %THgb (0.4-20.1); HCO3 ABG 21.1 mmol/L (22-26); HGB O2 Sat 91.5 % (95-100); Ionized Calcium Level - ABG 1.2 mmol/L (1.1-1.4); Methemoglobin 0.3 % (0.4-1.5); Potassium Level - ABG 3.7 mmol/L (3.5-5.0)
[2023-11-23 04:27] LABS: Alveolar-Arterial Oxygen Gradi 12.4 mmHg (5-10); Blood Gas Operator Identificat ED; Blood Gas Sample Site Radial, right; Oxygen Device VENT; PO2 FiO2 Ratio Arterial Blood 225
[2023-11-23 04:29] LABS: Alanine Aminotransferase 30 U/L (0-41); Albumin Level 2.2 g/dL (3.5-5.2); Alkaline Phosphatase 44 U/L (40-130); Anion Gap 14.9 (5-19); Aspartate Amino Transferase 34 U/L (0-40); Blood Urea Nitrogen 21 mg/dL (8-23); Calcium 7.6 mg/dL (8.5-10.5); Carbon Dioxide 20 mmol/L (22-29); Chloride 108 mmol/L (98-107); Creatinine Clr Calc Pharmacy 93.9833; Globulin 2.2 g/dL (1.3-4.6); Glomerular Filtration Rate 164.9 mL/min (90-130); Glucose 121 mg/dL (65-115); Osmolality Calculated 292 mOsm/kg (285-295); Potassium 3.9 mmol/L (3.5-5.1); Sodium 139 mmol/L (136-145); Total Bilirubin 0.3 mg/dL (0.15-1.2); Total Protein 4.4 g/dL (6.6-8.7)
[2023-11-23 05:07] LABS: C Reactive Protein 4.1 mg/L (0.0-4.9)
[2023-11-23] MEDS: sodium chloride 0.9% 1,000 ML 75 ML IV (05:54)
[2023-11-23] MEDS: aspirin 81 mg EC Tablet PO (05:56)
[2023-11-23] MEDS: vancomycin 1,500 MG/300 ML PIGGYBACK 200 MG IV ×2 (05:56→23:22)
[2023-11-23] MEDS: gabapentin 100 mg Capsule PO ×3 (08:29→20:16)
[2023-11-23] MEDS: zinc gluconate 50 mg Tablet PO (08:29)
[2023-11-23] MEDS: sertraline 50 mg Tablet 25 MG PO (08:29)
[2023-11-23] MEDS: vancomycin 100 mg/1 mL Oral Syringe 250 MG PO ×4 (08:29→20:16)
[2023-11-23] MEDS: budesonide 0.5 mg/2 mL Neb INHALATION ×2 (08:38→20:08)
--- NOTE | 2023-11-23 09:09 | XRR_ITS ---
PROCEDURE INFORMATION: Exam: XR Chest Exam date and time: 11/23/2023 9:59 AM Age: 68 years old Clinical indication: Condition or disease; Other: Covid follow up; Prior surgery; Surgery date: 6+ months; Surgery type: Cardiac stent, left port TECHNIQUE: Imaging protocol: Radiologic exam of the chest. Views: 1 view. COMPARISON: CR (CHEST, ) 11/22/2023 3:34 PM FINDINGS: Lungs: Low lung volumes seen. Diffuse parenchymal densities are seen in the right perihilar region. These findings were seen on prior CT examination of the chest and appears similar. Scattered interstitial densities in the left lung. Pleural spaces: Elevated right hemidiaphragm. No pleural effusion. No pneumothorax. Heart/Mediastinum: Unremarkable. No cardiomegaly. Bones/joints: Unremarkable. Endotracheal tube is 5.1 cm above the yrn NG tube extends into the stomach. Left central line extends into the SVC XR/XR chest 1V portable [id number] IMPRESSION: 1. Large parenchymal densities right perihilar region stable since prior 2. Endotracheal tube is above the yrn. 3. NG tube extends into the stomach. 4. Left central line is in the SVC 5. Interstitial densities in the left lung
[2023-11-23] MEDS: albumin 25 G/100 ML BAG 60 G IV ×2 (09:41→16:31)
--- NOTE | 2023-11-23 10:40 | P.PN_ITS ---
Subjective 2 Subjective: No acute events overnight. Has remained hemodynamically stable and afebrile. Currently on 2 more Levophed, fentanyl 75 and propofol of 10. at bedside. Patient is awake and following simple directions. Continues to have extensive secretions from the ET tube, document urine output of around 1100 cc in last 24 hours. Current ventilator settings of FiO2 of 30%, PEEP of 5, tidal volume of 500 saturating at 95%. Vitals/I&O/Wt Last Vital Signs Temp 98.3 F 11/23/23 08:45 Pulse 69 11/23/23 08:58 Resp 18 11/23/23 10:27 BP 98/58 11/23/23 08:45 Pulse Ox 94 11/23/23 10:27 O2 Del Method Mechanical Ventilation 11/23/23 08:38 O2 Flow Rate 15 11/21/23 10:59 FiO2 30 11/23/23 10:27 11/22/23 11/23/23 11/23/23 22:59 06:59 14:59 Intake Total 1434.875 / 2513.276 1235.296 / 3748.572 330 / 330 Output Total 800 / 800 350 / 1150 Balance 634.875 / 1713.276 885.296 / 2598.572 330 / 330 Weight last 48 hrs Weight 97.5 kg Weight 97.5 kg Weight 91.464 kg Weight 91.464 kg Weight 91.8 kg Weight 86.183 kg Physical Exam 2 Narrative: General: Intubated, sedated HEENT: PERRLA, pupils bilaterally equal and reactive Chest: Bilateral rhonchi all over lung kiser with coarse crackles and rhonchi spread all over lung kiser and y CVS: S1-S2 regular, no murmurs, no tachycardia, no gallops, no rubs Abdomen: Soft, nontender, no organomegaly, bowel sounds present Neuro: No focal deficits, no facial deformity, intubated Const: GENERAL APPEARANCE: patient mechanically ventilated Resp: AUSCULTATION: crackles and diminished lung sounds Urinary Catheter Management: Strange: Cath Placed During This Visit: yes Reason for Continuing Indwelling Catheter: Accurate Measurement of Urinary Output in Critically Ill Patients Urinary Catheter Date of Insertion: 11/21/23 Urinary Catheter Time of Insertion: 11:40 Data 11/23/23 03:33 11/23/23 03:33 Micro: Microbiology 11/21/23 13:30 Blood Culture - Preliminary Blood NEGATIVE TO DATE 11/21/23 13:51 Blood Culture - Preliminary Blood NEGATIVE TO DATE 11/21/23 11:25 Gram Stain - Final Sputum - Endotracheal Tube Aspirate Sputum Culture - Preliminary 11/21/23 11:22 Bacterial Antigens - Final Urine Kidney A&P Assessment and plan (1) Respiratory failure: Intubated because of concerns for respiratory failure in setting of metabolic encephalopathy leading to unresponsiveness. Oxygen supplementation keeping saturation over 90%. Concerns for pneumonitis on CT chest done in the ER. Keep ventilated for now. Patient has an extensive secretions. Sedation vacation daily. Sedation with propofol and fentanyl. (2) Septic shock: Keep mean artery pressure 65. Continue with normal saline at 75 cc/h. Wean Levophed drip keeping mean artery pressure as per goal. (3) Acute hypoxic respiratory failure: Most likely in combination of altered mental status along with pneumonitis as seen on CT. COVID-19 positive. Urine Legionella bacterial antigen negative. Sputum culture, blood culture pending. Check MRSA swab. Empirically start patient on IV vancomycin and Zosyn and azithromycin for atypical coverage. De-escalate antibiotics as per culture sensitivities. Discontinue vancomycin if MRSA swab negative. (4) COVID-19: Hypoxia secondary to COVID-19 pneumonia: Severe disease. Oxygen supplementation keeping saturation over 88%. Dexamethasone 6 mg daily. Remdesivir to finish a 5-day course. Zinc daily DuoNeb every 6 hour, budesonide twice daily Pulmonary toilet with incentive spirometry flutter valve once patient is extubated. We will monitor inflammatory markers including CRP, D-dimer every 48 hours. D-dimer extremely elevated. Patient already had CT chest with contrast which is negative for PE. Not a CTA study done. Did have elevated troponin on admission so for now we will start on full dose Lovenox 1 mg/kg body weight every 12 hourly. Depending on the clinical picture and renal function within next 24 to 48 hours can plan for CTA. Continue monitors D-dimer every 48 hours for now. Last echocardiogram from March showed an EF of 60 to 65% without regional wall motion bradycardia, mild TR. Strict input output charting, daily weights. (5) Elevated troponin: Cannot rule out non-ST elevation IA. Concerns for type II [place]. Echocardiogram to monitor EF and rule out regional wall motion abnormality. Appreciate A1c, lipid panel. Continue with home dose of aspirin 81 mg daily. (6) C. difficile colitis: Colitis seen on CT abdomen/pelvis. Extensive diarrhea. Start on 250 every 6 hr of oral vancomycin. Will plan to continue oral vancomycin for at least 2 weeks after completion of IV antibiotic course. (7) Acute metabolic encephalopathy: Most likely in setting of severe infection/COVID-19 along with high doses of gabapentin and oxycodone. Continue to monitor. Currently sedated. Will plan for daily sedation medication. (8) Port-A-Cath in place: (9) Small cell lung cancer: Qualifiers: Laterality: unspecified laterality Lung location: unspecified part of lung Qualified Code(s): C34.90 - Malignant neoplasm of unspecified part of unspecified bronchus or lung (10) Metastasis to brain: (11) MRSA nasal colonization: (12) Diarrhea: Plan Restart other chronic medication including Xanax as needed, sertraline. Restart gabapentin at a lower dose to avoid withdrawals at 100 mg 3 times daily. Replace potassium. Recheck BMP later in the day. CODE STATUS: will be the DPOA. Full code. N.p.o. Full dose Lovenox will be sufficient for DVT prophylaxis Protonix OPD prophylaxis Plan for the day: Patient on minimal ventilator settings still continues to have extensive secretions. Stop IV fluids. IV Lasix 40 mg one-time. Depending on the urine output and hemodynamics may repeat another dose of Lasix in the evening. Start on albumin every 8 hourly. Follow-up cultures. For now continue with treatment for COVID-19 with remdesivir and dexamethasone along with nebulization treatment. CRP trending down. Continue to monitor CRP every 48 hours. Continues to have extensive diarrhea. Continue with oral vancomycin for C. difficile. Continue with IV antibiotics. Follow-up sputum culture. Strict input output charting. D-dimer trending down. Continue with full dose Lovenox. Recheck troponin. Repeat ABG and chest x-ray daily for now. Patient most likely will need to be extubated on low-dose fentanyl given extensive pain prior to the respiratory failure in setting of shingles. Keep mean artery pressure 65. Wean Levophed accordingly. Attestations 2 Medical Necessity Statement*: Requires further hospitalization for management of septic shock, respiratory failure in setting of bilateral pneumonia, COVID-19, C. difficile colitis as patient remains mechanically ventilated Critical Care Time: The high probability of a clinically significant, sudden or life threatening deterioration of the patient's [cardiac, pulmonary, GI, ID] system(s) required my full and direct attention, intervention and personal management. The critical care time is as shown. This time is in addition to time spent performing any reported procedures but includes the following: [x] Data and vital sign review and interpretation [x] Patient assessment, examination and intervention [x] Documentation [x] Medication orders and management Critical Care Time (min): 90 Coding Level of Care Code Critical Care >/= 30 minutes Critical care time (in minutes): 90 The high probability of a clinically significant, sudden or life threatening deterioration, as referenced in this documentation, required my full and direct attention, intervention and personal management. The critical care time shown is in addition to time spent performing any reported separately billable procedures and includes the following: [x] Data and vital sign review and interpretation [x ] Patient assessment, examination and intervention [x] Medication orders and management [x] Patient/Family updates as able [x] Care Coordination and Documentation. Other Coding Information This patient has a high probability of clinically significant, sudden or life threatening deterioration of the patient's (neurological/pulmonary/cardiac/renal/ID/endocrine) systems required my full, direct attention, the highest level of physician preparedness for urgent intervention and personal management. I managed/supervised life or organ supporting interventions that required frequent physician assessment. I devoted my full attention in the ICU to the direct care of this patient for the period of time indicated above. Time I spent with family or surrogate(s) is included only if the patient was incapable of providing necessary information or participating in decision making. This time includes the following services provided: Telemetry review Mechanical Ventilation Hemodynamic interpretation, assessment and management Review and interpretation of CXR Review and interpretation of lab values Review and interpretation of microbiologic data and culture results Review of medications and administration Review and interpretation of Nutrition requirements and management Discussion of management with other consultants and services Clinical update to family members Diagnoses Respiratory failure J96.90 Septic shock A41.9; R65.21 Acute hypoxic respiratory failure J96.01 COVID-19 U07.1 Elevated troponin R79.89 C. difficile colitis A04.72 Acute metabolic encephalopathy G93.41 Port-A-Cath in place Z95.828 Small cell carcinoma of lung, unspecified laterality, unspecified part of lung C34.90 Laterality: unspecified laterality Lung location: unspecified part of lung Metastasis to brain C79.31 MRSA nasal colonization Z22.322 Diarrhea R19.7
[2023-11-23] MEDS: FUROsemide 10 mg/mL SDV 4mL 40 MG IVP (11:28)
[2023-11-23] MEDS: norepinephrine 4 MG/250 ML BAG 7.5 MG IV (11:43)
[2023-11-23 14:26] LABS: Troponin T (5th) Once 32 ng/L (0-15)
[2023-11-23] MEDS: dexamethasone 4 mg/mL INJ 6 MG IVP (15:32)
--- NOTE | 2023-11-23 16:03 | USCV_ITS ---
Karl Martinez Age: 68 Gender: M : 1955 Exam Date: 11/23/2023 12:52 Ordering Phys: Garth Crowder MD Technologist: Ryley Harris Exam Location[place] [facility] [place]: respiratory failure BP: 98 / 61 HR: 64 Rhythm: Sinus Technical Quality: Adequate MEASUREMENTS (Male / Female) Normal Values 2D ECHO LV Diastolic Diameter PLAX 4.1 cm 4.2 - 5.9 / 3.9 - 5.3 cm IVS Diastolic Thickness 1.4 cm 0.6 - 1.0 / 0.6 - 0.9 cm IVS Systolic Thickness 1.5 cm LVPW Diastolic Thickness 2.5 cm 0.6 - 1.0 / 0.6 - 0.9 cm LVPW Systolic Thickness 2.2 cm LVOT Diameter 2.0 cm LV Ejection Fraction 2D Teich 63.5 % LV Ejection Fraction MOD 4C 73.5 % LV Ejection Fraction MOD 2C 73.9 % LV Ejection Fraction 2C AL 76.5 % LA Diameter 3.7 cm RA Systolic Volume 4C AL 27.9 ml RA Systolic Volume 4C MOD 27.7 ml LA Sys Volume AL 56.3 cm cubed LA Sys Volume Index AL 25.8 cm cubed/m squared Aorta at Sinotubular Diameter 2.2 cm IVC Diameter 2.3 cm M-MODE LA Ao Ratio MM 1.0 AV Cusp Separation MM 1.8 cm DOPPLER AV Peak Velocity 148.0 cm/s LVOT Peak Velocity 105.0 cm/s AV Area Cont Eq vti 2.2 cm squared AV Area Cont Eq pk 2.3 cm squared MV Peak Velocity 87.0 cm/s MV Area PHT 5.7 cm squared Mitral E to A Ratio 0.8 TV Peak Velocity 250.0 cm/s TR Peak Velocity 284.0 cm/s TR Peak Gradient 32.3 mmHg TR Mean Velocity 232.0 cm/s TR Mean Gradient 22.5 mmHg TR Velocity Time Integral 79.3 cm PV Peak Velocity 83.0 cm/s FINDINGS Left Ventricle Normal left ventricular size, systolic function and wall thickness, with no regional wall motion abnormalities. Left ventricular ejection fraction 60%. Grade I/IV diastolic dysfunction (abnormal relaxation filling pattern), normal to mildly elevated filling pressures. Right Ventricle The right ventricle is normal in size and function. Right Atrium The right atrium is normal in size. Left Atrium The left atrium is normal in size. Mitral Valve Structurally normal mitral valve without significant stenosis or prolapse. There is no mitral regurgitation. Aortic Valve Structurally normal aortic valve without significant sclerosis or stenosis. There is no aortic regurgitation. Tricuspid Valve Structurally normal tricuspid valve without significant stenosis or regurgitation. Pulmonary artery systolic pressure is normal. Pulmonic Valve Mild pulmonary valve regurgitation. Pericardium Normal pericardium without effusion. Aorta Normal ascending aorta dimension. IVC The inferior vena cava appears normal. CONCLUSIONS 1-Normal left ventricular size, systolic function and wall thickness, with no regional wall motion abnormalities. Left ventricular ejection fraction 60%. Grade I/IV diastolic dysfunction (abnormal relaxation filling pattern), normal to mildly elevated filling pressures. 2-There is no pericardial effusion. 3-No significant valve abnormalities. 4-Right atrial pressure is around 15 mm of mercury. Caio Rosas MD (Electronically Signed) Final Date: 23 November 2023 17:32 S
[2023-11-23] MEDS: pantoprazole 40 mg SDV IVP (16:31)
--- NOTE | 2023-11-23 17:40 | PC.NURSE ---
wasted 80 mg of versed from room with witness Thao Huston rn
[2023-11-23] MEDS: remdesivir 100 MG in sodium chloride 0.9% (100 ml) 100 ML IV (18:19)
--- NOTE | 2023-11-23 21:30 | PC.NURSE ---
Upon inspection, MAR showed propofol running at 10mcg/kg/min while pump was showing running at 20mcg/kg/min. MAR updated to reflect pump and report from previous shift.
[2023-11-23 23:06] LABS: Vancomycin Trough 12.9 ug/mL (10-15)
[2023-11-24] VITALS (107 sets, daily range): BP systolic 78–192; BP diastolic 51–121; PULSE 62–121; RESP 14–40; TEMP 36.4–36.5; O2SAT 60–100
[2023-11-24] MEDS: albumin 25 G/100 ML BAG 60 G IV ×3 (00:21→17:09)
[2023-11-24] MEDS: piperacillin-tazobactam 3.375 GM in sodium chloride 0.9% (plus) 50 ML IV ×3 (02:04→23:50)
[2023-11-24] MEDS: ipratropium-albuterol 3 mL Neb INHALATION ×4 (03:06→19:34)
[2023-11-24 03:42] LABS: Basophils % 0.6 %; Hematocrit 25.9 % (37-53); Lymphocytes # 0.4 10^3/uL (0.8-4.8); Lymphocytes % 7.8 %; Mean Corpuscular HGB Conc 32.8 g/dL (30-55); Mean Corpuscular Hemoglobin 33.5 pg (27-33); Mean Platelet Volume 11.9 fL (7.4-10.4); Monocytes # 0.1 10^3/uL (0.2-0.9); Monocytes % 2.1 %; Neutrophils # 4.57 10^3/uL (1.8-7.7); Neutrophils % 88.9 %; Nucleated Red Blood Cells % 0 %; Platelet Count 58 10^3/cmm (157-399); Red Blood Count 2.54 10^6/uL (3.85-5.65); White Blood Count 5.14 10^3/uL (3.29-11.43)
[2023-11-24 03:57] LABS: Alanine Aminotransferase 23 U/L (0-41); Albumin Level 3.1 g/dL (3.5-5.2); Alkaline Phosphatase 46 U/L (40-130); Anion Gap 16.8 (5-19); Aspartate Amino Transferase 24 U/L (0-40); Blood Urea Nitrogen 19 mg/dL (8-23); Calcium 8.5 mg/dL (8.5-10.5); Carbon Dioxide 22 mmol/L (22-29); Chloride 105 mmol/L (98-107); Creatinine Clr Calc Pharmacy 96.9594; Globulin 2.1 g/dL (1.3-4.6); Glomerular Filtration Rate 164.9 mL/min (90-130); Glucose 141 mg/dL (65-115); Osmolality Calculated 297 mOsm/kg (285-295); Sodium 141 mmol/L (136-145); Total Bilirubin 0.4 mg/dL (0.15-1.2); Total Protein 5.2 g/dL (6.6-8.7)
[2023-11-24 04:05] LABS: C Reactive Protein 170.6 mg/L (0.0-4.9); Potassium 2.8 mmol/L (3.5-5.1)
--- NOTE | 2023-11-24 04:07 | PC.NURSE ---
Addendum entered by MINOR More 11/24/23 05:11: Order was for 40mEq PO K+, NOT 40mg. Original Note: Conctacted Dr. Valadez in reference to Lovenox adminstration given the patient has Hgb of 8.5 trending downward and Plt count of [address] Valadez gave orders to hold Lovenox for now and repeat CBC at 8am stat. Also contacted Dr. Valadez in reference to critical lab of K+ at 2.8. Received orders for 40mg PO K+.
[2023-11-24] MEDS: potassium chloride oral liq 20 mEq/15 mL UDC 40 MEQ PO (04:43)
[2023-11-24] MEDS: fentaNYL 1,000 MCG/100 ML BAG 7.5 MCG IV (04:43)
[2023-11-24] MEDS: propofol 1,000 MG/100 ML INJ 7.76 MG IV ×2 (04:45→19:36)
[2023-11-24 05:21] LABS: ABG PCO2 37.1 mmHg (35-45); Alveolar-Arterial Oxygen Gradi 11.1 mmHg (5-10); Arterial Blood Gas Hematocrit 30.6 % (42-52); Base Excess ABG -1.8 mmol/L (-2.0-2.0); Blood Gas Allen Test Pos; Blood Gas Operator Identificat JB; Blood Gas Sample Site Radial, right; Blood Gas Sample Type Arterial; HCO3 ABG 22.8 mmol/L (22-26); HGB O2 Sat 95.9 % (95-100); Ionized Calcium Level - ABG 1.2 mmol/L (1.1-1.4); Methemoglobin 0.2 % (0.4-1.5); Oxygen Device VENT; Oxygen Saturation ABG 97.1; PO2 FiO2 Ratio Arterial Blood 276
[2023-11-24] MEDS: aspirin 81 mg EC Tablet PO (05:24)
[2023-11-24] MEDS: budesonide 0.5 mg/2 mL Neb INHALATION ×2 (08:12→19:34)
[2023-11-24 08:23] LABS: Basophils # 0.1 10^3/uL (0.0-0.1); Basophils % 0.9 %; Eosinophils # 0.1 10^3/uL (0.0-0.8); Eosinophils % 1.1 %; Hematocrit 32.3 % (37-53); Lymphocytes # 0.5 10^3/uL (0.8-4.8); Lymphocytes % 7.7 %; Mean Corpuscular HGB Conc 33.1 g/dL (30-55); Mean Corpuscular Hemoglobin 33.3 pg (27-33); Mean Corpuscular Volume 100.6 fl (82-101); Mean Platelet Volume 13.3 fL (7.4-10.4); Monocytes # 0.2 10^3/uL (0.2-0.9); Monocytes % 3.4 %; Neutrophils # 6.01 10^3/uL (1.8-7.7); Neutrophils % 86.2 %; Nucleated Red Blood Cells % 0.3 %; Platelet Count 58 10^3/cmm (157-399); Red Blood Count 3.21 10^6/uL (3.85-5.65); White Blood Count 6.98 10^3/uL (3.29-11.43)
[2023-11-24] MEDS: sertraline 50 mg Tablet 25 MG PO (08:59)
[2023-11-24] MEDS: zinc gluconate 50 mg Tablet PO (08:59)
[2023-11-24] MEDS: gabapentin 100 mg Capsule PO ×2 (08:59→21:12)
[2023-11-24] MEDS: vancomycin 100 mg/1 mL Oral Syringe 250 MG PO ×3 (08:59→21:12)
--- NOTE | 2023-11-24 09:09 | XR_ITS ---
WS: [id number] XR chest 1V portable [id number] REASON FOR EXAM: Covid FINDINGS: Endotracheal tube and nasogastric tube remain in proper position. Chemotherapy infusion port of the left chest with trans left subclavian venous catheter with the tip just beyond the innominate vein and SVC junction. The interstitial and alveolar lung opacities have increased significantly in the mid and lower left l chilo. There is atelectasis and volume loss in the right lung with enlargement of the right hilum which appe ars stable compared to 04/14/2023. No new findings. XR/XR chest 1V portable [id number] IMPRESSION: Increasing lung opacities in the left lung as above.
--- NOTE | 2023-11-24 11:23 | USCV_ITS ---
Karl Martinez Age: 68 Gender: M : 1955 Exam Date: 11/24/2023 13:19 Ordering Phys: Salazar Mcbride MD Technologist: [place] [facility] [place] bed stasis abnormal ddimer PROCEDURES: The venous duplex Doppler examination of both lower extremities was performed in the standard fashion. The following venous structures were evaluated: common femoral vein, profunda vein, proximal portion of the greater saphenous vein, superficial femoral vein, and the popliteal vein. FINDINGS: Limited quality exam. Evidence of acute partial deep vein thrombosis in the right superficial femoral and popliteal vein with abnormal flow dynamics. Evidence of acute occlusive deep vein thrombosis in the right peroneal vein with abnormal flow dynamics. Right superficial thromobophlebitis may also be present. No dvt left lower extremity. CONCLUSIONS Right DVT: SFV, POPLITEAL AND PERONEAL TRUNK. NO DVT LEFT LOWER EXTREMITY. Dr. Ana Schneider DO (Electronically Signed) Final Date: 24 November 2023 15:14 S
--- NOTE | 2023-11-24 11:38 | PC.NURSE ---
Patient extubated at [address] Bartlett orders by RT.
--- NOTE | 2023-11-24 12:20 | PC.SOCIAL ---
IMM Updated Updated pt on IMM. No questions voiced. Provided pt a copy. Initialed, dated, & timed a copy & placed in chart.
[2023-11-24 12:26] LABS: Glucose Point of Care 162 mg/dL (70-110)
[2023-11-24] MEDS: dexamethasone 4 mg/mL INJ 6 MG IVP (15:05)
--- NOTE | 2023-11-24 16:45 | P.PN_ITS ---
Subjective 2 Subjective: This morning he is awake and alert, following directions, without pain, no trouble breathing, bothered by ET tube, wanting to be extubated. Vitals/I&O/Wt Last Vital Signs Temp 97.6 F 11/24/23 04:00 Pulse 77 11/24/23 16:15 Resp 24 H 11/24/23 16:15 BP 123/73 11/24/23 16:15 Pulse Ox 91 11/24/23 16:15 O2 Del Method Nasal Cannula 11/24/23 14:10 O2 Flow Rate 4 11/24/23 14:10 FiO2 30 11/24/23 10:56 11/24/23 11/24/23 11/24/23 06:59 14:59 22:59 Intake Total 774.005 / 6473.846 9829.202 / 1332.202 Output Total 950 / 2900 Balance -175.995 / -1818.629 8955.202 / 1332.202 Weight last 48 hrs Weight 95 kg Weight 91.825 kg Weight 97.5 kg Weight 97.5 kg Physical Exam 2 Narrative: Accompanied by his family. Const: COMMON NORMALS: alert GENERAL APPEARANCE: cooperative and patient mechanically ventilated ORIENTATION/CONSCIOUSNESS: Yes awake OTHER: During second visit on nasal cannula oxygen. HENMT: COMMON NORMALS: oropharynx normal Neck/C-Spine: COMMON NORMALS: no JVD Resp: COMMON NORMALS: normal respiratory effort and clear to auscultation bilaterally AUSCULTATION: clear to auscultation bilaterally Cardio: COMMON NORMALS: no JVD, regular rhythm, S1 normal heart sound present, S2 normal heart sound present and No murmurs present (Cardio) RHYTHM: regular rhythm HEART SOUNDS: S1 normal heart sound present and S2 normal heart sound present GI: COMMON NORMALS: Normal to inspection, nondistended, normoactive bowel sounds present, Soft to palpation and non-tender PALPATION: Yes Soft to palpation Extremity: COMMON NORMALS: no joint enlargement and no pedal edema OTHER: Edema of hands, L>R Neuro: COMMON NORMALS: moves all extremities SENSORIUM/ORIENTATION: Yes alert Skin: COMMON NORMALS: no rashes or lesions noted GENERAL SKIN EXAM: no rashes or lesions noted Urinary Catheter Management: Strange: Cath Placed During This Visit: yes Reason for Continuing Indwelling Catheter: Accurate Measurement of Urinary Output in Critically Ill Patients Urinary Catheter Date of Insertion: 11/21/23 Urinary Catheter Time of Insertion: 11:40 Data 11/24/23 08:03 11/24/23 03:25 Micro: Microbiology 11/21/23 11:25 Gram Stain - Final Sputum - Endotracheal Tube Aspirate Sputum Culture - Final Acinetobacter baumannii/haemol Haemophilus Influenzae A&P Assessment and plan (1) Respiratory failure: This morning reviewed vitals, CBC, CMP, requested repeat D-dimer, requested lower extremity venous duplex. Reviewed vent settings. Discussed with nursing, respiratory therapist. He is doing well. On minimal settings. Did well with breathing trial. Extubated to 4 L nasal cannula oxygen. Continue oxygen support. Wean down as tolerating. Continue treatment for COVID-19, complete remdesivir, Decadron. Monitor for risk of hyperglycemia, hypertension with IV steroids, encephalopathy, gastritis. Continue Zosyn Vanc mycin for superimposed bacterial pneumonia. Respiratory sample from ET tube Hold albumin. Intubated because of concerns for respiratory failure in setting of metabolic encephalopathy leading to unresponsiveness. Oxygen supplementation keeping saturation over 90%. Concerns for pneumonitis on CT chest done in the ER. Keep ventilated for now. Patient has an extensive secretions. Sedation vacation daily. Sedation with propofol and fentanyl. (2) DVT (deep venous thrombosis): Discussed risk of progression of thrombosis, risk of DVT with underlying malignancy. Discussed risk of treatment, consideration of IVC filter versus anticoagulation discussed with him and his as well as with his oncologist. Discussed risk of anticoagulation in setting of thrombocytopenia, setting of risk of [employer] bleeding, history of metastatic malignancy. Reviewed MRI from for now consensus is while his platelets are above 50,000 resuming anticoagulation as per discussion with hematology resuming anticoagulation with Eliquis 5 mg without the 10 mg dosing. Monitor for risk of bleeding. (3) Septic shock: Weaned off pressor. Keep mean artery pressure 65. Continue with normal saline at 75 cc/h. Wean Levophed drip keeping mean artery pressure as per goal. (4) Acute hypoxic respiratory failure: As above. Most likely in combination of altered mental status along with pneumonitis as seen on CT. COVID-19 positive. Urine Legionella bacterial antigen negative. Sputum culture, blood culture pending. Check MRSA swab. Empirically start patient on IV vancomycin and Zosyn and azithromycin for atypical coverage. De-escalate antibiotics as per culture sensitivities. Discontinue vancomycin if MRSA swab negative. (5) COVID-19: Continue remdesivir, Decadron, complicated by DVT. Continue decannulation as above, at risk of bleeding with thrombocytopenia, [employer] metastatic disease. Monitor for any bleeding. Reassess platelets. Hypoxia secondary to COVID-19 pneumonia: Severe disease. Oxygen supplementation keeping saturation over 88%. Dexamethasone 6 mg daily. Remdesivir to finish a 5-day course. Zinc daily DuoNeb every 6 hour, budesonide twice daily Pulmonary toilet with incentive spirometry flutter valve once patient is extubated. We will monitor inflammatory markers including CRP, D-dimer every 48 hours. D-dimer extremely elevated. Patient already had CT chest with contrast which is negative for PE. Not a CTA study done. Did have elevated troponin on admission so for now we will start on full dose Lovenox 1 mg/kg body weight every 12 hourly. Depending on the clinical picture and renal function within next 24 to 48 hours can plan for CTA. Continue monitors D-dimer every 48 hours for now. Last echocardiogram from March showed an EF of 60 to 65% without regional wall motion bradycardia, mild TR. Strict input output charting, daily weights. (6) Elevated troponin: Cannot rule out non-ST elevation ID. Concerns for type II ID. Echocardiogram to monitor EF and rule out regional wall motion abnormality. Appreciate A1c, lipid panel. Continue with home dose of aspirin 81 mg daily. (7) C. difficile colitis: Continue oral vancomycin. Colitis seen on CT abdomen/pelvis. Extensive diarrhea. Start on 250 every 6 hr of oral vancomycin. Will plan to continue oral vancomycin for at least 2 weeks after completion of IV antibiotic course. (8) Acute metabolic encephalopathy: Most likely in setting of severe infection/COVID-19 along with high doses of gabapentin and oxycodone. Continue to monitor. Currently sedated. Will plan for daily sedation medication. (9) Port-A-Cath in place: (10) Small cell lung cancer: Qualifiers: Laterality: unspecified laterality Lung location: unspecified part of lung Qualified Code(s): C34.90 - Malignant neoplasm of unspecified part of unspecified bronchus or lung (11) Metastasis to brain: (12) MRSA nasal colonization: (13) Diarrhea: Plan Chronic medication including Xanax as needed, sertraline. Restart gabapentin at a lower dose to avoid withdrawals at 100 mg 3 times daily. CODE STATUS: will be the DPOA. Full code. Attestations 2 Medical Necessity Statement*: Continue admission for assessment management of respiratory failure, COVID-19, superimposed bacterial pneumonia, C. difficile colitis, DVT in setting of thrombocytopenia, metastatic cancer. Coding Level of Care Code Critical Care >/= 30 minutes Critical care time (in minutes): 40 The high probability of a clinically significant, sudden or life threatening deterioration, as referenced in this documentation, required my full and direct attention, intervention and personal management. The critical care time shown is in addition to time spent performing any reported separately billable procedures and includes the following: [x] Data and vital sign review and interpretation [x ] Patient assessment, examination and intervention [x] Medication orders and management [x] Patient/Family updates as able [x] Care Coordination and Documentation. Diagnoses Respiratory failure J96.90 DVT (deep venous thrombosis) I82.409 Septic shock A41.9; R65.21 Acute hypoxic respiratory failure J96.01 COVID-19 U07.1 Elevated troponin R79.89 C. difficile colitis A04.72 Acute metabolic encephalopathy G93.41 Port-A-Cath in place Z95.828 Small cell carcinoma of lung, unspecified laterality, unspecified part of lung C34.90 Laterality: unspecified laterality Lung location: unspecified part of lung Metastasis to brain C79.31 MRSA nasal colonization Z22.322 Diarrhea R19.7
[2023-11-24 16:55] LABS: D Dimer 3.11 ug/mLFEU (0-0.59)
[2023-11-24] MEDS: apixaban 5 mg Tablet PO (17:04)
[2023-11-24] MEDS: pantoprazole 40 mg SDV IVP ×2 (17:08→21:03)
[2023-11-24 17:10] LABS: NT Pro B Type Natriuretic Pept 2648 pg/mL (0-125)
--- NOTE | 2023-11-24 18:46 | PC.NURSE ---
Addendum entered by Laura Ramos RN 11/24/23 18:56: Witnessed waste of Fentanyl and Propofol. Original Note: Waste of Fentanyl 80.791 mL and 69.786 mL Propofol. Witnessed by Laura ROSEN
[2023-11-24] MEDS: etomidate 2 mg/mL INJ SDV 10 mL 20 MG IVP (19:10)
[2023-11-24] MEDS: succinylcholine 20 mg/mL SDV 10mL 100 MG IVP (19:10)
--- NOTE | 2023-11-24 19:14 | XRR_ITS ---
PROCEDURE INFORMATION: Exam: XR Chest Exam date and time: 11/24/2023 7:28 PM Age: 68 years old Clinical indication: Device placement; Ett placement (vent status); Patient HX: Ett and ng tube placement; Additional info: Intubation TECHNIQUE: Imaging protocol: Radiologic exam of the chest. Views: 1 view. COMPARISON: CR XR chest 1V portable [id number] 11/24/2023 8:56 AM FINDINGS: Tubes, catheters and devices: Endotracheal tube tip terminates proximally 2.5 cm above the yrn. Left-sided chest port tip terminates near the mid SVC. Lungs: Central vascular prominence with diffuse bilateral hazy opacities concerning for pulmonary edema. Pleural spaces: No pleural effusion. No pneumothorax. Heart/Mediastinum: Cardiomegaly. Bones/joints: Unremarkable. XR/XR chest 1V portable [id number] IMPRESSION: Endotracheal tube tip terminates proximally 2.5 cm above the yrn. Central vascular prominence with diffuse bilateral hazy opacities concerning for pulmonary edema.
--- NOTE | 2023-11-24 19:15 | PC.NURSE ---
Emergency Intubation: At approximately 1900, SpO2 rapidly dropped to the 60's. Pt was extremely distressed/anxious, sitting up in bed, alert but unable to follow commands, thrashing arms, repeatedly stating he can't breath, RR 45, modeling noted. Non-rebreather mask placed on pt @15L, SpO2 mid 40's. Switched to Ambu bag shortly after, SpO low 80's. Dr. Mcbride called and on unit shortly after. Verbal orders to prepare to intubate. Intubated @[address] Mcbride. Verbal order for restraints, OG, sedation, EKG, and chest X-ray. See MAR for medications given. Medications titrated up faster than protocol- Dr. Mcbride aware. Dark red liquid stool noted in rectal tube- Dr. Mcbride made aware. called and on unit shortly after.
[2023-11-24] MEDS: fentaNYL 1,000 MCG/100 ML BAG 5 MCG IV (19:18)
[2023-11-24] MEDS: dexmedeTOMIDine 0.9 % NaCL 400 MCG/100 ML PREMIX IV (19:20)
--- NOTE | 2023-11-24 19:31 | ECG_ITS ---
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 Measurements Intervals [place] Rate: 116 P: -43 UT: 192 QRS: -50 QRSD: 115 T: 85 QT: 314 QTc: 436 Interpretive Statements SINUS TACHYCARDIA PATTERN CONSISTENT WITH PULMONARY DISEASE LEFT ANTERIOR FASCICULAR BLOCK [QRS AXIS <= -45, QR IN I, RS IN II] NONSPECIFIC ST & T-WAVE ABNORMALITY Compared to ECG 11/21/2023 17:42:28 T-wave abnormality now present Sinus rhythm no longer present First degree AV block no longer present Incomplete right bundle-branch block no longer present Myocardial infarct finding no longer present Electronically Signed On 11-25-2023 7:48:24 CDT by Mervin Noe M.D. [id number]
--- NOTE | 2023-11-24 19:32 | P.PCN_ITS ---
Procedure/Consent Procedure Narrative: Emergent intubation due to acute hypox resp fail. Unable to maintain saturaiton with NRB. W manual ventilation sats 70, max 84-85%. Acute Procedures Intubation: Sedative: etomidate (10mg) Paralytic: succinylcholine (100 mg) Laryngoscope: [place] ET tube size: 8 Tube secured depth (cm): 23 Tube secured location: lips Tube placement confirmation: visualized tube passing through cords, equal breath sounds bilaterally, no breath sounds over epigastrium, confirmation by capnometry and color change noted Patient tolerated procedure: no complications Intubation complications: none Additional comments: XR obtained. Discussed with patient's daughter regarding change in condition and emergent re- intubation.
[2023-11-24 20:00] LABS: Hematocrit 27.4 % (37-53); Mean Corpuscular HGB Conc 32.5 g/dL (30-55); Mean Corpuscular Hemoglobin 33.3 pg (27-33); Mean Corpuscular Volume 102.6 fl (82-101); Mean Platelet Volume 12.1 fL (7.4-10.4); Platelet Count 66 10^3/cmm (157-399); Red Blood Count 2.67 10^6/uL (3.85-5.65); Red Cell Distribution Width 16.4 % (12.1-15.1); White Blood Count 6.15 10^3/uL (3.29-11.43)
[2023-11-24 20:18] LABS: Troponin T (5th) Once 31 ng/L (0-15)
[2023-11-24 20:32] LABS: Alanine Aminotransferase 30 U/L (0-41); Albumin Level 3.9 g/dL (3.5-5.2); Alkaline Phosphatase 64 U/L (40-130); Anion Gap 17.4 (5-19); Aspartate Amino Transferase 33 U/L (0-40); Blood Urea Nitrogen 19 mg/dL (8-23); Calcium 8.5 mg/dL (8.5-10.5); Carbon Dioxide 23 mmol/L (22-29); Chloride 106 mmol/L (98-107); Creatinine Clr Calc Pharmacy 95.7267; Globulin 1.5 g/dL (1.3-4.6); Glomerular Filtration Rate 164.9 mL/min (90-130); Glucose 135 mg/dL (65-115); NT Pro B Type Natriuretic Pept 3248 pg/mL (0-125); Osmolality Calculated 300 mOsm/kg (285-295); Potassium 3.4 mmol/L (3.5-5.1); Sodium 143 mmol/L (136-145); Total Bilirubin 0.8 mg/dL (0.15-1.2); Total Protein 5.4 g/dL (6.6-8.7)
[2023-11-24 20:43] LABS: Slide Review Slide Review Perform
[2023-11-24 20:44] LABS: Band Neutrophils Absolute 0.9 10^3/cmm (0.0-1.2); Eosinophils 0 %; Lymphocytes 4 %; Segmented Neutrophils 81 %; Total Cells Counted 100 (0-100)
[2023-11-24 20:45] LABS: Absolute Neutrophil 5.8 10^3/cmm (1.4-6.5); Anisocytosis Trace; Platelet Estimate Decreased (Normal)
[2023-11-24] MEDS: vancomycin 1,500 MG/300 ML PIGGYBACK 200 MG IV (20:58)
[2023-11-24 21:01] LABS: ABG PCO2 39.7 mmHg (35-45); ABG PH Result 7.37 (7.35-7.45); Alveolar-Arterial Oxygen Gradi 55.3 mmHg (5-10); Arterial Blood Gas Hematocrit 31.9 % (42-52); Blood Gas Allen Test Pos; Blood Gas Operator Identificat JB; Blood Gas Sample Site Radial, right; Blood Gas Sample Type Arterial; Carboxyhemoglobin 0.8 %THgb (0.4-20.1); HCO3 ABG 23.1 mmol/L (22-26); HGB O2 Sat 98.4 % (95-100); Ionized Calcium Level - ABG 1.3 mmol/L (1.1-1.4); Methemoglobin 0.9 % (0.4-1.5); Oxygen Device VENT; Oxygen Saturation ABG > 100.0; PO2 FiO2 Ratio Arterial Blood 235; Potassium Level - ABG 3.1 mmol/L (3.5-5.0); Total Hemoglobin 10.4 g/dL (14-18)
[2023-11-24] MEDS: remdesivir 100 MG in sodium chloride 0.9% (100 ml) 100 ML IV (22:40)
[2023-11-25] VITALS (77 sets, daily range): BP systolic 94–136; BP diastolic 58–84; PULSE 59–78; RESP 14; TEMP 36.1–36.7; O2SAT 90–100
[2023-11-25] MEDS: ipratropium-albuterol 3 mL Neb INHALATION ×4 (03:05→20:02)
[2023-11-25] MEDS: propofol 1,000 MG/100 ML INJ 7.76 MG IV (03:19)
[2023-11-25 04:05] LABS: Basophils % 0.2 %; Hematocrit 26.2 % (37-53); Lymphocytes # 0.5 10^3/uL (0.8-4.8); Lymphocytes % 9.6 %; Mean Corpuscular HGB Conc 32.1 g/dL (30-55); Mean Corpuscular Hemoglobin 32.7 pg (27-33); Mean Corpuscular Volume 101.9 fl (82-101); Mean Platelet Volume 11.6 fL (7.4-10.4); Monocytes # 0.1 10^3/uL (0.2-0.9); Monocytes % 2.4 %; Neutrophils # 4.33 10^3/uL (1.8-7.7); Nucleated Red Blood Cells % 0 %; Platelet Count 62 10^3/cmm (157-399); Red Blood Count 2.57 10^6/uL (3.85-5.65); Red Cell Distribution Width 16.4 % (12.1-15.1); White Blood Count 4.98 10^3/uL (3.29-11.43)
[2023-11-25 04:25] LABS: Alanine Aminotransferase 27 U/L (0-41); Albumin Level 3.5 g/dL (3.5-5.2); Alkaline Phosphatase 65 U/L (40-130); Anion Gap 14.1 (5-19); Aspartate Amino Transferase 28 U/L (0-40); Blood Urea Nitrogen 19 mg/dL (8-23); Calcium 8.7 mg/dL (8.5-10.5); Carbon Dioxide 23 mmol/L (22-29); Chloride 105 mmol/L (98-107); Creatinine Clr Calc Pharmacy 95.7267; Glomerular Filtration Rate 164.9 mL/min (90-130); Glucose 146 mg/dL (65-115); Osmolality Calculated 293 mOsm/kg (285-295); Potassium 3.1 mmol/L (3.5-5.1); Sodium 139 mmol/L (136-145); Total Bilirubin 0.5 mg/dL (0.15-1.2); Total Protein 5.5 g/dL (6.6-8.7)
[2023-11-25 04:54] LABS: Slide Review Slide Review Perform
[2023-11-25 05:07] LABS: ABG PCO2 37.7 mmHg (35-45); Alveolar-Arterial Oxygen Gradi 18.7 mmHg (5-10); Arterial Blood Gas Hematocrit 32.7 % (42-52); Base Excess ABG -1.1 mmol/L (-2.0-2.0); Blood Gas Allen Test Pos; Blood Gas Operator Identificat JB; Blood Gas Sample Site Radial, right; Blood Gas Sample Type Arterial; Carboxyhemoglobin 0.8 %THgb (0.4-20.1); HCO3 ABG 23.5 mmol/L (22-26); HGB O2 Sat 96.5 % (95-100); Ionized Calcium Level - ABG 1.3 mmol/L (1.1-1.4); Methemoglobin 0.9 % (0.4-1.5); Oxygen Device VENT; Oxygen Saturation ABG 98.2; PO2 ABG 94.5 mmHg (80.0-100.0); PO2 FiO2 Ratio Arterial Blood 236; Total Hemoglobin 10.7 g/dL (14-18)
--- NOTE | 2023-11-25 05:23 | PC.NURSE ---
Physician Notification: Called Dr. Valadez @9447 to report Potassium 3.1, new order for 40 Klor-Con OG ONCE NOW. Notified of low plt count and 0600 Asprin, order to continue w/ asprin. Notified of poor peripheral access and incompatible medication, new order for PICC insertion.
[2023-11-25] MEDS: potassium chloride oral liq 20 mEq/15 mL UDC 40 MEQ OG-TUBE (05:50)
[2023-11-25] MEDS: aspirin 81 mg EC Tablet PO (05:51)
[2023-11-25] MEDS: piperacillin-tazobactam 3.375 GM in sodium chloride 0.9% (plus) 50 ML IV ×3 (06:00→22:15)
[2023-11-25] MEDS: budesonide 0.5 mg/2 mL Neb INHALATION ×2 (08:02→20:02)
[2023-11-25] MEDS: fentaNYL 1,000 MCG/100 ML BAG 7.5 MCG IV ×2 (08:21→18:45)
[2023-11-25] MEDS: vancomycin 100 mg/1 mL Oral Syringe 250 MG PO ×4 (08:22→22:16)
[2023-11-25] MEDS: pantoprazole 40 mg SDV IVP ×2 (08:22→18:44)
[2023-11-25] MEDS: gabapentin 100 mg Capsule PO ×3 (08:22→22:16)
[2023-11-25] MEDS: zinc gluconate 50 mg Tablet PO (08:22)
[2023-11-25] MEDS: sertraline 50 mg Tablet 25 MG PO (08:22)
--- NOTE | 2023-11-25 09:05 | XR_ITS ---
WS: [id number] XR chest 1V portable [id number] REASON FOR EXAM: Post PICC insertion FINDINGS: Right arm PICC line placement. Tip of the PICC line catheter is in the distal SVC in proper position for use. Endotracheal tube and nasogastric tube remain in position. Chemotherapy infusion port with left subclavian catheter unchanged compared to examination in 1 hour ago. Diffuse bilateral interstitial reticular and alveolar lung opacities unchanged from examination 1 rayo r ago. Besides PICC line, no new findings. XR/XR chest 1V portable [id number] IMPRESSION: PICC line placement in proper position as above. Results of the radiograph discussed with the medical technologist clinical performing the examination. Technologist transferred information to PICC line nurse.
--- NOTE | 2023-11-25 09:09 | XRR_ITS ---
PROCEDURE INFORMATION: Exam: XR Chest Exam date and time: 11/25/2023 9:01 AM Age: 68 years old Clinical indication: Shortness of breath; Prior surgery; Surgery date: 6+ months; Surgery type: Cardiac stent port; Additional info: Covid TECHNIQUE: Imaging protocol: Radiologic exam of the chest. Views: 1 view. COMPARISON: CR (CHEST, ) 11/24/2023 7:28 PM FINDINGS: Tubes, catheters and devices: Endotracheal tube is present with its tip 2-3 cm above the yrn. Medication port is seen on the left with its tip overlying the proximal SVC. Nasogastric tube present with its tip below the level of the film. Lungs: There are bilateral infiltrates slightly worse on the left. Findings are improved when compared to prior exam. Pleural spaces: There may be trace pleural effusions. No pneumothorax is identified. Heart/Mediastinum: The heart is enlarged. There is calcified plaque involving the aorta. Diaphragm: There is chronic elevation of the right hemidiaphragm. Bones/joints: There are postoperative changes involving the left shoulder. XR/XR chest 1V portable [id number] IMPRESSION: 1. Cardiomegaly with bilateral infiltrates and possible trace pleural effusions improved when compared to prior exam.
--- NOTE | 2023-11-25 09:25 | CTR_ITS ---
PROCEDURE INFORMATION: Exam: CT Head Without Contrast Exam date and time: 11/25/2023 6:10 PM Age: 68 years old Clinical indication: Altered mental status/memory loss; Confusion or disorientation; Additional info: Acute resp failure, delirium TECHNIQUE: Imaging protocol: Computed tomography of the head without contrast. Radiation optimization: All CT scans at this facility use at least one of these dose optimization techniques: automated exposure control; mA and/or kV adjustment per patient size (includes targeted exams where dose is matched to clinical indication); or iterative reconstruction. COMPARISON: CT head wo con* [id number] 11/21/2023 12:09 PM RADIATION DOSE METRICS: Total DLP (mGy-cm): 1164 FINDINGS: Brain: No evidence of intracranial hemorrhage. Mild chronic microvascular cerebral parenchymal change. No evidence of cytotoxic edema or loss of simpson-white differentiation. Stable appearance of the brainstem. No mass effect. Cerebral ventricles: No ventriculomegaly. Paranasal sinuses: Mild mucosal thickening and retained secretions in the bilateral sphenoid sinuses have increased from 11/21/2023. However right maxillary air-fluid level has nearly resolved. Mastoid air cells: Visualized mastoid air cells are well aerated. Bones: Unremarkable. No acute fracture. Soft tissues: 1.3 cm sebaceous cyst in the posterior left suboccipital soft tissues. CT/CT head wo con* [id number] IMPRESSION: 1. No acute intracranial abnormality or interval change compared to 11/21/2023. Further evaluation with MR may be considered if there is persistent suspicion for occult early ischemia or other significant intracranial changes. 2. Right maxillary sinusitis has improved although . Mildly increased sphenoid sinus mucosal thickening .
--- NOTE | 2023-11-25 09:45 | PICC.NOTE ---
Triple lumen PICC placed to right brachial vein. Referred to vascular access nurse for PICC placement due to need for vasopressors and multiple drips. Risks and benefits discussed and informed consent obtained from patient . Right arm assessed with right brachial vein measuring 3.3 mm, straight, and apparent best choice for placement. Using sterile technique and MST, right brachial vein accessed x 1 stick. Mid-arm circumference measured 10 cm from right AC 30.5 cm. Trimmed cath 40 cm with 0 cm external length noted. CXR shows tip in distal SVC, in good position for use per radiologist. Line secured with stat-lock. Insertion site covered with Biopatch and TSM. Report given to bedside nurse, SILAS Bryson.
--- NOTE | 2023-11-25 11:39 | CTR_ITS ---
PROCEDURE INFORMATION: Exam: CT Chest Without Contrast; Diagnostic Exam date and time: 11/25/2023 6:13 PM Age: 68 years old Clinical indication: Ards; Cardiac stents port TECHNIQUE: Imaging protocol: Diagnostic computed tomography of the chest without contrast. Radiation optimization: All CT scans at this facility use at least one of these dose optimization techniques: automated exposure control; mA and/or kV adjustment per patient size (includes targeted exams where dose is matched to clinical indication); or iterative reconstruction. COMPARISON: CT chest abdpel w/*[id number] 11/21/2023 12:13 PM RADIATION DOSE METRICS: Total DLP (mGy-cm): 650 FINDINGS: Tubes, catheters and devices: Distal G-tube is positioned in the stomach body. ET tube is positioned 2.5 cm superior to the yrn. A central venous catheter tip terminates in the superior vena cava. Lungs: Multifocal patchy bilateral pulmonary infiltrates appear similar to the prior study. Moderate right pleural effusion enlarged when compared to the prior study. Small left pleural effusion. Pleural spaces: See Lungs finding. Heart: Unremarkable. No cardiomegaly. No pericardial effusion. Coronary arteries: Multivessel atherosclerotic disease which involves the coronary arteries. Lymph nodes: Unremarkable. No enlarged lymph nodes. Vasculature: Unremarkable. No aortic aneurysm. Bones/joints: Unremarkable. No acute fracture. Soft tissues: There is edema in the soft tissues. CT/CT chest wo [facility] [id number] IMPRESSION: 1. Multifocal patchy bilateral pulmonary infiltrates appear similar to the prior study. 2. Moderate right pleural effusion enlarged when compared to the prior study. Small left pleural effusion. 3. Multivessel atherosclerotic disease which involves the coronary arteries.
[2023-11-25] MEDS: propofol 1,000 MG/100 ML INJ 12.93 MG IV ×2 (11:56→18:45)
--- NOTE | 2023-11-25 13:18 | PM.PN ---
Subjective Subjective: Intubated, appears calm with sedation. Mechanically ventilated. Overbreathing the vent. Vitals/I&O/Wt Last Vital Signs Temp 97.4 F L 11/25/23 08:15 Pulse 64 11/25/23 12:00 Resp 14 11/25/23 11:24 BP 108/70 11/25/23 12:00 Pulse Ox 98 11/25/23 12:00 O2 Del Method Mechanical Ventilation 11/25/23 08:00 O2 Flow Rate 15 11/24/23 19:10 FiO2 35 11/25/23 12:00 11/24/23 11/25/23 11/25/23 22:59 06:59 14:59 Intake Total 449.202 / 1781.404 386.629 / 2168.033 127.906 / 127.906 Output Total 1100 / 1100 550 / 1650 Balance -650.798 / 681.404 -163.371 / 518.033 127.906 / 127.906 Weight last 48 hrs Weight 88.813 kg Weight 95 kg Weight 91.825 kg Physical Exam Narrative: Accompanied by his and son at bedside. Const: COMMON NORMALS: alert GENERAL APPEARANCE: cooperative and patient mechanically ventilated ORIENTATION/CONSCIOUSNESS: Yes awake OTHER: During second visit on nasal cannula oxygen. HENMT: COMMON NORMALS: oropharynx normal Neck/C-Spine: COMMON NORMALS: no JVD Resp: AUSCULTATION: wheezes right lower OTHER: Coarse lung sounds. Cardio: COMMON NORMALS: no JVD, regular rhythm, S1 normal heart sound present, S2 normal heart sound present and No murmurs present (Cardio) RHYTHM: regular rhythm HEART SOUNDS: S1 normal heart sound present and S2 normal heart sound present GI: COMMON NORMALS: Normal to inspection, nondistended, normoactive bowel sounds present, Soft to palpation and non-tender PALPATION: Yes Soft to palpation Extremity: COMMON NORMALS: no joint enlargement and no pedal edema OTHER: Edema of hands, L>R Neuro: COMMON NORMALS: moves all extremities SENSORIUM/ORIENTATION: Yes alert Skin: COMMON NORMALS: no rashes or lesions noted GENERAL SKIN EXAM: no rashes or lesions noted Urinary Catheter Management: Strange: Cath Placed During This Visit: yes Reason for Continuing Indwelling Catheter: Accurate Measurement of Urinary Output in Critically Ill Patients Urinary Catheter Date of Insertion: 11/21/23 Urinary Catheter Time of Insertion: 11:40 Data 11/25/23 03:51 11/25/23 03:51 Micro: Microbiology 11/21/23 11:25 Gram Stain - Final Sputum - Endotracheal Tube Aspirate Sputum Culture - Final Acinetobacter baumannii/haemol Haemophilus Influenzae A&P Assessment and plan (1) Respiratory failure: Reviewed vitals, intake and output, CBC, hemoglobin, platelets, D-dimer, ABG, CMP, chest x-ray, overnight documentation. He did require Levophed overnight, but has weaned off. FiO2 with gradual improvement, ventilator settings reviewed, on 40% FiO2 currently. Overbreathing the vent. Does have some coarse breath sounds, wheezing. Worsening ARDS noted last night compared to yesterday morning. Cardiomegaly, congestive changes, trace pleural effusions with improvement on repeat x-ray this morning. He is responding well to some pressure provided by the ventilator as per discussion with family. With history of JOSEP may benefit from extubation to CPAP and/or CPAP when he is napping or sleeping, however, cooperation may be challenging as discussed with family. Additionally concern for possibility of aspiration with both the above conditions contributing to significant lung inflammation secondary to COVID-19, superimposed bacterial pneumonia. At the possibility of PE with known right lower extremity DVT, intolerant of continuous anticoagulation. Additionally assess CT chest to further assess extent of pneumonia, effusions. Discussed with case management, consideration of further weaning at LTAC facility. This morning reviewed vitals, CBC, CMP, requested repeat D-dimer, requested lower extremity venous duplex. Reviewed vent settings. Discussed with nursing, respiratory therapist. He is doing well. On minimal settings. Did well with breathing trial. Extubated to 4 L nasal cannula oxygen. Continue oxygen support. Wean down as tolerating. Continue treatment for COVID-19, complete remdesivir, Decadron. Monitor for risk of hyperglycemia, hypertension with IV steroids, encephalopathy, gastritis. Continue Zosyn Vanc mycin for superimposed bacterial pneumonia. Respiratory sample from ET tube Hold albumin. Intubated because of concerns for respiratory failure in setting of metabolic encephalopathy leading to unresponsiveness. Oxygen supplementation keeping saturation over 90%. Concerns for pneumonitis on CT chest done in the ER. Keep ventilated for now. Patient has an extensive secretions. Sedation vacation daily. (2) DVT (deep venous thrombosis): Discussed possibility of PE, although he has been maintaining blood pressures, weaned off pressor, without tachycardia, improving oxygenation. Hemoglobin did decrease down to 8.4 this morning. Discussed with patient and family regarding IVC filter. Discussed potential risks of procedure, including filter dislodgment, perforation, or migration, infection or thrombosis. Discussed with academic support center director, IVC filter unable to be placed until tomorrow. Discussed possible GI bleed with cardiology, with hemodynamic condition so far, without massive continued bleeding, recommendation for anticoagulation by cardiology, discussed with family, discussed risk of bleeding, risk of severe or life-threatening anemia in case of severe GI bleeding. Discussed options for anticoagulation, discussed consideration of heparin drip to be able to discontinue anticoagulation in case of worsening condition. Family in agreement. Discussed with nursing staff, start without bolus. Monitor PTTs. Monitor for any additional bleeding. Continue IV twice daily PPI prophylaxis. On review of platelets they have been rather steady around 60,000 without further decrease, although so far have not significantly improved. As per discussion hopefully IVC filter may be temporary in case he may be able to tolerate anticoagulation in the future. As mental status has been difficult to assess soft ETT you significant restlessness, intolerance, additionally assess CT of the head. Discussed risk of progression of thrombosis, risk of DVT with underlying malignancy. Discussed risk of treatment, consideration of IVC filter versus anticoagulation discussed with him and his as well as with his oncologist. Discussed risk of anticoagulation in setting of thrombocytopenia, setting of risk of SURGICAL RESIDENT bleeding, history of metastatic malignancy. Reviewed MRI from for now consensus is while his platelets are above 50,000 resuming anticoagulation as per discussion with hematology resuming anticoagulation with Eliquis 5 mg without the 10 mg dosing. Monitor for risk of bleeding. (3) Septic shock: Weaned off pressor. Keep mean artery pressure 65. Continue with normal saline at 75 cc/h. Wean Levophed drip keeping mean artery pressure as per goal. (4) Acute hypoxic respiratory failure: As above. Most likely in combination of altered mental status along with pneumonitis as seen on CT. COVID-19 positive. Urine Legionella bacterial antigen negative. Sputum culture, blood culture pending. Check MRSA swab. Empirically start patient on IV vancomycin and Zosyn and azithromycin for atypical coverage. De-escalate antibiotics as per culture sensitivities. Discontinue vancomycin if MRSA swab negative. (5) COVID-19: Complete remdesivir, continue Decadron, complicated by DVT. Continue decannulation as above, at risk of bleeding with thrombocytopenia, SURGICAL RESIDENT metastatic disease. Monitor for any bleeding. Reassess platelets. Hypoxia secondary to COVID-19 pneumonia: Severe disease. Oxygen supplementation keeping saturation over 88%. Dexamethasone 6 mg daily. Remdesivir to finish a 5-day course. Zinc daily DuoNeb every 6 hour, budesonide twice daily Pulmonary toilet with incentive spirometry flutter valve once patient is extubated. We will monitor inflammatory markers including CRP, D-dimer every 48 hours. D-dimer extremely elevated. Patient already had CT chest with contrast which is negative for PE. Not a CTA study done. Did have elevated troponin on admission so for now we will start on full dose Lovenox 1 mg/kg body weight every 12 hourly. Depending on the clinical picture and renal function within next 24 to 48 hours can plan for CTA. Continue monitors D-dimer every 48 hours for now. Last echocardiogram from March showed an EF of 60 to 65% without regional wall motion bradycardia, mild TR. Strict input output charting, daily weights. (6) Elevated troponin: Cannot rule out non-ST elevation NM. Concerns for type II NM. Echocardiogram to monitor EF and rule out regional wall motion abnormality. Appreciate A1c, lipid panel. Continue with home dose of aspirin 81 mg daily. (7) C. difficile colitis: Continue oral vancomycin. Colitis seen on CT abdomen/pelvis. Extensive diarrhea. Start on 250 every 6 hr of oral vancomycin. Will plan to continue oral vancomycin for at least 2 weeks after completion of IV antibiotic course. (8) Acute metabolic encephalopathy: Most likely in setting of severe infection/COVID-19 along with high doses of gabapentin and oxycodone. Continue to monitor. Currently sedated. Will plan for daily sedation medication. (9) Port-A-Cath in place: (10) Small cell lung cancer: Qualifiers: Laterality: unspecified laterality Lung location: unspecified part of lung Qualified Code(s): C34.90 - Malignant neoplasm of unspecified part of unspecified bronchus or lung (11) Metastasis to brain: (12) MRSA nasal colonization: (13) Diarrhea: Plan Chronic medication including Xanax as needed, sertraline. Restart gabapentin at a lower dose to avoid withdrawals at 100 mg 3 times daily. CODE STATUS: will be the DPOA. Full code. Attestations Medical Necessity Statement*: Continue admission for assessment and management of respiratory failure, failed extubation. Coding Level of Care Code Critical Care >/= 30 minutes Critical care time (in minutes): 50 The high probability of a clinically significant, sudden or life threatening deterioration, as referenced in this documentation, required my full and direct attention, intervention and personal management. The critical care time shown is in addition to time spent performing any reported separately billable procedures and includes the following: [x] Data and vital sign review and interpretation [x] Patient assessment, examination and intervention [x] Medication orders and management [x] Patient/Family updates as able [x] Care Coordination and Documentation. Diagnoses Respiratory failure J96.90 DVT (deep venous thrombosis) I82.409 Septic shock A41.9; R65.21 Acute hypoxic respiratory failure J96.01 COVID-19 U07.1 Elevated troponin R79.89 C. difficile colitis A04.72 Acute metabolic encephalopathy G93.41 Port-A-Cath in place Z95.828 Small cell carcinoma of lung, unspecified laterality, unspecified part of lung C34.90 Laterality: unspecified laterality Lung location: unspecified part of lung Metastasis to brain C79.31 MRSA nasal colonization Z22.322 Diarrhea R19.7
[2023-11-25] MEDS: FUROsemide 10 mg/mL SDV 2mL 20 MG IVP (14:11)
[2023-11-25] MEDS: dexamethasone 4 mg/mL INJ 6 MG IVP (14:11)
[2023-11-25 14:27] LABS: Platelet Count 52 10^3/cmm (157-399)
[2023-11-25] MEDS: vancomycin 1,500 MG/300 ML PIGGYBACK 200 MG IV (14:35)
--- NOTE | 2023-11-25 16:01 | P.CONIM_ITS ---
Providers/Reason For Consult 2 Consulting Physician/Specialty*: Mervin Noe MD/ Cardiology Reason for Consult*: IVC filter placement Requesting Physician: Dr Mcbride Attending Physician: Salazar Mcbride Primary Care Provider: Lianet Hannah MD History of Present Illness History of Present Illness Karl Martinez is a 68 year old male who was admitted to hospital with respiratory failure. Was found to have COVID-19 infection. He was extubated but had to be reintubated as he did not tolerate extubation. Patient also found to have a right lower extremity DVT and superficial femoral vein, popliteal vein and peroneal vein. He was started on anticoagulation however started having blood in stools. Hemoglobin has dropped to 8.4. EKG shows sinus tachycardia. Echo was performed that showed normal LV systolic function. He has metastatic lung cancer with mets to brain. Review of Systems 2 General: Reports: ROS unobtainable due to endotracheal tube Medications/Allergies Home Medications Medication Instructions Recorded Confirmed Last Taken Type aspirin 81 mg tablet,delayed 81 mg PO QAM 01/07/22 11/21/23 11/20/23 History release nitroglycerin 0.4 mg sublingual 0.4 mg sublingual Q5M PRN Chest 02/21/22 11/21/23 Unknown Rx tablet (Nitrostat) Pain #25 tabs ferrous sulfate 325 mg (65 mg 325 mg PO QPM 06/28/22 11/21/23 11/20/23 History iron) tablet cholecalciferol (vitamin D3) 125 125 mcg PO DAILY 08/09/22 11/21/23 11/20/23 History mcg (5,000 unit) capsule mecobalamin (vitamin B12) 500 mcg 500 mcg PO DAILY 08/09/22 11/21/23 11/20/23 History chewable tablet [id number] 150 mcg-vit K1 1 tab PO DAILY 08/09/22 11/21/23 11/20/23 History 30 mcg-lycop 300 mcg-lutein tablet (Centrum Minis Men 50 Plus) lorazepam 1 mg tablet 0.5 - 1 mg (0.5 - 1 x 1 mg) PO Q6H 12/16/22 11/21/23 Unknown Rx PRN Severe Nausea #30 tabs acetaminophen 650 mg 650 mg PO Q8H PRN pain or 12/17/22 11/21/23 06/04/23 History tablet,extended release (Pain inflammation Relief (acetaminophen)) metoprolol tartrate 25 mg tablet 12.5 mg (1/2 x 25 mg) PO BID #30 06/16/23 11/21/23 11/20/23 Rx tabs omeprazole 20 mg capsule,delayed 20 mg PO BID 90 days #180 caps 08/14/23 11/21/23 11/20/23 Rx release sertraline 25 mg tablet (Zoloft) 25 mg PO DAILY 90 days #90 tabs 08/15/23 11/21/23 11/20/23 Rx tizanidine 2 mg tablet 2 mg PO Q8H PRN muscle spasticity 08/15/23 11/21/23 Unknown Rx #90 tabs acetaminophen 300 mg-codeine 30 mg 1 tab PO Q8H PRN pain 7 days #21 10/13/23 11/21/23 Unknown Rx tablet tabs oxycodone 15 mg tablet 15 mg PO Q6H PRN pain 30 days #120 11/03/23 11/21/23 11/20/23 Rx tabs ascorbic acid (vitamin C) 500 mg 250 mg PO BID 11/21/23 11/21/23 11/20/23 History tablet (Vitamin C) gabapentin 300 mg capsule 300 mg PO TID 11/21/23 11/21/23 Unknown History Allergies Allergy/AdvReac Type Severity Reaction Status Date / Time [id number]-[id number] Reductase Allergy Unknown Verified 11/20/23 09:17 Inhibitor Current Medications Generic Name Dose Route Start Last Admin Trade Name Freq PRN Reason Stop Dose Admin Albuterol/Ipratropium 3 ml 11/21/23 20:00 11/25/23 14:04 Ipratropium-Albuterol 3 Ml Neb INHALATION 3 ml Q6H.RESP DESTINY Administration Aspirin 81 mg 11/22/23 06:00 11/25/23 05:51 Aspirin 81 Mg Ec Tablet PO 81 mg QAM DESTINY Administration Budesonide 0.5 mg 11/22/23 20:00 11/25/23 08:02 Budesonide 0.5 Mg/2 Ml Neb INHALATION 0.5 mg BID.RESPIRATORY DESTINY Administration Chlorhexidine Gluconate 1 applic 11/22/23 00:15 11/25/23 00:29 Chlorhexidine Gluconate 4% Btl 118 Ml TOPICAL Not Given Q24H DESTINY Dexamethasone 6 mg 11/21/23 15:30 11/25/23 14:11 Dexamethasone 4 Mg/Ml Inj IVP 6 mg Q24H DESTINY Administration Gabapentin 100 mg 11/21/23 21:15 11/25/23 14:11 Gabapentin 100 Mg Capsule PO 100 mg TID DESTINY Administration Propofol 1,000 mg in 100 mls @ 0 mls/hr 11/21/23 11:15 11/25/23 11:56 Diprivan IV 25 mcg/kg/min .Q0M DESTINY 12.93 mls/hr Administration Protocol Per Protocol Norepinephrine Bitartrate 4 mg in 250 mls @ 0 mls/hr 11/21/23 12:00 11/24/23 21:01 Levophed IV 0 mcg/min .Q0M DESTINY 0 mls/hr Titration Protocol Per Protocol Remdesivir 100 mg/ Sodium 100 mls @ 100 mls/hr 11/22/23 18:00 11/24/23 23:40 Chloride IV 11/25/23 18:59 Infused Q24H DESTINY Infusion Fentanyl 1,000 mcg in 100 mls @ 0 mls/hr 11/21/23 18:45 11/25/23 08:21 Sublimaze IV 75 mcg/hr .Q0M DESTINY 7.5 mls/hr Administration Protocol Per Protocol Albumin Human 25 g in 100 mls @ 60 mls/hr 11/23/23 09:15 11/24/23 19:00 Albumin IV Infused Q8H DESTINY Infusion Dexmedetomidine/Sodium Chloride 400 mcg in 100 mls @ 0 mls/hr 11/24/23 19:15 11/24/23 22:36 Precedex IV 0 mcg/kg/hr .Q0M DESTINY 0 mls/hr Titration Protocol Per Protocol Vancomycin HCl 1,500 mg in 300 mls @ 200 mls/hr 11/24/23 21:00 11/25/23 14:35 Vancocin IV 200 mls/hr Q18H DESTINY Administration Piperacillin Sod/Tazobactam 50 mls @ 12.5 mls/hr 11/24/23 23:00 11/25/23 14:11 Sod 3.375 gm/ Sodium Chloride IV 50 mls/hr Q8H DESTINY Administration Pantoprazole Sodium 40 mg 11/24/23 19:45 11/25/23 08:22 Pantoprazole 40 Mg Sdv IVP 40 mg Q12H DESTINY Administration Sertraline HCl 25 mg 11/22/23 09:00 11/25/23 08:22 Sertraline 50 Mg Tablet PO 25 mg DAILY DESTINY Administration Vancomycin HCl 250 mg 11/22/23 09:00 11/25/23 14:13 Vancomycin 100 Mg/1 Ml Oral Syringe PO 250 mg QID DESTINY Administration Zinc Gluconate 50 mg 11/22/23 09:00 11/25/23 08:22 Zinc Gluconate 50 Mg Tablet PO 50 mg DAILY DESTINY Administration PFSH Acute 2 PFSH: Medical History Falls frequently Frail elderly Small cell lung cancer Pneumonia Port-A-Cath in place Neutropenia Chronic back pain GERD (gastroesophageal reflux disease) Coronary artery disease Hypertension Abdominal aortic aneurysm Congenital umbilical hernia Carpal tunnel syndrome on both sides Past heart attack COPD (chronic obstructive pulmonary disease) Surgical History Hx of umbilical hernia repair History of tonsillectomy and adenoidectomy History of bilateral carpal tunnel release S/P AAA repair using bifurcation graft History of endovascular stent graft for abdominal aortic aneurysm (AAA) History of heart artery stent S/P rotator cuff repair Family History Family/Other Cancer Father CAD (coronary artery disease) Stroke Brother CAD (coronary artery disease) Brother CAD (coronary artery disease) Diabetes Sister CAD (coronary artery disease) Cancer Chronic kidney disease (CKD) Diabetes Sister Cancer Diabetes Mother Stroke Other Hyperlipidemia Hypertension Psychiatric illness Denies family history of Clotting disorder Dementia Suicide Anesthesia complication Bleeding disorder Lung disease Social History Smoking and tobacco/nicotine status: unknown if used tobacco/nicotine Quit status (tobacco/nicotine): has quit using Year quit tobacco: 2021 Former quit date comment: December 2021 Alcohol intake: never Substance/Drug Use: never Vitals/I&O/Wt Last Vital Signs Temp 97.4 F L 11/25/23 08:15 Pulse 69 11/25/23 14:08 Resp 14 11/25/23 15:10 BP 108/70 11/25/23 12:00 Pulse Ox 96 11/25/23 15:10 O2 Del Method Mechanical Ventilation 11/25/23 14:05 O2 Flow Rate 15 11/24/23 19:10 FiO2 35 11/25/23 15:10 11/25/23 11/25/23 11/25/23 06:59 14:59 22:59 Intake Total 386.629 / 2168.033 127.906 / 127.906 Output Total 550 / 1650 Balance -163.371 / 518.033 127.906 / 127.906 Weight last 48 hrs Weight 195 lb 12.8 oz Weight 209 lb 7.026 oz Weight 202 lb 7.026 oz Physical Exam 2 Narrative: GENERAL: Patient is intubated and sedated EXTREMITIES: Lower extremities with 1+ edema bilaterally. Extremities are warm. Urinary Catheter Management: Strange: Cath Placed During This Visit: yes Reason for Continuing Indwelling Catheter: Accurate Measurement of Urinary Output in Critically Ill Patients Urinary Catheter Date of Insertion: 11/21/23 Urinary Catheter Time of Insertion: 11:40 Data 11/25/23 12:01 11/25/23 03:51 Micro: Microbiology 11/21/23 11:25 Gram Stain - Final Sputum - Endotracheal Tube Aspirate Sputum Culture - Final Acinetobacter baumannii/haemol Haemophilus Influenzae A&P Assessment and plan (1) DVT (deep venous thrombosis): (2) Thrombocytopenia: Plan Patient has DVT and is not tolerating anticoagulation. Has significant thrombocytopenia with last platelet count of 52. Hemoglobin dropped with anticoagulation. Will proceed with IVC filter placement. Risks and benefits of the procedure been discussed with patient who is the DPOA. She understands that and wants to proceed. Can continue anticoagulation for today and recheck hemoglobin in the PM. NPO past midnight. Consult Attestations 2 Medical Necessity Statement: Care expected to cross 2 midnights. Coding Level of Care Code Acute Code for [facility] Diagnoses DVT (deep venous thrombosis) I82.409 Thrombocytopenia D69.6
[2023-11-25 16:34] LABS: Partial Thromboplastin Time 32.4 SECONDS (23.9-36.7)
[2023-11-25] MEDS: heparin drip 25,000 UNIT/500 ML PREMIX 24.87 UNIT IV (16:58)
[2023-11-25] MEDS: remdesivir 100 MG in sodium chloride 0.9% (100 ml) 100 ML IV (18:44)
[2023-11-25 23:30] LABS: Partial Thromboplastin Time 88.6 SECONDS (23.9-36.7)
[2023-11-26] VITALS (55 sets, daily range): BP systolic 81–149; BP diastolic 59–82; PULSE 59–91; RESP 14–20; TEMP 35.8–37.3; O2SAT 89–98
[2023-11-26] MEDS: chlorhexidine gluconate 4% Btl 118 mL 1 APPLIC TOPICAL (00:08)
[2023-11-26] MEDS: nystatin powder 15 gm Btl 1 APPLIC TOPICAL ×2 (00:09→08:41)
[2023-11-26 00:50] LABS: Glucose Point of Care 126 mg/dL (70-110)
[2023-11-26] MEDS: ipratropium-albuterol 3 mL Neb INHALATION ×4 (02:26→20:38)
[2023-11-26] MEDS: propofol 1,000 MG/100 ML INJ 12.93 MG IV (03:35)
[2023-11-26 05:53] LABS: Basophils % 0.3 %; Hematocrit 26.3 % (37-53); Lymphocytes # 0.4 10^3/uL (0.8-4.8); Mean Corpuscular HGB Conc 32.7 g/dL (30-55); Mean Corpuscular Hemoglobin 33.3 pg (27-33); Mean Corpuscular Volume 101.9 fl (82-101); Mean Platelet Volume 11.9 fL (7.4-10.4); Monocytes # 0.1 10^3/uL (0.2-0.9); Monocytes % 2.7 %; Neutrophils # 3.09 10^3/uL (1.8-7.7); Neutrophils % 82.5 %; Nucleated Red Blood Cells % 0 %; Platelet Count 65 10^3/cmm (157-399); Red Blood Count 2.58 10^6/uL (3.85-5.65); Red Cell Distribution Width 16.4 % (12.1-15.1); White Blood Count 3.74 10^3/uL (3.29-11.43)
[2023-11-26] MEDS: aspirin 81 mg EC Tablet PO (06:08)
[2023-11-26] MEDS: piperacillin-tazobactam 3.375 GM in sodium chloride 0.9% (plus) 50 ML IV ×3 (06:08→22:14)
[2023-11-26 06:10] LABS: Alanine Aminotransferase 23 U/L (0-41); Albumin Level 3.2 g/dL (3.5-5.2); Alkaline Phosphatase 59 U/L (40-130); Anion Gap 14.2 (5-19); Aspartate Amino Transferase 22 U/L (0-40); Blood Urea Nitrogen 21 mg/dL (8-23); Calcium 8.5 mg/dL (8.5-10.5); Carbon Dioxide 25 mmol/L (22-29); Chloride 104 mmol/L (98-107); Creatinine Clr Calc Pharmacy 92.6762; Globulin 1.9 g/dL (1.3-4.6); Glomerular Filtration Rate 213.3 mL/min (90-130); Glucose 107 mg/dL (65-115); Osmolality Calculated 293 mOsm/kg (285-295); Potassium 3.2 mmol/L (3.5-5.1); Sodium 140 mmol/L (136-145); Total Bilirubin 0.4 mg/dL (0.15-1.2); Total Protein 5.1 g/dL (6.6-8.7)
[2023-11-26 06:11] LABS: C Reactive Protein 80.5 mg/L (0.0-4.9)
[2023-11-26 06:14] LABS: Partial Thromboplastin Time 85.4 SECONDS (23.9-36.7)
[2023-11-26 07:17] LABS: Slide Review Slide Review Perform
--- NOTE | 2023-11-26 07:50 | XACV_ITS ---
Ht: 170 cm Wt: 88 kg BSA: 2.07 m2 Any Known Allergies: Gretchenbaine Gender: Male : 1955 Exam Type: Invasive Peripheral Vascular Procedure(s): Procedure Description: Peripheral vascular Intervention Procedure Description: PV IVC Filter Placement Exam Priority: Routine Abdominal Interventional Findings INDICATION: DVT/Thrombocytopenia/ GI bleed. Conclusions S/p successful IVC filter deployment. Recommendations Transfer back to ICU. If in future, patient can come off of anticoagulation, may consider filter retrival. Access Site Site: Left Femoral vein Sheath Size: 6 Fr Hemost... Method: Manual Compression Hemost... Success: Successful Procedure Details Findings Pre-Procedure Time Out. Identified patient by full name and date of as verbalized by the patient/guarantor. Does the consent match the physician's order: Yes. Accurate & Complete Informed Consent: Yes. Inpatient/Outpatient History & Physical on Chart: Yes. If H&P is completed, is and addenduem needed: No; If yes, is the addendum complete: N/A. Visualize and Verify Site with Patient/Guarantor: N/A. Relevant Radiology Images available: Yes. Pre-op teaching completed and patient verbalized understanding. The risks, benefits, and alternatives of sedation and/or procedure were discussed by physician. The patient agrees to continue. Procedure started. [facility] Clinical Fraility Score: 4: Vulnerable. Stallion Manager Indications: Other. Chest Pain Symptom Assessment: Asymptomatic. Cardiovascular Instability: No. Correct patient, site and procedure confirmed by cath team. Patient arrived to cath laboratory technician on a ventilator and will be managed by respiratiory. Patient intubated and sedated. Responds to painful stimuli only. Currently on Diprivan at 20mcg/kg/min, Fentanyl at 75 mcg/hr, Vancomycin at 200ml/hr, and Hepatin at 16.9ml/hr. Kathryn cath in place to the left upper chest. PICC line intact in the right upper extremity. bilateral groins was prepped with chloroprep then draped in the usual sterile fashion. Physician notified. Baseline sample Acquired. HR: 65 BPM. Patient's spouse in the cath laboratory technician waiting room, Dr. Noe will update at the completion of the procedure. Equipment: 6F - Femoral. Cardiac Cath Pack. [employer] Manifold Kit Model BT 2000. Heparinized Saline (2 units/mL), 1000 mL bag. Kit, Micropuncture. Physician arrived. Physician scrubbed in. Immediate Pre-Procedure Time Out. Correct Patient: Yes; Correct Procedure: Yes; Correct Site: Yes; Correct Patient Position: Yes; Correct Supplies: Yes; Dried Flammable Prep: Yes; Blood Products Available: N/A;. Lidocaine 1% infiltrated to the left groin. Venous access obtained with a micropuncture set. A 6 english Angled Pig catheter in over wire. Renogram performed in AP @ 10 mL/second for a total of 30 mL. Catheter removed over the standard wire. Heparin gtt stopped per MD order. Cook Celect Kaw IVC Filter inserted and deployed. Lot # [id number]. Exp. 2026-04-07. ACT drawn. Results 191 seconds. Therapeutic limits - pre-heparin administration 90-150 seconds and monitoring heparin during a vascular procedure >[address] Noe scrubbed out. A Manual Compression was successful obtaining hemostatsis at the Left Femoral vein insertion site. No VTE prophylaxis required. Medication's Wasted: Lidocaine 1% = 10 mL. Medication's Wasted: Heparin = 1000 units. Post-op diagnosis: S/P IVC filter insertion. Complications: nonr. Estimated blood loss: 5mL-10mL. Airway - Remains intubated and managed by respioratory. Responsiveness - Sedated on Diprivan, responds to painful stimuli. Circulation: W/N/L, pulses unchanged. Nausea/Vomiting: No. Procedure completed. Patient transferred by bed to ICU. Vital chart was stopped. I, the attending physician, have reviewed and verified all procedure medications. Yes, all medications given per verbal order History/Risk Factors Hypertension: Yes Dyslipidemia: No Peripheral Arterial Disease (PAD): No Obesity: No Renal Disease: No Tobacco Use: Never Prior Interventions PCI: No CABG: No Valve Surgery: No Report Signatures Finalized by Mervin Noe MD on 11/26/2023 12:36 PM
[2023-11-26] MEDS: budesonide 0.5 mg/2 mL Neb INHALATION ×2 (07:53→20:38)
[2023-11-26] MEDS: potassium chloride oral liq 20 mEq/15 mL UDC 40 MEQ PO (08:40)
[2023-11-26] MEDS: zinc gluconate 50 mg Tablet PO (08:40)
[2023-11-26] MEDS: pantoprazole 40 mg SDV IVP ×2 (08:40→19:29)
[2023-11-26] MEDS: sertraline 50 mg Tablet 25 MG PO (08:40)
[2023-11-26] MEDS: gabapentin 100 mg Capsule PO ×3 (08:41→21:07)
[2023-11-26] MEDS: vancomycin 1,500 MG/300 ML PIGGYBACK 200 MG IV (08:41)
[2023-11-26] MEDS: vancomycin 100 mg/1 mL Oral Syringe 250 MG PO ×2 (08:42→13:10)
[2023-11-26] MEDS: fentaNYL 1,000 MCG/100 ML BAG 7.5 MCG IV ×2 (09:15→22:30)
--- NOTE | 2023-11-26 09:26 | W.PM.OPSUD ---
Surgery/Procedure H&P Update DATE OF PROCEDURE: November 26, 2023 DATE H&P PERFORMED: 11/25/23 H&P UPDATE INFORMATION: I have reviewed H&P completed within last 30 days, I have examined patient prior to procedure and No changes to prior documentation PREOP DIAGNOSIS: GI Bleed/ DVT/ thrombocytopenia/anemia PRIMARY INDICATION FOR PROCEDURE: GI Bleed/ DVT/ thrombocytopenia/anemia PLANNED PROCEDURE: IVC filter placement PATIENT REASSESSED PRIOR TO SEDATION, WITH NO CHANGE NOTED: Yes OTHER PERTINENT EXAM FINDINGS: Patient intubated and sedated. Regular rate and rhythm. Diminished air entry.
[2023-11-26] MEDS: propofol 1,000 MG/100 ML INJ 10.34 MG IV ×2 (11:06→18:18)
[2023-11-26] MEDS: FUROsemide 10 mg/mL SDV 2mL 20 MG IVP (11:15)
--- NOTE | 2023-11-26 11:53 | P.PN_ITS ---
Subjective 2 Subjective: Patient had IVC placed. Hemoglobin is stable. Vitals/I&O/Wt Last Vital Signs Temp 96.5 F L 11/26/23 07:30 Pulse 68 11/26/23 09:30 Resp 14 11/26/23 11:15 BP 113/71 11/26/23 10:00 Pulse Ox 95 11/26/23 11:15 O2 Del Method Mechanical Ventilation 11/26/23 08:00 O2 Flow Rate 15 11/24/23 19:10 FiO2 30 11/26/23 11:15 11/25/23 11/26/23 11/26/23 22:59 06:59 14:59 Intake Total 216.14 / 344.046 475.672 / 819.718 995.565 / 995.565 Output Total 1900 / 1900 900 / 2800 Balance -1683.86 / -1555.954 -424.328 / -1980.282 995.565 / 995.565 Weight last 48 hrs Weight 195 lb 1.745 oz Weight 195 lb 12.8 oz Physical Exam 2 Narrative: GENERAL: Patient is intubated and sedated Resp: Diminished air entry bilaterally EXTREMITIES: Lower extremities with 1+ edema bilaterally. Extremities are warm. Urinary Catheter Management: Strange: Cath Placed During This Visit: yes Reason for Continuing Indwelling Catheter: Accurate Measurement of Urinary Output in Critically Ill Patients Urinary Catheter Date of Insertion: 11/21/23 Urinary Catheter Time of Insertion: 11:40 Data 11/26/23 05:40 11/26/23 05:40 A&P Assessment and plan (1) DVT (deep venous thrombosis): (2) Thrombocytopenia: Plan Patient is stable. Hemoglobin did not drop further. IVC filter placed. Can stop anticoagulation as was having GI bleed Thank you for involving us with care of this patient. We will continue to follow. Please call with questions. Attestations 2 Medical Necessity Statement*: Care expected to cross 2 midnights. Coding Level of Care Code Acute Code for [facility] Diagnoses DVT (deep venous thrombosis) I82.409 Thrombocytopenia D69.6
--- NOTE | 2023-11-26 12:41 | PC.SOCIAL ---
IMM Updated Updated pt's on IMM. No questions voiced. Provided pt a copy. Initialed, dated, & timed copy in chart.
[2023-11-26 12:45] LABS: Partial Thromboplastin Time 31.1 SECONDS (23.9-36.7)
[2023-11-26] MEDS: dexamethasone 4 mg/mL INJ 6 MG IVP (15:10)
[2023-11-26 15:25] LABS: Basophils % 0.3 %; Eosinophils # 0.1 10^3/uL (0.0-0.8); Eosinophils % 1.5 %; Hematocrit 27.9 % (37-53); Lymphocytes # 0.4 10^3/uL (0.8-4.8); Mean Corpuscular HGB Conc 32.3 g/dL (30-55); Mean Corpuscular Hemoglobin 32.8 pg (27-33); Mean Corpuscular Volume 101.8 fl (82-101); Mean Platelet Volume 11.6 fL (7.4-10.4); Monocytes # 0.1 10^3/uL (0.2-0.9); Monocytes % 2.1 %; Neutrophils # 2.66 10^3/uL (1.8-7.7); Neutrophils % 79.4 %; Nucleated Red Blood Cells % 0 %; Platelet Count 72 10^3/cmm (157-399); Red Blood Count 2.74 10^6/uL (3.85-5.65); Red Cell Distribution Width 16.4 % (12.1-15.1); White Blood Count 3.35 10^3/uL (3.29-11.43)
[2023-11-26 15:29] LABS: Methicillin-Resist S.aureu PCR NOT DETECTED (NOT DETECTED)
[2023-11-26 15:34] LABS: Partial Thromboplastin Time 63.2 SECONDS (23.9-36.7)
[2023-11-26 16:02] LABS: Slide Review Slide Review Perform
--- NOTE | 2023-11-26 16:55 | P.PN_ITS ---
Subjective 2 Subjective: Intubated, with sedation running. Opens eyes, appears to nod, but does not really follow directions. Does not appear in discomfort. Vitals/I&O/Wt Last Vital Signs Temp 96.5 F L 11/26/23 07:30 Pulse 61 11/26/23 16:00 Resp 14 11/26/23 16:00 BP 110/70 11/26/23 16:00 Pulse Ox 96 11/26/23 16:00 O2 Del Method Mechanical Ventilation 11/26/23 13:41 O2 Flow Rate 15 11/24/23 19:10 FiO2 35 11/26/23 14:39 11/26/23 11/26/23 11/26/23 06:59 14:59 22:59 Intake Total 475.672 / 369.237 8134.388 / 1020.388 Output Total 900 / 2800 1650 / 1650 Balance -424.328 / -4483.272 1874.388 / 1020.388 -1650 / -629.612 Weight last 48 hrs Weight 88.5 kg Weight 88.813 kg Physical Exam 2 Narrative: Accompanied by his and daughter at bedside. Const: COMMON NORMALS: alert GENERAL APPEARANCE: cooperative and patient mechanically ventilated ORIENTATION/CONSCIOUSNESS: Yes awake OTHER: During second visit noted some bloody discharge/clot in the mouth. Right nare with some inflamed, easily friable mucosa although do not see quynh bleeding at least in the anterior naris, with some narrowing of the nasal passage on the right with inflamed mucosa and/or deviated septum. HENMT: COMMON NORMALS: oropharynx normal Neck/C-Spine: COMMON NORMALS: no JVD Resp: COMMON NORMALS: normal respiratory effort and clear to auscultation bilaterally AUSCULTATION: clear to auscultation bilaterally and wheezes right lower OTHER: Coarse lung sounds. Cardio: COMMON NORMALS: no JVD, regular rhythm, S1 normal heart sound present, S2 normal heart sound present and No murmurs present (Cardio) RHYTHM: regular rhythm HEART SOUNDS: S1 normal heart sound present and S2 normal heart sound present GI: COMMON NORMALS: Normal to inspection, nondistended, normoactive bowel sounds present, Soft to palpation and non-tender PALPATION: Yes Soft to palpation Extremity: COMMON NORMALS: no joint enlargement and no pedal edema OTHER: Edema of hands, L>R Neuro: COMMON NORMALS: moves all extremities SENSORIUM/ORIENTATION: Yes alert Skin: COMMON NORMALS: no rashes or lesions noted GENERAL SKIN EXAM: no rashes or lesions noted Urinary Catheter Management: Strange: Cath Placed During This Visit: yes Reason for Continuing Indwelling Catheter: Accurate Measurement of Urinary Output in Critically Ill Patients Urinary Catheter Date of Insertion: 11/21/23 Urinary Catheter Time of Insertion: 11:40 Data 11/26/23 15:15 11/26/23 05:40 Micro: Microbiology 11/21/23 13:30 Blood Culture - Final Blood NO GROWTH AFTER 5 DAYS 11/21/23 13:51 Blood Culture - Final Blood NO GROWTH AFTER 5 DAYS A&P Assessment and plan (1) Respiratory failure: Reviewed vitals, ventilator settings, intake and output, CBC, PTT, CMP, CT chest. Oxygenation with improvement since yesterday. FiO2 decreased down to 35%. Chest CT with multifocal patchy bilateral infiltrates similar to prior, but also with some increase in right pleural effusion. He is making urine. We gave him a dose of Lasix 20 mg IV. Discussed with his family. He additionally underwent IVC filter placement today. Did not tolerate heparin well this morning, no further decrease in hemoglobin, no outward bleeding, however, with bleeding out of the oral cavity this afternoon heparin had to be shut off. Reexamined. No obvious bleeding in the nares, although some inflammation, friable mucosa in the right nose with some narrowing, but I do not visualize obvious bleeding. Requested repeat PTT, hemoglobin. Unable to continue anticoagulation. Continue empiric antibiotic coverage with Zosyn, vancomycin. Completed remdesivir course. Continue Decadron for now. Has not required pressor. Breathing trial today. Discussed with RT. Will reassess again in the morning, breathing trial, reassess for any additional bleeding, consideration of extubation possibly with CPAP backup, discussed we will rather not extubate straight to CPAP with risk of aspiration. Further consider additional speech therapy assessment, possibly modified barium swallow before resuming oral intake. If unable to extubate discussed starting tube feeds. Consideration of LTAC. (2) DVT (deep venous thrombosis): Status post IVC filter today per discussion with regulatory affairs strategy specialist. Reviewed hemoglobin, platelets today, without worsening, no outward bleeding, heparin initially continued, but developed oral bleeding, anticoagulation had to be stopped. Recheck PTT, CBC requested. CT of the head reviewed. As mental status has been difficult to assess soft ETT you significant restlessness, intolerance, additionally assess CT of the head. Discussed risk of progression of thrombosis, risk of DVT with underlying malignancy. Discussed risk of treatment, consideration of IVC filter versus anticoagulation discussed with him and his as well as with his oncologist. Discussed risk of anticoagulation in setting of thrombocytopenia, setting of risk of [employer] bleeding, history of metastatic malignancy. Reviewed MRI from for now consensus is while his platelets are above 50,000 resuming anticoagulation as per discussion with hematology resuming anticoagulation with Eliquis 5 mg without the 10 mg dosing. Monitor for risk of bleeding. (3) Septic shock: Weaned off pressor. Keep mean artery pressure 65. Continue with normal saline at 75 cc/h. Wean Levophed drip keeping mean artery pressure as per goal. (4) Acute hypoxic respiratory failure: As above. Most likely in combination of altered mental status along with pneumonitis as seen on CT. COVID-19 positive. Urine Legionella bacterial antigen negative. Sputum culture, blood culture Acinetobacter, haemophilus influenza. Negative MRSA swab. (5) COVID-19: Completed remdesivir. Discontinued. Continue Decadron. Complete remdesivir, continue Decadron, complicated by DVT. Continue decannulation as above, at risk of bleeding with thrombocytopenia, SCR[employer]ER metastatic disease. Monitor for any bleeding. Reassess platelets. Hypoxia secondary to COVID-19 pneumonia: Severe disease. Oxygen supplementation keeping saturation over 88%. Dexamethasone 6 mg daily. Remdesivir to finished a 5-day course. Zinc daily DuoNeb every 6 hour, budesonide twice daily Last echocardiogram from March showed an EF of 60 to 65% without regional wall motion bradycardia, mild TR. (6) Elevated troponin: Cannot rule out non-ST elevation SC. Concerns for type II SC. Continues with aspirin. Unable to tolerate anticoagulation. Echocardiogram to monitor EF and rule out regional wall motion abnormality. Appreciate A1c, lipid panel. Continue with home dose of aspirin 81 mg daily. (7) C. difficile colitis: Continue oral vancomycin. Decrease to [address] mg[address]itis seen on CT abdomen/pelvis. (8) Acute metabolic encephalopathy: Most likely in setting of severe infection/COVID-19 along with high doses of gabapentin and oxycodone. Continue to monitor. Currently sedated. Will plan for daily sedation medication. (9) Port-A-Cath in place: (10) Small cell lung cancer: Qualifiers: Laterality: unspecified laterality Lung location: unspecified part of lung Qualified Code(s): C34.90 - Malignant neoplasm of unspecified part of unspecified bronchus or lung (11) Metastasis to brain: (12) MRSA nasal colonization: (13) Diarrhea: Plan Chronic medication including Xanax as needed, sertraline. Restart gabapentin at a lower dose to avoid withdrawals at 100 mg 3 times daily. CODE STATUS: will be the DPOA. Full code. Attestations 2 Medical Necessity Statement*: Continue admission for assessment and management of respiratory failure with severe COVID-19, superimposed bacterial pneumonia, DVT, possible PE. Coding Level of Care Code Critical Care >/= 30 minutes Critical care time (in minutes): 40 The high probability of a clinically significant, sudden or life threatening deterioration, as referenced in this documentation, required my full and direct attention, intervention and personal management. The critical care time shown is in addition to time spent performing any reported separately billable procedures and includes the following: [x] Data and vital sign review and interpretation [x ] Patient assessment, examination and intervention [x] Medication orders and management [x] Patient/Family updates as able [x] Care Coordination and Documentation. Diagnoses Respiratory failure J96.90 DVT (deep venous thrombosis) I82.409 Septic shock A41.9; R65.21 Acute hypoxic respiratory failure J96.01 COVID-19 U07.1 Elevated troponin R79.89 C. difficile colitis A04.72 Acute metabolic encephalopathy G93.41 Port-A-Cath in place Z95.828 Small cell carcinoma of lung, unspecified laterality, unspecified part of lung C34.90 Laterality: unspecified laterality Lung location: unspecified part of lung Metastasis to brain C79.31 MRSA nasal colonization Z22.322 Diarrhea R19.7
[2023-11-26 19:33] LABS: Partial Thromboplastin Time 29.7 SECONDS (23.9-36.7)
[2023-11-26] MEDS: vancomycin 100 mg/1 mL Oral Syringe 125 MG PO (21:08)
[2023-11-27] VITALS (101 sets, daily range): BP systolic 74–136; BP diastolic 46–81; PULSE 65–83; RESP 14–18; TEMP 36.4–37.1; O2SAT 94–100
[2023-11-27] MEDS: ipratropium-albuterol 3 mL Neb INHALATION ×4 (02:06→20:19)
[2023-11-27] MEDS: chlorhexidine gluconate 4% Btl 118 mL 1 APPLIC TOPICAL (02:57)
[2023-11-27] MEDS: vancomycin 1,500 MG/300 ML PIGGYBACK 200 MG IV ×2 (03:19→20:16)
--- NOTE | 2023-11-27 03:29 | PC.NURSE ---
Addendum entered by Tammie Schneider RN 11/27/23 03:30: Witnessed Eri ROSEN waste 10ml poropofol Original Note: Propofol: Changed vented tubing for propofol, 10ml Propofol wasted. SILAS Cho witnessed waste.
[2023-11-27 04:06] LABS: Eosinophils % 0.3 %; Hematocrit 28.2 % (37-53); Lymphocytes # 0.5 10^3/uL (0.8-4.8); Lymphocytes % 13.6 %; Mean Corpuscular HGB Conc 32.3 g/dL (30-55); Mean Corpuscular Hemoglobin 32.9 pg (27-33); Mean Corpuscular Volume 101.8 fl (82-101); Mean Platelet Volume 11.7 fL (7.4-10.4); Monocytes # 0.1 10^3/uL (0.2-0.9); Monocytes % 2.5 %; Neutrophils # 2.89 10^3/uL (1.8-7.7); Neutrophils % 78.7 %; Nucleated Red Blood Cells % 0 %; Platelet Count 78 10^3/cmm (157-399); Red Blood Count 2.77 10^6/uL (3.85-5.65); Red Cell Distribution Width 16.3 % (12.1-15.1); White Blood Count 3.67 10^3/uL (3.29-11.43)
[2023-11-27] MEDS: propofol 1,000 MG/100 ML INJ 7.76 MG IV (04:13)
[2023-11-27 04:29] LABS: Alanine Aminotransferase 22 U/L (0-41); Albumin Level 3.3 g/dL (3.5-5.2); Alkaline Phosphatase 63 U/L (40-130); Anion Gap 14.4 (5-19); Aspartate Amino Transferase 19 U/L (0-40); Blood Urea Nitrogen 22 mg/dL (8-23); Calcium 8.7 mg/dL (8.5-10.5); Carbon Dioxide 27 mmol/L (22-29); Chloride 102 mmol/L (98-107); Creatinine Clr Calc Pharmacy 92.5219; Globulin 2.1 g/dL (1.3-4.6); Glomerular Filtration Rate 213.3 mL/min (90-130); Glucose 109 mg/dL (65-115); Osmolality Calculated 294 mOsm/kg (285-295); Potassium 3.4 mmol/L (3.5-5.1); Sodium 140 mmol/L (136-145); Total Bilirubin 0.6 mg/dL (0.15-1.2); Total Protein 5.4 g/dL (6.6-8.7)
[2023-11-27 04:48] LABS: Slide Review Slide Review Perform
[2023-11-27] MEDS: aspirin 81 mg EC Tablet PO (06:00)
[2023-11-27] MEDS: piperacillin-tazobactam 3.375 GM in sodium chloride 0.9% (plus) 50 ML IV ×3 (06:00→22:55)
[2023-11-27] MEDS: lidocaine 1% 5 ML in potassium chloride premix 100 ML 26.25 ML IV (06:15)
[2023-11-27] MEDS: budesonide 0.5 mg/2 mL Neb INHALATION ×2 (08:02→20:19)
[2023-11-27] MEDS: nystatin powder 15 gm Btl 1 APPLIC TOPICAL ×2 (08:53→16:23)
[2023-11-27] MEDS: sertraline 50 mg Tablet 25 MG PO (08:53)
[2023-11-27] MEDS: gabapentin 100 mg Capsule PO ×3 (08:53→20:11)
[2023-11-27] MEDS: zinc gluconate 50 mg Tablet PO (08:53)
[2023-11-27] MEDS: pantoprazole 40 mg SDV IVP ×2 (08:53→19:46)
[2023-11-27] MEDS: vancomycin 100 mg/1 mL Oral Syringe 125 MG PO ×4 (08:56→20:11)
[2023-11-27 09:40] LABS: Magnesium 1.7 mg/dL (1.7-2.3)
--- NOTE | 2023-11-27 12:09 | P.PN_ITS ---
Subjective 2 Subjective: Patient is stable. Left femoral vein access site is normal with no hematoma. Vitals/I&O/Wt Last Vital Signs Temp 97.6 F 11/27/23 08:00 Pulse 83 11/27/23 09:15 Resp 14 11/27/23 11:26 BP 117/73 11/27/23 09:15 Pulse Ox 99 11/27/23 11:26 O2 Del Method Mechanical Ventilation 11/27/23 08:03 O2 Flow Rate 15 11/24/23 19:10 FiO2 35 11/27/23 11:26 11/26/23 11/27/23 11/27/23 22:59 06:59 14:59 Intake Total 267.329 / 1287.717 497.813 / 1785.530 155 / 155 Output Total 2750 / 2750 400 / 3150 Balance -2482.671 / -1462.283 97.813 / -1364.470 155 / 155 Weight last 48 hrs Weight 190 lb 4.8 oz Weight 195 lb 1.745 oz Physical Exam 2 Narrative: GENERAL: Patient is intubated and sedated EXTREMITIES: Lower extremities with 1+ edema bilaterally. Extremities are warm. Urinary Catheter Management: Strange: Cath Placed During This Visit: yes Reason for Continuing Indwelling Catheter: Accurate Measurement of Urinary Output in Critically Ill Patients Urinary Catheter Date of Insertion: 11/21/23 Urinary Catheter Time of Insertion: 11:40 Data 11/27/23 03:17 11/27/23 03:17 Micro: Microbiology 11/21/23 13:30 Blood Culture - Final Blood NO GROWTH AFTER 5 DAYS 11/21/23 13:51 Blood Culture - Final Blood NO GROWTH AFTER 5 DAYS A&P Assessment and plan (1) DVT (deep venous thrombosis): (2) Thrombocytopenia: Plan Patient is status post IVC filter placement. Hemoglobin is stable. Platelet counts have improved today.No access site complications. Thank you for involving us with care of this patient. Please call with questions. Attestations 2 Medical Necessity Statement*: Care expected to cross 2 midnights. Coding Level of Care Code Acute Code for [facility] Diagnoses DVT (deep venous thrombosis) I82.409 Thrombocytopenia D69.6
[2023-11-27] MEDS: fentaNYL 1,000 MCG/100 ML BAG 2.5 MCG IV (13:36)
--- NOTE | 2023-11-27 14:23 | PM.PN ---
Subjective Subjective: Intubated, opens eyes. Tracks. Weakly squeezes hands. Vitals/I&O/Wt Last Vital Signs Temp 97.6 F 11/27/23 08:00 Pulse 83 11/27/23 09:15 Resp 14 11/27/23 11:26 BP 117/73 11/27/23 09:15 Pulse Ox 99 11/27/23 11:26 O2 Del Method Mechanical Ventilation 11/27/23 08:03 O2 Flow Rate 15 11/24/23 19:10 FiO2 35 11/27/23 11:26 11/26/23 11/27/23 11/27/23 22:59 06:59 14:59 Intake Total 267.329 / 1287.717 497.813 / 1785.530 173.583 / 173.583 Output Total 2750 / 2750 400 / 3150 Balance -2482.671 / -1462.283 97.813 / -1364.470 173.583 / 173.583 Weight last 48 hrs Weight 86.319 kg Weight 88.5 kg Physical Exam Narrative: Accompanied by his and daughter at bedside during second visit. Const: COMMON NORMALS: alert GENERAL APPEARANCE: cooperative and patient mechanically ventilated ORIENTATION/CONSCIOUSNESS: Yes awake HENMT: COMMON NORMALS: oropharynx normal Neck/C-Spine: COMMON NORMALS: no JVD Resp: COMMON NORMALS: normal respiratory effort and clear to auscultation bilaterally AUSCULTATION: clear to auscultation bilaterally and diminished lung sounds Cardio: COMMON NORMALS: no JVD, regular rhythm, S1 normal heart sound present, S2 normal heart sound present and No murmurs present (Cardio) RHYTHM: regular rhythm HEART SOUNDS: S1 normal heart sound present and S2 normal heart sound present GI: COMMON NORMALS: Normal to inspection, nondistended, normoactive bowel sounds present, Soft to palpation and non-tender PALPATION: Yes Soft to palpation Extremity: COMMON NORMALS: no joint enlargement and no pedal edema OTHER: Edema of hands, L>R Neuro: COMMON NORMALS: moves all extremities SENSORIUM/ORIENTATION: Yes alert Skin: COMMON NORMALS: no rashes or lesions noted GENERAL SKIN EXAM: no rashes or lesions noted Urinary Catheter Management: Strange: Cath Placed During This Visit: yes Reason for Continuing Indwelling Catheter: Accurate Measurement of Urinary Output in Critically Ill Patients Urinary Catheter Date of Insertion: 11/21/23 Urinary Catheter Time of Insertion: 11:40 Data 11/27/23 03:17 11/27/23 03:17 Micro: Microbiology 11/21/23 13:30 Blood Culture - Final Blood NO GROWTH AFTER 5 DAYS 11/21/23 13:51 Blood Culture - Final Blood NO GROWTH AFTER 5 DAYS A&P Assessment and plan (1) Respiratory failure: Reviewed vitals, ventilator settings, intake and output, CBC, PTT, CMP, discussed with nursing, manager of case management. He has still had some additional bleeding around ET tube from the mouth although less than yesterday. There is no ENT available on-call but will be available tomorrow. Discussed with family. Extubation deferred at current time pending further reassessment. Anticoagulation has been discontinued, PTT on review has normalized. Platelets on review are up to 78,000. Hemoglobin on review is at 9.1. Breathing trial today. Sedation cannot be entirely weaned as he was getting restless, biting on the tube with coming off of it, requiring low rate to be continued. Discussed options with his family, consideration of ENT consultation tomorrow, consideration of trial of additional extubation, consideration of transfer to LTAC for further weaning, extubation versus possibly tracheostomy given protracted ventilator dependence and other barriers. Family are agreeable to pursuing LTAC, although this will require insurance authorization. In the meantime tomorrow we can reach out and see if ENT is able to assess him. Continue to hold anticoagulation at current time. Has been getting weaker. PT has seen him, but with oral bleeding still there are concerns about setting him up this is for now deferred. Was given additional Lasix, has been producing urine, in negative balance -2.2 L. Monitor LY. Reassess volume status. With deferred extubation for today starting him on low rate tube feeds as well, monitor for any regurgitation. Will cut down Decadron to 3 mg Continue empiric antibiotic coverage with Zosyn, vancomycin. Completed remdesivir course. Has not required pressor. Breathing trial today. Discussed with RT. Consider modified barium swallow prior to resuming oral intake after extubation. Consider CPAP for sleep apnea but as discussed with oral bleeding this may be associated with to greater risk of aspiration. (2) DVT (deep venous thrombosis): Status post IVC filter today per discussion with vector control specialist. Platelets improving. PTT normalized. Reviewed hemoglobin, platelets today, without worsening, no outward bleeding, heparin initially continued, but developed oral bleeding, anticoagulation had to be stopped. Recheck PTT, CBC requested. CT of the head reviewed. 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 (3) Septic shock: Resolved.Weaned off pressor. Keep mean artery pressure 65. Continue with normal saline at 75 cc/h. Wean Levophed drip keeping mean artery pressure as per goal. (4) Acute hypoxic respiratory failure: As above. Most likely in combination of altered mental status along with pneumonitis as seen on CT. COVID-19 positive. Urine Legionella bacterial antigen negative. Sputum culture, blood culture Acinetobacter, haemophilus influenza. Negative MRSA swab. (5) COVID-19: Decrease Decadron to 3 mg. Completed remdesivir. Discontinued. Continue Decadron. Complete remdesivir, continue Decadron, complicated by DVT. Continue decannulation as above, at risk of bleeding with thrombocytopenia, [employer] metastatic disease. Monitor for any bleeding. Reassess platelets. Hypoxia secondary to COVID-19 pneumonia: Severe disease. Oxygen supplementation keeping saturation over 88%. Dexamethasone 6 mg daily. Remdesivir to finished a 5-day course. Zinc daily DuoNeb every 6 hour, budesonide twice daily Last echocardiogram from March showed an EF of 60 to 65% without regional wall motion bradycardia, mild TR. (6) Elevated troponin: Continue low-dose aspirin. Cannot rule out non-ST elevation [place]. Concerns for type II [place]. Continues with aspirin. Unable to tolerate anticoagulation. Echocardiogram to monitor EF and rule out regional wall motion abnormality. Appreciate A1c, lipid panel. Continue with home dose of aspirin 81 mg daily. (7) C. difficile colitis: Continue oral vancomycin. Decreased to 125 mg[address] Colitis seen on CT abdomen/pelvis. (8) Acute metabolic encephalopathy: Overall encephalopathy had improved. He has been alert when off sedation, following directions, but has been getting weaker. Most likely in setting of severe infection/COVID-19 along with high doses of gabapentin and oxycodone. Continue to monitor. Currently sedated. Will plan for daily sedation medication. (9) Port-A-Cath in place: (10) Small cell lung cancer: Qualifiers: Laterality: unspecified laterality Lung location: unspecified part of lung Qualified Code(s): C34.90 - Malignant neoplasm of unspecified part of unspecified bronchus or lung (11) Metastasis to brain: (12) MRSA nasal colonization: (13) Diarrhea: Plan Chronic medication including Xanax as needed, sertraline. gabapentin at a lower dose to avoid withdrawals at 100 mg 3 times daily. CODE STATUS: will be the DPOA. Full code. Attestations Medical Necessity Statement*: Continue admission for assessment and management of respiratory failure with severe COVID-19, superimposed bacterial pneumonia, DVT, oral bleeding. Coding Level of Care Code Critical Care >/= 30 minutes Critical care time (in minutes): 40 The high probability of a clinically significant, sudden or life threatening deterioration, as referenced in this documentation, required my full and direct attention, intervention and personal management. The critical care time shown is in addition to time spent performing any reported separately billable procedures and includes the following: [x] Data and vital sign review and interpretation [x] Patient assessment, examination and intervention [x] Medication orders and management [x] Patient/Family updates as able [x] Care Coordination and Documentation. Diagnoses Respiratory failure J96.90 DVT (deep venous thrombosis) I82.409 Septic shock A41.9; R65.21 Acute hypoxic respiratory failure J96.01 COVID-19 U07.1 Elevated troponin R79.89 C. difficile colitis A04.72 Acute metabolic encephalopathy G93.41 Port-A-Cath in place Z95.828 Small cell carcinoma of lung, unspecified laterality, unspecified part of lung C34.90 Laterality: unspecified laterality Lung location: unspecified part of lung Metastasis to brain C79.31 MRSA nasal colonization Z22.322 Diarrhea R19.7
--- NOTE | 2023-11-27 14:38 | PC.NUTR ---
Consult for tube feeds received. Recommend Jevity 1.5 beginning @ 20mls/hr and increasing 10 mls Q8H until goal rate of 40mls/hr is reached with [facility] of 120mls Q4H or per MD discretion.
[2023-11-27] MEDS: dexamethasone 4 mg/mL INJ 3 MG IVP (14:58)
[2023-11-27] MEDS: norepinephrine 4 MG/250 ML BAG 7.5 MG IV (22:50)
[2023-11-28] VITALS (106 sets, daily range): BP systolic 70–125; BP diastolic 48–80; PULSE 67–91; RESP 14–17; TEMP 36.3–36.5; O2SAT 93–100; BMI 30.2
[2023-11-28] MEDS: propofol 1,000 MG/100 ML INJ 5.17 MG IV ×2 (00:19→19:37)
[2023-11-28] MEDS: chlorhexidine gluconate 4% Btl 118 mL 1 APPLIC TOPICAL (01:12)
[2023-11-28] MEDS: ipratropium-albuterol 3 mL Neb INHALATION ×4 (01:50→20:15)
[2023-11-28 04:23] LABS: Basophils % 0.5 %; Eosinophils % 0.4 %; Lymphocytes # 0.5 10^3/uL (0.8-4.8); Lymphocytes % 8.3 %; Mean Corpuscular HGB Conc 32.1 g/dL (30-55); Mean Corpuscular Hemoglobin 33.5 pg (27-33); Mean Corpuscular Volume 104.3 fl (82-101); Mean Platelet Volume 11.9 fL (7.4-10.4); Monocytes # 0.1 10^3/uL (0.2-0.9); Nucleated Red Blood Cells % 0.4 %; Platelet Count 82 10^3/cmm (157-399); Red Blood Count 2.78 10^6/uL (3.85-5.65); Red Cell Distribution Width 16.7 % (12.1-15.1); White Blood Count 5.54 10^3/uL (3.29-11.43)
[2023-11-28 04:38] LABS: Alanine Aminotransferase 33 U/L (0-41); Albumin Level 3.1 g/dL (3.5-5.2); Alkaline Phosphatase 71 U/L (40-130); Aspartate Amino Transferase 32 U/L (0-40); Blood Urea Nitrogen 23 mg/dL (8-23); Calcium 8.7 mg/dL (8.5-10.5); Carbon Dioxide 25 mmol/L (22-29); Chloride 104 mmol/L (98-107); Creatinine Clr Calc Pharmacy 91.2897; Glomerular Filtration Rate 213.3 mL/min (90-130); Glucose 128 mg/dL (65-115); Osmolality Calculated 295 mOsm/kg (285-295); Sodium 140 mmol/L (136-145); Total Bilirubin 0.8 mg/dL (0.15-1.2); Total Protein 5.1 g/dL (6.6-8.7)
[2023-11-28 05:37] LABS: Slide Review Slide Review Perform
[2023-11-28] MEDS: piperacillin-tazobactam 3.375 GM in sodium chloride 0.9% (plus) 50 ML IV ×3 (06:07→22:03)
[2023-11-28] MEDS: aspirin 81 mg EC Tablet PO (06:08)
[2023-11-28] MEDS: pantoprazole 40 mg SDV IVP ×2 (07:41→19:36)
[2023-11-28] MEDS: budesonide 0.5 mg/2 mL Neb INHALATION ×2 (08:27→20:15)
[2023-11-28] MEDS: fentaNYL 1,000 MCG/100 ML BAG 2.5 MCG IV (09:22)
[2023-11-28] MEDS: zinc gluconate 50 mg Tablet PO (10:08)
[2023-11-28] MEDS: sertraline 50 mg Tablet 25 MG PO (10:08)
[2023-11-28] MEDS: vancomycin 100 mg/1 mL Oral Syringe 125 MG PO ×4 (10:08→21:49)
[2023-11-28] MEDS: gabapentin 100 mg Capsule PO ×3 (10:09→21:49)
[2023-11-28] MEDS: nystatin powder 15 gm Btl 1 APPLIC TOPICAL (10:09)
[2023-11-28] MEDS: FUROsemide 10 mg/mL SDV 2mL 20 MG IVP (10:09)
--- NOTE | 2023-11-28 13:35 | P.PN_ITS ---
Subjective 2 Subjective: Wakes up. Makes eye contact, nods answers. Having pain at the neuropathy site of the right chest after herpes zoster. Vitals/I&O/Wt Last Vital Signs Temp 97.5 F L 11/28/23 06:19 Pulse 76 11/28/23 11:00 Resp 14 11/28/23 11:50 BP 98/65 11/28/23 11:00 Pulse Ox 96 11/28/23 11:50 O2 Del Method Mechanical Ventilation 11/28/23 10:30 O2 Flow Rate 15 11/24/23 19:10 FiO2 35 11/28/23 11:50 11/27/23 11/28/23 11/28/23 22:59 06:59 14:59 Intake Total 493.254 / 666.837 550.199 / 1217.036 7.875 / 7.875 Output Total 500 / 500 500 / 1000 Balance -6.746 / 166.837 50.199 / 217.036 7.875 / 7.875 Weight last 48 hrs Weight 86.319 kg Weight 86.001 kg Weight 86.319 kg Physical Exam 2 Narrative: Accompanied by his . Const: COMMON NORMALS: alert GENERAL APPEARANCE: cooperative and patient mechanically ventilated ORIENTATION/CONSCIOUSNESS: Yes awake OTHER: I do not see any fresh blood today. HENMT: COMMON NORMALS: oropharynx normal Neck/C-Spine: COMMON NORMALS: no JVD Resp: COMMON NORMALS: normal respiratory effort and clear to auscultation bilaterally AUSCULTATION: clear to auscultation bilaterally, wheezes right lower and diminished lung sounds Cardio: COMMON NORMALS: no JVD, regular rhythm, S1 normal heart sound present, S2 normal heart sound present and No murmurs present (Cardio) RHYTHM: regular rhythm HEART SOUNDS: S1 normal heart sound present and S2 normal heart sound present GI: COMMON NORMALS: Normal to inspection, nondistended, normoactive bowel sounds present, Soft to palpation and non-tender PALPATION: Yes Soft to palpation Extremity: COMMON NORMALS: no joint enlargement and no pedal edema OTHER: Edema of hands, L>R Neuro: COMMON NORMALS: moves all extremities SENSORIUM/ORIENTATION: Yes alert Skin: COMMON NORMALS: no rashes or lesions noted GENERAL SKIN EXAM: no rashes or lesions noted Urinary Catheter Management: Strange: Cath Placed During This Visit: yes Reason for Continuing Indwelling Catheter: Accurate Measurement of Urinary Output in Critically Ill Patients Urinary Catheter Date of Insertion: 11/21/23 Urinary Catheter Time of Insertion: 11:40 Data 11/28/23 03:55 11/28/23 03:55 A&P Assessment and plan (1) Respiratory failure: Reviewed vitals, ventilator settings, intake and output, CBC, CMP, discussed with nursing, discussed with respiratory therapist - So far no additional bleeding. However, did have oral bleeding over the last 2 days. Platelets noted better up to 82,000. Hemoglobin 9.3. Unclear source of bleeding. Discussed with ENT, appreciate consultation. Continue minimal sedation as tolerating, wean off where possible. Additionally pending authorization for LTAC. Noted in negative balance with additional Lasix. Blood pressure soft 79/61. Will give a dose of albumin, noted albumin 3.1. Monitor LY. Reassess volume status. With deferred extubation for today starting him on low rate tube feeds as well, monitor for any regurgitation. Cut down Decadron to 3 mg Continue empiric antibiotic coverage with Zosyn, vancomycin. Completed remdesivir course. Consider modified barium swallow prior to resuming oral intake after extubation. Consider CPAP for sleep apnea but as discussed with oral bleeding this may be associated with to greater risk of aspiration. (2) DVT (deep venous thrombosis): Status post IVC filter today per discussion with real estate utilization officer. Platelets improving. PTT normalized. Reviewed hemoglobin, platelets today, without worsening, no outward bleeding, heparin initially continued, but developed oral bleeding, anticoagulation had to be stopped. Recheck PTT, CBC requested. CT of the head reviewed. 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 (3) Septic shock: Blood pressure soft, albumin low 3.1. Diuresing, and negative balance. Started on low rate tube feeds last night. Will give a 25 g, 25% dose of albumin. Resolved. Pressor as needed. Keep mean artery pressure 65. (4) Acute hypoxic respiratory failure: As above. Most likely in combination of altered mental status along with pneumonitis as seen on CT. COVID-19 positive. Urine Legionella bacterial antigen negative. Sputum culture, blood culture Acinetobacter, haemophilus influenza. Negative MRSA swab. (5) COVID-19: Decreased Decadron to 3 mg. Completed remdesivir. Complicated by DVT. Continue decannulation as above, at risk of bleeding with thrombocytopenia, CURATOR OF PHOTOGRAPHY AND PRINTS metastatic disease. Monitor for any bleeding. Reassess platelets. Hypoxia secondary to COVID-19 pneumonia: Severe disease. Oxygen supplementation keeping saturation over 88%. DuoNeb every 6 hour, budesonide twice daily Last echocardiogram from March showed an EF of 60 to 65% without regional wall motion bradycardia, mild TR. (6) Elevated troponin: Continue low-dose aspirin. Cannot rule out non-ST elevation IA. Concerns for type II IA. Continues with aspirin. Unable to tolerate anticoagulation. Echocardiogram to monitor EF and rule out regional wall motion abnormality. Appreciate A1c, lipid panel. Continue with home dose of aspirin 81 mg daily. (7) C. difficile colitis: Continue oral vancomycin 125 mg. Colitis seen on CT abdomen/pelvis. (8) Acute metabolic encephalopathy: Overall encephalopathy had improved. He has been alert when off sedation, following directions, but has been getting weaker. Most likely in setting of severe infection/COVID-19 along with high doses of gabapentin and oxycodone. Continue to monitor. Currently sedated. Will plan for daily sedation medication. (9) Port-A-Cath in place: (10) Small cell lung cancer: Qualifiers: Laterality: unspecified laterality Lung location: unspecified part of lung Qualified Code(s): C34.90 - Malignant neoplasm of unspecified part of unspecified bronchus or lung (11) Metastasis to brain: (12) MRSA nasal colonization: (13) Diarrhea: Plan Chronic medication including Xanax as needed, sertraline. gabapentin at a lower dose to avoid withdrawals at 100 mg 3 times daily. CODE STATUS: will be the DPOA. Full code. Attestations 2 Medical Necessity Statement*: Continue admission for assessment and management of respiratory failure with severe COVID-19, superimposed bacterial pneumonia, DVT, oral bleeding. Coding Level of Care Code Critical Care >/= 30 minutes Critical care time (in minutes): 35 The high probability of a clinically significant, sudden or life threatening deterioration, as referenced in this documentation, required my full and direct attention, intervention and personal management. The critical care time shown is in addition to time spent performing any reported separately billable procedures and includes the following: [x] Data and vital sign review and interpretation [x ] Patient assessment, examination and intervention [x] Medication orders and management [x] Patient/Family updates as able [x] Care Coordination and Documentation. Diagnoses Respiratory failure J96.90 DVT (deep venous thrombosis) I82.409 Septic shock A41.9; R65.21 Acute hypoxic respiratory failure J96.01 COVID-19 U07.1 Elevated troponin R79.89 C. difficile colitis A04.72 Acute metabolic encephalopathy G93.41 Port-A-Cath in place Z95.828 Small cell carcinoma of lung, unspecified laterality, unspecified part of lung C34.90 Laterality: unspecified laterality Lung location: unspecified part of lung Metastasis to brain C79.31 MRSA nasal colonization Z22.322 Diarrhea R19.7
--- NOTE | 2023-11-28 13:44 | PC.SOCIAL ---
IMM updated. Updated pt's on IMM. No questions voiced. Provided pt a copy. Initialed, dated, & timed copy in chart.
[2023-11-28 14:48] LABS: Vancomycin Trough 21.5 ug/mL (10-15)
[2023-11-28] MEDS: dexamethasone 4 mg/mL INJ 3 MG IVP (16:26)
[2023-11-28] MEDS: albumin 25 G/100 ML BAG 60 G IV (16:27)
--- NOTE | 2023-11-28 17:09 | P.CONIM_ITS ---
Providers/Reason For Consult 2 Consulting Physician/Specialty*: Dr. Demarco Olvera MD Otolarngology, Head & Neck Surgery Reason for Consult*: Oral Bleeding Requesting Physician: Dr. Slaazar Mcbride MD Attending Physician: Salazar Mcbride Primary Care Provider: Lianet Hannah MD History of Present Illness History of Present Illness Karl Martinez is a 68 year old male with a h/o oral bleeding since his recent admission. The patient's oral bleeding has resolved, but I was consulted to evaluate for possible bleeding sources. Review of Systems 2 General: Reports: 10 or more systems reviewed and unremarkable except in HPI and below Medications/Allergies Home Medications Medication Instructions Recorded Confirmed Last Taken Type aspirin 81 mg tablet,delayed 81 mg PO QAM 01/07/22 11/21/23 11/20/23 History release nitroglycerin 0.4 mg sublingual 0.4 mg sublingual Q5M PRN Chest 02/21/22 11/21/23 Unknown Rx tablet (Nitrostat) Pain #25 tabs ferrous sulfate 325 mg (65 mg 325 mg PO QPM 06/28/22 11/21/23 11/20/23 History iron) tablet cholecalciferol (vitamin D3) 125 125 mcg PO DAILY 08/09/22 11/21/23 11/20/23 History mcg (5,000 unit) capsule mecobalamin (vitamin B12) 500 mcg 500 mcg PO DAILY 08/09/22 11/21/23 11/20/23 History chewable tablet ihodbvbo-sld-[id number] 150 mcg-vit K1 1 tab PO DAILY 08/09/22 11/21/23 11/20/23 History 30 mcg-lycop 300 mcg-lutein tablet (Centrum Minis Men 50 Plus) lorazepam 1 mg tablet 0.5 - 1 mg (0.5 - 1 x 1 mg) PO Q6H 12/16/22 11/21/23 Unknown Rx PRN Severe Nausea #30 tabs acetaminophen 650 mg 650 mg PO Q8H PRN pain or 12/17/22 11/21/23 06/04/23 History tablet,extended release (Pain inflammation Relief (acetaminophen)) metoprolol tartrate 25 mg tablet 12.5 mg (1/2 x 25 mg) PO BID #30 06/16/23 11/21/23 11/20/23 Rx tabs omeprazole 20 mg capsule,delayed 20 mg PO BID 90 days #180 caps 08/14/23 11/21/23 11/20/23 Rx release sertraline 25 mg tablet (Zoloft) 25 mg PO DAILY 90 days #90 tabs 08/15/23 11/21/23 11/20/23 Rx tizanidine 2 mg tablet 2 mg PO Q8H PRN muscle spasticity 08/15/23 11/21/23 Unknown Rx #90 tabs acetaminophen 300 mg-codeine 30 mg 1 tab PO Q8H PRN pain 7 days #21 10/13/23 11/21/23 Unknown Rx tablet tabs oxycodone 15 mg tablet 15 mg PO Q6H PRN pain 30 days #120 11/03/23 11/21/23 11/20/23 Rx tabs ascorbic acid (vitamin C) 500 mg 250 mg PO BID 11/21/23 11/21/23 11/20/23 History tablet (Vitamin C) gabapentin 300 mg capsule 300 mg PO TID 11/21/23 11/21/23 Unknown History Allergies Allergy/AdvReac Type Severity Reaction Status Date / Time Oiojhxm-SAM-FfL Reductase Allergy Unknown Verified 11/20/23 09:17 Inhibitor Current Medications Generic Name Dose Route Start Last Admin Trade Name Freq PRN Reason Stop Dose Admin Albuterol/Ipratropium 3 ml 11/21/23 20:00 11/28/23 13:57 Ipratropium-Albuterol 3 Ml Neb INHALATION 3 ml Q6H.RESP DESTINY Administration Aspirin 81 mg 11/22/23 06:00 11/28/23 06:08 Aspirin 81 Mg Ec Tablet PO 81 mg QAM DESTINY Administration Budesonide 0.5 mg 11/22/23 20:00 11/28/23 08:27 Budesonide 0.5 Mg/2 Ml Neb INHALATION 0.5 mg BID.RESPIRATORY DESTINY Administration Chlorhexidine Gluconate 1 applic 11/22/23 00:15 11/28/23 01:12 Chlorhexidine Gluconate 4% Btl 118 Ml TOPICAL 1 applic Q24H DESTINY Administration Dexamethasone 3 mg 11/27/23 15:00 11/28/23 16:26 Dexamethasone 4 Mg/Ml Inj IVP 3 mg Q24H DESTINY Administration Gabapentin 100 mg 11/21/23 21:15 11/28/23 16:26 Gabapentin 100 Mg Capsule PO 100 mg TID DESTINY Administration Propofol 1,000 mg in 100 mls @ 0 mls/hr 11/21/23 11:15 11/28/23 13:57 Diprivan IV 10 mcg/kg/min .Q0M DESTINY 5.17 mls/hr Titration Protocol Per Protocol Norepinephrine Bitartrate 4 mg in 250 mls @ 0 mls/hr 11/21/23 12:00 11/28/23 03:51 Levophed IV 0 mcg/min .Q0M DESTINY 0 mls/hr Titration Protocol Per Protocol Fentanyl 1,000 mcg in 100 mls @ 0 mls/hr 11/21/23 18:45 11/28/23 13:57 Sublimaze IV 50 mcg/hr .Q0M DESTINY 5 mls/hr Titration Protocol Per Protocol Dexmedetomidine/Sodium Chloride 400 mcg in 100 mls @ 0 mls/hr 11/24/23 19:15 11/26/23 19:00 Precedex IV Infused .Q0M DESTINY Titration Protocol Per Protocol Piperacillin Sod/Tazobactam 50 mls @ 12.5 mls/hr 11/24/23 23:00 11/28/23 16:26 Sod 3.375 gm/ Sodium Chloride IV 12.5 mls/hr Q8H DESTINY Administration Nystatin 1 applic 11/26/23 00:00 11/28/23 10:09 Nystatin Powder 15 Gm Btl TOPICAL 1 applic BID DESTINY Administration Pantoprazole Sodium 40 mg 11/24/23 19:45 11/28/23 07:41 Pantoprazole 40 Mg Sdv IVP 40 mg Q12H DESTINY Administration Sertraline HCl 25 mg 11/22/23 09:00 11/28/23 10:08 Sertraline 50 Mg Tablet PO 25 mg DAILY DESTINY Administration Vancomycin HCl 125 mg 11/26/23 21:00 11/28/23 13:50 Vancomycin 100 Mg/1 Ml Oral Syringe PO 125 mg QID DESTINY Administration Zinc Gluconate 50 mg 11/22/23 09:00 11/28/23 10:08 Zinc Gluconate 50 Mg Tablet PO 50 mg DAILY DESTINY Administration PFSH Acute 2 PFSH: Medical History Falls frequently Frail elderly Small cell lung cancer Pneumonia Port-A-Cath in place Neutropenia Chronic back pain GERD (gastroesophageal reflux disease) Coronary artery disease Hypertension Abdominal aortic aneurysm Congenital umbilical hernia Carpal tunnel syndrome on both sides Past heart attack COPD (chronic obstructive pulmonary disease) Surgical History Hx of umbilical hernia repair History of tonsillectomy and adenoidectomy History of bilateral carpal tunnel release S/P AAA repair using bifurcation graft History of endovascular stent graft for abdominal aortic aneurysm (AAA) History of heart artery stent S/P rotator cuff repair Family History Family/Other Cancer Father CAD (coronary artery disease) Stroke Brother CAD (coronary artery disease) Brother CAD (coronary artery disease) Diabetes Sister CAD (coronary artery disease) Cancer Chronic kidney disease (CKD) Diabetes Sister Cancer Diabetes Mother Stroke Other Hyperlipidemia Hypertension Psychiatric illness Denies family history of Clotting disorder Dementia Suicide Anesthesia complication Bleeding disorder Lung disease Social History Smoking and tobacco/nicotine status: unknown if used tobacco/nicotine Quit status (tobacco/nicotine): has quit using Year quit tobacco: 2021 Former quit date comment: December 2021 Alcohol intake: never Substance/Drug Use: never Vitals/I&O/Wt Last Vital Signs Temp 97.5 F L 11/28/23 06:19 Pulse 83 11/28/23 14:00 Resp 14 11/28/23 16:58 BP 79/61 11/28/23 14:00 Pulse Ox 97 11/28/23 16:58 O2 Del Method Mechanical Ventilation 11/28/23 14:00 O2 Flow Rate 15 11/24/23 19:10 FiO2 35 11/28/23 16:58 11/28/23 11/28/23 11/28/23 06:59 14:59 22:59 Intake Total 550.199 / 1217.036 89.362 / 89.362 Output Total 500 / 1000 2200 / 2200 Balance 50.199 / 217.036 -2110.638 / -2110.638 Weight last 48 hrs Weight 87.5 kg Weight 86.319 kg Weight 86.001 kg Weight 86.319 kg Physical Exam 2 Const: GENERAL APPEARANCE: patient mechanically ventilated and other (The patient is sedated.) HENMT: COMMON NORMALS: normocephalic, atraumatic and Normal external nose present HEAD & SCALP: normocephalic and atraumatic FACE & SINUS: normal facial exam NOSE: Normal external nose present MOUTH: tongue normal and other (Exam difficult, but petechiae noted) Neck/C-Spine: COMMON NORMALS: no lymphadenopathy Urinary Catheter Management: Strange: Cath Placed During This Visit: yes Reason for Continuing Indwelling Catheter: Accurate Measurement of Urinary Output in Critically Ill Patients Urinary Catheter Date of Insertion: 11/21/23 Urinary Catheter Time of Insertion: 11:40 Data 11/28/23 03:55 11/28/23 03:55 A&P Assessment and plan (1) Mouth bleeding: Impression: Oral bleeding - now resolved with petechiae noted in the mouth; no obvious bleeding in the nose or nasopharynx; hypopharynx/larynx difficult to assess in the patient's current state Plan: - I recommend observation - Please contact me for any recurrent bleeding Consult Attestations 2 Medical Necessity Statement: I was consulted to evaluate the patient for possible sources of oral bleeding Procedures Procedure Narrative Flexible Fiberoptic Nasopharyngolaryngoscopy: Nasal cavities normal bilaterally with no bleeding or blood clot/old blood noted; nasopharynx appears normal, but exam is difficult secondary to obstructing copious secretions present in the oropharynx; oral cavity endoscopic exam reveals several, scattered petechiae throughout the oral cavity. Coding Level of Care Code Acute Code for Chg Fwd Diagnoses Mouth bleeding K13.79
[2023-11-28] MEDS: vancomycin 1,250 MG/250 ML PIGGYBACK 200 MG IV (19:36)
[2023-11-28] MEDS: fentaNYL 1,000 MCG/100 ML BAG 12.5 MCG IV (23:35)
[2023-11-29] VITALS (89 sets, daily range): BP systolic 78–139; BP diastolic 53–78; PULSE 63–98; RESP 14–30; TEMP 36.4–37.3; O2SAT 91–96; BMI 29.6
[2023-11-29] MEDS: ipratropium-albuterol 3 mL Neb INHALATION ×4 (02:08→20:18)
[2023-11-29 03:54] LABS: Alanine Aminotransferase 27 U/L (0-41); Albumin Level 3.4 g/dL (3.5-5.2); Alkaline Phosphatase 69 U/L (40-130); Anion Gap 13.6 (5-19); Aspartate Amino Transferase 18 U/L (0-40); Blood Urea Nitrogen 23 mg/dL (8-23); Calcium 8.7 mg/dL (8.5-10.5); Carbon Dioxide 29 mmol/L (22-29); Chloride 101 mmol/L (98-107); Creatinine Clr Calc Pharmacy 92.0288; Globulin 1.9 g/dL (1.3-4.6); Glomerular Filtration Rate 213.3 mL/min (90-130); Glucose 146 mg/dL (65-115); Osmolality Calculated 296 mOsm/kg (285-295); Potassium 3.6 mmol/L (3.5-5.1); Sodium 140 mmol/L (136-145); Total Bilirubin 0.8 mg/dL (0.15-1.2); Total Protein 5.3 g/dL (6.6-8.7)
[2023-11-29 03:57] LABS: Basophils % 0.1 %; Eosinophils % 0.3 %; Hematocrit 27.9 % (37-53); Lymphocytes % 6.8 %; Mean Corpuscular HGB Conc 32.6 g/dL (30-55); Mean Corpuscular Hemoglobin 33.1 pg (27-33); Mean Corpuscular Volume 101.5 fl (82-101); Mean Platelet Volume 12.7 fL (7.4-10.4); Monocytes # 0.1 10^3/uL (0.2-0.9); Monocytes % 1.5 %; Neutrophils # 5.96 10^3/uL (1.8-7.7); Neutrophils % 86.5 %; Nucleated Red Blood Cells % 0 %; Platelet Count 81 10^3/cmm (157-399); Red Blood Count 2.75 10^6/uL (3.85-5.65); Red Cell Distribution Width 16.8 % (12.1-15.1); White Blood Count 6.89 10^3/uL (3.29-11.43)
[2023-11-29 04:24] LABS: Add RBC Morph Yes
[2023-11-29 04:25] LABS: Hypochromasia 2+; Lymphocytes # 0.5 10^3/uL (0.8-4.8); RBC Morph Comp No
[2023-11-29 04:26] LABS: Anisocytosis 1+; Tear Drop Cells Trace
[2023-11-29] MEDS: propofol 1,000 MG/100 ML INJ 7.76 MG IV (05:40)
[2023-11-29] MEDS: aspirin 81 mg EC Tablet PO (05:40)
[2023-11-29] MEDS: fentaNYL 1,000 MCG/100 ML BAG 12.5 MCG IV (06:24)
[2023-11-29] MEDS: pantoprazole 40 mg SDV IVP ×2 (07:43→19:52)
[2023-11-29] MEDS: piperacillin-tazobactam 3.375 GM in sodium chloride 0.9% (plus) 50 ML IV ×3 (07:43→22:25)
[2023-11-29] MEDS: budesonide 0.5 mg/2 mL Neb INHALATION ×2 (08:02→20:18)
[2023-11-29] MEDS: vancomycin 100 mg/1 mL Oral Syringe 125 MG PO ×2 (09:20→14:00)
[2023-11-29] MEDS: gabapentin 100 mg Capsule PO ×2 (09:20→14:00)
[2023-11-29] MEDS: nystatin powder 15 gm Btl 1 APPLIC TOPICAL ×2 (09:20→18:06)
[2023-11-29] MEDS: zinc gluconate 50 mg Tablet PO (09:20)
[2023-11-29] MEDS: sertraline 50 mg Tablet 25 MG PO (09:20)
--- NOTE | 2023-11-29 11:51 | XRR_ITS ---
PROCEDURE INFORMATION: Exam: XR Chest Exam date and time: 11/29/2023 2:26 PM Age: 68 years old Clinical indication: Shortness of breath; Prior surgery; Surgery date: 6+ months; Surgery type: Cardiac stent; Lt port placement; Patient HX: Vent weaning; Pleural effusions; Congestion; [place] TECHNIQUE: Imaging protocol: Radiologic exam of the chest. Views: 1 view. COMPARISON: CT chest con [id number] 11/25/2023 6:13 PM FINDINGS: Tubes, catheters and devices: Endotracheal tube terminates 2.7 cm above the yrn. Enteric tube seen entering into the stomach and outside the field of view. Right PICC line terminates in the cavoatrial junction. Left chest port terminates in the proximal SVC. Lungs: Bibasilar consolidations. Pleural spaces: No apparent pleural effusion. No pneumothorax. Heart/Mediastinum: Unremarkable. No cardiomegaly. Bones/joints: Unremarkable. XR/XR chest 1V portable [id number] IMPRESSION: 1. Proper positioning of support apparatus. 2. Redemonstrated bibasilar consolidations, some interval improvement from prior studies.
[2023-11-29] MEDS: albumin 25 G/100 ML BAG 60 G IV (12:10)
[2023-11-29] MEDS: morphine 4 mg/mL SDV 1 mL 2 MG IVP (12:10)
--- NOTE | 2023-11-29 12:21 | PC.NURSE ---
Paused Tube feeding in preparation for extubation.
[2023-11-29] MEDS: dexamethasone 4 mg/mL INJ 3 MG IVP (14:00)
[2023-11-29] MEDS: vancomycin 1,250 MG/250 ML PIGGYBACK 200 MG IV (14:00)
[2023-11-29] MEDS: LORazepam 2 mg/mL INJ 1 mL 0.5 MG IVP (14:03)
--- NOTE | 2023-11-29 16:09 | PC.NURSE ---
Patient extubated per Dr. Mcbride order, 4L NC, 2RT, myself at bedside, uneventful.
--- NOTE | 2023-11-29 16:44 | PC.PT ---
TRAIN CONTROL ELECTRONIC TECHNICIAN attempted visit. Patient was preparing for chest xray to determine intubation status. Nursing to call after 3 pm with report of intubation status. Visit held waiting on nursing per TRAIN CONTROL ELECTRONIC TECHNICIAN.
[2023-11-29] MEDS: norepinephrine 4 MG/250 ML BAG 7.5 MG IV (18:11)
--- NOTE | 2023-11-29 19:07 | PC.NURSE ---
Addendum entered by Jennifer Hester RN 11/29/23 19:18: Witnessed waste of fentanyl and propofol Original Note: Waste fentanyl 52.125mls and Propofol 84.799mls with SILAS Rodriguez.
--- NOTE | 2023-11-29 20:56 | P.PN_ITS ---
Subjective 2 Subjective: He is waking up. Did get somewhat anxious today initially, but with improvement with small dose of Ativan. Denies pain. Vitals/I&O/Wt Last Vital Signs Temp 99.1 F 11/29/23 19:45 Pulse 78 11/29/23 20:15 Resp 24 H 11/29/23 20:00 BP 115/70 11/29/23 20:15 Pulse Ox 93 11/29/23 20:00 O2 Del Method Nasal Cannula 11/29/23 20:00 O2 Flow Rate 4 11/29/23 18:00 FiO2 4 11/29/23 20:00 11/29/23 11/29/23 11/29/23 06:59 14:59 22:59 Intake Total 1015.166 / 1611.126 226.317 / 226.317 384.500 / 610.817 Output Total 1800 / 4000 850 / 850 Balance -784.834 / -2388.874 226.317 / 226.317 -465.500 / -239.183 Weight last 48 hrs Weight 85.729 kg Weight 86.5 kg Weight 87.5 kg Weight 86.319 kg Physical Exam 2 Narrative: Accompanied by his . Const: COMMON NORMALS: alert GENERAL APPEARANCE: cooperative and patient mechanically ventilated ORIENTATION/CONSCIOUSNESS: Yes awake OTHER: No oral blood today. HENMT: COMMON NORMALS: oropharynx normal Neck/C-Spine: COMMON NORMALS: no JVD Resp: COMMON NORMALS: normal respiratory effort and clear to auscultation bilaterally AUSCULTATION: clear to auscultation bilaterally, wheezes right lower and diminished lung sounds OTHER: Coarse lung sounds. Cardio: COMMON NORMALS: no JVD, regular rhythm, S1 normal heart sound present, S2 normal heart sound present and No murmurs present (Cardio) RHYTHM: regular rhythm HEART SOUNDS: S1 normal heart sound present and S2 normal heart sound present GI: COMMON NORMALS: Normal to inspection, nondistended, normoactive bowel sounds present, Soft to palpation and non-tender PALPATION: Yes Soft to palpation Extremity: COMMON NORMALS: no joint enlargement and no pedal edema OTHER: Edema of hands with improvement, L>R Neuro: COMMON NORMALS: moves all extremities SENSORIUM/ORIENTATION: Yes alert Skin: COMMON NORMALS: no rashes or lesions noted GENERAL SKIN EXAM: no rashes or lesions noted Urinary Catheter Management: Strange: Cath Placed During This Visit: yes Reason for Continuing Indwelling Catheter: Accurate Measurement of Urinary Output in Critically Ill Patients Urinary Catheter Date of Insertion: 11/21/23 Urinary Catheter Time of Insertion: 11:40 Data 11/29/23 02:56 11/29/23 02:56 A&P Assessment and plan (1) Respiratory failure: Reviewed vitals,Ventilator settings, intake and output, and negative balance, on 35% FiO2, discussed with respite therapist. Reviewed ENT note. CBC, CMP, blood culture, without growth. He is making up, following directions. Became mildly anxious but improved well with small dose of Ativan. Tube feeds held. Had a breathing trial which he tolerated well, RSBI 70-80. Extubated to nasal cannula after discussion with risks with him and his , risk of recurrence of respiratory failure, failure of extubation, need for intubation, CPAP and reintubation equipment kept nearby. We discussed risk of rebleeding, although he has not had any further oral blood on suctioning. So far he is doing well, but does have some retained secretions. Requesting flutter valve, incentive spirometer. N.p.o. for now. Speech therapy reassessment and ideally should get modified barium swallow prior to resuming oral intake. Additionally pending authorization for LTAC. Noted in negative balance with additional Lasix. Blood pressure soft 79/61. Will give a dose of albumin, noted albumin 3.1. Monitor LY. Reassess volume status. With deferred extubation for today starting him on low rate tube feeds as well, monitor for any regurgitation. Cut down Decadron to 3 mg Continue empiric antibiotic coverage with Zosyn, vancomycin. Completed remdesivir course. Consider modified barium swallow prior to resuming oral intake after extubation. Consider CPAP for sleep apnea but as discussed with oral bleeding this may be associated with to greater risk of aspiration. (2) DVT (deep venous thrombosis): Status post IVC filter today per discussion with custodial services manager. Platelets improving. PTT normalized. Reviewed hemoglobin, platelets today, without worsening, no outward bleeding, heparin initially continued, but developed oral bleeding, anticoagulation had to be stopped. Recheck PTT, CBC requested. CT of the head reviewed. 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 (3) Septic shock: Has diuresed. In negative balance. Albumin low, repeat albumin dose requested. On minimal pressor. Continue, maintain MAP 65 or above. Wean off as tolerating. Pressor as needed. Keep mean artery pressure 65. (4) Acute hypoxic respiratory failure: As above. Most likely in combination of altered mental status along with pneumonitis as seen on CT. COVID-19 positive. Urine Legionella bacterial antigen negative. Sputum culture, blood culture Acinetobacter, haemophilus influenza. Negative MRSA swab. (5) COVID-19: Decreased Decadron to 3 mg. Completed remdesivir. Complicated by DVT. Continue decannulation as above, at risk of bleeding with thrombocytopenia, [employer] metastatic disease. Monitor for any bleeding. Reassess platelets. Hypoxia secondary to COVID-19 pneumonia: Severe disease. Oxygen supplementation keeping saturation over 88%. DuoNeb every 6 hour, budesonide twice daily Last echocardiogram from March showed an EF of 60 to 65% without regional wall motion bradycardia, mild TR. (6) Elevated troponin: Continue low-dose aspirin. Cannot rule out non-ST elevation NE. Concerns for type II NE. Continues with aspirin. Unable to tolerate anticoagulation. Echocardiogram to monitor EF and rule out regional wall motion abnormality. Appreciate A1c, lipid panel. Continue with home dose of aspirin 81 mg daily. (7) C. difficile colitis: Continue oral vancomycin 125 mg. Colitis seen on CT abdomen/pelvis. (8) Acute metabolic encephalopathy: Overall encephalopathy had improved. He has been alert when off sedation, following directions, but has been getting weaker. Most likely in setting of severe infection/COVID-19 along with high doses of gabapentin and oxycodone. Continue to monitor. Currently sedated. Will plan for daily sedation medication. (9) Port-A-Cath in place: (10) Small cell lung cancer: Qualifiers: Laterality: unspecified laterality Lung location: unspecified part of lung Qualified Code(s): C34.90 - Malignant neoplasm of unspecified part of unspecified bronchus or lung (11) Metastasis to brain: (12) MRSA nasal colonization: (13) Diarrhea: Plan Chronic medication including Xanax as needed, sertraline. gabapentin at a lower dose to avoid withdrawals at 100 mg 3 times daily. CODE STATUS: will be the DPOA. Full code. Attestations 2 Medical Necessity Statement*: Continue admission for assessment and management of respiratory failure. Coding Level of Care Code Critical Care >/= 30 minutes Critical care time (in minutes): 50 The high probability of a clinically significant, sudden or life threatening deterioration, as referenced in this documentation, required my full and direct attention, intervention and personal management. The critical care time shown is in addition to time spent performing any reported separately billable procedures and includes the following: [x] Data and vital sign review and interpretation [x ] Patient assessment, examination and intervention [x] Medication orders and management [x] Patient/Family updates as able [x] Care Coordination and Documentation. Diagnoses Respiratory failure J96.90 DVT (deep venous thrombosis) I82.409 Septic shock A41.9; R65.21 Acute hypoxic respiratory failure J96.01 COVID-19 U07.1 Elevated troponin R79.89 C. difficile colitis A04.72 Acute metabolic encephalopathy G93.41 Port-A-Cath in place Z95.828 Small cell carcinoma of lung, unspecified laterality, unspecified part of lung C34.90 Laterality: unspecified laterality Lung location: unspecified part of lung Metastasis to brain C79.31 MRSA nasal colonization Z22.322 Diarrhea R19.7
[2023-11-30] VITALS (103 sets, daily range): BP systolic 82–154; BP diastolic 46–92; PULSE 71–91; RESP 7–31; TEMP 36.7–37.1; O2SAT 88–100; BMI 29.3
[2023-11-30] MEDS: ipratropium-albuterol 3 mL Neb INHALATION ×4 (02:20→19:57)
[2023-11-30 05:39] LABS: Basophils % 0.1 %; Eosinophils % 0.4 %; Hematocrit 27.4 % (37-53); Lymphocytes # 0.5 10^3/uL (0.8-4.8); Mean Corpuscular HGB Conc 32.5 g/dL (30-55); Mean Corpuscular Hemoglobin 33.1 pg (27-33); Mean Corpuscular Volume 101.9 fl (82-101); Mean Platelet Volume 12.2 fL (7.4-10.4); Monocytes # 0.1 10^3/uL (0.2-0.9); Monocytes % 1.8 %; Neutrophils % 88.6 %; Nucleated Red Blood Cells % 0 %; Platelet Count 83 10^3/cmm (157-399); Red Blood Count 2.69 10^6/uL (3.85-5.65); Red Cell Distribution Width 16.4 % (12.1-15.1); White Blood Count 7.12 10^3/uL (3.29-11.43)
[2023-11-30 05:59] LABS: Alanine Aminotransferase 25 U/L (0-41); Albumin Level 3.5 g/dL (3.5-5.2); Alkaline Phosphatase 70 U/L (40-130); Anion Gap 12.5 (5-19); Aspartate Amino Transferase 21 U/L (0-40); Blood Urea Nitrogen 17 mg/dL (8-23); Carbon Dioxide 29 mmol/L (22-29); Chloride 103 mmol/L (98-107); Creatinine Clr Calc Pharmacy 91.1556; Glomerular Filtration Rate 297.3 mL/min (90-130); Glucose 65 mg/dL (65-115); Osmolality Calculated 292 mOsm/kg (285-295); Potassium 3.5 mmol/L (3.5-5.1); Sodium 141 mmol/L (136-145); Total Protein 5.5 g/dL (6.6-8.7)
[2023-11-30] MEDS: piperacillin-tazobactam 3.375 GM in sodium chloride 0.9% (plus) 50 ML IV ×3 (06:04→23:59)
[2023-11-30] MEDS: vancomycin 1,250 MG/250 ML PIGGYBACK 200 MG IV (08:49)
[2023-11-30] MEDS: pantoprazole 40 mg SDV IVP ×2 (08:49→19:51)
[2023-11-30] MEDS: budesonide 0.5 mg/2 mL Neb INHALATION ×2 (08:50→19:57)
[2023-11-30] MEDS: nystatin powder 15 gm Btl 1 APPLIC TOPICAL ×2 (08:50→17:05)
[2023-11-30 10:13] LABS: Glucose Point of Care 71 mg/dL (70-110)
--- NOTE | 2023-11-30 10:29 | PC.NURSE ---
While applying nystatin powder to groin area of patient, patients states, They're applying medicine to the sores you have from sitting so long in bed, you've got sores on your groin from sitting. and patient educated on rash and pressure injury prevention.
--- NOTE | 2023-11-30 11:14 | PC.NURSE ---
Dr. Mcbride called for BG 66, new order received for D10 at 20cc hr. See MAR.
[2023-11-30] MEDS: dextrose 10% 1,000 ML 20 ML IV (11:19)
[2023-11-30 12:36] LABS: Glucose Point of Care 66 mg/dL (70-110)
[2023-11-30 12:36] LABS: Glucose Point of Care 82 mg/dL (70-110)
[2023-11-30] MEDS: morphine 4 mg/mL SDV 1 mL 2 MG IVP (12:48)
--- NOTE | 2023-11-30 15:22 | P.PN_ITS ---
Subjective 2 Subjective: Having some pain in his chest after zoster. Coughing a little bit with encouragement from his . States he is going to use flutter valve and incentive spirometer. Vitals/I&O/Wt Last Vital Signs Temp 98.7 F 11/30/23 12:15 Pulse 80 11/30/23 14:00 Resp 22 H 11/30/23 14:00 BP 99/68 11/30/23 14:00 Pulse Ox 100 11/30/23 14:00 O2 Del Method Nasal Cannula 11/30/23 13:58 O2 Flow Rate 3 11/30/23 13:58 FiO2 4 11/30/23 02:21 11/30/23 11/30/23 11/30/23 06:59 14:59 22:59 Intake Total 84.125 / 694.942 300 / 300 Output Total 850 / 1700 Balance -765.875 / -1005.058 300 / 300 Weight last 48 hrs Weight 84.964 kg Weight 85 kg Weight 85.729 kg Weight 86.5 kg Physical Exam 2 Narrative: Accompanied by his . Const: COMMON NORMALS: alert GENERAL APPEARANCE: cooperative and patient mechanically ventilated ORIENTATION/CONSCIOUSNESS: Yes awake OTHER: No oral blood today. HENMT: COMMON NORMALS: oropharynx normal Neck/C-Spine: COMMON NORMALS: no JVD Resp: COMMON NORMALS: normal respiratory effort and clear to auscultation bilaterally AUSCULTATION: clear to auscultation bilaterally, wheezes right lower and diminished lung sounds OTHER: Coarse lung sounds. Cardio: COMMON NORMALS: no JVD, regular rhythm, S1 normal heart sound present, S2 normal heart sound present and No murmurs present (Cardio) RHYTHM: regular rhythm HEART SOUNDS: S1 normal heart sound present and S2 normal heart sound present GI: COMMON NORMALS: Normal to inspection, nondistended, normoactive bowel sounds present, Soft to palpation and non-tender PALPATION: Yes Soft to palpation Extremity: COMMON NORMALS: no joint enlargement and no pedal edema OTHER: Edema of hands with improvement, L>R Neuro: COMMON NORMALS: moves all extremities SENSORIUM/ORIENTATION: Yes alert Skin: COMMON NORMALS: no rashes or lesions noted GENERAL SKIN EXAM: no rashes or lesions noted Urinary Catheter Management: Strange: Cath Placed During This Visit: yes Reason for Continuing Indwelling Catheter: Accurate Measurement of Urinary Output in Critically Ill Patients Urinary Catheter Date of Insertion: 11/21/23 Urinary Catheter Time of Insertion: 11:40 Data 11/30/23 05:27 11/30/23 05:27 A&P Assessment and plan (1) Respiratory failure: Reviewed vitals, CBC, CMP. On 3 L nasal cannula. Weak cough, but with encouragement is coughing a bit more this afternoon. Bringing up some phlegm although he is swallowing it. Reviewed chest x-ray, bibasilar atelectasis/consolidation. Encouraged flutter valve, incentive spirometer. Discussed with respiratory therapist. Continue aspiration precautions. Speech therapy evaluation tomorrow. Consideration of modified barium swallow. He reportedly generally has a weak cough. Weak with weak cough, at risk of aspiration, risk of respiratory failure. Did not do well on bedside nursing swallow eval. Keep NPO. Will request for a lower rate TPN. Monitor for risk of fluid overload. Additionally pending authorization for LTAC. Monitor LY. Reassess volume status. Continue preantibiotic coverage for now with vancomycin and Zosyn. Monitor renal function for risk of TON with antibiotic combination. With deferred extubation for today starting him on low rate tube feeds as well, monitor for any regurgitation. Cut down Decadron to 3 mg Completed remdesivir course. Consider modified barium swallow prior to resuming oral intake after extubation. Consider CPAP for sleep apnea but as discussed with oral bleeding this may be associated with to greater risk of aspiration. (2) Hypoglycemia: Blood glucose in the 60s. Did not pass nursing swallow eval, continues NPO. Requested D10 20 mL/h. Reassess glucose. Monitor for risk of hypo or hyperglycemia, risk of fluid overload. (3) Acute hypoxic respiratory failure: As above. Most likely in combination of altered mental status along with pneumonitis as seen on CT. COVID-19 positive. Urine Legionella bacterial antigen negative. Sputum culture, blood culture Acinetobacter, haemophilus influenza. Negative MRSA swab. (4) DVT (deep venous thrombosis): Status post IVC filter. Platelets improving. PTT normalized. Reviewed hemoglobin, platelets today, without worsening, no outward bleeding, heparin initially continued, but developed oral bleeding, anticoagulation had to be stopped. Recheck PTT, CBC requested. CT of the head reviewed. 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 (5) Septic shock: Has diuresed. In negative balance. Albumin low, repeat albumin dose requested. On minimal pressor. Continue, maintain MAP 65 or above. Wean off as tolerating. Pressor as needed. Keep mean artery pressure 65. (6) COVID-19: Decreased Decadron to 3 mg. Completed remdesivir. Complicated by DVT. Continue decannulation as above, at risk of bleeding with thrombocytopenia, [employer]IST metastatic disease. Monitor for any bleeding. Reassess platelets. Hypoxia secondary to COVID-19 pneumonia: Severe disease. Oxygen supplementation keeping saturation over 88%. DuoNeb every 6 hour, budesonide twice daily Last echocardiogram from March showed an EF of 60 to 65% without regional wall motion bradycardia, mild TR. (7) Elevated troponin: Continue low-dose aspirin. Cannot rule out non-ST elevation RI. Concerns for type II RI. Continues with aspirin. Unable to tolerate anticoagulation. Echocardiogram to monitor EF and rule out regional wall motion abnormality. Appreciate A1c, lipid panel. Continue with home dose of aspirin 81 mg daily. (8) C. difficile colitis: Continue oral vancomycin 125 mg. Colitis seen on CT abdomen/pelvis. (9) Acute metabolic encephalopathy: Overall encephalopathy had improved. He has been alert when off sedation, following directions, but has been getting weaker. Most likely in setting of severe infection/COVID-19 along with high doses of gabapentin and oxycodone. Continue to monitor. Currently sedated. Will plan for daily sedation medication. (10) Port-A-Cath in place: (11) Small cell lung cancer: Qualifiers: Laterality: unspecified laterality Lung location: unspecified part of lung Qualified Code(s): C34.90 - Malignant neoplasm of unspecified part of unspecified bronchus or lung (12) Metastasis to brain: (13) MRSA nasal colonization: (14) Diarrhea: Plan Chronic medication including Xanax as needed, sertraline. gabapentin at a lower dose to avoid withdrawals at 100 mg 3 times daily. CODE STATUS: will be the DPOA. Full code. Attestations 2 Medical Necessity Statement*: Continue admission for assessment and management of respiratory failure, hypoglycemia, n.p.o. Diagnoses Respiratory failure J96.90 Hypoglycemia E16.2 Acute hypoxic respiratory failure J96.01 DVT (deep venous thrombosis) I82.409 Septic shock A41.9; R65.21 COVID-19 U07.1 Elevated troponin R79.89 C. difficile colitis A04.72 Acute metabolic encephalopathy G93.41 Port-A-Cath in place Z95.828 Small cell carcinoma of lung, unspecified laterality, unspecified part of lung C34.90 Laterality: unspecified laterality Lung location: unspecified part of lung Metastasis to brain C79.31 MRSA nasal colonization Z22.322 Diarrhea R19.7
[2023-11-30] MEDS: dexamethasone 4 mg/mL INJ 3 MG IVP (15:56)
[2023-11-30] MEDS: gabapentin 100 mg Capsule PO ×2 (15:57→20:33)
[2023-11-30] MEDS: AA DEX IV (17:05)
[2023-11-30] MEDS: LYTES IV (17:05)
[2023-11-30] MEDS: vancomycin 100 mg/1 mL Oral Syringe 125 MG PO ×2 (17:10→20:33)
[2023-11-30 18:20] LABS: ABG PCO2 41.3 mmHg (35-45); ABG PH Result 7.46 (7.35-7.45); Alveolar-Arterial Oxygen Gradi 22.1 mmHg (5-10); Arterial Blood Gas Hematocrit 29.7 % (42-52); Base Excess ABG 5.2 mmol/L (-2.0-2.0); Blood Gas Allen Test Pos; Blood Gas Operator Identificat MONRO; Blood Gas Sample Site Radial, right; Blood Gas Sample Type Arterial; Carboxyhemoglobin 1.4 %THgb (0.4-20.1); HCO3 ABG 29.5 mmol/L (22-26); HGB O2 Sat 90.9 % (95-100); Ionized Calcium Level - ABG 1.3 mmol/L (1.1-1.4); Methemoglobin 1.1 % (0.4-1.5); Oxygen Device NC; Oxygen Saturation ABG 93.3; PO2 ABG 63.9 mmHg (80.0-100.0); PO2 FiO2 Ratio Arterial Blood 159; Potassium Level - ABG 3.5 mmol/L (3.5-5.0); Total Hemoglobin 9.7 g/dL (14-18)
[2023-11-30] MEDS: norepinephrine 4 MG/250 ML BAG 7.5 MG IV (18:51)
--- NOTE | 2023-11-30 19:02 | XRR_ITS ---
PROCEDURE INFORMATION: Exam: XR Chest Exam date and time: 11/30/2023 7:16 PM Age: 68 years old Clinical indication: Device placement; Ett placement (vent status); Additional info: Intubation ng tube TECHNIQUE: Imaging protocol: Radiologic exam of the chest. Views: 1 view. COMPARISON: CR (CHEST, ) 11/29/2023 2:26 PM FINDINGS: Tubes, catheters and devices: Endotracheal tube tip is 2.9 cm above the yrn. Enteric tube courses below the diaphragm and off the field of view with the side port below the GE junction. Right arm PICC is in stable position. Lungs: Multifocal airspace disease throughout the lungs is similar to prior. Pleural spaces: Unremarkable. No pleural effusion. No pneumothorax. Heart/Mediastinum: Unremarkable. No cardiomegaly. Bones/joints: Unremarkable. XR/XR chest 1V portable [id number] IMPRESSION: 1. Endotracheal tube tip 2.9 cm above the yrn. Remaining support hardware as above. 2. Ongoing multifocal airspace disease.
[2023-11-30] MEDS: succinylcholine 20 mg/mL SDV 10mL 100 MG IVP (19:04)
--- NOTE | 2023-11-30 19:04 | PM.ACPR ---
Acute Procedures Intubation: Time out performed: Yes Sedative: etomidate Mg given: 10 Paralytic: succinylcholine Mg given: 100 Laryngoscope: [place] ET tube size: 8 Tube secured depth (cm): 25 Tube secured location: lips Tube placement confirmation: visualized tube passing through cords, equal breath sounds bilaterally, no breath sounds over epigastrium, confirmation by capnometry and color change noted Patient tolerated procedure: well and no complications Additional comments: CXR requested for confirmation of positioning.
[2023-11-30] MEDS: etomidate 2 mg/mL INJ SDV 10 mL 20 MG IVP (19:05)
--- NOTE | 2023-11-30 19:07 | CTR_ITS ---
PROCEDURE INFORMATION: Exam: CT Neck With Contrast Exam date and time: 11/30/2023 11:14 PM Age: 68 years old Clinical indication: Other: Persistent epstaxis; Prior surgery; Surgery date: 6+ months; Surgery type: Chest port; Patient HX: Persistent epistaxis with drainage causing loss of airway requiring intubation. History of lung cancer. ; Additional info: Pharyngeal vs nasopharyngeal bleeding TECHNIQUE: Imaging protocol: Computed tomography of the neck with contrast. Radiation optimization: All CT scans at this facility use at least one of these dose optimization techniques: automated exposure control; mA and/or kV adjustment per patient size (includes targeted exams where dose is matched to clinical indication); or iterative reconstruction. Contrast material: OMNI 350; Contrast volume: 100 ml; Contrast route: INTRAVENOUS (IV); COMPARISON: PT PET skull to thigh SUBS [id number] 07/22/2023 4:15 PM RADIATION DOSE METRICS: Total DLP (mGy-cm): 734.21 FINDINGS: Tubes, catheters and devices: Endotracheal and orogastric tubes are partially visualized. The distal aspect of the tubes are not included in the field of view. Right arm PICC is also partially imaged. Paranasal sinuses: Layering fluid in bilateral maxillary sinuses, [id number]. Patchy opacification of the ethmoid air cells. Small layering fluid in the sphenoid sinuses. Salivary glands: Normal. Glands are normal in size. Pharynx: Complex fluid is seen within the nasal cavity, the nasopharynx, the oropharynx, and extending into the larynx. There is an enhancing vessel in the posterior nasopharynx adjacent to the adenoids. Prevertebral and retropharyngeal spaces: Unremarkable. Larynx: See Pharynx finding. Thyroid: Normal. No enlarged or calcified nodules. Trachea: Visualized trachea is unremarkable. Lungs: Unremarkable as visualized. Pleural spaces: Partially imaged fibrotic changes in the right lung apex as well as right pleural thickening/fluid. Visualized findings are similar to prior. Lymph nodes: Unremarkable. No lymphadenopathy. Vasculature: Dominant right vertebral artery. Bones/joints: Unremarkable. No acute fracture. Soft tissues: Unremarkable. No significant soft tissue swelling. CT/CT neck w con* [id number] IMPRESSION: Complex fluid extending from the nasal cavity through the nasopharynx and oropharynx into the larynx, most compatible with hematoma. An enhancing vessel is seen along the posterior nasopharynx adjacent to the adenoids. Limited assessment of this vessel given the single phase of contrast. However, bleeding from this vessel cannot be excluded.
--- NOTE | 2023-11-30 19:09 | PC.NURSE ---
At approximately 1810 patient oxygen saturation began to decrease, audible gurgling noted upon assessing patient, patient instructed to cough, patient coughed approximately 20cm clot, RT placed patient on oxy mask. Dr. Mcbride notified via telephone. Patient coughed approximately 40cm blood clot. Audible gurgling still heard. Rae Starr to bedside to assess patient. Patient expressed consent to be intubated, Made patient aware of risks. Dr. Mcbride spoke to patients over the phone and she gave consent and will be returning to bedside.
--- NOTE | 2023-11-30 19:17 | PC.NURSE ---
Addendum entered by MINOR Celestin 11/30/23 19:40: Dr Mcbride verbal order for 10 mg etomidate during intubation Original Note: Intubation: Time out,1858 20 mg Etomidate, 0 100mg succinycholine, [address] 1900 25 @ lip, pending Xray. OG placed. See MAR for sedation. Dr. Mcbride, 2RT, 3RN, Dr. Estevez at bedside for intubation.
[2023-11-30] MEDS: propofol 1,000 MG/100 ML INJ 2.59 MG IV (19:22)
[2023-11-30] MEDS: fentaNYL 1,000 MCG/100 ML BAG 2.5 MCG IV (19:22)
[2023-11-30 19:47] LABS: ABG PCO2 36.1 mmHg (35-45); ABG PH Result 7.51 (7.35-7.45); Base Excess ABG 5.5 mmol/L (-2.0-2.0); Blood Gas Allen Test Pos; Blood Gas Sample Type Arterial; HCO3 ABG 28.8 mmol/L (22-26)
[2023-11-30 19:49] LABS: Blood Gas Operator Identificat ED; Blood Gas Sample Site Radial, right; Oxygen Device VENT; PO2 FiO2 Ratio Arterial Blood 326
[2023-11-30 21:37] LABS: INR 1.02 (0.8-1.2)
[2023-11-30] MEDS: iohexol 350 mg/mL 500 mL Btl (per mL) IV (23:23)
--- NOTE | 2023-11-30 23:43 | PC.NURSE ---
Transported to CT vial bed with RT Hanh at bedside bagging patient. accompanied patient to CT. Returned to room, v/s remain stable.
[2023-12-01] VITALS (95 sets, daily range): BP systolic 74–166; BP diastolic 59–93; PULSE 61–88; RESP 14–24; TEMP 36.4–37; O2SAT 90–99; BMI 30.5
[2023-12-01] MEDS: ipratropium-albuterol 3 mL Neb INHALATION ×4 (01:37→20:06)
[2023-12-01] MEDS: chlorhexidine gluconate 4% Btl 118 mL 1 APPLIC TOPICAL (02:13)
[2023-12-01] MEDS: vancomycin 1,250 MG/250 ML PIGGYBACK 200 MG IV ×2 (02:21→21:46)
[2023-12-01] MEDS: propofol 1,000 MG/100 ML INJ 12.93 MG IV ×2 (03:30→10:09)
[2023-12-01 03:49] LABS: Basophils % 0.3 %; Eosinophils % 0.3 %; Lymphocytes # 0.6 10^3/uL (0.8-4.8); Lymphocytes % 8.1 %; Mean Corpuscular HGB Conc 31.9 g/dL (30-55); Mean Corpuscular Hemoglobin 33.1 pg (27-33); Mean Corpuscular Volume 103.6 fl (82-101); Mean Platelet Volume 11.7 fL (7.4-10.4); Monocytes # 0.1 10^3/uL (0.2-0.9); Monocytes % 1.9 %; Neutrophils # 6.46 10^3/uL (1.8-7.7); Neutrophils % 87.2 %; Nucleated Red Blood Cells % 0 %; Platelet Count 91 10^3/cmm (157-399); Red Blood Count 2.51 10^6/uL (3.85-5.65)
[2023-12-01] MEDS: nystatin powder 15 gm Btl 1 APPLIC TOPICAL ×2 (04:18→16:14)
[2023-12-01 04:24] LABS: Anion Gap 13.3 (5-19); Blood Urea Nitrogen 21 mg/dL (8-23); Calcium 8.7 mg/dL (8.5-10.5); Carbon Dioxide 26 mmol/L (22-29); Chloride 103 mmol/L (98-107); Creatinine Clr Calc Pharmacy 90.7784; Glomerular Filtration Rate 213.3 mL/min (90-130); Glucose 158 mg/dL (65-115); Osmolality Calculated 294 mOsm/kg (285-295); Potassium 3.3 mmol/L (3.5-5.1); Sodium 139 mmol/L (136-145)
[2023-12-01] MEDS: fentaNYL 1,000 MCG/100 ML BAG 10 MCG IV ×3 (04:56→23:39)
[2023-12-01] MEDS: aspirin 81 mg EC Tablet PO (05:28)
[2023-12-01] MEDS: piperacillin-tazobactam 3.375 GM in sodium chloride 0.9% (plus) 50 ML IV ×3 (06:04→23:46)
--- NOTE | 2023-12-01 07:07 | P.PN_ITS ---
Subjective 2 Subjective: 68 yo wm with h/o oral and nasal bleedin g as well as thrombocytopenia. The patient has had intermittent nasal and oral bleeding by report over the weekend. There are no other head and neck c/o. The patient has failed extubation and was reintubated yesterday. The patient had a neck CT scan last evening. Medications: Reviewed: Yes Vitals/I&O/Wt Last Vital Signs Temp 97.6 F 12/01/23 04:00 Pulse 61 12/01/23 06:00 Resp 14 12/01/23 04:13 BP 149/83 12/01/23 06:00 Pulse Ox 95 12/01/23 06:00 O2 Del Method Mechanical Ventilation 12/01/23 01:37 O2 Flow Rate 4 11/30/23 18:00 FiO2 28 12/01/23 04:13 11/30/23 12/01/23 12/01/23 22:59 06:59 14:59 Intake Total 323.537 / 623.537 748.382 / 1371.919 Output Total 925 / 925 750 / 1675 Balance -601.463 / -301.463 -1.618 / -303.081 Weight last 48 hrs Weight 83 kg Weight 84.964 kg Weight 85 kg Weight 85.729 kg Physical Exam 2 Const: GENERAL APPEARANCE: patient mechanically ventilated HENMT: COMMON NORMALS: normocephalic, atraumatic and Normal external nose present HEAD & SCALP: normocephalic and atraumatic NOSE: Normal external nose present and Other nasal findings present (There is dried blood on the patient's nares, but no active bleeding noted) TEETH & GINGIVA: Yes other (No bleeding noted. ) Urinary Catheter Management: Strange: Cath Placed During This Visit: yes Reason for Continuing Indwelling Catheter: Accurate Measurement of Urinary Output in Critically Ill Patients Urinary Catheter Date of Insertion: 11/21/23 Urinary Catheter Time of Insertion: 11:40 Data 12/01/23 03:27 12/01/23 03:[address]: My impression: Impression: Large, organzed clot in the [employer] REPRESENTATIVE; o/w as per radiology A&P Assessment and plan (1) Epistaxis: Impression: Right sided epistaxis with oral bleeding Plan: - I placed a Rapid Rhino Nasal packing in the patient's right nasal cavity and a Merocel nasal pack in the patient's left nasal cavity this morning. - I recommend removal in 3-5 days - Consider other options based on the patient's response to this intervention (2) Thrombocytopenia: (3) Mouth bleeding: (4) Respiratory failure: Impression: Respiratory Failure with failed extubation X several Plan: - Consider tracheotomy: Dr. Hudson with contact me if he wishes to pursue this - Consider Direct Laryngoscopy at the time of tracheotomy to further evaluate the patient's upper airway to r/o any other potential sources for the patient's oral bleeding Attestations 2 Medical Necessity Statement*: I was contacted to assess the patient's oral and nasal bleeding. Coding Level [facility] Care [facility] Ep[facility]axis R04.0 Thrombocytopenia D69.6 Mouth bleeding K13.79 Respiratory failure J96.90
[2023-12-01] MEDS: budesonide 0.5 mg/2 mL Neb INHALATION ×2 (08:23→20:06)
[2023-12-01] MEDS: zinc gluconate 50 mg Tablet PO (08:32)
[2023-12-01] MEDS: pantoprazole 40 mg SDV IVP ×2 (08:32→20:19)
[2023-12-01] MEDS: vancomycin 100 mg/1 mL Oral Syringe 125 MG PO ×3 (08:32→16:13)
[2023-12-01] MEDS: gabapentin 100 mg Capsule PO ×2 (08:32→15:22)
[2023-12-01] MEDS: norepinephrine 4 MG/250 ML BAG 7.5 MG IV (12:13)
--- NOTE | 2023-12-01 13:30 | PC.SOCIAL ---
IMM Update pg 2 of IMM updated and reviewed w/ patients . Copy provided and copy dated, initialed and placed in chart.
[2023-12-01] MEDS: AA DEX IV (13:40)
[2023-12-01] MEDS: LYTES IV (13:40)
--- NOTE | 2023-12-01 14:12 | P.PN_ITS ---
Subjective 2 Subjective: Somnolent, opening his eyes. Vitals/I&O/Wt Last Vital Signs Temp 98.6 F 12/01/23 09:45 Pulse 69 12/01/23 13:43 Resp 14 12/01/23 13:45 BP 101/65 12/01/23 12:31 Pulse Ox 95 12/01/23 13:45 O2 Del Method Mechanical Ventilation 12/01/23 13:43 O2 Flow Rate 4 11/30/23 18:00 FiO2 28 12/01/23 13:45 11/30/23 12/01/23 12/01/23 22:59 06:59 14:59 Intake Total 323.537 / 623.537 748.382 / 1371.919 754.610 / 754.610 Output Total 925 / 925 750 / 1675 Balance -601.463 / -301.463 -1.618 / -303.081 754.610 / 754.610 Weight last 48 hrs Weight 88.451 kg Weight 83 kg Weight 84.964 kg Weight 85 kg Physical Exam 2 Narrative: Accompanied by his . Const: COMMON NORMALS: alert GENERAL APPEARANCE: cooperative and patient mechanically ventilated ORIENTATION/CONSCIOUSNESS: Yes awake OTHER: No oral blood today. Nasal packing in the right nostril. HENMT: COMMON NORMALS: oropharynx normal Neck/C-Spine: COMMON NORMALS: no JVD Resp: COMMON NORMALS: normal respiratory effort and clear to auscultation bilaterally AUSCULTATION: clear to auscultation bilaterally, no wheezes and diminished lung sounds Cardio: COMMON NORMALS: no JVD, regular rhythm, S1 normal heart sound present, S2 normal heart sound present and No murmurs present (Cardio) RHYTHM: regular rhythm HEART SOUNDS: S1 normal heart sound present and S2 normal heart sound present GI: COMMON NORMALS: Normal to inspection, nondistended, normoactive bowel sounds present, Soft to palpation and non-tender PALPATION: Yes Soft to palpation Extremity: COMMON NORMALS: no joint enlargement and no pedal edema OTHER: Edema of hands with improvement, L>R Neuro: COMMON NORMALS: moves all extremities SENSORIUM/ORIENTATION: Yes alert Skin: COMMON NORMALS: no rashes or lesions noted GENERAL SKIN EXAM: no rashes or lesions noted Urinary Catheter Management: Strange: Cath Placed During This Visit: yes Reason for Continuing Indwelling Catheter: Accurate Measurement of Urinary Output in Critically Ill Patients Urinary Catheter Date of Insertion: 11/21/23 Urinary Catheter Time of Insertion: 11:40 Data 12/01/23 03:27 12/01/23 03:27 Micro: Microbiology 11/30/23 19:10 Gram Stain - Final Sputum - Endotracheal Tube Aspirate A&P Assessment and plan (1) Respiratory failure: With recurrent respiratory failure, difficulty protecting airway, clearing secretions, with bleeding reintubated last night to further protect airway and seek placement of tracheostomy as per discussion with patient as well as his . Both agreeable to proceed. Reviewed vitals, intake and output, CBC, INR, ABG, BMP. Reviewed neck CT. Discussed with ENT. Nasal packing placed this morning by ENT on concern for posterior nasal bleeding from the right nostril. Discussed with case management, peer to peer completed to allow him to go to LT[facility] to start rehabilitation at the same time as obtaining tracheostomy and PEG tube, but declined. Discussed also with his oncologist, discussed with his , overall has not had metastatic disease systemically noted on CT chest abdomen pelvis with contrast on 11/20. Known brain metastatic lesion, certainly in case this were to progress may be an difficult situation already having had second line chemotherapy, although it is unknown when the lesion may grow or additional lesions may develop. As per discussion with patient's to try to get him liberated from the ventilator they would like to proceed with tracheostomy and PEG here. Discussed with ENT, general surgery for PEG. Undergoing this evening. Once these are done would resume tube feeds, stop TPN once able to use the PEG. Monitor LY. Reassess volume status. Continue preantibiotic coverage for now with vancomycin and Zosyn. Monitor renal function for risk of TON with antibiotic combination. With deferred extubation for today starting him on low rate tube feeds as well, monitor for any regurgitation. Cut down Decadron to 3 mg Completed remdesivir course. Consider modified barium swallow prior to resuming oral intake after extubation. Consider CPAP for sleep apnea but as discussed with oral bleeding this may be associated with to greater risk of aspiration. (2) Hypoglycemia: Improved with TPN. Monitor for risk of fluid overload. Resume tube feeds once PEG in place and operational. Blood glucose in the 60s on 11/29. (3) Acute hypoxic respiratory failure: As above. Most likely in combination of altered mental status along with pneumonitis as seen on CT. COVID-19 positive. Urine Legionella bacterial antigen negative. Sputum culture, blood culture Acinetobacter, haemophilus influenza. Negative MRSA swab. (4) DVT (deep venous thrombosis): Once bleeding controlled, consider if at some point may be safe to resume anticoagulation. Status post IVC filter. Platelets improving. PTT normalized. Reviewed hemoglobin, platelets today, without worsening, no outward bleeding, heparin initially continued, but developed oral bleeding, anticoagulation had to be stopped. Recheck PTT, CBC requested. CT of the head reviewed. 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 (5) Septic shock: Resolved. With sedation intermittently blood pressure soft, intermittently requiring low rate pressor. Maintain MAP over 65. (6) COVID-19: Isolation discontinued as it has been more than 10 days, he has not been febrile, respiratory failure protracted but with some persistent damage secondary to COVID, also other reasons including aspiration, possibly superimposed bacterial pneumonia. Can discontinue dexamethasone, although currently I cannot access orders as they are locked. Completed remdesivir. Complicated by DVT. Status post IVC filter, intolerant of anticoagulation. Hypoxia secondary to COVID-19 pneumonia: Severe disease. Oxygen supplementation keeping saturation over 88%. DuoNeb every 6 hour, budesonide twice daily Last echocardiogram from March showed an EF of 60 to 65% without regional wall motion bradycardia, mild TR. (7) Elevated troponin: Continue low-dose aspirin. Consider nonemergent stress test. Cannot rule out non-ST elevation OK. Concerns for type II OK. Continues with aspirin. Unable to tolerate anticoagulation. Echocardiogram to monitor EF and rule out regional wall motion abnormality. Appreciate A1c, lipid panel. Continue with home dose of aspirin 81 mg daily. (8) C. difficile colitis: Continue oral vancomycin 125 mg[address] Colitis seen on CT abdomen/pelvis. (9) Acute metabolic encephalopathy: Overall encephalopathy had improved. He has been alert when off sedation, following directions, but has been getting weaker. Most likely in setting of severe infection/COVID-19 along with high doses of gabapentin and oxycodone. Continue to monitor. Currently sedated. Will plan for daily sedation medication. 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 Qualifiers: Laterality: unspecified laterality Lung location: unspecified part of lung Qualified Code(s): C34.90 - Malignant neoplasm of unspecified part of unspecified bronchus or lung (12) Metastasis to brain: (13) MRSA nasal colonization: (14) Diarrhea: Plan Chronic medication including Xanax as needed, sertraline. gabapentin at a lower dose to avoid withdrawals at 100 mg 3 times daily. CODE STATUS: will be the DPOA. Full code. Attestations 2 Medical Necessity Statement*: Continue admission for assessment and management of respiratory failure, trach, PEG. Coding Level of Care Code Critical Care >/= 30 minutes Critical care time (in minutes): 45 The high probability of a clinically significant, sudden or life threatening deterioration, as referenced in this documentation, required my full and direct attention, intervention and personal management. The critical care time shown is in addition to time spent performing any reported separately billable procedures and includes the following: [x] Data and vital sign review and interpretation [x ] Patient assessment, examination and intervention [x] Medication orders and management [x] Patient/Family updates as able [x] Care Coordination and Documentation. Diagnoses Respiratory failure J96.90 Hypoglycemia E16.2 Acute hypoxic respiratory failure J96.01 DVT (deep venous thrombosis) I82.409 Septic shock A41.9; R65.21 COVID-19 U07.1 Elevated troponin R79.89 C. difficile colitis A04.72 Acute metabolic encephalopathy G93.41 Port-A-Cath in place Z95.828 Small cell carcinoma of lung, unspecified laterality, unspecified part of lung C34.90 Laterality: unspecified laterality Lung location: unspecified part of lung Metastasis to brain C79.31 MRSA nasal colonization Z22.322 Diarrhea R19.7
--- NOTE | 2023-12-01 15:18 | P.CONIM_ITS ---
Providers/Reason For Consult 2 Consulting Physician/Specialty*: General surgery Reason for Consult*: PEG tube Attending Physician: Salazar Mcbride Primary Care Provider: Lianet Hannah MD History of Present Illness History of Present Illness Karl Martinez is a 68 year old male with history of small cell lung cancer who was admitted with COVID-19 pneumonia and has had a protracted hospital course, he has remained intubated and sedated, had 2 attempts to extubation and was unable to tolerate therefore he is going to proceed with tracheostomy tube placement and therefore I have also been requested to proceed with a PEG tube placement for long-term feeding. Review of Systems 2 General: Reports: ROS unobtainable due to endotracheal tube Medications/Allergies Home Medications Medication Instructions Recorded Confirmed Last Taken Type aspirin 81 mg tablet,delayed 81 mg PO QAM 01/07/22 11/21/23 11/20/23 History release nitroglycerin 0.4 mg sublingual 0.4 mg sublingual Q5M PRN Chest 02/21/22 11/21/23 Unknown Rx tablet (Nitrostat) Pain #25 tabs ferrous sulfate 325 mg (65 mg 325 mg PO QPM 06/28/22 11/21/23 11/20/23 History iron) tablet cholecalciferol (vitamin D3) 125 125 mcg PO DAILY 08/09/22 11/21/23 11/20/23 History mcg (5,000 unit) capsule mecobalamin (vitamin B12) 500 mcg 500 mcg PO DAILY 08/09/22 11/21/23 11/20/23 History chewable tablet centvmdd-tnx-bpeto 150 mcg-vit K1 1 tab PO DAILY 08/09/22 11/21/23 11/20/23 History 30 mcg-lycop 300 mcg-lutein tablet (Centrum Minis Men 50 Plus) lorazepam 1 mg tablet 0.5 - 1 mg (0.5 - 1 x 1 mg) PO Q6H 12/16/22 11/21/23 Unknown Rx PRN Severe Nausea #30 tabs acetaminophen 650 mg 650 mg PO Q8H PRN pain or 12/17/22 11/21/23 06/04/23 History tablet,extended release (Pain inflammation Relief (acetaminophen)) metoprolol tartrate 25 mg tablet 12.5 mg (1/2 x 25 mg) PO BID #30 06/16/23 11/21/2311/19/24 Rx tabs omeprazole 20 mg capsule,delayed 20 mg PO BID 90 days #180 caps 08/14/23 11/21/23 11/20/23 Rx release sertraline 25 mg tablet (Zoloft) 25 mg PO DAILY 90 days #90 tabs 08/15/23 11/21/23 11/20/23 Rx tizanidine 2 mg tablet 2 mg PO Q8H PRN muscle spasticity 08/15/23 11/21/23 Unknown Rx #90 tabs acetaminophen 300 mg-codeine 30 mg 1 tab PO Q8H PRN pain 7 days #21 10/13/23 11/21/23 Unknown Rx tablet tabs oxycodone 15 mg tablet 15 mg PO Q6H PRN pain 30 days #120 11/03/23 11/21/23 11/20/23 Rx tabs ascorbic acid (vitamin C) 500 mg 250 mg PO BID 11/21/23 11/21/23 11/20/23 History tablet (Vitamin C) gabapentin 300 mg capsule 300 mg PO TID 11/21/23 11/21/23 Unknown History Allergies Allergy/AdvReac Type Severity Reaction Status Date / Time Vrmaeet-ERD-WcG Reductase Allergy Unknown Verified 11/20/23 09:17 Inhibitor Current Medications Generic Name Dose Route Start Last Admin Trade Name Freq PRN Reason Stop Dose Admin Albuterol/Ipratropium 3 ml 11/21/23 20:00 12/01/23 13:42 Ipratropium-Albuterol 3 Ml Neb INHALATION 3 ml Q6H.RESP DESTINY Administration Aspirin 81 mg 11/22/23 06:00 12/01/23 05:28 Aspirin 81 Mg Ec Tablet PO 81 mg QAM DESTINY Administration Budesonide 0.5 mg 11/22/23 20:00 12/01/23 08:23 Budesonide 0.5 Mg/2 Ml Neb INHALATION 0.5 mg BID.RESPIRATORY DESTINY Administration Chlorhexidine Gluconate 1 applic 12/01/23 01:00 12/01/23 02:13 Chlorhexidine Gluconate 4% Btl 118 Ml TOPICAL 1 applic 0100 DESTINY Administration Dexamethasone 3 mg 11/27/23 15:00 11/30/23 15:56 Dexamethasone 4 Mg/Ml Inj IVP 3 mg Q24H DESTINY Administration Gabapentin 100 mg 11/21/23 21:15 12/01/23 08:32 Gabapentin 100 Mg Capsule PO 100 mg TID DESTINY Administration Propofol 1,000 mg in 100 mls @ 0 mls/hr 11/21/23 11:15 12/01/23 10:09 Diprivan IV 25 mcg/kg/min .Q0M DESTINY 12.93 mls/hr Administration Protocol Per Protocol Norepinephrine Bitartrate 4 mg in 250 mls @ 0 mls/hr 11/21/23 12:00 12/01/23 14:21 Levophed IV 4 mcg/min .Q0M DESTINY 15 mls/hr Titration Protocol Per Protocol Fentanyl 1,000 mcg in 100 mls @ 0 mls/hr 11/21/23 18:45 12/01/23 14:20 Sublimaze IV 100 mcg/hr .Q0M DESTINY 10 mls/hr Administration Protocol Per Protocol Dexmedetomidine/Sodium Chloride 400 mcg in 100 mls @ 0 mls/hr 11/24/23 19:15 11/26/23 19:00 Precedex IV Infused .Q0M DESTINY Titration Protocol Per Protocol Piperacillin Sod/Tazobactam 50 mls @ 12.5 mls/hr 11/24/23 23:00 12/01/23 10:08 Sod 3.375 gm/ Sodium Chloride IV Infused Q8H DESTINY Infusion Vancomycin HCl 1,250 mg in 250 mls @ 200 mls/hr 11/28/23 20:00 12/01/23 03:36 Vancocin IV Infused Q18H DESTINY Infusion Dextrose 1,000 mls @ 20 mls/hr 11/30/23 11:15 11/30/23 17:07 D10w IV 0 mls/hr .Q24H DESTINY Infusion Amino Acids/Electrolytes/Dextrose 1,000 mls @ 83 mls/hr 11/30/23 17:00 12/01/23 13:40 Clinimix 8%-10% (Lytes) Iv 1,000 Ml IV 63 mls/hr .Q12H3M DESTINY Administration Morphine Sulfate 2 mg 11/29/23 12:01 11/30/23 12:48 Morphine 4 Mg/Ml Sdv 1 Ml IVP 2 mg Q4H PRN Administration SEVERE PAIN Nystatin 1 applic 11/26/23 00:00 12/01/23 04:18 Nystatin Powder 15 Gm Btl TOPICAL 1 applic BID DESTINY Administration Pantoprazole Sodium 40 mg 11/24/23 19:45 12/01/23 08:32 Pantoprazole 40 Mg Sdv IVP 40 mg Q12H DESTINY Administration Sertraline HCl 25 mg 11/22/23 09:00 11/30/23 08:42 Sertraline 50 Mg Tablet PO Not Given DAILY DESTINY Vancomycin HCl 125 mg 11/26/23 21:00 12/01/23 13:02 Vancomycin 100 Mg/1 Ml Oral Syringe PO 125 mg QID DESTINY Administration Zinc Gluconate 50 mg 11/22/23 09:00 12/01/23 08:32 Zinc Gluconate 50 Mg Tablet PO 50 mg DAILY DESTINY Administration PFSH Acute 2 PFSH: Medical History Falls frequently Frail elderly Small cell lung cancer Pneumonia Port-A-Cath in place Neutropenia Chronic back pain GERD (gastroesophageal reflux disease) Coronary artery disease Hypertension Abdominal aortic aneurysm Congenital umbilical hernia Carpal tunnel syndrome on both sides Past heart attack COPD (chronic obstructive pulmonary disease) Surgical History Hx of umbilical hernia repair History of tonsillectomy and adenoidectomy History of bilateral carpal tunnel release S/P AAA repair using bifurcation graft History of endovascular stent graft for abdominal aortic aneurysm (AAA) History of heart artery stent S/P rotator cuff repair Family History Family/Other Cancer Father CAD (coronary artery disease) Stroke Brother CAD (coronary artery disease) Brother CAD (coronary artery disease) Diabetes Sister CAD (coronary artery disease) Cancer Chronic kidney disease (CKD) Diabetes Sister Cancer Diabetes Mother Stroke Other Hyperlipidemia Hypertension Psychiatric illness Denies family history of Clotting disorder Dementia Suicide Anesthesia complication Bleeding disorder Lung disease Social History Smoking and tobacco/nicotine status: unknown if used tobacco/nicotine Quit status (tobacco/nicotine): has quit using Year quit tobacco: 2021 Former quit date comment: December 2021 Alcohol intake: never Substance/Drug Use: never Vitals/I&O/Wt Last Vital Signs Temp 97.6 F 12/01/23 12:46 Pulse 84 12/01/23 14:52 Resp 14 12/01/23 13:45 BP 99/65 12/01/23 14:30 Pulse Ox 95 12/01/23 14:30 O2 Del Method Mechanical Ventilation 12/01/23 14:30 O2 Flow Rate 4 11/30/23 18:00 FiO2 28 12/01/23 13:45 12/01/23 12/01/23 12/01/23 06:59 14:59 22:59 Intake Total 748.382 / 1371.919 864.610 / 864.610 Output Total 750 / 1675 Balance -1.618 / -303.081 864.610 / 864.610 Weight last 48 hrs Weight 195 lb Weight 182 lb 15.739 oz Weight 187 lb 5 oz Weight 187 lb 6.287 oz Physical Exam 2 Narrative: Patient is intubated and sedated, unresponsive at the moment of my evaluation. Abdominal exam is benign. Urinary Catheter Management: Strange: Cath Placed During This Visit: yes Reason for Continuing Indwelling Catheter: Accurate Measurement of Urinary Output in Critically Ill Patients Urinary Catheter Date of Insertion: 11/21/23 Urinary Catheter Time of Insertion: 11:40 Data 12/01/23 03:27 12/01/23 03:27 Micro: Microbiology 11/30/23 19:10 Gram Stain - Final Sputum - Endotracheal Tube Aspirate A&P Assessment and plan (1) Adult failure to thrive: Plan After complete history, physical examination and review of all available clinical data the following is my assessment. Patient will benefit from PEG tube placement for enteral nutrition, family member was contacted about this knows that he has a very poor prognosis but would like to give him a chance to have some feeding through the PEG tube. Explained to the all the reasonable benefits of the PEG tube placement including the risk of peritonitis, migration of the PEG tube, sepsis, necrotizing soft tissue infection, chronic drainage, need for additional interventions, . shows understanding wishes to proceed. Coding Level of Care Code 40301 Diagnoses Adult failure to thrive R62.7
[2023-12-01] MEDS: dexamethasone 4 mg/mL INJ 3 MG IVP (15:22)
--- NOTE | 2023-12-01 16:05 | ANES.PREANE2 ---
Pre-Anesthetic Assessment Height/Weight: Height 5 ft 7 in Weight 195 lb Temp Pulse Resp BP Pulse Ox O2 Del Method O2 Flow Rate 97.6 F 84 15 99/65 94 Mechanical Ventilation 4 12/01/23 12:46 12/01/23 14:52 12/01/23 15:54 12/01/23 14:30 12/01/23 15:54 12/01/23 14:30 11/30/23 18:00 FiO2 28 12/01/23 15:54 Preop Diagnosis: GI Bleed/ DVT/ thrombocytopenia/anemia Operation Date: 11/26/23 08:30 Proposed Procedures p IVC Filter Insertion(Not Applicable) - Mervin Noe M.D Operation Date: 12/01/23 18:10 Proposed Procedures p Tracheostomy(Not Applicable) - Demarco Olvera MD s Direct Laryngoscopy(Not Applicable) - Demarco Olvera MD s PEG Tube Insertion(Not Applicable) - Karl Perez MD Social No alcohol and No tobacco Exam Patient is currently sedated on propofol and fentanyl, currently on Levophed for pressure support Airway Submandibular: within normal limits Cervical ROM: within normal limits Comments: Comments: Patient is currently intubated with ETT Anesthetic Plan ASA status: 4E Anesthesia: General Other: Patient has a very significant past medical history, initially presenting 11/20 with metabolic encephalopathy/unresponsiveness secondary to sepsis Patient has been extubated twice, requiring reintubation due to failed extubation and oral bleeding Current plan is to perform tracheostomy with laryngoscopy per ENT surgeon as well as PEG tube placement 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 Abdominal aortic aneurysm with stent placed COPD Prior CVA, 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 CAD with stent placed years ago Patient has an active blood clot in the leg, IVC filter placed 2 days ago Patient is currently on propofol at 30 mcg/kg/min, levophed at 4mcg/min, and fentanyl at 100mcg/hr Labs reviewed today, hemoglobin 8.3, platelet 91, potassium 3.3 ABG showing pH 7.5, PaO2 163, pCO2 36 Patient's is at bedside, risks of anesthesia explained and she acknowledges those risks Plan for general anesthesia Medications/Allergies Home Medications Medication Instructions Recorded Confirmed Last Taken Type aspirin 81 mg tablet,delayed 81 mg PO QAM 01/07/22 11/21/23 11/20/23 History release nitroglycerin 0.4 mg sublingual 0.4 mg sublingual Q5M PRN Chest 02/21/22 11/21/23 Unknown Rx tablet (Nitrostat) Pain #25 tabs ferrous sulfate 325 mg (65 mg 325 mg PO QPM 06/28/22 11/21/23 11/20/23 History iron) tablet cholecalciferol (vitamin D3) 125 125 mcg PO DAILY 08/09/22 11/21/23 11/20/23 History mcg (5,000 unit) capsule mecobalamin (vitamin B12) 500 mcg 500 mcg PO DAILY 08/09/22 11/21/23 11/20/23 History chewable tablet [id number] 150 mcg-vit K1 1 tab PO DAILY 08/09/22 11/21/23 11/20/23 History 30 mcg-lycop 300 mcg-lutein tablet (Centrum Minis Men 50 Plus) lorazepam 1 mg tablet 0.5 - 1 mg (0.5 - 1 x 1 mg) PO Q6H 12/16/22 11/21/23 Unknown Rx PRN Severe Nausea #30 tabs acetaminophen 650 mg 650 mg PO Q8H PRN pain or 12/17/22 11/21/23 06/04/23 History tablet,extended release (Pain inflammation Relief (acetaminophen)) metoprolol tartrate 25 mg tablet 12.5 mg (1/2 x 25 mg) PO BID #30 06/16/23 11/21/23 11/20/23 Rx tabs omeprazole 20 mg capsule,delayed 20 mg PO BID 90 days #180 caps 08/14/23 11/21/23 11/20/23 Rx release sertraline 25 mg tablet (Zoloft) 25 mg PO DAILY 90 days #90 tabs 08/15/23 11/21/23 11/20/23 Rx tizanidine 2 mg tablet 2 mg PO Q8H PRN muscle spasticity 08/15/23 11/21/23 Unknown Rx #90 tabs acetaminophen 300 mg-codeine 30 mg 1 tab PO Q8H PRN pain 7 days #21 10/13/23 11/21/23 Unknown Rx tablet tabs oxycodone 15 mg tablet 15 mg PO Q6H PRN pain 30 days #120 11/03/23 11/21/23 11/20/23 Rx tabs ascorbic acid (vitamin C) 500 mg 250 mg PO BID 11/21/23 11/21/23 11/20/23 History tablet (Vitamin C) gabapentin 300 mg capsule 300 mg PO TID 11/21/23 11/21/23 Unknown History Allergies Allergy/AdvReac Type Severity Reaction Status Date / Time [id number] Reductase Allergy Unknown Verified 11/20/23 09:17 Inhibitor Current Medications Generic Name Dose Route Start Last Admin Trade Name Richi PRN Reason Stop Dose Admin Albuterol/Ipratropium 3 ml 11/21/23 20:00 12/01/23 13:42 Ipratropium-Albuterol 3 Ml Neb INHALATION 3 ml Q6H.RESP DESTINY Administration Aspirin 81 mg 11/22/23 06:00 12/01/23 05:28 Aspirin 81 Mg Ec Tablet PO 81 mg QAM DESTINY Administration Budesonide 0.5 mg 11/22/23 20:00 12/01/23 08:23 Budesonide 0.5 Mg/2 Ml Neb INHALATION 0.5 mg BID.RESPIRATORY DESTINY Administration Chlorhexidine Gluconate 1 applic 12/01/23 01:00 12/01/23 02:13 Chlorhexidine Gluconate 4% Btl 118 Ml TOPICAL 1 applic 0100 DESTINY Administration Dexamethasone 3 mg 11/27/23 15:00 12/01/23 15:22 Dexamethasone 4 Mg/Ml Inj IVP 3 mg Q24H DESTINY Administration Gabapentin 100 mg 11/21/23 21:15 12/01/23 15:22 Gabapentin 100 Mg Capsule PO 100 mg TID DESTINY Administration Propofol 1,000 mg in 100 mls @ 0 mls/hr 11/21/23 11:15 12/01/23 10:09 Diprivan IV 25 mcg/kg/min .Q0M DESTINY 12.93 mls/hr Administration Protocol Per Protocol Norepinephrine Bitartrate 4 mg in 250 mls @ 0 mls/hr 11/21/23 12:00 12/01/23 14:21 Levophed IV 4 mcg/min .Q0M DESTINY 15 mls/hr Titration Protocol Per Protocol Fentanyl 1,000 mcg in 100 mls @ 0 mls/hr 11/21/23 18:45 12/01/23 14:20 Sublimaze IV 100 mcg/hr .Q0M DESTINY 10 mls/hr Administration Protocol Per Protocol Dexmedetomidine/Sodium Chloride 400 mcg in 100 mls @ 0 mls/hr 11/24/23 19:15 11/26/23 19:00 Precedex IV Infused .Q0M DESTINY Titration Protocol Per Protocol Piperacillin Sod/Tazobactam 50 mls @ 12.5 mls/hr 11/24/23 23:00 12/01/23 15:21 Sod 3.375 gm/ Sodium Chloride IV 12.5 mls/hr Q8H DESTINY Administration Vancomycin HCl 1,250 mg in 250 mls @ 200 mls/hr 11/28/23 20:00 12/01/23 03:36 Vancocin IV Infused Q18H DESTINY Infusion Dextrose 1,000 mls @ 20 mls/hr 11/30/23 11:15 11/30/23 17:07 D10w IV 0 mls/hr .Q24H DESTINY Infusion Amino Acids/Electrolytes/Dextrose 1,000 mls @ 83 mls/hr 11/30/23 17:00 12/01/23 13:40 Clinimix 8%-10% (Lytes) Iv 1,000 Ml IV 63 mls/hr .Q12H3M DESTINY Administration Morphine Sulfate 2 mg 11/29/23 12:01 11/30/23 12:48 Morphine 4 Mg/Ml Sdv 1 Ml IVP 2 mg Q4H PRN Administration SEVERE PAIN Nystatin 1 applic 11/26/23 00:00 12/01/23 04:18 Nystatin Powder 15 Gm Btl TOPICAL 1 applic BID DESTINY Administration Pantoprazole Sodium 40 mg 11/24/23 19:45 12/01/23 08:32 Pantoprazole 40 Mg Sdv IVP 40 mg Q12H DESTINY Administration Sertraline HCl 25 mg 11/22/23 09:00 11/30/23 08:42 Sertraline 50 Mg Tablet PO Not Given DAILY DESTINY Vancomycin HCl 125 mg 11/26/23 21:00 12/01/23 13:02 Vancomycin 100 Mg/1 Ml Oral Syringe PO 125 mg QID DESTINY Administration Zinc Gluconate 50 mg 11/22/23 09:00 12/01/23 08:32 Zinc Gluconate 50 Mg Tablet PO 50 mg DAILY DESTINY Administration PFSH Anesthesia Medical History Falls frequently Frail elderly Small cell lung cancer Pneumonia Port-A-Cath in place Neutropenia Chronic back pain GERD (gastroesophageal reflux disease) Coronary artery disease Hypertension Abdominal aortic aneurysm Congenital umbilical hernia Carpal tunnel syndrome on both sides Past heart attack COPD (chronic obstructive pulmonary disease) Surgical History Hx of umbilical hernia repair History of tonsillectomy and adenoidectomy History of bilateral carpal tunnel release S/P AAA repair using bifurcation graft History of endovascular stent graft for abdominal aortic aneurysm (AAA) History of heart artery stent S/P rotator cuff repair Family History Family/Other Cancer Father CAD (coronary artery disease) Stroke Brother CAD (coronary artery disease) Brother CAD (coronary artery disease) Diabetes Sister CAD (coronary artery disease) Cancer Chronic kidney disease (CKD) Diabetes Sister Cancer Diabetes Mother Stroke Other Hyperlipidemia Hypertension Psychiatric illness Denies family history of Clotting disorder Dementia Suicide Anesthesia complication Bleeding disorder Lung disease Social History Smoking and tobacco/nicotine status: unknown if used tobacco/nicotine Quit status (tobacco/nicotine): has quit using Year quit tobacco: 2021 Former quit date comment: December 2021 Alcohol intake: never Substance/Drug Use: never Data Anesthesia 12/01/23 03:27 12/01/23 03:27 Short CBC 11/30/23 12/01/23 Range/Units 05:27 03:27 WBC 7.12 7.40 (3.29-11.43) 10^3/uL Hgb 8.90 L 8.30 L (11.27-16.99) g/dL Hct 27.4 L 26.0 L (37-53) % MCV 101.9 H 103.6 H (82-101) fl Plt Count 83 L 91 L (157-399) 10^3/cmm Neut % (Auto) 88.6 87.2 % Neut # (Auto) 6.30 6.46 (1.8-7.7) 10^3/uL BMP 11/30/23 12/01/23 05:27 03:27 Sodium 141 139 Potassium 3.5 3.3 L Chloride 103 103 Carbon Dioxide 29 26 BUN 17 21 Creatinine 0.3 L 0.4 L Glucose 65 158 H Calcium 9.0 8.7 Liver Function 11/30/23 Range/Units 05:27 Total Bilirubin 1.0 (0.15-1.2) mg/dL AST 21 (0-40) U/L ALT 25 (0-41) U/L Alkaline Phosphatase 70 (40-130) U/L Albumin 3.5 (3.5-5.2) g/dL Coags 11/30/23 20:51 PT 13.70 INR 1.02 ABG 11/30/23 11/30/23 18:07 19:38 Specimen Type Arterial Arterial Sample Site Radial, right Radial, right ABG pH 7.46 H 7.51 H ABG pCO2 41.3 36.1 ABG pO2 63.9 L 163.0 H ABG PO2/FiO2 Ratio 159 326 ABG HCO3 29.5 H 28.8 H ABG O2 Saturation 93.3 ABG Base Excess 5.2 H 5.5 H A-a O2 Gradient 22.1 H O2 Delivery Device Nc Vent O2 Liters/Min 5.0 FiO2 40.0 50.0 Tidal Volume 0.50 PEEP 5.0 Microbiology 11/30/23 19:10 Gram Stain - Final Sputum - Endotracheal Tube Aspirate Cardiac Studies: Echocardiogram 11/23/23 Transesophageal Echocardiogram 05/20/22 Sestamibi Stress Test (Cardiology) 04/14/23 Cardiac Event Monitor 02/11/22
[2023-12-01] MEDS: propofol 1,000 MG/100 ML INJ 15.51 MG IV ×2 (16:18→22:40)
--- NOTE | 2023-12-01 18:09 | PC.NURSE ---
Patient in care of surgery team at 1810.
[2023-12-01] MEDS: lidocaine-epi 1% 20 mL INJ INJECTION (18:42)
[2023-12-01] MEDS: fluorescein 1 mg Strip XX (18:46)
[2023-12-01] MEDS: EPINEPHrine 1 mg/mL INJ XX (18:46)
[2023-12-01] MEDS: thrombin 5,000 unit SDV 5000 UNIT XX (18:51)
--- NOTE | 2023-12-01 19:32 | PM.OP2 ---
Brief Operative Note Date of procedure: 12/01/23 Procedure Done: Percutaneous Endoscopic Gastrostomy tube placement Estimated blood loss (mL): 5 Complications: none Post-op Plan: return to SICU Condition: critical (stable) Disposition: ICU Coding Level of Care Code Acute Code for Preeti Layne
--- NOTE | 2023-12-01 19:46 | PM.OP ---
Operative Report Date of procedure: December 01, 2023 Pre-op diagnosis: - Respiratory failure with failed extubation - Oral/Nasal bleeding Post-op diagnosis: same Post-op findings: - Normal anterior neck exam - Old blood clot present in the nasopharynx, but no active bleeding; oralpharnx and hypopharynx normal; inflammatory changes of the glottic larynx c/w with h/o prolonged intubation Procedure done: - Tracheotomy - Microdirect laryngoscopy Implants: None Specimens removed/disposition: None Pathology: none sent Surgeon: Demarco Olvera Surgeon: Demarco Olvera MD Software Security Consultant: Sridevi Forte Anesthesia: General Estimated blood loss (mL): 15 IV fluids (mL): 300 Complications: None Findings: - Normal anterior neck exam - Old blood clot filling the nasopharynx; normal oralpharynx and hypopharynx; inflammatory changes of the glottic larynx c/w prolonged intubation; o/w normal direct laryngoscopy Condition: stable Disposition: ICU Brief History: 68 yo wm with a h/o respiratory failure with prolonged intubation and failure of extubation X 3 with oral and nasal bleeding - the hospitalist team requests tracheotomy and evaluation of the patient's upper airway. Procedure: The patient was identified in the intensive care unit and was taken to the operating room and was placed on the operating table in the supine position. The patient was intubated and sedated and the tracheotomy incision was marked out on the patient's anterior neck with a marking pen. The incision was injected with local anesthesia and the patient was then prepped and draped in the usual sterile fashion. A vertical/sagittal incision was made over the cervical trachea and the dissection proceeded down through the subcutaneous tissues using electrocautery. The subcutaneous fat was debrided from the wound and the strap muscles were retracted laterally off of the airway. The patient had a thin thyroid isthmus that was dissected off of the airway and was divided with the harmonic scalpel. Once the trachea had been exposed the trachea was placed under the cricoid cartilage which was then used to suspend the airway superiorly. A window of cartilage was removed from the anterior portion of the second tracheal ring with a #11 blade and Metzenbaum scissors. At this point the indwelling endotracheal tube was was slowly withdrawn until it was out of the way and a #8 tracheotomy tube was placed through the newly created tracheotomy into the airway. Once the tracheotomy tube was in place, its position was confirmed with capnography. The retractors were removed from the wound and the tracheotomy tube was secured in place with 0 Prolene sutures and a trach strap. At this point a moist Ray-Starr was placed on the patient's maxillary gingiva and a surgical laryngoscope was used to inspect the patient's upper airway with findings previously noted. At this point the procedure was terminated and control of the patient was returned to anesthesia. This procedure was followed by Dr. Perez who performed a PEG placement. Please see his notes for details of his portion of the procedure.
--- NOTE | 2023-12-01 20:00 | ANE.PACU2 ---
Inpatient post-anesthesia follow up: Airway intact: No (trach in place) Vital signs: Temperature 98.5 F Pulse Rate 88 Respiratory Rate 24 Blood Pressure 96/64 Pulse Oximetry 93 Oxygen Delivery Me thod Mechanical Ventila tion Oxygen Flow Rate 28 Fraction of Inspir ed Oxygen 35 Hydration adequate: Yes Nausea and vomiting: No Pain level: 1 Mental status: Baseline
--- NOTE | 2023-12-01 20:25 | PC.NURSE ---
1999 -- Patient returned from OR, vancomycin dose due IV, trough not drawn while patient was in OR. Called [facility] telepharmacy spoke with seth and notified of current situation. Seth states to draw vanc trough now and to notify her of results and she will adjust the vancomycin as needed.
[2023-12-01 20:45] LABS: Vancomycin Trough 14.1 ug/mL (10-15)
--- NOTE | 2023-12-01 22:53 | PC.NUTR ---
Initate Jevity 1.5 @ 40mls/hr with FWF of 120mls Q4H or per MD via PEG. If pt is to remain strict NPO, home TF regimen to be as followed: Continuous: Jevity 1.5 @ 50 ml/hr x24hrs with FWF of 120 ml q4 Bolus: Jevity 1.5 @ 474ml @B, 237ml @L, 474ml @D with FWF of 120ml q4 Cyclic: Jevity 1.5 @ 75 ml/hr x16 hrs with FWF 120 ml q4 (provides 1800 kcals, 100% of EEN, 77g/protein, 77% of needs, and 100% of fluid needs) See most recent RD note for full assessment.
[2023-12-02] VITALS (114 sets, daily range): BP systolic 87–140; BP diastolic 60–89; PULSE 78–112; RESP 16–26; TEMP 36.2–38.2; O2SAT 91–100; BMI 30.2
[2023-12-02] MEDS: chlorhexidine gluconate 4% Btl 118 mL 1 APPLIC TOPICAL (00:54)
[2023-12-02] MEDS: nystatin powder 15 gm Btl 1 APPLIC TOPICAL ×2 (02:23→17:30)
[2023-12-02] MEDS: AA DEX IV ×2 (02:25→15:05)
[2023-12-02] MEDS: LYTES IV ×2 (02:25→15:05)
[2023-12-02] MEDS: ipratropium-albuterol 3 mL Neb INHALATION ×4 (02:52→20:06)
[2023-12-02] MEDS: norepinephrine 4 MG/250 ML BAG 15 MG IV (04:11)
[2023-12-02 05:05] LABS: Basophils % 0.1 %; Hematocrit 26.9 % (37-53); Lymphocytes # 0.5 10^3/uL (0.8-4.8); Lymphocytes % 5.2 %; Mean Corpuscular HGB Conc 31.6 g/dL (30-55); Mean Corpuscular Hemoglobin 32.8 pg (27-33); Mean Corpuscular Volume 103.9 fl (82-101); Mean Platelet Volume 12.1 fL (7.4-10.4); Monocytes # 0.2 10^3/uL (0.2-0.9); Monocytes % 2.2 %; Neutrophils # 8.12 10^3/uL (1.8-7.7); Neutrophils % 91.2 %; Nucleated Red Blood Cells % 0 %; Platelet Count 109 10^3/cmm (157-399); Red Blood Count 2.59 10^6/uL (3.85-5.65); White Blood Count 8.91 10^3/uL (3.29-11.43)
[2023-12-02 05:19] LABS: Anion Gap 16.1 (5-19); Blood Urea Nitrogen 34 mg/dL (8-23); Calcium 8.3 mg/dL (8.5-10.5); Carbon Dioxide 23 mmol/L (22-29); Chloride 106 mmol/L (98-107); Creatinine Clr Calc Pharmacy 92.4977; Glomerular Filtration Rate 213.3 mL/min (90-130); Glucose 226 mg/dL (65-115); Osmolality Calculated 307 mOsm/kg (285-295); Potassium 4.1 mmol/L (3.5-5.1); Sodium 141 mmol/L (136-145)
--- NOTE | 2023-12-02 05:48 | P.PN_ITS ---
Subjective 2 Subjective: 68 yo wm who is POD #1 s/p tracheotomy f or respiratory failure/prolonged intubation and Day #2 of nasal packing for right sided epistaxis. The patient is still having some nasal bleeding, but is o/w doing well. Medications: Reviewed: Yes Vitals/I&O/Wt Last Vital Signs Temp 97.1 F L 12/02/23 04:15 Pulse 85 12/02/23 05:40 Resp 16 12/02/23 04:10 BP 104/75 12/02/23 04:01 Pulse Ox 96 12/02/23 04:10 O2 Del Method Mechanical Ventilation 12/02/23 04:01 O2 Flow Rate 28 12/01/23 19:54 FiO2 35 12/02/23 04:10 12/01/23 12/01/23 12/02/23 14:59 22:59 06:59 Intake Total 864.610 / 864.610 926.217 / 6344.246 7363.170 / 2994.997 Output Total 900 / 900 Balance 864.610 / 864.610 26.217 / 853.576 7764.170 / 2094.997 Weight last 48 hrs Weight 88.451 kg Weight 83 kg Weight 84.964 kg Weight 85 kg Physical Exam 2 Const: GENERAL APPEARANCE: patient mechanically ventilated OTHER: Sedated HENMT: COMMON NORMALS: normocephalic and atraumatic HEAD & SCALP: n ormocephalic and atraumatic NOSE: Epistaxis present (Nasal packing in place with no bleeding. ) Neck/C-Spine: COMMON NORMALS: no lymphadenopathy and supple Urinary Catheter Management: Strange: Cath Placed During This Visit: yes Reason for Continuing Indwelling Catheter: Accurate Measurement of Urinary Output in Critically Ill Patients Urinary Catheter Date of Insertion: 11/21/23 Urinary Catheter Time of Insertion: 11:40 Data 12/02/23 04:28 12/02/23 04:28 Micro: Microbiology 11/30/23 19:10 Gram Stain - Final Sputum - Endotracheal Tube Aspirate A&P Assessment and plan (1) Epistaxis: Impression: STable Plan: - Continue nasal packing for 5-7 days - Consider further options based on the patient's response to treatment (2) Respiratory failure: Impression: POD #1 s/p Tracheotomy doing well from this standpoint Plan: - Continue trach care - First trach change on POD 5-7 Attestations 2 Medical Necessity Statement*: I was consulted to assist in management of the patient's airway and epistaxis. Coding Level of Care Code Acute Code for Chg Fwd Diagnoses Epistaxis R04.0 Respiratory failure J96.90
[2023-12-02] MEDS: piperacillin-tazobactam 3.375 GM in sodium chloride 0.9% (plus) 50 ML IV ×3 (06:04→23:27)
[2023-12-02] MEDS: propofol 1,000 MG/100 ML INJ 12.93 MG IV (06:06)
--- NOTE | 2023-12-02 07:27 | P.PN_ITS ---
Subjective 2 Subjective: Is a 68-year-old male who is postoperative day 1 status post PEG tube placement. Patient is doing okay remains sedated now he has a trach in place no other issues overnight Vitals/I&O/Wt Last Vital Signs Temp 97.1 F L 12/02/23 04:15 Pulse 85 12/02/23 06:30 Resp 16 12/02/23 04:10 BP 131/85 12/02/23 06:30 Pulse Ox 94 12/02/23 06:30 O2 Del Method Mechanical Ventilation 12/02/23 04:01 O2 Flow Rate 28 12/01/23 19:54 FiO2 35 12/02/23 04:10 12/01/23 12/02/23 12/02/23 22:59 06:59 14:59 Intake Total 926.217 / 2100.524 9708.381 / 3024.208 65.059 / 65.059 Output Total 900 / 900 1600 / 2500 Balance 26.217 / 890.827 -366.619 / 524.208 65.059 / 65.059 Weight last 48 hrs Weight 189 lb 9.561 oz Weight 195 lb Weight 182 lb 15.739 oz Weight 187 lb 5 oz Physical Exam 2 GI: OTHER: Abdomen is soft nontender nondistended PEG tube is in place no evidence of redness or infection of the wound site. Urinary Catheter Management: Strange: Cath Placed During This Visit: yes Reason for Continuing Indwelling Catheter: Accurate Measurement of Urinary Output in Critically Ill Patients Urinary Catheter Date of Insertion: 11/21/23 Urinary Catheter Time of Insertion: 11:40 Data 12/02/23 04:28 12/02/23 04:28 Micro: Microbiology 11/30/23 19:10 Gram Stain - Final Sputum - Endotracheal Tube Aspirate A&P Assessment and plan (1) Small cell lung cancer: Qualifiers: Laterality: unspecified laterality Lung location: unspecified part of lung Qualified Code(s): C34.90 - Malignant neoplasm of unspecified part of unspecified bronchus or lung (2) Bacteremia due to Staphylococcus aureus: (3) Septic shock: (4) Adult failure to thrive: Plan Good progression after PEG tube placement. Patient is cleared to start tube feedings and medication administration to the PEG tube today. He can follow-up in my clinic as outpatient to ensure adequate progression 2 weeks after discharge, if he is going to a long-term care facility and no follow-up will be necessary. All other management per primary team Attestations 2 Medical Necessity Statement*: Per medical team Coding Level of Care Code Acute Code for Chg Fwd Diagnoses Small cell carcinoma of lung, unspecified laterality, unspecified part of lung C34.90 Laterality: unspecified laterality Lung location: unspecified part of lung Bacteremia due to Staphylococcus aureus R78.81; B95.61 Septic shock A41.9; R65.21 Adult failure to thrive R62.7
[2023-12-02] MEDS: budesonide 0.5 mg/2 mL Neb INHALATION ×2 (08:11→20:06)
[2023-12-02] MEDS: gabapentin 100 mg Capsule PO ×3 (08:59→20:24)
[2023-12-02] MEDS: zinc gluconate 50 mg Tablet PO (08:59)
[2023-12-02] MEDS: pantoprazole 40 mg SDV IVP ×2 (08:59→19:29)
[2023-12-02] MEDS: vancomycin 100 mg/1 mL Oral Syringe 125 MG PO ×4 (09:04→20:24)
[2023-12-02] MEDS: fentaNYL 1,000 MCG/100 ML BAG 10 MCG IV (09:19)
[2023-12-02] MEDS: LORazepam 2 mg/mL INJ 1 mL 0.5 MG IVP ×3 (13:07→21:33)
--- NOTE | 2023-12-02 14:12 | P.PN_ITS ---
Subjective 2 Subjective: History and physical reviewed. Patient sedated on vent. Got tracheostomy yesterday. Family not at bedside currently. Medications: Reviewed: Yes Vitals/I&O/Wt Last Vital Signs Temp 98.5 F 12/02/23 10:16 Pulse 88 12/02/23 14:00 Resp 24 H 12/02/23 13:51 BP 96/64 12/02/23 12:00 Pulse Ox 95 12/02/23 13:51 O2 Del Method Mechanical Ventilation 12/02/23 13:47 O2 Flow Rate 28 12/01/23 19:54 FiO2 35 12/02/23 13:51 12/01/23 12/02/23 12/02/23 22:59 06:59 14:59 Intake Total 926.217 / 3522.776 4516.381 / 3024.208 225.635 / 225.635 Output Total 900 / 900 1600 / 2500 250 / 250 Balance 26.217 / 890.827 -366.619 / 524.208 -24.365 / -24.365 Weight last 48 hrs Weight 87.5 kg Weight 86 kg Weight 88.451 kg Weight 83 kg Physical Exam 2 Narrative: General Exam no distress, sleeping Neck demonstrates trach Cardiovascular regular in rhythm Lungs coarse bilaterally Abdomen deficits demonstrates soft, bowel sounds, PEG noted exam demonstrates Strange Extremities no cyanosis, edema Urinary Catheter Management: Strange: Cath Placed During This Visit: yes Reason for Continuing Indwelling Catheter: Accurate Measurement of Urinary Output in Critically Ill Patients Urinary Catheter Date of Insertion: 11/21/23 Urinary Catheter Time of Insertion: 11:40 Data 12/02/23 04:28 12/02/23 04:28 Micro: Microbiology 11/30/23 19:10 Gram Stain - Final Sputum - Endotracheal Tube Aspirate Sputum Culture - Preliminary A&P Assessment and plan (1) Respiratory failure: Status post tracheostomy Epistaxis treated by right nares, packing device right nares Discussed with case management, peer to peer completed to allow him to go to LTAC to start rehabilitation at the same time as obtaining tracheostomy and PEG tube, but declined. Discussed also with his oncologist, discussed with his , overall has not had metastatic disease systemically noted on CT chest abdomen pelvis with contrast on 11/20. Known brain metastatic lesion, certainly in case this were to progress may be an difficult situation already having had second line chemotherapy, although it is unknown when the lesion may grow or additional lesions may develop. As per discussion with patient's to try to get him liberated from the ventilator they would like to proceed with tracheostomy and PEG here. PEG and tracheostomy performed yesterday Initiate tube feeds today per nutrition recommendations Needs long-term care Continue vancomycin and Zosyn Continue Decadron to 3 mg Completed remdesivir course. (2) Hypoglycemia: Improved with TPN. Monitor for risk of fluid overload. Resume tube feeds once PEG in place and operational. Blood glucose in the 60s on 11/29. (3) Acute hypoxic respiratory failure: As above. Most likely in combination of altered mental status along with pneumonitis as seen on CT. COVID-19 positive. Urine Legionella bacterial antigen negative. Sputum culture, blood culture Acinetobacter, haemophilus influenza. Negative MRSA swab. (4) DVT (deep venous thrombosis): Once bleeding controlled, consider if at some point may be safe to resume anticoagulation. Reassess tomorrow Status post IVC filter. Platelets improving. PTT normalized. CT of the head reviewed. 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 (5) Septic shock: Resolved. With sedation intermittently blood pressure soft, intermittently requiring low rate pressor. Maintain MAP over 65. (6) COVID-19: Isolation discontinued as it has been more than 10 days, he has not been febrile, respiratory failure protracted but with some persistent damage secondary to COVID, also other reasons including aspiration, possibly superimposed bacterial pneumonia. Can discontinue dexamethasone, although currently I cannot access orders as they are locked. Completed remdesivir. Complicated by DVT. Status post IVC filter, intolerant of anticoagulation. Hypoxia secondary to COVID-19 pneumonia: Severe disease. Oxygen supplementation keeping saturation over 88%. DuoNeb every 6 hour, budesonide twice daily Last echocardiogram from March showed an EF of 60 to 65% without regional wall motion bradycardia, mild TR. (7) Elevated troponin: Continue low-dose aspirin. Consider nonemergent stress test. Cannot rule out non-ST elevation ME. Concerns for type II ME. Continues with aspirin. Unable to tolerate anticoagulation. Echocardiogram to monitor EF and rule out regional wall motion abnormality. Appreciate A1c, lipid panel. Continue with home dose of aspirin 81 mg daily. (8) C. difficile colitis: Continue oral vancomycin 125 mg. Colitis seen on CT abdomen/pelvis. (9) Acute metabolic encephalopathy: Overall encephalopathy had improved. He has been alert when off sedation, following directions, but has been getting weaker. Most likely in setting of severe infection/COVID-19 along with high doses of gabapentin and oxycodone. Continue to monitor. Currently sedated. Will plan for daily sedation medication. 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 Qualifiers: Laterality: unspecified laterality Lung location: unspecified part of lung Qualified Code(s): C34.90 - Malignant neoplasm of unspecified part of unspecified bronchus or lung (12) Metastasis to brain: (13) MRSA nasal colonization: (14) Diarrhea: Plan Chronic medication including Xanax as needed, sertraline. gabapentin at a lower dose to avoid withdrawals at 100 mg 3 times daily. CODE STATUS: will be the DPOA. Full code. Attestations 2 Medical Necessity Statement*: Needs continued hospitalization secondary respiratory failure requiring tracheostomy, and ultimately PEG. Will need care at long-term care facility for potential improvement. Critical Care Time: The high probability of a clinically significant, sudden or life threatening deterioration of the patient's [pulmonary, renal, infectious disease] system(s) required my full and direct attention, intervention and personal management. The critical care time is as shown. This time is in addition to time spent performing any reported procedures but includes the following: [x] Data and vital sign review and interpretation [x] Patient assessment, examination and intervention [x] Documentation [x] Medication orders and management Critical Care Time (min): 44 Coding Level of Care Code Acute Code for Chg Fwd Diagnoses Respiratory failure J96.90 Hypoglycemia E16.2 Acute hypoxic respiratory failure J96.01 DVT (deep venous thrombosis) I82.409 Septic shock A41.9; R65.21 COVID-19 U07.1 Elevated troponin R79.89 C. difficile colitis A04.72 Acute metabolic encephalopathy G93.41 Port-A-Cath in place Z95.828 Small cell carcinoma of lung, unspecified laterality, unspecified part of lung C34.90 Laterality: unspecified laterality Lung location: unspecified part of lung Metastasis to brain C79.31 MRSA nasal colonization Z22.322 Diarrhea R19.7 Time Spent (min) 44
[2023-12-02] MEDS: dexamethasone 4 mg/mL INJ 3 MG IVP (14:51)
[2023-12-02] MEDS: HYDROmorphone 1 mg/mL INJ 1 mL 0.5 MG IVP ×2 (14:58→19:23)
--- NOTE | 2023-12-02 15:27 | PC.NURSE ---
Addendum entered by Adelaide Allen RN 12/02/23 16:41: Witnessed Waste Original Note: This nurse along SILAS Bryson waisted: Fentanyl- 48 mls Propofol-47 mls
--- NOTE | 2023-12-02 16:35 | PC.NURSE ---
Addendum entered by Gage Hester RN 12/02/23 17:03: Doctor Prerna clarified that he wanted the feedings to start at 20 mls/hr then go up 10mls/hr until goal of 40mls/hr is achieved. Start tapering off TPN per protocol. Original Note: Jevity 1.5 at 40 ml/hr with 120 mls of free water flushes every 4 hours were started.
[2023-12-02] MEDS: vancomycin 1,250 MG/250 ML PIGGYBACK 200 MG IV (17:29)
[2023-12-02] MEDS: acetaminophen 325 mg Tablet 650 MG PO (20:24)
--- NOTE | 2023-12-02 20:44 | PC.NURSE ---
Tube feeding Patient receiving Jevity 1.5
[2023-12-03] VITALS (87 sets, daily range): BP systolic 79–137; BP diastolic 55–87; PULSE 81–115; RESP 20–28; TEMP 36.8–38.5; O2SAT 91–99; BMI 30.4
[2023-12-03] MEDS: HYDROmorphone 1 mg/mL INJ 1 mL 0.5 MG IVP ×2 (00:24→04:31)
[2023-12-03] MEDS: ipratropium-albuterol 3 mL Neb INHALATION ×4 (02:00→20:03)
[2023-12-03] MEDS: LORazepam 2 mg/mL INJ 1 mL 0.5 MG IVP (02:16)
[2023-12-03] MEDS: AA DEX IV (03:19)
[2023-12-03] MEDS: LYTES IV (03:19)
[2023-12-03] MEDS: nystatin powder 15 gm Btl 1 APPLIC TOPICAL ×2 (04:35→17:33)
[2023-12-03] MEDS: lanolin oint 7 gm 1 APPLIC TOPICAL (04:36)
[2023-12-03] MEDS: chlorhexidine gluconate 4% Btl 118 mL 1 APPLIC TOPICAL (04:36)
[2023-12-03 04:39] LABS: Basophils % 0.1 %; Eosinophils % 0.1 %; Hematocrit 28.4 % (37-53); Lymphocytes # 0.9 10^3/uL (0.8-4.8); Mean Corpuscular HGB Conc 31.3 g/dL (30-55); Mean Corpuscular Hemoglobin 32.6 pg (27-33); Mean Platelet Volume 12.3 fL (7.4-10.4); Monocytes # 0.1 10^3/uL (0.2-0.9); Monocytes % 1.9 %; Neutrophils # 6.26 10^3/uL (1.8-7.7); Neutrophils % 84.4 %; Nucleated Red Blood Cells % 0.4 %; Platelet Count 126 10^3/cmm (157-399); Red Blood Count 2.73 10^6/uL (3.85-5.65); Red Cell Distribution Width 16.3 % (12.1-15.1); White Blood Count 7.42 10^3/uL (3.29-11.43)
[2023-12-03 05:08] LABS: Anion Gap 16.2 (5-19); Blood Urea Nitrogen 39 mg/dL (8-23); Calcium 9.1 mg/dL (8.5-10.5); Carbon Dioxide 21 mmol/L (22-29); Chloride 104 mmol/L (98-107); Creatinine Clr Calc Pharmacy 91.5358; Glomerular Filtration Rate 213.3 mL/min (90-130); Glucose 117 mg/dL (65-115); Osmolality Calculated 294 mOsm/kg (285-295); Potassium 4.2 mmol/L (3.5-5.1); Sodium 137 mmol/L (136-145)
[2023-12-03] MEDS: aspirin 81 mg EC Tablet PO (05:46)
[2023-12-03] MEDS: pantoprazole 40 mg SDV IVP ×2 (08:10→19:36)
[2023-12-03] MEDS: piperacillin-tazobactam 3.375 GM in sodium chloride 0.9% (plus) 50 ML IV (08:10)
[2023-12-03 08:40] LABS: Glucose Point of Care 97 mg/dL (70-110)
[2023-12-03] MEDS: budesonide 0.5 mg/2 mL Neb INHALATION ×2 (08:49→20:03)
--- NOTE | 2023-12-03 09:31 | PC.NURSE ---
Gabapentin was held by Doctor Graff due to patient being unresponsive at the moment.
--- NOTE | 2023-12-03 09:33 | CT_ITS ---
WS: [id number] CT HEAD NONCONTRAST HISTORY: unresponsive TECHNIQUE: Contiguous axial imaging performed through the brain in 2.0 mm imaging. Bone and soft tiss ue windows. Sagittal and coronal reformats reviewed. All CT scans at [facility] use at least one of these dose optimization techniques: automated exposure control; mA and/or kV adjustment per pa tient size (includes targeted exams where dose is matched to clinical indication); or iterative recon struction. DLP: 1199.28 mGy.cm COMPARISON: 11/25/2023 No acute intracranial hemorrhage, midline shift or mass effect. Mild symmetric atrophy with moderate decreased attenuation in the white matter. Diffuse decreased att enuation from small vessel disease. No sulcal effacement. Ventricles: Normal size with no hydrocephalus. No inferior displacement of the cerebellar tonsils. Paranasal sinuses: New since the prior CT or air-fluid levels increased fluid throughout the sinus ca vities. May be related to intubation. Mastoid air cells: Well pneumatized. Calvarium and scalp: Skull is intact with no soft tissue edema or swelling. CT/CT head wo con* [id number] IMPRESSION: 1. No acute intracranial hemorrhage or edema. 2. Diffuse moderate decreased attenuation within the white matter from small v essel disease. 3. New diffuse fluid in the paranasal sinuses. Probably due to the intubation.
[2023-12-03] MEDS: zinc gluconate 50 mg Tablet PO (09:41)
[2023-12-03] MEDS: vancomycin 100 mg/1 mL Oral Syringe 125 MG PO ×4 (09:41→20:41)
[2023-12-03] MEDS: vancomycin 1,250 MG/250 ML PIGGYBACK 200 MG IV (09:41)
[2023-12-03 09:54] LABS: ABG PCO2 28.4 mmHg (35-45); ABG PH Result 7.48 (7.35-7.45); Blood Gas Allen Test Pos; Blood Gas Sample Type Arterial; Carboxyhemoglobin 1.5 %THgb (0.4-20.1); HCO3 ABG 20.9 mmol/L (22-26); HGB O2 Sat 92.8 % (95-100); Ionized Calcium Level - ABG 1.3 mmol/L (1.1-1.4); Methemoglobin 0.2 % (0.4-1.5); Oxygen Saturation ABG 94.4; PO2 ABG 66.2 mmHg (80.0-100.0); Potassium Level - ABG 3.8 mmol/L (3.5-5.0); Total Hemoglobin 9.1 g/dL (14-18)
[2023-12-03 09:55] LABS: Alveolar-Arterial Oxygen Gradi 19.1 mmHg (5-10); Blood Gas Operator Identificat MONRO; Blood Gas Sample Site Radial, left; Oxygen Device VENT; PO2 FiO2 Ratio Arterial Blood 189
[2023-12-03] MEDS: acetaminophen 325 mg Tablet 650 MG PO (11:26)
[2023-12-03] MEDS: levETIRAcetam 1,000 MG/100 ML PREMIX 400 MG IV (12:34)
--- NOTE | 2023-12-03 12:41 | P.PN_ITS ---
Subjective 2 Subjective: Patient tried to open his eyes with stimulus. He has been much more lethargic today. At 1 point he was unresponsive. Did been quite a bit of time since his last narcotic and benzodiazepine for as needed use. Family is at bedside and concerned. Medications: Reviewed: Yes Vitals/I&O/Wt Last Vital Signs Temp 101.3 F H 12/03/23 12:15 Pulse 106 H 12/03/23 12:15 Resp 26 H 12/03/23 11:36 BP 93/63 12/03/23 12:15 Pulse Ox 96 12/03/23 12:15 O2 Del Method Mechanical Ventilation 12/03/23 10:30 O2 Flow Rate 28 12/01/23 19:54 FiO2 35 12/03/23 11:36 12/02/23 12/03/23 12/03/23 22:59 06:59 14:59 Intake Total 455.75 / 5457.453 3923.267 / 3074.652 Output Total 650 / 900 1100 / 2000 75 / 75 Balance -194.25 / 831.385 243.267 / 1074.652 -75 / -75 Weight last 48 hrs Weight 88 kg Weight 86.5 kg Weight 87.5 kg Weight 86 kg Weight 88.451 kg Physical Exam 2 Narrative: General Exam difficult to awaken, raises eyebrows. Could not get him to cooperate with moving any extremities. Fever noted. Neck demonstrates trach Cardiovascular regular in rhythm Lungs coarse bilaterally Abdomen deficits demonstrates soft, bowel sounds, PEG noted exam demonstrates Strange Extremities no cyanosis, edema Urinary Catheter Management: Strange: Cath Placed During This Visit: yes Reason for Continuing Indwelling Catheter: Accurate Measurement of Urinary Output in Critically Ill Patients Urinary Catheter Date of Insertion: 11/21/23 Urinary Catheter Time of Insertion: 11:40 Data 12/03/23 04:02 12/03/23 04:02 Micro: Microbiology 11/30/23 19:10 Gram Stain - Final Sputum - Endotracheal Tube Aspirate Sputum Culture - Final A&P Assessment and plan (1) Respiratory failure: Status post tracheostomy Epistaxis treated by right nares, packing device right nares Discussed with case management, peer to peer completed to allow him to go to LTAC to start rehabilitation at the same time as obtaining tracheostomy and PEG tube, but declined. Discussed also with his oncologist, discussed with his , overall has not had metastatic disease systemically noted on CT chest abdomen pelvis with contrast on 11/20. Known brain metastatic lesion, certainly in case this were to progress may be an difficult situation already having had second line chemotherapy, although it is unknown when the lesion may grow or additional lesions may develop. As per discussion with patient's to try to get him liberated from the ventilator they would like to proceed with tracheostomy and PEG here. PEG and tracheostomy performed yesterday Initiate tube feeds today per nutrition recommendations Needs long-term care Now with fever. Continue vancomycin. Change Zosyn to meropenem. Obtain blood cultures, urine culture. Obtain chest x-ray. Continue Decadron to 3 mg Completed remdesivir course. (2) Hypoglycemia: Improved with TPN. Now off and on tube feeds. Glucose stable (3) Acute hypoxic respiratory failure: As above. Most likely in combination of altered mental status along with pneumonitis as seen on CT. COVID-19 positive. Urine Legionella bacterial antigen negative. Sputum culture, blood culture Acinetobacter, haemophilus influenza. Negative MRSA swab. Fever. Note above. (4) DVT (deep venous thrombosis): Has still ooze some from his nasal bleeding. Will visit with ENT if anticoagulation can be resumed tomorrow. Status post IVC filter. Platelets improving. PTT normalized. CT of the head reviewed. 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 (5) Septic shock: Resolved. Off pressors Has had recurrent fever, broaden coverage to meropenem. Reculture urine and blood. (6) COVID-19: Isolation discontinued as it has been more than 10 days, he has not been febrile, respiratory failure protracted but with some persistent damage secondary to COVID, also other reasons including aspiration, possibly superimposed bacterial pneumonia. Will go ahead and discontinue dexamethasone completely. Completed remdesivir. Complicated by DVT. Status post IVC filter, intolerant of anticoagulation. Hypoxia secondary to COVID-19 pneumonia: Severe disease. Oxygen supplementation keeping saturation over 88%. DuoNeb every 6 hour, budesonide twice daily Last echocardiogram from March showed an EF of 60 to 65% without regional wall motion bradycardia, mild TR. (7) Elevated troponin: Continue low-dose aspirin. Consider nonemergent stress test. Cannot rule out non-ST elevation NH. Concerns for type II NH. Continues with aspirin. Unable to tolerate anticoagulation. Echo showed preserved EF Appreciate A1c, lipid panel. Continue with home dose of aspirin 81 mg daily. (8) C. difficile colitis: Continue oral vancomycin 125 mg[address] Colitis seen on CT abdomen/pelvis. (9) Acute metabolic encephalopathy: Overall encephalopathy had improved. He has been alert when off sedation, following directions, but has been getting weaker. Most likely in setting of severe infection/COVID-19 along with high doses of gabapentin and oxycodone. Continue to monitor. Currently sedated. Will plan for daily sedation medication. 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 Qualifiers: Laterality: unspecified laterality Lung location: unspecified part of lung Qualified Code(s): C34.90 - Malignant neoplasm of unspecified part of unspecified bronchus or lung (12) Metastasis to brain: CT performed demonstrating no bleed today secondary to decreased responsiveness (13) MRSA nasal colonization: (14) Diarrhea: Plan Unresponsive. had concern she had seen a little shaking/tremor of head. Keppra initiated. No generalized shaking was noted. Note that he has a metastatic focus. CT showed no bleed or obvious new abnormality. Glucose normal. Chronic medication including Xanax as needed, sertraline. gabapentin at a lower dose to avoid withdrawals at 100 mg 3 times daily. CODE STATUS: will be the DPOA. Full code. will be discussing with family whether he should be no CPR Attestations 2 Medical Necessity Statement*: Needs continued hospitalization secondary to recurrent fever, respiratory failure requiring tracheostomy, PEG tube, etc. Critical Care Time: The high probability of a clinically significant, sudden or life threatening deterioration of the patient's [pulmonary, cardiac, infectious disease, neurologic] system(s) required my full and direct attention, intervention and personal management. The critical care time is as shown. This time is in addition to time spent performing any reported procedures but includes the following: [x] Data and vital sign review and interpretation [x] Patient assessment, examination and intervention [x] Documentation [x] Medication orders and management Critical Care Time (min): 35 Coding Level of Care Code Critical Care >/= 30 minutes Critical care time (in minutes): 35 The high probability of a clinically significant, sudden or life threatening deterioration, as referenced in this documentation, required my full and direct attention, intervention and personal management. The critical care time shown is in addition to time spent performing any reported separately billable procedures and includes the following: [x] Data and vital sign review and interpretation [x ] Patient assessment, examination and intervention [x] Medication orders and management [x] Patient/Family updates as able [x] Care Coordination and Documentation. Diagnoses Respiratory failure J96.90 Hypoglycemia E16.2 Acute hypoxic respiratory failure J96.01 DVT (deep venous thrombosis) I82.409 Septic shock A41.9; R65.21 COVID-19 U07.1 Elevated troponin R79.89 C. difficile colitis A04.72 Acute metabolic encephalopathy G93.41 Port-A-Cath in place Z95.828 Small cell carcinoma of lung, unspecified laterality, unspecified part of lung C34.90 Laterality: unspecified laterality Lung location: unspecified part of lung Metastasis to brain C79.31 MRSA nasal colonization Z22.322 Diarrhea R19.7
--- NOTE | 2023-12-03 12:44 | XRR_ITS ---
PROCEDURE INFORMATION: Exam: XR Chest Exam date and time: 12/03/2023 1:04 PM Age: 68 years old Clinical indication: Fever TECHNIQUE: Imaging protocol: Radiologic exam of the chest. Views: 1 view. COMPARISON: CR (CHEST, ) 11/30/2023 7:16 PM FINDINGS: Tubes, catheters and devices: PICC line terminates near the atrial caval junction. Tracheostomy tube near the intra clavicular level. Left infusion port terminates in the SVC. Lungs: Right perihilar and left lower lobe pulmonary infiltrates. Pleural spaces: Unremarkable. No pleural effusion. No pneumothorax. Heart/Mediastinum: Unremarkable. No cardiomegaly. Bones/joints: Unremarkable. XR/XR chest 1V portable [id number] IMPRESSION: Multifocal pneumonia.
[2023-12-03] MEDS: meropenem 1,000 mg SDV 1000 MG IVP ×2 (13:27→20:36)
[2023-12-03] MEDS: sodium chloride 0.9% 250 ML IV (13:27)
--- NOTE | 2023-12-03 13:42 | PC.SOCIAL ---
IMM Update pg 2 of IMM updated and reviewed w/ patient. Copy provided and copy dated, initialed and placed in chart.
[2023-12-03 13:44] LABS: Bacteria Urine TRACE /hpf; Bilirubin Urine Neg (Negative); Blood Urine Neg (Negative); Glucose Urine UA Norm (Normal); Ketones Urine Negative (Negative); Leukocyte Esterase Urine Trace (Negative); Nitrate Urine Negative (Negative); Protein Urine Neg (Negative); RBC Urine 0-4 /hpf (0-2); Sperm Urine 4+ /hpf; Squamous Epithelial Cell Urine 0-4 /hpf (0-5); Urine Appearance Cloudy (CLEAR); Urine Color Yellow (Yellow); Urobilinogen Urine Norm (Negative); pH Urine 5 (5-7)
[2023-12-03 13:45] LABS: Add Urine Culture? No
[2023-12-03] MEDS: alteplase 1 mg/mL SDV 2 mL 2 MG INTRACATH (14:51)
[2023-12-03] MEDS: sodium chloride 0.9% 1,000 ML 50 ML IV (14:52)
--- NOTE | 2023-12-03 14:59 | PC.NURSE ---
Dr. Graff ordered to pull the right IJ central line after surgery.
--- NOTE | 2023-12-03 17:32 | P.PN_ITS ---
Subjective 2 Subjective: 68 yo wm who is POD #2 s/p tracheotomy f or respiratory failure and is also day #2 of nasal packing for epistaxis. The patient is reportedly doing well and there are no c/o. Vitals/I&O/Wt Last Vital Signs Temp 100.2 F H 12/03/23 13:45 Pulse 107 H 12/03/23 16:00 Resp 23 H 12/03/23 16:41 BP 86/60 12/03/23 16:00 Pulse Ox 96 12/03/23 17:00 O2 Del Method Mechanical Ventilation 12/03/23 17:00 O2 Flow Rate 28 12/01/23 19:54 FiO2 35 12/03/23 17:00 12/03/23 12/03/23 12/03/23 06:59 14:59 22:59 Intake Total 1343.267 / 3074.652 Output Total 1100 / 1999 75 / 75 1700 / 1775 Balance 243.267 / 1074.652 -75 / -75 -1700 / -1775 Weight last 48 hrs Weight 88 kg Weight 86.5 kg Weight 87.5 kg Weight 86 kg Physical Exam 2 Const: GENERAL APPEARANCE: patient mechanically ventilated HENMT: COMMON NORMALS: normocephalic and atraumatic HEAD & SCALP: n ormocephalic and atraumatic FACE & SINUS: normal facial exam Neck/C-Spine: GENERAL: Yes tracheostomy present (No erythema or discharge present. ) Urinary Catheter Management: Strange: Cath Placed During This Visit: yes Reason for Continuing Indwelling Catheter: Accurate Measurement of Urinary Output in Critically Ill Patients Urinary Catheter Date of Insertion: 11/21/23 Urinary Catheter Time of Insertion: 11:40 Data 12/03/23 04:02 12/03/23 04:02 Micro: Microbiology 12/03/23 16:33 Blood Culture - Preliminary Blood SPECIMEN COLLECTED 12/03/23 13:31 Blood Culture - Preliminary Blood SPECIMEN COLLECTED 11/30/23 19:10 Gram Stain - Final Sputum - Endotracheal Tube Aspirate Sputum Culture - Final A&P Assessment and plan (1) Epistaxis: Impression: Stable with nasal packing in place\ Plan: - I will remove with the first trach change on POD 5-7 - I will make further recommendations after packing removal (2) Respiratory failure: Impression: Stable s/p tracheotomy Plan: - Continue trach care - I will perform the first trach change on POD #5-7 Attestations 2 Medical Necessity Statement*: I was consulted to assist with management of the patient's respiratory failure and epistaxis. Coding Level of Care Code Acute Code for Chg Fwd Diagnoses Epistaxis R04.0 Respiratory failure J96.90
[2023-12-04] VITALS (40 sets, daily range): BP systolic 88–119; BP diastolic 48–76; PULSE 89–110; RESP 16–32; TEMP 36.6–38; O2SAT 90–100
[2023-12-04] MEDS: levETIRAcetam 500 MG/100 ML PREMIX 400 MG IV ×2 (00:42→13:30)
[2023-12-04] MEDS: ipratropium-albuterol 3 mL Neb INHALATION ×4 (02:28→19:40)
[2023-12-04] MEDS: chlorhexidine gluconate 4% Btl 118 mL 1 APPLIC TOPICAL (03:45)
[2023-12-04] MEDS: lanolin oint 7 gm 1 APPLIC TOPICAL (03:45)
[2023-12-04] MEDS: vancomycin 1,250 MG/250 ML PIGGYBACK 200 MG IV ×2 (04:10→21:02)
[2023-12-04] MEDS: norepinephrine 4 MG/250 ML BAG 7.5 MG IV (04:33)
[2023-12-04] MEDS: meropenem 1,000 mg SDV 1000 MG IVP ×3 (04:34→20:30)
[2023-12-04 04:58] LABS: Basophils % 0.4 %; Eosinophils % 0.2 %; Lymphocytes # 0.6 10^3/uL (0.8-4.8); Lymphocytes % 11.8 %; Mean Corpuscular HGB Conc 31.3 g/dL (30-55); Mean Corpuscular Hemoglobin 32.5 pg (27-33); Mean Corpuscular Volume 103.9 fl (82-101); Mean Platelet Volume 11.6 fL (7.4-10.4); Monocytes # 0.2 10^3/uL (0.2-0.9); Monocytes % 3.5 %; Neutrophils # 4.46 10^3/uL (1.8-7.7); Neutrophils % 82.1 %; Nucleated Red Blood Cells % 0 %; Platelet Count 135 10^3/cmm (157-399); Red Blood Count 2.31 10^6/uL (3.85-5.65); Red Cell Distribution Width 16.6 % (12.1-15.1); White Blood Count 5.43 10^3/uL (3.29-11.43)
[2023-12-04 05:19] LABS: Alanine Aminotransferase 42 U/L (0-41); Albumin Level 2.8 g/dL (3.5-5.2); Alkaline Phosphatase 104 U/L (40-130); Anion Gap 15.3 (5-19); Aspartate Amino Transferase 30 U/L (0-40); Blood Urea Nitrogen 19 mg/dL (8-23); Calcium 8.2 mg/dL (8.5-10.5); Carbon Dioxide 20 mmol/L (22-29); Chloride 110 mmol/L (98-107); Creatinine Clr Calc Pharmacy 92.2753; Globulin 2.5 g/dL (1.3-4.6); Glomerular Filtration Rate 297.3 mL/min (90-130); Glucose 129 mg/dL (65-115); Osmolality Calculated 298 mOsm/kg (285-295); Potassium 3.3 mmol/L (3.5-5.1); Sodium 142 mmol/L (136-145); Total Bilirubin 0.5 mg/dL (0.15-1.2); Total Protein 5.3 g/dL (6.6-8.7)
[2023-12-04] MEDS: aspirin 81 mg EC Tablet PO (05:57)
--- NOTE | 2023-12-04 05:59 | P.PN_ITS ---
Subjective 2 Subjective: 68 yo wm who is POD #1 s/p tracheotomy a nd nasal packing placement. The patient is sedated and mechanically ventilated. There are no reported problems from this standpiont. Medications: Reviewed: Yes Vitals/I&O/Wt Last Vital Signs Temp 99.0 F 12/04/23 04:00 Pulse 101 H 12/04/23 05:00 Resp 28 H 12/04/23 04:00 BP 93/62 12/04/23 05:00 Pulse Ox 97 12/04/23 04:00 O2 Del Method Mechanical Ventilation 12/04/23 04:00 O2 Flow Rate 28 12/01/23 19:54 FiO2 35 12/04/23 04:00 12/03/23 12/03/23 12/04/23 14:59 22:59 06:59 Intake Total 2452 / 2452 930 / 3382 Output Total 75 / 75 1700 / 1775 825 / 2600 Balance -75 / -75 752 / 677 105 / 782 Weight last 48 hrs Weight 88 kg Weight 86.5 kg Weight 87.5 kg Physical Exam 2 Const: GENERAL APPEARANCE: patient mechanically ventilated HENMT: COMMON NORMALS: normocephalic and atraumatic HEAD & SCALP: n ormocephalic and atraumatic NOSE: Epistaxis present (Packing in place without bleeding) Neck/C-Spine: GENERAL: Yes tracheostomy present (No erythema or discharge. ) Urinary Catheter Management: Strange: Cath Placed During This Visit: yes Reason for Continuing Indwelling Catheter: Accurate Measurement of Urinary Output in Critically Ill Patients Urinary Catheter Date of Insertion: 11/21/23 Urinary Catheter Time of Insertion: 11:40 Data 12/04/23 04:20 12/04/23 04:20 Micro: Microbiology 12/03/23 16:33 Blood Culture - Preliminary Blood SPECIMEN COLLECTED 12/03/23 13:31 Blood Culture - Preliminary Blood SPECIMEN COLLECTED 11/30/23 19:10 Gram Stain - Final Sputum - Endotracheal Tube Aspirate Sputum Culture - Final A&P Assessment and plan (1) Respiratory failure: Impression: POD #3 s/p tracheotomy doing well from this standpoint Plan: - Continue trach care - Anticipate first trach change on POD 5-7 - Notify Dr. Olvera for any problems (2) Epistaxis: Impression: Well controlled with nasal packing Plan: - Packing removal with trach change as above - I will make further recommendations once the packing has been removed Attestations 2 Medical Necessity Statement*: I was consulted to assist in airway and epistaxis management Coding Level of Care Code Acute Code for Chg Fwd Diagnoses Respiratory failure J96.90 Epistaxis R04.0
--- NOTE | 2023-12-04 06:57 | P.PN_ITS ---
Documented by User: Vanessa StefanyMAYNOR rudolph STDPATY 12/04/23 11:46 Subjective 2 Subjective: Patient responsiveness has improved as he did open his eyes this morning to stimulus. Patient was put back on Levophed last night at 2mEq and did not receive any pain/sedating medications last night due to continued low responsive state. EKG this morning showed longer MT interval with PACs, possibly contributed to potassium being 3.3. Will check Mg level today as it may be contributory. Hemoglobin dropped to 7.50, will monitor and recheck around 2pm today. Urine and blood cultures pending, possibly will repeat MRSA PCR to determine if should continue vanc. Will monitor for bowel movement and abdominal distended. Possibly reduce to stop IV fluids to prevent overload. No fever noted today. Vitals/I&O/Wt Last Vital Signs Temp 99.0 F 12/04/23 04:00 Pulse 102 H 12/04/23 06:00 Resp 21 H 12/04/23 06:00 BP 119/66 12/04/23 06:00 Pulse Ox 96 12/04/23 06:00 O2 Del Method Mechanical Ventilation 12/04/23 06:00 O2 Flow Rate 28 12/01/23 19:54 FiO2 35 12/04/23 06:00 12/03/23 12/03/23 12/04/23 14:59 22:59 06:59 Intake Total 2452 / 2452 930 / 3382 Output Total 75 / 75 1700 / 1775 825 / 2600 Balance -75 / -75 752 / 677 105 / 782 Weight last 48 hrs Weight 94 lb 8 oz Weight 194 lb 0.108 oz Weight 190 lb 11.198 oz Weight 192 lb 14.472 oz Physical Exam 2 Const: OTHER: On Ventilator via trach. Slightly responsive to stimulus. Opened eyes and raised eyebrows. Neck/C-Spine: OTHER: Trach noted. Resp: OTHER: Bilateral coarse lung sounds bilaterally Cardio: OTHER: Normal heart rhythm GI: OTHER: Soft, nondistended with normal bowel sounds. PEG tube noted. : OTHER: Catheter noted Extremity: OTHER: No edema or cyanosis Urinary Catheter Management: Strange: Cath Placed During This Visit: yes Reason for Continuing Indwelling Catheter: Accurate Measurement of Urinary Output in Critically Ill Patients Urinary Catheter Date of Insertion: 11/21/23 Urinary Catheter Time of Insertion: 11:40 Data 12/04/23 04:20 12/04/23 04:20 Micro: Microbiology 12/03/23 16:33 Blood Culture - Preliminary Blood SPECIMEN COLLECTED 12/03/23 13:31 Blood Culture - Preliminary Blood SPECIMEN COLLECTED 11/30/23 19:10 Gram Stain - Final Sputum - Endotracheal Tube Aspirate Sputum Culture - Final A&P Assessment and plan (1) Hypokalemia: Potassium dropped to 3.3 Start on 40mEq KCl over 4 hours Check Magnesium levels (2) Acute hypoxic respiratory failure: (3) Small cell lung cancer: Qualifiers: Laterality: unspecified laterality Lung location: unspecified part of lung Qualified Code(s): C34.90 - Malignant neoplasm of unspecified part of unspecified bronchus or lung (4) Anemia: (5) Septic shock: (6) Epistaxis: (7) DVT (deep venous thrombosis): (8) COVID-19: (9) C. difficile colitis: Coding Level of Care Code Critical Care >/= 30 minutes Diagnoses Hypokalemia E87.6 Acute hypoxic respiratory failure J96.01 Small cell carcinoma of lung, unspecified laterality, unspecified part of lung C34.90 Laterality: unspecified laterality Lung location: unspecified part of lung Anemia D64.9 Septic shock A41.9; R65.21 Epistaxis R04.0 DVT (deep venous thrombosis) I82.409 COVID-19 U07.1 C. difficile colitis A04.72 Documented by User: Montrell Graff MD 12/04/23 11:52 Subjective 2 Subjective: Patient responsiveness has improved as he did open his eyes this morning to stimulus. Patient was put back on Levophed last night at 2mEq and did not receive any pain/sedating medications last night due to continued low responsive state. EKG this morning showed longer MT interval with PACs, possibly contributed to potassium being 3.3. Will check Mg level today as it may be contributory. Hemoglobin dropped to 7.50, will monitor and recheck around 2pm today. Urine and blood cultures pending, possibly will repeat MRSA PCR to determine if should continue vanc. Will monitor for bowel movement and abdominal distended. Possibly reduce to stop IV fluids to prevent overload. No fever noted today. Did have fever yesterday. Antibiotics expanded from Zosyn to meropenem. Vancomycin continue Medications: Reviewed: Yes Physical Exam 2 Urinary Catheter Management: Strange: Cath Placed During This Visit: yes Data 12/04/23 04:20 12/04/23 04:20 A&P Assessment and plan (1) Hypokalemia: Potassium dropped to 3.3 Start on 40mEq KCl for gastric tube Check Magnesium levels. This has been checked and normal (2) Acute hypoxic respiratory failure: Still requiring significant ventilator support. Have not been able to move to just pressure support. Currently on a PEEP of 5, FiO2 of 35% a tidal volume of 400. (3) Small cell lung cancer: With history of metastatic focus and brain on previous MRI. CT scan yesterday did not show any obvious edema or mass. Qualifiers: Laterality: unspecified laterality Lung location: unspecified part of lung Qualified Code(s): C34.90 - Malignant neoplasm of unspecified part of unspecified bronchus or lung (4) Anemia: Patient's hemoglobin has drifted down. Plan on rechecking this afternoon. No obvious blood loss other than occasional oozing from his nasopharynx with his recent tracheostomy and nasal packing. Still not a candidate to start anticoagulation. (5) Septic shock: Had resolved, but has had some recurrence of fever. Blood pressure has been somewhat soft and norepinephrine has been restarted at 2. Will try to wean off. Antibiotics were expanded to meropenem and vancomycin This was secondary to multifocal pneumonia Will recheck an MRSA PCR, and sputum culture. Cultures all repeated and pending (6) Epistaxis: See above (7) DVT (deep venous thrombosis): Patient with history of DVT on this hospital stay He is not a candidate for anticoagulation currently but will start when appropriate He did have a vena cava filter placed. (8) COVID-19: He is completed treatment with remdesivir, dexamethasone and is off isolation. Monitor closely blood pressure, electrolytes as he is not currently on steroids. (9) C. difficile colitis: Continue vancomycin p.o. Plan Status post PEG, trach Global weakness this is multifactorial. This is likely secondary to his COVID, sepsis, respiratory failure, etc. He is a candidate for long-term care as his cancer currently does not appear to be driving his current illness. Without long-term care, rehab, and management I believe his diagnosis is dismal. Attestations 2 Medical Necessity Statement*: Needs continued hospitalization in the ICU secondary to respiratory failure requiring ventilator support Critical Care Time: The high probability of a clinically significant, sudden or life threatening deterioration of the patient's [pulmonary, renal, infectious disease] system(s) required my full and direct attention, intervention and personal management. The critical care time is as shown. This time is in addition to time spent performing any reported procedures but includes the following: [x] Data and vital sign review and interpretation [x] Patient assessment, examination and intervention [x] Documentation [x] Medication orders and management Critical Care Time (min): 37 Coding Level of Care Code Critical Care >/= 30 minutes Critical care time (in minutes): 37 The high probability of a clinically significant, sudden or life threatening deterioration, as referenced in this documentation, required my full and direct attention, intervention and personal management. The critical care time shown is in addition to time spent performing any reported separately billable procedures and includes the following: [x] Data and vital sign review and interpretation [x ] Patient assessment, examination and intervention [x] Medication orders and management [x] Patient/Family updates as able [x] Care Coordination and Documentation. Diagnoses Hypokalemia E87.6 Acute hypoxic respiratory failure J96.01 Small cell carcinoma of lung, unspecified laterality, unspecified part of lung C34.90 Laterality: unspecified laterality Lung location: unspecified part of lung Anemia D64.9 Septic shock A41.9; R65.21 Epistaxis R04.0 DVT (deep venous thrombosis) I82.409 COVID-19 U07.1 C. difficile colitis A04.72
[2023-12-04] MEDS: pantoprazole 40 mg SDV IVP ×2 (07:37→20:30)
[2023-12-04] MEDS: potassium chloride oral liq 20 mEq/15 mL UDC 40 MEQ PO (07:37)
[2023-12-04 08:08] LABS: Magnesium 1.7 mg/dL (1.7-2.3)
[2023-12-04] MEDS: budesonide 0.5 mg/2 mL Neb INHALATION ×2 (08:29→19:40)
[2023-12-04] MEDS: zinc gluconate 50 mg Tablet PO (09:03)
[2023-12-04] MEDS: vancomycin 100 mg/1 mL Oral Syringe 125 MG PO ×4 (09:03→20:31)
[2023-12-04 14:10] LABS: Hematocrit 23.3 % (37-53)
[2023-12-04] MEDS: nystatin powder 15 gm Btl 1 APPLIC TOPICAL ×2 (15:41→17:33)
[2023-12-04] MEDS: sodium chloride 0.9% 250 ML IV (15:42)
--- NOTE | 2023-12-04 16:20 | PC.NUTR ---
Increase Jevity 1.5 from 40ml/hr to 50mls/hr with FWF of 120mls Q4H or per MD via PEG. If pt is to remain strict NPO, home TF regimen to be as followed: Bolus: Jevity 1.5 @ 474ml @B, 237ml @L, 474ml @D with FWF of 120ml q4 Cyclic: Jevity 1.5 @ 75 ml/hr x16 hrs with FWF 120 ml q4 (provides 1800 kcals, 100% of EEN, 77g/protein, 77% of needs, and 100% of fluid needs)
--- NOTE | 2023-12-04 23:50 | PC.NURSE ---
Hold Gabapentin: Dr. Valadez gave telephone orders to hold evening dose of gabapentin. Patient has low responsive state.
[2023-12-05] VITALS (104 sets, daily range): BP systolic 80–124; BP diastolic 52–82; PULSE 76–106; RESP 16–40; TEMP 36.8–37.4; O2SAT 92–100; BMI 33.1
[2023-12-05] MEDS: levETIRAcetam 500 MG/100 ML PREMIX 400 MG IV ×2 (00:32→13:28)
[2023-12-05] MEDS: norepinephrine 4 MG/250 ML BAG 15 MG IV (01:44)
[2023-12-05] MEDS: ipratropium-albuterol 3 mL Neb INHALATION ×4 (01:54→20:47)
[2023-12-05] MEDS: chlorhexidine gluconate 4% Btl 118 mL 1 APPLIC TOPICAL (03:13)
[2023-12-05 04:08] LABS: Basophils % 0.6 %; Eosinophils # 0.1 10^3/uL (0.0-0.8); Eosinophils % 0.9 %; Hematocrit 22.8 % (37-53); Lymphocytes # 0.7 10^3/uL (0.8-4.8); Lymphocytes % 13.6 %; Mean Corpuscular Hemoglobin 33.2 pg (27-33); Mean Corpuscular Volume 103.6 fl (82-101); Mean Platelet Volume 11.3 fL (7.4-10.4); Monocytes # 0.3 10^3/uL (0.2-0.9); Neutrophils # 3.94 10^3/uL (1.8-7.7); Neutrophils % 74.2 %; Nucleated Red Blood Cells % 0.4 %; Platelet Count 155 10^3/cmm (157-399); Red Cell Distribution Width 16.6 % (12.1-15.1); White Blood Count 5.31 10^3/uL (3.29-11.43)
[2023-12-05 04:37] LABS: Alanine Aminotransferase 41 U/L (0-41); Albumin Level 2.8 g/dL (3.5-5.2); Alkaline Phosphatase 111 U/L (40-130); Anion Gap 12.7 (5-19); Aspartate Amino Transferase 30 U/L (0-40); Blood Urea Nitrogen 16 mg/dL (8-23); Calcium 8.4 mg/dL (8.5-10.5); Carbon Dioxide 22 mmol/L (22-29); Chloride 106 mmol/L (98-107); Creatinine Clr Calc Pharmacy 52.8358; Globulin 2.7 g/dL (1.3-4.6); Glomerular Filtration Rate 297.3 mL/min (90-130); Glucose 153 mg/dL (65-115); Magnesium 1.8 mg/dL (1.7-2.3); Osmolality Calculated 288 mOsm/kg (285-295); Potassium 3.7 mmol/L (3.5-5.1); Sodium 137 mmol/L (136-145); Total Bilirubin 0.5 mg/dL (0.15-1.2); Total Protein 5.5 g/dL (6.6-8.7)
[2023-12-05] MEDS: meropenem 1,000 mg SDV 1000 MG IVP ×3 (05:17→20:13)
[2023-12-05] MEDS: aspirin 81 mg EC Tablet PO (05:17)
--- NOTE | 2023-12-05 05:52 | P.PN_ITS ---
Subjective 2 Subjective: 68 yo wm who is POD #4 s/p tracheotomy a nd Nasal packing placement who is doing well from this standpoint by report from nursing staff. There are no issues relating to these issues. Medications: Reviewed: Yes Vitals/I&O/Wt Last Vital Signs Temp 99.1 F 12/05/23 05:30 Pulse 95 12/05/23 05:30 Resp 24 H 12/05/23 04:00 BP 118/71 12/05/23 05:30 Pulse Ox 97 12/05/23 05:30 O2 Del Method Mechanical Ventilation 12/05/23 05:30 O2 Flow Rate 28 12/01/23 19:54 FiO2 30 12/05/23 05:30 12/04/23 12/04/23 12/05/23 14:59 22:59 06:59 Intake Total 800 / 800 117.5 / 917.5 502.5 / 1420.0 Output Total 1450 / 1450 Balance 800 / 800 117.5 / 917.5 -947.5 / -30.0 Weight last 48 hrs Weight 42.864 kg Weight 88 kg Physical Exam 2 Const: GENERAL APPEARANCE: patient mechanically ventilated HENMT: COMMON NORMALS: normocephalic, atraumatic and Normal external nose present HEAD & SCALP: normocephalic and atraumatic FACE & SINUS: normal facial exam NOSE: Normal external nose present and Epistaxis present (Packing in place without bleeding noted.) Neck/C-Spine: GENERAL: Yes tracheostomy present (No swelling, erythema, or discharge. ) Urinary Catheter Management: Strange: Cath Placed During This Visit: yes Reason for Continuing Indwelling Catheter: Accurate Measurement of Urinary Output in Critically Ill Patients Urinary Catheter Date of Insertion: 11/21/23 Urinary Catheter Time of Insertion: 11:40 Data 12/05/23 03:48 12/05/23 03:48 Micro: Microbiology 12/03/23 16:33 Blood Culture - Preliminary Blood NEGATIVE TO DATE 12/04/23 11:15 Gram Stain - Final Sputum - Endotracheal Tube Aspirate 12/03/23 13:31 Blood Culture - Preliminary Blood NEGATIVE TO DATE 12/03/23 12:53 Urine Culture - Preliminary Urine Catheterized Yeast species A&P Assessment and plan (1) Respiratory failure: Impression: POD #4 s/p tracheotomy doing well from this standpoint Plan: - Continue trach care - Anticipate first trach change on POD #7 (2) Epistaxis: Impression: No significant bleeding noted Plan: - I will remove with first trach change - I will make further recommendations once the packing has been removed. Attestations 2 Medical Necessity Statement*: I was consulted to assist in management of the patient's airway management and epistaxis. Coding Level of Care Code Acute Code for [facility] Diagnoses Respiratory failure J96.90 Epistaxis R04.0
--- NOTE | 2023-12-05 07:19 | P.PN_ITS ---
Documented by User: MAYNOR Wu STDPATY 12/05/23 10:25 Subjective 2 Subjective: Patient is doing well. Patient is more responsive to stimulus and touch. Patient is opening eyes and squeezing hands on command. Hgb is 7.3 today, will give 1 unit pRBCs and recheck Hgb in a few hours. Started on fluconazole due to yeast grown from urine cath. Endo Tube Aspiration/Sputum has negative gram state for organisms, waiting on culture results. Vitals/I&O/Wt Last Vital Signs Temp 99.1 F 12/05/23 05:30 Pulse 95 12/05/23 06:00 Resp 24 H 12/05/23 04:00 BP 104/71 12/05/23 06:00 Pulse Ox 97 12/05/23 06:00 O2 Del Method Mechanical Ventilation 12/05/23 06:00 O2 Flow Rate 28 12/01/23 19:54 FiO2 30 12/05/23 06:00 12/04/23 12/05/23 12/05/23 22:59 06:59 14:59 Intake Total 117.5 / 917.5 3180.5 / 4098.0 Output Total 1450 / 1450 Balance 117.5 / 917.5 1730.5 / 2648.0 Weight last 48 hrs Weight 211 lb 10.3 oz Weight 94 lb 8 oz Weight 194 lb 0.108 oz Physical Exam 2 Const: OTHER: On Ventilator via trach. Responsive to stimulus. Opened eyes, raising, eyebrows, squeezing hands. Neck/C-Spine: OTHER: Trach noted. Resp: OTHER: Bilateral coarse lung sounds bilaterally Cardio: OTHER: Normal heart rhythm GI: OTHER: Soft, nondistended with normal bowel sounds. PEG tube noted. : OTHER: Catheter noted Extremity: OTHER: No edema or cyanosis Urinary Catheter Management: Strange: Cath Placed During This Visit: yes Reason for Continuing Indwelling Catheter: Accurate Measurement of Urinary Output in Critically Ill Patients Urinary Catheter Date of Insertion: 11/21/23 Urinary Catheter Time of Insertion: 11:40 Data 12/05/23 03:48 12/05/23 03:48 Micro: Microbiology 12/03/23 16:33 Blood Culture - Preliminary Blood NEGATIVE TO DATE 12/04/23 11:15 Gram Stain - Final Sputum - Endotracheal Tube Aspirate 12/03/23 13:31 Blood Culture - Preliminary Blood NEGATIVE TO DATE 12/03/23 12:53 Urine Culture - Preliminary Urine Catheterized Yeast species A&P Assessment and plan (1) Acute hypoxic respiratory failure: Still requiring significant ventilator support. Have not been able to move to Adjust pressure support. Currently on a PEEP of 5, FiO2 of 30%, a tidal volume of 500. (2) Small cell lung cancer: Qualifiers: Laterality: unspecified laterality Lung location: unspecified part of lung Qualified Code(s): C34.90 - Malignant neoplasm of unspecified part of unspecified bronchus or lung (3) Anemia: Patient's hemoglobin is still down, 7.3. Will give 1 unit pRBCs and recheck later No obvious blood loss other than occasional oozing from his nasopharynx. Still not a candidate to start anticoagulation. (4) Septic shock: Urine Cath tested positive for yeast, started on fluconazole Endo Tube Aspiration/Sputum has negative gram state for organisms, waiting on culture results. Blood culure still pending Blood pressure is still somewhat soft and continues norepinephrine at 2. Will try to wean off. Continue meropenem and vancomycin Will recheck an MRSA PCR, and sputum culture. Cultures all repeated and pending (5) Epistaxis: See above (6) DVT (deep venous thrombosis): Not candidate for anticoagulation currently but will start when appropriate Has a vena cava filter placed. (7) COVID-19: Completed treatment with remdesivir, dexamethasone and is off isolation. Monitor closely blood pressure, electrolytes as he is not currently on steroids. (8) C. difficile colitis: Continue vanc p.o Plan -Full code currently, as DPOA Hypokalemia has resolved with KCl supplementation, Potassium is 3.7, normal Magnesium levels Coding Level of Care Code Critical Care >/= 30 minutes Diagnoses Acute hypoxic respiratory failure J96.01 Small cell carcinoma of lung, unspecified laterality, unspecified part of lung C34.90 Laterality: unspecified laterality Lung location: unspecified part of lung Anemia D64.9 Septic shock A41.9; R65.21 Epistaxis R04.0 DVT (deep venous thrombosis) I82.409 COVID-19 U07.1 C. difficile colitis A04.72 Documented by User: Montrell Graff MD 12/05/23 10:28 Physical Exam 2 Urinary Catheter Management: Strange: Cath Placed During This Visit: yes Data 12/05/23 03:48 12/05/23 03:48 A&P Assessment and plan (1) Acute hypoxic respiratory failure: Still requiring significant ventilator support. Have not been able to wean from ventilator. Multiple attempts, and fails have been made over the last several days Currently on a PEEP of 5, FiO2 of 30%, a tidal volume of 500. Needs long-term care for slow weaning (2) Small cell lung cancer: Qualifiers: Laterality: unspecified laterality Lung location: unspecified part of lung Qualified Code(s): C34.90 - Malignant neoplasm of unspecified part of unspecified bronchus or lung (3) Anemia: (4) Septic shock: Urine Cath tested positive for yeast, started on fluconazole Endo Tube Aspiration/Sputum has negative gram state for organisms, waiting on culture results. Blood culure still pending Blood pressure is still somewhat soft and continues norepinephrine at 2. Will try to wean off. Continue meropenem and vancomycin Awaiting repeat cultures. (5) Epistaxis: (6) DVT (deep venous thrombosis): Not candidate for anticoagulation currently but will start when appropriate Has a vena cava filter placed. With anemia requiring transfusion, reassess tomorrow. (7) COVID-19: (8) C. difficile colitis: Plan Hypotension. Currently on 2 of norepinephrine. Likely wean off after blood transfusion -Full code currently, as DPOA Hypokalemia has resolved with KCl supplementation, Potassium is 3.7, normal Magnesium levels Attestations 2 Medical Necessity Statement*: Needs continued hospitalization for attempts at weaning of the vent in this very weak patient who needs long-term care. Critical Care Time: The high probability of a clinically significant, sudden or life threatening deterioration of the patient's [pulmonary, infectious disease, renal, vascular] system(s) required my full and direct attention, intervention and personal management. The critical care time is as shown. This time is in addition to time spent performing any reported procedures but includes the following: [x] Data and vital sign review and interpretation [x] Patient assessment, examination and intervention [x] Documentation [x] Medication orders and management Critical Care Time (min): 35 Coding Level of Care Code Critical Care >/= 30 minutes Critical care time (in minutes): 35 The high probability of a clinically significant, sudden or life threatening deterioration, as referenced in this documentation, required my full and direct attention, intervention and personal management. The critical care time shown is in addition to time spent performing any reported separately billable procedures and includes the following: [x] Data and vital sign review and interpretation [x ] Patient assessment, examination and intervention [x] Medication orders and management [x] Patient/Family updates as able [x] Care Coordination and Documentation. Diagnoses Acute hypoxic respiratory failure J96.01 Small cell carcinoma of lung, unspecified laterality, unspecified part of lung C34.90 Laterality: unspecified laterality Lung location: unspecified part of lung Anemia D64.9 Septic shock A41.9; R65.21 Epistaxis R04.0 DVT (deep venous thrombosis) I82.409 COVID-19 U07.1 C. difficile colitis A04.72
[2023-12-05] MEDS: pantoprazole 40 mg SDV IVP ×2 (07:35→20:14)
[2023-12-05] MEDS: fluconazole premix 200 MG/100 ML PREMIX 100 MG IV (07:35)
[2023-12-05] MEDS: budesonide 0.5 mg/2 mL Neb INHALATION ×2 (07:59→20:47)
[2023-12-05] MEDS: zinc gluconate 50 mg Tablet PO (09:51)
[2023-12-05] MEDS: vancomycin 100 mg/1 mL Oral Syringe 125 MG PO ×4 (09:51→20:14)
[2023-12-05] MEDS: nystatin powder 15 gm Btl 1 APPLIC TOPICAL ×2 (09:52→16:35)
--- NOTE | 2023-12-05 12:55 | PC.SOCIAL ---
IMM Update pg 2 of IMM not updated and patient remains intubated and is not @ bedside @ this time.. Copy left @ bedside and copy dated, initialed and placed in chart.
[2023-12-05 16:02] LABS: Hematocrit 26.6 % (37-53)
[2023-12-05 16:26] LABS: Vancomycin Trough 12.4 ug/mL (10-15)
[2023-12-05] MEDS: vancomycin 1,250 MG/250 ML PIGGYBACK 200 MG IV (16:34)
--- NOTE | 2023-12-05 20:20 | PC.NURSE ---
Hold Gabapentin: Dr. Valadez gave telephone orders to hold ordered gabapentin.
[2023-12-06] VITALS (106 sets, daily range): BP systolic 74–124; BP diastolic 45–77; PULSE 83–115; RESP 21–40; TEMP 36.6–37.4; O2SAT 90–100; BMI 33.3
[2023-12-06] MEDS: levETIRAcetam 500 MG/100 ML PREMIX 400 MG IV (00:35)
[2023-12-06] MEDS: ipratropium-albuterol 3 mL Neb INHALATION ×4 (03:29→20:09)
[2023-12-06] MEDS: aspirin 81 mg EC Tablet PO (05:11)
[2023-12-06] MEDS: meropenem 1,000 mg SDV 1000 MG IVP ×3 (05:11→20:10)
[2023-12-06] MEDS: fluconazole premix 200 MG/100 ML PREMIX 100 MG IV (06:10)
[2023-12-06 07:22] LABS: Basophils % 0.5 %; Eosinophils % 0.5 %; Hematocrit 26.3 % (37-53); Lymphocytes # 0.4 10^3/uL (0.8-4.8); Lymphocytes % 10.4 %; Mean Corpuscular HGB Conc 31.2 g/dL (30-55); Mean Corpuscular Hemoglobin 31.1 pg (27-33); Mean Corpuscular Volume 99.6 fl (82-101); Mean Platelet Volume 11.4 fL (7.4-10.4); Monocytes # 0.3 10^3/uL (0.2-0.9); Monocytes % 7.9 %; Neutrophils # 3.14 10^3/uL (1.8-7.7); Nucleated Red Blood Cells % 0 %; Platelet Count 151 10^3/cmm (157-399); Red Blood Count 2.64 10^6/uL (3.85-5.65); Red Cell Distribution Width 18.7 % (12.1-15.1); White Blood Count 4.03 10^3/uL (3.29-11.43)
[2023-12-06 07:31] LABS: Alanine Aminotransferase 43 U/L (0-41); Albumin Level 2.6 g/dL (3.5-5.2); Alkaline Phosphatase 105 U/L (40-130); Anion Gap 13.6 (5-19); Aspartate Amino Transferase 28 U/L (0-40); Blood Urea Nitrogen 16 mg/dL (8-23); Calcium 8.5 mg/dL (8.5-10.5); Carbon Dioxide 22 mmol/L (22-29); Chloride 103 mmol/L (98-107); Creatinine Clr Calc Pharmacy 96.4663; Globulin 2.9 g/dL (1.3-4.6); Glomerular Filtration Rate 297.3 mL/min (90-130); Glucose 138 mg/dL (65-115); Magnesium 1.7 mg/dL (1.7-2.3); Osmolality Calculated 283 mOsm/kg (285-295); Potassium 3.6 mmol/L (3.5-5.1); Sodium 135 mmol/L (136-145); Total Bilirubin 0.4 mg/dL (0.15-1.2); Total Protein 5.5 g/dL (6.6-8.7)
[2023-12-06] MEDS: budesonide 0.5 mg/2 mL Neb INHALATION ×2 (07:36→20:09)
--- NOTE | 2023-12-06 07:36 | P.PN_ITS ---
Subjective 2 Subjective: 68 yo wm who is POD #5 s/p Tracheotomy a nd nasal pacing for respiratory failure and epistaxis. There are no c/o. Medications: Reviewed: Yes Vitals/I&O/Wt Last Vital Signs Temp 98.9 F 12/06/23 04:30 Pulse 104 H 12/06/23 06:00 Resp 27 H 12/06/23 06:37 BP 83/55 12/06/23 06:00 Pulse Ox 99 12/06/23 06:37 O2 Del Method Mechanical Ventilation 12/06/23 06:00 O2 Flow Rate 28 12/01/23 19:54 FiO2 30 12/06/23 06:37 12/05/23 12/06/23 12/06/23 22:59 06:59 14:59 Intake Total 942 / 1147.25 100 / 1247.25 Output Total 300 / 475 350 / 825 Balance 642 / 672.25 -250 / 422.25 Weight last 48 hrs Weight 96.5 kg Weight 96 kg Physical Exam 2 Const: GENERAL APPEARANCE: patient mechanically ventilated HENMT: COMMON NORMALS: normocephalic and atraumatic HEAD & SCALP: n ormocephalic and atraumatic FACE & SINUS: normal facial exam NOSE: E pistaxis present (Nasal packing in place; no bleeding noted. ) and Other nasal findings present Neck/C-Spine: GENERAL: Yes tracheostomy present (No swelling, erythema, or d/c present.) Urinary Catheter Management: Strange: Cath Placed During This Visit: yes Reason for Continuing Indwelling Catheter: Accurate Measurement of Urinary Output in Critically Ill Patients Urinary Catheter Date of Insertion: 11/21/23 Urinary Catheter Time of Insertion: 11:40 Data 12/06/23 07:09 12/06/23 07:09 Micro: Microbiology 12/04/23 11:15 Gram Stain - Final Sputum - Endotracheal Tube Aspirate Sputum Culture - Preliminary A&P Assessment and plan (1) Respiratory failure: Impression: POD #5 s/p tracheotomy doing well from this standpoint Plan: - Continue trach care - First trach change on POD #7 (2) Epistaxis: Impression: Stable without bleeding Plan: - I will remove nasal packing on POD #7 - I will make further recommendations after removal. Attestations 2 Medical Necessity Statement*: I was consulted to assist in management of the patient's airway and epistaxis. Coding Level of Care Code Acute Code for [facility] Diagnoses Respiratory failure J96.90 Epistaxis R04.0
[2023-12-06] MEDS: pantoprazole 40 mg SDV IVP ×2 (07:49→20:10)
[2023-12-06] MEDS: norepinephrine 4 MG/250 ML BAG 7.5 MG IV (08:41)
[2023-12-06] MEDS: zinc gluconate 50 mg Tablet PO (08:45)
[2023-12-06] MEDS: nystatin powder 15 gm Btl 1 APPLIC TOPICAL ×2 (08:45→17:21)
[2023-12-06] MEDS: vancomycin 100 mg/1 mL Oral Syringe 125 MG PO ×4 (08:46→21:02)
--- NOTE | 2023-12-06 10:08 | P.PN_ITS ---
Subjective 2 Subjective: More awake. Following instructions. No voiced complaints. Medications: Reviewed: Yes Vitals/I&O/Wt Last Vital Signs Temp 98.7 F 12/06/23 08:30 Pulse 95 12/06/23 09:00 Resp 37 H 12/06/23 07:39 BP 79/57 12/06/23 09:00 Pulse Ox 100 12/06/23 09:00 O2 Del Method Mechanical Ventilation 12/06/23 07:36 O2 Flow Rate 28 12/01/23 19:54 FiO2 30 12/06/23 07:39 12/05/23 12/06/23 12/06/23 22:59 06:59 14:59 Intake Total 942 / 1147.25 100 / 1247.25 100 / 100 Output Total 300 / 475 350 / 825 Balance 642 / 672.25 -250 / 422.25 100 / 100 Weight last 48 hrs Weight 96.5 kg Weight 96 kg Physical Exam 2 Narrative: General Exam difficult to awaken, raises eyebrows. Extremely weak. Difficulty moving upper extremities secondary to weakness. Still dependent on the ventilator. Cannot stay off for any significant amount of time without driving minute ventilation up significantly. Neck demonstrates trach Cardiovascular regular in rhythm Lungs coarse bilaterally Abdomen deficits demonstrates soft, bowel sounds, PEG noted exam demonstrates Strange Extremities no cyanosis, edema Urinary Catheter Management: Strange: Cath Placed During This Visit: yes Reason for Continuing Indwelling Catheter: Accurate Measurement of Urinary Output in Critically Ill Patients Urinary Catheter Date of Insertion: 11/21/23 Urinary Catheter Time of Insertion: 11:40 Data 12/06/23 07:09 12/06/23 07:09 Micro: Microbiology 12/04/23 11:15 Gram Stain - Final Sputum - Endotracheal Tube Aspirate Sputum Culture - Preliminary A&P Assessment and plan (1) Acute hypoxic respiratory failure: Still requiring significant ventilator support. Have not been able to wean from ventilator. Multiple attempts, and fails have been made over the last several days. I expect this to continue. He will need slow weaning out of the long-term care facility. Currently on a PEEP of 5, FiO2 of 30%, a tidal volume of 500. (2) Small cell lung cancer: Qualifiers: Laterality: unspecified laterality Lung location: unspecified part of lung Qualified Code(s): C34.90 - Malignant neoplasm of unspecified part of unspecified bronchus or lung (3) Anemia: Patient's hemoglobin is still down, 8.2 following transfusion on December 04 No obvious blood loss other than occasional oozing from his nasopharynx. Still not a candidate to start anticoagulation.. He will have trach change on Friday, perhaps initiate anticoagulation then (4) Septic shock: Urine Cath tested positive for yeast, started on fluconazole Endo Tube Aspiration/Sputum pending Repeat blood culure negative to date Blood pressure is still somewhat soft and continues norepinephrine at 2. Intermittently weans off and then requires again. Will go ahead and initiate midodrine Continue meropenem and vancomycin Awaiting repeat cultures. (5) Epistaxis: See above (6) DVT (deep venous thrombosis): Not candidate for anticoagulation currently but will start when appropriate Has a vena cava filter placed. With anemia requiring transfusion, reassess tomorrow. (7) COVID-19: Completed treatment with remdesivir, dexamethasone and is off isolation. Monitor closely blood pressure, electrolytes as he is not currently on steroids. (8) C. difficile colitis: Continue vanc p.o Plan Hypotension. Currently on 2 of norepinephrine. Initiate midodrine -Full code currently, as DPOA Attestations 2 Medical Necessity Statement*: Needs continued hospitalization secondary respiratory failure requiring ventilatory support Critical Care Time: The high probability of a clinically significant, sudden or life threatening deterioration of the patient's [pulmonary, renal infectious disease] system(s) required my full and direct attention, intervention and personal management. The critical care time is as shown. This time is in addition to time spent performing any reported procedures but includes the following: [x] Data and vital sign review and interpretation [x] Patient assessment, examination and intervention [x] Documentation [x] Medication orders and management Critical Care Time (min): 31 Coding Level of Care Code Critical Care >/= 30 minutes Critical care time (in minutes): 31 The high probability of a clinically significant, sudden or life threatening deterioration, as referenced in this documentation, required my full and direct attention, intervention and personal management. The critical care time shown is in addition to time spent performing any reported separately billable procedures and includes the following: [x] Data and vital sign review and interpretation [x ] Patient assessment, examination and intervention [x] Medication orders and management [x] Patient/Family updates as able [x] Care Coordination and Documentation. Diagnoses Acute hypoxic respiratory failure J96.01 Small cell carcinoma of lung, unspecified laterality, unspecified part of lung C34.90 Laterality: unspecified laterality Lung location: unspecified part of lung Anemia D64.9 Septic shock A41.9; R65.21 Epistaxis R04.0 DVT (deep venous thrombosis) I82.409 COVID-19 U07.1 C. difficile colitis A04.72
[2023-12-06] MEDS: vancomycin 1,250 MG/250 ML PIGGYBACK 200 MG IV (10:09)
[2023-12-06] MEDS: midodrine 5 mg TABLET PO ×2 (15:45→21:02)
[2023-12-06] MEDS: levETIRAcetam 1,000 mg/10 mL UDC 500 MG NG-TUBE (17:21)
[2023-12-07] VITALS (92 sets, daily range): BP systolic 85–118; BP diastolic 54–76; PULSE 87–104; RESP 12–37; TEMP 37.1–37.7; O2SAT 92–100; BMI 32.6
[2023-12-07] MEDS: chlorhexidine gluconate 4% Btl 118 mL 1 APPLIC TOPICAL (00:05)
[2023-12-07] MEDS: lanolin oint 7 gm 1 APPLIC TOPICAL (00:06)
[2023-12-07] MEDS: ipratropium-albuterol 3 mL Neb INHALATION ×4 (01:02→20:46)
[2023-12-07] MEDS: vancomycin 1,250 MG/250 ML PIGGYBACK 200 MG IV ×2 (04:07→21:34)
[2023-12-07] MEDS: meropenem 1,000 mg SDV 1000 MG IVP ×3 (04:07→19:50)
[2023-12-07 04:29] LABS: Basophils % 0.9 %; Eosinophils % 0.9 %; Hematocrit 26.1 % (37-53); Lymphocytes # 0.5 10^3/uL (0.8-4.8); Lymphocytes % 12.1 %; Mean Corpuscular HGB Conc 32.2 g/dL (30-55); Mean Corpuscular Hemoglobin 31.9 pg (27-33); Mean Corpuscular Volume 99.2 fl (82-101); Mean Platelet Volume 10.6 fL (7.4-10.4); Monocytes # 0.3 10^3/uL (0.2-0.9); Monocytes % 7.2 %; Neutrophils # 3.22 10^3/uL (1.8-7.7); Neutrophils % 74.9 %; Nucleated Red Blood Cells % 0 %; Platelet Count 159 10^3/cmm (157-399); Red Blood Count 2.63 10^6/uL (3.85-5.65); Red Cell Distribution Width 18.4 % (12.1-15.1)
[2023-12-07 04:58] LABS: Anion Gap 14.1 (5-19); Blood Urea Nitrogen 15 mg/dL (8-23); Calcium 8.8 mg/dL (8.5-10.5); Carbon Dioxide 24 mmol/L (22-29); Chloride 100 mmol/L (98-107); Glomerular Filtration Rate 297.3 mL/min (90-130); Glucose 119 mg/dL (65-115); Osmolality Calculated 280 mOsm/kg (285-295); Potassium 4.1 mmol/L (3.5-5.1); Sodium 134 mmol/L (136-145)
[2023-12-07 05:02] LABS: Creatinine Clr Calc Pharmacy 96.4663
[2023-12-07] MEDS: aspirin 81 mg EC Tablet PO (06:18)
[2023-12-07] MEDS: fluconazole premix 200 MG/100 ML PREMIX 50 MG IV (06:19)
[2023-12-07] MEDS: pantoprazole 40 mg SDV IVP ×2 (07:20→19:50)
[2023-12-07] MEDS: budesonide 0.5 mg/2 mL Neb INHALATION ×2 (07:56→20:45)
[2023-12-07] MEDS: zinc gluconate 50 mg Tablet PO (08:55)
[2023-12-07] MEDS: levETIRAcetam 1,000 mg/10 mL UDC 500 MG NG-TUBE ×2 (08:56→17:11)
[2023-12-07] MEDS: midodrine 5 mg TABLET PO ×3 (08:56→21:33)
[2023-12-07] MEDS: vancomycin 100 mg/1 mL Oral Syringe 125 MG PO ×4 (08:56→21:35)
[2023-12-07] MEDS: nystatin powder 15 gm Btl 1 APPLIC TOPICAL ×2 (08:57→17:11)
--- NOTE | 2023-12-07 09:34 | P.PN_ITS ---
Subjective 2 Subjective: No new concerns. More alert. Some low-grade temperatures on occasion. Working with weaning ventilator every day. Appeal has occurred to [facility]. Medications: Reviewed: Yes Vitals/I&O/Wt Last Vital Signs Temp 99.8 F H 12/07/23 07:00 Pulse 96 12/07/23 09:15 Resp 31 H 12/07/23 08:00 BP 114/70 12/07/23 09:15 Pulse Ox 97 12/07/23 09:15 O2 Del Method Mechanical Ventilation 12/07/23 09:15 O2 Flow Rate 28 12/01/23 19:54 FiO2 30 12/07/23 08:00 12/06/23 12/07/23 12/07/23 22:59 06:59 14:59 Intake Total 793.875 / 1143.875 843 / 1986.875 100 / 100 Output Total 150 / 1100 Balance 643.875 / 43.875 843 / 886.875 100 / 100 Weight last 48 hrs Weight 94.5 kg Weight 96.5 kg Physical Exam 2 Narrative: General Exam awakens, moves hands but obviously very weak Neck demonstrates trach Cardiovascular regular in rhythm Lungs coarse bilaterally Abdomen deficits demonstrates soft, bowel sounds, PEG noted exam demonstrates Strange Extremities no cyanosis, edema Urinary Catheter Management: Strange: Cath Placed During This Visit: yes Reason for Continuing Indwelling Catheter: Accurate Measurement of Urinary Output in Critically Ill Patients Urinary Catheter Date of Insertion: 11/21/23 Urinary Catheter Time of Insertion: 11:40 Data 12/07/23 04:13 12/07/23 04:13 Micro: Microbiology 12/03/23 12:53 Urine Culture - Final Urine Catheterized Clementina albicans 12/04/23 11:15 Gram Stain - Final Sputum - Endotracheal Tube Aspirate Sputum Culture - Final Yeast A&P Assessment and plan (1) Acute hypoxic respiratory failure: Still requiring significant ventilator support. Have not been able to wean from ventilator. Multiple attempts, and fails have been made over the last several days. I expect this to continue. He will need slow weaning out of the long-term care facility. Currently on a PEEP of 5, FiO2 of 30%, a tidal volume of 500. They will attempt weaning again today, and clinically he will likely fail as he did yesterday (2) Small cell lung cancer: Qualifiers: Laterality: unspecified laterality Lung location: unspecified part of lung Qualified Code(s): C34.90 - Malignant neoplasm of unspecified part of unspecified bronchus or lung (3) Anemia: Hemoglobin stable today. Last transfusion December 04. No oozing from his oropharynx overnight. Trach change on Friday. Consider reinitiating anticoagulation for DVT then if no bleeding (4) Septic shock: Urine Cath tested positive for yeast, started on fluconazole. Sputum grew yeast. Both of these are likely colonization but fluconazole has been started. This was started on December 04. Repeat cultures have not delineated any new infection. Low-grade temperatures still occurring but may be secondary to atelectasis. Antibiotics were expanded with hypotension, significant fevers on December 02 to include meropenem Repeat blood culure negative to date Now off norepinephrine, on midodrine 5 mg 3 times daily Continue meropenem and vancomycin currently for pneumonia. I did try to repeat a nasal MRSA swab but was refused as nursing could not swab him nasally and laboratory refused to use sputum. (5) Epistaxis: See above. Resolved with packing (6) DVT (deep venous thrombosis): Not candidate for anticoagulation currently but will start when appropriate Has a vena cava filter placed. Reassess after trach change (7) COVID-19: Completed treatment with remdesivir, dexamethasone and is off isolation. Monitor closely blood pressure, electrolytes as he is not currently on steroids. (8) C. difficile colitis: Continue vanc p.o Plan Hypotension. On midodrine Acute encephalopathy. Patient was significantly encephalopathic, and had some minor twitching noted of his neck during this time. He was loaded with Keppra, and this is continued at 500 mg twice daily. No EEG was done. This was noted at the time antibiotics were expanded, approximately December 02. Neurontin was at low-dose at that time. Secondary to its respiratory depressant effects I ultimately tapered Neurontin off and discontinued it. 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 Repeat CT scan at time of worsened mental status did not demonstrate any bleed or obvious edema. No CPR DPOA SCDs for DVT prophylaxis As no significant bleeding the last 24 hours go ahead and initiate subcutaneous Lovenox, DVT prophylaxis dosing initially Attestations 2 Medical Necessity Statement*: Needs continued hospitalization secondary to ventilator dependence, IV antibiotics for pneumonia, awaiting placement at long-term care facility. Critical Care Time: The high probability of a clinically significant, sudden or life threatening deterioration of the patient's [pulmonary, cardiac, vascular, infectious] s ystem(s) required my full and direct attention, intervention and personal management. The critical care time is as shown. This time is in addition to time spent performing any reported procedures but includes the following: [x] Data and vital sign review and interpretation [x] Patient assessment, examination and intervention [x] Documentation [x] Medication orders and management Critical Care Time (min): 35 Coding Level of Care Code Critical Care >/= 30 minutes Critical care time (in minutes): 35 The high probability of a clinically significant, sudden or life threatening deterioration, as referenced in this documentation, required my full and direct attention, intervention and personal management. The critical care time shown is in addition to time spent performing any reported separately billable procedures and includes the following: [x] Data and vital sign review and interpretation [x ] Patient assessment, examination and intervention [x] Medication orders and management [x] Patient/Family updates as able [x] Care Coordination and Documentation. Diagnoses Acute hypoxic respiratory failure J96.01 Small cell carcinoma of lung, unspecified laterality, unspecified part of lung C34.90 Laterality: unspecified laterality Lung location: unspecified part of lung Anemia D64.9 Septic shock A41.9; R65.21 Epistaxis R04.0 DVT (deep venous thrombosis) I82.409 COVID-19 U07.1 C. difficile colitis A04.72
[2023-12-07] MEDS: enoxaparin 40 mg/0.4 mL Syringe SUBCUT (10:40)
--- NOTE | 2023-12-07 13:21 | P.PN_ITS ---
Subjective 2 Subjective: 68 yo wm who is POD #6/Nasal Packing day #6 for Respiratory Failure with prolonged intubation and Epistaxis who is doing well from these standpoints. No reported issues. Medications: Reviewed: Yes Vitals/I&O/Wt Last Vital Signs Temp 99.8 F H 12/07/23 07:00 Pulse 90 12/07/23 10:15 Resp 22 H 12/07/23 11:06 BP 100/70 12/07/23 10:15 Pulse Ox 95 12/07/23 11:06 O2 Del Method Mechanical Ventilation 12/07/23 10:15 O2 Flow Rate 28 12/01/23 19:54 FiO2 21 12/07/23 11:06 12/06/23 12/07/23 12/07/23 22:59 06:59 14:59 Intake Total 793.875 / 1143.875 843 / 1986.875 100 / 100 Output Total 150 / 1100 Balance 643.875 / 43.875 843 / 886.875 100 / 100 Weight last 48 hrs Weight 94.5 kg Weight 96.5 kg Physical Exam 2 Const: COMMON NORMALS: no acute distress GENERAL APPEARANCE: patient mechanically ventilated HENMT: COMMON NORMALS: normocephalic and atraumatic HEAD & SCALP: n ormocephalic and atraumatic Neck/C-Spine: COMMON NORMALS: no lymphadenopathy GENERAL: Yes tracheostomy present (No erythema or discharge. ) Urinary Catheter Management: Strange: Cath Placed During This Visit: yes Reason for Continuing Indwelling Catheter: Accurate Measurement of Urinary Output in Critically Ill Patients Urinary Catheter Date of Insertion: 11/21/23 Urinary Catheter Time of Insertion: 11:40 Data 12/07/23 04:13 12/07/23 04:13 Micro: Microbiology 12/03/23 12:53 Urine Culture - Final Urine Catheterized Clementina albicans 12/04/23 11:15 Gram Stain - Final Sputum - Endotracheal Tube Aspirate Sputum Culture - Final Yeast A&P Assessment and plan (1) Respiratory failure: Impression: POD #6 s/p tracheotomy doing well from this standpoint. Plan: - First trach changed tomorrow - Continue trach care (2) Epistaxis: Impression: Stable without recurrent bleeding Plan: - Remove nasal packing tomorrow - I will make further recommendations after packing removal Attestations 2 Medical Necessity Statement*: I was consulted to assist in airway management and epistaxis. Coding Level of Care Code Acute Code for [facility] Diagnoses Respiratory failure J96.90 Epistaxis R04.0
[2023-12-08] VITALS (64 sets, daily range): BP systolic 81–106; BP diastolic 54–73; PULSE 80–104; RESP 17–26; TEMP 37–37.4; O2SAT 94–100; BMI 31.9
[2023-12-08] MEDS: ipratropium-albuterol 3 mL Neb INHALATION ×4 (02:47→19:57)
[2023-12-08 04:26] LABS: Basophils % 0.8 %; Eosinophils % 0.6 %; Hematocrit 26.4 % (37-53); Lymphocytes # 0.8 10^3/uL (0.8-4.8); Lymphocytes % 16.8 %; Mean Corpuscular HGB Conc 32.2 g/dL (30-55); Mean Corpuscular Hemoglobin 31.6 pg (27-33); Mean Corpuscular Volume 98.1 fl (82-101); Mean Platelet Volume 11.2 fL (7.4-10.4); Monocytes # 0.4 10^3/uL (0.2-0.9); Monocytes % 7.9 %; Neutrophils # 3.46 10^3/uL (1.8-7.7); Neutrophils % 70.1 %; Nucleated Red Blood Cells % 0 %; Platelet Count 181 10^3/cmm (157-399); Red Blood Count 2.69 10^6/uL (3.85-5.65); Red Cell Distribution Width 18.4 % (12.1-15.1); White Blood Count 4.94 10^3/uL (3.29-11.43)
[2023-12-08 04:53] LABS: Alanine Aminotransferase 41 U/L (0-41); Albumin Level 2.7 g/dL (3.5-5.2); Alkaline Phosphatase 119 U/L (40-130); Anion Gap 12.7 (5-19); Aspartate Amino Transferase 23 U/L (0-40); Blood Urea Nitrogen 15 mg/dL (8-23); Calcium 8.8 mg/dL (8.5-10.5); Carbon Dioxide 25 mmol/L (22-29); Chloride 102 mmol/L (98-107); Globulin 2.9 g/dL (1.3-4.6); Glomerular Filtration Rate 297.3 mL/min (90-130); Glucose 115 mg/dL (65-115); Magnesium 1.9 mg/dL (1.7-2.3); Osmolality Calculated 284 mOsm/kg (285-295); Potassium 3.7 mmol/L (3.5-5.1); Sodium 136 mmol/L (136-145); Total Bilirubin 0.3 mg/dL (0.15-1.2); Total Protein 5.6 g/dL (6.6-8.7)
[2023-12-08 04:54] LABS: Creatinine Clr Calc Pharmacy 95.4802
[2023-12-08] MEDS: aspirin 81 mg EC Tablet PO (05:36)
[2023-12-08] MEDS: chlorhexidine gluconate 4% Btl 118 mL 1 APPLIC TOPICAL (05:36)
[2023-12-08] MEDS: meropenem 1,000 mg SDV 1000 MG IVP ×3 (05:36→21:36)
--- NOTE | 2023-12-08 07:27 | PM.PN ---
Subjective Subjective: 68 yo wm who is POD #7 s/p tracheotomy for respiratory failure and prolonged intubation and Nasal packing for epistaxis. The patient has no issues from these standpoints. Medications: Reviewed: Yes Vitals/I&O/Wt Last Vital Signs Temp 99.3 F 12/08/23 04:00 Pulse 91 12/08/23 06:30 Resp 17 12/08/23 06:30 BP 84/61 12/08/23 06:30 Pulse Ox 97 12/08/23 06:30 O2 Del Method Mechanical Ventilation 12/08/23 06:30 O2 Flow Rate 12/01/23 19:54 FiO2 28 12/08/23 06:30 12/07/23 12/08/23 12/08/23 22:59 06:59 14:59 Intake Total 848 / 988 940 / 1928 Output Total 1050 / 1050 1650 / 2700 Balance -202 / -62 -710 / -772 Weight last 48 hrs Weight 92.5 kg Weight 94.5 kg Physical Exam Const: COMMON NORMALS: no acute distress and alert HENMT: COMMON NORMALS: normocephalic and atraumatic HEAD & SCALP: normocephalic and atraumatic Eye: COMMON NORMALS: no scleral icterus Neck/C-Spine: GENERAL: Yes trachea midline and Yes tracheostomy present (Clean, without erythema or swelling.) Neuro: SENSORIUM/ORIENTATION: Yes alert Urinary Catheter Management: Strange: Cath Placed During This Visit: yes Reason for Continuing Indwelling Catheter: Accurate Measurement of Urinary Output in Critically Ill Patients Urinary Catheter Date of Insertion: 11/21/23 Urinary Catheter Time of Insertion: 11:40 Data 12/08/23 03:53 12/08/23 03:53 A&P Assessment and plan (1) Respiratory failure: Impression: POD #7 s/p tracheotomy doing well Plan: - First trach change performed today: #8 Shiley, Cuffed placed - Continue trach care - Notify Dr. Olvera for any problems (2) Epistaxis: Impression: Nasal packing day #7 doing well Plan: - Nasal packing removed and the nose was sprayed with Afrin - I recommend Afrin Nasal [place]: 4 sprays/nostril QID X 4 days, then change to nasal saline spray: 2 sprays/nostril TID - Please notify Dr. Olvera for any recurrent nasal bleeding Attestations Medical Necessity Statement*: I was consulted to assist in airway management and control of the patient's epistaxis. Procedures Procedure Narrative First Tracheotomy Tube Change: the old trach tube was removed and was replaced without incident with a #8 Shiley, Cuffed tracheotomy tube. Coding Level of Care Code Acute Code for [facility] Fwd Diagnoses Respiratory failure J96.90 Epistaxis R04.0
[2023-12-08] MEDS: budesonide 0.5 mg/2 mL Neb INHALATION ×2 (08:10→19:57)
[2023-12-08] MEDS: midodrine 5 mg TABLET PO ×3 (08:27→21:54)
[2023-12-08] MEDS: zinc gluconate 50 mg Tablet PO (08:27)
[2023-12-08] MEDS: levETIRAcetam 1,000 mg/10 mL UDC 500 MG NG-TUBE ×2 (08:27→17:19)
[2023-12-08] MEDS: nystatin powder 15 gm Btl 1 APPLIC TOPICAL ×2 (08:28→17:19)
[2023-12-08] MEDS: vancomycin 100 mg/1 mL Oral Syringe 125 MG PO ×4 (08:28→21:54)
[2023-12-08] MEDS: pantoprazole 40 mg SDV IVP ×2 (08:28→21:09)
[2023-12-08] MEDS: fluconazole premix 200 MG/100 ML PREMIX 50 MG IV (08:28)
[2023-12-08] MEDS: oxymetazoline 0.05% Nasal Spray 15 mL 4 SPRAY NOSTRIL-B ×3 (08:29→20:36)
--- NOTE | 2023-12-08 08:49 | P.PN_ITS ---
Documented by User: MAYNOR Wu [email or web address] 12/08/23 13:02 Subjective 2 Subjective: Patient has been doing well. Still waiting on appeal for long-term care. His trach and nasal packing was changed this morning by ENT. Patient's BP has been low and is currently on midodrine. Patient is doing well on levonox for DVT PPX started yesterday. Still having some low-grade fevers Vitals/I&O/Wt Last Vital Signs Temp 99.3 F 12/08/23 04:00 Pulse 80 12/08/23 08:25 Resp 22 H 12/08/23 08:10 BP 84/61 12/08/23 06:30 Pulse Ox 98 12/08/23 08:10 O2 Del Method Mechanical Ventilation 12/08/23 06:30 O2 Flow Rate 12/01/23 19:54 FiO2 12/08/23 08:10 12/07/23 12/08/23 12/08/23 22:59 06:59 14:59 Intake Total 848 / 988 940 / 1928 Output Total 1050 / 1050 1650 / 2700 Balance -202 / -62 -710 / -772 Weight last 48 hrs Weight 203 lb 14.841 oz Weight 208 lb 5.389 oz Physical Exam 2 Const: OTHER: Awakens to stimulus, moves hands and eyes, but weak Neck/C-Spine: OTHER: Trach noted Chest: OTHER: Normal rate and rhythm without murmurs, gallops, or rubs. Resp: OTHER: Coarse lung sounds bilaterally. Cardio: OTHER: Normal rate and rhythm without murmurs, gallops, or rubs GI: OTHER: Soft, nondistended, nontender with normal bowel sounds. PEG noted : OTHER: Strange noted Extremity: OTHER: No edema or cyanosis. numerous purpura and reddnes noted on arms. Urinary Catheter Management: Strange: Cath Placed During This Visit: yes Reason for Continuing Indwelling Catheter: Accurate Measurement of Urinary Output in Critically Ill Patients Urinary Catheter Date of Insertion: 11/21/23 Urinary Catheter Time of Insertion: 11:40 Data 12/08/23 03:53 12/08/23 03:53 A&P Assessment and plan (1) Acute hypoxic respiratory failure: Still requiring significant ventilator support. Have not been able to wean from ventilator. Multiple attempts, and fails have been made over the last several days. Waiting on appeal for long-term care facility where he will need slow weaning. Currently on a PEEP of 5, FiO2 of 28%, a tidal volume of 500. (2) Septic shock: Previous Urine Cath and Sputum tested positive for yeast, continue on fluconazole. This was started on December 04. Repeat cultures have not yielded any new infection. Low-grade temperatures still occurring but may be secondary to atelectasis. Antibiotics expanded. On midodrine 5 mg 3 times daily for low BP Continue meropenem and vancomycin currently for pneumonia. MRSA nasal swab ordered but not collected (3) Epistaxis: Nasal packing removed today and the nose was sprayed with Afrin ENT recommended 4 sprays/nostril QID X 4 days of Afrin, then nasal saline spray 2 sprays/nostril TID (4) DVT (deep venous thrombosis): Was started on lovenox yesterday for DVT PPX Has a vena cava filter placed. (5) C. difficile colitis: Continue vanc p.o (6) Anemia: Hemoglobin stable today. Last transfusion December 04. No oozing from his oropharynx overnight. Trach was changed today without bleeding. (7) Small cell lung cancer: Qualifiers: Laterality: unspecified laterality Lung location: unspecified part of lung Qualified Code(s): C34.90 - Malignant neoplasm of unspecified part of unspecified bronchus or lung (8) COVID-19: Completed treatment with remdesivir, dexamethasone and is off isolation. Monitor closely blood pressure, electrolytes as he is not currently on steroids. Plan Hypotension. On midodrine Acute encephalopathy. On Keppra due to twitching No CPR DPOA Attestations 2 Medical Necessity Statement*: Per attending Coding Level of Care Code Acute Code for [facility] Fwd Diagnoses Acute hypoxic respiratory failure J96.01 Septic shock A41.9; R65.21 Epistaxis R04.0 DVT (deep venous thrombosis) I82.409 C. difficile colitis A04.72 Anemia D64.9 Small cell carcinoma of lung, unspecified laterality, unspecified part of lung C34.90 Laterality: unspecified laterality Lung location: unspecified part of lung COVID-19 U07.1 Documented by User: Yogi Dodd MD 12/08/23 13:37 Subjective 2 Subjective: Patient has been doing well. Still waiting on appeal for long-term care. His trach and nasal packing was changed this morning by ENT. Patient's BP has been low and is currently on midodrine. Patient is doing well on levonox for DVT PPX started yesterday. Still having some low-grade fevers Physical Exam 2 Narrative: General: Patient is awake. Ill-appearing. Head: Normocephalic. Atraumatic. EOM intact. Neck: No JVD. Tracheostomy. Cardiovascular: RRR. No gallops. No murmurs. Lungs: Breath sounds are diminished. No crackles. No wheezing. Trach. Skin: No jaundice. No rashes. Abdomen: Normal bowel sounds, abdomen soft and nontender. Feeding tube. Extremities: No cyanosis or clubbing. Musculoskeletal: No erythematous joints. Neurological: No myoclonus. Urinary Catheter Management: Strange: Cath Placed During This Visit: yes Data 12/08/23 03:53 12/08/23 03:53 A&P Assessment and plan (1) Acute hypoxic respiratory failure: Still requiring significant ventilator support. Have not been able to wean from ventilator. Multiple attempts, and fails have been made over the last several days, patient would likely require long-term trach weaning He needs to go to an LTACH facility - [facility] Waiting on appeal for long-term care facility where he will need slow weaning (2) Septic shock: Previous Urine Cath and Sputum tested positive for yeast, continue on fluconazole (12/04-present) On midodrine 5 mg 3 times daily for low BP Continue meropenem and vancomycin currently for pneumonia. MRSA nasal swab ordered but not collected (3) Epistaxis: Nasal packing removed today and the nose was sprayed with Afrin ENT recommended 4 sprays/nostril QID X 4 days of Afrin, then nasal saline spray 2 sprays/nostril TID (4) DVT (deep venous thrombosis): Continue Lovenox Plan for heparin drip in AM (5) C. difficile colitis: Continue vanc p.o (11/25-present) will continue oral vancomycin while he is still on systemic antibiotics (6) Anemia: Hemoglobin stable today. Last transfusion December 04. No oozing from his oropharynx overnight. Trach was changed today without bleeding. (7) Small cell lung cancer: Outpatient follow up Qualifiers: Laterality: unspecified laterality Lung location: unspecified part of lung Qualified Code(s): C34.90 - Malignant neoplasm of unspecified part of unspecified bronchus or lung (8) COVID-19: Resolved Attestations 2 Medical Necessity Statement*: patient requires ventilator support for which he requires ongoing hospitalization for weaning, IV antibiotics, nutrition, IV analgesics, serial labs, and supportive care. Critical Care Time: The high probability of a clinically significant, sudden or life threatening deterioration of the patient's respiratory system(s) required my full and direct attention, intervention and personal management. The critical care time is as shown. This time is in addition to time spent performing any reported procedures but includes the following: [x] Data and vital sign review and interpretation [x] Patient assessment, examination and intervention [x] Documentation [x] Medication orders and management Critical Care Time (min): 35 Coding Level of Care Code Acute Code for [facility] Fwd Diagnoses Acute hypoxic respiratory failure J96.01 Septic shock A41.9; R65.21 Epistaxis R04.0 DVT (deep venous thrombosis) I82.409 C. difficile colitis A04.72 Anemia D64.9 Small cell carcinoma of lung, unspecified laterality, unspecified part of lung C34.90 Laterality: unspecified laterality Lung location: unspecified part of lung COVID-19 U07.1
[2023-12-08] MEDS: enoxaparin 40 mg/0.4 mL Syringe SUBCUT (11:24)
[2023-12-08] MEDS: vancomycin 1,250 MG/250 ML PIGGYBACK 200 MG IV (15:14)
--- NOTE | 2023-12-08 16:00 | PC.SOCIAL ---
IMM updated IMM dated and initialed, copy given to patient and placed in chart.
--- NOTE | 2023-12-08 20:10 | PC.NURSE ---
TAR: No blood running/no blood bag in room on arrival to shift 12/08/23 @1900. TAR edited for 1900 to reflect this.
[2023-12-09] VITALS (65 sets, daily range): BP systolic 81–109; BP diastolic 45–74; PULSE 74–100; RESP 12–32; TEMP 36.4–37.2; O2SAT 95–100
[2023-12-09] MEDS: ipratropium-albuterol 3 mL Neb INHALATION ×4 (02:01→20:18)
[2023-12-09] MEDS: chlorhexidine gluconate 4% Btl 118 mL 1 APPLIC TOPICAL (02:04)
[2023-12-09] MEDS: lanolin oint 7 gm 1 APPLIC TOPICAL ×2 (02:06→06:09)
[2023-12-09] MEDS: oxymetazoline 0.05% Nasal Spray 15 mL 4 SPRAY NOSTRIL-B ×4 (02:26→20:24)
[2023-12-09 03:17] LABS: Basophils % 0.4 %; Eosinophils # 0.1 10^3/uL (0.0-0.8); Eosinophils % 0.9 %; Hematocrit 27.2 % (37-53); Lymphocytes # 1.1 10^3/uL (0.8-4.8); Lymphocytes % 20.1 %; Mean Corpuscular HGB Conc 31.6 g/dL (30-55); Mean Corpuscular Hemoglobin 30.8 pg (27-33); Mean Corpuscular Volume 97.5 fl (82-101); Mean Platelet Volume 11.6 fL (7.4-10.4); Monocytes # 0.5 10^3/uL (0.2-0.9); Monocytes % 8.7 %; Neutrophils # 3.52 10^3/uL (1.8-7.7); Neutrophils % 65.1 %; Nucleated Red Blood Cells % 0 %; Platelet Count 225 10^3/cmm (157-399); Red Blood Count 2.79 10^6/uL (3.85-5.65); Red Cell Distribution Width 18.1 % (12.1-15.1); White Blood Count 5.41 10^3/uL (3.29-11.43)
[2023-12-09 03:39] LABS: Alanine Aminotransferase 39 U/L (0-41); Albumin Level 2.9 g/dL (3.5-5.2); Alkaline Phosphatase 122 U/L (40-130); Aspartate Amino Transferase 23 U/L (0-40); Blood Urea Nitrogen 17 mg/dL (8-23); Calcium 9.2 mg/dL (8.5-10.5); Carbon Dioxide 25 mmol/L (22-29); Chloride 98 mmol/L (98-107); Creatinine Clr Calc Pharmacy 94.4941; Globulin 3.1 g/dL (1.3-4.6); Glomerular Filtration Rate 297.3 mL/min (90-130); Glucose 111 mg/dL (65-115); Osmolality Calculated 280 mOsm/kg (285-295); Phosphorus 3.1 mg/dL (2.5-4.5); Sodium 134 mmol/L (136-145); Total Bilirubin 0.4 mg/dL (0.15-1.2)
[2023-12-09] MEDS: aspirin 81 mg EC Tablet PO (05:19)
[2023-12-09] MEDS: meropenem 1,000 mg SDV 1000 MG IVP ×3 (05:21→20:40)
[2023-12-09] MEDS: fluconazole premix 200 MG/100 ML PREMIX 100 MG IV (06:06)
[2023-12-09] MEDS: budesonide 0.5 mg/2 mL Neb INHALATION ×2 (07:55→20:18)
[2023-12-09] MEDS: nystatin powder 15 gm Btl 1 APPLIC TOPICAL ×2 (08:09→17:36)
[2023-12-09] MEDS: pantoprazole 40 mg SDV IVP ×2 (08:09→20:33)
[2023-12-09] MEDS: midodrine 5 mg TABLET PO ×3 (08:09→20:47)
[2023-12-09] MEDS: levETIRAcetam 1,000 mg/10 mL UDC 500 MG NG-TUBE ×2 (08:09→17:35)
[2023-12-09] MEDS: vancomycin 100 mg/1 mL Oral Syringe 125 MG PO ×4 (08:09→20:46)
[2023-12-09] MEDS: zinc gluconate 50 mg Tablet PO (08:12)
--- NOTE | 2023-12-09 08:48 | PC.NURSE ---
During morning assessments, patient follow commands. Answers yes/no questions by nodding, will look towards sounds, squeeze his right hand to command, appears to understand when nurse is explaining situation. During morning neuro assessments patient was able to use the right hand only. Left hand/arm are flaccid. Nurse did not find this previously charted. There is recent imaging indicating DVTs to the right leg. Nurse alerted Dr Dodd. Was advised he will review the chart, likely order a head CT and start heparin. Nurse will continue to monitor for new orders.
--- NOTE | 2023-12-09 08:55 | CT_ITS ---
WS: [id number] CT HEAD TECHNIQUE: Noncontrast CT of the head obtained from the skullbase to the vertex. CLINICAL INFORMATION: Right arm deficit COMPARISON: CT 12/03/2023 DLP: 1836.[address] scans at [facility] use at least one of these dose optimization techniques: automated e xposure control; mA and/or kV adjustment per patient size (includes targeted exams where dose is matc hed to clinical indication); or iterative reconstruction. FINDINGS: No evidence of intracranial hemorrhage or mass effect. Ventricular system and basal cisterns are blake nt. Moderate small vessel changes with moderate parenchymal volume loss. No extra-axial fluid collect ions. No evidence of mass or mass effect. Paranasal sinusitis. Fluid in the posterior nasopharynx. CT/CT head wo con* [id number] IMPRESSION: 1. No evidence of intracranial hemorrhage or mass effect. 2. Moderate small vessel changes. Moderate parenchymal volume loss. 3. Paranasal sinusitis with air-fluid levels and inspissated secretions. Mucos al thickening in the RIGHT greater than LEFT mastoid air cells. 4. Fluid in the posterior nasopharynx. 5. No no new intracranial findings.
[2023-12-09 09:23] LABS: Vancomycin Trough 15.6 ug/mL (10-15)
[2023-12-09] MEDS: vancomycin 1,250 MG/250 ML PIGGYBACK 200 MG IV (11:18)
[2023-12-09 11:47] LABS: Glucose Point of Care 146 mg/dL (70-110)
--- NOTE | 2023-12-09 12:34 | P.PN_ITS ---
Subjective 2 Subjective: Per report, no significant acute changes overnight. TRANSPLANT COORDINATOR does notice flaccid arm which has been present for a couple of days but is new for the patient overall. There is been no head imaging in the interim since this is developed. Will proceed with CT imaging today. He remains vent dependent. Will continue with trials of pressure support but he wears out quickly. He is getting these very prolonged we need to get off the ventilator. Distal need be done in LTAC. Will follow-up with case management regarding denial. Unfortunately his insurance company is delaying his care and causing him more morbidity by doing this. I was able meet with his spouse bedside. We do long conversation regarding goals of care. We discussed about expectations regarding care moving forward. We did discuss about his advanced directives. Advance directives did note he did not want to be vent dependent. She wants to talk to more of the family members before changing any more goals of care further advance care planning. He is currently a DNR should he go into cardiac arrest. Medications: Reviewed: Yes Vitals/I&O/Wt Last Vital Signs Temp 98.9 F 12/09/23 08:30 Pulse 90 12/09/23 10:30 Resp 30 H 12/09/23 11:27 BP 82/58 12/09/23 10:30 Pulse Ox 97 12/09/23 11:27 O2 Del Method Mechanical Ventilation 12/09/23 08:30 O2 Flow Rate 12/01/23 19:54 FiO2 12/09/23 11:27 12/08/23 12/09/23 12/09/23 22:59 06:59 14:59 Intake Total 1506 / 1506 560 / 2066 0 / 0 Output Total 1200 / 1200 900 / 2100 0 / 0 Balance 306 / 306 -340 / -34 0 / 0 Weight last 48 hrs Weight 84.822 kg Weight 92.5 kg Physical Exam 2 Narrative: General: Patient is awake. Ill-appearing. Head: Normocephalic. Atraumatic. EOM intact. Hard of hearing. Neck: No JVD. Tracheostomy. Cardiovascular: RRR. No gallops. No murmurs. Lungs: Breath sounds are diminished. No crackles. No wheezing. Trach. Skin: No jaundice. No rashes. Abdomen: Normal bowel sounds, abdomen soft and nontender. Feeding tube. Extremities: No cyanosis or clubbing. Musculoskeletal: No erythematous joints. Neurological: No myoclonus. Urinary Catheter Management: Strange: Cath Placed During This Visit: yes Reason for Continuing Indwelling Catheter: Accurate Measurement of Urinary Output in Critically Ill Patients Urinary Catheter Date of Insertion: 11/21/23 Urinary Catheter Time of Insertion: 11:40 Data 12/09/23 02:45 12/09/23 02:45 Micro: Microbiology 12/03/23 16:33 Blood Culture - Final Blood NO GROWTH AFTER 5 DAYS 12/03/23 13:31 Blood Culture - Final Blood NO GROWTH AFTER 5 DAYS A&P Assessment and plan (1) Acute hypoxic respiratory failure: Trach change 12/07, still cuffed as he is on the vent Still requiring significant ventilator support. Will continue with pressure support trials which he is poorly tolerating. He needs to go to an LTACH facility - [facility] evaluating where weaning trials can continue, where case management manager will be available, and complete care team to deal with new tracheostomies Unfortunately his terrible insurance is delaying his care and causing patient more morbidity (2) Septic shock: Previous Urine Cath and Sputum tested positive for yeast, continue on fluconazole (12/04-present) Continue midodrine Continue meropenem and vancomycin currently for VAP. MRSA nasal swab ordered but not collected (3) Epistaxis: Continue Afrin regimen as suggested by ENT Should blood thinner start later today, will need to monitor for worsening epistaxis (4) DVT (deep venous thrombosis): Will plan for heparin drip later today pending head CT results (5) C. difficile colitis: Continue vanc p.o (11/25-present) will continue oral vancomycin while he is still on systemic antibiotics (6) Anemia: Hemoglobin stable today. Last transfusion December 04. (7) Small cell lung cancer: Outpatient follow up, follows w/ Dr Recinos Qualifiers: Laterality: unspecified laterality Lung location: unspecified part of lung Qualified Code(s): C34.90 - Malignant neoplasm of unspecified part of unspecified bronchus or lung (8) COVID-19: Resolved Plan Hypotension: On midodrine Acute encephalopathy: Head CT Flacid RUE: Head CT ordered. Twitching: Continue Keppra for possible prior seizure like activity DNR DPOA Attestations 2 Medical Necessity Statement*: Patient requires ongoing hospitalization for ventilator support, IV antibiotics, nutrition, IV analgesics, serial labs, and supportive care. Critical Care Time: The high probability of a clinically significant, sudden or life threatening deterioration of the patient's respiratory, vascular, neuro system(s) required my full and direct attention, intervention and personal management. The critical care time is as shown. This time is in addition to time spent performing any reported procedures but includes the following: [x] Data and vital sign review and interpretation [x] Patient assessment, examination and intervention [x] Documentation [x] Medication orders and management Critical care time also includes extensive meeting with spouse/DPOA to discuss goals of care at length and provide psychosocial support. Critical Care Time (min): 110 Coding Level of Care Code Acute Code for g Fwd Diagnoses Acute hypoxic respiratory failure J96.01 Septic shock A41.9; R65.21 Epistaxis R04.0 DVT (deep venous thrombosis) I82.409 C. difficile colitis A04.72 Anemia D64.9 Small cell carcinoma of lung, unspecified laterality, unspecified part of lung C34.90 Laterality: unspecified laterality Lung location: unspecified part of lung COVID-19 U07.1
[2023-12-09] MEDS: oxyCODONE 5 mg IR Tab/Cap PO ×2 (14:40→20:47)
[2023-12-09 15:13] LABS: Partial Thromboplastin Time 28.5 SECONDS (23.9-36.7)
[2023-12-09] MEDS: heparin drip 25,000 UNIT/500 ML PREMIX 23.75 UNIT IV (16:28)
--- NOTE | 2023-12-09 19:05 | PC.NURSE ---
Addendum entered by Jeff Dickson RN 12/09/23 19:06: Shift SUmmary: Uneventful shift. Head CT shows no acute findings. Started on heparin drip. Still waiting on placement at [facility], placement is pending appeal. Original Note: Shift SUmmary: Uneventful shift. Head CT shows no acute findings. Started on heparin drip.
[2023-12-09] MEDS: LORazepam 0.5 mg Tablet NG-TUBE (20:47)
[2023-12-09 22:52] LABS: Partial Thromboplastin Time 69.5 SECONDS (23.9-36.7)
[2023-12-10] VITALS (26 sets, daily range): BP systolic 78–110; BP diastolic 45–71; PULSE 76–101; RESP 14–24; TEMP 36.6–37.6; O2SAT 94–100
[2023-12-10] MEDS: ipratropium-albuterol 3 mL Neb INHALATION ×2 (01:33→07:44)
[2023-12-10] MEDS: oxymetazoline 0.05% Nasal Spray 15 mL 4 SPRAY NOSTRIL-B (02:16)
[2023-12-10] MEDS: chlorhexidine gluconate 4% Btl 118 mL 1 APPLIC TOPICAL (04:12)
[2023-12-10] MEDS: vancomycin 1,250 MG/250 ML PIGGYBACK 200 MG IV (04:16)
[2023-12-10] MEDS: meropenem 1,000 mg SDV 1000 MG IVP (04:31)
[2023-12-10 05:09] LABS: Basophils # 0.1 10^3/uL (0.0-0.1); Eosinophils # 0.1 10^3/uL (0.0-0.8); Hematocrit 26.1 % (37-53); Lymphocytes # 0.8 10^3/uL (0.8-4.8); Lymphocytes % 15.8 %; Mean Corpuscular Hemoglobin 30.8 pg (27-33); Mean Corpuscular Volume 99.2 fl (82-101); Mean Platelet Volume 11.5 fL (7.4-10.4); Monocytes # 0.4 10^3/uL (0.2-0.9); Monocytes % 8.5 %; Neutrophils # 3.55 10^3/uL (1.8-7.7); Neutrophils % 68.1 %; Nucleated Red Blood Cells % 0 %; Platelet Count 241 10^3/cmm (157-399); Red Blood Count 2.63 10^6/uL (3.85-5.65); Red Cell Distribution Width 18.2 % (12.1-15.1)
[2023-12-10 05:26] LABS: Partial Thromboplastin Time 72.2 SECONDS (23.9-36.7)
[2023-12-10] MEDS: aspirin 81 mg EC Tablet PO (05:29)
[2023-12-10] MEDS: oxyCODONE 5 mg IR Tab/Cap PO (05:29)
[2023-12-10 05:32] LABS: Alanine Aminotransferase 33 U/L (0-41); Albumin Level 2.9 g/dL (3.5-5.2); Alkaline Phosphatase 126 U/L (40-130); Anion Gap 14.4 (5-19); Aspartate Amino Transferase 22 U/L (0-40); Blood Urea Nitrogen 20 mg/dL (8-23); Calcium 9.2 mg/dL (8.5-10.5); Carbon Dioxide 27 mmol/L (22-29); Chloride 101 mmol/L (98-107); Creatinine Clr Calc Pharmacy 90.7084; Glomerular Filtration Rate 213.3 mL/min (90-130); Glucose 136 mg/dL (65-115); Magnesium 2.1 mg/dL (1.7-2.3); Osmolality Calculated 291 mOsm/kg (285-295); Phosphorus 3.3 mg/dL (2.5-4.5); Potassium 4.4 mmol/L (3.5-5.1); Sodium 138 mmol/L (136-145); Total Bilirubin 0.3 mg/dL (0.15-1.2); Total Protein 5.9 g/dL (6.6-8.7)
[2023-12-10 05:44] LABS: Slide Review Slide Review Perform
[2023-12-10] MEDS: fluconazole premix 200 MG/100 ML PREMIX 100 MG IV (06:22)
[2023-12-10] MEDS: budesonide 0.5 mg/2 mL Neb INHALATION (07:44)
[2023-12-10 08:12] LABS: Glucose Point of Care 142 mg/dL (70-110)
[2023-12-10] MEDS: pantoprazole 40 mg SDV IVP (08:28)
[2023-12-10] MEDS: levETIRAcetam 1,000 mg/10 mL UDC 500 MG NG-TUBE (08:28)
[2023-12-10] MEDS: vancomycin 100 mg/1 mL Oral Syringe 125 MG PO (08:28)
[2023-12-10] MEDS: nystatin powder 15 gm Btl 1 APPLIC TOPICAL (08:29)
[2023-12-10] MEDS: midazolam 1 mg/mL INJ 2 mL 2 MG IVP (09:50)
[2023-12-10] MEDS: morphine 4 mg/mL SDV 1 mL 8 MG IVP (09:53)
[2023-12-10] MEDS: morphine 4 mg/mL SDV 1 mL IVP ×6 (11:27→23:55)
[2023-12-10] MEDS: LORazepam 2 mg/mL INJ 1 mL 1 MG IVP ×5 (11:27→23:55)
[2023-12-10] MEDS: glycopyrrolate 0.2 mg/mL SDV 2 mL IV ×2 (11:32→15:45)
--- NOTE | 2023-12-10 12:02 | PC.SOCIAL ---
IMM Updated IMM dated and initialed and placed in chart and copy given to
--- NOTE | 2023-12-10 12:22 | PM.PN ---
Subjective Subjective: Patient noted to be less responsive this morning. Overnight there were no acute events per signout. Met with spouse and family later this morning. They clearly care very much for Karl. They clearly want the best for him. They do not want him to suffer. We discussed goals of care at length. They would like to honor the patient's wishes as do not continue ventilator support or other means of life support. We continued advance care planning and goals of care conversation that we had previously started in prior days. We discussed comfort care plan of action. She notes that they will be further family members visiting later this morning. She would like to start comfort care this morning. Medications: Reviewed: Yes Vitals/I&O/Wt Last Vital Signs Temp 97.8 F 12/10/23 04:30 Pulse 76 12/10/23 08:02 Resp 14 12/10/23 11:27 BP 90/58 12/10/23 06:00 Pulse Ox 98 12/10/23 09:53 O2 Del Method Mechanical Ventilation 12/10/23 07:45 O2 Flow Rate 12/01/23 19:54 FiO2 28 12/10/23 07:45 12/09/23 12/10/23 12/10/23 22:59 06:59 14:59 Intake Total 1114 / 1114 1148.312 / 2262.312 Output Total 400 / 1600 100 / 100 Balance 1114 / -86 748.312 / 662.312 -100 / -100 Weight last 48 hrs Weight 84.822 kg Weight 84.822 kg Physical Exam Narrative: General: Patient is lethargic. Head: Normocephalic. Atraumatic. Neck: No JVD. Tracheostomy. Cardiovascular: RRR. No gallops. No murmurs. Lungs: Breath sounds are diminished. No crackles. No wheezing. Trach. Skin: No jaundice. No rashes. Abdomen: Normal bowel sounds, abdomen soft and nontender. Feeding tube. Extremities: No cyanosis or clubbing. Musculoskeletal: No erythematous joints. Neurological: No myoclonus. Urinary Catheter Management: Strange: Cath Placed During This Visit: yes Reason for Continuing Indwelling Catheter: Accurate Measurement of Urinary Output in Critically Ill Patients Urinary Catheter Date of Insertion: 11/21/23 Urinary Catheter Time of Insertion: 11:40 Data 12/10/23 04:30 12/10/23 04:30 A&P Assessment and plan (1) Acute hypoxic respiratory failure: Proceed with comfort care measures, discussed with case management and will have inpatient hospice assess Discontinue life-prolonging measures including further enteral feeds, vent support, vasopressor support, anticoagulants, further labs, and other life-prolonging measures Start comfort care measures only focusing on symptomatology Protect patient's dignity Psychosocial support for patient and family (2) Septic shock: (3) Epistaxis: (4) DVT (deep venous thrombosis): (5) C. difficile colitis: (6) Anemia: (7) Small cell lung cancer: Qualifiers: Laterality: unspecified laterality Lung location: unspecified part of lung Qualified Code(s): C34.90 - Malignant neoplasm of unspecified part of unspecified bronchus or lung (8) COVID-19: Attestations Medical Necessity Statement*: Patient is remain in the hospital as we transition from life support to comfort care measures. Critical Care Time: The high probability of a clinically significant, sudden or life threatening deterioration of the patient's pulmonary, nutritional, neurological system(s) required my full and direct attention, intervention and personal management. The critical care time is as shown. This time is in addition to time spent performing any reported procedures but includes the following: [x] Data and vital sign review and interpretation [x] Patient assessment, examination and intervention [x] Documentation [x] Medication orders and management Critical Care Time (min): 60 Coding Level of Care Code Acute Code for [facility] Fwd Diagnoses Acute hypoxic respiratory failure J96.01 Septic shock A41.9; R65.21 Epistaxis R04.0 DVT (deep venous thrombosis) I82.409 C. difficile colitis A04.72 Anemia D64.9 Small cell carcinoma of lung, unspecified laterality, unspecified part of lung C34.90 Laterality: unspecified laterality Lung location: unspecified part of lung COVID-19 U07.1
[2023-12-10] MEDS: atropine 1% op soln 2 mL Btl 3 DROP SUBLINGUAL (13:52)
--- NOTE | 2023-12-10 19:27 | PC.NURSE ---
Shift SUmmary: Uneventful shift. Changed to comfort care measures today. Patient has rested in bed comfortably, occaisonally requiring morphine for air hunger, and ativan for restlessness and anxiety. Atropine and glycopyrolate have been effective at managing secretions. Currently waiting on private room on [facility].
--- NOTE | 2023-12-10 21:42 | PC.NURSE ---
Patient transfer Patient transferred to room 273 on med-surg. Transported on portable oxygen canister. Nurse Nadya bedside. Family present upon transfer.
--- NOTE | 2023-12-10 23:05 | PC.NURSE ---
refuses bed bath, stating he just had once last night, so let's just leave him alone for tonight. If he's still here tomorrow night, we'll do one then.
[2023-12-11] MEDS: LORazepam 2 mg/mL INJ 1 mL 1 MG IVP ×5 (01:38→08:03)
[2023-12-11] MEDS: morphine 4 mg/mL SDV 1 mL IVP ×5 (01:38→08:03)
[2023-12-11] MEDS: atropine 1% op soln 2 mL Btl 3 DROP SUBLINGUAL (02:48)
[2023-12-11] MEDS: lanolin oint 7 gm 1 APPLIC TOPICAL (04:03)
[2023-12-11 07:56] VITALS: BP 87/60; PULSE 20; RESP 20; TEMP 37.4; O2SAT 93
[2023-12-11 08:03] VITALS: RESP 18
--- NOTE | 2023-12-11 08:42 | P.PN_ITS ---
Subjective 2 Subjective: Patient on comfort care measures. Appears comfortable this morning. No signs of distress. Family is bedside and very supportive. Medications: Reviewed: Yes Vitals/I&O/Wt Last Vital Signs Temp 99.3 F 12/11/23 07:56 Pulse 20 L 12/11/23 07:56 Resp 18 12/11/23 08:03 BP 87/60 12/11/23 07:56 Pulse Ox 93 12/11/23 07:56 O2 Del Method Mechanical Ventilation 12/10/23 07:45 O2 Flow Rate 12/01/23 19:54 FiO2 12/10/23 07:45 12/10/23 12/11/23 12/11/23 22:59 06:59 14:59 Intake Total 0 / 0 Output Total 1800 / 1900 400 / 2300 Balance -1800 / -1900 -400 / -2300 Weight last 48 hrs Weight 85.321 kg Weight 84.822 kg Physical Exam 2 Narrative: General: Patient is in a stuporous state. Head: Normocephalic. Neck: No JVD. Tracheostomy. Cardiovascular: Hypotensive. Lungs: Symmetric chest rise. Trach. Skin: No jaundice. No rashes. Abdomen: Feeding tube. Extremities: No cyanosis or clubbing. Musculoskeletal: No erythematous joints. Neurological: No myoclonus. Urinary Catheter Management: Strange: Cath Placed During This Visit: yes Reason for Continuing Indwelling Catheter: Hospice/Comfort/Palliative Care Urinary Catheter Date of Insertion: 11/21/23 Urinary Catheter Time of Insertion: 11:40 Data 12/10/23 04:30 12/10/23 04:30 A&P Assessment and plan (1) Acute hypoxic respiratory failure: Continue aggressive treat symptoms Continue current medications, adjust based upon symptoms Protect patient's dignity Psychosocial support for patient and family (2) Septic shock: (3) Epistaxis: (4) DVT (deep venous thrombosis): (5) C. difficile colitis: (6) Anemia: (7) Small cell lung cancer: Qualifiers: Laterality: unspecified laterality Lung location: unspecified part of lung Qualified Code(s): C34.90 - Malignant neoplasm of unspecified part of unspecified bronchus or lung (8) COVID-19: Attestations 2 Medical Necessity Statement*: Patient requires ongoing hospitalization for symptoms control, end of life care, and psychosocial support. Coding Level of Care Code Acute Code for Chg Fwd Diagnoses Acute hypoxic respiratory failure J96.01 Septic shock A41.9; R65.21 Epistaxis R04.0 DVT (deep venous thrombosis) I82.409 C. difficile colitis A04.72 Anemia D64.9 Small cell carcinoma of lung, unspecified laterality, unspecified part of lung C34.90 Laterality: unspecified laterality Lung location: unspecified part of lung COVID-19 U07.1
--- NOTE | 2023-12-11 13:06 | P.DS_ITS ---
Discharge Providers Date of Admission: 11/21/23 16:20 Date of Discharge: December 11, 2023 Attending Provider at Admission: Garth Crowder MD Attending Provider at Discharge: Yogi Dodd MD Consults: Cardiology ENT General Surgery Primary Care Provider: Lianet Hannah MD Diagnoses at Discharge Discharge Diagnosis (1) Acute hypoxic respiratory failure: Status: Acute (2) Septic shock: Status: Acute (3) Epistaxis: Status: Acute (4) DVT (deep venous thrombosis): Status: Acute (5) C. difficile colitis: Status: Acute (6) Anemia: Status: Acute (7) Small cell lung cancer: Status: Acute Qualifiers: Laterality: unspecified laterality Lung location: unspecified part of lung Qualified Code(s): C34.90 - Malignant neoplasm of unspecified part of unspecified bronchus or lung (8) COVID-19: Status: Acute Reason for Visit Reason for Visit: UNRESPONSIVE Hospital Course Hospital Course Karl Martinez is a 68-year-old male with a past medical history significant for metastatic small cell cancer, chronic back pain, GERD, coronary artery disease, hypertension, AAA, COPD, and multiple other comorbidities who initially presented with unresponsiveness, found to have acute respiratory failure requiring intubation mechanical ventilation, C. difficile colitis, acute metabolic encephalopathy, and COVID-19 infection. He had a prolonged complicated hospital course. He responded poorly to treatment. Patient went on to develop septic shock with urine noted to be positive for yeast treated with fluconazole. He was also treated with broad-spectrum antibiotics of vasopressor support. Further workup revealed epistaxis which required packing through ENT. He was found to have deep vein thrombosis. Patient has IVC filter and was dorota efly treated with heparin drip. Patient was found to have anemia likely multifactorial in nature requiring transfusions. He was found to have pneumonia treated with antibiotics. He eventually required tracheostomy and PEG tube placement. Patient failed to respond to vent weaning trials initially. Therefore plans to transition patient to long-term acute care hospital for further vent weaning were undertaken. Through multiple family meetings and review of patient's advanced directives as well as input for the patient himself, transition care to comfort care measures. Hospice consulted and patient accepted to general inpatient admission under hospice care. Physical Exam Narrative: General: Patient is in a stuporous state. Head: Normocephalic. Neck: No JVD. Tracheostomy. Cardiovascular: Hypotensive. Lungs: Symmetric chest rise. Trach. Skin: No jaundice. No rashes. Abdomen: Feeding tube. Extremities: No cyanosis or clubbing. Musculoskeletal: No erythematous joints. Neurological: No myoclonus. Urinary Catheter Management: Strange: Cath Placed During This Visit: yes Reason for Continuing Indwelling Catheter: Hospice/Comfort/Palliative Care Urinary Catheter Date of Insertion: 11/21/23 Urinary Catheter Time of Insertion: 11:40 Discharge Data Studies Completed and Pending Completed Studies During Hospitalization Category Date Time Status CT chest abdomen pelvis [CT chest abdpel w/*[id number] Cat Scan 11/21/23 11:39 Completed ] Stat CT chest wo con [id number] Routine Cat Scan 11/25/23 11:[address] head wo con* [id number] Routine Cat Scan 11/25/23 09:[address] head wo con* [id number] Stat Cat Scan 11/21/23 11:[address] head wo con* [id number] Stat Cat Scan 12/03/23 09:[address] head wo con* [id number] Urgent Cat Scan 12/09/23 08:[address] neck w con* [id number] Routine Cat Scan 11/30/23 19:07 Completed [employer] request for service Routine Exams 11/26/23 07:50 Completed CXRP [XR chest 1V portable [id number]] Routine Exams 11/25/23 09:05 Completed CXRP [XR chest 1V portable [id number]] Routine Exams 11/29/23 11:51 Completed XR chest 1V portable [id number] DAILY Exams 11/22/23 15:30 Completed XR chest 1V portable 32497 QAM Exams 11/23/23 09:09 Completed XR chest 1V portable [id number] QAM Exams 11/24/23 09:09 Completed XR chest 1V portable 54748 QAM Exams 11/25/23 09:09 Completed XR chest 1V portable [id number] Routine Exams 12/03/23 12:44 Completed XR chest 1V portable [id number] Stat Exams 11/21/23 11:04 Completed XR chest 1V portable [id number] Stat Exams 11/24/23 19:14 Completed XR chest 1V portable [id number] Stat Exams 11/30/23 19:02 Completed CV. echo complete* [id number] Routine Ultrasound 11/23/23 16:03 Completed US venous duplex lower extremity bilat [CV venous Ultrasound 11/24/23 11:23 [place] [id number]] Routine Radiology Impressions Chest/Abdomen/Pelvis CT 11/21/23 11:39 IMPRESSION: 1. Patient is status post treatment for RIGHT lung cancer. Pulmonary fibrotic changes centrally are reidentified. 2. Acute bilateral groundglass attenuation, opacifications and atelectasis. Lung volumes are decreased. Suspect acute pneumonitis. 3. Patient is intubated. 4. Nasogastric tube in good position. 5. No pneumothorax. 6. No renal obstruction. 7. Significant fluid and air distention of the colon. There is no wall thickening or pneumatosis. The distal colon there is slight wall thickening and enhancement suggesting a mild colitis. With the increasing fluid and colon diameter ileus should be considered. 8. No free fluid. 9. Status post endovascular graft repair abdominal aorta, no complications. Chest CT 11/25/23 11:39 IMPRESSION: 1. Multifocal patchy bilateral pulmonary infiltrates appear similar to the prior study. 2. Moderate right pleural effusion enlarged when compared to the prior study. Small left pleural effusion. 3. Multivessel atherosclerotic disease which involves the coronary arteries. Neck CT 11/30/23 19:07 IMPRESSION: Complex fluid extending from the nasal cavity through the nasopharynx and oropharynx into the larynx, most compatible with hematoma. An enhancing vessel is seen along the posterior nasopharynx adjacent to the adenoids. Limited assessment of this vessel given the single phase of contrast. However, bleeding from this vessel cannot be excluded. Chest X-Ray 12/03/23 12:44 IMPRESSION: Multifocal pneumonia. Head CT 12/09/23 08:55 IMPRESSION: 1. No evidence of intracranial hemorrhage or mass effect. 2. Moderate small vessel changes. Moderate parenchymal volume loss. 3. Paranasal sinusitis with air-fluid levels and inspissated secretions. Mu cosal thickening in the RIGHT greater than LEFT mastoid air cells. 4. Fluid in the posterior nasopharynx. 5. No no new intracranial findings. Laboratory Results WBC 5.20 10^3/uL (3.29-11.43) 12/10/23 04:30 RBC 2.63 10^6/uL (3.85-5.65) L 12/10/23 04:30 Hgb 8.10 g/dL (11.27-16.99) L 12/10/23 04:30 Hct 26.1 % (37-53) L 12/10/23 04:30 MCV 99.2 fl (82-101) 12/10/23 04:30 MCH 30.8 pg (27-33) 12/10/23 04:30 MCHC 31.0 g/dL (30-55) 12/10/23 04:30 RDW 18.2 % (12.1-15.1) H 12/10/23 04:30 Plt Count 241 10^3/cmm (157-399) 12/10/23 04:30 MPV 11.5 fL (7.4-10.4) H 12/10/23 04:30 Neut % (Auto) 68.1 % 12/10/23 04:30 Lymph % (Auto) 15.8 % 12/10/23 04:30 [place] % (Auto) 8.5 % 12/10/23 04:30 Eos % (Auto) 1.0 % 12/10/23 04:30 Baso % (Auto) 1.0 % 12/10/23 04:30 Neut # (Auto) 3.55 10^3/uL (1.8-7.7) 12/10/23 04:30 Lymph # (Auto) 0.8 10^3/uL (0.8-4.8) 12/10/23 04:30 [place] # (Auto) 0.4 10^3/uL (0.2-0.9) 12/10/23 04:30 Eos # (Auto) 0.1 10^3/uL (0.0-0.8) 12/10/23 04:30 Baso # (Auto) 0.1 10^3/uL (0.0-0.1) 12/10/23 04:30 Nucleated RBC % (auto) 0 % 12/10/23 04:30 Total Counted 100 (0-100) 11/24/23 19:50 Atypical Lymphs % Not Reportable 11/24/23 19:50 Absolute Neutrophils 5.8 10^3/cmm (1.4-6.5) 11/24/23 19:50 Segmented Neutrophils 81 % 11/24/23 19:50 Abs Segm Neuts (Man) 5.0 10/cmm (1.6-7.1) 11/24/23 19:50 Band Neutrophils 14.0 % 11/24/23 19:50 Abs Band Neuts (Man) 0.9 10^3/cmm (0.0-1.2) 11/24/23 19:50 Absolute Lymphocytes 0.8 10^3/cmm (1.2-3.4) L 11/21/23 11:05 Lymphocytes (Manual) 4 % 11/24/23 19:50 Monocytes (Manual) 0.0 % 11/24/23 19:50 Absolute Monocytes 0.0 10^3/cmm (0.1-0.6) L 11/24/23 19:50 Eosinophils (Manual) 0 % 11/24/23 19:50 Absolute Eosinophils 0.0 10^3/cmm (0.0-0.7) 11/24/23 19:50 Basophils (Manual) 0.0 % 11/24/23 19:50 Absolute Basophils 0.0 10^3/cmm (0.0-0.2) 11/24/23 19:50 Nucleated RBCs 1.0 /100WBC (0-1) 11/24/23 19:50 Nucleated RBCs # 0.0 /100WBC 12/10/23 04:30 Platelet Estimate Decreased (Normal) 11/24/23 19:50 Giant Platelets Trace 11/21/23 11:05 Hypochromasia 2+ H 11/29/23 02:56 Anisocytosis 1+ H 11/29/23 02:56 Tear Drop Cells Trace 11/29/23 02:56 PT 13.70 SECONDS (12.1-14.9) 11/30/23 20:51 INR 1.02 (0.8-1.2) 11/30/23 20:51 APTT 72.2 SECONDS (23.9-36.7) H 12/10/23 04:30 D-Dimer 3.11 ug/mLFEU (0-0.59) H 11/24/23 16:31 Specimen Type Arterial 12/03/23 09:42 Sample Site Radial, left 12/03/23 09:42 O2 Sat Pulse Oximetry Cancelled 11/21/23 18:13 ABG pH 7.48 (7.35-7.45) H 12/03/23 09:42 ABG pCO2 28.4 mmHg (35-45) L 12/03/23 09:42 ABG pO2 66.2 mmHg (80.0-100.0) L 12/03/23 09:42 ABG PO2/FiO2 Ratio 189 12/03/23 09:42 ABG HCO3 20.9 mmol/L (22-26) L 12/03/23 09:42 ABG O2 Saturation 94.4 12/03/23 09:42 ABG Base Excess -2.0 mmol/L (-2.0-2.0) 12/03/23 09:42 Juan Test Pos 12/03/23 09:42 A-a O2 Gradient 19.1 mmHg (5-10) H 12/03/23 09:42 Hematocrit 28.0 % (42-52) L 12/03/23 09:42 Hgb O2 Saturation 92.8 % (95-100) L 12/03/23 09:42 Carboxyhemoglobin 1.5 %THgb (0.4-20.1) 12/03/23 09:42 Methemoglobin 0.2 % (0.4-1.5) L 12/03/23 09:42 Total Hemoglobin 9.1 g/dL (14-18) L 12/03/23 09:42 Sodium 135.0 mmol/L (131-143) 12/03/23 09:42 Potassium 3.8 mmol/L (3.5-5.0) 12/03/23 09:42 Glucose 112.0 mg/dL (70-115) 12/03/23 09:42 Ionized Calcium 1.3 mmol/L (1.1-1.4) 12/03/23 09:42 Respiration Rate Cancelled 11/21/23 18:13 O2 Delivery Device Vent 12/03/23 09:42 O2 Liters/Min 5.0 % 11/30/23 18:07 SIMV Cancelled 11/21/23 18:13 Vent Mode Cancelled 11/21/23 18:13 Mechanical Rate Cancelled 11/21/23 18:13 Spontaneous Rate Cancelled 11/21/23 18:13 FiO2 35.0 % 12/03/23 09:42 Tidal Volume 0.50 12/03/23 09:42 PEEP 5.0 cmH20 12/03/23 09:42 Pressure Support Cancelled 11/21/23 18:13 Pressure Control Cancelled 11/21/23 18:13 CPAP Cancelled 11/21/23 18:13 Mode BiPAP Cancelled 11/21/23 18:13 Specimen Drawn By Cancelled 11/21/23 18:13 Rolled Ham Lacer ID Fadi 12/03/23 09:42 Crit Value Read Back Cancelled 11/21/23 18:13 Blood Gas Notified Time Cancelled 11/21/23 18:13 Sodium 138 mmol/L (136-145) 12/10/23 04:30 Potassium 4.4 mmol/L (3.5-5.1) 12/10/23 04:30 Chloride 101 mmol/L (98-107) 12/10/23 04:30 Carbon Dioxide 27 mmol/L (22-29) 12/10/23 04:30 Anion Gap 14.4 (5-19) 12/10/23 04:30 BUN 20 mg/dL (8-23) 12/10/23 04:30 Creatinine 0.4 mg/dL (0.7-1.2) L 12/10/23 04:30 GFR Calculation 213.3 mL/min (90-130) H 12/10/23 04:30 Glucose 136 mg/dL (65-115) H 12/10/23 04:30 POC Glucose 142 mg/dL (70-110) H 12/10/23 08:09 Estimat Average Glucose 114 11/22/23 05:47 Hemoglobin A1c 5.6 % (4.0-6.0) 11/22/23 05:47 Calculated Osmolality 291 mOsm/kg (285-295) 12/10/23 04:30 Lactic Acid 1.9 mmol/L (0.5-2.2) 11/21/23 11:05 Calcium 9.2 mg/dL (8.5-10.5) 12/10/23 04:30 Phosphorus 3.3 mg/dL (2.5-4.5) 12/10/23 04:30 Magnesium 2.1 mg/dL (1.7-2.3) 12/10/23 04:30 Total Bilirubin 0.3 mg/dL (0.15-1.2) 12/10/23 04:30 AST 22 U/L (0-40) 12/10/23 04:30 ALT 33 U/L (0-41) 12/10/23 04:30 Alkaline Phosphatase 126 U/L (40-130) 12/10/23 04:30 Troponin T 5th Gen ng/L 31 ng/L (0-15) H 11/24/23 19:50 Troponin T Baseline 132 ng/L (0-15) H* 11/21/23 11:05 Troponin T 120 Minute 127.4 ng/L (0-15) H 11/21/23 13:40 Delta Troponin T -4.6 ABS# (0-10) L 11/21/23 13:40 Troponin T Hi Sens 6Hr 99.27 ng/L (0-15) H 11/21/23 18:59 Troponin T Hi Sens 6Hr Delta -32.73 ng/L (0-12) L 11/21/23 18:59 C-Reactive Protein 80.5 mg/L (0.0-4.9) H 11/26/23 05:40 NT-Pro-B Natriuret Pep 3248 pg/mL (0-125) H 11/24/23 19:50 Total Protein 5.9 g/dL (6.6-8.7) L 12/10/23 04:30 Albumin 2.9 g/dL (3.5-5.2) L 12/10/23 04:30 Globulin 3.0 g/dL (1.3-4.6) 12/10/23 04:30 Triglycerides 83 mg/dL (0-150) 11/22/23 05:47 Cholesterol 109 mg/dL (0-200) 11/22/23 05:47 LDL Cholesterol, Calc 42 mg/dL (50-129) L 11/22/23 05:47 HDL Cholesterol 50 mg/dL (60-100) L 11/22/23 05:47 LDL/HDL Ratio 0.84 RATIO (0.00-3.22) 11/22/23 05:47 Cholesterol/HDL Ratio 2.18 mg/dL (1.0-5.00) 11/22/23 05:47 Lipase 9 U/L (13-60) L 11/21/23 11:05 Vitamin B12 1753 pg/mL (232-1245) H 11/21/23 11:05 Folate > 20.0 ng/mL (4.5-32.2) 11/22/23 05:47 Procalcitonin 15.45 ng/mL (0-0.5) H 11/22/23 17:14 Urine Color Yellow (Yellow) 12/03/23 12:53 Urine Appearance Cloudy (CLEAR) A 12/03/23 12:53 Urine pH 5 (5-7) 12/03/23 12:53 Ur Specific [place] 1.010 (1.005-1.030) 12/03/23 12:53 Urine Protein Neg (Negative) 12/03/23 12:53 Urine Glucose (UA) Norm (Normal) 12/03/23 12:53 Urine Ketones Negative (Negative) 12/03/23 12:53 Urine Blood Neg (Negative) 12/03/23 12:53 Urine Nitrate Negative (Negative) 12/03/23 12:53 Urine Bilirubin Neg (Negative) 12/03/23 12:53 Urine Urobilinogen Norm mg/dL (Negative) 12/03/23 12:53 Ur Leukocyte Esterase Trace (Negative) H 12/03/23 12:53 Urine RBC 0-4 /hpf (0-2) H 12/03/23 12:53 Urine WBC 10-15 /hpf (0-5) H 12/03/23 12:53 Ur Squamous Epith Cells 0-4 /hpf (0-5) H 12/03/23 12:53 Amorphous Sediment Not Reportable 12/03/23 12:53 Urine Bacteria Trace /hpf (NONE) 12/03/23 12:53 Urine Sperm 4+ /hpf 12/03/23 12:53 Ur Random Sodium 108 mmol/L 11/21/23 11:22 Ur Random Potassium 52 mmol/L 11/21/23 11:22 Ur Random Chloride 113 mmol/L 11/21/23 11:22 Vancomycin Trough 15.6 ug/mL (10-15) H 12/09/23 08:57 Salicylates < 0.3 mg/dL (3-10) L 11/21/23 11:05 Urine Opiates Screen Positive ng/mL (Negative) H 11/21/23 11:22 Acetaminophen < 5.0 ug/mL (10-30) L 11/21/23 11:05 Ur Barbiturates Screen Negative ng/mL (Negative) 11/21/23 11:22 Ur Phencyclidine Scrn Negative ng/mL (Negative) 11/21/23 11:22 Ur Amphetamines Screen Negative ng/mL (Negative) 11/21/23 11:22 U Benzodiazepines Scrn Negative ng/mL (Negative) 11/21/23 11:22 Urine Cocaine Screen Negative ng/mL (Negative) 11/21/23 11:22 U Marijuana (THC) Screen Negative ng/mL (Negative) 11/21/23 11:22 Ethyl Alcohol < 10 mg/dL (0-10) 11/21/23 11:05 Serum Ketones Negative (Negative) 11/21/23 11:05 Adenovirus (PCR) Cancelled 11/21/23 12:57 C. pneumoniae DNA (PCR) Cancelled 11/21/23 12:57 C. difficile (PCR) Positive (Negative) H 11/21/23 15:00 C.difficile Tox Confrm Negative (Negative) 11/21/23 15:00 Coronavirus (PCR) Positive (Negative) A 11/21/23 12:57 Coronavirus 229E (PCR) Cancelled 11/21/23 12:57 Human Metapneumovir PCR Cancelled 11/21/23 12:57 Influenza A (H1) PCR Cancelled 11/21/23 12:57 Influenza A (PCR) Negative (Negative) 11/21/23 12:57 Influ A (H1/09) PCR Cancelled 11/21/23 12:57 Influenza A (H3) PCR Cancelled 11/21/23 12:57 Influenza Type A (PCR) Cancelled 11/21/23 12:57 Influenza Type B (PCR) Negative (Negative) 11/21/23 12:57 M. pneumoniae (PCR) Cancelled 11/21/23 12:57 Parainfluenza 1 (PCR) Cancelled 11/21/23 12:57 Parainfluenza 2 (PCR) Cancelled 11/21/23 12:57 Parainfluenza 3 (PCR) Cancelled 11/21/23 12:57 Parainfluenza 4 (PCR) Cancelled 11/21/23 12:57 RSV (PCR) Negative (Negative) 11/21/23 12:57 RSV Type A (PCR) Cancelled 11/21/23 12:57 RSV Type B (PCR) Cancelled 11/21/23 12:57 Entero/Rhino (PCR) Cancelled 11/21/23 12:57 SARS-CoV-2 (PCR) Cancelled 11/21/23 12:57 MRSA (PCR) Not detected (NOT DETECTED) 11/22/23 20:10 Blood Type O Positive 12/05/23 07:07 Rho(D) Type Rh positive 12/05/23 07:07 Antibody Screen Negative 12/05/23 07:07 Crossmatch See Detail 12/05/23 07:07 Vitals Last Vital Signs Temp 99.3 F 12/11/23 07:56 Pulse 20 L 12/11/23 07:56 Resp 18 12/11/23 08:03 BP 87/60 12/11/23 07:56 Pulse Ox 93 12/11/23 07:56 O2 Del Method Mechanical Ventilation 12/10/23 07:45 O2 Flow Rate 28 12/01/23 19:54 FiO2 28 12/10/23 07:45 Discharge Plan Discharge Patient Disposition: Hospice - Medical Facility Condition: Stable Prescriptions: Continued Nitrostat 0.4 mg tablet, sublingual 0.4 mg SUBLINGUAL Q5M PRN (Reason: Chest Pain) Qty: 25 0RF Rx Instructions: do not exceed 3 doses per episode acetaminophen [Pain Relief (acetaminophen)] 650 mg tablet extended release 650 mg PO Q8H PRN (Reason: pain or inflammation) omeprazole 20 mg capsule,delayed release(DR/EC) 20 mg PO BID 90 Days Qty: 180 3RF sertraline [Zoloft] 25 mg tablet 25 mg PO DAILY 90 Days Qty: 90 2RF tizanidine 2 mg tablet 2 mg PO Q8H PRN (Reason: muscle spasticity) Qty: 90 5RF oxycodone 15 mg tablet 15 mg PO Q6H PRN (Reason: pain) 30 Days Qty: 120 0RF aspirin 81 mg tablet,delayed release (DR/EC) 81 mg PO QAM ferrous sulfate 325 mg (65 mg iron) tablet 325 mg PO QPM cholecalciferol (vitamin D3) 125 mcg (5,000 unit) capsule 125 mcg PO DAILY mecobalamin (vitamin B12) 500 mcg tablet,chewable 500 mcg PO DAILY Centrum Minis Men 50 Plus [phone] mcg tablet 1 tab PO DAILY acetaminophen-codeine 300-30 mg tablet 1 tab PO Q8H PRN (Reason: pain) 7 Days Qty: 21 1RF metoprolol tartrate 25 mg tablet 12.5 mg PO BID Qty: 30 0RF lorazepam 1 mg tablet 0.5 - 1 mg PO Q6H PRN (Reason: Severe Nausea) Qty: 30 3RF Vitamin C 500 mg Tablet 250 mg PO BID gabapentin 300 mg capsule 300 mg PO TID Discharge Orders: Discharge Order (Routine); Ordered 12/11/23 Ordered By: Yogi Dodd Referrals: Lianet Hannah MD [Primary Care Provider] - Discharge Attestations Time Spent in Discharge Care*: greater than 30 min Quality Metrics Clinical Quality Measures [ Venous Thromboembolism { Contraindication to Overlap Therapy: Patient transfer; VTE Discharge Education: Education about anticoagulant therapy/Care Notes given, Education about treatment options/disease process, Medication side effects education, Follow-up arranged;}] Coding Level of Care Code Acute Code for Chg Fwd Diagnoses Acute hypoxic respiratory failure J96.01 Septic shock A41.9; R65.21 Epistaxis R04.0 DVT (deep venous thrombosis) I82.409 C. difficile colitis A04.72 Anemia D64.9 Small cell carcinoma of lung, unspecified laterality, unspecified part of lung C34.90 Laterality: unspecified laterality Lung location: unspecified part of lung COVID-19 U07.1
== END 2023-12-10 14:29 | disposition hospice, inpatient (51) | DRG 4 ==
LOC: ER 15:11 → ICU 16:21 → MEDSURG 12-11 09:50
PROVIDERS: Family Medicine; Internal Medicine; Specialist; Surgery; Admitting Provider Student in an Organized Health Care Education/Training Program; Emergency Provider Emergency Medicine; PCP Family Medicine; Visit Provider Internal Medicine
PROC: (CPT 37191; principal; 2023-11-26 08:30)
PROC: 0B110F4 Bypass Trachea to Cutaneous with Tracheostomy Device, Open Approach (ICD-10-PCS; principal; 2023-12-01 18:00)
PROC: 0CJS8ZZ Inspection of Larynx, Via Natural or Artificial Opening Endoscopic (ICD-10-PCS; 2023-12-01 18:00)
PROC: 0DH63UZ Insertion of Feeding Device into Stomach, Percutaneous Approach (ICD-10-PCS; CPT 43246; 2023-12-01 18:00)
DX: A41.9 Sepsis, unspecified organism (principal); R65.21 Severe sepsis with septic shock; U07.1 COVID-19; J15.9 Unspecified bacterial pneumonia; J80 Acute respiratory distress syndrome; I21.A1 Myocardial infarction type 2; G93.41 Metabolic encephalopathy; C34.2 Malignant neoplasm of middle lobe, bronchus or lung; C79.31 Secondary malignant neoplasm of brain; A04.72 Enterocolitis due to Clostridium difficile, not specified as recurrent; J44.0 Chronic obstructive pulmonary disease with (acute) lower respiratory infection; B37.49 Other urogenital candidiasis; I82.411 Acute embolism and thrombosis of right femoral vein; I82.431 Acute embolism and thrombosis of right popliteal vein; I82.451 Acute embolism and thrombosis of right peroneal vein; Z86.73 Personal history of transient ischemic attack (TIA), and cerebral infarction without residual deficits; I95.9 Hypotension, unspecified; Z79.82 Long term (current) use of aspirin; Z87.01 Personal history of pneumonia (recurrent); Z95.828 Presence of other vascular implants and grafts; G89.29 Other chronic pain; M54.9 Dorsalgia, unspecified; K21.9 Gastro-esophageal reflux disease without esophagitis; I10 Essential (primary) hypertension; I25.2 Old myocardial infarction; E16.2 Hypoglycemia, unspecified; B95.8 Unspecified staphylococcus as the cause of diseases classified elsewhere; R62.7 Adult failure to thrive; Z68.29 Body mass index [BMI] 29.0-29.9, adult; Z66 Do not resuscitate; Z51.5 Encounter for palliative care; R04.0 Epistaxis; D69.6 Thrombocytopenia, unspecified; G47.33 Obstructive sleep apnea (adult) (pediatric); I25.10 Atherosclerotic heart disease of native coronary artery without angina pectoris; Z22.322 Carrier or suspected carrier of Methicillin resistant Staphylococcus aureus
CPT/HCPCS: 0241U; 31500; 36010; 36415; 36416; 36430; 36573; 36591; 36592; 36600; 37191; 51702; 70450; 70491; 71045; 71250; 71260; 74177; 80048; 80051; 80053; 80061; 80202; 80306; 80307; 81001; 82009; 82330; 82436; 82607; 82746; 82803; 82805; 82962; 83036; 83605; 83690; 83735; 83880; 84100; 84133; 84145; 84300; 84484; 85007; 85014; 85018; 85025; 85049; 85347; 85378; 85610; 85730; 86140; 86403; 86850; 86900; 86920; 87040; 87070; 87077; 87086; 87106; 87186; 87205; 87324; 87449; 87493; 87641; 92523; 92610; 93005; 93306; 93970; 94002; 94003; 94640; 94664; 94799; 96360; 96365; 96366; 96367; 96372; 96374; 96375; 96376; 97110; 97162; 97530; 99214; 99291; 99292; C1751; C1769; C1880; C1887; C1894; J0171; J0248; J0330; J1100; J1170; J1450; J1644; J1650; J1940; J1953; J2020; J2060; J2185; J2250; J2270; J2470; J2543; J2704; J2997; J3010; J3370; J3480; J3490; J7030; J7040; J7050; J7626; P9016; P9046; Q9967

== ENCOUNTER 2023-12-10 14:30 | Inpatient (IN) | payer OTHER, MEDICARE, SELFPAY ==
--- NOTE | 2023-12-11 10:21 | P.HP_ITS ---
Providers/Chief Complaint Admitting Physician: Garth Crowder MD Primary Care Provider: Lianet Hannah MD Chief Complaint: ADMIT TO HOSPICE, [address] [place] [address] History of Present Illness Karl Martinez is a 68 year old male metastatic small cell carcinoma, MCA stroke, hypertension, COPD, AAA, coronary artery disease, and recent respiratory failure status post tracheostomy and PEG tube who presents for inpatient hospice admission. Patient has just had prolonged and very complicated hospitalization. He required tracheostomy and PEG tube placement. Goals of care was determined and family would like to respect patient's wishes. He has been transition to inpatient hospice care via [facility]. Family is bedside. He appears comfortable on medication regiment. Review of Systems Narrative: A complete review of systems was obtained and is negative except as stated in HPI. Medications/Allergies Home Medications Medication Instructions Recorded Confirmed Last Taken Type aspirin 81 mg tablet,delayed 81 mg PO QAM 01/07/22 11/21/23 11/20/23 History release nitroglycerin 0.4 mg sublingual 0.4 mg sublingual Q5M PRN Chest 02/21/22 11/21/23 Unknown Rx tablet (Nitrostat) Pain #25 tabs ferrous sulfate 325 mg (65 mg 325 mg PO QPM 06/28/22 11/21/23 11/20/23 History iron) tablet cholecalciferol (vitamin D3) 125 125 mcg PO DAILY 08/09/22 11/21/23 11/20/23 History mcg (5,000 unit) capsule mecobalamin (vitamin B12) 500 mcg 500 mcg PO DAILY 08/09/22 11/21/23 11/20/23 History chewable tablet [id number] 150 mcg-vit K1 1 tab PO DAILY 08/09/22 11/21/23 11/20/23 History 30 mcg-lycop 300 mcg-lutein tablet (Centrum Minis Men 50 Plus) lorazepam 1 mg tablet 0.5 - 1 mg (0.5 - 1 x 1 mg) PO Q6H 12/16/22 11/21/23 Unknown Rx PRN Severe Nausea #30 tabs acetaminophen 650 mg 650 mg PO Q8H PRN pain or 12/17/22 11/21/23 06/04/23 History tablet,extended release (Pain inflammation Relief (acetaminophen)) metoprolol tartrate 25 mg tablet 12.5 mg (1/2 x 25 mg) PO BID #30 06/16/23 11/21/23 11/20/23 Rx tabs omeprazole 20 mg capsule,delayed 20 mg PO BID 90 days #180 caps 08/14/23 11/21/23 11/20/23 Rx release sertraline 25 mg tablet (Zoloft) 25 mg PO DAILY 90 days #90 tabs 08/15/23 11/21/23 11/20/23 Rx tizanidine 2 mg tablet 2 mg PO Q8H PRN muscle spasticity 08/15/23 11/21/23 Unknown Rx #90 tabs acetaminophen 300 mg-codeine 30 mg 1 tab PO Q8H PRN pain 7 days #21 10/13/23 11/21/23 Unknown Rx tablet tabs oxycodone 15 mg tablet 15 mg PO Q6H PRN pain 30 days #120 11/03/23 11/21/23 11/20/23 Rx tabs ascorbic acid (vitamin C) 500 mg 250 mg PO BID 11/21/23 11/21/23 11/20/23 History tablet (Vitamin C) gabapentin 300 mg capsule 300 mg PO TID 11/21/23 11/21/23 Unknown History Allergies Allergy/AdvReac Type Severity Reaction Status Date / Time Fylcuqy-JKC-YkZ Reductase Allergy Unknown Verified 11/20/23 09:17 Inhibitor PFSH Acute PFSH: Medical History Falls frequently Frail elderly Small cell lung cancer Pneumonia Port-A-Cath in place Neutropenia Chronic back pain GERD (gastroesophageal reflux disease) Coronary artery disease Hypertension Abdominal aortic aneurysm Congenital umbilical hernia Carpal tunnel syndrome on both sides Past heart attack COPD (chronic obstructive pulmonary disease) Surgical History Hx of umbilical hernia repair History of tonsillectomy and adenoidectomy History of bilateral carpal tunnel release S/P AAA repair using bifurcation graft History of endovascular stent graft for abdominal aortic aneurysm (AAA) History of heart artery stent S/P rotator cuff repair Family History Family/Other Cancer Father CAD (coronary artery disease) Stroke Brother CAD (coronary artery disease) Brother CAD (coronary artery disease) Diabetes Sister CAD (coronary artery disease) Cancer Chronic kidney disease (CKD) Diabetes Sister Cancer Diabetes Mother Stroke Other Hyperlipidemia Hypertension Psychiatric illness Denies family history of Clotting disorder Dementia Suicide Anesthesia complication Bleeding disorder Lung disease Social History Smoking and tobacco/nicotine status: unknown if used tobacco/nicotine Quit status (tobacco/nicotine): has quit using Year quit tobacco: 2021 Former quit date comment: December 2021 Alcohol intake: never Substance/Drug Use: never Vitals/I&O/Wt Vital signs reviewed in vitals tab Physical Exam Narrative: General: Patient is in a stuporous state. Head: Normocephalic. Neck: No JVD. Tracheostomy. Cardiovascular: Hypotensive. Lungs: Symmetric chest rise. Trach. Skin: No jaundice. No rashes. Abdomen: Feeding tube. Extremities: No cyanosis or clubbing. Musculoskeletal: No erythematous joints. Neurological: No myoclonus. 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: (2) Dyslipidemia: (3) Atherosclerosis of coronary artery of [place] heart without angina pectoris: Qualifiers: Coronary Disease-Associated Artery/Lesion type: [place] artery Qualified Code(s): I25.10 - Atherosclerotic heart disease of [place] coronary artery without angina pectoris (4) Benign essential hypertension with target blood pressure below 140/90: (5) DVT (deep venous thrombosis): (6) Adult failure to thrive: (7) GERD (gastroesophageal reflux disease): Qualifiers: Esophagitis presence: without esophagitis Qualified Code(s): K21.9 - Gastro-esophageal reflux disease without esophagitis (8) Dysphagia: (9) Anemia: (10) Metastasis to brain: (11) Small cell lung cancer: Qualifiers: Laterality: unspecified laterality Lung location: unspecified part of lung Qualified Code(s): C34.90 - Malignant neoplasm of unspecified part of unspecified bronchus or lung (12) Chronic back pain: Qualifiers: Back pain location: thoracic back pain Back pain laterality: midline Qualified Code(s): M54.6 - Pain in thoracic spine; G89.29 - Other chronic pain (13) Left acute arterial ischemic stroke, MCA (middle cerebral artery): (14) COPD (chronic obstructive pulmonary disease): Qualifiers: COPD type: chronic bronchitis Chronic bronchitis type: simple Qualified Code(s): J41.0 - Simple chronic bronchitis (15) Respiratory failure: (16) Frail elderly: (17) Falls frequently: (18) Smoker: Plan Admit to inpatient hospice Continue aggressive treat symptoms Comfort meds ordered Protect patient's dignity Psychosocial support for patient and family Attestations Medical Necessity Statement*: Patient presents for inpatient hospice admission for end-of-life care requiring IV anxiolytics, IV analgesics, IV antiemetics, and supportive care. Coding Level of Care Code Acute Code for Chg Fwd Diagnoses Depression due to physical illness F06.31 Dyslipidemia E78.5 Atherosclerosis of [place] coronary artery of [place] heart without angina pectoris I25.10 Coronary Disease-Associated Artery/Lesion type: [place] artery Benign essential hypertension with target blood pressure below 140/90 I10 DVT (deep venous thrombosis) I82.409 Adult failure to thrive R62.7 Gastroesophageal reflux disease without esophagitis K21.9 Esophagitis presence: without esophagitis Dysphagia R13.10 Anemia D64.9 Metastasis to brain C79.31 Small cell carcinoma of lung, unspecified laterality, unspecified part of lung C34.90 Laterality: unspecified laterality Lung location: unspecified part of lung Chronic midline thoracic back pain M54.6; G89.29 Back pain location: thoracic back pain Back pain laterality: midline Left acute arterial ischemic stroke, MCA (middle cerebral artery) I63.512 Simple chronic bronchitis J41.0 COPD type: chronic bronchitis Chronic bronchitis type: simple Respiratory failure J96.90 Frail elderly R54 Falls frequently R29.6 Smoker F17.200
[2023-12-11] MEDS: atropine 1% op soln 2 mL Btl 3 DROP SUBLINGUAL ×2 (10:58→19:55)
[2023-12-11] MEDS: LORazepam 2 mg/mL INJ 1 mL 1 MG IVP ×5 (12:18→21:48)
[2023-12-11] MEDS: morphine 4 mg/mL SDV 1 mL 6 MG IVP ×5 (12:18→21:49)
--- NOTE | 2023-12-11 13:46 | PC.PHAR ---
PER [facility] NURSE PATIENT WAS DISCHARGED AND READMITTED MEDICATION LIST IS UPDATED BUT NOT SHOWING ..
[2023-12-11 14:28] VITALS: RESP 22
[2023-12-11 17:40] VITALS: RESP 21
[2023-12-11 19:46] VITALS: RESP 28; O2SAT 91
[2023-12-11 20:05] VITALS: BP 95/62; PULSE 100; RESP 21; TEMP 37.4; O2SAT 91
[2023-12-11 21:49] VITALS: RESP 28
[2023-12-11 22:00] VITALS: BP 88/56; PULSE 99; RESP 22; TEMP 36.7; O2SAT 88
[2023-12-11] MEDS: morphine 10 mg/0.5 mL oral liq UD SUBLINGUAL (22:49)
[2023-12-12] MEDS: morphine 10 mg/0.5 mL oral liq UD SUBLINGUAL ×3 (01:06→05:16)
[2023-12-12 04:13] VITALS: BP 100/67; PULSE 102; RESP 21; O2SAT 84
[2023-12-12] MEDS: atropine 1% op soln 2 mL Btl 3 DROP SUBLINGUAL ×3 (04:42→20:18)
[2023-12-12] MEDS: LORazepam 2 mg/mL INJ 1 mL 1 MG IVP ×3 (04:42→22:39)
[2023-12-12] MEDS: LORazepam 2 mg/mL INJ 1 mL IVP ×3 (08:23→16:50)
[2023-12-12] MEDS: morphine 4 mg/mL SDV 1 mL 6 MG IVP ×7 (08:23→22:37)
--- NOTE | 2023-12-12 09:02 | PC.PHAR ---
12/12/23 updated med list so it hardy show confirmed
[2023-12-12 09:20] VITALS: O2SAT 94
--- NOTE | 2023-12-12 09:21 | PC.RESP ---
pt trach deep sxn at this time per request from pt . also requested that o2 be removed from pt so as not to prolong expiration per her words. pt placed on room air. trach care also performed
--- NOTE | 2023-12-12 09:55 | PM.PN ---
Subjective Subjective: Patient admitted to inpatient hospice care. Spouse is bedside and supportive. Patient appears comfortable. He is unable to provide any history due to stuporous status. Continue with comfort care measures. Medications: Reviewed: Yes Vitals/I&O/Wt Last Vital Signs Temp 98.0 F 12/11/23 22:00 Pulse 102 H 12/12/23 04:13 Resp 21 H 12/12/23 04:13 BP 100/67 12/12/23 04:13 Pulse Ox 94 12/12/23 09:20 O2 Del Method Trach Collar 12/12/23 09:20 O2 Flow Rate 2 12/12/23 09:20 12/11/23 12/12/23 12/12/23 22:59 06:59 14:59 Output Total 400 / 400 400 / 800 Balance -400 / -400 -400 / -800 Physical Exam Narrative: General: Patient is in a stuporous state. Head: Normocephalic. Rattle present. Neck: No JVD. Tracheostomy. Cardiovascular: Hypotensive. Lungs: Symmetric chest rise. Trach. Skin: No jaundice. No rashes. Abdomen: Feeding tube. Extremities: No cyanosis or clubbing. Musculoskeletal: No erythematous joints. Neurological: No myoclonus. 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: (2) Dyslipidemia: (3) Atherosclerosis of coronary artery of [place] heart without angina pectoris: Qualifiers: Coronary Disease-Associated Artery/Lesion type: [place] artery Qualified Code(s): I25.10 - Atherosclerotic heart disease of [place] coronary artery without angina pectoris (4) Benign essential hypertension with target blood pressure below 140/90: (5) DVT (deep venous thrombosis): (6) Adult failure to thrive: (7) GERD (gastroesophageal reflux disease): Qualifiers: Esophagitis presence: without esophagitis Qualified Code(s): K21.9 - Gastro-esophageal reflux disease without esophagitis (8) Dysphagia: (9) Anemia: (10) Metastasis to brain: (11) Small cell lung cancer: Qualifiers: Laterality: unspecified laterality Lung location: unspecified part of lung Qualified Code(s): C34.90 - Malignant neoplasm of unspecified part of unspecified bronchus or lung (12) Chronic back pain: Qualifiers: Back pain location: thoracic back pain Back pain laterality: midline Qualified Code(s): M54.6 - Pain in thoracic spine; G89.29 - Other chronic pain (13) Left acute arterial ischemic stroke, MCA (middle cerebral artery): (14) COPD (chronic obstructive pulmonary disease): Qualifiers: COPD type: chronic bronchitis Chronic bronchitis type: simple Qualified Code(s): J41.0 - Simple chronic bronchitis (15) Respiratory failure: (16) Frail elderly: (17) Falls frequently: (18) Smoker: Plan Continue aggressive treat symptoms Comfort meds Protect patient's dignity Psychosocial support Attestations Medical Necessity Statement*: Patient requires ongoing hospitalized care for end of life care, comfort medications, and supportive care. Coding Level of Care Code Acute Code for [facility] Fwd Diagnoses Depression due to physical illness F06.31 Dyslipidemia E78.5 Atherosclerosis of [place] coronary artery of [place] heart without angina pectoris I25.10 Coronary Disease-Associated Artery/Lesion type: [place] artery Benign essential hypertension with target blood pressure below 140/90 I10 DVT (deep venous thrombosis) I82.409 Adult failure to thrive R62.7 Gastroesophageal reflux disease without esophagitis K21.9 Esophagitis presence: without esophagitis Dysphagia R13.10 Anemia D64.9 Metastasis to brain C79.31 Small cell carcinoma of lung, unspecified laterality, unspecified part of lung C34.90 Laterality: unspecified laterality Lung location: unspecified part of lung Chronic midline thoracic back pain M54.6; G89.29 Back pain location: thoracic back pain Back pain laterality: midline Left acute arterial ischemic stroke, MCA (middle cerebral artery) I63.512 Simple chronic bronchitis J41.0 COPD type: chronic bronchitis Chronic bronchitis type: simple Respiratory failure J96.90 Frail elderly R54 Falls frequently R29.6 Smoker F17.200
[2023-12-12 20:14] VITALS: RESP 17; O2SAT 60
[2023-12-12 22:37] VITALS: RESP 12; O2SAT 41
[2023-12-13 00:22] VITALS: RESP 12
[2023-12-13] MEDS: LORazepam 2 mg/mL INJ 1 mL 1 MG IVP ×4 (00:22→06:14)
[2023-12-13] MEDS: morphine 4 mg/mL SDV 1 mL 6 MG IVP ×9 (00:22→16:41)
[2023-12-13] MEDS: atropine 1% op soln 2 mL Btl 3 DROP SUBLINGUAL ×2 (00:25→04:21)
[2023-12-13 02:23] VITALS: RESP 12
[2023-12-13 04:00] VITALS: BP 95/64; PULSE 126; RESP 24; TEMP 38.4; O2SAT 55
[2023-12-13] MEDS: acetaminophen 650 mg Supp PR (04:14)
[2023-12-13 04:15] VITALS: RESP 12; O2SAT 55
[2023-12-13 06:14] VITALS: RESP 15; O2SAT 59
[2023-12-13] MEDS: LORazepam 2 mg/mL INJ 1 mL IVP ×5 (08:39→16:41)
--- NOTE | 2023-12-13 10:17 | PM.PN ---
Subjective Subjective: Patient remains on inpatient hospice care. Hospice nurse bedside. Spouse and other family members bedside. Patient appears comfortable. Medications: Reviewed: Yes Vitals/I&O/Wt Last Vital Signs Temp 101.2 F H 12/13/23 04:00 Pulse 126 H 12/13/23 04:00 Resp 15 12/13/23 06:14 BP 95/64 12/13/23 04:00 Pulse Ox 59 L 12/13/23 06:14 O2 Del Method Room Air 12/13/23 04:00 O2 Flow Rate 2 12/12/23 09:20 12/12/23 12/13/23 12/13/23 22:59 06:59 14:59 Intake Total 0 / 0 0 / 0 Output Total 300 / 300 0 / 300 Balance -300 / -300 0 / -300 Weight last 48 hrs Weight 83.971 kg Physical Exam Narrative: General: Patient is in a stuporous state. Hypoxic. Hypotensive. Febrile. Head: Normocephalic. Rattle present. Neck: No JVD. Tracheostomy. Cardiovascular: Hypotensive. Lungs: Symmetric chest rise. Trach. Skin: No jaundice. No rashes. Abdomen: Feeding tube. Extremities: No cyanosis or clubbing. Musculoskeletal: No erythematous joints. Neurological: No myoclonus. 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: (2) Dyslipidemia: (3) Atherosclerosis of coronary artery of [place] heart without angina pectoris: Qualifiers: Coronary Disease-Associated Artery/Lesion type: [place] artery Qualified Code(s): I25.10 - Atherosclerotic heart disease of [place] coronary artery without angina pectoris (4) Benign essential hypertension with target blood pressure below 140/90: (5) DVT (deep venous thrombosis): (6) Adult failure to thrive: (7) GERD (gastroesophageal reflux disease): Qualifiers: Esophagitis presence: without esophagitis Qualified Code(s): K21.9 - Gastro-esophageal reflux disease without esophagitis (8) Dysphagia: (9) Anemia: (10) Metastasis to brain: (11) Small cell lung cancer: Qualifiers: Laterality: unspecified laterality Lung location: unspecified part of lung Qualified Code(s): C34.90 - Malignant neoplasm of unspecified part of unspecified bronchus or lung (12) Chronic back pain: Qualifiers: Back pain location: thoracic back pain Back pain laterality: midline Qualified Code(s): M54.6 - Pain in thoracic spine; G89.29 - Other chronic pain (13) Left acute arterial ischemic stroke, MCA (middle cerebral artery): (14) COPD (chronic obstructive pulmonary disease): Qualifiers: COPD type: chronic bronchitis Chronic bronchitis type: simple Qualified Code(s): J41.0 - Simple chronic bronchitis (15) Respiratory failure: (16) Frail elderly: (17) Falls frequently: (18) Smoker: Plan Can stop turns for today, seems to be causing more symptoms than benefits Continue comfort meds Protect patient's dignity Psychosocial support Attestations Medical Necessity Statement*: Patient requires ongoing hospitalized care for end of life care, comfort medications, and supportive care. Coding Level of Care Code Acute Code for Chg Fwd Diagnoses Depression due to physical illness F06.31 Dyslipidemia E78.5 Atherosclerosis of [place] coronary artery of [place] heart without angina pectoris I25.10 Coronary Disease-Associated Artery/Lesion type: [place] artery Benign essential hypertension with target blood pressure below 140/90 I10 DVT (deep venous thrombosis) I82.409 Adult failure to thrive R62.7 Gastroesophageal reflux disease without esophagitis K21.9 Esophagitis presence: without esophagitis Dysphagia R13.10 Anemia D64.9 Metastasis to brain C79.31 Small cell carcinoma of lung, unspecified laterality, unspecified part of lung C34.90 Laterality: unspecified laterality Lung location: unspecified part of lung Chronic midline thoracic back pain M54.6; G89.29 Back pain location: thoracic back pain Back pain laterality: midline Left acute arterial ischemic stroke, MCA (middle cerebral artery) I63.512 Simple chronic bronchitis J41.0 COPD type: chronic bronchitis Chronic bronchitis type: simple Respiratory failure J96.90 Frail elderly R54 Falls frequently R29.6 Smoker F17.200
[2023-12-13 10:33] VITALS: PULSE 117; O2SAT 55
--- NOTE | 2023-12-13 19:22 | PC.NURSE ---
[facility] states they are on their way and will be approx 30 minutes until arrival.
--- NOTE | 2023-12-13 20:08 | PC.NURSE ---
MTS This nurse spoke with MTS Coordinator Alejandro at 200412/13/2023. Patient not a candidate for MTS but [facility] is to hold for [facility]. Reference number [id number]. Patient care nurse SILAS Fraser notified.
--- NOTE | 2023-12-13 20:53 | PC.NURSE ---
Patient TOD at 1858 called by SILAS Lewis and SILAS Fraser. Family at bedside at this time. Dr. Dodd notified at 1902 by SILAS Kenney. slab lifting supervisor notified by Lydia Suarez RN at 1903. Postmortem care provided and all lines pulled by SILAS Fraser at 2039. Peg Tube left in place and secured with tape. MTS notified by Lydia Suarez RN at 2004. Awaiting [facility] site return call. All questions answered for family at bedside. No further questions at this time. [facility] notified and warehouse representative in house. home of choice is [facility] in [place], [place]. All personal belongings to go with family at bedside.
--- NOTE | 2023-12-13 21:25 | PC.NURSE ---
Toe and body tags placed and body taken by security Fausto, nick hernández at [id number].
--- NOTE | 2023-12-13 21:44 | PC.NURSE ---
Dentures placed in body bag at head of patient.
--- NOTE | 2023-12-24 17:41 | PM.DDS ---
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: (2) Dyslipidemia: (3) Atherosclerosis of coronary artery of [place] heart without angina pectoris: Qualifiers: Coronary Disease-Associated Artery/Lesion type: [place] artery Qualified Code(s): I25.10 - Atherosclerotic heart disease of [place] coronary artery without angina pectoris (4) Benign essential hypertension with target blood pressure below 140/90: (5) DVT (deep venous thrombosis): (6) Adult failure to thrive: (7) GERD (gastroesophageal reflux disease): Qualifiers: Esophagitis presence: without esophagitis Qualified Code(s): K21.9 - Gastro-esophageal reflux disease without esophagitis (8) Dysphagia: (9) Anemia: (10) Metastasis to brain: (11) Small cell lung cancer: Qualifiers: Laterality: unspecified laterality Lung location: unspecified part of lung Qualified Code(s): C34.90 - Malignant neoplasm of unspecified part of unspecified bronchus or lung (12) Chronic back pain: Qualifiers: Back pain laterality: midline Back pain location: thoracic back pain Qualified Code(s): M54.6 - Pain in thoracic spine; G89.29 - Other chronic pain (13) Left acute arterial ischemic stroke, MCA (middle cerebral artery): (14) COPD (chronic obstructive pulmonary disease): Qualifiers: COPD type: chronic bronchitis Chronic bronchitis type: simple Qualified Code(s): J41.0 - Simple chronic bronchitis (15) Respiratory failure: (16) Frail elderly: (17) Falls frequently: (18) Smoker: Reason for Visit Reason for Visit ADMIT TO HOSPICE, 3 HEREDIA Summary Summary Summary: Karl Martinez is a 68 year old male with past medical history small cell carcinoma, metastasis to brain, Staphylococcus bacteremia in the past, MCA stroke, hypertension was brought into the ER via EMS today because he was found obtunded at home. Patient found to have septic shock, acute respiratory failure, COVID-19 infection, C. diff colitis, acute metabolic encephalopathy, and multiple other metabolic/hematologic derrangements. He had a prolonged and complicated hospital course. He ultimately required tracheostomy and PEG tube placement. In the setting of metastatic small cell cancer and consideration of patient's prior expressed wishes, family opted for comfort/supportive care. He was admitted to inpatient hospice and at 1858 on 12/13/2023 from respiratory failure. Additional Data Confirmation of as documented by pronouncing clinician: no pulse, no respirations, no heart sounds and pupils fixed and dilated Family: at bedside Attending/PCP notified?: Attending notified Was code activated?: No Advance directives?: Yes Hospice patient?: Yes Discharge Plan Discharge Patient Disposition: Probable Cause of Probable cause of : Cardiac arrest DS Attestations Time Spent in /Discharge Care*: greater than 30 min Quality - AMI: AMI present?: No Quality - Stroke: CVA present?: No Quality - VTE: VTE present?: No Coding Level of Care Code Acute Code for Chg Fwd Diagnoses Depression due to physical illness F06.31 Dyslipidemia E78.5 Atherosclerosis of [place] coronary artery of [place] heart without angina pectoris I25.10 Coronary Disease-Associated Artery/Lesion type: [place] artery Benign essential hypertension with target blood pressure below 140/90 I10 DVT (deep venous thrombosis) I82.409 Adult failure to thrive R62.7 Gastroesophageal reflux disease without esophagitis K21.9 Esophagitis presence: without esophagitis Dysphagia R13.10 Anemia D64.9 Metastasis to brain C79.31 Small cell carcinoma of lung, unspecified laterality, unspecified part of lung C34.90 Laterality: unspecified laterality Lung location: unspecified part of lung Chronic midline thoracic back pain M54.6; G89.29 Back pain laterality: midline Back pain location: thoracic back pain Left acute arterial ischemic stroke, MCA (middle cerebral artery) I63.512 Simple chronic bronchitis J41.0 COPD type: chronic bronchitis Chronic bronchitis type: simple Respiratory failure J96.90 Frail elderly R54 Falls frequently R29.6 Smoker F17.200
== END 2023-12-13 21:23 | disposition expired | DRG 951 ==
PROVIDERS: Admitting Provider Student in an Organized Health Care Education/Training Program; PCP Family Medicine; Visit Provider Internal Medicine
DX: Z51.5 Encounter for palliative care (principal); J96.90 Respiratory failure, unspecified, unspecified whether with hypoxia or hypercapnia; C34.90 Malignant neoplasm of unspecified part of unspecified bronchus or lung; C79.31 Secondary malignant neoplasm of brain; Z86.73 Personal history of transient ischemic attack (TIA), and cerebral infarction without residual deficits; I10 Essential (primary) hypertension; J41.0 Simple chronic bronchitis; I25.10 Atherosclerotic heart disease of native coronary artery without angina pectoris; Z95.5 Presence of coronary angioplasty implant and graft; Z93.0 Tracheostomy status; Z93.1 Gastrostomy status; Z79.82 Long term (current) use of aspirin; Z87.01 Personal history of pneumonia (recurrent); Z95.828 Presence of other vascular implants and grafts; G89.29 Other chronic pain; M54.6 Pain in thoracic spine; K21.9 Gastro-esophageal reflux disease without esophagitis; I25.2 Old myocardial infarction; F06.31 Mood disorder due to known physiological condition with depressive features; I46.9 Cardiac arrest, cause unspecified; R29.6 Repeated falls; D64.9 Anemia, unspecified; R13.10 Dysphagia, unspecified; R62.7 Adult failure to thrive; E78.5 Hyperlipidemia, unspecified; Z87.891 Personal history of nicotine dependence; Z86.16 Personal history of COVID-19; Z68.29 Body mass index [BMI] 29.0-29.9, adult; Z86.718 Personal history of other venous thrombosis and embolism; Z98.890 Other specified postprocedural states
CPT/HCPCS: 94799; J2060; J2270